=== PATIENT | male | born 1955 | race American Indian/Alaskan Native ===

== ENCOUNTER 2017-01-19 22:55 | Emergency (ER) | payer BC, OTHER ==
[~2017-01-19] VITALS: Ht 167.6 cm; Wt 85.3 kg
[~2017-01-19 22:55] MED LIST: HYDROCHLOROTHIA25 MG PO; MICARDIS40 MG PO; NIFEDICAL XL60 MG PO; ZOCOR20 MG PO
[2017-01-19] MEDS ORDERED: LIPITOR10 MG PO (23:17)
[2017-01-19] MEDS ORDERED: METOPROLOL TAR100 MG PO (23:17)
[2017-01-19] MEDS ORDERED: IRBESARTAN150 MG PO (23:18)
[2017-01-19] MEDS ORDERED: CYCLOBENZAPRINE10 MG PO (23:18)
[2017-01-20] MEDS ORDERED: POTASSIUM CHLO10 MEQ PO (00:42)
--- NOTE | 2017-01-22 21:45 | EKG ---
[facility] [address] [facility] [place] [address] Signed Sinus rhythm with 1st degree AV block Left axis deviation Voltage criteria for left ventricular hypertrophy Abnormal ECG Confirmed by STEPHIE CHARLES MD ([id number]) on 01/22/2017 9:45:26 PM Electronically Signed By: STEPIHE CHARLES MD 01/22/17 2145 PATIENT NAME: MARTITA PARHAM III Electrocardiogram DATE OF : 53 PHYSICIAN: STEPHIE CHARLES MD REPORT #: [id number] REPORT IS CONFIDENTIAL AND NOT TO BE RELEASED WITHOUT AUTHORIZATION
== END 2017-01-20 01:10 | disposition home or self-care (01) ==
LOC: ED 22:55
DX: R55 Syncope and collapse (principal); E87.6 Hypokalemia; I10 Essential (primary) hypertension; E78.00 Pure hypercholesterolemia, unspecified; Z87.891 Personal history of nicotine dependence; Z88.1 Allergy status to other antibiotic agents; Z79.899 Other long term (current) drug therapy
CPT/HCPCS: 80053; 81001; 84484; 85025; 93005; 93010; 99284

== ENCOUNTER 2019-11-14 11:28 | Emergency (ER) | payer MEDICARE, OTHER ==
[~2019-11-14] VITALS: Ht 167.6 cm; Wt 85.3 kg
--- OUTSIDE RECORDS SUMMARY | ~2019-11-14 | XMS | Encounter Summary ---
Demographics + + + | Address | [address] | | | [place] [address] | + + + | Home Phone | | + + + | Preferred Language | Unknown | + + + | Marital Status | | + + + | Pentecostalism Affiliation | Unknown | + + + | Race | Unknown | + + + | Ethnic Group | Unknown | + + + Author + + + | Author | [facility] | | | and [place] | + + + | Organization | [facility] | | | and [place] | + + + | Address | Unknown | + + + | Phone | Unavailable | + + + Support + + + + + | Name | Relationship | Address | Phone | + + + + + | Alie Escobedo | ECON | [address] | | | | | [place] | | | | | [id number] | | + + + + + Care Team Providers + +------+ + | Care Director Of Accounts Payable Name | Role | Phone | + +------+ + | Stanley Kinney PA-C | PCP | | + +------+ + Encounter Details +--------+ + + + + | Date | Type | Department | Care Team | Description | +--------+ + + + + | 01/23/ | Orders Only | [facility] | [place], | Mass of left lung | | 2019 | | HEMATOLOGY AND | Jennifer Juarez MD | (Primary Dx) | | | | [address]OGY [address] | [address] | [place] | | | | | [place] | [address] | | | | | [address] | | | | | | [phone] | | | +--------+ + + + + Social History + +-------+ +--------+------+ | Tobacco Use | Types | Packs/Day | Years | Date | | | | | Used | | + +-------+ +--------+------+ | Former Smoker | | | | | + +-------+ +--------+------+ + + + | Sex Assigned at | Date Recorded | | | | + + + | Not on file | | + + + documented as of this encounter Plan of Treatment +--------+---------+ + + + | Date | Type | Specialty | Care Team | Description | +--------+---------+ + + + | 01/26/ | Office | Cardiology | Iris Malone, | | | 2019 | Visit | | MD Erasmo ESCOTO | | | | | | [place], [place] | | | | | | [address] | | | | | | | | +--------+---------+ + + + documented as of this encounter Visit Diagnoses + + | Diagnosis | + + | Mass of left lung - Primary | + + documented in this encounter"
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
--- OUTSIDE RECORDS SUMMARY | ~2019-11-14 | XMS | Encounter Summary ---
Demographics + + + | Address | [address] | | | [place] [address] | + + + | Home Phone | | + + + | Preferred Language | Unknown | + + + | Marital Status | | + + + | Shinto Affiliation | NRP | + + + | Race | or | + + + | Ethnic Group | Not or | + + + Author + + + | Author | [facility] | + + + | Organization | [facility] [employer] [facility] | + + + | Address | Unknown | + + + | Phone | Unavailable | + + + Support + + + + + | Name | Relationship | Address | Phone | + + + + + | Kim Sigo | ECON | [address] | | | | | [place] | | | | | [address] | | + + + + + | Key Escobedo | ECON | Unknown | | + + + + + | Cathleen Escobedo | ECON | Unknown | | + + + + + Care Team Providers + +------+ + | Care Casino Runner Name | Role | Phone | + +------+ + | Anupama Juárez | PCP | | + +------+ + Reason for Visit AUTH/CERT +--------+--------+ + + + + | Status | Reason | Specialty | Diagnoses / | Referred By | Referred To | | | | | Procedures | Contact | Contact | +--------+--------+ + + + + | | | | | | | +--------+--------+ + + + + Encounter Details +--------+ + + + + | Date | Type | Department | Care Team | Description | +--------+ + + + + | 10/27/ | Anesthesia | 6A Intra Op 3181 | Garrett Adams MD | | | 2020 | Event | [address] | [address] | | | | | [facility] | [place], | | | | | Hospital Admitting | [place] [address] | | | | | Desk Located on the | [phone] | | | | | 9th floor | | | | | | [facility] [place] | [place], | | | | | [address] | [address] | | | | | | [address] | | | | | | [place], [place] | | | | | | [address] | | | | | | [phone] | | | | | | | | +--------+ + + + + Anesthesia Record + + + + + | Procedure Name | Responsible | Anesthesia Start | Anesthesia Stop Time | | | Anesthesiologist | Time | | + + + + + | LEFT THORACOSCOPY, | Garrett Adasm MD | 10/28/19 8487 | 10/28/19 8578 | | THORACOTOMY, LEFT | | | | | LOWER LOBE SUPERIOR | | | | | SEGMENTECTOMY, | | | | | BRONCHOSCOPY (Left ) | | | | + + + + + +----+---+ + + | Da | T | Event | Comment | | te | i | | | | | m | | | | | e | | | +----+---+ + + | 06 | 1 | | | | /1 | 1 | | | | 7/ | 4 | | | | 20 | 6 | | | | 20 | | | | +----+---+ + + | | 1 | Pt. Check | Prior to anesthesia start, pt. Identified, examined, chart | | | 1 | | reviewed, PARQ held, anesthetic plan made or approved by | | | 4 | | attending anesthesiologist. NPO status confirmed as appropriate | | | 6 | | for procedure Preoperative evaluation: unchanged | +----+---+ + + | | 1 | Block Pause | | | | 2 | | | | | 0 | | | | | 7 | | | +----+---+ + + | | 1 | Epidural | | | | 2 | Start | | | | 2 | | | | | 0 | | | +----+---+ + + | | 1 | Epidural | | | | 2 | Stop | | | | 3 | | | | | 0 | | | +----+---+ + + | | 1 | Eq Check | Anesthesia machine checked Equipment verified | | | 3 | | | | | 5 | | | | | 5 | | | +----+---+ + + | | 1 | An Start | | | | 3 | | | | | 5 | | | | | 7 | | | +----+---+ + + | | 1 | An Start | | | | 3 | Data | | | | 5 | | | | | 9 | | | +----+---+ + + | | 1 | Vitals | Monitors applied Vital signs checked Patient ready for anesthesia | | | 4 | Checked | | | | 0 | | | | | 1 | | | +----+---+ + + | | 1 | Ready | | | | 4 | | | | | 2 | | | | | 9 | | | +----+---+ + + | | 1 | ETT | | | | 4 | | | | | 3 | | | | | 4 | | | +----+---+ + + | | 1 | Abx | | | | 4 | Administere | | | | 4 | d | | | | 1 | | | +----+---+ + + | | 1 | Incision | | | | 4 | | | | | 5 | | | | | 2 | | | +----+---+ + + | | 1 | Quick Note | Conversion to open thoracotomy | | | 5 | | | | | 3 | | | | | 4 | | | +----+---+ + + | | 1 | Intraop and | - Patient/Allergies/Procedure - Relevant PMH - Relevant data | | | 6 | Med | (labs/imaging) - Anesthetic (airway, infusions, drug redoses) - | | | 2 | Handoff | Lines/Drains - I/O - Current Phase and significant events - | | | 1 | | Emergence/dispo plans, post-op concerns | +----+---+ + + | | 1 | An Data Art | Surgeon leaning on cuff | | | 6 | | | | | 3 | | | | | 9 | | | +----+---+ + + | | 1 | AN | | | | 8 | Recruitment | | | | 1 | Breath | | | | 3 | | | +----+---+ + + | | 1 | An Two-Lung | | | | 8 | Vent | | | | 1 | | | | | 4 | | | +----+---+ + + | | 1 | Surgery end | | | | 8 | | | | | 4 | | | | | 2 | | | +----+---+ + + | | 1 | An Extubate | Neuromuscular function Intact. Pharynx suctioned. Patient obeys | | | 8 | | commands. Adequate pulmonary mechanics. | | | 4 | | | | | 6 | | | +----+---+ + + | | 1 | an stop | | | | 8 | data | | | | 4 | | | | | 8 | | | +----+---+ + + | | 1 | PACU Rpt | | | | 8 | Given | | | | 5 | | | | | 6 | | | +----+---+ + + | | 1 | Anesthesia | | | | 8 | End | | | | 5 | | | | | 8 | | | +----+---+ + + | | 2 | Post-Op | | | | 0 | Page | | | | 3 | | | | | 0 | | | +----+---+ + + +------+ | Meds | +------+ + + + | Name | Total | + + + | fentaNYL | 150 mcg | + + + | lidocaine 1.5% EPINEPHrine 1:200K | 5 mL | + + + | vancomycin | 1,500 mg | + + + | custom medication (see comments) | 2 g | + + + | propofol | 200 mg | + + + | rocuronium | 150 mg | + + + | ePHEDrine | 20 mg | + + + | PHENYLEPHrine | 600 mcg | + + + | bupivacaine 0.25% | 8 mL | + + + | ondansetron | 4 mg | + + + | sugammadex | 200 mg | + + + | lactated ringers (LR) infusion | 1,000 mL | + + + | LR bolus | 900 mL | + + + + + | Name | + + | O2 FR Avance (Total Liters) | + + | Air FR Avance (l/min) | + + | Insp Sevo | + + | Et Sevo | + + + + | No blood administrations on file. | + + +--------+ + + + | Type | Details | Placement | Removal | +--------+ + + + | Incisi | 10/28/19; 1613; Kristen ERAZO ; | 10/28/19 1613 by | | | on | Left; Lateral; chest | Divya Kebede RN | | +--------+ + + + | Periph | Left; Hand; 18 g; None; 11/01/19; | 10/28/19 1458 by | 11/01/19 0900 by | | eral | 0900; Discharge | | Katarina Franklin RN | | IV | | | | +--------+ + + + | Periph | 10/28/19; 1100; Right; Hand; 20 | 10/28/19 1100 by | 10/29/19 0729 by | | eral | g; 10/29/19; 0729 | Brooklyn Lopez RN | Yudelka Becerra RN | | IV | | | | +--------+ + + + | Epidur | 10/28/19; 1220 (created via | 10/28/19 1220 by | 10/31/19 1550 by | | al | procedure documentation); | Criss Orona, | Katarina Franklin RN | | | Criss Orona MD; | | | | | 10/31/19; 1550; Other (Comment) | | | | | (removed by LIP) | | | +--------+ + + + | Urethr | 10/28/19; 1410; Isaac GONZALEZ ; | 10/28/19 1410 by | 10/31/19 1230 by | | al | Chaka; 16 Fr.; 10 mL; 10/31/19; | Divya Kebede RN | Katarina Franklin RN | | Ashleyet | 1230; Per order, Per protocol | | | | er | | | | +--------+ + + + | ETT | 10/28/19; 1434 (created via | 10/28/19 1434 by | 10/28/19 1846 by | | | procedure documentation); Mariano | Mariano Kent MD | Nayla Herron, | | | MD [place]; Endotracheal Tube; | | HOUSING INSPECTOR | | | 8.5; Oral; 10/28/19; 1845 | | | +--------+ + + + | ETT | 10/28/19; 1510 (created via | 10/28/19 151 by | 10/28/191845 by | | | procedure documentation); Mariano | Mariano Kent MD | Nayla Herron, | | | MD [place]; Double Lumen; 39; | | HOUSING INSPECTOR | | | Oral; Cuffed; 10/28/19; 1845 | | | +--------+ + + + | Chest | 10/28/19; 1757; Standard; Left; | 10/28/19 1757 by | 10/31/19 1030 by | | Tube | Lateral; Pleural; 28 Fr.; | Lynsey Peace, | Katarina Franklin RN | | | 10/31/19; 1030; (removed by LIP) | RN | | +--------+ + + + documented in this encounter Social History + + + +--------+ + | Tobacco Use | Types | Packs/Day | Years | Date | | | | | Used | | + + + +--------+ + | Former Smoker | Cigarettes | 0.5 | 20 | Quit: 2011 | + + + +--------+ + + +---+---+---+ | Smokeless Tobacco: | | | | | Never Used | | | | + +---+---+---+ + + +---------+ + | Alcohol Use | Drinks/Week | oz/Week | Comments | + + +---------+ + | Not Currently | | | stopped ETOH use | | | | | 2013 | + + +---------+ + + + [...] recent travel history available. | + + + + + + | COVID-19 Exposure | Response | Date Recorded | + + + + | In the last month, have you been in contact | No / Unsure | 10/28/2019 9:08 AM | | with someone who was confirmed or | | PDT | | suspected to have Coronavirus / COVID-19? | | | + + + + documented as of this encounter Plan of Treatment +--------+ + + + + | Date | Type | Specialty | Care Team | Description | +--------+ + + + + | 11/15/ | Telephone-S | Thoracic Surgery | Tab, Ronald, MD | | | 2019 | cyn | | [address] [facility] | | | | | | [address] | | | | | | [place], [place] | | | | | | [address] | | | | | | [phone] | | | | | | | | +--------+ + + + + documented as of this encounter Procedures + +--------+ + + + | Procedure Name | Priori | Date/Time | Associated Diagnosis | Comments | | | ty | | | | + +--------+ + + + | ANE ETT | Routin | 10/28/2019 | | Results for this | | | e | 3:27 PM | | procedure are in the | | | | PDT | | results section. | + +--------+ + + + | ANE ETT | Routin | 10/28/2019 | | Results for this | | | e | 3:26 PM | | procedure are in the | | | | PDT | | results section. | + +--------+ + + + | ANE EPIDURAL | Routin | 10/28/2019 | | Results for this | | | e | 12:27 PM | | procedure are in the | | | | PDT | | results section. | + +--------+ + + + documented in this encounter Results ETT (10/28/2019 3:27 PM PDT) + + + | Narrative | Performed At | + + + | Mariano Kent MD 10/28/2019 3:28 PM AIRWAY MANAGEMENT - | | | ETT Time of Placement: 10/28/2019 3:10 PM Intubation Reason: For | | | surgical procedure Positioning: Supine Location Performed:OR | | | OXYGENATION Patient was preoxygenated No apneic oxygenation Grade: | | | Grade 0 - Ventilation by mask not attempted Manual in-Line | | | Stabilization: No Induction:Routine, without Cricoid Pressure | | | INTUBATION ATTEMPT 1 Blade Type: Alexa Blade #: 4 | | | Laryngoscopic View: Grade I Surgical Airway: no Surgical Airway | | | ETT DETAILS ETT Type:Double-lumen Intubation Type: Oral Cuff | | | Status: Cuffed Size: 39F ETT secured with adhesive tape Depth at | | | Lip: 28 cm Airway Leak: No CONFIRMATION airway not difficult | | | Number of Attempts: 1 Atraumatic placement Positive for | | | EtCO2:Waveform capnography NARRATIVE Attending/Authorizing | | | Provider: Garrett Adams MD Performing Provider: Mariano Kent MD | | | | | + + + ETT (10/28/2019 3:26 PM PDT) + + + | Narrative | Performed At | + + + | Mariano Kent MD 10/28/2019 3:27 PM AIRWAY MANAGEMENT - | | | ETT Time of Placement: 10/28/2019 2:34 PM Intubation Reason: For | | | surgical procedure Positioning: Supine Location Performed:OR | | | OXYGENATION Patient was preoxygenated Grade: Grade 2 - Ventilated by | | | mask with oral airway/adjuvant Manual in-Line Stabilization: No | | | Induction:Routine, without Cricoid Pressure INTUBATION ATTEMPT | | | 1 Videolaryngoscopy: [facility] Standard geometry curved blade | | | Laryngoscopic View: Grade II ETT DETAILS ETT Type:Standard, Hi-Lo | | | Cuffed Intubation Type: Oral Size: 8.5 Depth at Lip: 21 cm | | | CONFIRMATION airway not difficult Number of Attempts: 1 Traumatic | | | placment Positive for EtCO2:Waveform capnography Procedural | | | Complications: Lip injury NARRATIVE Attending/Authorizing | | | Provider: Garrett Adams MD Performing Provider: Mariano Kent MD | | | Procedure Comments: Lip laceration on lower right lip noted. Pressure | | | held, bleeding stopped. | | + + + Epidural (10/28/2019 12:27 PM PDT) + + + | Narrative | Performed At | + + + | Lucio Calhoun MD 10/28/2019 3:02 PM Epidural Placement | | | Start Time: 10/28/2019 12:20 PM Placement End Time: 10/28/2019 12:30 PM | | | Block Method: Catheter Block Reason: at surgeon's request for | | | postop pain management Location Performed: Preop The patient was | | | identified, site verified and marked, full PARQ done PROCEDURE | | | Number of Attempts: 1 Note Type: Adult Type Epidural: Epidural | | | Placement Patient Position: Sitting Approach: Paramedian | | | Monitors: NIBP, SpO2 and EKG Skin Prep: Chloraprep Team Pause: | | | Performed per policy Protective Barrier: Cap, Mask, Gown, Hand scrub | | | and Sterile Gloves Patient Status: Sedated but participating | | | Supplemental O2 given TECHNOLOGY USED Technology used: | | | Ultrasound guided and Hodges technique Ultrasound Image: Not | | | saved or printed PLACEMENT Needle Type: Tuohy Needle Size: 17 G | | | Needle Length (cm): 9 cm Vertebral Interspace: T5-6 Needle | | | Insertion Depth: 4.5 Catheter at Skin Depth: 10 Loss of Resistance: | | | saline Paresthesia: No CSF: no cerebrospinal fluid with | | | aspiration Blood Return on Aspiration: no blood return on aspiration | | | ASSESSMENT See MAR for Drug and Dose Test dose given no | | | test dose reaction Sensory band tested by: Pin prick sensation | | | Sensory Band Side: Bilateral Upper Level: T5 Lower Level: T10 | | | Complications: No apparent complications Technical Difficulty: | | | Easy Intended Analgesia: Deferred Procedure Abandoned?: No | | | NARRATIVE Attending was physically present for the critical portions | | | of the procedure as described in the procedure note | | | Attending/Authorizing Provider: Garrett Adams MD Performing Provider: | | | Criss Orona MD Procedure Comments: Uneventful epidural | | | placement, successful on 1st attempt. Ultrasound used to elana | | | landmarks prior to starting attempt. Placed at T5-6 via R paramedian | | | approach. Clear STACY to saline at 4.5 cam. Manometry briskly | | | positive. Catheter passed easily and without paresthesias and | | | secured at 10cm at the skin. Catheter aspiration negative for heme | | | and CSF. Test dose given and negative. T5-10 sensory level after 5mL | | | of test dose. Pt tolerated the procedure well. No apparent | | | complications. | | + + + documented in this encounter Visit Diagnoses Not on filedocumented in this encounter Administered Medications + +--------+ +------+------+------+ | Medication Order | MAR | Action | Dose | Rate | Site | | | Action | Date | | | | + +--------+ +------+------+------+ | bupivacaine (PF) | Given | 10/28/19 | 4 mL | | | | (MARCAINE,SENSORCAINE-MPF) 0.25 % | | 20 6:19 | | | | | (2.5 mg/mL) injection | | PM PDT | | | | | INTRAPROCEDURE PRN, Starting Wed | | | | | | | 10/28/19 at 1743, Until Wed | | | | | | | 10/28/19 at 1858 | | | | | | + +--------+ +------+------+------+ +-------+ +------+---+---+ | Given | 10/28/19 | 4 mL | | | | | 20 5:43 | | | | | | PM PDT | | | | +-------+ +------+---+---+ +---+---+ | | | +---+---+ + +-------+ +-------+---+---+ | ePHEDrine injection | Given | 10/28/19 | 10 mg | | | | INTRAPROCEDURE PRN, Starting Wed | | 20 2:39 | | | | | 10/28/19 at 1436, Until Wed | | PM PDT | | | | | 10/28/19 at 1858 | | | | | | + +-------+ +-------+---+---+ +-------+ +-------+---+---+ | Given | 10/28/19 | 10 mg | | | | | 20 2:36 | | | | | | PM PDT | | | | +-------+ +-------+---+---+ +---+---+ | | | +---+---+ + +-------+ +---------+---+---+ | fentaNYL (SUBLIMAZE) injection | Given | 10/28/19 | 100 mcg | | | | INTRAPROCEDURE PRN, Starting Wed | | 20 2:31 | | | | | 10/28/19 at 1209, Until Wed | | PM PDT | | | | | 10/28/19 at 1858 | | | | | | + +-------+ +---------+---+---+ +-------+ +--------+---+---+ | Given | 10/28/19 | 50 mcg | | | | | 20 12:09 | | | | | | PM PDT | | | | +-------+ +--------+---+---+ +---+---+ | | | +---+---+ + + + +---+---+---+ | lactated ringers (LR) bolus | given by | 10/28/19 | | | | | INTRAPROCEDURE CONTINUOUS PRN, | | 20 6:55 | | | | | Starting 10/28/19 at 1445, | anesthes | PM PDT | | | | | Until 10/28/19 at 1858 | iology | | | | | + + + +---+---+---+ + + +---+---+---+ | given by anesthesiology | 10/28/19 | | | | | | 20 4:21 | | | | | | PM PDT | | | | + + +---+---+---+ | New Bag | 10/28/19 | | | | | | 20 2:45 | | | | | | PM PDT | | | | + + +---+---+---+ +---+---+ | | | +---+---+ + + + +---+---+---+ | lactated ringers (LR) infusion | given by | 10/28/19 | | | | | 10 mL/hr, intravenous, PROCEDURE | | 20 4:20 | | | | | CONTINUOUS, Starting Sat10/28/19 | anesthes | PM PDT | | | | | at 1030, Until Sat10/28/19 at | iology | | | | | | 2059 | | | | | | + + + +---+---+---+ +---------+ + + +---+ | New Bag | 10/28/19 | 10 mL/hr | 10 mL/hr | | | | 20 10:47 | | | | | | AM PDT | | | | +---------+ + + +---+ +---+---+ | | | +---+---+ + +-------+ +------+---+---+ | lidocaine-epinephrine injection | Given | 10/28/19 | 2 mL | | | | INTRAPROCEDURE PRN, Starting | | 20 12:29 | | | | | 10/28/19 at 1225, Until Wed | | PM PDT | | | | | 10/28/19 at 1858 | | | | | | + +-------+ +------+---+---+ +-------+ +------+---+---+ | Given | 10/28/19 | 3 mL | | | | | 20 12:25 | | | | | | PM PDT | | | | +-------+ +------+---+---+ +---+---+ | | | +---+---+ + +-------+ +------+---+---+ | ondansetron (ZOFRAN) injection | Given | 10/28/19 | 4 mg | | | | INTRAPROCEDURE PRN, Starting Wed | | 20 5:50 | | | | | 10/28/19 at 1750, Until Wed | | PM PDT | | | | | 10/28/19 at 1858 | | | | | | + +-------+ +------+---+---+ +---+---+ | | | +---+---+ + +-------+ +-----+---+---+ | OPTIME - CUSTOM INTRAPROCEDURE | Given | 10/28/19 | 2 g | | | | PRN, Starting 10/28/19 at | | 20 2:46 | | | | | 1446, Until 10/28/19 at 1858 | | PM PDT | | | | + +-------+ +-----+---+---+ +---+---+ | | | +---+---+ + +-------+ +---------+---+---+ | PHENYLEPHrine 100 mcg/mL IV | Given | 10/28/19 | 100 mcg | | | | syringe INTRAPROCEDURE PRN, | | 20 6:28 | | | | | Starting Sat10/28/19 at 1628, | | PM PDT | | | | | Until Sat10/28/19 at 1858 | | | | | | + +-------+ +---------+---+---+ +-------+ +---------+---+---+ | Given | 10/28/19 | 100 mcg | | | | | 20 6:14 | | | | | | PM PDT | | | | +-------+ +---------+---+---+ | Given | 10/28/19 | 100 mcg | | | | | 20 6:05 | | | | | | PM PDT | | | | +-------+ +---------+---+---+ +---+---+ | | | +---+---+ + +-------+ +--------+---+---+ | propofoL (DIPRIVAN) injection | Given | 10/28/19 | 200 mg | | | | INTRAPROCEDURE PRN, Starting Wed | | 20 2:31 | | | | | 10/28/19 at 1431, Until Wed | | PM PDT | | | | | 10/28/19 at 1858 | | | | | | + +-------+ +--------+---+---+ +---+---+ | | | +---+---+ + +-------+ +-------+---+---+ | rocuronium injection | Given | 10/28/19 | 30 mg | | | | INTRAPROCEDURE PRN, Starting Wed | | 20 5:19 | | | | | 10/28/19 at 1431, Until Wed | | PM PDT | | | | | 10/28/19 at 1858 | | | | | | + +-------+ +-------+---+---+ +-------+ +-------+---+---+ | Given | 10/28/19 | 20 mg | | | | | 20 4:34 | | | | | | PM PDT | | | | +-------+ +-------+---+---+ | Given | 10/28/19 | 50 mg | | | | | 20 3:21 | | | | | | PM PDT | | | | +-------+ +-------+---+---+ +---+---+ | | | +---+---+ + +-------+ +--------+---+---+ | sugammadex (BRIDION) IV | Given | 10/28/19 | 200 mg | | | | INTRAPROCEDURE PRN, Starting Wed | | 20 6:15 | | | | | 10/28/19 at 1815, Until Wed | | PM PDT | | | | | 10/28/19 at 1858 | | | | | | + +-------+ +--------+---+---+ +---+---+ | | | +---+---+ + +-------+ + +---+---+ | vancomycin (VANCOCIN) injection | Given | 10/28/19 | 1,500 mg | | | | INTRAPROCEDURE PRN, Starting | | 20 2:15 | | | | | 10/28/19 at 1442, Until Wed | | PM PDT | | | | | 10/28/19 at 1858 | | | | | | + +-------+ + +---+---+ +---+---+ | | | +---+---+ documented in this encounter"
--- OUTSIDE RECORDS SUMMARY | ~2019-11-14 | XMS | Encounter Summary ---
Demographics + + + | Address | [address] | | | [place] [address] | + + + | Home Phone | | + + + | Preferred Language | Unknown | + + + | Marital Status | | + + + | Muslim Affiliation | Unknown | + + + | Race | Unknown | + + + | Ethnic Group | Unknown | + + + Author + + + | Author | [facility] | | | and [place] | + + + | Organization | [facility] | | | and [place] | + + + | Address | Unknown | + + + | Phone | Unavailable | + + + Support + + + + + | Name | Relationship | Address | Phone | + + + + + | Alie Ecsobedo | ECON | [address] | | | | | [place] | | | | | [address] | | + + + + + Care Team Providers + +------+ + | Care Radio Survey Worker Name | Role | Phone | + +------+ + | Stanley Kinney PA-C | PCP | | + +------+ + Reason for Referral Diagnostic/Screening (Routine) +--------+--------+ + + + + | Status | Reason | Specialty | Diagnoses / | Referred By | Referred To | | | | | Procedures | Contact | Contact | +--------+--------+ + + + + | Closed | | Radiology | Diagnoses | [place], | [facility] [address] | | | | | Thoracic | MD Iris | [address] | | | | | aortic | [address] | [place], [place] | | | | | aneurysm | [place] | [address] | | | | | without | [place] [address] | Phone: | | | | | rupture | [place], [place] | [phone] | | | | | (HCC) | [address] | Fax: | | | | | Essential | Phone: | [phone] | | | | | hypertension | [phone] | | | | | | Mixed | Fax: | | | | | | hyperlipidem | [phone] | | | | | | ia | | | | | | | Procedures | | | | | | | CT Angiogram | | | | | | | Chest W | | | | | | | Contrast | | | +--------+--------+ + + + + Reason for Visit Diagnostic/Screening (Routine) +--------+--------+ + + + + | Status | Reason | Specialty | Diagnoses / | Referred By | Referred To | | | | | Procedures | Contact | Contact | +--------+--------+ + + + + | Closed | | Radiology | Diagnoses | [place], | [facility] [address] | | | | | Thoracic | MD Iris | [address] | | | | | aortic | [address] | [place], [place] | | | | | aneurysm | [address] | [address] | | | | | without | [place] [address] | Phone: | | | | | rupture | [place], [place] | [phone] | | | | | (HCC) | [address] | Fax: | | | | | Essential | Phone: | [phone] | | | | | hypertension | [phone] | | | | | | Mixed | Fax: | | | | | | hyperlipidem | [phone] | | | | | | ia | | | | | | | Procedures | | | | | | | CT Angiogram | | | | | | | Chest W | | | | | | | Contrast | | | +--------+--------+ + + + + Encounter Details +--------+ + + + + | Date | Type | Department | Care Team | Description | +--------+ + + + + | 01/20/ | Hospital | [facility] | Iris Malone, | Thoracic aortic | | 2019 | Encounter | [facility] | MD [address] | aneurysm without | | | | [address] | [place], [place] | rupture (HCC); | | | | [place], [place] | [address] | Essential | | | | [address] | | hypertension; Mixed | | | | [phone] | | hyperlipidemia | +--------+ + + + + Social [...] + + documented as of this encounter Medications at Time of Discharge + + + +---------+ + + | Medication | Sig | Dispensed | Refills | Start | End Date | | | | | | Date | | + + + +---------+ + + | aspirin 81 MG EC | Take 81 mg by mouth | | 0 | 02/20/20 | | | tablet | daily with | | | 16 | | | | breakfast. | | | | | + + + +---------+ + + | atorvaSTATin | Take 10 mg by mouth | | 0 | 02/14/20 | | | (LIPITOR) 10 mg | nightly. | | | 17 | | | tablet | | | | | | + + + +---------+ + + | | Take 25 mg by mouth | | 0 | 12/08/19 | | | hydroCHLOROthiazide | daily. | | | 16 | | | 25 mg tablet | | | | | | + + + +---------+ + + | irbesartan | Take 1 tablet by | 90 | 2 | 02/28/20 | | | (AVAPRO) 300 mg | mouth nightly. | tablet | | 17 | | | tablet | | | | | | + + + +---------+ + + | methocarbamol | Take 500 mg by mouth | | 0 | 12/08/19 | | | (ROBAXIN) 500 mg | every 6 (six) hours | | | 16 | | | tablet | as needed. | | | | | + + + +---------+ + + | metoprolol | Take 100 mg by mouth | | 0 | 12/08/19 | | | tartrate (LOPRESSOR) | 2 (two) times | | | 16 | | | 100 mg tablet | daily. | | | | | + + + +---------+ + + | cyclobenzaprine | Take 10 mg by mouth | | 0 | 02/14/20 | | | (FLEXERIL) 10 mg | nightly as needed | | | 17 | 0 | | tablet | for Muscle spasms. | | | | | + + + +---------+ + + documented as of this encounter Plan of Treatment +--------+---------+ + + + | Date | Type | Specialty | Care Team | Description | +--------+---------+ + + + | 01/26/ | Office | Cardiology | Iris Malone, | | | 2019 | Visit | | MD [address]asm[address] | | | | | | [place] | | | | | | [address] | | | | | | | | +--------+---------+ + + + documented as of this encounter Procedures + +--------+ + + + | Procedure Name | Priori | Date/Time | Associated Diagnosis | Comments | | | ty | | | | + +--------+ + + + | CT ANGIOGRAM CHEST W | Routin | 01/20/2019 | Thoracic aortic | Results for this | | CONTRAST | e | 12:27 PM | aneurysm without | procedure are in the | | | | PDT | rupture (HCC) | results section. | | | | | Essential | | | | | | hypertension Mixed | | | | | | hyperlipidemia | | + +--------+ + + + | CREATININE, POCT | Routin | 01/20/2019 | | Results for this | | | e | 11:49 AM | | procedure are in the | | | | PDT | | results section. | + +--------+ + + + documented in this encounter Results CT Angiogram Chest W Contrast (01/20/2019 12:27 PM PDT) + + | Specimen | + + | | + + + + | Addenda | + + | Addendum by Aquiles Mirza MD on 02/02/2019 7:49 AM ADDENDUM BEGINS Please note the | | following clarification within the findings: CHEST Lungs, Pleura and Airways: In | | the left LOWER lobe, there is a mixed ground-glass and solid spiculated nodule seen | | measuring 1.9 cm x 1.2 cm on series 8, image 58. Mediastinum: No cardiomegaly or | | pericardial effusion.. Lymph Nodes: No enlarged lymph nodes seen. Upper Abdomen: No | | significant abnormality appreciated. BODY WALL Soft Tissues: No significant | | abnormality appreciated. Bones: Patient is post sternotomy. No acute or destructive | | osseous process seen. Signed by: Liliana Mirza Amit Sign Date/Time: | | 02/02/2019 7:45 AM ADDENDUM ENDS | + + + + + | Narrative | Performed At | + + + | CT ANGIOGRAM CHEST CLINICAL INFORMATION: Thoracic aortic | [facility] | | aneurysm without rupture. Essential hypertension Mixed hyperlipidemia | | | COMPARISON: None PROCEDURE: Thin-section images of the | | | entire chest after the administration of 100 ml Omnipaque 350 | | | intravenous contrast. 3D and multiplanar reconstructions were | | | performed. At least one of the following CT dose optimization | | | techniques were used: Automated exposure control; Adjustment of mA | | | and/or kV according to patient size; Use of iterative reconstruction | | | technique. FINDINGS: AORTA: The patient appears to be post | | | ascending thoracic aortic surgery. The ascending aorta measures 3.8 | | | cm in maximum diameter. The aortic dissection appreciated. Mild | | | atherosclerosis. No narrowing noted involving the brachiocephalic, | | | subclavian and visualized proximal common carotid and vertebral | | | arteries. No narrowing noted involving the visualized celiac trunk. | | | PULMONARY ARTERIES: Do not appear to be well opacified with | | | contrast. CHEST Lungs, Pleura and Airways: In the left upper | | | lobe, there is a mixed ground-glass and solid spiculated nodule seen | | | measuring 1.9 cm x 1.2 cm on series 8, image 58. Mediastinum: | | | mediastinum Lymph Nodes: chest nodes Upper Abdomen: upper abdomen | | | BODY WALL Soft Tissues: wall Bones: bones IMPRESSION: 1. Left | | | lower lobe mixed ground-glass and solid spiculated nodule measuring | | | 1.9 cm x 1.2 cm. Lung lesion with imaging features highly | | | suggestive of malignancy. Recommendation: Thoracic specialist referral | | | for definitive management. Consider staging PET CT. (Lung RADS4x | | | recommendation). In addition, if prior examinations are available, | | | comparison is also recommended to assess for stability. 2. No | | | enlarged lymph nodes seen. 3. Patient appears to be post ascending | | | thoracic aortic surgery. The ascending aorta measures 3.8 cm in | | | maximum diameter. No aortic dissection appreciated. 4. Please | | | refer to the findings section for additional details. Findings | | | will be called immediately to the referring physician. | | | Signed by: Liliana Mirza, Aquiles Sign Date/Time: 01/21/2019 10:41 AM | | + + + + + | Procedure Note | + + | Robby, Rad Results In - 01/21/2019 10:45 AM PDT | | CT ANGIOGRAM CHEST | | | | CLINICAL INFORMATION: | | Thoracic aortic aneurysm without rupture. Essential hypertension Mixed | | hyperlipidemia | | | | COMPARISON: | | None | | | | PROCEDURE: | | Thin-section images of the entire chest after the administration of 100 | | ml Omnipaque 350 intravenous contrast. 3D and multiplanar | | reconstructions were performed. | | | | At least one of the following CT dose optimization techniques were | | used: Automated exposure control; Adjustment of mA and/or kV according | | to patient size; Use of iterative reconstruction technique. | | | | FINDINGS: | | AORTA: The patient appears to be post ascending thoracic aortic | | surgery. The ascending aorta measures 3.8 cm in maximum diameter. The | | aortic dissection appreciated. Mild atherosclerosis. No narrowing | | noted involving the brachiocephalic, subclavian and visualized proximal | | common carotid and vertebral arteries. No narrowing noted involving | | the visualized celiac trunk. | | | | PULMONARY ARTERIES: Do not appear to be well opacified with contrast. | | | | CHEST | | Lungs, Pleura and Airways: In the left upper lobe, there is a mixed | | ground-glass and solid spiculated nodule seen measuring 1.9 cm x 1.2 cm | | on series 8, image 58. | | Mediastinum: mediastinum | | Lymph Nodes: chest nodes | | Upper Abdomen: upper abdomen | | | | BODY WALL | | Soft Tissues: wall | | Bones: bones | | | | IMPRESSION: | | 1. Left lower lobe mixed ground-glass and solid spiculated nodule | | measuring 1.9 cm x 1.2 cm. Lung lesion with imaging features highly | | suggestive of malignancy. Recommendation: Thoracic specialist referral | | for definitive management. Consider staging PET CT. (Lung RADS4x | | recommendation). In addition, if prior examinations are available, | | comparison is also recommended to assess for stability. | | 2. No enlarged lymph nodes seen. | | 3. Patient appears to be post ascending thoracic aortic surgery. The | | ascending aorta measures 3.8 cm in maximum diameter. No aortic | | dissection appreciated. | | 4. Please refer to the findings section for additional details. | | | | | | Findings will be called immediately to the referring physician. | | | | | | | | | | Signed by: Liliana Mirza, Aquiles | | Sign Date/Time: 01/21/2019 10:41 AM | + + + +---------+ + + | Performing | Address | City/State/Zipcode | Phone Number | | Organization | | | | + +---------+ + + | [facility] | | | | + +---------+ + + POC Creatinine (01/20/2019 11:49 AM PDT) + + + + + + | Component | Value | Ref Range | Performed | Pathologist | | | | | At | Signature | + + + + + + | Creatinine, | 0.7 | 0.7 - 1.5 mg/dL | [facility] | | | POC | | | LABORATORY | | + + + + + + | EGFR, POC | >60Comment: GFR <60: | mL/min/1.73m2 | [facility] | | | | CHRONIC KIDNEY DISEASE, | | LABORATORY | | | | IF FOUND OVER A 3 MONTH | | | | | | PERIOD.GFR <15: KIDNEY | | | | | | FAILURE.FOR | | | | | | AMERICANS, MULTIPLY THE | | | | | | CALCULATED GFR BY | | | | | | 1.210.This eGFR is | | | | | | calculated using the | | | | | | [facility] traceable | | | | | | equation.Testing | | | | | | performed at [facility] | | | | | | [facility];[place], [place] | | | | | | [address] | | | | + + + + + + + + | Specimen | + + | | + + + + + + + | Performing | Address | City/State/Zipcode | Phone Number | | Organization | | | | + + + + + | [facility] | [address] | [place] [address] | [phone] | + + + + + documented in this encounter Visit Diagnoses + + | Diagnosis | + + | Thoracic aortic aneurysm without rupture (HCC) Thoracic aneurysm without mention of | | rupture | + + | Essential hypertension Unspecified essential hypertension | + + | Mixed hyperlipidemia | + + documented in this encounter Administered Medications + +--------+ +---------+------+------+ | Medication Order | MAR | Action | Dose | Rate | Site | | | Action | Date | | | | + +--------+ +---------+------+------+ | iohexol (OMNIPAQUE 350) 350 | Given | 01/21/20 | 100 mLs | | | | mg/mL injection 100 mL 100 mL, | | 19 12:27 | | | | | Intravenous, ONCE PRN, Other, | | PM PDT | | | | | Starting 01/20/19 at 1226, For | | | | | | | 1 dose, Cat Scanner | | | | | | + +--------+ +---------+------+------+ +---+---+ | | | +---+---+ documented in this encounter"
--- OUTSIDE RECORDS SUMMARY | ~2019-11-14 | XMS | Encounter Summary ---
Demographics + + + | Address | [address] | | | [place] [address] | + + + | Home Phone | | + + + | Preferred Language | Unknown | + + + | Marital Status | | + + + | Catholic Affiliation | NRP | + + + | Race | or | + + + | Ethnic Group | Not or | + + + Author + + + | Author | [facility] | + + + | Organization | [facility] | + + + | Address | Unknown | + + + | Phone | Unavailable | + + + Support + + + + + | Name | Relationship | Address | Phone | + + + + + | Kim Sigo | ECON | [address] | | | | | [place] | | | | | [address] | | + + + + + | Key Escobedo | ECON | Unknown | | + + + + + | Cathleen Escobedo | ECON | Unknown | | + + + + + Care Team Providers + +------+ + | Care Grouter Helper Name | Role | Phone | + +------+ + | Anupama Juárez | PCP | | + +------+ + Encounter Details +--------+ + + + + | Date | Type | Department | Care Team | Description | +--------+ + + + + | 10/27/ | Procedure | [address] | | | | 2020 | Pass | [facility] | | | | | | [facility] | | | | | | Desk Located on the | | | | | | 9th floor | | | | | | [place], [place] | | | | | | [address] | | | +--------+ + + + + Social History + + + +--------+ + [...] | Ronald Barth MD | | | 2019 | cyn | | [address] [facility] | | | | | | [address] | | | | | | [place], [place] | | | | | | [address] | | | | | | [phone] | | | | | | | | +--------+ + + + + documented as of this encounter Visit Diagnoses Not on filedocumented in this encounter"
--- OUTSIDE RECORDS SUMMARY | ~2019-11-14 | XMS | Encounter Summary ---
Demographics + + + | Address | [address] | | | [place] [address] | + + + | Home Phone | | + + + | Preferred Language | Unknown | + + + | Marital Status | | + + + | Temple Affiliation | Unknown | + + + | Race | Unknown | + + + | Ethnic Group | Unknown | + + + Author + + + | Author | [facility] | | | and [place] | + + + | Organization | [facility] | | | and [place] | + + + | Address | Unknown | + + + | Phone | Unavailable | + + + Support + + + + + | Name | Relationship | Address | Phone | + + + + + | Floranjit Fanny | ECON | [address] | | | | | [place] | | | | | [address] | | + + + + + Care Team Providers + +------+ + | Care Locomotive Firer/Fireman Name | Role | Phone | + +------+ + | Raiza Slaughter PA-C | PCP | | + +------+ + Encounter Details +--------+ + + + + | Date | Type | Department | Care Team | Description | +--------+ + + + + | 12/07/ | Orders Only | [facility] | Conversion | | | 2016 | | CONVERSION [address] | Transaction, | | | | | [address] | Provider Unknown | | | | | [place] | [phone] | | | | | [address] | | | | | | [phone] | | | +--------+ + + + + Social History + +-------+ +--------+------+ | Tobacco Use | Types | Packs/Day | Years | Date | | | | | Used | | + +-------+ +--------+------+ | Never Assessed | | | | | + +-------+ [...] [place] | | | | | | [id number] | | | | | | | | +--------+---------+ + + + documented as of this encounter Visit Diagnoses Not on filedocumented in this encounter"
--- OUTSIDE RECORDS SUMMARY | ~2019-11-14 | XMS | Encounter Summary ---
Demographics + + + | Address | [address] | | | [place] [address] | + + + | Home Phone | | + + + | Preferred Language | Unknown | + + + | Marital Status | | + + + | Islam Affiliation | NRP | + + + | Race | or | + + + | Ethnic Group | Not or | + + + Author + + + | Author | [facility] | + + + | Organization | [facility] | + + + | Address | Unknown | + + + | Phone | Unavailable | + + + Support + + + + + | Name | Relationship | Address | Phone | + + + + + | Kim Sigo | ECON | [address] | | | | | [place] | | | | | [address] | | + + + + + | Key Escobedo | ECON | Unknown | | + + + + + | Cathleen Escobedo | ECON | Unknown | | + + + + + Care Team Providers + +------+ + | Care Brim Flexer Name | Role | Phone | + +------+ + | Anuapma Juárez | PCP | | + +------+ + Encounter Details +--------+---------+ + + + | Date | Type | Department | Care Team | Description | +--------+---------+ + + + | 06/25/ | Office | Cardiothoracic | Destin Scott, | H/O ascending aortic | | 2015 | Visit | Surgery at The | [address] | replacement | | | | [place] [address] | [place] [address] | (Primary Dx) | | | | [address] | [phone] | | | | | [place], [place] | | | | | | [address] | | | | | | [phone] | | | +--------+---------+ + + + Social History + +-------+ [...] + + documented as of this encounter Last Filed Vital Signs + + + + + | Vital Sign | Reading | Time Taken | Comments | + + + + + | Blood Pressure | 146/90 | 06/25/2014 9:14 AM | | | | | PST | | + + + + + | Pulse | 72 | 06/25/2014 9:14 AM | | | | | PST | | + + + + + | Temperature | - | - | | + + + + + | Respiratory Rate | 16 | 06/25/2014 9:14 AM | | | | | PST | | + + + + + | Oxygen Saturation | 98% | 06/25/2014 9:14 AM | | | | | PST | | + + + + + | Inhaled Oxygen | - | - | | | Concentration | | | | + + + + + | Weight | 98.9 kg (218 lb) | 06/25/2014 9:14 AM | | | | | PST | | + + + + + | Height | - | - | | + + + + + | Body Mass Index | 35.2 | 09/04/2013 5:41 PM | | | | | PDT | | + + + + + documented in this encounter Progress Notes Destin Scott MD - 06/25/2014 9:24 AM [facility] [place] Date of Service: 06/25/2014 Referring Providers: Andrea Chou MD Patient Care Team: Anupama Juárez as PCP - General (NURSE PRACTITIONER FAMILY) Reason for Visit: Aortic Follow-up Subjective: Mr. Richard Escobedo is well known to our service. Briefly, he is a 59 year old m vince who presented with an Ascending Aortic Aneurysm and underwent Aneurysms repir with A 30 mm dacron tube graft 09/04/2013. He did well postoperateively. He has some chrnic neck pa in and is being treated for a URI with Azithromycin. He has been followed in our clinic wit h serial imaging and his most recent imaging from May shows a stable ascending aortic re construction. He has a 1mm nodule in the IRENE that has been stable. He has some intermittent SOB. No PND and no overt heart failure symptoms. He denies ortho pnea, palpitations and chest pain. The patient also denies dizziness, focal weakness or num bness, abdominal pain, a cool extremity, or other symptoms consistent with malperfusion. Objective: Vital Signs: BP 146/90 | Pulse 72 | RR 16 | Wt 98.884 kg (218 lb) | SpO2 98% | BMI 35.2 kg/ (m^2) General: healthy, alert and cooperative. Chest: Percussion normal. Good diaphragmatic excursion. Lungs clear to auscultation bilater ally.. Chest Incision: Well healed. Cardiovascular: PMI normal. No lifts, heaves, or thrills. RRR. Heart sounds normal. No mur murs, clicks or gallops. Abdominal aorta pulsation normal. Carotid, Femoral and pedal pulse s 4+ bilaterally. No arterial bruits. No peripheral edema.. Extremities: Extremities normal. No deformities, edema, or skin discoloration. Peripheral p ulses 2+ equal with peripheral filling less than 2 seconds.. Studies: I personally reviewed the patient's CT scan. Aorta looks ok. Assessment/Plan: In summary, Mr. Escobedo is doing well almost a giovana after his aortic reconstruction. I reitera matthew with Mr. Escobedo the importance of maintaining good blood pressure control and regular foll owup with serial imaging. Mr. Escobedo is also aware that if he experiences new or unusual ches t pain, back pain or symptoms consistent with malperfusion, he should seek attention immedia tely. I plan on seeing Mr. Escobedo in [address] a repeat CT. We will get a Echocardiogram [place] to make sure his aortic valve is OK. I did not hear a murmur but he is having a littl e bit of shortness of breath and he did have a very dilated aorta. Counseled him with regard to exercise and weight loss as well. I spent 45 minutes of face to face time, obtaining a history, examining the patient, and ov er 50% of this time was spent counseling and coordinating care focused on his aortic disease , his recent imaging and answering questions. Electronically signed Destin Scott MD, FACS, FACC Professor, Department of Surgery Head, Adult Cardiac Surgery Section Co-Director, Multidisciplinary Heart Valve Clinic [facility] | [email or web address] documented in this en counter Plan of Treatment +--------+ + + + + | Date | Type | Specialty | Care Team | Description | +--------+ + + + + | 11/15/ | Telephone-S | Thoracic Surgery | Ronald Barth MD | | | 2019 | cyn | | [address] | | | | | | [address] | | | | | | [place], [place] | | | | | | [address] | | | | | | [phone] | | | | | | | | +--------+ + + + + documented as of this encounter Visit Diagnoses + + | Diagnosis | + + | H/O ascending aortic replacement - Primary Personal history of surgery to heart and | | great vessels, presenting hazards to health | + + documented in this encounter"
--- OUTSIDE RECORDS SUMMARY | ~2019-11-14 | XMS | Encounter Summary ---
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 sterilely prepped and draped in the | | usual fashion. Local lidocaine was administered in the skin and | | underlying tissues, and a tiny dermatotomy was made. Under CT guidance, | | a 19/20 gauge Temno coaxial needle system was used to obtain 5 core | | biopsies of the target lesion. Samples were placed in saline soaked | | gauze and sent to pathology for evaluation. Preliminary evaluation was | | deemed to be adequate. The patient tolerated the procedure well | | without complication. | | | | Conscious sedation was administered. The nurse administered 50 mcg of | | fentanyl and 1 mg of Versed medications during the examination and | | monitored blood pressure, heart rate, and pulse oximeter. Physician | | intraservice time of 30 minutes. | | | | At least one of the following CT dose optimization techniques were | | used: Automated exposure control; Adjustment of mA and/or kV according | | to patient size; Use of iterative reconstruction technique. | | | | FINDINGS: | | Successful left lower lobe, apical segment, lung nodule biopsy with | | small postprocedural pulmonary hemorrhage. No pneumothorax. | | | | IMPRESSION: | | Successful left lower lobe pulmonary nodule biopsy. | | | | | | | | Signed by: Liliana Louise David | | Sign Date/Time: 09/23/2019 3:47 PM | + + + +---------+ + + | Performing | Address | City/State/Zipcode | Phone Number | | Organization | | | | + +---------+ + + | [facility] | | | | + +---------+ + + Surgical Pathology Exam (09/23/2019 12:45 PM PDT) + + | Specimen | + + | Tissue - Specimen | | from lung (specimen) | + + + + + | Narrative | Performed At | + + + | THIS IS | [facility] | | AN ADDENDUM REPORT SPECIMEN(S): A LEFT LUNG NODULE SPECIMEN | [employer] | | SOURCE:A. LEFT LUNG NODULE CLINICAL HISTORY:64 M with enlarging LLL | | | nodule. FINAL PATHOLOGIC DIAGNOSIS:Left lower lobe lung nodule, | | | CT-guided needle core biopsies:- Adenocarcinoma. See Comment. | | | COMMENT:TTF-1 immunostain will be performed to confirm pulmonary | | | origin, and reported by addendum. Ancillary testing (EGFR, ALK, ROS1, | | | BRAF and PD-L1) will also be ordered and reported separately. As part | | | of [facility]' Quality Improvement Program, this case was | | | reviewed by another member of our pathology staff. AMB:BES:emb:C1NR | | | MICROSCOPIC EXAMINATION:Histologic sections of all submitted blocks | | | are examined by light microscopy. These findings, together with the | | | gross examination, support the pathologic diagnosis. GROSS | | | DESCRIPTION:The specimen, labeled "WS, left lung," and designated on | | | the requisition "left lung nodule," is received fresh for | | | intraprocedural consult and consists of two core fragment(s) of olivares | | | tissue measuringup to 0.5 cm. An intraprocedural touch prep was | | | performed by Dr. Anisa Fuller to assess specimen adequacy. The results | | | were communicated to the radiologist as follows:Core #1: Appears | | | adequate The cores are inked with eosin and submitted in cassettes | | | (A1).AT (under the direct supervision of a pathologist) The Gross | | | Description was prepared using a voice recognition system. The | | | report was reviewed for accuracy; however, sound-alike word errors, | | | addition and/or deletions may occur. If there is anyquestion about | | | this report, please contact Client Services. PERFORMING LABORATORY:The | | | technical component was performed by [facility], [facility] | | | [place] [address] (Marketing Communications Assistant: Anisa Fuller MD; CLIA# | | | [id number]). Professional interpretation was performed by[facility] | | [facility], [facility], [address] [place] [address], | | | [place] [address] (Marketing Communications Assistant: Andrea Zepeda M.D.; CLIA#: | | | [id number]). ADDITIONAL NOTES:Immunohistochemical and/or in situ | | | hybridization studies were performed on this case with the appropriate | | | positive controls that react as expected. This test was developed | | | and its performancecharacteristics determined by [facility]. | | | It has not been cleared or approved by the U.S. Food and Drug | | | Administration. The FDA has determined that such clearance or | | | approval is notnecessary. This test is used for clinical purposes. | | | It should not be regarded as investigational or for research. | | | [facility] is certified under the Clinical Laboratory | | | ImprovementAmendments of 1988 (CLIA) as qualified to perform high | | | complexity clinical laboratory testing. REASON FOR ADDENDUM:To add | | | immunostain results. ADDENDUM COMMENT:TTF-1 is performed on block A1 | | | and shows strong nuclear positivity in the tumor cells. Please | | | correlate this result with the original diagnosis. AMB:emb REASON FOR | | | ADDENDUM:To add results of additional testing. ADDENDUM PATHOLOGIC | | | DIAGNOSIS:PD-L1 expression by IHC:- Tumor proportion score: Less | | | than 1%.- Interpretation of PD-L1 expression level: No expression | | | (less than 1%).- Intensity: Absent. ADDENDUM COMMENT:PD-L1 protein | | | expression by immunohistochemistry is performed on block A1 at the | | | request of Dr. Fuller. ARW:viancaw Immunohistochemistry (IHC) studies for | | | PD-L1 using the concentrated Dako 22C3 clone on the VENTANA BenchMark | | | Ultra platform with OptiView detection was performed at [facility] | | | [facility], [address] [place] [address]. The Dako 22C3 | | | pharmDx clone is not FDA approved for use on the VENTANA platform; | | | however, comparison studies show nearly 100% concordance of results | | | for the testperformed using the concentrated Dako 22C3 clone on the | | | VENTANA BenchMark Ultra platform compared to the FDA approved Dako | | | 22C3 pharmDx protocol on the Dako Autostainer Link48 (ASL48) | | | platform*. Thetest using the concentrated Dako 22C3 clone was | | | developed and its performance characteristics determined by [facility] | | | [facility], but this does not represent FDA-approved application of | | | this assay. [facility] is certified under the Clinical | | | Laboratory Improvement Amendment of 1988 (CLIA) as qualified to | | | perform high complexity clinical laboratory testing. This test is | | | used for clinicalpurposes. It should not be regarded as | | | investigational or for research. * Use of the 22C3 anti | | | | | | PD-L1 antibody to determine PD-L1 expression in multiple automated | | | immunohistochemistry platformsTanvi Gallardo, Jeannie S, Kai | | | C, Alin L, Callie J, et al. (2017). Use of the 22C3 anti | | | | | | PD-L1 antibody to determine PD-L1 expression in multiple automated | | | immunohistochemistry platforms. PLOSONE 12(8): n1940434. | | | https://doi.org/10.1371/journal.pone.3242938 The technical component | | | and professional interpretation were performed by [facility], | | | [address] [place] [address] (Marketing Communications Assistant: | | | Dwaine Baird D.O.; CLIA#:[id number]). ADDITIONAL NOTES:The BRAF | | | and EGFR mutation analysis tests are qualitative real-time PCR assays | | | based on two processes: (1) genomic DNA extraction from | | | formalin-fixed, paraffin-embedded tissue (FFPET); (2) PCRamplification | | | and detection of target DNA. The FDA-approved malaika(r) 4800 EGFRv2 | | | Mutation Test is an in vitro diagnostic device (IVD) real-time PCR | | | assay designed for the qualitative detection of mutations involving | | | exons 18-21 of the EGFRoncogene in non-small cell lung cancer (NSCLC) | | | tumor tissue. The test shows cross-reactivity (result of Mutation | | | Detected) to p.L747S mutation in exon 19, a rare acquired mutation | | | that may conferresistance to TKI treatment. The following mutations | | | can be detected by the EGFR test, but not all are specifically | | | designated:G719X substitution mutations in exon 18 (p.G719A | | | (c.2156G>C), p.G719C (c.2155G>A), and p.G719S (c.2155G>T)) Deletion | | | mutations in exon 19 (c.2240_2251del12, c.2239_2247del9, | | | c.2238_2255del18, c.2235_2249del15, c.2236_2250del15, | | | c.2239_2253del15, c.2239_2256del18, c.2237_2254del18, | | | c.2240_2254del15,c.2240_2257del18, c.2239_2248TTAAGAGAAG>C, | | | c.2239_2251>C, c.2237_2255>T, c.2235_2255>AAT, c.2237_2252>T, | | | c.2239_2258>CA, c.2239_2256>CAA, c.2237_2253>TTGCT, c.2238_2252>GCA, | | | c.2238_2248>GC,c.2237_2251del15, c.2236_2253del18, c.2235_2248>AATTC, | | | c.2235_2252>AAT, c.2235_2251>AATTC, c.2253_2276del24, c.2237_2257>TCT, | | | c.2238_2252del15, and c.2233_2247del15)p.T790M substitution mutation | | | in exon 20 (c.2369C>T)p.S768I substitution mutation in exon 20 | | | (c.2303G>T)Insertion mutations in exon 20 (c.2307_2308ins9GCCAGCGTG, | | | c.2319_2320insCAC, c.2310_2311insGGT, c.2311_2312ins9GCGTGGACA, and | | | c.2309_2310AC>CCAGCGTGGAT)p.L858R substitution mutations in exon 21 | | | (c.2573T>G and c.2573_2574TG>GT)p.L861Q substitution mutation in exon | | | 21 (c.2582T>A) The BRAF V600 Mutation Test is designed to detect | | | V600E (O8802Z). Some non-V600E mutations, V600K, V600D, and V600E2, | | | may be detected by the assay.Performance characteristics of | | | non-melanoma samples for the BRAF mutation analysis test have been | | | determined by [facility], [address] [place], but | | | have not been cleared orapproved by the US Food and Drug | | | Administration (FDA). The FDA has determined that such clearance or | | | approval is not necessary. This laboratory is certified under the | | | Clinical Laboratory ImprovementAmendments (CLIA) as qualified to | | | perform high complexity clinical laboratory testing. These tests are | | | used for clinical purposes and should not be regarded as | | | investigational or for research.Tumor samples are non-homogenous and | | | data from one section of tumor may not be concordant with data from | | | other sections of the same tumor. Tumor samples may also contain | | | non-tumor tissue, and DNA from these areas would not be expected to | | | contain an EGFR mutation. In instances where the FFPET specimen | | | contains highly degraded DNA, PCR inhibitors, or the frequency of a | | | target mutation is verylow with respect to the wild-type background | | | (<5%) the assay may fail to detect a mutation, leading to a | | | false-negative result. PERFORMING LABORATORY:The technical and | | | professional components of the BRAF and EGFRv2 Mutation Test were | | | performed at [facility], [address] [place], [place] | | | [address] (Marketing Communications Assistant: Amrit Horton MD, PhD;[facility]# [id number]). | | | REASON FOR ADDENDUM:This case is addended for the addition of BRAF and | | | EGFR Mutation Analysis results. ADDENDUM PATHOLOGIC | | | DIAGNOSIS:[id number], A1LEFT LUNG NODULE: Mutation DETECTED - See | | | table and comments. 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 This type of EGFR | | | mutation is associated with sensitivity to EGFRtyrosine kinase | | | inhibitors (TKIs) (1). This assay is not intended to diagnose any | | | particular type of cancer, but as an aid to clinicians, is intended to | | | be used as an adjunct to other prognostic factors to select eligible | | | patients for therapy.1. Ines et al. Molecular testing guideline | | | for selection of lung cancer patients for EGFR and ALK tyrosine | | | kinase inhibitors: Guideline from the [employer] | | | Pathologists, InternationalAssociation for the Study of Lung Cancer, | | | and Association for Molecular Pathology. J Thorac Oncol. | | | 2013;8(7):823-178. ADDENDUM CLINICAL HISTORY:Client Request: BRAF | | | and EGFR Mutation Analysis requested by Dr. Fuller per hospital | | | protocol. ADDENDUM MICROSCOPIC EXAMINATION:An HE slide for each case | | | is reviewed by a board certified pathologist to confirm the cells of | | | interest are present in adequate numbers to proceed with testing and | | | to identify areas formacrodissection. If the cells are not present in | | | adequate numbers, testing is not performed. ADDENDUM GROSS | | | DESCRIPTION:DNA was extracted from 5 unstained slides from tissue | | | block A1, numbered [id number], belonging to patient SIGO III, | | | MARTITA. REASON FOR ADDENDUM:To add results of additional testing. | | | Left lung nodule, ALK lung FISH analysis: Results: Not Detected | | | Interpretation:ALK rearrangement: Not detected Interphase FISH | | | analysis was performed using the ALK Break Apart FISH Probe Kit. FISH | | | probe signals were within the normal reference range. This represents | | | a NORMAL result and suggests that ALKinhibitors are not indicated. | | | Clinical correlation is recommended. Probe Set Detail:nuc | | | stefany(ALKx1>1)[50] Reference Ranges:ALK Lung: The sample is considered | | | positive if >50% of the first 50 cells scored are positive, and | | | considered negative if <10% cells are positive. If 10-50% of cells are | | | positive, an additional 50cells are evaluated by a second | | | technologist. The sample is then considered positive if > or = 15% of | | | all 100 cells scored are positive. Nuclei Scored: 50 Probe set: ALK | | | LungScoring method: ManualCPT code: 02021# of units: 1 | | | Electronic SignatureAlize Soliman M.D., Pathologist All controls | | | were within expected ranges.The Technical Component Processing and | | | Analysis of this test was completed at [facility], [address] | | [address] [place], [place] / [address] / [phone] / [place] #[id number] / | | | Marketing Communications Assistant(s):Sydnie Sung M.D. (Accession/CaseNo: | | | [id number]) The Professional Component of this test was | | | completed at [facility] [place], [address], | | | [place] [address] / / Fax: [phone] | | | [phone].Fio FISH test uses either FDA cleared | | | and/or analyte specific reagent (ASR) probes. This test was developed | | | and its performance characteristics determined by the | | | performinglaboratory. It has not been cleared or approved by the U.S. | | | Food and Drug Administration (FDA). The FDA has determined that such | | | clearance or approval is not necessary. This test is used for clinical | | | purposes and should not be regarded as investigational or for | | | research. This laboratory is regulated under CLIA '88 as qualified to | | | perform high complexity testing. Interphase FISH does not | | | includeexamination of the entire chromosomal complement.Images that | | | may be included within this report are disability representative of the patient | | | but not all testing in its entirety and should not be used to render a | | | result.The CPT codes provided with our test descriptions are based on | | | AMA guidelines and are for informational purposes only. Correct CPT | | | coding is the sole responsibility of the billing democrat. Please | | | directany questions regarding coding to the payer being billed. Left | | | lung nodule, ROS1 FISH analysis: Results: Not | | | DetectedInterpretation:ROS1 rearrangement: Not Detected Interphase | | | FISH analysis was performed using the ROS1 Break Apart FISH Probe Kit. | | | A ROS1 gene rearrangement was not detected and result suggests that | | | ROS1 inhibitors are not indicated. Clinical correlation is recommended | | | for full assessment of disease. Probe Set Detail:ROS1: nuc | | | stefany(ROS1x1>1)[50] Reference Ranges:ROS1: The sample is considered | | | positive if >50% of the first 50 cells scored are positive, and | | | considered negative if <10% cells are positive. If 10-50% of cells are | | | positive, an additional 50 cellsare evaluated by a second | | | technologist. The sample is then considered positive if > or = 15% of | | | all 100 cells scored are positive. Nuclei Scored: 50 Probe set: | | | WLP1Lldcwxh method: ManualCPT code: 15755# of units: 1 | | | Electronic Melba Soliman M.D., Pathologist All controls | | | were within expected ranges.The Technical Component Processing and | | | Analysis of this test was completed at [facility], | | | [place], [place] / [address] / [phone] / CLIA #[id number] / | | | Marketing Communications Assistant(s): Sydnie Sung M.D. (Accession/CaseNo: | | | [id number]) The Professional Component of this test was | | | completed at [facility] [address], | | | [place] [address] / / Fax: [phone] | | | [phone].Fio FISH test uses either FDA cleared | | | and/or analyte specific reagent (ASR) probes. This test was developed | | | and its performance characteristics determined by | | | [facility] in [place], [place]. It has not been cleared or | | | approved by the U.S. Food and Drug Administration (FDA). The FDA has | | | determined that such clearance or approval is not necessary. This | | | testis used for clinical purposes and should not be regarded as | | | investigational or for research. This laboratory is regulated under | | | CLIA '88 as qualified to perform high complexity testing. Interphase | | | FISH does not include examination of the entire chromosomal | | | complement. Clinically significant anomalies detectable by routine | | | banded cytogenetic analysis may still be present. Consider reflex | | | bandedcytogenetic analysis.Images that may be included within this | | | report are disability representative of the patient but not all testing in its | | | entirety and should not be used to render a result.The CPT codes | | | provided with our test descriptions are based on AMA guidelines and | | | are for informational purposes only. Correct CPT coding is the sole | | | responsibility of the billing democrat. Please directany questions | | | regarding coding to the payer being billed. Diagnostician: Dwaine Wadsworth | | | Oli DOPathologistDiagnostician: Rony Sterling MT([facility]) | | | MBPathologistDiagnostician: Amrit Horton | | | MDPathologistDiagnostician: Anisa Fuller MDPathologistDiagnostician: | | | Andrea Zepeda MDPathologistElectronically Signed 10/02/2019 | | + + + + +---------+ + + | Performing | Address | City/State/Zipcode | Phone Number | | Organization | | | | + +---------+ + + | [facility] | | | | | [facility] | | | | + +---------+ + + Protime INR (09/23/2019 11:25 AM PDT) + + + + + + | Component | Value | Ref Range | Performed | Pathologist | | | | | At | Signature | + + + + + + | INR | 1.0Comment: REFERENCE | | [facility] | | | | RANGE:0.9 - 1.2 | | LABORATORY | | | | NON-ANTICOAGULATED2.0 | | | | | | - 3.0 ALL OTHER | | | | | | THERAPEUTIC | | | | | | INDICATIONS2.5 - 3.5 | | | | | | MECHANICAL HEART VALVES, | | | | | | RECURRENT OR SYSTEMIC | | | | | | EMBOLISMTesting | | | | | | performed at [facility];[place], [place] | | | | | | [address] | | | | + + + + + + + + | Specimen | + + | Blood | + + + + + + + | Performing | Address | City/State/Zipcode | Phone Number | | Organization | | | | + + + + + | [facility] | [address] | [place] [address] | [phone] | + + + + + CBC with Differential (09/23/2019 11:25 AM PDT) + + + + + + | Component | Value | Ref Range | Performed | Pathologist | | | | | At | Signature | + + + + + + | WBC | 11.50 (H) | 3.80 - 11.00 | [facility] | | | | | K/uL | LABORATORY | | + + + + + + | RBC | 4.81 | 4.20 - 5.70 | [facility] | | | | | M/uL | LABORATORY | | + + + + + + | Hemoglobin | 15.1 | 13.2 - 17.0 | [facility] | | | | | g/dL | LABORATORY | | + + + + + + | Hematocrit | 45.6 | 39.0 - 50.0 % | [facility] | | | | | | LABORATORY | | + + + + + + | MCV | 94.8 | 80.0 - 100.0 fl | [facility] | | | | | | LABORATORY | | + + + + + + | MCH | 31.4 | 27.0 - 34.0 pg | [facility] | | | | | | LABORATORY | | + + + + + + | MCHC | 33.1 | 32.0 - 35.5 | [facility] | | | | | g/dL | LABORATORY | | + + + + + + | RDW-SD | 47.1 | 37 - 53 fl | [facility] | | | | | | LABORATORY | | + + + + + + | Platelet | 225 | 150 - 400 K/uL | [facility] | | | Count | | | LABORATORY | | + + + + + + | MPV | 11.1Comment: NO NORMAL | fl | [facility] | | | | RANGE ESTABLISHED | | LABORATORY | | + + + + + + | Diff Type | AUTOMATED | | [facility] | | | | | | LABORATORY | | + + + + + + | % nRBC | 0.0 | 0 /100WBC | [facility] | | | | | | LABORATORY | | + + + + + + | % | 51.20 | % | [facility] | | | Neutrophils | | | LABORATORY | | + + + + + + | IMMATURE | 0.30 | % | [facility] | | | GRANULOCYTE | | | LABORATORY | | + + + + + + | % | 41.70 | % | [facility] | | | Lymphocytes | | | LABORATORY | | + + + + + + | Monocyte % | 5.70 | % | [facility] | | | | | | LABORATORY | | + + + + + + | Eosinophils | 0.80 | % | [facility] | | | % | | | LABORATORY | | + + + + + + | Basophils % | 0.30 | % | [facility] | | | | | | LABORATORY | | + + + + + + | Neutrophils | 5.88 | 1.90 - 7.40 | [facility] | | | , Absolute | | K/uL | LABORATORY | | + + + + + + | IMMATURE | 0.04Comment: NOTE NEW | 0.00 - 0.07 | [facility] | | | GRANS AB | REFERENCE RANGE | K/uL | LABORATORY | | + + + + + + | Absolute | 4.80 (H) | 1.00 - 3.90 | [facility] | | | Lymphocytes | | K/uL | LABORATORY | | + + + + + + | Absolute | 0.66 | 0.00 - 0.80 | [facility] | | | Monocytes | | K/uL | LABORATORY | | + + + + + + | Eosinophils | 0.09 | 0.00 - 0.50 | [facility] | | | , Absolute | | K/uL | LABORATORY | | + + + + + + | Basophils, | 0.03Comment: Testing | 0.00 - 0.10 | [facility] | | | Absolute | performed at [facility] | [address] | LABORATORY | | | | [address];[place], [place] | | | | | | [address] | | | | + + + + + + + + | Specimen | + + | Blood | + + + + + + + | Performing | Address | City/State/Zipcode | Phone Number | | Organization | | | | + + + + + | [facility] | [address] | [place] [address] | [phone] | + + + + + documented in this encounter Visit Diagnoses + + | Diagnosis | + + | Mass of left lung | + + documented in this encounter Administered Medications + +--------+---------+------+------+------+ | Medication Order | MAR | Action | Dose | Rate | Site | | | Action | Date | | | | + +--------+---------+------+------+------+ + +---+ | fentaNYL (PF) injection 25 mcg | | | 25 mcg, Intravenous, CONDITIONAL | | | PRN, Other, maintenance moderate | | | sedation, titrated every 2 min | | | prn during procedure, Starting | | | 09/23/19 at 1124, Pre-op | | + +---+ | | | + +---+ + +-------+ +--------+---+---+ | fentaNYL (PF) injection | Given | 09/23/19 | 50 mcg | | | | Intravenous, PRN, Starting Wed | | 20 12:35 | | | | | 09/23/19 at 1235 | | PM PDT | | | | + +-------+ +--------+---+---+ + +---+ | | | + +---+ | midazolam (VERSED) 1 mg/mL | | | injection 1-2 mg 1-2 mg, | | | Intravenous, CONDITIONAL PRN, | | | Sedation, Starting Sat09/23/19 at | | | 1124, To be administered by MD | | | during procedure, Pre-op | | + +---+ | | | + +---+ + +-------+ +------+---+---+ | midazolam (VERSED) 1 mg/mL | Given | 09/23/19 | 1 mg | | | | injection Intravenous, PRN, | | 20 12:35 | | | | | Starting Sat09/23/19 at 1235 | | PM PDT | | | | + +-------+ +------+---+---+ + +---+ | | | + +---+ | sodium chloride 0.9% (NS) | | | infusion at 50 mL/hr, | | | Intravenous, CONTINUOUS, Starting | | | 09/23/19 at 1145, OK to use | | | implantable port., Pre-op | | + +---+ | | | + +---+ documented in this encounter
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
--- OUTSIDE RECORDS SUMMARY | ~2019-11-14 | XMS | Encounter Summary ---
Demographics + + + | Address | [address] | | | [place] [address] | + + + | Home Phone | | + + + | Preferred Language | Unknown | + + + | Marital Status | | + + + | Church Affiliation | Unknown | + + + | Race | Unknown | + + + | Ethnic Group | Unknown | + + + Author + + + | Author | [facility] | | | and [place] | + + + | Organization | [facility] | | | and [...] [place] | | | | | [address] | | + + + + + Care Team Providers + +------+ + | Care Radial Drill Press Operator For Plastic Name | Role | Phone | + +------+ + | Raiza Slaughter PA-C | PCP | | + +------+ + Reason for Visit + +--------+ + | Reason | Onset | Comments | | | Date | | + +--------+ + | Diagnostic Order | 09/06/ | | | | 2019 | | + +--------+ + Encounter Details +--------+ + + + + | Date | Type | Department | Care Team | Description | +--------+ + + + + | 09/06/ | Telephone | [facility] | Abigail, | Diagnostic Order | | 2019 | | HEMATOLOGY AND | Jennifer Juarez MD | | | | | ONCOLOGY [address] | | | | | [address] | [place] | | | | | [place] | [address] | | | | | [address] | | | | | | [phone] | | | +--------+ + + + [...] + + documented as of this encounter Miscellaneous Notes Telephone Encounter - Luma Newton, Overlock Hemmer - 09/07/2019 9:28 AM [facility] re-faxed the order for pet scan to [facility] as, they said they did not receive it. They will call patient to schedule. documented in this encounter Plan of Treatment +--------+---------+ + + + | Date | Type | Specialty | Care Team | Description | +--------+---------+ + + + | 01/26/ | Office | Cardiology | Iris Malone, | | | 2019 | Visit | | MD Erasmo ESCOTO | | | | | | [address] | | | | | | [address] | | | | | | | | +--------+---------+ + + + documented as of this encounter Visit Diagnoses Not on filedocumented in this encounter"
--- OUTSIDE RECORDS SUMMARY | ~2019-11-14 | XMS | Encounter Summary ---
Demographics + + + | Address | [address] | | | [place] [address] | + + + | Home Phone | | + + + | Preferred Language | Unknown | + + + | Marital Status | | + + + | Church Affiliation | NRP | + + + | Race | or | + + + | Ethnic Group | Not or | + + + Author + + + | Author | [facility] [facility] | + + + | Organization | [facility] | + + + | Address | Unknown | + + + | Phone | Unavailable | + + + Support + + + + + | Name | Relationship | Address | Phone | + + + + + | Kim Sigo | ECON | [address] | | | | | [place] | | | | | [address] | | + + + + + | Key Escobedo | ECON | Unknown | | + + + + + | Cathleen Escobedo | ECON | Unknown | | + + + + + Care Team Providers + +------+ + | Care Spool Sander Name | Role | Phone | + +------+ + | Anupama Juárez | PCP | | + +------+ + Encounter Details +--------+ + + + + | Date | Type | Department | Care Team | Description | +--------+ + + + + | 09/02/ | Results | Stress | Other, Faculty | | | 2013 | Only | Echocardiography | [phone] | | | | | [address] | | | | | | Loop Mailcode: | | | | | | [id number] Outpatient | | | | | | Clinic Building | | | | | | [place], [place] | | | | | | [address] | | | | | | [phone] | | | +--------+ + + + [...] [address] | | | | | | [place], [place] | | | | | | [address] | | | | | | [phone] | | | | | | | | +--------+ + + + + documented as of this encounter Procedures + +--------+ + + + | Procedure Name | Priori | Date/Time | Associated Diagnosis | Comments | | | ty | | | | + +--------+ + + + | EJECTION FRACTION | Routin | 09/02/2013 | | Results for this | | | e | 8:31 AM | | procedure are in the | | | | PDT | | results section. | + +--------+ + + + documented in this encounter Results EJECTION FRACTION (09/02/2013 8:31 AM PDT) + + + + + + | Component | Value | Ref Range | Performed | Pathologist | | | | | At | Signature | + + + + + + | EJECTION | 50 to 55 | | [facility] | | | FRACTION | | | OF | | | | | | CARDIOLOGY | | + + + + + + | BIPLANE, EF | 35.6 | | [facility] | | | | | | OF | | | | | | CARDIOLOGY | | + + + + + + | EJECTION | 52.5 | % | [facility] | | | FRACTION | | | OF | | | RANGE MEAN | | | CARDIOLOGY | | | VALUE | | | | | + + + + + + + + | Specimen | + + | | + + + + + + + | Performing | Address | City/State/Zipcode | Phone Number | | Organization | | | | + + + + + | [facility] | [address] | [place], [place] | | | CARDIOLOGY | [address] | [address] | | + + + + + documented in this encounter Visit Diagnoses Not on filedocumented in this encounter"
--- OUTSIDE RECORDS SUMMARY | ~2019-11-14 | XMS | Encounter Summary ---
Demographics + + + | Address | [address] | | | [place] [address] | + + + | Home Phone | | + + + | Preferred Language | Unknown | + + + | Marital Status | | + + + | Oriental Orthodox Affiliation | NRP | + + + | Race | or | + + + | Ethnic Group | Not or | + + + Author + + + | Organization | Unknown | + + + | Address | Unknown | + + + | Phone | Unavailable | + + + Support + + + + + | Name | Relationship | Address | Phone | + + + + + | Kim Escobedo | ECON | [address] | | | | | [place] | | | | | [address] | | + + + + + | Key Sigo | ECON | Unknown | | + + + + + | Cathleen Sigo | ECON | Unknown | | + + + + + Care Team Providers + +------+ + | Care Network Operations Lead Name | Role | Phone | + +------+ + | Anupama Juárez | PCP | | + +------+ + Encounter Details +--------+--------+ + + + | Date | Type | Department | Care Team | Description | +--------+--------+ + + + | 06/17/ | Travel | | | | | 2020 | | | | | +--------+--------+ + + + Social History + + [...] [address] | | | | | | [place] | | | | | | [address] | | | | | | [phone] | | | | | | | | +--------+ + + + + documented as of this encounter Visit Diagnoses Not on filedocumented in this encounter"
--- OUTSIDE RECORDS SUMMARY | ~2019-11-14 | XMS | Encounter Summary ---
Demographics + + + | Address | [address] | | | [place] [address] | + + + | Home Phone | | + + + | Preferred Language | Unknown | + + + | Marital Status | | + + + | Jehovah'S Witness Affiliation | NRP | + + + | Race | or | + + + | Ethnic Group | Not or | + + + Author + + + | Author | [facility] | + + + | Organization | [facility] [facility] [facility] | + + + | Address | Unknown | + + + | Phone | Unavailable | + + + Support + + + + + | Name | Relationship | Address | Phone | + + + + + | Kim Sigo | ECON | [address] | | | | | [place] | | | | | [address] | | + + + + + | Key Escobedo | ECON | Unknown | | + + + + + | Cathleen Escobedo | ECON | Unknown | | + + + + + Care Team Providers + +------+ + | Care Ese Teacher Name | Role | Phone | + +------+ + | Anupama Juárez | PCP | | + +------+ + Reason for Referral Diagnostic Testing (Routine) + +--------+ + + + + | Status | Reason | Specialty | Diagnoses / | Referred By | Referred To | | | | | Procedures | Contact | Contact | + +--------+ + + + + | New Request | | Radiology | Diagnoses | Werle, | External | | | | | Primary | BIANCA June | Order | | | | | cancer of | [address] | | | | | | left lower | [address] | | | | | | lobe of lung | [place], [place] | | | | | | (HCC) | [address] | | | | | | Procedures | Phone: | | | | | | CT CHEST WO | [phone] | | | | | | CONTRAST | Fax: | | | | | | | [phone] | | + +--------+ + + + + Encounter Details +--------+ + + + + | Date | Type | Department | Care Team | Description | +--------+ + + + + | 11/10/ | Cook Relief | Cardiothoracic | Slade Cox, MORNING NANNY | Primary cancer of | | 2020 | | Surgery at [facility] | [address] | left lower lobe of | | | | [address] | [place], [place] | lung (HCC) (Primary | | | | Physician's | [address] | Dx) | | | | [place], 2nd floor | [phone] | | | | | [facility] [place] | | | | | | [address] | | | | | | [phone] | | | +--------+ + + + [...] + + documented as of this encounter Functional Status + + + + | Functional Status | Response | Date of Assessment | + + + + | Because of a physical, mental, or emotional | No | 10/29/2019 | | condition, do you have serious difficulty | | | | doing errands alone such as visiting the | | | | doctor? | | | + + + + + + + + | Cognitive Status | Response | Date of Assessment | + + + + | Because of a physical, mental, or emotional | No | 10/29/2019 | | condition, do you have serious difficulty | | | | concentrating, remembering, or making | | | | decisions? (5 years old or older) | | | + + + + documented as of this encounter Plan of Treatment +--------+ + + + + | Date | Type | Specialty | Care Team | Description | +--------+ + + + + | 11/15/ | Telephone-S | Thoracic Surgery | Ronald Barth MD | | | 2020 | cheibnaled | | [address] | | | | | | [address] | | | | | | [place], [place] | | | | | | [address] | | | | | | [phone] | | | | | | | | +--------+ + + + + + +---------+--------+ + + | Name | Type | Priori | Associated Diagnoses | Order Schedule | | | | ty | | | + +---------+--------+ + + | CT CHEST WO CONTRAST | Imaging | Routin | Primary cancer of | Expected: | | | | e | left lower lobe of | 11/11/2019, Expires: | | | | | lung (HCC) | 12/11/2020 | + +---------+--------+ + + documented as of this encounter Visit Diagnoses + + | Diagnosis | + + | 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
--- OUTSIDE RECORDS SUMMARY | ~2019-11-14 | XMS | Encounter Summary ---
Demographics + + + | Address | [address] | | | [place] [address] | + + + | Home Phone | | + + + | Preferred Language | Unknown | + + + | Marital Status | | + + + | Latter Day Affiliation | Unknown | + + + | Race | Unknown | + + + | Ethnic Group | Unknown | + + + Author + + + | Author | [facility] | | | and [place] | + + + | Organization | [facility] | | | and [...] [place] | | | | | [address] | | + + + + + Care Team Providers + +------+ + | Care Insulation Professional Name | Role | Phone | + +------+ + | Raiza Slaughter PA-C | PCP | | + +------+ + Encounter Details +--------+ + + + + | Date | Type | Department | Care Team | Description | +--------+ + + + + | 02/13/ | Orders Only | [facility] | Conversion | | | 2017 | | CONVERSION [address] | Transaction, | | | | | [address] | Provider Unknown | | | | | [place] | [phone] | | | | | [address] | | | | | | [phone] | | | +--------+ + + + [...] [place] | | | | | | [id number] | | | | | | | | +--------+---------+ + + + documented as of this encounter Visit Diagnoses Not on filedocumented in this encounter"
--- OUTSIDE RECORDS SUMMARY | ~2019-11-14 | XMS | Encounter Summary ---
Demographics + + + | Address | [address] | | | [place] [address] | + + + | Home Phone | | + + + | Preferred Language | Unknown | + + + | Marital Status | | + + + | Anglican Affiliation | NRP | + + + | Race | or | + + + | Ethnic Group | Not or | + + + Author + + + | Author | [facility] [employer] [facility] | + + + | Organization | [facility] [employer] [facility] | + + + | Address | Unknown | + + + | Phone | Unavailable | + + + Support + + + + + | Name | Relationship | Address | Phone | + + + + + | Kim Sigo | ECON | [address] | | | | | [place] | | | | | [address] | | + + + + + | Key Escobedo | ECON | Unknown | | + + + + + | Cathleen Escobedo | ECON | Unknown | | + + + + + Care Team Providers + +------+ + | Care School Crossing Guard Name | Role | Phone | + +------+ + | Anupama Juárez | PCP | | + +------+ + Encounter Details +--------+ + + + + | Date | Type | Department | Care Team | Description | +--------+ + + + + | 10/21/ | Anesthesia | Preoperative | Ai Buenrostro, | | | 2020 | Event | [facility] at | TELEVISION NEWS REPORTER [address] | | | | | [facility] | [facility] | | | | | [address] | [place], [place] | | | | | Mail Code: OC8 | [address] | | | | | [facility] | [phone] | | | | | and [place], | | | | | | [address] | | | | | | [place], [place] | | | | | | [address] | | | | | | [phone] | | | +--------+ + + + [...] | +--------+ + + + + | 07/06/ | Telephone-S | Thoracic Surgery | Ronald Barth MD | | | 2020 | cyn | | [address] | | | | | | [address] | | | | | | [place] | | | | | | [address] | | | | | | [phone] | | | | | | | | +--------+ + + + + documented as of this encounter Visit Diagnoses Not on filedocumented in this encounter"
--- OUTSIDE RECORDS SUMMARY | ~2019-11-14 | XMS | Encounter Summary ---
Demographics + + + | Address | [address] | | | [place] [address] | + + + | Home Phone | | + + + | Preferred Language | Unknown | + + + | Marital Status | | + + + | Anglican Affiliation | NRP | + + + | Race | or | + + + | Ethnic Group | Not or | + + + Author + + + | Author | [facility] | + + + | Organization | [email or web address] [facility] | + + + | Address | Unknown | + + + | Phone | Unavailable | + + + Support + + + + + | Name | Relationship | Address | Phone | + + + + + | Kim Sigo | ECON | [address] | | | | | [place] | | | | | [address] | | + + + + + | Key Escobedo | ECON | Unknown | | + + + + + | Cathleen Escobedo | ECON | Unknown | | + + + + + Care Team Providers + +------+ + | Care Cruise Counselor Name | Role | Phone | + +------+ + | Anupama Juárez | PCP | | + +------+ + Encounter Details +--------+ + + + + | Date | Type | Department | Care Team | Description | +--------+ + + + + | 05/17/ | Wool Hat Finisher | Cardiothoracic | Becky Jama, | Aortic aneurysm | | 2014 | | Surgery at [facility] | PA-C [address] | ([facility]) (Primary Dx) | | | | [address] | [facility] [address] | | | | | Physician's | [place], [place] | | | | | [address], 2nd floor | [address] | | | | | [place], [place] | [phone] | | | | | [address] | | | | | | [phone] | | | +--------+ + + + [...] | 2019 | cyn | | [address] [facility] | | | | | | [address] | | | | | | [place], [place] | | | | | | [address] | | | | | | [phone] | | | | | | | | +--------+ + + + + documented as of this encounter Visit Diagnoses + + | Diagnosis | + + | Aortic aneurysm (HCC) - Primary Aortic aneurysm of unspecified site without mention | | of rupture | + + documented in this encounter"
--- OUTSIDE RECORDS SUMMARY | ~2019-11-14 | XMS | Encounter Summary ---
Demographics + + + | Address | [address] | | | [place] [address] | + + + | Home Phone | | + + + | Preferred Language | Unknown | + + + | Marital Status | | + + + | Congregational Affiliation | NRP | + + + | Race | or | + + + | Ethnic Group | Not or | + + + Author + + + | Author | [facility] | + + + | Organization | [facility] [employer] [facility] | + + + | Address | Unknown | + + + | Phone | Unavailable | + + + Support + + + + + | Name | Relationship | Address | Phone | + + + + + | Kim Sigo | ECON | [address] | | | | | [place] | | | | | [address] | | + + + + + | Key Escobedo | ECON | Unknown | | + + + + + | Cathleen Escobedo | ECON | Unknown | | + + + + + Care Team Providers + +------+ + | Care Sales Consultant Name | Role | Phone | + +------+ + | Anupama Juárez | PCP | | + +------+ + Encounter Details +--------+ + + + + | Date | Type | Department | Care Team | Description | +--------+ + + + + | 10/12/ | Documentati | Cardiothoracic | Ronald Barth MD | | | 2020 | on | Surgery at [facility] [address] | [address] | | | | | [address] | [address] | | | | | Physician's | [place], [place] | | | | | [place], 2nd floor | [address] | | | | | [place], [place] | [phone] | | | | | [address] | | | | | | [phone] | | | +--------+ + + + [...] | 2019 | cyn | | [address] [facility] | | | | | | [address] | | | | | | [place], [place] | | | | | | [address] | | | | | | [phone] | | | | | | | | +--------+ + + + + documented as of this encounter Visit Diagnoses Not on filedocumented in this encounter"
--- OUTSIDE RECORDS SUMMARY | ~2019-11-14 | XMS | Encounter Summary ---
Demographics + + + | Address | [address] | | | [place] [address] | + + + | Home Phone | | + + + | Preferred Language | Unknown | + + + | Marital Status | | + + + | Tenriism Affiliation | NRP | + + + | Race | or | + + + | Ethnic Group | Not or | + + + Author + + + | Author | [facility] | + + + | Organization | [facility] [employer] [facility] | + + + | Address | Unknown | + + + | Phone | Unavailable | + + + Support + + + + + | Name | Relationship | Address | Phone | + + + + + | Kim Sigo | ECON | [address] | | | | | [place] | | | | | [address] | | + + + + + | Key Escobedo | ECON | Unknown | | + + + + + | Cathleen Escobedo | ECON | Unknown | | + + + + + Care Team Providers + +------+ + | Care Maternal Child Nurse Name | Role | Phone | + [...] [facility] | | | | | [facility] | [place], | | | | | Hospital Admitting | [place] [address] | | | | | Desk Located on the | [phone] | | | | | 9th floor | | | | | | [facility] [place] | [place], | | | | | [address] | [address] | | | | | | [address] | | | | | | [place], [place] | | | | | | [address] | | | | | | [phone] | | | | | | | | +--------+ + + + + Anesthesia Record + + + + + | Procedure Name | Responsible | Anesthesia Start | Anesthesia Stop Time | | | Anesthesiologist | Time | | + + + + + | LEFT THORACOSCOPY, | Garrett Adams MD | 10/28/19 0737 | 10/28/19 6618 | | THORACOTOMY, LEFT | | | [...] 10/29/19; 0729 | Brooklyn Lopez RN | Yudekla Becerra RN | | IV | | [...] 10/31/19; | Divya Kebede RN | Katarina Franklni RN | | Ashleyet | 1230; Per order, Per protocol | | | | er | | | | +--------+ + + + | ETT | 10/28/19; 1434 (created via | 10/28/19 1434 by | 10/28/19 1846 by | | | procedure documentation); Mariano | Mariano Kent MD | Nayla Herron, | | | MD Yoli; Endotracheal Tube; | | DOUBLE END TENONER OPERATOR | | | 8.5; Oral; 10/28/19; 1845 | | | +--------+ + + + | ETT | 10/28/19; 1510 (created via | 10/28/19 151 by | 10/28/191845 by | | | procedure documentation); Mariano | Mariano Kent MD | Nayla Herron, | | | MD Yoli; Double Lumen; 39; | | DOUBLE END TENONER OPERATOR | | | Oral; Cuffed; 10/28/19; 1845 [...] | | 2019 | cyn | | [address] [facility] | | | | | | [address] | | | | | | [place], [place] | | | | | | [address] | | | | | | [phone] | | | | | | | [...] used: | | | Ultrasound guided and [place] technique Ultrasound Image: Not | | | [...]
--- OUTSIDE RECORDS SUMMARY | ~2019-11-14 | XMS | Encounter Summary ---
Demographics + + + | Address | [address] | | | [place] [address] | + + + | Home Phone | | + + + | Preferred Language | Unknown | + + + | Marital Status | | + + + | Synagogue Affiliation | NRP | + + + | Race | or | + + + | Ethnic Group | Not or | + + + Author + + + | Author | [facility] | + + + | Organization | [facility] [employer] [facility] | + + + | Address | Unknown | + + + | Phone | Unavailable | + + + Support + + + + + | Name | Relationship | Address | Phone | + + + + + | Kim Sigo | ECON | [address] | | | | | [place] | | | | | [address] | | + + + + + | Key Escobedo | ECON | Unknown | | + + + + + | Cathleen Escobedo | ECON | Unknown | | + + + + + Care Team Providers + +------+ + | Care Panelbeater Name | Role | Phone | + +------+ + | Anupama Juárez | PCP | | + +------+ + Reason for Visit PROC - Inpatient Surgery (Routine) +--------+--------+ + + + + | Status | Reason | Specialty | Diagnoses / | Referred By | Referred To | | | | | Procedures | Contact | Contact | +--------+--------+ + + + + | Closed | | Cardiac | Diagnoses | [place], | [place], | | | | Surgery | Aortic | MD Andrea | MD Destin | | | | | aneurysm of | [place] | [address] | | | | | unspecified | PACIFIC | [address], | | | | | site without | HOSPITAL | [place] [address] | | | | | mention of | EMERGENCY | Phone: | | | | | rupture | [address] | [phone] | | | | | Procedures | [address] | Fax: | | | | | [facility] | [place], [place] | [phone] | | | | | [address] | [address] | | | | | | [facility] | Phone: | | | | | | [address] | [phone] | | | | | | ROOT | Fax: | | | | | | [facility] | [phone] | | | | | | [facility] | | | | | | | [address] | | | +--------+--------+ + + + + Encounter Details +--------+---------+ + + + | Date | Type | Department | Care Team | Description | +--------+---------+ + + + | 10/16/ | Office | Cardiothoracic | Destin Scott, | Thoracic aortic | | 2013 | Visit | Surgery at The | [address] | aneurysm (HCC) | | | | [place] [address] | [place] [address] | (Primary Dx) | | | | [address] | [phone] | | | | | [place], [place] | | | | | | [address] | | | | | | [phone] | | | +--------+---------+ + + + [...] + + + | Blood Pressure | 160/86 | 10/16/2013 9:40 AM | | | | | PDT | | + + + + + | Pulse | 76 | 10/16/2013 9:40 AM | | | | | PDT | | + + + + + | Temperature | - | - | | + + + + + | Respiratory Rate | 14 | 10/16/2013 9:40 AM | | | | | PDT | | + + + + + | Oxygen Saturation | 97% | 10/16/2013 9:40 AM | | | | | PDT | | + + + + + | Inhaled Oxygen | - | - | | | Concentration | | | | + + + + + | Weight | 90.7 kg (200 lb) | 10/16/2013 9:40 AM | | | | | PDT | | + + + + + | Height | - | - | | + + + + + | Body Mass Index | 32.3 | 09/04/2013 5:41 PM | | | | | PDT | | + + + + + documented in this encounter Progress Notes Destin Scott MD - 10/16/2013 9:41 AM [facility] Date of Service: 10/16/2013 Referring Providers: Andrea Chou MD Patient Care Team: Anupama Juárez as PCP - General (NURSE PRACTITIONER FAMILY) Reason for Visit: Postoperative check Subjective: Mr. Richard Escobedo is well known to our service. Mr Escobedo is a 58 yo male was [facility] for treatment of newly diagnosed large ascending a ortic aneurysm. He was admitted to the ICU for tight blood pressure control. He was evaluate d by cardiac surgery and was then taken to the OR on 09/04. He did well in surgery and was tr ansferred back to the ICU to be weaned from the ventilator. He was stable for transfer out o f the ICU on POD#2. He developed some post-operative delirium and agitation which has slowly cleared throughout his hospital stay. He continued to recover without complication and is n ow stable for discharge home. Today is clinic he feels well and rates his sternal pain as 3, mostly, when coughing. He h as some orthostatic hypotension right when he gets up but this is not bothering him too much . Walking around without difficulty. The patient's current medications include: acetaminophen 325 mg oral tablet, Take 2 tablets by mouth every six hours as needed for mod erate pain. aspirin EC 81 mg oral tablet,delayed release (DR/EC), Take 81 mg by mouth once daily. hydrochlorothiazide 25 mg oral tablet, Take 25 mg by mouth once daily. HYDROmorphone 2 mg oral tablet, Take 1 to 2 tablets by mouth every six hours as needed for moderate pain or severe pain. metoprolol tartrate 100 mg oral tablet, Take 1 tablet by mouth two times daily. multivitamin-minerals oral tablet, Take 1 tablet by mouth once daily. omeprazole 40 mg oral capsule,delayed release(DR/EC), Take 1 capsule by mouth once daily. senna-docusate 8.6-50 mg oral tablet, Take 1 tablet by mouth twice daily as needed for cons tipation. simvastatin 20 mg oral tablet, Take 20 mg by mouth once daily in the evening. telmisartan (MICARDIS) 40 mg oral tablet, Take 40 mg by mouth once daily in the evening. Objective: Vital Signs: BP 160/86 | Pulse 76 | RR 14 | Wt 90.719 kg (200 lb) | SpO2 97% | BMI 32.3 kg/ (m^2) General: healthy, alert and cooperative. Chest: Percussion normal. Good diaphragmatic excursion. Lungs clear to auscultation bilate rally. Chest Incision: Sternum stable with good wound healing. Cardiovascular: PMI normal. No lifts, heaves, or thrills. RRR. Heart sounds normal. No mu rmurs, clicks or gallops. Abdominal aorta pulsation normal. Carotid, Femoral and pedal puls es 4+ bilaterally. No arterial bruits. No peripheral edema. Extremities: Extremities normal. No deformities, edema, or skin discoloration. Peripheral pulses 2+ equal with peripheral filling less than 2 seconds. Assessment/Plan: In summary, Mr. Escobedo is doing well after reconstruction of his ascending aorta. Mr. Escobedo w ill continue to increase his activity. I have advised him to not drive an automobile until it has been at least 1 month since his operation. He will continue to observe sternal prec autions for 2 months postoperatively. 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 His BP is up a little today (146/80) on recheck but he states it is lower at home. I will have him work with his PCP at [facility]. We will get a CT scan in 6 months to follow his aorta and go from there. I have asked Mr. Escobedo to schedule a followup appointment with his primary care provider, EDD Coffey and Dr. Chou within the next month. I I would be happy to see him kendellmariaelena eason follow his aorta but he might want to get this done closer to home. If he develops any problems related to his surgery I would be happy to see him as well.. Electronically signed Destin Scott MD, FACS, FACC Professor, Department of Surgery Head, Adult Cardiac Surgery Section Co-Director, Multidisciplinary Heart Valve Clinic [facility] | [email or web address] documented in this en counter Plan of Treatment +--------+ + + + + | Date | Type | Specialty | Care Team | Description | +--------+ + + + + | 11/15/ | Telephone-S | Thoracic Surgery | Ronald Barth MD | | | 2019 | cyn | | [address] [facility] | | | | | | [address] | | | | | | [place], [place] | | | | | | [address] | | | | | | [phone] | | | | | | | | +--------+ + + + + documented as of this encounter Visit Diagnoses + + | Diagnosis | + + | Thoracic aortic aneurysm (HCC) - Primary Thoracic aneurysm without mention of rupture | + + documented in this encounter"
--- OUTSIDE RECORDS SUMMARY | ~2019-11-14 | XMS | Encounter Summary ---
Demographics + + + | Address | [address] | | | [place] [address] | + + + | Home Phone | | + + + | Preferred Language | Unknown | + + + | Marital Status | | + + + | Gnosticism Affiliation | NRP | + + + | Race | or | + + + | Ethnic Group | Not or | + + + Author + + + | Author | [facility] | + + + | Organization | [facility] [employer] [facility] | + + + | Address | Unknown | + + + | Phone | Unavailable | + + + Support + + + + + | Name | Relationship | Address | Phone | + + + + + | Kim Sigo | ECON | [address] | | | | | [place] | | | | | [address] | | + + + + + | Key Escobedo | ECON | Unknown | | + + + + + | Cathleen Escobedo | ECON | Unknown | | + + + + + Care Team Providers + +------+ + | Care Professor Of Nursing Name | Role | Phone | + +------+ + | Anupama Juárez | PCP | | + +------+ + Encounter Details +--------+ + + + + | Date | Type | Department | Care Team | Description | +--------+ + + + + | 09/09/ | Pharmacy | Specialty Pharmacy | | | | 2013 | Visit | Services [address] | | | [address] | | | | | | [place], [place] | | | | | | [address] | | | | | | [phone] | | | +--------+ + + + [...] | 2020 | cyn | | [address] | | | | | | [address] | | | | | | [place], [place] | | | | | | [address] | | | | | | [phone] | | | | | | | | +--------+ + + + + documented as of this encounter Visit Diagnoses Not on filedocumented in this encounter"
--- OUTSIDE RECORDS SUMMARY | ~2019-11-14 | XMS | Encounter Summary ---
Demographics + + + | Address | [address] | | | [place] [address] | + + + | Home Phone | | + + + | Preferred Language | Unknown | + + + | Marital Status | | + + + | Church Affiliation | Unknown | + + + | Race | Unknown | + + + | Ethnic Group | Unknown | + + + Author + + + | Author | [facility] | | | and [place] | + + + | Organization | [facility] | | [...] [place] | | | | | [address] | | + + + + + Care Team Providers + +------+ + | Care Show Worker Name | Role | Phone | + +------+ + | Raiza Slaughter PA-C | PCP | | + +------+ + Reason for Visit +--------+--------+ + | Reason | Onset | Comments | | | Date | | +--------+--------+ + | Other | 07/20/ | | | | 2020 | | +--------+--------+ + Encounter Details +--------+ + + + + | Date | Type | Department | Care Team | Description | +--------+ + + + + | 07/20/ | Telephone | [facility] | Faisal Aninicanor, | Other | | 2020 | | CARDIOLOGY [place] | [address] | | | | | [address] | [place], [place] | | | | | [place], [place] | [address] | | | | | [address] | | | | | | [phone] | | | +--------+ + + + [...] this encounter Miscellaneous Notes Telephone Encounter - Jose Juan Faith RN - 07/21/2019 8:54 AM PDTI called the patient o n behalf of Dr. Malone. Patient is willing to now see oncology. ----- Message from Iris Malone MD sent at 07/20/2019 2:06 PM PDT ----- Was referred to Oncology. Can he establish care with them. documented in this encounter Plan of Treatment +--------+---------+ + + + | Date | Type | Specialty | Care Team | Description | +--------+---------+ + + + | 01/26/ | Office | Cardiology | Iris Malone, | | 2019 | Visit | | MD Erasmo ESCOTO | | | | | | [place] | | | | | | [id number] | | | | | | | | +--------+---------+ + + + documented as of this encounter Visit Diagnoses Not on filedocumented in this encounter"
--- OUTSIDE RECORDS SUMMARY | ~2019-11-14 | XMS | Encounter Summary ---
Demographics + + + | Address | [address] | | | [place] [address] | + + + | Home Phone | | + + + | Preferred Language | Unknown | + + + | Marital Status | | + + + | Roman Catholic Affiliation | NRP | + + + | Race | or | + + + | Ethnic Group | Not or | + + + Author + + + | Author | [facility] | + + + | Organization | [facility] | + + + | Address | Unknown | + + + | Phone | Unavailable | + + + Support + + + + + | Name | Relationship | Address | Phone | + + + + + | Kim Sigo | ECON | [address] | | | | | [place] | | | | | [id number] | | + + + + + | Key Escobedo | ECON | Unknown | | + + + + + | Cathleen Escobedo | ECON | Unknown | | + + + + + Care Team Providers + +------+ + | Care Analog Ic Design Engineer Name | Role | Phone | + [...] + + + + | 10/27/ | Hospital | [facility] [address] | Ronald Barth MD | | | 2020 - | Encounter | [address] [email or web address] | [address] | | | | | [facility] | [address] | | | 10/31/ | | [place] | [place] | | | 2019 | | [address] | [phone] | | | | | [phone] | [phone] | | | | | | | [...] + + + | Blood Pressure | 148/76 | 11/01/2019 9:00 AM | | | | | PDT | | + + + + + | Pulse | 90 | 11/01/2019 9:00 AM | | | | | PDT | | + + + + + | Temperature | 36.8 C (98.2 F) | 11/01/2019 3:47 AM | | | | | PDT | | + + + + + | Respiratory Rate | 18 | 11/01/2019 9:00 AM | | | | | PDT | | + + + + + | Oxygen Saturation | 96% | 11/01/2019 9:00 AM | | | | | PDT | | + + + + + | Inhaled Oxygen | - | - | | | Concentration | | | | + + + + + | Weight | 91.6 kg (201 lb 15.1 | 10/28/2019 10:10 PM | | | | oz) | PDT | | + + + + + | Height | 167.6 cm (5' 6") | 10/28/2019 10:00 AM | | | | | PDT | | + + + + + | Body Mass Index | 32.59 | 10/28/2019 10:00 AM | | | | | PDT | | + + + + + documented in this encounter Functional Status + + + [...] + + documented as of this encounter Discharge Summaries Jammie Melendez MD - 10/31/2019 10:54 AM PDT Thoracic Surgery Discharge Summary Patient Name: MARTITA ESCOBEDO III Patient Discharge Attending: Ronald Barth MD Summary Author: Rody Weintsein PA-C Date of admission: 10/28/2019 Date of discharge: 11/01/2019 Diagnoses Principal Final Diagnosis: 1. Adenocarcinoma of the left lower lobe lung Additional Diagnoses: 2. Post operative pain 3. Hypertension 4. Hyperlipidemia Procedures 1. 10/27 Left thoracoscopy to left muscle sparing thoracotomy, lysis of adhesions, superior segmentectomy, mediastinal lymph node dissection 2. Thoracic epidural Hospital course: Martita Escobedo III is a 64 year old man with a history of HTN, HLD, former s moker who was referred to our service for evaluation and treatment of biopsy proven adenocar cinoma of the left lower lobe lung. The patient was evaluated, deemed an appropriate kirill te for surgery, and plans were made for the patient to undergo the above-listed procedure. O n the day of the patient's planned procedure, the patient was taken to the operating theater and underwent the above-listed procedure. During the procedure, no complications were noted . At the end of the procedure, appropriate chest drains were placed, the patient was extubat ed, and transferred to the post-anesthesia care unit. Once recovered, the patient was transf erred to the post-surgical [place] where he remained for the rest of the hospitalization. The p atient had no post-operative events. Prior to discharge, the patient had satisfactory pain c ontrol with oral pain medications only, was ambulating without difficulty, and was toleratin g adequate PO intake without nausea, vomiting, or constipation. The patient was discharged t o home on 11/01/2019 in satisfactory condition. Discharge Medications: Martita Escobedo III Home Medication Instructions EVA:[id number] Printed on:11/01/19 0822 Medication Information acetaminophen (TYLENOL EXTRA STRENGTH) 500 mg oral tablet Take 2 tablets by mouth every eight hours. Indications: pain aspirin EC 81 mg oral tablet,delayed release [...] daily. senna-docusate 8.6-50 mg oral tablet Take 1-2 tablets by mouth two times daily. Indications: constipation simvastatin 20 mg oral tablet Take 20 mg by mouth once daily in the evening. tiZANidine 4 mg oral tablet Take 4 mg by mouth once daily at bedtime. Discharge Diet: Discharge Activity: As tolerated; no lifting greater than 10 pounds for six weeks from the time of surgery and no driving or operating heavy machinery while taking narcotic pain medic ations. Discharge Instructions: MARTITA ESCOBEDO III was advised to contact the Thoracic Surgery Clinic or call if the patient experiences fevers greater than 101.5 F, chest pain, chest pre ssure, new or worse shortness of breath, new or worse difficulty breathing, or new or worse incisional redness, tenderness, swelling, drainage, or inflammation. Wound care: The patient was advised to remove all dressings one day after the last chest tu be was removed and do not replace unless additional drainage continues. Also, the patient is advised to shower beginning no earlier than two days after the last chest tube was removed. Showers should include a mild soap and the wound sites should be pat-dried only. No salves, lotions, or oils should be applied to the wound site. The patient was advised to avoid imme rsion of the wounds in any water for at least four weeks after the time of the patient's sandhya epifanio. Discharge exam: Vital signs at the time of discharge: BP 151/82 (BP Location: Left upper arm, Patient Posit ion: Sitting;Lying on back) | Pulse 92 | Temp 36.8 C (98.2 F) (Oral) | Resp 18 | Ht 1.676 m (5' 6") | Wt 91.6 kg (201 lb 15.1 oz) | SpO2 96% | BMI 32.59 kg/m | BSA 2.07 m Gen: NAD Neuro: AOX3; following commands HEENT: Normocephalic; atraumatic; Nares patent; MMM Neck: Supple, non-tender; no JVD or tracheal deviation Lungs: CTA, incision c/d/i CV: RRR, S1 S2; no S3 or S4; no MRGB Abd: S/NT/ND; + flatus; + BM in last three days Ext: MAEW; no C/C/E; all extremities warm with +2 distal pulses Wound site: C/D/I; no evidence of separation, dehiscence, or infection Follow-up appointment(s): Post operative follow up with thoracic surgery in 2 weeks - likel y telephone visit Smoking cessation counseling: NA - former smoker Pathology report: final pathology pending at time of discharge Copies of this summary should be sent to: [facility]; No Referring Provider Per Nano ent documented in this enc ounter Discharge Instructions Instructions Rody Weinstein PA-C - 10/31/2019 10:53 AM PDTThoracic Surgery Post-operative Instructions Thoracic Surgery Office: Contact the Thoracic Surgery Office (or call if indicated) if you experience fevers g reater than 101.5 F, chest pain, chest pressure, new or worse shortness of breath, new or wo rse difficulty breathing, or new or worse incisional redness, tenderness, swelling, drainage , or inflammation. - Activity: no lifting greater than 10 pound for 6 weeks after surgery. After 6 weeks, you may increase your activity without restriction. No driving or operating heavy machinery whil e taking narcotic pain medications. - Showering: continue to shower with gentle soap and water. Pat wounds dry. Leave incisions open to air and only place a loose gauze dressing if there is ongoing drainage. Do not subm erge/soak wounds for 4 weeks after surgery. - Pain: it is part of your expected recovery to still have pain for several weeks after sandhya epifanio as your tissues and nerves begin to heal. This will gradually improve with time. We rec ommend trying Tylenol, ice, heat, and gentle activity to help with your post-operative pain management. Continue to taper off your narcotic pain medications, as these can be habit form ing. - Constipation: you may experience constipation after surgery, particularly if taking narco tic pain medications. Start by increasing your fluids, fiber, and walking. If these are not effective, you can add in Senna/Docusate and/or Miralax. If these are ineffective, try Milk of Magnesia. If you continue to experience constipation, it may be useful to try a supposito ry or enema. All of these options are available over the counter. Follow the recommended dos ing on the packaging. Should you continue to experience constipation, please contact our off ice to discuss further interventions. - Returning to work: the timing of returning to work is very individual based on your recov ihsan from surgery and your job duties. The majority of patients are ready to return to work 4 -6 weeks after surgery. - Wound care: Remove all dressings two days after the last chest tube was removed and do no t replace unless additional drainage continues. Shower beginning no earlier than two days af ter the last chest tube was removed. Showers should include a mild soap and the wound sites should be pat-dried only. No salves, lotions, or oils should be applied to the wound site. A void immersion of the wounds in any water for at least four weeks after the time of surgery. Please send a picture of your wound as part of your post-operative visit either via [employer]) or to the email address [email or web address] with the subject "secure: wound check" with an attached photograph of your wound. You will need to remove your chest tube mackey ture (the black suture that remains in your side) at home. Please do so 2 weeks after disch arge from the hospital. Start by washing the area gently with soap and water, and pat dry. T hen, the suture can be removed by pulling up on the knot and cutting on one side of the knot only. Continue to hold onto the knot and pull the entire stitch out in one piece. documented in this encounter Medications at Time of Discharge + + + +---------+ + + | Medication | Sig | Dispensed | Refills | Start | End Date | | | | | | Date | | + + + +---------+ + + | acetaminophen | Take 2 tablets by | | 0 | 11/01/19 | | | (TYLENOL EXTRA | mouth every eight | | | 20 | | | STRENGTH) 500 mg | hours. Indications: | | | | | | oral | pain | | | | | | tabletIndications: | | | | | | | pain | | | | | | + + + +---------+ + + | aspirin EC 81 mg | Take 81 mg by mouth | | 0 | | | | oral tablet,delayed | once daily. | | | | | | release (DR/EC) | | | | | | + + + +---------+ + + | | Take 25 mg by mouth | | 0 | | | | hydrochlorothiazide | once daily. | | | | | | 25 mg oral tablet | | | | | | + + + +---------+ + + | irbesartan 150 mg | Take 1 tablet by | | 0 | 06/25/19 | | | oral tablet | mouth once daily. | | | 15 | | + + + +---------+ + + | metoprolol | Take 1 tablet by | 60 | 3 | 09/10/19 | | | tartrate 100 mg oral | mouth two times | tablet | | 14 | | | tablet | daily. | | | | | + + + +---------+ + + | | Take 1 tablet by | | 0 | | | | multivitamin-mineral | mouth once daily. | | | | | | s oral tablet | | | | | | + + + +---------+ + + | senna-docusate | Take 1-2 tablets by | | 0 | 11/01/19 | | | 8.6-50 mg oral | mouth two times | | | 20 | | | tabletIndications: | daily. Indications: | | | | | | constipation | constipation | | | | | + + + +---------+ + + | simvastatin 20 mg | Take 20 mg by mouth | | 0 | | | | oral tablet | once daily in the | | | | | | | evening. | | | | | + + + +---------+ + + | tiZANidine 4 mg | Take 4 mg by mouth | | 0 | | | | oral tablet | once daily at | | | | | | | bedtime. | | | | | + + + +---------+ + + documented as of this encounter Progress Notes Dean Guevara MD - 10/31/2019 4:00 PM PDTEpidural catheter removed today at 03:50 pm. T ip visualized intact. No paresthesia or pain with removal. It has been greater than 12 hours since his last dose of enoxaparin, and he does not take blood thinning medications at home, and he is being discharged now. His pain has been well controlled with oral medications, an d he notes that he is ready for the catheter to come out. Dean Guevara MD [facility] [email or web address] [place] [id number] ean Guevara MD - 10/31/2019 1:22 PM PDT INPATIENT ADULT PAIN SERVICE NEURAXIAL BLOCK PROGRESS NOTE 10/31/2019 Author: Dean Guevara MD Pain Service Attending Physician: Jon Lozano MD Epidural day # 3. POD# 3. Status post: Left thoracoscopy, extensive lysis of adhesions, left muscle-sparin g thoracotomy, further lysis of adhesions, superior segmentectomy, mediastinal lymph node di ssections Interval events since last APS visit: - No acute events - last chest tube out His pain score at rest is 5/10. With activity, his pain score is 6/10. Specific activitie s that exacerbate Mr. Escobedo's pain include moving around his bed. Mr. Escobedo is satisfied with current level of pain. History of chronic or preoperative pain: Neck pain Prior to hospitalization: No significant chronic use of opioids at home. Tizanidine QHS ROS/Side Effects: General: negative. Nausea/Vomiting: none Pruritus: none Numbness/Weakness: none Low BP: none Dizziness: none Sedation: none Activity level: Ambulatory Diet: Reg Diet Medications: Current Facility-Administered Medications Medication Dose Route Frequency Last Rate acetaminophen (TYLENOL) tablet 650 mg 650 mg oral Q4H WA aspirin EC tablet 81 mg 81 mg oral DAILY enoxaparin (LOVENOX) injection 40 mg 40 mg subcutaneous QPM hydroCHLOROthiazide (HYDRODIURIL) tablet 25 mg 25 mg oral DAILY metoprolol tartrate (LOPRESSOR) tablet 100 mg 100 mg oral BID multivitamin-minerals 1 tablet 1 tablet oral DAILY senna-docusate (SENOKOT S) 8.6-50 mg 1 tablet 1 tablet oral BID simvastatin (ZOCOR) tablet 20 mg 20 mg oral QPM Current Facility-Administered Medications Medication Dose Route Frequency Last Rate bisacodyL (DULCOLAX) suppository 10 mg 10 mg rectal DAILY PRN HYDROmorphone (DILAUDID) injection 0.2-0.5 mg 0.2-0.5 mg intravenous Q6H PRN HYDROmorphone (DILAUDID) tablet 2-4 mg 2-4 mg oral Q3H PRN melatonin tablet 3 mg 3 mg oral HS PRN naloxone (NARCAN) 1,000 mcg in sodium chloride (NS) 0.9 % 250 mL (4 mcg/mL) IV infusion 0.25 mcg/kg/hr (Dosing Weight) intravenous PRN naloxone (NARCAN) injection intravenous PRN ondansetron (ZOFRAN) injection 4 mg 4 mg intravenous Q12H PRN ondansetron ODT (ZOFRAN ODT) tablet 8 mg 8 mg oral Q12H PRN polyethylene glycol (MIRALAX) packet 34 g 34 g oral TID PRN prochlorperazine (COMPAZINE) injection 5-10 mg 5-10 mg intravenous Q6H PRN prochlorperazine (COMPAZINE) tablet 5-10 mg 5-10 mg oral Q6H PRN Current Facility-Administered Medications Medication Dose Route Frequency Last Rate bupivacaine 0.05 %-HYDROmorphone 10 mcg/mL epidural infusion epidural CONTINUOUS Stop ped (10/31/19 1109) naloxone (NARCAN) 1,000 mcg in sodium chloride (NS) 0.9 % 250 mL (4 mcg/mL) IV infusion 0.25 mcg/kg/hr (Dosing Weight) intravenous PRN Type: Epidural Rate: 0 mL/hour Anticoagulants: Enoxaparin 40mg subcutaneous daily, last dose given yesterday at 2101 hrs. Lab Results Component Value Date INRPT 1.00 10/28/2019 PLT 154 10/31/2019 APTT 62.1 (H) 09/04/2013 Opioids: hydromorphone 2-4 mg Q4h Other analgesic: APAP 650 mg q4h while awake Other psychoactive medications: Melatonin 3 mg qhs Physical Exam: Last Vitals:BP 151/82 (BP Location: Left upper arm, Patient Position: Sitting;Lying on back ) | Pulse 92 | Temp 36.8 C (98.2 F) (Oral) | Resp 18 | Ht 1.676 m (5' 6") | Wt 91.6 kg (201 lb 15.1 oz) | SpO2 96% | BMI 32.59 kg/m | BSA 2.07 m 24 hour Vitals min/max : Systolic (24hrs), Av , Min:124 , Max:151 Diastolic (24hrs), Av, Min:60, Max:82 General Appearance and Neurological Examination: Mental Status: Alert Orientation: Oriented Sensory Level: deferred Motor: bilateral lower extremity(ies) -- No block: full flexion and extension of hip, knee and foot Neuraxial Catheter: Location: T6-T9;depth at skin 9 cm Clinically significant migration since placement? No Dressing: Needed support and Redressed Exit Site: Clean Insertion site exposed? No Assessment: Mr. Escobedo rates his pain relief as good. My personal assessment is concordant with this evaluation Lennon status: Epidural: at thoracic level; If Lennon is in place, it may be removed if deem ed appropriate by primary care team Diagnosis: 1. Acute post operative chest tube 2. Chronic neck and shoulder pain My treatment plan is: - transition to PO, and pull epidural this afternoon. - Continue scheduled APAP - Consider ibuprofen if okay with surgical team - Once transitioning, patient prefers hydromorphone over oxycodone for oral agents Dean Guevara MD [facility] [email or web address] [place] [phone] Associated attestation - Jon Lozano MD - 11/02/2019 5:18 PM PDTI saw and evaluated rogers Escobedo III with trainee: Dr. Guevara . I have reviewed the trainee's note and I a gree with the plan of care as documented. Jon Lozano MD Adult Acute Pain Service [facility] Pager#: [phone] Email: [email or web address] Rody Weinstein PA-C - 10/31/2019 10:07 AM PDT Thoracic Surgery Brief Inpatient Progress Note Patient name: MARTITA ESCOBEDO III Attending: Ronald Barth MD Procedure: 10/28/2019 L VATS converted to muscle sparing thoracotomy, extensive CARMEN, Superior segmentectomy with MLNDx 24 hour events: NAEON Pt reports difficulty sleeping Pain controlled with epidural 24 hour vitals: Last 24 hour min/max Temp: 36.8 C (98.2 F) Temp Min: 36.4 C (97.5 F) Max: 37.7 C (99.9 F) Pulse: 92 Pulse Min: 65 Max: 94 Resp: 18 Resp Min: 18 Max: 20 BP: 151/82 BP Min: 124/61 Max: 151/82 SpO2: 96 % SpO2 Min: 94 % Max: 97 % Body mass index is 32.59 kg/m. Chest tube output: L CT 170cc, ss output, WS, -AL Brief Exam: NAD AOX3 Non labored respiration on RA RRR S/NT/ND MAEW L thoracotomy incision with surrounding hematoma and warmth inferiorly CXR: Assessment/Plan: 64 yo M s/ the above operation doing well on [place]. Chest tube to water sea l. - Post-op pain: Transition epidural to PO pain mgmt per APS - Chest tube management: L CT removed this AM, obtain post pull CXR - CAD- home 81mg ASA, home metoprolol with hold parameters - HTN - resume home hctz today, continue to hold irbesartan - HLD- on home statin - Urinary retention- lennon to be removed once epidural discontinued, monitor for void - Prophylaxis: Lovenox prophy - FEN: Electrlyte replacement prn K>4, Mg >2, am labs, regular diet, prn bowel regimen - Dispo: [place] status, discharge later today vs more likely tomorrow - Discussed with Dr. Ronald Barth MDElectronically signed by Rody Weinstein PA-C at 10/12 10:28 AM Rubina Argueta MD - 10/30/2019 8:50 AM PDTFormatting of this no te might be different from the original. INPATIENT ADULT PAIN SERVICE NEURAXIAL BLOCK PROGRESS NOTE 10/30/2019 Author: RUBINA GUZMAN MD Pain Service Attending Physician: Agnes Siegel MD Epidural day # 2. POD# 2. Status post: Left thoracoscopy, extensive lysis of adhesions, left muscle-sparin g thoracotomy, further lysis of adhesions, superior segmentectomy, mediastinal lymph node di ssections Interval events since last APS visit: - No acute events, insomnia last night unrelated to pain Mr. Escobedo complains of left chest pain at site of chest tube. His pain score at rest is 5/10. With activity, his pain score is 7/10. Specific activitie s that exacerbate Mr. Escobedo's pain include getting to a chair and walking. Mr. Escobedo is satis fied with current level of pain. History of chronic or preoperative pain: Neck pain Prior to hospitalization: No significant chronic use of opioids at home. Tizanidine QHS ROS/Side Effects: General: negative. Nausea/Vomiting: none Pruritus: none Numbness/Weakness: none Low BP: none Dizziness: none Sedation: none Activity level: Ambulatory Diet: Full liquids/Reg Diet/Tube Feeds Medications: Current Facility-Administered Medications Medication Dose Route Frequency Last Rate acetaminophen (TYLENOL) tablet 650 mg 650 mg oral Q4H WA aspirin EC tablet 81 mg 81 mg oral DAILY enoxaparin (LOVENOX) injection 40 mg 40 mg subcutaneous QPM metoprolol tartrate (LOPRESSOR) tablet 100 mg 100 mg oral BID multivitamin-minerals 1 tablet 1 tablet oral DAILY senna-docusate (SENOKOT S) 8.6-50 mg 1 tablet 1 tablet oral BID simvastatin (ZOCOR) tablet 20 mg 20 mg oral QPM Current Facility-Administered Medications Medication Dose Route Frequency Last Rate bisacodyL (DULCOLAX) suppository 10 mg 10 mg rectal DAILY PRN melatonin tablet 3 mg 3 mg oral HS PRN naloxone (NARCAN) 1,000 mcg in sodium chloride (NS) 0.9 % 250 mL (4 mcg/mL) IV infusion 0.25 mcg/kg/hr (Dosing Weight) intravenous PRN naloxone (NARCAN) injection intravenous PRN ondansetron (ZOFRAN) injection 4 mg 4 mg intravenous Q12H PRN ondansetron ODT (ZOFRAN ODT) tablet 8 mg 8 mg oral Q12H PRN polyethylene glycol (MIRALAX) packet 34 g 34 g oral TID PRN prochlorperazine (COMPAZINE) injection 5-10 mg 5-10 mg intravenous Q6H PRN prochlorperazine (COMPAZINE) tablet 5-10 mg 5-10 mg oral Q6H PRN Current Facility-Administered Medications Medication Dose Route Frequency Last Rate bupivacaine 0.05 %-HYDROmorphone 10 mcg/mL epidural infusion epidural CONTINUOUS 6 mL /hr at 10/30/19 0509 naloxone (NARCAN) 1,000 mcg in sodium chloride (NS) 0.9 % 250 mL (4 mcg/mL) IV infusion 0.25 mcg/kg/hr (Dosing Weight) intravenous PRN Type: Epidural Rate: 6 mL/hour Anticoagulants: Enoxaparin 40mg subcutaneous daily, last dose given yesterday at 2229 hrs. Lab Results Component Value Date INRPT 1.00 10/28/2019 PLT 184 10/29/2019 APTT 62.1 (H) 09/04/2013 Opioids: Epidural hydromorphone at 10 mcg/ml Other analgesic: APAP 650 mg q4h while awake Other psychoactive medications: Melatonin 3 mg qhs Physical Exam: Last Vitals:BP 120/66 (BP Location: Left upper arm, Patient Position: Lying on back) | Pul se 68 | Temp 37.4 C (99.3 F) (Oral) | Resp 20 | Ht 1.676 m (5' 6") | Wt 91.6 kg (201 lb 15.1 oz) | SpO2 96% | BMI 32.59 kg/m | BSA 2.07 m 24 hour Vitals min/max : Systolic (24hrs), Av , Min:109 , Max:125 Diastolic (24hrs), Av, Min:60, Max:66 Pulse Min: 68 Max: 83 Temp Min: 36.6 C (97.9 F) Max: 37.4 C (99.3 F) Resp Min: 16 Max: 20 SpO2 Min: 96 % Max: 100 % General Appearance and Neurological Examination: Mental Status: Alert Orientation: Oriented Sensory Level: deferred Motor: bilateral lower extremity(ies) -- No block: full flexion and extension of hip, knee and foot Neuraxial Catheter: Location: T6-T9;depth at skin 9 cm Clinically significant migration since placement? No Dressing: Needed support and Redressed Exit Site: Clean Insertion site exposed? No Chest tube in place. Assessment: Mr. Escobedo rates his pain relief as good. My personal assessment is concordant with this evaluation Lennon status: Epidural: at thoracic level; If Lennon is in place, it may be removed if deem ed appropriate by primary care team Diagnosis: 1. Acute post operative chest tube 2. Chronic neck and shoulder pain My treatment plan is: - Continue neuraxial infusion, titrate infusion as needed. Rate currently at 6 ml/hr with m ore room to titrate up. Encouraged patient to use PCEA button a few minutes prior to activit y. - Continue scheduled APAP - Consider ibuprofen if okay with surgical team - Once transitioning, patient prefers hydromorphone over oxycodone for oral agents Rubina Guzman MD Anesthesiology PGY-4 Associated attestation - Agnes Siegel MD - 10/30/2019 4:39 PM PDTI saw and evaluated patient Mr. Martita Escobedo III with Resident: Dr. Guzman. I reviewed all details of Mr. Karina Escobedo III s epidural block management. I have reviewed the resident s note and I a gree with the plan of care as documented. I do not have additional comments. Agnes Siegel MDWaHernán alfrde MD - 10/30/2019 5:50 AM PDTFormatting of this note m ight be different from the original. Thoracic Surgery Brief Inpatient Progress Note Patient name: MARTITA ESCOBEDO III Attending: Ronald Barth MD Procedure: 10/28/2019 24 hour events L VATS converted to muscle sparing thoracotomy, extensive CARMEN, Superior segm entectomy with MLNDx 24 hour vitals: Last 24 hour min/max Temp: 37.4 C (99.3 F) Temp Min: 36.6 C (97.9 F) Max: 37.4 C (99.3 F) Pulse: 68 Pulse Min: 68 Max: 90 Resp: 20 Resp Min: 16 Max: 20 BP: 120/66 BP Min: 92/54 Max: 125/61 SpO2: 96 % SpO2 Min: 96 % Max: 100 % Body mass index is 32.59 kg/m. Chest tube output: L CT 450cc, ss output, -20, -AL Brief Exam: NAD AOX3 Lungs CTAB RRR S/NT/ND MAEW Wound healing without complication CXR: Expected postop changes with chest tube in place, no significant effusion. Assessment/Plan: 64 yo M s/ the above operation doing well on [place]. Chest tube to water sea l. - Post-op pain: Epidural, prn's per APS. Appreciate APS rec's. - Chest tube management: Cont chest tube to water seal while output decreases, monitor outp ut, am CXR - CAD- home 81mg ASA, home metoprolol with hold parameters - HLD- on home statin - Urinary retention- lennon in while epidural in place - Prophylaxis: Lovenox prophy - FEN: Electrlyte replacement prn K>4, Mg >2, am labs, regular diet, prn bowel regimen - Dispo: Ongoing [place] care Plan (tsq-wewmtppr-mnfttoa issues); the brief history and exam findings are unchanged from above for this part of the note: - Discussed with Dr. Ronald Barth MDElectronically signed by Hernán Middleton MD at 10/29 9:20 AM PDTWhitYudelka de la o NP - 10/29/2019 11:02 AM PDTFormatting of this note migh t be different from the original. INPATIENT ADULT PAIN SERVICE NEURAXIAL BLOCK PROGRESS NOTE 10/29/2019 Author: Yudelka Cope NP Epidural day # 1. POD# 1. Status post: : Left thoracoscopy, extensive lysis of adhesions, left muscle-spar ing thoracotomy, further lysis of adhesions, superior segmentectomy, mediastinal lymph node dissections Previously Obtained: Past Medical History: Diagnosis Date Chronic pain neck/bilateral shoulders GERD (gastroesophageal reflux disease) intermittent use of PPI, not daily Hyperlipidemia Hypertension Impaired glucose tolerance controlled with diet/exercise Interval events since last APS visit: Doing okay, has been up walking Mr. Escobedo complains of left chest tube related pain pain. His pain score at rest is 6/10. With activity, his pain score is 8/10. Specific activitie s that exacerbate Mr. Escobedo's pain include getting out of bed. . Mr. Escobedo is satisfied with current level of pain. Pain scores are high but Mr. Escobedo tells us pain is tolerable. History of chronic or preoperative pain: neck pain Prior to hospitalization: No significant chronic use of opioids at home Tizanidine at HS ROS/Side Effects: General: negative. Nausea/Vomiting: none Pruritus: none Numbness/Weakness: none Low BP: none Dizziness: mild Sedation: none Activity level: Ambulatory Diet: Full liquids/Reg Diet/Tube Feeds Medications: Current Facility-Administered Medications Medication Dose Route Frequency Last Rate aspirin EC tablet 81 mg 81 mg oral DAILY enoxaparin (LOVENOX) injection 40 mg 40 mg subcutaneous QPM metoprolol tartrate (LOPRESSOR) tablet 100 mg 100 mg oral BID multivitamin-minerals 1 tablet 1 tablet oral DAILY senna-docusate (SENOKOT S) 8.6-50 mg 1 tablet 1 tablet oral BID simvastatin (ZOCOR) tablet 20 mg 20 mg oral QPM Current Facility-Administered Medications Medication Dose Route Frequency Last Rate acetaminophen (TYLENOL) tablet 650 mg 650 mg oral Q6H PRN bisacodyL (DULCOLAX) suppository 10 mg 10 mg rectal DAILY PRN melatonin tablet 3 mg 3 mg oral HS PRN naloxone (NARCAN) 1,000 mcg in sodium chloride (NS) 0.9 % 250 mL (4 mcg/mL) IV infusion 0.25 mcg/kg/hr (Dosing Weight) intravenous PRN naloxone (NARCAN) injection intravenous PRN ondansetron (ZOFRAN) injection 4 mg 4 mg intravenous Q12H PRN ondansetron ODT (ZOFRAN ODT) tablet 8 mg 8 mg oral Q12H PRN polyethylene glycol (MIRALAX) packet 34 g 34 g oral TID PRN prochlorperazine (COMPAZINE) injection 5-10 mg 5-10 mg intravenous Q6H PRN prochlorperazine (COMPAZINE) tablet 5-10 mg 5-10 mg oral Q6H PRN Current Facility-Administered Medications Medication Dose Route Frequency Last Rate bupivacaine 0.05 %-HYDROmorphone 10 mcg/mL epidural infusion epidural CONTINUOUS 5 mL /hr at 10/29/19 0720 naloxone (NARCAN) 1,000 mcg in sodium chloride (NS) 0.9 % 250 mL (4 mcg/mL) IV infusion 0.25 mcg/kg/hr (Dosing Weight) intravenous PRN Type: Epidural Rate: 5 mL/hour Anticoagulants: Enoxaparin 40mg subcutaneous daily, not yet given, scheduled to begin today Lab Results Component Value Date INRPT 1.00 10/28/2019 PLT 184 10/29/2019 APTT 62.1 (H) 09/04/2013 Opioids: None Other analgesics: None Other psychoactive medications: None Physical Exam: Last Vitals:BP 123/59 (BP Location: Left upper arm, Patient Position: Lying on back) | Pul se 90 | Temp 37.1 C (98.8 F) (Oral) | Resp 18 | Ht 1.676 m (5' 6") | Wt 91.6 kg (201 lb 15.1 oz) | SpO2 100% | BMI 32.59 kg/m | BSA 2.07 m 24 hour Vitals min/max : Systolic (24hrs), Av , Min:54 , Max:143 Diastolic (24hrs), Av, Min:42, Max:73 Pulse Min: 34 Max: 90 Temp Min: 36.4 C (97.5 F) Max: 37.1 C (98.8 F) Resp Min: 15 Max: 22 SpO2 Min: 96 % Max: 100 % General Appearance and Neurological Examination: Mental Status: Alert Orientation: Oriented Sensory Level: deferred Motor: bilateral lower extremity(ies) -- No block: full flexion and extension of hip, knee and foot Neuraxial Catheter: Location: T6-T9;depth at skin 9 cm Clinically significant migration since placement? No Dressing: Intact Exit Site: Clean and Non-tender Insertion site exposed? No Chest tube in place. Assessment: Mr. Escobedo rates his pain relief as good. My personal assessment is concordant with this evaluation Lennon status: Epidural: at thoracic level; If Lennon is in place, it may be removed if deem ed appropriate by primary care team Diagnosis: 1. Acute post operative chest tube 2. Chronic neck and shoulder pain My treatment plan is: Continue neuraxial infusion, titrate infusion as needed Can increase rate as needed, encourage PCEA use with activity Add scheduled APAP Add PO ibuprofen if okay from surgical Will touch base with Thoracic Surgery Yudelka Cope NP Adult Pain Service Pager [phone] Team Pager [phone] Hernán Dimas MD - 10/29/2019 6:51 AM PDT Thoracic Surgery Brief Inpatient Progress Note Patient name: MARTITA ESCOBEDO III Attending: Ronald Barth MD Procedure: 10/28/2019 24 hour events L VATS converted to muscle sparing thoracotomy, extensive CARMEN, Superior segm entectomy with MLNDx 24 hour vitals: Last 24 hour min/max Temp: 36.7 C (98.1 F) Temp Min: 36.4 C (97.5 F) Max: 37.1 C (98.8 F) Pulse: 86 Pulse Min: 34 Max: 87 Resp: 18 Resp Min: 15 Max: 22 BP: 126/67 BP Min: 54/42 Max: 155/85 SpO2: 100 % SpO2 Min: 96 % Max: 100 % Body mass index is 32.59 kg/m. Chest tube output: L CT 550cc, ss output, -20, -AL Brief Exam: NAD AOX3 Lungs CTAB RRR S/NT/ND MAEW Wound healing without complication CXR: Expected postop changes with chest tube in place, no significant effusion. Assessment/Plan: 64 yo M s/ the above operation doing well on [place]. Chest tube to water sea l. - Post-op pain: Epidural, prn's per APS. Appreciate APS rec's. - Chest tube management: Chest tube to water seal, monitor output, am CXR - CAD- home 81mg ASA, home metoprolol with hold parameters - HLD- on home statin - Urinary retention- lennon in while epidural in place - Prophylaxis: Lovenox to start tonnight - FEN: Electrlyte replacement prn K>4, Mg >2, regular diet, prn bowel regimen - Dispo: Ongoing [place] care Plan ([id number]-[id number] issues); the brief history and exam findings are unchanged from above for this part of the note: - Discussed with Dr. Ronald Barth MDElectronically signed by Hernán Middleton MD at 10/28 10:00 PM PDTdocumented in this encounter Plan of Treatment +--------+ [...] [address] | | | | | | [place], [place] | | | | | | [address] | | | | | | [phone] | | | | | | | | +--------+ + + + + documented as of this encounter Procedures + +--------+ + + + | Procedure Name | Priori | Date/Time | Associated Diagnosis | Comments | | | ty | | | | + +--------+ + + + | CARDIOLOGY | | 11/01/2019 | | Results for this | | | | 12:00 AM | | procedure are in the | | | | PDT | | results section. | + +--------+ + + + | CARDIOLOGY | | 11/01/2019 | | Results for this | | | | 12:00 AM | | procedure are in the | | | | PDT | | results section. | + +--------+ + + + | X-RAY CHEST 1 VIEW | Routin | 10/31/2019 | | Results for this | | | e | 1:10 PM | | procedure are in the | | | | PDT | | results section. | + +--------+ + + + | PROCEDURE NOTE | Routin | 10/31/2019 | | Results for this | | | e | 10:05 AM | | procedure are in the | | | | PDT | | results section. | + +--------+ + + + | X-RAY PORTABLE CHEST | Routin | 10/31/2019 | | Results for this | | 1 VIEW | e | 7:17 AM | | procedure are in the | | | | PDT | | results section. | + +--------+ + + + | CBC (HEMOGRAM) ONLY | Routin | 10/31/2019 | | Results for this | | | e | 3:59 AM | | procedure are in the | | | | PDT | | results section. | + +--------+ + + + | BASIC METABOLIC SET | Routin | 10/31/2019 | | Results for this | | (NA, K, CL, TCO2, | e | 3:59 AM | | procedure are in the | | BUN, CR, GLU, CA) | | PDT | | results section. | + +--------+ + + + | CBC ONLY | Routin | 10/31/2019 | | Results for this | | | e | 3:59 AM | | procedure are in the | | | | PDT | | results section. | + +--------+ + + + | CARDIOLOGY | | 10/31/2019 | | Results for this | | | | 12:00 AM | | procedure are in the | | | | PDT | | results section. | + +--------+ + + + | CARDIOLOGY | | 10/30/2019 | | Results for this | | | | 12:00 AM | | procedure are in the | | | | PDT | | results section. | + +--------+ + + + | X-RAY PORTABLE CHEST | Urgent | 10/29/2019 | | Results for this | | 1 VIEW | | 5:22 AM | | procedure are in the | | | | PDT | | results section. | + +--------+ + + + | CBC (HEMOGRAM) ONLY | Urgent | 10/29/2019 | | Results for this | | | | 5:17 AM | | procedure are in the | | | | PDT | | results section. | + +--------+ + + + | RENAL FUNCTION SET | Urgent | 10/29/2019 | | Results for this | | (NA,K,CL,CO2,BUN,CRE | | 5:17 AM | | procedure are in the | | AT,GLUC,CA,PHOS,ALB | | PDT | | results section. | | ) | | | | | + +--------+ + + + | CBC ONLY | Urgent | 10/29/2019 | | Results for this | | | | 5:17 AM | | procedure are in the | | | | PDT | | results section. | + +--------+ + + + | CARDIOLOGY | | 10/29/2019 | | Results for this | | | | 12:00 AM | | procedure are in the | | | | PDT | | results section. | + +--------+ + + + | CARDIOLOGY | | 10/29/2019 | | Results for this | | | | 12:00 AM | | procedure are in the | | | | PDT | | results section. | + +--------+ + + + | CARDIOLOGY | | 10/29/2019 | | Results for this | | | | 12:00 AM | | procedure are in the | | | | PDT | | results section. | + +--------+ + + + | X-RAY PORTABLE CHEST | Urgent | 10/28/2019 | | Results for this | | 1 VIEW | | 7:33 PM | | procedure are in the | | | | PDT | | results section. | + +--------+ + + + | CAPILLARY BLOOD | Routin | 10/28/2019 | Primary cancer of | Results for this | | GLUCOSE (NO CHG), | e | 7:09 PM | left lower lobe of | procedure are in the | | POC | | PDT | lung (HCC) | results section. | + +--------+ + + + | SURGICAL PATHOLOGY | Routin | 10/28/2019 | | Results for this | | | e | 5:08 PM | | procedure are in the | | | | PDT | | results section. | + +--------+ + + + | VIDEO ASSISTED | | 10/28/2019 | Primary cancer of | | | THORACOSCOPIC | | 1:59 PM | left lower lobe of | | | LOBECTOMY | | PDT | lung | | + +--------+ + + + | CAPILLARY BLOOD | Routin | 10/28/2019 | Primary cancer of | Results for this | | GLUCOSE (NO CHG), | e | 10:59 AM | left lower lobe of | procedure are in the | | POC | | PDT | lung (HCC) | results section. | + +--------+ + + + | INTRAPROCEDURE | Routin | 10/28/2019 | | Results for this | | IMAGING | e | 10:23 AM | | procedure are in the | | | | PDT | | results section. | + +--------+ + + + | CARDIOLOGY | | 10/28/2019 | | Results for this | | | | 12:00 AM | | procedure are in the | | | | PDT | | results section. | + +--------+ + + + | CARDIOLOGY | | 10/28/2019 | | Results for this | | | | 12:00 AM | | procedure are in the | | | | PDT | | results section. | + +--------+ + + + | CARDIOLOGY | | 10/28/2019 | | Results for this | | | | 12:00 AM | | procedure are in the | | | | PDT | | results section. | + +--------+ + + + | CARDIOLOGY | | 10/28/2019 | | Results for this | | | | 12:00 AM | | procedure are in the | | | | PDT | | results section. | + +--------+ + + + | COVID-19 | Urgent | 10/26/2019 | | Results for this | | | | 2:56 PM | | procedure are in the | | | | PDT | | results section. | + +--------+ + + + documented in this encounter Results CARDIOLOGY (11/01/2019 12:00 AM PDT) + + + | Narrative | Performed At | + + + | | | + + + CARDIOLOGY (11/01/2019 12:00 AM PDT) + + + | Narrative | Performed At | + + + | | | + + + X-RAY CHEST 1 VIEW (10/31/2019 1:10 PM PDT) + + | Specimen | + + | | + + + + + | Narrative | Performed At | + + + | EXAM: CHEST 1 VIEW HISTORY: s/p L ct removal COMPARISON: | [facility] | | 10/31/2019 at 7:03 AM FINDINGS: The left chest tube has been | RADIOLOGY VOICE | | removed. Trace left apical pneumothorax, small layering left pleural | RECOGNITION 2 | | effusion/pleural thickening is unchanged. Left basilar subsegmental | | | atelectasis is observed without change. The right lung is clear. The | | | cardiac and mediastinal borders are stable. Subcutaneous emphysema is | | | little changed. IMPRESSION: Unchanged trace left apical | | | pneumothorax following removal of left chest tube. Unchanged small | | | left pleural effusion/pleural thickening and left basilar | | | subsegmental atelectasis. I have personally reviewed the images | | | and, if necessary, edited the report. I agree with the report as now | | | presented. Final signature: Violeta Peguero MD 10/31/2019 | | | 3:02 PM Preliminary: Violeta Peguero MD Dictation | | | initiated: Violeta Peguero MD 10/31/2019 3:01 PM | | + + + + + | Procedure Note | + + | Service Account, RadiBeest[facility] Res In Interface - 10/31/2019 3:03 PM PDT EXAM: CHEST 1 | | VIEW HISTORY: s/p L ct removal COMPARISON: 10/31/2019 at 7:03 AM FINDINGS: The left | | chest tube has been removed. Trace left apical pneumothorax, small layering left pleural | | effusion/pleural thickening is unchanged. Left basilar subsegmental atelectasis is | | observed without change. The right lung is clear. The cardiac and mediastinal borders | | are stable. Subcutaneous emphysema is little changed. IMPRESSION: Unchanged trace left | | apical pneumothorax following removal of left chest tube. Unchanged small left pleural | | effusion/pleural thickening and left basilar subsegmental atelectasis. I have personally | | reviewed the images and, if necessary, edited the report. I agree with the report as | | now presented. Final signature: Violeta Peguero MD 10/31/2019 3:02 PM Preliminary: | | Violeta Peguero MD Dictation initiated: Violeta Peguero MD 10/31/2019 3:01 PM | |IMPRESSION: | | | |Unchanged trace left apical pneumothorax following removal of left chest tube. | | | |Unchanged small left pleural effusion/pleural thickening and left basilar subsegmental atel ectasis. | | | |I have personally reviewed the images and, if necessary, edited the report. I agree with e report as now presented. | | | |Final signature: Violeta Peguero MD 10/31/2019 3:02 PM | |Preliminary: Violeta Peguero MD | |Dictation initiated: Violeta Peguero MD 10/31/2019 3:01 PM | + + + +---------+ + + | Performing | Address | City/State/Zipcode | Phone Number | | Organization | | | | + +---------+ + + | [facility] | | | | | VOICE RECOGNITION 2 | | | | + +---------+ + + PROCEDURE NOTE (10/31/2019 10:05 AM PDT) + + + | Narrative | Performed At | + + + | Rody Weinstein PA-C 10/31/2019 10:05 AM left chest drain | | | removed without complication. Suture tied. Dressing applied. | | + + + X-RAY PORTABLE CHEST 1 VIEW (10/31/2019 7:17 AM PDT) + + | Specimen | + + | | + + + + + | Narrative | Performed At | + + + | EXAM: PA CHEST 1 VIEW HISTORY: s/p L VATS to thoracotomy with | [facility] | | extensive CARMEN, superior segmentectomy and mediastinal node dissection, | RADIOLOGY VOICE | | chest tubes in place on water seal, eval for pneumo, effusion, other. | RECOGNITION 2 | | COMPARISON: 10/29/2019 FINDINGS: Left-sided chest tube | | | remains in place. Median sternotomy wires are intact. Subcutaneous | | | emphysema is seen in the left chest wall. Trace left apical | | | pneumothorax is unchanged. Persistent trace small left pleural | | | effusion and left basilar subsegmental atelectasis. Resolution of | | | right basilar atelectasis. The cardiomediastinal contour is stable. No | | | pulmonary edema or focal consolidation. IMPRESSION: Unchanged | | | trace left apical pneumothorax, small left pleural effusion and left | | | basilar atelectasis. Resolution of right basilar atelectasis.. | | | I have personally reviewed the images and, if necessary, edited the | | | report. I agree with the report as now presented. Final | | | signature: Violeta Peguero MD 10/31/2019 5:27 PM Preliminary: | | | Violeta Peguero MD Dictation initiated: Violeta Peguero | | | 10/31/2019 2:59 PM | | + + + + + | Procedure Note | + + | Service Account, Radiant Res In Interface - 10/31/2019 5:28 PM PDT EXAM: PA CHEST 1 | | VIEW HISTORY: s/p L VATS to thoracotomy with extensive CARMEN, superior segmentectomy and | | mediastinal node dissection, chest tubes in place on water seal, eval for pneumo, | | effusion, other. COMPARISON: 10/29/2019 FINDINGS: Left-sided chest tube remains in | | place. Median sternotomy wires are intact. Subcutaneous emphysema is seen in the left | | chest wall. Trace left apical pneumothorax is unchanged. Persistent trace small left | | pleural effusion and left basilar subsegmental atelectasis. Resolution of right basilar | | atelectasis. The cardiomediastinal contour is stable. No pulmonary edema or focal | | consolidation. IMPRESSION: Unchanged trace left apical pneumothorax, small left pleural | | effusion and left basilar atelectasis. Resolution of right basilar atelectasis.. I have | | personally reviewed the images and, if necessary, edited the report. I agree with the | | report as now presented. Final signature: Violeta Peguero MD 10/31/2019 5:27 PM | | Preliminary: Violeta Peguero MD Dictation initiated: Violeta Peguero MD | | 10/31/2019 2:59 PM | | | |Resolution of right basilar atelectasis.. | | | |I have personally reviewed the images and, if necessary, edited the report. I agree with th e report as now presented. | | | |Final signature: Violeta Peguero MD 10/31/2019 5:27 PM | |Preliminary: Violeta Peguero MD | |Dictation initiated: Violeta Peguero MD 10/31/2019 2:59 PM | + + + +---------+ + + | Performing | Address | City/State/Zipcode | Phone Number | | Organization | | | | + +---------+ + + | [facility] | | | | | VOICE RECOGNITION 2 | | | | + +---------+ + + CBC (HEMOGRAM) ONLY (10/31/2019 3:59 AM PDT) + + + + + + | Component | Value | Ref Range | Performed | Pathologist | | | | | At | Signature | + + + + + + | WHITE CELL | 12.02 (H) | 3.50 - 10.80 | [facility] | | | COUNT | | K/cu mm | LABORATORY | | | | | | SERVICES, | | | | | | CORE | | + + + + + + | RED CELL | 3.89 (L) | 4.50 - 6.00 | [facility] | | | COUNT | | M/cu mm | LABORATORY | | | | | | SERVICES, | | | | | | CORE | | + + + + + + | HEMOGLOBIN | 12.3 (L) | 13.5 - 17.5 | [facility] | | | | | g/dL | LABORATORY | | | | | | SERVICES, | | | | | | CORE | | + + + + + + | HEMATOCRIT | 36.8 (L) | 41.0 - 53.0 % | [facility] | | | | | | LABORATORY | | | | | | SERVICES, | | | | | | CORE | | + + + + + + | MCV | 94.6 | 80.0 - 100.0 fL | [facility] | | | | | | LABORATORY | | | | | | SERVICES, | | | | | | CORE | | + + + + + + | MCHC | 33.4 | 32.0 - 36.0 | [facility] | | | | | g/dL | LABORATORY | | | | | | SERVICES, | | | | | | CORE | | + + + + + + | RDW SD | 46.1 | 35.1 - 46.3 fL | [facility] | | | | | | LABORATORY | | | | | | SERVICES, | | | | | | CORE | | + + + + + + | PLATELET | 154 | 150 - 400 K/cu | [facility] | | | COUNT | | mm | LABORATORY | | | | | | SERVICES, | | | | | | CORE | | + + + + + + | MPV | 10.3 | 9.7 - 12.3 fL | [facility] | | | | | | LABORATORY | | | | | | SERVICES, | | | | | | CORE | | + + + + + + | NRBC% | 0.0 | 0.0 - 0.3 % | [facility] | | | | | | LABORATORY | | | | | | SERVICES, | | | | | | CORE | | + + + + + + | NRBC# | 0.00 | 0.00 - 0.02 | [facility] | | | | | K/cu mm | LABORATORY | | | | | | SERVICES, | | | | | | CORE | | + + + + + + + + | Specimen | + + | Blood - Blood | | (substance) | + + + + + + + | Performing | Address | City/State/Zipcode | Phone Number | | Organization | | | | + + + + + | [facility] | [address] | [place] [address] | | | SERVICES, CORE | [address] | | | + + + + + BASIC METABOLIC SET (NA, K, CL, TCO2, BUN, CR, GLU, CA) (10/31/2019 3:59 AM PDT) + + + + + + | Component | Value | Ref Range | Performed | Pathologist | | | | | At | Signature | + + + + + + | GLUCOSE, | 104 (H) | 70 - 99 mg/dL | [facility] | | | PLASMA | | | LABORATORY | | | (LAB) | | | SERVICES, | | | | | | CORE | | + + + + + + | BUN, PLASMA | 11 | 6 - 20 mg/dL | [facility] | | | (LAB) | | | LABORATORY | | | | | | SERVICES, | | | | | | CORE | | + + + + + + | CREATININE | 0.56 (L) | 0.70 - 1.30 | [facility] | | | PLASMA | | mg/dL | LABORATORY | | | (LAB) | | | SERVICES, | | | | | | CORE | | + + + + + + | EGFR | >60 | >60 mL/min | [facility] | | | - | | | LABORATORY | | | [place] | | | SERVICES, | | | | | | CORE | | + + + + + + | EGFR NON | >60 | >60 mL/min | [facility] | | | -DEIDRE | | | LABORATORY | | | RICAN | | | SERVICES, | | | | | | CORE | | + + + + + + | SODIUM, | 130 (L) | 136 - 145 | [facility] | | | PLASMA | | mmol/L | LABORATORY | | | (LAB) | | | SERVICES, | | | | | | CORE | | + + + + + + | POTASSIUM, | 3.9 | 3.4 - 5.0 | [facility] | | | PLASMA | | mmol/L | LABORATORY | | | (LAB) | | | SERVICES, | | | | | | CORE | | + + + + + + | CHLORIDE, | 101 | 97 - 108 mmol/L | [facility] | | | PLASMA | | | LABORATORY | | | (LAB) | | | SERVICES, | | | | | | CORE | | + + + + + + | TOTAL CO2, | 28 | 21 - 32 mmol/L | [facility] | | | PLASMA | | | LABORATORY | | | (LAB) | | | SERVICES, | | | | | | CORE | | + + + + + + | CALCIUM, | 8.3 (L) | 8.6 - 10.2 | [facility] | | | PLASMA | | mg/dL | LABORATORY | | | (LAB) | | | SERVICES, | | | | | | CORE | | + + + + + + | ANION GAP | 1 (L) | 4 - 11 mmol/L | [facility] | | | | | | LABORATORY | | | | | | SERVICES, | | | | | | CORE | | + + + + + + | POTASSIUM | No Hemo | | [facility] | | | CMNT | | | LABORATORY | | | | | | SERVICES, | | | | | | CORE | | + + + + + + | BUN/CREATIN | 20 | 8 - 25 | [facility] | | | INE RATIO | | | LABORATORY | | | | | | SERVICES, | | | | | | CORE | | + + + + + + + + | Specimen | + + | Blood - Blood | | (substance) | + + + + + | Narrative | Performed At | + + + | GFR is estimated using the MDRD equation recommended by the National | [facility] | | Kidney Disease Education Program. Estimated GFR Interpretive | LABORATORY | | Information: <60 mL/min/1.73 sq m Chronic Kidney | SERVICES, CORE | | Disease <15 mL/min/1.73 sq m Kidney Failure | | | Estimated GFR greater than 60 mL/min/1.73 sq m is of limited clinical | | | value. The MDRD equation is not valid in the following situations: | | | - Patients under 18 years of age - Severe malnutrition or obesity | | | - Vegetarian diet - Rapidly changing kidney function - Amputees, | | | paraplegics, or other muscle-wasting diseases | | + + + + + + + + | Performing | Address | City/State/Zipcode | Phone Number | | Organization | | | | + + + + + | [facility] [employer] | [address] | [place] [address] | | | SERVICES, CORE | [address] | | | + + + + + CARDIOLOGY (10/31/2019 12:00 AM PDT) + + + | Narrative | Performed At | + + + | | | + + + CARDIOLOGY (10/30/2019 12:00 AM PDT) + + + | Narrative | Performed At | + + + | | | + + + X-RAY PORTABLE CHEST 1 VIEW (10/29/2019 5:22 AM PDT) + + | Specimen | + + | | + + + + + | Narrative | Performed At | + + + | EXAM: PA CHEST 1 VIEW HISTORY: s/p left thoracotomy, superior | [facility] | | segmentectomy COMPARISON: 10/28/2019 FINDINGS: | RADIOLOGY VOICE | | Left-sided chest tube remains in place. Trace left apical pneumothorax | RECOGNITION 2 | | as before. There is a small amount of left chest wall's soft tissue | | | gas. Left greater than right bibasilar atelectasis evident. No | | | pulmonary edema. IMPRESSION: Unchanged trace left | | | pneumothorax. Left greater than right bibasilar atelectasis. I | | | have personally reviewed the images and, if necessary, edited the | | | report. I agree with the report as now presented. Final | | | signature: Barry Diaz MD 10/29/2019 9:48 AM Preliminary: Barry Garza | Greg Diaz MD Dictation initiated: Barry Diaz MD | | | 10/29/2019 9:48 AM | | + + + + + | Procedure Note | + + | Service Account, Radiant Res In Interface - 10/29/2019 9:50 AM PDT EXAM: PA CHEST 1 | | VIEW HISTORY: s/p left thoracotomy, superior segmentectomy COMPARISON: 10/28/2019 | | FINDINGS: Left-sided chest tube remains in place. Trace left apical pneumothorax as | | before. There is a small amount of left chest wall's soft tissue gas. Left greater than | | right bibasilar atelectasis evident. No pulmonary edema. IMPRESSION: Unchanged trace | | left pneumothorax. Left greater than right bibasilar atelectasis. I have personally | | reviewed the images and, if necessary, edited the report. I agree with the report as now | | presented. Final signature: Barry Diaz MD 10/29/2019 9:48 AM Preliminary: Barry | Greg Diaz MD Dictation initiated: Barry Diaz MD 10/29/2019 9:48 AM | | | |IMPRESSION: | | | |Unchanged trace left pneumothorax. | | | |Left greater than right bibasilar atelectasis. | | | |I have personally reviewed the images and, if necessary, edited the report. I agree with th e report as now presented. | | | |Final signature: Barry Diaz MD 10/29/2019 9:48 AM | |Preliminary: Barry Diaz MD | |Dictation initiated: Barry Diaz MD 10/29/2019 9:48 AM | + + + +---------+ + + | Performing | Address | City/State/Zipcode | Phone Number | | Organization | | | | + +---------+ + + | [facility] | | | | | VOICE RECOGNITION 2 | | | | + +---------+ + + CBC (HEMOGRAM) ONLY (10/29/2019 5:17 AM PDT) + + + + + + | Component | Value | Ref Range | Performed | Pathologist | | | | | At | Signature | + + + + + + | WHITE CELL | 11.34 (H) | 3.50 - 10.80 | [facility] | | | COUNT | | K/cu mm | LABORATORY | | | | | | SERVICES, | | | | | | CORE | | + + + + + + | RED CELL | 4.13 (L) | 4.50 - 6.00 | [facility] | | | COUNT | | M/cu mm | LABORATORY | | | | | | SERVICES, | | | | | | CORE | | + + + + + + | HEMOGLOBIN | 13.2 (L) | 13.5 - 17.5 | [facility] | | | | | g/dL | LABORATORY | | | | | | SERVICES, | | | | | | CORE | | + + + + + + | HEMATOCRIT | 39.7 (L) | 41.0 - 53.0 % | [facility] | | | | | | LABORATORY | | | | | | SERVICES, | | | | | | CORE | | + + + + + + | MCV | 96.1 | 80.0 - 100.0 fL | [facility] | | | | | | LABORATORY | | | | | | SERVICES, | | | | | | CORE | | + + + + + + | MCHC | 33.2 | 32.0 - 36.0 | [facility] | | | | | g/dL | LABORATORY | | | | | | SERVICES, | | | | | | CORE | | + + + + + + | RDW SD | 49.3 (H) | 35.1 - 46.3 fL | [facility] | | | | | | LABORATORY | | | | | | SERVICES, | | | | | | CORE | | + + + + + + | PLATELET | 184 | 150 - 400 K/cu | [facility] | | | COUNT | | mm | LABORATORY | | | | | | SERVICES, | | | | | | CORE | | + + + + + + | MPV | 10.0 | 9.7 - 12.3 fL | [facility] | | | | | | LABORATORY | | | | | | SERVICES, | | | | | | CORE | | + + + + + + | NRBC% | 0.0 | 0.0 - 0.3 % | [facility] | | | | | | LABORATORY | | | | | | SERVICES, | | | | | | CORE | | + + + + + + | NRBC# | 0.00 | 0.00 - 0.02 | [facility] | | | | | K/cu mm | LABORATORY | | | | | | SERVICES, | | | | | | CORE | | + + + + + + + + | Specimen | + + | Blood - Blood | | (substance) | + + + + + + + | Performing | Address | City/State/Zipcode | Phone Number | | Organization | | | | + + + + + | [facility] | [address] | [place] [address] | | | SERVICES, CORE | [address] | | | + + + + + RENAL FUNCTION SET (NA,K,CL,CO2,BUN,CREAT,GLUC,CA,PHOS,ALB ) (10/29/2019 5:17 AM PDT) + +---------+ + + + | Component | Value | Ref Range | Performed | Pathologist | | | | | At | Signature | + +---------+ + + + | GLUCOSE, | 137 (H) | 70 - 99 mg/dL | [facility] | | | PLASMA | | | LABORATORY | | | (LAB) | | | SERVICES, | | | | | | CORE | | + +---------+ + + + | BUN, PLASMA | 12 | 6 - 20 mg/dL | [facility] | | | (LAB) | | | LABORATORY | | | | | | SERVICES, | | | | | | CORE | | + +---------+ + + + | CREATININE | 0.73 | 0.70 - 1.30 | [facility] | | | PLASMA | | mg/dL | LABORATORY | | | (LAB) | | | SERVICES, | | | | | | CORE | | + +---------+ + + + | EGFR | >60 | >60 mL/min | [facility] | | | - | | | LABORATORY | | | PAK[place]ANI | | | SERVICES, | | | | | | CORE | | + +---------+ + + + | EGFR NON | >60 | >60 mL/min | [facility] | | | -DEIDRE | | | LABORATORY | | | RICAN | | | SERVICES, | | | | | | CORE | | + +---------+ + + + | SODIUM, | 139 | 136 - 145 | [facility] | | | PLASMA | | mmol/L | LABORATORY | | | (LAB) | | | SERVICES, | | | | | | CORE | | + +---------+ + + + | POTASSIUM, | 3.7 | 3.4 - 5.0 | [facility] | | | PLASMA | | mmol/L | LABORATORY | | | (LAB) | | | SERVICES, | | | | | | CORE | | + +---------+ + + + | CHLORIDE, | 105 | 97 - 108 mmol/L | [facility] | | | PLASMA | | | LABORATORY | | | (LAB) | | | SERVICES, | | | | | | CORE | | + +---------+ + + + | TOTAL CO2, | 28 | 21 - 32 mmol/L | [facility] | | | PLASMA | | | LABORATORY | | | (LAB) | | | SERVICES, | | | | | | CORE | | + +---------+ + + + | CALCIUM, | 8.1 (L) | 8.6 - 10.2 | [facility] | | | PLASMA | | mg/dL | LABORATORY | | | (LAB) | | | SERVICES, | | | | | | CORE | | + +---------+ + + + | CALCIUM(ALB | 8.8 | 8.6 - 10.2 | [facility] | | | CORRECTED) | | mg/dL | LABORATORY | | | | | | SERVICES, | | | | | | CORE | | + +---------+ + + + | ALBUMIN, | 3.1 (L) | 3.5 - 4.7 g/dL | [facility] | | | PLASMA | | | LABORATORY | | | (LAB) | | | SERVICES, | | | | | | CORE | | + +---------+ + + + | PHOSPHORUS, | 3.4 | 2.4 - 4.7 mg/dL | [facility] | | | PLASMA | | | LABORATORY | | | (LAB) | | | SERVICES, | | | | | | CORE | | + +---------+ + + + | POTASSIUM | No Hemo | | [facility] | | | CMNT | | | LABORATORY | | | | | | SERVICES, | | | | | | CORE | | + +---------+ + + + | ANION GAP | 6 | 4 - 11 mmol/L | [facility] | | | | | | LABORATORY | | | | | | SERVICES, | | | | | | CORE | | + +---------+ + + + | ANION | 8 | 4 - 11 mmol/L | [facility] | | | GAP(ALB | | | LABORATORY | | | CORRECTED) | | | SERVICES, | | | | | | CORE | | + +---------+ + + + | BUN/CREATIN | 16 | 8 - 25 | [facility] | | | INE RATIO | | | LABORATORY | | | | | | SERVICES, | | | | | | CORE | | + +---------+ + + + + + | Specimen | + + | Blood - Blood | | (substance) | + + + + + | Narrative | Performed At | + + + | GFR is estimated using the MDRD equation recommended by the National | [facility] | | Kidney Disease Education Program. Estimated GFR Interpretive | LABORATORY | | Information: <60 mL/min/1.73 sq m Chronic Kidney | SERVICES, CORE | | Disease <15 mL/min/1.73 sq m Kidney Failure | | | Estimated GFR greater than 60 mL/min/1.73 sq m is of limited clinical | | | value. The MDRD equation is not valid in the following situations: | | | - Patients under 18 years of age - Severe malnutrition or obesity | | | - Vegetarian diet - Rapidly changing kidney function - Amputees, | | | paraplegics, or other muscle-wasting diseases | | + + + + + + + + | Performing | Address | City/State/Zipcode | Phone Number | | Organization | | | | + + + + + | [facility] | [address] | [place] [address] | | | BRADFORD, RUDY | [address] | | | + + + + + CARDIOLOGY (10/29/2019 12:00 AM PDT) + + + | Narrative | Performed At | + + + | | | + + + CARDIOLOGY (10/29/2019 12:00 AM PDT) + + + | Narrative | Performed At | + + + | | | + + + CARDIOLOGY (10/29/2019 12:00 AM PDT) + + + | Narrative | Performed At | + + + | | | + + + X-RAY PORTABLE CHEST 1 VIEW (10/28/2019 7:33 PM PDT) + + | Specimen | + + | | + + + + + | Narrative | Performed At | + + + | EXAM: PA CHEST 1 VIEW HISTORY: s/p left thoracotomy, superior | [facility] | | segmentectomy COMPARISON: 09/09/2013 FINDINGS: | RADIOLOGY VOICE | | Left-sided postoperative changes with left-sided chest tube in place. | RECOGNITION 2 | | Lung volumes are low. There is bibasilar atelectasis. Trace left | | | pneumothorax noted. There is no pulmonary edema. Changes of prior | | | sternotomy redemonstrated. IMPRESSION: Left-sided postsurgical | | | changes with chest tube in place. Trace left pneumothorax. | | | Bibasilar atelectasis. I have personally reviewed the images and, | | | if necessary, edited the report. I agree with the report as now | | | presented. Final signature: Barry Diaz MD 10/29/2019 9:48 | | | AM Preliminary: Barry Diaz MD Dictation initiated: Barry Garza | Greg Diaz MD 10/29/2019 9:46 AM | | + + + + + | Procedure Note | + + | Service Account, Radiant Res In Interface - 10/29/2019 9:49 AM PDT EXAM: PA CHEST 1 | | VIEW HISTORY: s/p left thoracotomy, superior segmentectomy COMPARISON: 09/09/2013 | | FINDINGS: Left-sided postoperative changes with left-sided chest tube in place. Lung | | volumes are low. There is bibasilar atelectasis. Trace left pneumothorax noted. There is | | no pulmonary edema. Changes of prior sternotomy redemonstrated. IMPRESSION: Left-sided | | postsurgical changes with chest tube in place. Trace left pneumothorax. Bibasilar | | atelectasis. I have personally reviewed the images and, if necessary, edited the report. | | I agree with the report as now presented. Final signature: Barry Diaz MD | | 10/29/2019 9:48 AM Preliminary: Barry Diaz MD Dictation initiated: Barry Diaz | | 10/29/2019 9:46 AM | |IMPRESSION: | | | |Left-sided postsurgical changes with chest tube in place. Trace left pneumothorax. | | | |Bibasilar atelectasis. | | | |I have personally reviewed the images and, if necessary, edited the report. I agree with th e report as now presented. | | | |Final signature: Barry Diaz MD 10/29/2019 9:48 AM | |Preliminary: Barry Diaz MD | |Dictation initiated: Barry Diaz MD 10/29/2019 9:46 AM | + + + +---------+ + + | Performing | Address | City/State/Zipcode | Phone Number | | Organization | | | | + +---------+ + + | [facility] | | | | | VOICE RECOGNITION 2 | | | | + +---------+ + + CAPILLARY BLOOD GLUCOSE (NO CHG), POC (10/28/2019 7:09 PM PDT) + +---------+ + + + | Component | Value | Ref Range | Performed | Pathologist | | | | | At | Signature | + +---------+ + + + | BLOOD | 124 (H) | 70 - 99 mg/dL | [facility] | | | GLUCOSE, | | | [facility] | | | POC | | | [facility] | | | | | | OF CARE | | | | | | TESTS | | + +---------+ + + + + + | Specimen | + + | Blood | + + + + + + + | Performing | Address | City/State/Zipcode | Phone Number | | Organization | | | | + + + + + | [facility] | [address] | [place], [place] | | | DOM POINT OF CARE | [address] | [phone] | | | TESTS | | | | + + + + + SURGICAL PATHOLOGY (10/28/2019 5:08 PM PDT) + + + + + + | Component | Value | Ref Range | Performed | Pathologist | | | | | At | Signature | + + + + + + | Clinical | left lower lobe, | | [facility] | | | History | superior segment lung | | DEPARTMENT | | | | nodule, biopsy proven | | OF | | | | adenocarcinoma. No | | PATHOLOGY | | | | other suspicious disease | | | | | | on CT Chest or PET. | | | | + + + + + + | Final | A. Level 7, FS biopsy: | | [facility] | Electronically | | Pathologic | Three lymph nodes | | DEPARTMENT | signed by Satish | | Diagnosis | with no diagnostic | | OF | Larry Castro MD on | | | abnormality (0/3) | | PATHOLOGY | 11/02/2019 at | | | Negative for | | | 11:19 AM | | | malignancyB. 11L | | | | | | superior segment, FS | | | | | | biopsy: Two lymph | | | | | | nodes with no diagnostic | | | | | | abnormality (0/2) | | | | | | Negative for | | | | | | malignancyC. Left lower | | | | | | lobe superior segment, | | | | | | segmentectomy: | | | | | | Invasive adenocarcinoma, | | | | | | approx 1.7 cm, | | | | | | moderately-differentiate | | | | | | d Tumor present in | | | | | | subpleural position with | | | | | | associated | | | | | | fibroelastotic scar and | | | | | | pleural adhesion | | | | | | Negative for definitive | | | | | | vascular involvement | | | | | | Background emphysematous | | | | | | changes Bronchial, | | | | | | vascular, pleural and | | | | | | parenchymal surgical | | | | | | margins free of tumorD. | | | | | | Lymph node, 5 and 6, | | | | | | dissection: Two lymph | | | | | | nodes with no | | | | | | diagnostic abnormality | | | | | | (0/2) Negative for | | | | | | malignancyCase seen | | | | | | by:Paola Franco MD | | | | | | - Pathology | | | | | | ResidentDaarturo Castro MD | | | | | | | | | | | | | | | | | | PathologistPathology, | | | | | | [facility] | | | | | | University electronic | | | | | | signature indicates that | | | | | | I have personally | | | | | | reviewed all diagnostic | | | | | | slides, the gross and/or | | | | | | microscopic portion of | | | | | | this report and | | | | | | formulated the final | | | | | | diagnosis. | | | | + + + + + + | SYNOPTIC | LUNG (Lung - All | | [facility] | | | REPORTS | Specimens) SPECIMEN | | DEPARTMENT | | | | Procedure: | | OF | | | | Segmentectomy | | PATHOLOGY | | | | Specimen Laterality: | | | | | | Left TUMOR Tumor | | | | | | Site: Lower lobe of | | | | | | lung Histologic | | | | | | Type: Invasive | | | | | | adenocarcinoma, acinar | | | | | | predominant | | | | | | Histologic Grade: | | | | | | G2: Moderately | | | | | | differentiated Tumor | | | | | | Size: Greatest | | | | | | dimension in Centimeters | | | | | | (cm): 1.7 Centimeters | | | | | | (cm) Tumor Focality: | | | | | | Single tumor Tumor | | | | | | Extent: | | | | | | Visceral Pleura | | | | | | Invasion: Not | | | | | | identified Accessory | | | | | | Findings: | | | | | | Lymphovascular Invasion: | | | | | | Not identified | | | | | | MARGINS Margins: | | | | | | All margins are | | | | | | uninvolved by tumor | | | | | | Distance of Carcinoma in | | | | | | Situ from Closest | | | | | | Margin in Centimeters | | | | | | (cm): | | | | | | Closest Margin: | | | | | | Parenchymal LYMPH | | | | | | NODES Number of Lymph | | | | | | Nodes Involved: 0 | | | | | | Number of Lymph Nodes | | | | | | Examined: 7 | | | | | | PATHOLOGIC STAGE | | | | | | CLASSIFICATION (pTNM, | | | | | | AJCC 8th Edition) | | | | | | Primary Tumor (pT): | | | | | | pT1b Regional Lymph | | | | | | Nodes (pN): pN0 | | | | + + + + + + | Gross | Received are 4 specimens | | [facility] | | | Description | fresh in containers | | DEPARTMENT | | | | labeled with the | | OF | | | | patient's name (initials | | PATHOLOGY | | | | WS) and medical record | | | | | | number [id number]. Lymph | | | | | | node, level 7: Received | | | | | | for intraoperative | | | | | | consultation labeled | | | | | | "level 7-1" are 3 | | | | | | triana-brown fragments of | | | | | | tissue ranging in | | | | | | greatest dimension from | | | | | | 0.5 to 1.0 cm. The | | | | | | specimen is submitted | | | | | | entirely for frozen | | | | | | section diagnosis and | | | | | | resubmitted in cassette | | | | | | A1.B. Lymph node, 11L | | | | | | superior segment: | | | | | | Received for | | | | | | intraoperative | | | | | | consultation labeled "11 | | | | | | L superior segment-2" | | | | | | is a single triana-brown, | | | | | | soft fragment of tissue | | | | | | measuring 1.0 x 1.0 x | | | | | | 0.5 cm. The specimen is | | | | | | submitted entirely for | | | | | | frozen section diagnosis | | | | | | and resubmitted in | | | | | | cassette B1.C. Lung, | | | | | | left lower lobe superior | | | | | | segment FS on the | | | | | | bronchus: Received for | | | | | | intraoperative | | | | | | consultation labeled | | | | | | "left lower lobe | | | | | | superior segment FS | | | | | | bronchus-3" is a 95 g | | | | | | (post fixation), 9.2 x | | | | | | 7.2 x 4.0 cm portion of | | | | | | lung with a 8.6 cm | | | | | | staple line (inked | | | | | | blue). The pleural | | | | | | surface is olivares-purple | | | | | | slightly roughened with | | | | | | a focal area of | | | | | | puckering (inked | | | | | | orange). The bronchial | | | | | | margin is shaved and | | | | | | submitted entirely for | | | | | | frozen section | | | | | | diagnosis. The specimen | | | | | | is serially sectioned | | | | | | to show a 1.7 x 1.5 x | | | | | | 1.4 cm olivares-white, | | | | | | moderately | | | | | | circumscribed, indurated | | | | | | lesion that comes | | | | | | within 0.1 cm of the | | | | | | pleural surface, 1.5 cm | | | | | | of the parenchymal | | | | | | margin and 2.5 cm of the | | | | | | bronchial and vascular | | | | | | resection margins. No | | | | | | bronchial or vascular | | | | | | involvement is present. | | | | | | The remaining parenchyma | | | | | | is red-purple and | | | | | | spongy; no satellite | | | | | | lesions are identified. | | | | | | No lymph nodes are | | | | | | identified. | | | | | | Guardian Ad Litem sections | | | | | | are submitted. C1, | | | | | | frozen section remnant, | | | | | | bronchial margin en | | | | | | faceC2, vascular | | | | | | margins, en faceC3, | | | | | | lesion to nearest | | | | | | parenchymal marginC4-C7, | | | | | | remainder of | | | | | | lesionC8-C9, | | | | | | unremarkable | | | | | | parenchymaD. Lymph node, | | | | | | 5 and 6: Received | | | | | | labeled "5 and 6-4" is a | | | | | | single red-black, | | | | | | irregular fragment of | | | | | | tissue measuring 0.6 cm | | | | | | in greatest dimension. | | | | | | The specimen is | | | | | | submitted entirely in | | | | | | cassette D1.([id number]) | | | | + + + + + + | Intraoperat | Frozen section | | [facility] | | | serge use | diagnosis: A1. Lymph | | DEPARTMENT | | | only - | node. level 7: Negative | | OF | | | Final | for carcinomaFrozen | | PATHOLOGY | | | diagnosis | section pathologist(s): | | | | | listed | Natalie Howie Lemons, | | | | | separately | ROHAN ERAZO | | | | | | | | | | | | Pathology Resident | | | | | | Shabbir Ramirez MD, PhD | | | | | | / PathologistPathology, | | | | | | [facility] | | | | | | University5:30 PM | | | | | | Frozen section | | | | | | diagnosis: B1. Lymph | | | | | | node. 11L superior | | | | | | segment: Negative for | | | | | | carcinoma Frozen section | | | | | | pathologist(s): Natalie | | | | | | Howie Lemons MD, | | | | | | ROHAN | | | | | | | | | | | | Pathology Resident | | | | | | Shabbir Ramirez MD, PhD | | | | | | / PathologistPathology, | | | | | | [facility] | | | | | | University5:42 PM | | | | | | Frozen section | | | | | | diagnosis: C1. Lung. | | | | | | left lower lobe superior | | | | | | segment FS on the | | | | | | bronchus: Bronchial | | | | | | margin negative for | | | | | | carcinoma Frozen section | | | | | | pathologist(s): Natalie | | | | | | Howie Lemons MD, | | | | | | MBBS | | | | | | | | | | | | Pathology Resident | | | | | | Shabbir Ramirez MD, PhD | | | | | | / PathologistPathology, | | | | | | [facility] | | | | | | [place]5:58 PM | | | | + + + + + + | Ancillary | Analyte specific | | [facility] | | | Information | reagents are used in | | DEPARTMENT | | | | many laboratory tests | | OF | | | | necessary for standard | | PATHOLOGY | | | | medical care. This test | | | | | | was developed and its | | | | | | performance | | | | | | characteristics | | | | | | determined by [facility] | | | | | | laboratories. It has not | | | | | | been cleared or | | | | | | approved by the [place] Food | | | | | | and Drug Administration | | | | | | (FDA). FDA does not | | | | | | require this test to go | | | | | | through premarket FDA | | | | | | review. This test is | | | | | | used for clinical | | | | | | purposes. It should not | | | | | | be regarded as | | | | | | investigational or for | | | | | | research. This | | | | | | laboratory is certified | | | | | | under the Clinical | | | | | | Laboratory Improvement | | | | | | Amendments (CLIA) as | | | | | | qualified to perform | | | | | | high complexity clinical | | | | | | laboratory testing. If | | | | | | immunohistochemical | | | | | | analysis (IHC) was | | | | | | performed concurrently | | | | | | with flow cytometry, the | | | | | | IHC was done to allow | | | | | | assessment of | | | | | | immunoarchitecture, | | | | | | which is not supplied by | | | | | | flow cytometry. Flow | | | | | | cytometry enables better | | | | | | assessment of clonality | | | | | | and antigen aberrancy | | | | | | than IHC. Appropriate | | | | | | positive controls and/or | | | | | | negative controls were | | | | | | used for all stains, | | | | | | including | | | | | | immunohistochemical | | | | | | stains, special stains, | | | | | | and in situ | | | | | | hybridization, and these | | | | | | reacted appropriately. | | | | + + + + + + + + | Specimen | + + | Tissue - Structure | | of lymph node (body | | structure) | + + | Tissue - Structure | | of lymph node (body | | structure) | + + | Tissue - Lung | | structure (body | | structure) | + + | Tissue - Structure | | of lymph node (body | | structure) | + + + + + + + | Performing | Address | City/State/Zipcode | Phone Number | | Organization | | | | + + + + + | [facility] | [address] | [place] [address] | | | PATHOLOGY | [address] | | | + + + + + CAPILLARY BLOOD GLUCOSE (NO CHG), POC (10/28/2019 10:59 AM PDT) + +---------+ + + + | Component | Value | Ref Range | Performed | Pathologist | | | | | At | Signature | + +---------+ + + + | BLOOD | 110 (H) | 70 - 99 mg/dL | [facility] - | | | GLUCOSE, | | | [facility] | | | POC | | | [facility] | | | | | | OF CARE | | | | | | TESTS | | + +---------+ + + + + + | Specimen | + + | Blood | + + + + + + + | Performing | Address | City/State/Zipcode | Phone Number | | Organization | | | | + + + + + | [facility] | [address] | [place], [place] | | | [facility] CARE | [address] | [phone] | | | TESTS | | | | + + + + + INTRAPROCEDURE IMAGING (10/28/2019 10:23 AM PDT) + + | Specimen | + + | | + + + + + | Narrative | Performed At | + + + | See admission or procedure notes for details of any intraprocedure | [facility] | | images obtained. | RADIOLOGY | + + + + +---------+ + + | Performing | Address | City/State/Zipcode | Phone Number | | Organization | | | | + +---------+ + + | [facility] | | | | + +---------+ + + CARDIOLOGY (10/28/2019 12:00 AM PDT) + + + | Narrative | Performed At | + + + | | | + + + CARDIOLOGY (10/28/2019 12:00 AM PDT) + + + | Narrative | Performed At | + + + | | | + + + CARDIOLOGY (10/28/2019 12:00 AM PDT) + + + | Narrative | Performed At | + + + | | | + + + CARDIOLOGY (10/28/2019 12:00 AM PDT) + + + | Narrative | Performed At | + + + | | | + + + COVID-19 (10/26/2019 2:56 PM PDT) + + + + + + | Component | Value | Ref Range | Performed | Pathologist | | | | | At | Signature | + + + + + + | COVID-19 | Not Detected | Not Detected | [facility] - | | | EXTERNAL | | | ADULT | | | RESULTS | | | ENDOCRINOLO | | | | | | [facility] | | + + + + + + | METHOD OF | Paper | | [facility] - | | | COMMUNICATI | | | ADULT | | | ON | | | ENDOCRINOLO | | | | | | GY | | + + + + + + | TESTING | [facility] | | [facility] - | | | LOCATION | [facility]: [facility] | | ADULT | | | | listed as Resulting lab | | ENDOCRIN[facility] | | | | d/t One [facility] | | [facility] | | | | not listed as a lab | | | | | | name. | | | | + + + + + + + + | Specimen | + + | | + + + + + + + | Performing | Address | City/State/Zipcode | Phone Number | | Organization | | | | + + + + + | [facility] | [address] | [place] [address] | | | ENDOCRINOLOGY | [address] | | | + + + + + documented in this encounter Visit Diagnoses + + | Diagnosis | + + | Primary cancer of left lower lobe of lung (HCC) - Primary | + + | Neoplasm Neoplasm of unspecified nature, site unspecified | + + documented in this encounter Administered Medications + +--------+ + +------+------+ | Medication Order | MAR | Action | Dose | Rate | Site | | | Action | Date | | | | + +--------+ + +------+------+ | acetaminophen (TYLENOL) tablet | Given | 10/28/19 | 1,000 mg | | | | 1,000 mg 1,000 mg, oral, | | 20 10:46 | | | | | PREPROCEDURE ONCE, 1 dose, | | AM PDT | | | | | Starting Sat10/28/19 at 1023, | | | | | | | Until Sat10/28/19 at 1046 | | | | | | + +--------+ + +------+------+ +---+---+ | | | +---+---+ + +-------+ +--------+---+---+ | acetaminophen (TYLENOL) tablet | Given | 11/01/19 | 650 mg | | | | 650 mg 650 mg, oral, EVERY 4 | | 20 6:26 | | | | | HOURS WHILE AWAKE, First dose | | AM PDT | | | | | (after last modification) on Sat | | | | | | | 10/29/19 at 1400, Until | | | | | | | Discontinued | | | | | | + +-------+ +--------+---+---+ +-------+ +--------+---+---+ | Given | 10/31/19 | 650 mg | | | | | 20 8:56 | | | | | | PM PDT | | | | +-------+ +--------+---+---+ | Given | 10/31/19 | 650 mg | | | | | 20 6:11 | | | | | | PM PDT | | | | +-------+ +--------+---+---+ +---+---+ | | | +---+---+ + +-------+ +-------+---+---+ | aspirin EC tablet 81 mg 81 mg, | Given | 11/01/19 | 81 mg | | | | oral, DAILY, First dose on Sat | | 20 8:59 | | | | | 10/29/19 at 0900, Until | | AM PDT | | | | | Discontinued | | | | | | + +-------+ +-------+---+---+ +-------+ +-------+---+---+ | Given | 10/31/19 | 81 mg | | | | | 20 9:08 | | | | | | AM PDT | | | | +-------+ +-------+---+---+ | Given | 10/30/19 | 81 mg | | | | | 20 9:20 | | | | | | AM PDT | | | | +-------+ +-------+---+---+ +---+---+ | | | +---+---+ + + + +---+---------+---+ | bupivacaine 0.05 | Rate/Dos | 10/31/19 | | 6 mL/hr | | | %-HYDROmorphone 10 mcg/mL | e Verify | 20 11:00 | | | | | epidural infusion epidural, | | AM PDT | | | | | CONTINUOUS, Starting 10/28/19 | | | | | | | at 1600, Until 10/31/19 at | | | | | | | 1559 | | | | | | + + + +---+---------+---+ + + +---+---------+---+ | Rate/Dose Verify | 10/31/19 | | 6 mL/hr | | | | 20 7:00 | | | | | | AM PDT | | | | + + +---+---------+---+ | Rate/Dose Verify | 10/31/19 | | 6 mL/hr | | | | 20 4:21 | | | | | | AM PDT | | | | + + +---+---------+---+ +---+---+ | | | +---+---+ + +-------+ +-------+---+---------+ | enoxaparin (LOVENOX) injection | Given | 10/31/19 | 40 mg | | Abdomen | | 40 mg 40 mg, subcutaneous, EVERY | | 20 8:56 | | | | | EVENING, First dose on Coby | | PM PDT | | | | | 10/29/19 at 2100, Until | | | | | | | Discontinued | | | | | | + +-------+ +-------+---+---------+ +-------+ +-------+---+---------+ | Given | 10/30/19 | 40 mg | | Abdomen | | | 20 9:01 | | | | | | PM PDT | | | | +-------+ +-------+---+---------+ | Given | 10/29/19 | 40 mg | | Abdomen | | | 20 10:29 | | | | | | PM PDT | | | | +-------+ +-------+---+---------+ +---+---+ | | | +---+---+ + +-------+ +--------+---+---+ | gabapentin (NEURONTIN) capsule | Given | 10/28/19 | 600 mg | | | | 600 mg 600 mg, oral, | | 20 10:46 | | | | | PREPROCEDURE ONCE, 1 dose, | | AM PDT | | | | | Starting Sat10/28/19 at 1023, | | | | | | | Until Sat10/28/19 at 1046 | | | | | | + +-------+ +--------+---+---+ +---+---+ | | | +---+---+ + +-------+ +-------+---+---+ | hydroCHLOROthiazide | Given | 11/01/19 | 25 mg | | | | (HYDRODIURIL) tablet 25 mg 25 | | 20 8:59 | | | | | mg, oral, DAILY, First dose on | | AM PDT | | | | | 10/31/19 at 0900, Until | | | | | | | Discontinued | | | | | | + +-------+ +-------+---+---+ +-------+ +-------+---+---+ | Given | 10/31/19 | 25 mg | | | | | 20 9:08 | | | | | | AM PDT | | | | +-------+ +-------+---+---+ + +---+ | | | + +---+ | HYDROmorphone (DILAUDID) | | | injection 0.2-0.5 mg 0.2-0.5 mg, | | | intravenous, EVERY 6 HOURS | | | NEEDED, Starting 10/31/19 at | | | 0901, Until 11/01/19 at 1640, | | | pain not covered by PO pain | | | medications | | + +---+ | | | + +---+ + +-------+ +------+---+---+ | HYDROmorphone (DILAUDID) tablet | Given | 10/31/19 | 2 mg | | | | 2-4 mg 2-4 mg, oral, EVERY 3 | | 20 11:06 | | | | | HOURS NEEDED, Starting Sat | | PM PDT | | | | | 10/31/19 at 1003, Until Sun | | | | | | | 11/01/19 at 1640, moderate pain | | | | | | + +-------+ +------+---+---+ +-------+ +------+---+---+ | Given | 10/31/19 | 2 mg | | | | | 20 4:58 | | | | | | PM PDT | | | | +-------+ +------+---+---+ | Given | 10/31/19 | 2 mg | | | | | 20 10:21 | | | | | | AM PDT | | | | +-------+ +------+---+---+ +---+---+ | | | +---+---+ + + + +---+---+---+ | lactated ringers (LR) infusion | given by | 10/28/19 | | | | | 10 mL/hr, intravenous, PROCEDURE | | 20 4:20 | | | | | CONTINUOUS, Starting 10/28/19 | anesthes | PM PDT | | | | | at 1030, Until Wed 20 at | iology | | | | | | 2059 | | | | | | + + + +---+---+---+ +---------+ + + +---+ | New Bag | 10/28/19 | 10 mL/hr | 10 mL/hr | | | | 20 10:47 | | | | | | AM PDT | | | | +---------+ + + +---+ +---+---+ | | | +---+---+ + + + + + +---+ | lactated ringers (LR) infusion | Rate/Dos | 10/29/19 | 50 mL/hr | 50 mL/hr | | | 50 mL/hr, intravenous, | e Verify | 20 1:06 | | | | | CONTINUOUS, Starting Sat10/28/19 | | AM PDT | | | | | at 2115, Until Coby 10/29/19 at | | | | | | | 0709 | | | | | | + + + + + +---+ +---------+ + + +---+ | New Bag | 10/28/19 | 50 mL/hr | 50 mL/hr | | | | 20 9:45 | | | | | | PM PDT | | | | +---------+ + + +---+ +---+---+ | | | +---+---+ + +-------+ +------+---+---+ | melatonin tablet 3 mg 3 mg, | Given | 10/29/19 | 3 mg | | | | oral, AT BEDTIME NEEDED, | | 20 10:29 | | | | | Starting 10/28/19 at 2114, | | PM PDT | | | | | Until 11/01/19 at 1640, | | | | | | | insomnia | | | | | | + +-------+ +------+---+---+ +-------+ +------+---+---+ | Given | 10/28/19 | 3 mg | | | | | 20 10:47 | | | | | | PM PDT | | | | +-------+ +------+---+---+ +---+---+ | | | +---+---+ + +-------+ +--------+---+---+ | metoprolol tartrate (LOPRESSOR) | Given | 11/01/19 | 100 mg | | | | tablet 100 mg 100 mg, oral, | | 20 8:59 | | | | | TWICE DAILY, First dose on Coby | | AM PDT | | | | | 10/29/19 at 0900, Until | | | | | | | Discontinued | | | | | | + +-------+ +--------+---+---+ +-------+ +--------+---+---+ | Given | 10/31/19 | 100 mg | | | | | 20 8:56 | | | | | | PM PDT | | | | +-------+ +--------+---+---+ | Given | 10/31/19 | 100 mg | | | | | 20 9:08 | | | | | | AM PDT | | | | +-------+ +--------+---+---+ +---+---+ | | | +---+---+ + +-------+ + +---+---+ | multivitamin-minerals 1 tablet | Given | 11/01/19 | 1 tablet | | | | 1 tablet, oral, DAILY, First | | 20 8:59 | | | | | dose on [facility] 10/29/19 at 0900, | | AM PDT | | | | | Until Discontinued | | | | | | + +-------+ + +---+---+ +-------+ + +---+---+ | Given | 10/31/19 | 1 tablet | | | | | 20 9:08 | | | | | | AM PDT | | | | +-------+ + +---+---+ | Given | 10/30/19 | 1 tablet | | | | | 20 9:20 | | | | | | AM PDT | | | | +-------+ + +---+---+ + +---+ | | | + +---+ | naloxone (NARCAN) 1,000 mcg in | | | sodium chloride (NS) 0.9 % 250 mL | | | (4 mcg/mL) IV infusion 0.25 | | | mcg/kg/hr | | | 91.2 kg Dosing weight (5.7 | | | mL/hr), intravenous, NEEDED | | | CONTINUOUS, Starting 10/28/19 | | | at 1231, Until 11/01/19 at | | | 1640, itching | | + +---+ | | | + +---+ | naloxone (NARCAN) injection | | | intravenous, NEEDED, Starting | | | 10/28/19 at 1231, Until Sun | | | 11/01/19 at 1640, over sedation | | + +---+ | | | + +---+ | ondansetron (ZOFRAN) injection | | | 4 mg 4 mg, intravenous, EVERY 12 | | | HOURS NEEDED, Starting Wed | | | 10/28/19 at 1231, Until Sun | | | 11/01/19 at 1640, n/v, if unable | | | to take oral form of medication | | + +---+ | | | + +---+ + +-------+ +--------+---+---+ | potassium chloride (ART Gallardo) | Given | 10/29/19 | 40 mEq | | | | tablet 40 mEq 40 mEq, oral, | | 20 8:11 | | | | | ONCE, 1 dose, [facility] 10/29/19 at 0745 | | AM PDT | | | | + +-------+ +--------+---+---+ +---+---+ | | | +---+---+ + +-------+ + +---+---+ | senna-docusate (SENOKOT S) | Given | 10/31/19 | 1 tablet | | | | 8.6-50 mg 1 tablet 1 tablet, | | 20 8:56 | | | | | oral, TWICE DAILY, First dose on | | PM PDT | | | | | 10/28/19 at 2115, Until | | | | | | | Discontinued | | | | | | + +-------+ + +---+---+ +-------+ + +---+---+ | Given | 10/30/19 | 1 tablet | | | | | 20 9:20 | | | | | | AM PDT | | | | +-------+ + +---+---+ | Given | 10/29/19 | 1 tablet | | | | | 20 8:28 | | | | | | PM PDT | | | | +-------+ + +---+---+ +---+---+ | | | +---+---+ + +-------+ +-------+---+---+ | simvastatin (ZOCOR) tablet 20 | Given | 10/31/19 | 20 mg | | | | mg 20 mg, oral, EVERY EVENING, | | 20 9:11 | | | | | First dose on Sat10/29/19 at | | PM PDT | | | | | 2100, Until Discontinued | | | | | | + +-------+ +-------+---+---+ +-------+ +-------+---+---+ | Given | 10/30/19 | 20 mg | | | | | 20 9:01 | | | | | | PM PDT | | | | +-------+ +-------+---+---+ | Given | 10/29/19 | 20 mg | | | | | 20 8:28 | | | | | | PM PDT | | | | +-------+ +-------+---+---+ +---+---+ | | | +---+---+ + +-------+ + +---+---+ | vancomycin (VANCOCIN) IV 1,500 | Given | 10/29/19 | 1,500 mg | | | | mg 1,500 mg, intravenous, EVERY | | 20 1:45 | | | | | 12 HOURS, 2 doses, First dose on | | AM PDT | | | | | Coby 10/29/19 at 0200, Last dose on | | | | | | | Coby 10/29/19 at 1400 | | | | | | + +-------+ + +---+---+ +---+---+ | | | +---+---+ + +-------+ +------+---+---+ | zolpidem (AMBIEN) tablet 5 mg | Given | 10/31/19 | 5 mg | | | | 5 mg, oral, ONCE, 1 dose, Sat | | 20 11:06 | | | | | 10/31/19 at 2200 | | PM PDT | | | | + +-------+ +------+---+---+ +---+---+ | | | +---+---+ documented in this encounter
--- OUTSIDE RECORDS SUMMARY | ~2019-11-14 | XMS | Encounter Summary ---
Demographics + + + | Address | [address] | | | [place] [address] | + + + | Home Phone | | + + + | Preferred Language | Unknown | + + + | Marital Status | | + + + | Samaritan Affiliation | NRP | + + + | Race | or | + + + | Ethnic Group | Not or | + + + Author + + + | Author | [facility] [employer] [facility] | + + + | Organization | [facility] [employer] [facility] | + + + | Address | Unknown | + + + | Phone | Unavailable | + + + Support + + + + + | Name | Relationship | Address | Phone | + + + + + | Kim Sigo | ECON | [address] | | | | | [place] | | | | | [id number] | | + + + + + | Key Escobedo | ECON | Unknown | | + + + + + | Cathleen Escobedo | ECON | Unknown | | + + + + + Care Team Providers + +------+ + | Care Slip Cover Operator Name | Role | Phone | + +------+ + | Anupama Juárez | PCP | | + +------+ + Encounter Details +--------+ + + + + | Date | Type | Department | Care Team | Description | +--------+ + + + + | 10/26/ | Telephone | Cardiothoracic | Enrike Soler, | | | 2019 | | [facility] | PA-C [address] | | | | | [address] | [facility] | | | | | Physician's | [place], [place] | | | | | Pavilion, 2nd floor | [address] | | | | | [place], [place] | [phone] | | | | | [address] | | | | | | [phone] | | | +--------+ + + + [...] [address] | | | | | | [place] | | | | | | [address] | | | | | | [phone] | | | | | | | | +--------+ + + + + documented as of this encounter Visit Diagnoses Not on filedocumented in this encounter"
--- OUTSIDE RECORDS SUMMARY | ~2019-11-14 | XMS | Encounter Summary ---
Demographics + + + | Address | [address] | | | [place] [address] | + + + | Home Phone | | + + + | Preferred Language | Unknown | + + + | Marital Status | | + + + | Quaker Affiliation | Unknown | + + + | Race | Unknown | + + + | Ethnic Group | Unknown | + + + Author + + + | Author | [facility] | | | and [place] | + + + | Organization | [facility] | | [...] [place] | | | | | [address] | | + + + + + Care Team Providers + +------+ + | Care Assembler Surgical Garment Name | Role | Phone | + +------+ + | Raiza Slaughter PA-C | PCP | | + +------+ + Reason for Visit + +--------+ + | Reason | Onset | Comments | | | Date | | + +--------+ + | Follow-up(Procedure) | 09/23/ | | | | 2020 | | + +--------+ + Encounter Details +--------+ + + + + | Date | Type | Department | Care Team | Description | +--------+ + + + + | 09/23/ | Telephone | [facility] | Satish Louise, | Follow-up(Procedure) | | 2019 | | INTERVENTIONAL | MD [address] | | | | | RADIOLOGY [address] | [address] | | | | | [address] [place] | [place] [address] | | | | | [place] | [phone] | | | | | [address] | | | | | | [phone] | | | +--------+ + + + [...] this encounter Miscellaneous Notes Telephone Encounter - Yulisa Ly, Territory Manager - 09/24/2019 10:08 AM PDTCalle d pt to see how he was doing after his procedure. PT states he is still coughing up blood. I let him know that is normal and will continue to happen for the next few days. Pt states th at the blood is getting thinner every time. I let pt know that he may remove his bandage in 24-48 hours from his procedure and he may shower 24 hours from his procedure as well. I inst ructed him to NOT scrub the area and just let the water bead off of it. I also let pt know t hat Dr. Hayes's office will likely be following up with him in regards to the results of the biopsy and that if he has any questions or concerns, he may reach out to our office. Pt stated understanding. Electronically signed by Yulisa Ly, Territory Manager at 0 09/24/2019 10:13 AM PDTdocumented in this encounter Plan of Treatment +--------+---------+ + + + | Date | Type | Specialty | Care Team | Description | +--------+---------+ + + + | 01/26/ | Office | Cardiology | Iris Malone, | | | 2019 | Visit | | MD Erasmo ESCOTO | | | | | | [address], [place] | | | | | | [address] | | | | | | | | +--------+---------+ + + + documented as of this encounter Visit Diagnoses Not on filedocumented in this encounter"
--- OUTSIDE RECORDS SUMMARY | ~2019-11-14 | XMS | Encounter Summary ---
Demographics + + + | Address | [address] | | | [place] [address] | + + + | Home Phone | | + + + | Preferred Language | Unknown | + + + | Marital Status | | + + + | Restorationism Affiliation | NRP | + + + | Race | or | + + + | Ethnic Group | Not or | + + + Author + + + | Author | [facility] [employer] [facility] | + + + | Organization | [facility] [employer] [facility] | + + + | Address | Unknown | + + + | Phone | Unavailable | + + + Support + + + + + | Name | Relationship | Address | Phone | + + + + + | Kim Sigo | ECON | [address] | | | | | [place] | | | | | [address] | | + + + + + | Key Escobedo | ECON | Unknown | | + + + + + | Cathleen Escobedo | ECON | Unknown | | + + + + + Care Team Providers + +------+ + | Care Pharmacy Affairs Assistant Name | Role | Phone | + [...] + + | 10/27/ | Hospital | [facility] [address] | Ronald Barth MD | | | 2020 - | Encounter | [address] [email or web address] | [address] | | | | | [facility] | [address] | | | 10/31/ | | [place], [place] | [place] | | | 2019 | | [address] | [address] | | | | | [phone] | [phone] | | | | | | | [...] Attending: Ronald Barth MD Summary Author: Rody Weinstein PA-C Date of admission: 10/28/2019 Date of [...] Medications: Martita Escobedo III Home Medication Instructions EVA:[id number] Printed on:11/01/19 0822 Medication Information acetaminophen (TYLENOL [...] part of your post-operative visit either via [employer] ([employer]) or to the email address [email or web address] with the subject "secure: wound check" with [...] catheter to come out. Dean Guevara MD [facility] [address] [email or web address] [phone] ean Guevara MD - 10/31/2019 1:22 PM PDT INPATIENT ADULT PAIN SERVICE NEURAXIAL BLOCK PROGRESS NOTE 10/31/2019 Author: Dean Guevaar MD Pain Service Attending Physician: Jon Lozano [...] oxycodone for oral agents Dean Guevara MD [facility] [address] [email or web address] [phone] Associated attestation - Jon Lozano MD - 11/02/2019 5:18 PM PDTI saw and evaluated rogers Escobedo III with trainee: Dr. Guevara . I have reviewed the trainee's note and I a gree with the plan of care as documented. Jon Lozano MD Adult Acute Pain Service [facility] Pager#: [phone] Email: [email or web address] Rody Weinstein PA-C - 10/31/2019 10:07 AM [...] not have additional comments. Agnes Siegel MDWaHernán alfred MD - 10/30/2019 5:50 AM PDTFormatting of [...] regimen - Dispo: Ongoing [place] care Plan (iwh-fwqfqymf-aibkjiq issues); the brief history and exam findings [...] Yudelka Cope NP Adult Pain Service Pager [phone] Team Pager [phone] Hernán Dimas MD - 10/29/2019 6:51 AM [...] regimen - Dispo: Ongoing [place] care Plan (nqc-xccupjpk-lsvhwqj issues); the brief history and exam findings [...] Rd | | | | | | [place], [place] | | | | | | [address] | | | | | | [phone] | | | | | | | [...] Note | + + | Service Account, [employer] In Interface - 10/31/2019 3:03 PM [...] At | + + + | EXAM: VT CHEST 1 VIEW HISTORY: s/p L VATS [...] Interface - 10/31/2019 5:28 PM PDT EXAM: VT CHEST 1 | | VIEW HISTORY: s/p [...] [facility] | [address] | [place] [address] | | | SERVICES, CORE | PARK [...] | | | LABORATORY | | | [place] | | | SERVICES, | | | [...] MDRD equation recommended by the National | [facility] | | Kidney Disease Education Program. Estimated [...] | + + + + + | [facility] | [address] | [place] [address] | | | SERVICES, CORE | ANTOINE [...] At | + + + | EXAM: VT CHEST 1 VIEW HISTORY: s/p left thoracotomy, [...] Interface - 10/29/2019 9:50 AM PDT EXAM: VT CHEST 1 | | VIEW HISTORY: s/p [...] [facility] | [address] | [place] [address] | | | SERVICES, CORE | PARK [...] | | | LABORATORY | | | [place] | | | SERVICES, | | | [...] MDRD equation recommended by the National | [facility] | | Kidney Disease Education Program. Estimated [...] | + + + + + | [facility] | [address] | [place] [address] | | | BRADFORD, RUDY | ANTOINE [...] At | + + + | EXAM: VT CHEST 1 VIEW HISTORY: s/p left thoracotomy, [...] Interface - 10/29/2019 9:49 AM PDT EXAM: VT CHEST 1 | | VIEW HISTORY: s/p [...] [facility] | [address] | [place], [place] | | | DOM POINT OF CARE | [address] | [address] | | | TESTS | | | [...] PathologistPathology, | | | | | | [facility] | | | | | | University [...] | | | | | | number [id number]. Lymph | | | | | | [...] identified. | | | | | | Sterile Supply Technician sections | | | | | | [...] | | | | | | cassette D1.([id number]) | | | | + + + [...] PathologistPathology, | | | | | | [facility] | | | | | | University5:30 [...] PathologistPathology, | | | | | | [facility] | | | | | | [...] PathologistPathology, | | | | | | [facility] | | | | | | Wells5:58 PM | | | | + + [...] | + + + + + | [facility] | [address] | [place] [address] | | | PATHOLOGY | [address] [...] [facility] | [address] | [place], [place] | | | EDMUNDO FERNANDES OF CARE | [address] | [address] | | | TESTS | | | [...] ENDOCRINOLO | | | | d/t [facility] | | [place] | | | | [...] ADULT | [address] | [place] [address] | | | ENDOCRINOLOGY | [address] [...] | | | | | dose on [facility] 10/29/19 at 0900, | | AM [...] | | | | ONCE, 1 dose, [facility] 10/29/19 at 0745 | | AM [...]
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
--- OUTSIDE RECORDS SUMMARY | ~2019-11-14 | XMS | Encounter Summary ---
Demographics + + + | Address | [address] | | | [place] [address] | + + + | Home Phone | | + + + | Preferred Language | Unknown | + + + | Marital Status | | + + + | Methodist Affiliation | Unknown | + + + | Race | Unknown | + + + | Ethnic Group | Unknown | + + + Author + + + | Author | [facility] | | | and [place] | + + + | Organization | [facility] | | | and [...] [place] | | | | | [address] | | + + + + + Care Team Providers + +------+ + | Care Button Decorating Machine Operator Name | Role | Phone | + +------+ + | Stanley Kinney PA-C | PCP | | + +------+ + Encounter Details +--------+ + + + + | Date | Type | Department | Care Team | Description | +--------+ + + + + | 01/09/ | Orders Only | [facility] | Iris Malone, | Thoracic aortic | | 2019 | | CARDIOLOGY [facility] | [address] | aneurysm without | | | | [address] | [place], [place] | rupture (HCC) | | | | [address] | [address] | (Primary Dx); | | | | [place] | | Essential | | | | [address] | | hypertension; Mixed | | | | [phone] | | hyperlipidemia | +--------+ + + [...] | | | | | [place], [place] | | | | | | [address] | | | | | | | | +--------+---------+ + + + + +------+--------+ + + | Name | Type | Priori | Associated Diagnoses | Order Schedule | | | | ty | | | + +------+--------+ + + | Misc Lab Referral | Lab | Routin | Thoracic aortic | 1 Occurrences | | | | e | aneurysm without | starting 01/09/2019 | | | | | rupture (HCC) | until 02/19/2019 | | | | | Essential | | | | | | hypertension Mixed | | | | | | hyperlipidemia | | + +------+--------+ + + documented as of this encounter Visit Diagnoses + + | Diagnosis | + + | Thoracic aortic aneurysm without rupture (HCC) - Primary Thoracic aneurysm without | | mention of rupture | + + | Essential hypertension Unspecified essential hypertension | + + | Mixed hyperlipidemia | + + documented in this encounter"
--- OUTSIDE RECORDS SUMMARY | ~2019-11-14 | XMS | Encounter Summary ---
Demographics + + + | Address | [address] | | | [place] [address] | + + + | Home Phone | | + + + | Preferred Language | Unknown | + + + | Marital Status | | + + + | Temple Affiliation | NRP | + + + | Race | or | + + + | Ethnic Group | Not or | + + + Author + + + | Author | [facility] | + + + | Organization | [facility] [employer] [facility] | + + + | Address | Unknown | + + + | Phone | Unavailable | + + + Support + + + + + | Name | Relationship | Address | Phone | + + + + + | Ikm Sigo | ECON | [address] | | | | | [place] | | | | | [address] | | + + + + + | Key Escobedo | ECON | Unknown | | + + + + + | Cathleen Escobedo | ECON | Unknown | | + + + + + Care Team Providers + +------+ + | Care Director College Name | Role | Phone | + [...] | | | [address] | [facility] | | | | | Physician's | [place], [place] | | | | | Pavilion, 2nd floor | [address] | | | | | [place], [place] | [phone] | | | | | [address] | | | | | | [phone] | | | +--------+ + + + [...] [address] | | | | | | [place] | | | | | | [address] | | | | | | [phone] | | | | | | | | +--------+ + + + + documented as of this encounter Visit Diagnoses Not on filedocumented in this encounter"
--- OUTSIDE RECORDS SUMMARY | ~2019-11-14 | XMS | Encounter Summary ---
Demographics + + + | Address | [address] | | | [place] [address] | + + + | Home Phone | | + + + | Preferred Language | Unknown | + + + | Marital Status | | + + + | Caodaism Affiliation | NRP | + + + | Race | or | + + + | Ethnic Group | Not or | + + + Author + + + | Author | [facility] | + + + | Organization | [facility] | + + + | Address | Unknown | + + + | Phone | Unavailable | + + + Support + + + + + | Name | Relationship | Address | Phone | + + + + + | Kim Sigo | ECON | [address] | | | | | [place] | | | | | [address] | | + + + + + | Key Escobedo | ECON | Unknown | | + + + + + | Cathleen Escobedo | ECON | Unknown | | + + + + + Care Team Providers + +------+ + | Care Family Physician Name | Role | Phone | + +------+ + | Anupama Juárez | PCP | | + +------+ + Encounter Details +--------+ + + + + | Date | Type | Department | Care Team | Description | +--------+ + + + + | 05/17/ | Sheriff | Cardiothoracic | Becky Jama, | Aortic aneurysm | | 2014 | | Surgery at [facility] [address] | PA-C [address] | ([facility]) (Primary Dx) | | | | [address] | [facility] [address] | | | | | Physician's | [place], [place] | | | | | [place], 2nd floor | [address] | | | | | [place], [place] | [phone] | | | | | [address] | | | | | | [phone] | | | +--------+ + + + [...] | 2019 | cyn | | [address] [facility] | | | | | | [address] | | | | | | [place], [place] | | | | | | [address] | | | | | | [phone] | | | | | | | | +--------+ + + + + documented as of this encounter Visit Diagnoses + + | Diagnosis | + + | Aortic aneurysm (HCC) - Primary Aortic aneurysm of unspecified site without mention | | of rupture | + + documented in this encounter"
--- OUTSIDE RECORDS SUMMARY | ~2019-11-14 | XMS | Encounter Summary ---
Demographics + + + | Address | [address] | | | [place] [address] | + + + | Home Phone | | + + + | Preferred Language | Unknown | + + + | Marital Status | | + + + | Evangelical Affiliation | NRP | + + + | Race | or | + + + | Ethnic Group | Not or | + + + Author + + + | Author | [facility] | + + + | Organization | [facility] | + + + | Address | Unknown | + + + | Phone | Unavailable | + + + Support + + + + + | Name | Relationship | Address | Phone | + + + + + | Kim Sigo | ECON | [address] | | | | | [place] | | | | | [address] | | + + + + + | Key Escobedo | ECON | Unknown | | + + + + + | Cathleen Escobedo | ECON | Unknown | | + + + + + Care Team Providers + +------+ + | Care Cnc Manager Name | Role | Phone | + +------+ + | Anupama Juárez | PCP | | + +------+ + Encounter Details +--------+ + + + + | Date | Type | Department | Care Team | Description | +--------+ + + + + | 10/11/ | Telephone | Cardiothoracic | Slade Cox NP | | | 2020 | | Surgery at [facility] [address] | [address] | | | | | [address] | [place], [place] | | | | | Physician's | [address] | | | | | [facility] floor | [phone] | | | | | [place], [place] | | | | | | [address] | | | | | | [phone] | | | +--------+ + + + [...] | 2019 | cyn | | [address] [facility] | | | | | | [address] | | | | | | [place], [place] | | | | | | [address] | | | | | | [phone] | | | | | | | | +--------+ + + + + documented as of this encounter Visit Diagnoses Not on filedocumented in this encounter"
--- OUTSIDE RECORDS SUMMARY | ~2019-11-14 | XMS | Encounter Summary ---
Demographics + + + | Address | [address] | | | [place] [address] | + + + | Home Phone | | + + + | Preferred Language | Unknown | + + + | Marital Status | | + + + | Jew Affiliation | NRP | + + + | Race | or | + + + | Ethnic Group | Not or | + + + Author + + + | Author | [facility] | + + + | Organization | [facility] | + + + | Address | Unknown | + + + | Phone | Unavailable | + + + Support + + + + + | Name | Relationship | Address | Phone | + + + + + | Kim Sigo | ECON | [address] | | | | | [place] | | | | | [address] | | + + + + + | Key Escobedo | ECON | Unknown | | + + + + + | Cathleen Escobedo | ECON | Unknown | | + + + + + Care Team Providers + +------+ + | Care Supervisor Veneer Name | Role | Phone | + +------+ + | Anupama Juárez | PCP | | + +------+ + Encounter Details +--------+ + + + + | Date | Type | Department | Care Team | Description | +--------+ + + + + | 09/21/ | Folder Seamer | Cardiothoracic | Chris Argueta, | Aortic aneurysm | | 2016 | | Surgery at [facility] [address] | PA-C [address] | without rupture, | | | | [address] | [address] | unspecified portion | | | | Physician's | [place], [place] | of aorta (HCC) | | | | [address], 2nd floor | [address] | (Primary Dx) | | | | [place], [place] | [phone] | | | | | [address] | | | | | | [phone] | | | +--------+ + + + [...] | 2019 | cyn | | [address] [facility] | | | | | | [address] | | | | | | [place], [place] | | | | | | [address] | | | | | | [phone] | | | | | | | | +--------+ + + + + documented as of this encounter Visit Diagnoses + + | Diagnosis | + + | Aortic aneurysm without rupture, unspecified portion of aorta (HCC) - Primary | + + documented in this encounter"
--- OUTSIDE RECORDS SUMMARY | ~2019-11-14 | XMS | Encounter Summary ---
Demographics + + + | Address | [address] | | | [place] [address] | + + + | Home Phone | | + + + | Preferred Language | Unknown | + + + | Marital Status | | + + + | Baptism Affiliation | NRP | + + + | Race | or | + + + | Ethnic Group | Not or | + + + Author + + + | Author | [facility] | + + + | Organization | [facility] | + + + | Address | Unknown | + + + | Phone | Unavailable | + + + Support + + + + + | Name | Relationship | Address | Phone | + + + + + | Kim Sigo | ECON | [address] | | | | | [place] | | | | | [address] | | + + + + + | Key Escobedo | ECON | Unknown | | + + + + + | Cathleen Escobedo | ECON | Unknown | | + + + + + Care Team Providers + +------+ + | Care Olive Grader Name | Role | Phone | + [...] | 2020 | Visit | Surgery at [facility] | [address] | left lower lobe of | | | | [address] | [address] | lung (HCC) (Primary | | | | Mailcode: Center | [place], [place] | Dx); Neoplasm | | | | for Health and | [address] | | | | | [facility], [address] | [phone] | | | | | [place], [place] | | | | | | [address] | | | | | | [phone] | | | +--------+---------+ + + + [...] 10/09/2019 11:30 AM PDT TELEPHONE VISIT Called [phone]--voice mailbox x --answered. Patient agrees to a [...] and reported separjamaica alford. As part of [employer] Quality Improvement Program, this case was reviewed [...] He would like to proceed. Lives in [place]. Needs Covid testing. Will schedule surgery for October 27 with tre Kidd October 25. Needs labs in [place] as well Ronald Barth MD The visit took place via telephone with the provider located at the distant site of [facility]. T he patient stated they were located at the originating site of home and were in the state of [place] at the time of the telephone visit. [...] | 2019 | cyn | | [address] [facility] | | | | | | [address] | | | | | | [place], [place] | | | | | | [address] | | | | | | [phone] | | | | | | | [...] 1.00 | 0.90 - 1.20 INR | [facility] | | | | | | LABORATORY [...] AUTUMN KAMARA | [address] | [place] [address] | | | SERVICES, CORE | PARK [...]
--- OUTSIDE RECORDS SUMMARY | ~2019-11-14 | XMS | Encounter Summary ---
Demographics + + + | Address | [address] | | | [place] [address] | + + + | Home Phone | | + + + | Preferred Language | Unknown | + + + | Marital Status | | + + + | Sabianism Affiliation | Unknown | + + + | Race | Unknown | + + + | Ethnic Group | Unknown | + + + Author + + + | Author | [facility] | | | and [place] | + + + | Organization | [facility] | | | [...] [place] | | | | | [address] | | + + + + + Care Team Providers + +------+ + | Care Director Of Software Development Name | Role | Phone | + +------+ + | Raiza Slaughter PA-C | PCP | | + +------+ + Encounter Details +--------+ + + + + | Date | Type | Department | Care Team | Description | +--------+ + + + + | 09/21/ | Telephone | [facility] | Emma Ellis, | | | 2019 | | [facility] | RN | | | | | [address] | | | | | | [place], [place] | | | | | | [address] | | | | | | [phone] | | | +--------+ + + + [...] Cardiology | Iris Malone, | | | 2020 | Visit | | MD Erasmo ESCOTO | | | | | | [place] | | | | | | [address] | | | | | | | | +--------+---------+ + + + documented as of this encounter Visit Diagnoses Not on filedocumented in this encounter"
--- OUTSIDE RECORDS SUMMARY | ~2019-11-14 | XMS | Encounter Summary ---
Demographics + + + | Address | [address] | | | [place] [address] | + + + | Home Phone | | + + + | Preferred Language | Unknown | + + + | Marital Status | | + + + | Anabaptism Affiliation | Unknown | + + + | Race | Unknown | + + + | Ethnic Group | Unknown | + + + Author + + + | Author | [facility] | | | and [place] | + + + | Organization | [facility] | [...] [place] | | | | | [address] | | + + + + + Care Team Providers + +------+ + | Care Creative Services Writer Name | Role | Phone | + +------+ + | Raiza Salughter PA-C | PCP | | + +------+ + Reason for Referral Evaluate & Treat (Routine) + + + + + + + | Status | Reason | Specialty | Diagnoses / | Referred By | Referred To | | | | | Procedures | Contact | Contact | + + + + + + + | Authorizatio | Specialty | Surgery / | Diagnoses | | Min General | | n not | Services | General | | [place], | Surgery [address] | | Required | Required | Surgery | Subcutaneous | [address] | [address] | | | | | lipoma | MD [address] | [address] | | | | | | [address] | [place], [place] | | | | | | AVE | [address] | | | | | | [place], | Phone: | | | | | | [place] [address] | [phone] | | | | | | Phone: | Fax: | | | | | | [phone] | [phone] | | | | | | Fax: | | | | | | | [phone] | | + + + + + + + Diagnostic/Screening (Routine) + +--------+ + + + + | Status | Reason | Specialty | Diagnoses / | Referred By | Referred To | | | | | Procedures | Contact | Contact | + +--------+ + + + + | Pending | | Radiology | Diagnoses | | [facility] | | Review | | | Mass of | [place], | REGIONAL | | | | | left lung | Rangdarielwamy | MEDICAL | | | | | Procedures | [address] | [address]ENTER [address] | | | | | CT Guided | [address] | [address] | | | | | Biopsy Lung | AVE | [place], [place] | | | | | Or | [place], | [address] | | | | | Mediastinum | [place] [address] | Phone: | | | | | | Phone: | [phone] | | | | | | [phone] | Fax: | | | | | | Fax: | [phone] | | | | | | [phone] | | + +--------+ + + + + Reason for Visit + + + | Reason | Comments | + + + | Advice Only | | + + + | Lung Cancer | | + + + Evaluate & Treat (Urgent) + + + + + + + | Status | Reason | Specialty | Diagnoses / | Referred By | Referred To | | | | | Procedures | Contact | Contact | + + + + + + + | Authorizatio | Specialty | Hematology | Diagnoses | [place], | | | n not | Services | and Oncology | Mass of | MD Iris | Abigail | | Required | Required | | left lung | [address] | Jennifer Juarez, | | | | | Onc/New/Lung | [facility] | [address] | | | | | | [address] | [address] | | | | | | [place] | [place] | | | | | | [address] | [place] [address] | | | | | | Phone: | Phone: | | | | | | [phone] | [phone] | | | | | | Fax: | Fax: | | | | | | [phone] | [phone] | + + + + + + + Encounter Details +--------+---------+ + + + | Date | Type | Department | Care Team | Description | +--------+---------+ + + + | 09/17/ | Office | [facility] | Armanda, | Mass of left lung | | 2020 | Visit | HEMATOLOGY AND | Jennifer Juarez MD | (Primary Dx); | | | | ONCOLOGY [address] | [address] | Subcutaneous lipoma | | | [address] | [place] | | | | | [place] | [address] | | | | | [address] | | | | | | [phone] | | | +--------+---------+ + + + [...] + + + | Blood Pressure | 144/88 | 09/18/2019 10:29 AM | | | | | PDT | | + + + + + | Pulse | 60 | 09/18/2019 10:29 AM | | | | | PDT | | + + + + + | Temperature | 36.7 C (98.1 F) | 09/18/2019 10:29 AM | | | | | PDT | | + + + + + | Respiratory Rate | 16 | 09/18/2019 10:29 AM | | | | | PDT | | + + + + + | Oxygen Saturation | 99% | 09/18/2019 10:29 AM | | | | | PDT | | + + + + + | Inhaled Oxygen | - | - | | | Concentration | | | | + + + + + | Weight | 89.1 kg (196 lb 6.4 | 09/18/2019 10:29 AM | | | | oz) | PDT | | + + + + + | Height | 167.6 cm (5' 6") | 09/18/2019 10:29 AM | | | | | PDT | | + + + + + | Body Mass Index | 31.7 | 09/18/2019 10:29 AM | | | | | PDT | | + + + + + documented in this encounter Progress Notes Jennifer Hayes MD - 09/18/2019 10:00 AM PDTFormatting of this note might be dif ferent from the original. [facility] Hematology & Oncology Initial Oncology Consultation Patient Name: MARTITA ESCOBEDO III Date of : 1955 Age: 64 y.o. Referring Provider: Dr. Malone PCP: Raiza Slaughter PA-C Dear Dr. Malone, On September 18, 2019, I had the privilege of seeing your patient, Mr. Martita Escobedo III, in [facility]. I am certain that you are fully apprised of his medical history, but I would like to review it here for the sake of our mutual medical records. Reason for Consultation Left lung mass History of Present Illness Mr. Martita Escobedo III is a pleasant 64 y.o. male with history of hypertension, acending aort ic aneurysm rupture, and status post surgical repair in 2013, now referred for left lung mas s reported suspicious for malignancy. 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 It was reported suspicious for malignancy. He was referred to oncology at at time but patient did not follow-up for oncology referral at that time. He had a repeat C T scan of the chest performed on 07/17/2019 follow-up of the lung lesion that again showed rivas picious left upper lobe measuring about 15 mm and reported highly suspicious for malignancy. Also, there was a reported 4 x 7 x 10 cm lipoma in the subcutaneous tissues of the left sh oulder. Patient now referred to oncology for recommendations on further management. He was recomme nded PET CT scan before the visit, performed on 09/10/2019. He is here today to discuss furt her management. He denies any cough, shortness of breath, chest pain, weight loss, loss of appetite, or any other unusual complaints. He is expectedly anxious with possibility of dhara g cancer. Did have prior history of smoking but quit many years ago. He is now smoking mar felicitaa about 1 cigarette a day. Review of systems as noted below. Cancer Stage Cancer Staging No matching staging information was found for the patient. Oncology History No history exists. Medical History Allergies Allergen Reactions Cephalexin Anaphylaxis Clindamycin Anaphylaxis Lisinopril Other (See Comments) Dry hacky cough Past Medical History: Diagnosis Date Aortic aneurysm (HCC) Cardiomyopathy (HCC) Claustrophobia Diabetes mellitus, type 2 (HCC) Hyperlipidemia Hypertension Lung mass Mild cardiomegaly Pneumonia Shingles Vitamin D deficiency Past Surgical History: Procedure Laterality Date ABDOMEN SURGERY CARPAL TUNNEL RELEASE COLONOSCOPY open heart 2014 OTHER SURGICAL HISTORY right elbow OTHER SURGICAL HISTORY UNLISTED PROCEDURE ARTHROSCOPY ROTATOR CUFF REPAIR Right VASCULAR SURGERY Family History Problem Relation Age of Onset Stroke Mother Heart disease Mother Hypertension Mother Social History Socioeconomic History Marital status: Spouse name: Not on file Number of children: Not on file Years of education: Not on file Highest education level: Not on file Occupational History Not on file Social Needs Financial resource strain: Not on file Food insecurity: Worry: Not on file Inability: Not on file Transportation needs: Medical: Not on file Non-medical: Not on file Tobacco Use Smoking status: Former Smoker Smokeless tobacco: Never Used Substance and Sexual Activity Alcohol use: Not Currently Comment: Alcoholic Drinks/day: past hx of alcohol use Drug use: Yes Types: Marijuana Comment: Drug use: Yes Sexual activity: Not Currently Lifestyle Physical activity: Days per week: Not on file Minutes per session: Not on file Stress: Not on file Relationships Social connections: Talks on phone: Not on file Gets together: Not on file Attends evangelical service: Not on file Active member of club or organization: Not on file Attends meetings of clubs or organizations: Not on file Relationship status: Not on file Intimate partner violence: Fear of current or ex partner: Not on file Emotionally abused: Not on file Physically abused: Not on file Forced sexual activity: Not on file Other Topics Concern Not on file Social History Narrative Not on file Patient's medical history above reviewed and updated on 09/18/2019 Medications Current Outpatient Medications Medication Sig Dispense Refill aspirin 81 MG EC tablet Take 81 mg by mouth daily with breakfast. atorvaSTATin (LIPITOR) 10 mg tablet Take 10 mg by mouth nightly. cyclobenzaprine (FLEXERIL) 10 mg tablet Take 10 mg by mouth nightly as needed for Muscl e spasms. (Patient not taking: Reported on 09/18/2019) hydroCHLOROthiazide 25 mg tablet Take 25 mg by mouth daily. irbesartan (AVAPRO) 300 mg tablet Take 1 tablet by mouth nightly. 90 tablet 2 methocarbamol (ROBAXIN) 500 mg tablet Take 500 mg by mouth every 6 (six) hours as neede d. metoprolol tartrate (LOPRESSOR) 100 mg tablet Take 100 mg by mouth 2 (two) times daily. No current facility-administered medications for this visit. Medications reviewed and updated on 09/18/2019 Review of Systems Review of Systems Constitutional: Negative for activity change, appetite change, fatigue, fever and unexpecte d weight change. HENT: Negative for sore throat and trouble swallowing. Eyes: Negative for photophobia and visual disturbance. Respiratory: Negative for cough, chest tightness and shortness of breath. Cardiovascular: Negative for chest pain, palpitations and leg swelling. Gastrointestinal: Negative for abdominal pain, diarrhea, nausea and vomiting. Musculoskeletal: Negative. Skin: Negative for rash. Allergic/Immunologic: Negative for immunocompromised state. Neurological: Negative for dizziness, seizures and headaches. Hematological: Negative for adenopathy. Does not bruise/bleed easily. Psychiatric/Behavioral: The patient is nervous/anxious (with work up as mnetioned). Physical Exam BP 144/88 | Pulse 60 | Temp 36.7 C (98.1 F) (Tympanic) | Resp 16 | Ht 1.676 m (5' 6 ") | Wt 89.1 kg (196 lb 6.4 oz) | SpO2 99% | BMI 31.70 kg/m ECOG Performance Status: 0 Physical Exam Constitutional: General: He is not in acute distress. Appearance: He is well-developed. HENT: Head: Normocephalic and atraumatic. Eyes: General: No scleral icterus. Conjunctiva/sclera: Conjunctivae normal. Neck: Musculoskeletal: Neck supple. Cardiovascular: Rate and Rhythm: Normal rate and regular rhythm. Pulmonary: Effort: Pulmonary effort is normal. No respiratory distress. Breath sounds: Normal breath sounds. Abdominal: General: Bowel sounds are normal. Palpations: Abdomen is soft. There is no mass. Musculoskeletal: General: No tenderness or deformity. Lymphadenopathy: Cervical: No cervical adenopathy. Skin: General: Skin is warm and dry. Findings: No rash. Comments: subcutaneous swelling at the left suprascapular area Neurological: Mental Status: He is alert and oriented to person, place, and time. Psychiatric: Comments: Normal eye contact, asks appropriate questions Labs and Imaging Hospital Outpatient Visit on 09/10/2019 Component Date Value Ref Range Status Glucose, POC 09/10/2019 106* 65 - 99 mg/dL Final Testing performed at [facility];[address] [place] [address];[place] [address] Assessment Mr. Martita Escobedo III is a pleasant 64 y.o. male with history of hypertension, acending aort ic aneurysm rupture, and status post surgical repair in 2013, now referred for left lung mas s reported suspicious for malignancy. Plan 1. Reviewed images of the PET CT scan with the patient. Imaging showed superior segment l eft lower lobe mass measuring about 18 x 15 mm and with no FDG uptake. This is probably rivas picious for guarding but cannot exclude a low-grade malignancy. Recommend biopsy for furthe r evaluation. However at this time low suspicion for malignancy although cannot exclude. 2. Also, he has a large left suprascapular area subcutaneous welling, possibly lipoma note d on the CT scan. Patient unaware of this but palpable on exam. Referred to general surger y for consideration of surgical excision. 3. He does not have any other clinical features suggestive of malignancy. Follow-up with results of biopsy to discuss further management. Call sooner if needed. All the patient's questions were answered to his satisfaction. I would like to thank Dr. Malone for the courtesy of this referral. Jennifer Hayes MD [facility] Hematology & Oncology 09/18/2019 Portions of this chart may have been created with voice recognition software. Occasional wr remington-word or "sound-alike" substitutions may have occurred, even after review, due to the inh erent limitations of voice recognition software. Please read the chart carefully and recogni ze, using context, where these substitutions have occurred. Personal communication is reques matthew for any clarification documented in this encounter Plan of Treatment +--------+---------+ + + + | Date | Type | Specialty | Care Team | Description | +--------+---------+ + + + | 01/26/ | Office | Cardiology | Iris Malone, | | | 2019 | Visit | | MD Erasmo ESCOTO | | | | | | [address] [place], [place] | | | | | | [address] | | | | | | | | +--------+---------+ + + + + + +--------+ + + | Name | Type | Priori | Associated Diagnoses | Order Schedule | | | | ty | | | + + +--------+ + + | Ambulatory Referral | Outpatient | Routin | Subcutaneous | Ordered: 09/18/2019 | | to [facility] General | Referral | e | lipoma | | | Surgery | | | | | + + +--------+ + + documented as of this encounter Results CT Guided Biopsy Lung Or Mediastinum (09/23/2019 12:56 PM PDT) + + | Specimen | + + | | + + + + + | Impressions | Performed At | + + + | Successful left lower lobe pulmonary nodule biopsy. Signed | [facility] | | by: Liliana Loiuse, Satish Sign Date/Time: 09/23/2019 3:47 PM | [...] guidance, a 19/20 | | | gauge [employer] coaxial needle system was used to obtain [...] CT guidance, | | a 19/20 gauge [employer] coaxial needle system was used to obtain [...] left lung - Primary | + + | Subcutaneous lipoma | + + documented in this encounter
--- OUTSIDE RECORDS SUMMARY | ~2019-11-14 | XMS | Encounter Summary ---
Demographics + + + | Address | [address] | | | [place] [address] | + + + | Home Phone | | + + + | Preferred Language | Unknown | + + + | Marital Status | | + + + | Rastafarian Affiliation | NRP | + + + | Race | or | + + + | Ethnic Group | Not or | + + + Author + + + | Author | [facility] | + + + | Organization | [facility] [employer] [facility] | + + + | Address | Unknown | + + + | Phone | Unavailable | + + + Support + + + + + | Name | Relationship | Address | Phone | + + + + + | Kim Sigo | ECON | [address] | | | | | [place] | | | | | [phone] | | + + + + + | Key Escobedo | ECON | Unknown | | + + + + + | Cathleen Escobedo | ECON | Unknown | | + + + + + Care Team Providers + +------+ + | Care Unloader Operator Name | Role | Phone | [...] + + + | Closed | | | | | | +--------+--------+ + + + + Encounter Details +--------+---------+ + + + | Date | Type | Department | Care Team | Description | +--------+---------+ + + + | 09/04/ | Surgery | 6A Intra Op [id number] | Destin Scott, | ASCENDING AORTIC | | 2013 | | [address] | [address] | RECONSTRUCTION; | | | | [address] [facility] | [place] [address] | Pathology x1 (1 | | | | Hospital Admitting | [phone] | ROGERIO) | | | | Desk Located on the | | | | | | 9th floor | | | | | | [place], [place] | | | | | | [phone] | | | +--------+---------+ + + + [...] + + + | Blood Pressure | 125/68 | 09/09/2013 7:35 AM | | | | | PDT | | + + + + + | Pulse | 92 | 09/09/2013 7:35 AM | | | | | PDT | | + + + + + | Temperature | 36.6 C (97.9 F) | 09/09/2013 7:35 AM | | | | | PDT | | + + + + + | Respiratory Rate | 18 | 09/09/2013 7:35 AM | | | | | PDT | | + + + + + | Oxygen Saturation | 96% | 09/09/2013 7:35 AM | | | | | PDT | | + + + + + | Inhaled Oxygen | - | - | | | Concentration | | | | + + + + + | Weight | 101.1 kg (222 lb | 09/06/2013 9:50 PM | | | | 14.2 oz) | PDT | | + + + + + | Height | 167.6 cm (5' 5.98") | 09/04/2013 5:41 PM | | | | | PDT | | + + + + + | Body Mass Index | 35.99 | 09/04/2013 5:41 PM | | | | | PDT | | + + + + + documented in this encounter Discharge Summaries Destin Scott MD - 09/09/2013 10:39 AM PDTFormatting of this note might be different fro m the original. INPATIENT PROVIDER DISCHARGE SUMMARY Admit Date: 09/01/2013 Discharge Date: 09/09/2013 Service: Cardiac Surgery Principal Final Diagnosis: 1. Ascending aortic aneurysm 2. Hypertension 3. Post-op delirium Additional Diagnoses: GERD Reason for Admission, Significant Findings, Treatment, and Complications Brief Hospital Course: Mr Escobedo is a 58 yo male was transferred from [facility] on 09/01 for treatment of ne wly diagnosed large ascending aortic aneurysm. He was admitted to the ICU for tight blood pr essure control. He was evaluated by cardiac surgery and consented for aortic aneurysm repair . He was then taken to the OR on 09/04. He did well in surgery and was transferred back to [facility] ICU to be weaned from the ventilator. He was stable for transfer out of the ICU on POD#2. He developed some post-operative delirium and agitation which has slowly cleared throughout his hospital stay. He continued to recover without complication and is now stable for discha rge home. Procedures: Ascending Aortic Reconstruction with 30 mm Dacron Discharge Medications: Current Discharge Medication List START taking these medications Details acetaminophen 325 mg oral tablet Take 2 tablets by mouth every six hours as needed for mode rate pain. HYDROmorphone 2 mg oral tablet Take 1-2 tablets by mouth every six hours as needed for mode rate pain or severe pain. Qty: 80 tablet, Refills: 0 metoprolol tartrate 100 mg oral tablet Take 1 tablet by mouth two times daily. Qty: 60 tablet, Refills: 3 omeprazole 40 mg oral capsule,delayed release(DR/EC) Take 1 capsule by mouth once daily. Qty: 30 capsule, Refills: 0 senna-docusate 8.6-50 mg oral tablet Take 1 tablet by mouth twice daily as needed. Indicati ons: CONSTIPATION Qty: 60 tablet, Refills: 0 CONTINUE these medications which have NOT CHANGED Details aspirin EC 81 mg oral tablet,delayed release (DR/EC) Take 81 mg by mouth once daily. hydrochlorothiazide 25 mg oral tablet Take 25 mg by mouth once daily. multivitamin-minerals oral tablet Take 1 tablet by mouth once daily. simvastatin 20 mg oral tablet Take 20 mg by mouth once daily in the evening. telmisartan (MICARDIS) 40 mg oral tablet Take 40 mg by mouth once daily in the evening. STOP taking these medications NIFEdipine ER 60 mg oral tablet extended release Comments: Reason for Stopping: Diet: Heart healthy Activity Orders: No driving x 6 weeks. No heavy lifting (> 10 lbs.) x 6 weeks. No baths, hot tubs x 6 weeks. Shower OK. Sexual activity OK. No driving while on narcotic pain medi cations. Sternal precautions: Do not lift more than 8 pounds. (A gallon of milk weighs 8 pounds.) Do not push or pull with your arms when moving in bed and getting out of bed. Do not flex or extend your shoulders over 90. Avoid reaching too far across your body. Avoid twisting or deep bending. Do not hold your breath during activity. Brace your chest when coughing or sneezing. This is vital during the first 2 weeks at ome. No driving for 1 month or while still taking narcotic pain medications. Avoid long periods of over the shoulder activity. If you feel any pulling or stretching in your chest, stop what you are doing. Do not re peat the motion that caused this feeling. Report any clicking or popping noise around your chest bone to your surgeon right away. No baths/soaking/hot tubs/pools until all scabs have completely fallen off - shower daily a nd dry incisions completely Follow Up Appointments: PCP: EDD Davies When? September 23 Dr Scott October 09 Condition On Discharge: Good Vital Signs at discharge as appropriate: BP: 125/68 mmHg (09/09/13 0735) Pulse: 92 (09/09/13 0735) Resp: 18 (09/09/13 0735) Weight: 101.1 kg (222 lb 14.2 oz) (09/06/13 2150) Discharge Patient To: Home Discharging Provider: MARYANA JAMA PA-C Date Completed: 09/09/2013 Time Completed: 1045 Discharging Attending: Destin Scott MD Medical Evaluation for Admission to Outpatient Cardiac Rehabilitation Richard Escobedo is currently limited in the ability to perform age-related activities of daily living and/or impaired functional abilities and would benefit from outpatient cardiac rehab ilitation. Richard Escobedo has a documented diagnosis of: Aortic Aneurysm Repair Date of Event/Procedure/Diagnosis: 09/01/2013 09/09/2013, 10:39 AM Physician Signature: Electronically signed by: Maryana Jama PA-C Division of Cardiothoracic Surgery [facility] [place] Mail Code [id number] [facility] [phone] documented in this en counter Discharge Instructions Instructions Bobo Ramsey - 09/09/2013Patient Education Materials: aneurysm repair; p ost-op Additional Instructions: sternal/wound precautions Discharge Nurse: Bobo Ramsey Date: 09/09/2013 Discharge Time: 11:18 AM AttachmentsThe following attachments cannot be sent through Care Everywhere.ANEURYSM: THORA CIC AORTIC : POSTOP (MALAGASY)documented in this encounter Medications at Time of [...] as of this encounter Progress Notes Ronald Cook - 09/08/2013 9:34 AM PDTFormatting of this note might be different from the or iginal. Cardiothoracic Surgery Progress Note Procedure s/p ascending aorta aneurysm repair POD # 4 Past 24 hour Events Delirium/agitation yesterday requiring public safety and again last noc requiring IM haldol and po seroquel Soft restraints placed earlier this AM Subjective C/o SOB this AM Objective: Last Vitals: BP 135/73 | Pulse 106 | Temp 36.8 C (98.2 F) | RR 26 | Ht 1.676 m (5' 5.98 ") | Wt 101.1 kg (222 lb 14.2 oz) | SpO2 97% | BMI 35.99 kg/(m^2) Intake/Output Summary (Last 24 hours) at 09/08/13 0934 Last data filed at 09/08/13 0918 Gross per 24 hour Intake 1106 ml Output 2780 ml Net -1674 ml Telemetry: Sinus/sinus tach Alert and oriented x 3 (person, place, time), non-focal s1-s2 tachy CTA bilateral Soft, non-tender High Rolls, warm, dry Sternal incision is c,d,i Lab Results Component Value Date NA 135 09/08/2013 K 3.2 09/08/2013 CL 103 09/08/2013 BICARB 23 09/08/2013 BUN 8 09/08/2013 CR 0.56 09/08/2013 GLU 142 09/08/2013 CA 8.4 09/08/2013 CBC with diff last 72 hours (or 3 results) Recent Labs 09/06/13 0223 09/07/13 0528 WBC 16.35* 13.70* HB 10.4* 10.6* HCT 30.3* 31.5* PLT 170 192 Chest x-ray: pending Assessment/Plan: 58 yo man from [facility], admitted for large ascending aortic aneurysm repair. Now POD # 4 s/p Asc. Aortic aneurysm repair. Post op course significant for hypertension and deliri um. His delirium is much improved this AM. He is c/o SOB, though saturating well on room ai r with good lungs sounds in all morrell. S/p Asc Aortic Aneurysm repair-- incision healing well. Post-op delirium--- Continue PRN IV haldol 5 mg and QHS seroquel 25 mg po QHS. Encourage sleep wake cycle. Limit restraints as nursing deems safe. Pulm edema/SOB-- repeat portable chest x-ray. Continue diuresis with lasix 40 mg po bid Hypokalemia-- aggressive K+ repletion -- will order 40 meq K+ IV now and repeat 20 meq K+ I V this PM. Continue po K+ HTN-- increase amlodipine to 10 mg daily, continue metoprolol 100 mg po bid Deconditioned-- PT/OT (Electronically Signed) Ronald Cook PA-C [facility] Cardiac Surgery onald Cook - 09/07/2013 7:5 6 AM PDT Cardiothoracic Surgery Progress Note Past 24 hour Events Delirium / agitation overnight requiring haldol and sitter now oriented this AM Subjective Doesn't like how oxycodone makes him feel. Pain is manageable. Objective: Last Vitals: BP 141/86[nurse notified[ | Pulse 84 | Temp 36.4 C (97.5 F) | RR 21 | Ht 1 .676 m (5' 5.98") | Wt 101.1 kg (222 lb 14.2 oz) | SpO2 97% | BMI 35.99 kg/(m^2) Intake/Output Summary (Last 24 hours) at 09/07/13 0756 Last data filed at 09/07/13 0600 Gross per 24 hour Intake 1179.77 ml Output 1870 ml Net -690.23 ml Telemetry: NSR Well-appearing, in NAD CTA bilateral s1-s2 RRR Sternal incision is c,d,i High Rolls, warm, dry No peripheral edema Alert and oriented x 3, non-focal Chemistries: Last 72 Hours (or 3 results): Recent Labs 09/04/13 1808 09/05/13 0121 09/06/13 0223 09/06/13201109/07/13 0528 NA 144 142 135* -- 130* K 4.0 3.6 3.2* 3.2* 3.3* CL 114* 111* 101 -- 95* BICARB 22 18* 25 -- 24 BUN 13 12 9 -- 10 CR 0.73 0.67* 0.67* -- 0.64* CA 7.5* 7.7* 8.3* -- 8.5* MG 2.3 2.0 1.9 -- -- PO4 3.3 3.8 3.5 -- 2.0* CBC with diff last 72 hours (or 3 results) Recent Labs 09/05/13 0121 09/06/13 0223 09/07/13 0528 WBC 12.81* 16.35* 13.70* HB 10.6* 10.4* 10.6* HCT 31.8* 30.3* 31.5* PLT 162 170 192 Lab Results Component Value Date INRPT 1.35* 09/04/2013 Chest x-ray: 09/06/2013 Mild hydrostatic pulmonary edema, new since the 09/05/2013 exam. Small layering right pleural effusion. Markedly hypoexpanded lungs. Assessment/Plan: 58 yo man from [facility], admitted for large ascending aortic aneurysm repair. Now POD # 5 s/p Asc. Aortic aneurysm repair. Post op course significant for hypertension and delir ium. He is complaining of side-effects from oxycodone this AM. S/p Asc Aortic Aneurysm repair-- d/c wires and adwoa drains. Sternal incision is healing w ell Post-op delirium--- spoke with , who states has moderate ETOH consumption over weekend (7-8 beers). Low suspicion for for withdrawal, but in differential. Will order CIW A protocol. Pulm edema-- respiratory stable. Aggressive diuresis with lasix. Hypokalemia-- aggressive K+ repletion HTN-- increase metoprolol to 100 mg po bid Deconditioned-- PT/OT (Electronically Signed) Ronald Cook PA-C [facility] Cardiac Surgery Chaitanya Cho MD - 4 2:17 PM PDT [facility] DAILY Attending PROGRESS NOTE Attending Pager: [phone] I have personally reviewed history and physical with the [facility] housestaff and have indepe ndently confirmed findings. I agree with the assessment and have participated in plan. Off gtts. No interval concerns of note. Dx: 1)Ascending aortic aneurysm-S/P repair 2)Essemtial hypertension 3)Chronic pain 4)Impaired glucose tolerance by history 5)Agitation-Resolved Plan:Increasing beta alexy, etc. Ongoing management of pain and glucose> Stable for floor Chaitanya Wallace MD Division Pulmonary-Critical Care Medicine Mailcode [id number] Pager [phone]/ [facility] DEPARTMENT: [facility], [facility]- [phone] Place of Service: - Date of Service: 09/06/2013 CSN: [id number] Modifiers:GC Resident Involved: yes Suggested CPT: 57844 Subsequent Visit Prob Focused/Low Complexity 15 min Martin Zee PA-C - 09/06/2013 7:44 AM PDT 8[facility] DAILY PROGRESS NOTE (PA) Team Pager: [phone] Attendin Author: MARTIN HOUSE PA-C Attending Drill Sharpener: Operating Surgeon: MD Destin Garcia MD POD# 2 Procedure: Ascending Aortic Reconstruction with 30 mm Dacron ICU day # 6 HPI: Richard Escobedo is a 58 y.o. male with a h/o HTN, HLD who is transferred from outside [facility] after an ascending aortic aneurysm was discovered on CTA. He was having chest pain an d was hypertensive in PCP office and sent to ED for dissection workup. Large ascending aorti c aneurysm (66cm x 7 cm in length) was discovered without e/o dissection. Patient then trans ferred here for evaluation by CT surgery. Procedure date TBD. Hospital Course: 09/01: Admitted to ICU. A-line placed. Esmolol gtt started 09/02: Increasing PO regimen for double product control. Started dexmedetomidine gtt for jose tated delirium 09/03: Titrating PO and IV BP/HR meds 09/04: OR. Extubated. PAC removed 09/05: Off nicardipine gtt. Started metop, amlodipine, and prn hydralazine. D/C'ed a-line 24 Hour Events: Titrated off Nicardipine gtt around 14:00. Started metoprolol 25 mg bid and increased t o 25 mg tid last evening. Further increased to 50 mg PO bid this early a.m. Started amlodi pine 5 mg daily last night. Has received total of Hydralazine IV 60 mg over past 24 hours. I/O goal: -500 ml with 40 mg PO furosemide x 2. Actual I/O: -598 ml D/C'ed arterial line Assessment and Plan: NEURO Acute postoperative nociceptive pain Acute on chronic pain (neck/bilateral shoulders) Agitated delirium pre-op Drinking hx: States he drinks about 6-7 beers once a week Acetaminophen PO q 4 hrs while a wake x 8 doses Oxycodone PO prn D/C HM IV prn CV Ascending Aortic Aneurysm s/p Ascending Aortic Reconstruction with 30 mm Dacron Sinus tachycardia, improved HTN HLD At risk for arrhythmia, bleeding, tamponade, RV failure, heart block SBP goal < 130, MAP > 60 Continue metoprolol 50 mg PO bid Continue amlodipine 5 mg PO bid Continue Hydralazine IV prn SBP goal D/C right IJ introducer D/C ventricular epicardial pacing wires Monitor adwoa drain output. Keep both adwoa drains for now ASA 81 mg daily Simvastatin 20 mg daily PULMO Pulmonary insufficiency following surgery Chronic SOB likely related to smoking hx O2 supplementation prn to maintain O2 sats > 92% Incentive spirometry OOB to chair PT RENAL/ ELECTROLYTES At risk for acute kidney injury/Acute renal failure Hypokalemia Hypomagnesemia Cr stable I/O goal: -500 ml Continue furosemide 40 mg PO bid Schedule K+ 20 mEq PO bid D/C lennon catheter Replace K+, Mg+ Check lytes tomorrow a.m. GI GERD GI prophylaxis Consistent carbohydrate Omeprazole PO HEM/COAG Acute postoperative blood loss anemia DVT prophylaxis Hct and Plt stable Monitor adwoa drain output SCDs and Hep SC No current need to check daily labs ID Leukocytosis, reactive Nicolette-op abx prophylaxis, completed WBC slightly increased: 12.8 -> 16.3. Afebrile x past 2 4 hours. Check WBC with labs tomorrow a.m. Continue to monitor temp. No current need for abx. D/C lennon and introducer ENDO At risk for hyperglycemia, stress-induced Transition from Insulin gtt to Insulin SC OTHER Disposition Code Status If minimal IV hydralazine requirements, can transfer to [place] from ICU later to day CODE STATUS : FULL Infusions: None Physical Exam: Neuro: alert and oriented CN: ll-XII intact Motor: 5/5 in all extremeties Sensory: light touch intact Sedation Score: NATE 3: Calm and cooperative Chest: clear and equal bilaterally with decreased breath sounds bilateral bases Incision: Dressing C/D/I Cardiac: Rhythm: NSR Regular Abdomen: bowel sounds hypoactive, soft, mildly obese and non-tender Extremities: Bilateral DP, radial 2+. Trace edema Skin: normal Tubes/Lines (insertion date): Ventricular epicardial pacing wires, 09/04 Adwoa drain x 2, 09/04 Right IJ cordis, 09/04 Feeding: Consistent carbohydrate Analgesia: Acetaminophen, Oxycodone Sedation: n/a Thromboprophylaxis: Heparin SQ Head of Bed: PT Ulcer Prophylaxis:Omeprazole Glycemic control: insulin SC For Advanced Practice Providers only: I have spent 55 minutes, independently, in the care and management of this patient who is critically ill at this time. Above plan discussed with Dr. Wallace. CARLITOS Yu PA-C [facility] DEPARTMENT: [facility] ICU CARDIAC [[id number]] Place of Service:- Inpatient Date of Service: 09/06/13 CSN: [id number] Suggested Modifier: None Suggested CPT: TO STRIPER MACHINE Zahra Levine MD - 09/05/2013 8:08 PM PDT 8[facility] ATTENDING MAIL CARRIER AND CLERK DAILY PROGRESS NOTE Team Pager: [phone] Attending Pager: [phone] Author: ZAHRA COOL MD Care plan d/w Dr Wallace (ICU day attending) and [facility] team during afternoon rounds. I review ed the documented findings, all data and the recent imaging available. 58 y.o. male s/p repair of ascending aortic aneurysm with Dacron graft on 09/04/13. HPI: Severe ascending aortic aneurysm 24 Hour Events: transitioned off nicardipine, on BB and PRN hjydralazine ASSESSMENT & PLAN: Continue current care in ICU increased BB DC [place] Gentle diuresis DISPO: critical ill in ICU Dx (acute): NEURO Acute Mental Status Change with delirium, resolved Acute postoperative nociceptive pain CV Ascending aortic aneurysm, s/p replacement PULMO Pulmonary insufficiency following surgery RENAL Hypervolemia Preserved renal function HEM/coagulation Acute postoperative blood loss anemia Acute postoperative thrombocytopenia ENDO Hyperglycemia, stress-induced OTHER Morbid obesity, Body mass index is 33.93 kg/(m^2). This patient is currently at risk for the following: electrolyte imbalance, intracerebral hemorrhage and ischemic stroke; arrhythmia, hematoma, myocardial infarction and pericardial tamponade; acute renal failure, central line associated blood stream infection, DVT/Pulmonar y embolism, dysphagia, GI bleed/gut ischemia and respiratory compromise. I have spent 20 minutes in the care and management of this patient who is critically ill. Zahra Cool MD PhD [employer] Department of Anesthesiology and Perioperative Medicine [facility] DEPARTMENT: [facility] ICU CARDIAC [[id number]] Place of Service:- Inpatient Date of Service: 09/05/13 CSN: [id number] Suggested Modifier: None Suggested CPT: TO STRIPER MACHINE Chaitanya Cho MD - 09/05/2013 3:44 PM PDT [facility] DAILY Attending PROGRESS NOTE Attending Pager: [phone] I have personally reviewed history and physical with the [facility] housestaff and have indepe ndently confimred findings. I agree with the assessment and have participated in plan. No significant events overnight.following extubation. On nicardipine gtt. Dx: 1)Ascending aortic aneurysm-S/P repair 2)Essemtial hypertension 3)Chronic pain 4)Impaired glucose tolerance by history 5)Agitation-Precipitant?-Improved Plan:adding in beta alexy with downward titration of nicadripine as tolerated Chaitanya Wallace MD Division Pulmonary-Critical Care Medicine Mailcode [id number] Pager [phone]/ [facility] DEPARTMENT: [facility]- [phone] Place of Service: - Date of Service: 09/05/2013 CSN: [id number] Modifiers:GC Resident Involved: yes Suggested CPT: 92807 Subsequent Visit Detailed/High complexity 35 min Martin Zee PA-C - 09/05/2013 9:14 AM PDT 8[facility] DAILY PROGRESS NOTE (CARLOS MANUEL) Team Pager: [phone] Attendin Author: MARTIN HOUSE PA-C Attending Drill Sharpener: Operating Surgeon: MD Destin Garcia MD POD# 1 Procedure: Ascending Aortic Reconstruction with 30 mm Dacron ICU day # 5 HPI: Richard Escobedo is a 58 y.o. male with a h/o HTN, HLD who is transferred from outside [facility] after an ascending aortic aneurysm was discovered on CTA. He was having chest pain an d was hypertensive in PCP office and sent to ED for dissection workup. Large ascending aorti c aneurysm (66cm x 7 cm in length) was discovered without e/o dissection. Patient then trans ferred here for evaluation by CT surgery. Procedure date TBD. Hospital Course: 09/01: Admitted to ICU. A-line placed. Esmolol gtt started 09/02: Increasing PO regimen for double product control. Started dexmedetomidine gtt for jose tated delirium 09/03: Titrating PO and IV BP/HR meds 09/04: OR. Extubated. PAC removed 24 Hour Events: Extubated around 21:00 Received total of 500 ml albumin since return from OR D/C'ed PA catheter Slowly increasing HR overnight to 110's this a.m. Pt still c/o pain despite receiving 1 mg IV HM q 1 hr. Liberalized analgesia this a.m and HR low 100's. Assessment and Plan: NEURO Acute postoperative nociceptive pain Acute on chronic pain (neck/bilateral shoulders) Agitated delirium pre-op Drinking hx: States he drinks about 6-7 beers once a week Acetaminophen PO q 4 hrs while a wake x 8 doses Oxycodone PO prn HM IV prn for breakthrough pain CV Ascending Aortic Aneurysm s/p Ascending Aortic Reconstruction with 30 mm Dacron Sinus tachycardia HTN HLD At risk for arrhythmia, bleeding, tamponade, RV failure, heart block SBP goal < 120, MAP > 60 Start metoprolol 25 mg PO bid Titrate Nicardipine gtt for SBP goal Hydralazine IV prn for SBP goal. Attempt to use IV hydralazine prn and titrate off Nicardi pine gtt Keep arterial line for now while on nicardipine gtt Keep right IJ cordis for now. Possibly d/c later today Cap ventricular pacing wires Monitor adwoa drain output ASA 81 mg daily Simvastatin 20 mg daily PULMO Pulmonary insufficiency following surgery Chronic SOB likely related to smoking hx O2 supplementation prn to maintain O2 sats > 92% Incentive spirometry OOB to chair RENAL/ ELECTROLYTES At risk for acute kidney injury/Acute renal failure Hypokalemia Hypocalcemia Cr appears to be stable: 0.73 -> 0.67 I/O goal: -500 ml Start furosemide 40 mg PO bid Keep lennon catheter this a.m and consider d/c this afternoon Replace K+, Ca. Check labs tomorrow a.m. GI GERD GI prophylaxis Consistent carbohydrate Omeprazole PO HEM/COAG Acute postoperative blood loss anemia DVT prophylaxis Hct and Plt stable Monitor CT output SCDs and Hep SC Check labs tomorrow a.m. ID Leukocytosis, reactive Nicolette-op abx prophylaxis, completed WBC mildly elevated but stable at 12.8 Afebrile x past 24 hours. Continue to monitor temp. No current need for abx Consider removing lennon and introducer later today. If off nicardipine gtt, can d/c arteri al line ENDO At risk for hyperglycemia, stress-induced Insulin gtt via Endotool OTHER Disposition Code Status ICU level of care CODE STATUS : FULL Infusions: Insulin Physical Exam: Neuro: alert and oriented CN: ll-XII intact Motor: 5/5 in all extremeties Sensory: light touch intact Sedation Score: NATE 3: Calm and cooperative Chest: clear and equal bilaterally Incision: Dressing C/D/I Cardiac: Rhythm: Sinus tachycardia tachycardia Abdomen: bowel sounds hypoactive, soft, mildly obese and non-tender Extremities: Bilateral DP, radial 2+. Trace edema Skin: normal Tubes/Lines (insertion date): Ventricular epicardial pacing wires, 09/04 Chest tube, 09/04 Lennon catheter, 09/04 Right IJ cordis, 09/04 Right radial arterial line, 09/01 Feeding: Consistent carbohydrate Analgesia: Acetaminophen, Oxycodone, HM IV Sedation: n/a Thromboprophylaxis: Heparin SQ Head of Bed: PT Ulcer Prophylaxis:Omeprazole Glycemic control: insulin infusion For Advanced Practice Providers only: I have spent 58 minutes, independently, in the care and management of this patient who is critically ill at this time. Above plan discussed with Dr. Wallace. CARLITOS Yu PA-C EPIC DEPARTMENT: [facility] ICU CARDIAC [[id number]] Place of Service:- Inpatient Date of Service: 09/05/13 CSN: [id number] Suggested Modifier: None Suggested CPT: TO STRIPER MACHINE Zahra Levine MD - 09/04/2013 8:48 PM PDT 8[facility] ATTENDING MAIL CARRIER AND CLERK DAILY PROGRESS NOTE Team Pager: [phone] Attending Pager: [phone] Author: ZAHRA COOL MD ATTESTATION: Seen with [facility]LOS MANUEL House. Please see his note for details. I reviewed the documented findings, all data and the recent imaging available 58 y.o. male s/p repair of ascending aortic aneurysm with Dacron graft on 09/04/13. HPI: Severe ascending aortic aneurysm 24 Hour Events: Surgery CXR: ETT and lines in good position, no ptx LINES: Margaret, CVC?PAC, silvano lennon, wire ASSESSMENT & PLAN: See PAnnoam for detailed care plan as discussed with me Fast track candidate for extubation -> done minimal bleeding in immediate postoperative period, received additional protamine for eleva matthew PTT Fluid resuscitation Afterload reduction if needed for SBP< 110 (first 2h) then <120 with nicardipine or PRN hyd ralazine Given hemodynamic stability, will DC PAC tonight DISPO: critical ill in ICU following cardiac surgery Dx (acute): NEURO Acute Mental Status Change with delirium Acute postoperative nociceptive pain CV Ascending aortic aneurysm, s/p replacement PULMO Pulmonary insufficiency following surgery RENAL Hypovolemia Preserved renal function Electrolytes Hypocalcemia GI Unable to eat due to critical illness and intubation HEM/coagulation Acute postoperative blood loss anemia Acute postoperative thrombocytopenia Acute postoperative coagulopathy ID no acute issue ENDO Hyperglycemia, stress-induced OTHER Morbid obesity, Body mass index is 33.93 kg/(m^2). This patient is currently at risk for the following: electrolyte imbalance, intracerebral hemorrhage and ischemic stroke; arrhythmia, hematoma, myocardial infarction and pericardial tamponade; acute renal failure, central line associated blood stream infection, DVT/Pulmonar y embolism, dysphagia, GI bleed/gut ischemia and respiratory compromise. I have spent 50 minutes in the care and management of this patient who is critically ill. Zahra Cool MD PhD International First Officer Department of Anesthesiology and Perioperative Medicine [facility] DEPARTMENT: [facility] ICU CARDIAC [[id number]] Place of Service:- Inpatient Date of Service: 09/04/13 CSN: [id number] Suggested Modifier: None Suggested CPT: TO STRIPER MACHINE yshoshana, Teresa Cartwright - 09/04/2013 9:43 AM PDT 8[facility] DAILY PROGRESS NOTE (PA) Team Pager: [phone] Attendin Author: MARTIN HOUSE PA-C Attending Drill Sharpener: Operating Surgeon: MD Destin Garcia MD ICU day # 4 HPI: Richard Escobedo is a 58 y.o. male with a h/o HTN, HLD who is transferred from outside [facility] after an ascending aortic aneurysm was discovered on CTA. He was having chest pain and was hypertensive in PCP office and sent to ED for dissection workup. Large ascending aortic aneurysm (66cm x 7 cm in length) was discovered without e/o dissection. Patient then transf erred here for evaluation by CT surgery. Procedure date . Hospital Course: 09/01: Admitted to ICU. A-line placed. Esmolol gtt started 09/02: Increasing PO regimen for double product control. Started dexmedetomidine gtt for a gitated delirium 24 Hour Events: No acute events Esmolol titrated for HR and BP goals Has not received IV hydralazine or IV lasix x past 24 hours UA negative NPO since midnight in anticipation of OR on 09/04/13 Currently pain free Assessment and Plan: NEURO Acute on chronic pain Agitated delirium Acetaminophen PO prn Continue Oxycodone prn pain Seroquel qHS prn Maintain good day/night cycles Continue dexmedetomidine gtt CV Asceding aortic aneurysm. Hx of HTN/HLD At risk for hemorrhage, arrhythmias, stroke, dissection SBP < 110 HR goal < 60 OR today for surgical repair of ascending aortic aneurysm Wean esmolol as tolerated Continue metoprolol 100mg q6h, diltiazem 30mg q6h, hydralazine 20mg TID Hydralazine IV prn PULMO Chronic SOB likely related to smoking hx potentially COPD At risk for DIANELYS Supplemental O2 prn to maintain O2 sats > 92% RENAL/ ELECTROLYTES Preserved renal function At risk for hypervolemia given large fluid requirement of Esmolol drip Hypokalemia Hypomagnesemia I/O: even Concentrate Esmolol to decrease volume load. Replace K+, Mg+ GI no acute issue GI prophylaxis NPO Ulcer prophylaxis not indicated currently HEM/COAG no acute issue DVT prophylaxis Hold chemoprophylaxis for now SCDs/Ambulate ID Reactive leukocytosis, improving No acute issues ENDO no acute issue Sliding scale insulin OTHER Code Status Dispo CODE STATUS : FULL Continue ICU care. Going to OR today for repair of ascending aortic aneurysm Infusions: Esmolol 90 mcg/kg/min Physical Exam: Neuro: Alert and interactive. Pt oriented x 3. Very impulsive but cooperative and follows commands. CN: ll-XII intact Motor: 5/5 in all extremeties Sensory: light touch intact Sedation Score: ANTE 3: Calm and cooperative Chest: clear and equal bilaterally with decreased breath sounds right base Cardiac: Rhythm: Sinus vs bradycardia regular Abdomen: bowel sounds present, soft, non-distended and non-tender Extremities: Bilateral DP, radial 2+. No edema Skin: normal Tubes/Lines (insertion date): Arterial line, 09/01 PIV Feeding: NPO Analgesia: Oxycodone Sedation: n/a Thromboprophylaxis: SCDs Head of Bed: OOB as tolerated Ulcer Prophylaxis:not clinically indicated Glycemic control: insulin sliding For Advanced Practice Providers only: I have spent 42 minutes, independently, in the care and management of this patient who is critically ill at this time. Above plan discussed with Dr. Wallace. CARLITOS Yu PA-C [facility] DEPARTMENT: [facility] ICU CARDIAC [[id number]] Place of Service:- Inpatient Date of Service: 09/03/13 CSN: [id number] Suggested Modifier: None Suggested CPT: TO STRIPER MACHINE Chaitanya Cho MD - 09/04/2013 8:00 AM PDT 8[facility] DAILY Attending PROGRESS NOTE Attending Pager: [phone] Date:09/04/2013 Author: CHAITANYA WALLACE MD Primary Service Attending: Destin Scott MD HPI: 58 y.o. y/o male admitted 09/01/2013 8:12 PM. 24 Hour Events: Active in night despite high level demeditomidine infusion Data by Systems: Neurological: alert and oriented Cardiovascular: Last Vitals: BP 126/66 | Pulse 59 | Temp 36 C (96.8 F) | RR 23 | Ht 1.676 m (5' 6") | W t 95.3 kg (210 lb 1.6 oz) | SpO2 93% | BMI 33.93 kg/(m^2) 24 Hour Vital Min/Max: No data recorded. No data recorded. Pulse Av.9 Min: 53 Max: 62 Heart: RRR Hemodynamics: Arterial BP Mean: 83 mmHg (09/04/13 0700) Respiratory: Resp Av.4 Min: 13 Max: 28 SpO2 Av.9 % Min: 93 % Max: 98 % Lungs: = Pulmonary labs: ABGs: No results found for this basename: FIO2, PH, PCO2, PO2, HCO3, [id number], [id number], ABGEXECESS, in the last 72 hours GI: Abdomen: soft GI labs: Recent Labs 09/02/13 0255 09/03/13 0006 09/04/13 0202 ALB 3.7 3.6 3.2* Renal: Admit wt:Weight: 95.3 kg (210 lb 1.6 oz) (09/01/13 2000) Intake/Output Summary (Last 24 hours) at 09/04/13 0800 Last data filed at 09/04/13 0800 Gross per 24 hour Intake 1285.32 ml Output 3800 ml Net -2514.68 ml Renal labs: Recent Labs 09/02/13 0255 09/03/13 0006 09/03/13 1608 09/03/13 2135 09/04/13 0202 NA 135* -- 131* -- -- -- 132* K 3.6 -- 3.6 -- -- -- 3.9 CL 102 -- 102 -- -- -- 104 BICARB 23 -- 20* -- -- -- 18* BUN 19 -- 18 -- -- -- 15 CR 0.90 -- 0.73 -- -- -- 0.77 MG 2.4 -- 1.7* -- -- -- 1.8 PO4 3.8 -- 2.8 -- -- -- 2.6 GLU 112* < > 160* < > 112* 122* 100* < > = values in this interval not displayed. ID/HO: Temp (24hrs), Av C (96.8 F), Min:35.8 C (96.4 F), Max:36.1 C (97 F) ID/HO labs: Recent Labs 09/02/13 0255 09/03/13 0006 09/04/13 0202 WBC 11.69* 15.46* 10.13 HB 13.2* 13.2* 11.4* HCT 39.1* 39.5* 33.8* PLT 286 280 214 No components found with this basename: INR, Cultures: No results found for this basename: culture Endocrine: CBG range: No Data Recorded Last Musculoskeletal: Extremities:noncynaotic MAR: acetaminophen (TYLENOL) tablet 325-650 mg, 325-650 mg, oral, Q4H PRN cefUROXime (ZINACEF) IV 1.5 g, 1.5 g, intravenous, 6A INTRAPROCEDURE ONCE (DISPENSE) cefUROXime (ZINACEF) IV 1.5 g, 1.5 g, intravenous, 6A INTRAPROCEDURE ONCE (DISPENSE) chlorhexidine (PERIDEX) mouthwash 15 mL, 15 mL, oral, BID cyclobenzaprine (FLEXERIL) tablet 5 mg, 5 mg, oral, HS PRN dexmedetomidine 400 mcg in NaCl 0.9 % IV infusion, 0.3-2 mcg/kg/hr, intravenous, CONTINUOUS dextrose 50 % IV 25 mL, 25 mL, intravenous, PRN diltiazem (CARDIZEM) tablet 30 mg, 30 mg, oral, Q6H esmolol (BREVIBLOC) IV infusion, 1-300 mcg/kg/min, intravenous, CONTINUOUS glucagon (GLUCAGEN) injection 1 mg, 1 mg, intramuscular, PRN glucose chewable tablet 16 g, 16 g, oral, PRN hydrALAZINE (APRESOLINE) injection 10-20 mg, 10-20 mg, intravenous, Q2H PRN hydrALAZINE (APRESOLINE) tablet 20 mg, 20 mg, oral, TID insulin lispro (HUMALOG) injection, , subcutaneous, QID magnesium sulfate IV 2 g, 2 g, intravenous, PRN metoprolol tartrate (LOPRESSOR) tablet 100 mg, 100 mg, oral, Q6H mupirocin (BACTROBAN) 2 % ointment, , nasal, BID ondansetron (ZOFRAN) injection 4 mg, 4 mg, intravenous, Q12H PRN oxyCODONE (immediate release) (ROXICODONE) tablet 5-10 mg, 5-10 mg, oral, Q3H PRN polyethylene glycol (MIRALAX) powder 17 g, 17 g, oral, DAILY PRN potassium chloride (KAOCHLOR) liquid 10-40 mEq, 10-40 mEq, oral, PRN QUEtiapine (SEROQUEL) tablet 25 mg, 25 mg, oral, HS PRN senna-docusate (SENOKOT S) 8.6-50 mg 1 tablet, 1 tablet, oral, BID sodium chloride (OCEAN) 0.65 % nasal spray 2 spray, 2 spray, both nostrils, PRN tamsulosin (FLOMAX) capsule 0.4 mg, 0.4 mg, oral, HS Dx: 1)Ascending aortic aneurysm 2)Essemtial hypertension 3)Chronic pain 4)Impaired glucose tolerance by history 5)Agitation-Precipitant? Plan:Continuing current sedation and antihypertensive approach till suregey Chaitanya Wallace MD Division Pulmonary-Critical Care Medicine Mailcode [facility]-67 Pager [phone]/ [facility] DEPARTMENT: [facility] [phone] Place of Service: Date of Service: 09/04/2013 CSN: [id number] Modifiers:GC Resident Involved: No Suggested CPT: 54726 Subsequent Visit Exp Prob Foc/Mod Complexity 25 min Mckayla Snyder MD - 09/03/2013 9:07 PM [id number] NIGHT MAIL CARRIER AND CLERK PROGRESS NOTE Team Pager: [phone] Attendin Events of the day, patient condition, and plan reviewed with the day team. Please see their note for details. I have examined the patient and reviewed the relevant data. HPI: 58 yo male with HTN, HL and borderline DM, now with ascending aortic aneurysm diagnosed aft er presenting to referring hospital with dyspnea. Transferred to [facility] on 09/01/13 for further management. Arrived with one PIV, SBP 140s, HR 70s. Events of the day: Uncooperative and agitated overnight, refusing therapies Calmer today, with the aid of Dexmedetomidine at bedside, updated Patient apparently sleeping Problems/Plan: Unsecured ascending aortic aneurysm: To surgery tomorrow. Continue aggressive double produ ct control. Delirium, likely due to sleep deprivation and stress: Continue Dexmedetomidine, optimize e nvironment. Chronic neck and back pain: Non-opioid and opioid analgesics Dispo: Continue ICU for monitoring and IV antihypertensives. I have spent 35 minutes in the care of this critically ill patient. Jihan Mendoza MD Line Out Worker Department of Anesthesiology and Nicolette-Operative Medicine Critical Care [facility] DEPARTMENT: [facility] ICU CARDIAC [[id number]] Place of Service:[id number]- Inpatient Date of Service: 09/03/2013 CSN: [id number] Suggested Modifier: Suggested CPT: TO STRIPER MACHINE cGirr, Alex Echols DO - 09/03/2013 7:56 AM PDT 8[facility] DAILY PROGRESS NOTE (Resident) Team Pager: [phone] Attendin Author: ALEX RIOS DO Attending Drill Sharpener: Operating Surgeon: MD Destin Garcia MD ICU day # 3 HPI: Richard Escobedo is a 58 y.o. male with a h/o HTN, HLD who is transferred from outside [facility] after an ascending aortic aneurysm was discovered on CTA. He was having chest pain and was hypertensive in PCP office and sent to ED for dissection workup. Large ascending aortic aneurysm (66cm x 7 cm in length) was discovered without e/o dissection. Patient then transf erred here for evaluation by CT surgery. Procedure date TBD. 24 Hour Events: Agitated delirium overnight requiring precedex gtt and seroquel Meeting hemodynamic goals with orals and lower esmolol gtt Assessment and Plan: NEURO Acute on chronic pain Agitated delirium Continue Oxycodone prn pain Seroquel qHS Maintain good day/night cycles CV Asceding aortic aneurysm. Now on esmolol. Will plan to uptitrate PO regimen and tra nsition off of IV esmolol Procedure date TBD by CTS Hx of HTN/HLD At risk for hemorrhage, arrhythmias, stroke, dissection SBP < 110 HR goal < 60 Wean esmolol as tolerated Continue metoprolol 100mg q6h, diltiazem 30mg q6h, hydralazine 20mg TID Hydralazine IV prn On OR schedule for tomorrow PULMO Chronic SOB likely related to smoking hx potentially COPD At risk for DIANELYS SpO2 goal >92% Supplemental O2 prn RENAL/ ELECTROLYTES Preserved renal function At risk for hypervolemia given large fluid requirement of Esmolol drip Hypokalemia I/O even Concentrate Esmolol to decrease volume load. 20mg IV lasix prn to meet I/O goal Supplement lytes per protocol GI no acute issue GI prophylaxis Regular diet, npo at midnight Ulcer prophylaxis not indicated currently HEM/COAG no acute issue DVT prophylaxis Hold chemoprophylaxis for now SCDs/Ambulate ID Reactive leukocytosis Trend WBC Check UA now ENDO no acute issue Sliding scale insulin OTHER Code Status Dispo CODE STATUS : FULL Continue ICU care Infusions: Esmolol 100mcg/kg/min Physical Exam: Neuro: CN II-XII intact, moving all 4 extremities symmetrically against gravity, sensation to light touch intact at distal BUE/BLEs. HEENT: PERRl b/l, EOMI b/l. No nystagmus. Posterior oropharynx clear. CV: RRR, no murmur appreciated, heart sounds somewhat distant. 2+ radial/pedal pulses. Lungs: CTA bilaterally, no w/r/r. Abd: Soft, distended, non-tender. Exts: WWP bilaterally, no pitting edema. Skin: scattered small ecchymoses on patient's mid back, no rash. Tubes/Lines (insertion date): (09/01) PIV Feeding: Regular Analgesia: Oxycodone Sedation: None Thromboprophylaxis: SCDs/Ambulate Head of Bed: Head of Bed >30 degrees Ulcer Prophylaxis: Not indicated Glycemic control: not indicated Pt has been seen and examined with Dr. Wallace who agrees with the assessment and plan. ALEX RIOS DO Chaitanya Cho MD - 09/03/2013 7:54 AM PDT [facility] DAILY Attending PROGRESS NOTE Attending Pager: [phone] I have personally reviewed history and physical with the [facility] housestaff and have indepe ndently examined patient. I agree with the assessment and have participated in plan. Impulsive,agitated overnight leading to institution of Dexmeditomidine gtt. Dx: 1)Ascending aortic aneurysm 2)Essemtial hypertension 3)Chronic pain 4)Impaired glucose tolerance by history 5)Agitation-Precipitant? Plan:Continue current IV and oral regimen for BP control. Dexmeditomidine appears reasonabl e solution to BP, HR and agitation problem. Planned suregry tomorrow. NPO after MN, etc Chaitanya Wallace MD Division Pulmonary-Critical Care Medicine Mailcode [facility]-67 Pager [phone]/ [facility] DEPARTMENT: [facility] [phone] Place of Service: [facility] Date of Service: 09/03/2013 CSN: [id number] Modifiers:GC Resident Involved: yes Suggested CPT: 92589 Critical Care, Initial 30-74 minutes Total Critical Care Time:32 minutes Mckayla Snyder MD - 09/02/2013 6:42 PM [id number] NIGHT MAIL CARRIER AND CLERK PROGRESS NOTE Team Pager: [phone] Attendin Events of the day, patient condition, and plan reviewed with the day team. Please see their note for details. I have examined the patient and reviewed the relevant data. HPI: 58 yo male with HTN, HL and borderline DM, now with ascending aortic aneurysm diagnosed aft er presenting to referring hospital with dyspnea. Transferred to [facility] on 09/01/13 for further management. Arrived with one PIV, SBP 140s, HR 70s. Events of the day: Transitioning to enteral antihypertensives C/o significant back and neck pain (chronic condition exacerbated by bedrest) No further episodes of dyspnea Difficulty voiding Problems/Plan: Ascending aortic aneurysm: Surgical plan pending. Double product control. Poorly controlled hypertension: Transitioning to enteral antihypertensive regimen. Chronic neck and back pain: Heat packs, acetaminophen, mobilize Hypervolemia: Diuresis, goal -500-+500. Urinary retention: Start tamsulosin. May need lennon cath if unable to void following furo semide. I have spent 39 minutes in the care of this critically ill patient at risk of aortic ruptur caio Mendoza MD Line Out Worker Department of Anesthesiology and Nicolette-Operative Medicine Critical Care [facility] DEPARTMENT: [facility] ICU CARDIAC [[id number]] Place of Service:- Inpatient Date of Service: 09/02/2013 CSN: [id number] Suggested Modifier: Suggested CPT: TO STRIPER MACHINE Kemi Damon - 10:45 AM PDTTransthoracic echocardiogram completed. Final report to follow. Chaitanya Cho MD - 2013 7:54 AM PDT [facility] DAILY Attending PROGRESS NOTE Attending Pager: [phone] I have personally reviewed history and physical with the [facility] housestaff and have indepe ndently examined patient. I agree with the assessment and have participated in plan. On high dose esmolol. With HR near target. No symptoms referable to dissection Dx: 1)Ascending aortic aneurysm 2)Essemtial hypertension 3)Chronic pain 4)Impaired glucose tolerance by history Plan:Attemptoing to transition onto orals with aggressive beta blockade ,e tc Chaitanya Wallace MD Division Pulmonary-Critical Care Medicine Mailcode N-[id number] Pager [phone]/ [facility] DEPARTMENT: [facility], [facility]- [phone] Place of Service: IP - Date of Service: 09/02/2013 CSN: [id number] Modifiers:GC Resident Involved: yes Suggested CPT: 99196 Subsequent Visit Detailed/High complexity 35 min lex Rios DO - 09/02/2013 7:51 AM PDT 8[facility] DAILY PROGRESS NOTE (Resident) Team Pager: [phone] Attendin Author: ALEX RIOS DO Attending Drill Sharpener: Operating Surgeon: MD Destin Garcia MD ICU day # 2 HPI: Richard Escobedo is a 58 y.o. male with a h/o HTN, HLD who is transferred from outside [facility] after an ascending aortic aneurysm was discovered on CTA. He was having chest pain and was hypertensive in PCP office and sent to ED for dissection workup. Large ascending aortic aneurysm (66cm x 7 cm in length) was discovered without e/o dissection. Patient then transf erred here for evaluation by CT surgery. Procedure date TBD. 24 Hour Events: CT reviewed by [facility] radiology. Per verbal report: no involvement of Aortic valve or cor onaries TTE completed this morning Assessment and Plan: NEURO Acute on chronic pain Continue Oxycodone prn pain CV Asceding aortic aneurysm. Now on esmolol. Will plan to uptitrate PO regimen and tra nsition off of IV esmolol Procedure date TBD by CTS Hx of HTN/HLD At risk for hemorrhage, arrhythmias, stroke, dissection SBP < 110 HR goal < 60 Given labetolol this am. Start metoprolol 25 mg TID, may need to be rapidly uptitrate Stop carvedilol May add hydralazine if needed PULMO Chronic SOB likely related to smoking hx potentially COPD At risk for DIANELYS SpO2 goal >92% Supplemental O2 prn RENAL/ ELECTROLYTES Preserved renal function At risk for hypervolemia given large fluid requirement of Esmolol drip Hypokalemia I/O ad huma Replace K to 4.5 Replace Mg to 2 Concentrate Esmolol to decrease volume load. Consider lasix if trending grossly postive GI no acute issue GI prophylaxis Dc famotidine Ulcer prophylaxis not indicated currently HEM/COAG no acute issue DVT prophylaxis Hold chemoprophylaxis for now SCDs ID no acute issue Daily CBC ENDO no acute issue Insulin not indicated currently Monitor glucose with daily labs OTHER Code Status Dispo CODE STATUS : FULL Continue ICU care Infusions: Esmolol 300mcg/kg/min Physical Exam: Neuro: CN II-XII intact, moving all 4 extremities symmetrically against gravity, sensation to light touch intact at distal BUE/BLEs. HEENT: PERRl b/l, EOMI b/l. No nystagmus. Posterior oropharynx clear. CV: RRR, no murmur appreciated, heart sounds somewhat distant. 2+ radial/pedal pulses. Lungs: CTA bilaterally, no w/r/r. Abd: Soft, distended, non-tender. Exts: WWP bilaterally, no pitting edema. Skin: scattered small ecchymoses on patient's mid back, no rash. Tubes/Lines (insertion date): AL (09/01) PIV Feeding: Regular Analgesia: Oxycodone Sedation: None Thromboprophylaxis: SCDs Head of Bed: Head of Bed >30 degrees Ulcer Prophylaxis: Not indicated Glycemic control: not indicated Pt has been seen and examined with Dr. Wallace who agrees with the assessment and plan. ALEX RIOS DO documented in this e ncounter Plan of Treatment +--------+ + + + + | Date | Type | Specialty | Care Team | Description | +--------+ + + + + | 11/15/ | Telephone-S | Thoracic Surgery | Ronald Barth MD | | | 2019 | cheduled | | [address] [facility] | | | | | | [address] | | | | | | [place], [place] | | | | | | [address] | | | | | | [phone] | | | | | | | | +--------+ + + + + documented as of this encounter Procedures + +--------+ + + + | Procedure Name | Priori | Date/Time | Associated Diagnosis | Comments | | | ty | | | | + +--------+ + + + | ARTERIAL LINE | Routin | 06/16/2015 | | Results for this | | NOTEWRITER | e | 7:24 PM | | procedure are in the | | DOCUMENTATION | | PST | | results section. | + +--------+ + + + | PROCEDURE NOTE | Routin | 06/16/2015 | | Results for this | | | e | 7:22 PM | | procedure are in the | | | | PST | | results section. | + +--------+ + + + | PROCEDURE NOTE | Routin | 06/16/2015 | | Results for this | | | e | 7:16 PM | | procedure are in the | | | | PST | | results section. | + +--------+ + + + | X-RAY CHEST 2 VIEW | Routin | 09/09/2013 | | Results for this | | | e | 9:34 AM | | procedure are in the | | | | PDT | | results section. | + +--------+ + + + | CAPILLARY BLOOD | Routin | 09/08/2013 | | Results for this | | GLUCOSE (NO CHG), | e | 10:27 PM | | procedure are in the | | POC | | PDT | | results section. | + +--------+ + + + | CAPILLARY BLOOD | Routin | 09/08/2013 | | Results for this | | GLUCOSE (NO CHG), | e | 5:55 PM | | procedure are in the | | POC | | PDT | | results section. | + +--------+ + + + | CAPILLARY BLOOD | Routin | 09/08/2013 | | Results for this | | GLUCOSE (NO CHG), | e | 12:26 PM | | procedure are in the | | POC | | PDT | | results section. | + +--------+ + + + | X-RAY PORTABLE CHEST | Routin | 09/08/2013 | | Results for this | | 1 VIEW | e | 9:51 AM | | procedure are in the | | | | PDT | | results section. | + +--------+ + + + | BASIC METABOLIC SET | Routin | 09/08/2013 | | Results for this | | (NA, K, CL, TCO2, | e | 8:44 AM | | procedure are in the | | BUN, CR, GLU, CA) | | PDT | | results section. | + +--------+ + + + | CAPILLARY BLOOD | Routin | 09/08/2013 | | Results for this | | GLUCOSE (NO CHG), | e | 6:58 AM | | procedure are in the | | POC | | PDT | | results section. | + +--------+ + + + | CAPILLARY BLOOD | Routin | 09/07/2013 | | Results for this | | GLUCOSE (NO CHG), | e | 9:07 PM | | procedure are in the | | POC | | PDT | | results section. | + +--------+ + + + | CAPILLARY BLOOD | Routin | 09/07/2013 | | Results for this | | GLUCOSE (NO CHG), | e | 4:57 PM | | procedure are in the | | POC | | PDT | | results section. | + +--------+ + + + | 12 LEAD ECG | Routin | 09/07/2013 | | Results for this | | | e | 11:24 AM | | procedure are in the | | | | PDT | | results section. | + +--------+ + + + | CAPILLARY BLOOD | Routin | 09/07/2013 | | Results for this | | GLUCOSE (NO CHG), | e | 8:27 AM | | procedure are in the | | POC | | PDT | | results section. | + +--------+ + + + | CBC (HEMOGRAM) ONLY | Urgent | 09/07/2013 | | Results for this | | | | 5:28 AM | | procedure are in the | | | | PDT | | results section. | + +--------+ + + + | RENAL FUNCTION SET | Urgent | 09/07/2013 | | Results for this | | (NA,K,CL,CO2,BUN,CRE | | 5:28 AM | | procedure are in the | | AT,GLUC,CA,PHOS,ALB | | PDT | | results section. | | ) | | | | | + +--------+ + + + | CBC ONLY | Urgent | 09/07/2013 | | Results for this | | | | 5:28 AM | | procedure are in the | | | | PDT | | results section. | + +--------+ + + + | POTASSIUM, PLASMA | Urgent | 09/06/2013 | | Results for this | | | | 8:12 PM | | procedure are in the | | | | PDT | | results section. | + +--------+ + + + | CAPILLARY BLOOD | Routin | 09/06/2013 | | Results for this | | GLUCOSE (NO CHG), | e | 5:26 PM | | procedure are in the | | POC | | PDT | | results section. | + +--------+ + + + | CAPILLARY BLOOD | Routin | 09/06/2013 | | Results for this | | GLUCOSE (NO CHG), | e | 1:26 PM | | procedure are in the | | POC | | PDT | | results section. | + +--------+ + + + | CAPILLARY BLOOD | Routin | 09/06/2013 | | Results for this | | GLUCOSE (NO CHG), | e | 12:13 PM | | procedure are in the | | POC | | PDT | | results section. | + +--------+ + + + | CAPILLARY BLOOD | Routin | 09/06/2013 | | Results for this | | GLUCOSE (NO CHG), | e | 10:59 AM | | procedure are in the | | POC | | PDT | | results section. | + +--------+ + + + | CAPILLARY BLOOD | Routin | 09/06/2013 | | Results for this | | GLUCOSE (NO CHG), | e | 10:12 AM | | procedure are in the | | POC | | PDT | | results section. | + +--------+ + + + | CAPILLARY BLOOD | Routin | 09/06/2013 | | Results for this | | GLUCOSE (NO CHG), | e | 8:50 AM | | procedure are in the | | POC | | PDT | | results section. | + +--------+ + + + | CAPILLARY BLOOD | Routin | 09/06/2013 | | Results for this | | GLUCOSE (NO CHG), | e | 7:05 AM | | procedure are in the | | POC | | PDT | | results section. | + +--------+ + + + | X-RAY CHEST 1 VIEW | Urgent | 09/06/2013 | | Results for this | | | | 6:01 AM | | procedure are in the | | | | PDT | | results section. | + +--------+ + + + | CAPILLARY BLOOD | Routin | 09/06/2013 | | Results for this | | GLUCOSE (NO CHG), | e | 6:00 AM | | procedure are in the | | POC | | PDT | | results section. | + +--------+ + + + | CAPILLARY BLOOD | Routin | 09/06/2013 | | Results for this | | GLUCOSE (NO CHG), | e | 4:42 AM | | procedure are in the | | POC | | PDT | | results section. | + +--------+ + + + | CAPILLARY BLOOD | Routin | 09/06/2013 | | Results for this | | GLUCOSE (NO CHG), | e | 3:47 AM | | procedure are in the | | POC | | PDT | | results section. | + +--------+ + + + | CAPILLARY BLOOD | Routin | 09/06/2013 | | Results for this | | GLUCOSE (NO CHG), | e | 2:30 AM | | procedure are in the | | POC | | PDT | | results section. | + +--------+ + + + | CBC (HEMOGRAM) ONLY | Urgent | 09/06/2013 | | Results for this | | | | 2:23 AM | | procedure are in the | | | | PDT | | results section. | + +--------+ + + + | RENAL FUNCTION SET | Urgent | 09/06/2013 | | Results for this | | (NA,K,CL,CO2,BUN,CRE | | 2:23 AM | | procedure are in the | | AT,GLUC,CA,PHOS,ALB | | PDT | | results section. | | ) | | | | | + +--------+ + + + | CBC ONLY | Urgent | 09/06/2013 | | Results for this | | | | 2:23 AM | | procedure are in the | | | | PDT | | results section. | + +--------+ + + + | MAGNESIUM, PLASMA | Urgent | 09/06/2013 | | Results for this | | | | 2:23 AM | | procedure are in the | | | | PDT | | results section. | + +--------+ + + + | CAPILLARY BLOOD | Routin | 09/06/2013 | | Results for this | | GLUCOSE (NO CHG), | e | 1:46 AM | | procedure are in the | | POC | | PDT | | results section. | + +--------+ + + + | CAPILLARY BLOOD | Routin | 09/06/2013 | | Results for this | | GLUCOSE (NO CHG), | e | 12:36 AM | | procedure are in the | | POC | | PDT | | results section. | + +--------+ + + + | CAPILLARY BLOOD | Routin | 09/05/2013 | | Results for this | | GLUCOSE (NO CHG), | e | 11:28 PM | | procedure are in the | | POC | | PDT | | results section. | + +--------+ + + + | CAPILLARY BLOOD | Routin | 09/05/2013 | | Results for this | | GLUCOSE (NO CHG), | e | 10:07 PM | | procedure are in the | | POC | | PDT | | results section. | + +--------+ + + + | CAPILLARY BLOOD | Routin | 09/05/2013 | | Results for this | | GLUCOSE (NO CHG), | e | 9:10 PM | | procedure are in the | | POC | | PDT | | results section. | + +--------+ + + + | CAPILLARY BLOOD | Routin | 09/05/2013 | | Results for this | | GLUCOSE (NO CHG), | e | 8:08 PM | | procedure are in the | | POC | | PDT | | results section. | + +--------+ + + + | CAPILLARY BLOOD | Routin | 09/05/2013 | | Results for this | | GLUCOSE (NO CHG), | e | 6:52 PM | | procedure are in the | | POC | | PDT | | results section. | + +--------+ + + + | CAPILLARY BLOOD | Routin | 09/05/2013 | | Results for this | | GLUCOSE (NO CHG), | e | 6:10 PM | | procedure are in the | | POC | | PDT | | results section. | + +--------+ + + + | CAPILLARY BLOOD | Routin | 09/05/2013 | | Results for this | | GLUCOSE (NO CHG), | e | 4:56 PM | | procedure are in the | | POC | | PDT | | results section. | + +--------+ + + + | CAPILLARY BLOOD | Routin | 09/05/2013 | | Results for this | | GLUCOSE (NO CHG), | e | 4:06 PM | | procedure are in the | | POC | | PDT | | results section. | + +--------+ + + + | CAPILLARY BLOOD | Routin | 09/05/2013 | | Results for this | | GLUCOSE (NO CHG), | e | 2:01 PM | | procedure are in the | | POC | | PDT | | results section. | + +--------+ + + + | CAPILLARY BLOOD | Routin | 09/05/2013 | | Results for this | | GLUCOSE (NO CHG), | e | 12:53 PM | | procedure are in the | | POC | | PDT | | results section. | + +--------+ + + + | CAPILLARY BLOOD | Routin | 09/05/2013 | | Results for this | | GLUCOSE (NO CHG), | e | 11:45 AM | | procedure are in the | | POC | | PDT | | results section. | + +--------+ + + + | CAPILLARY BLOOD | Routin | 09/05/2013 | | Results for this | | GLUCOSE (NO CHG), | e | 10:10 AM | | procedure are in the | | POC | | PDT | | results section. | + +--------+ + + + | CAPILLARY BLOOD | Routin | 09/05/2013 | | Results for this | | GLUCOSE (NO CHG), | e | 9:00 AM | | procedure are in the | | POC | | PDT | | results section. | + +--------+ + + + | X-RAY CHEST 1 VIEW | Urgent | 09/05/2013 | | Results for this | | | | 5:51 AM | | procedure are in the | | | | PDT | | results section. | + +--------+ + + + | CALCIUM, IONIZED, | Urgent | 09/05/2013 | | Results for this | | WHOLE BLOOD | | 2:31 AM | | procedure are in the | | | | PDT | | results section. | + +--------+ + + + | CBC (HEMOGRAM) ONLY | Urgent | 09/05/2013 | | Results for this | | | | 1:21 AM | | procedure are in the | | | | PDT | | results section. | + +--------+ + + + | RENAL FUNCTION SET | Urgent | 09/05/2013 | | Results for this | | (NA,K,CL,CO2,BUN,CRE | | 1:21 AM | | procedure are in the | | AT,GLUC,CA,PHOS,ALB | | PDT | | results section. | | ) | | | | | + +--------+ + + + | CBC ONLY | Urgent | 09/05/2013 | | Results for this | | | | 1:21 AM | | procedure are in the | | | | PDT | | results section. | + +--------+ + + + | MAGNESIUM, PLASMA | Urgent | 09/05/2013 | | Results for this | | | | 1:21 AM | | procedure are in the | | | | PDT | | results section. | + +--------+ + + + | 12 LEAD ECG | Routin | 09/04/2013 | | Results for this | | | e | 7:06 PM | | procedure are in the | | | | PDT | | results section. | + +--------+ + + + | X-RAY CHEST 1 VIEW | Urgent | 09/04/2013 | | Results for this | | | | 6:22 PM | | procedure are in the | | | | PDT | | results section. | + +--------+ + + + | BLOOD GASES, | Urgent | 09/04/2013 | | Results for this | | ARTERIAL - LAB | | 6:09 PM | | procedure are in the | | | | PDT | | results section. | + +--------+ + + + | CBC (HEMOGRAM) ONLY | Urgent | 09/04/2013 | | Results for this | | | | 6:08 PM | | procedure are in the | | | | PDT | | results section. | + +--------+ + + + | INR | Urgent | 09/04/2013 | | Results for this | | | | 6:08 PM | | procedure are in the | | | | PDT | | results section. | + +--------+ + + + | RENAL FUNCTION SET | Urgent | 09/04/2013 | | Results for this | | (NA,K,CL,CO2,BUN,CRE | | 6:08 PM | | procedure are in the | | AT,GLUC,CA,PHOS,ALB | | PDT | | results section. | | ) | | | | | + +--------+ + + + | CBC ONLY | Urgent | 09/04/2013 | | Results for this | | | | 6:08 PM | | procedure are in the | | | | PDT | | results section. | + +--------+ + + + | APTT (ACT. PART. | Urgent | 09/04/2013 | | Results for this | | THROMBO TIME) | | 6:08 PM | | procedure are in the | | | | PDT | | results section. | + +--------+ + + + | CALCIUM, IONIZED, | Urgent | 09/04/2013 | | Results for this | | WHOLE BLOOD | | 6:08 PM | | procedure are in the | | | | PDT | | results section. | + +--------+ + + + | MAGNESIUM, PLASMA | Urgent | 09/04/2013 | | Results for this | | | | 6:08 PM | | procedure are in the | | | | PDT | | results section. | + +--------+ + + + | CAPILLARY BLOOD | Routin | 09/04/2013 | | Results for this | | GLUCOSE (NO CHG), | e | 6:02 PM | | procedure are in the | | POC | | PDT | | results section. | + +--------+ + + + | CBC (HEMOGRAM) ONLY | Extrem | 09/04/2013 | | Results for this | | | e | 5:15 PM | | procedure are in the | | | Emerge | PDT | | results section. | | | ncy | | | | + +--------+ + + + | PRODUCT - PLATELET | Routin | 09/04/2013 | | Results for this | | PHERESIS | e | 5:15 PM | | procedure are in the | | LEUKOREDUCED | | PDT | | results section. | + +--------+ + + + | PRODUCT - PLATELET | Routin | 09/04/2013 | | Results for this | | PHERESIS | e | 5:15 PM | | procedure are in the | | LEUKOREDUCED | | PDT | | results section. | + +--------+ + + + | CBC ONLY | Extrem | 09/04/2013 | | Results for this | | | e | 5:15 PM | | procedure are in the | | | Emerge | PDT | | results section. | | | ncy | | | | + +--------+ + + + | COAGULOPATHY PANEL | Extrem | 09/04/2013 | | Results for this | | (INR,APTT,FIBRINOGEN | e | 5:15 PM | | procedure are in the | | ) | Emerge | PDT | | results section. | | | ncy | | | | + +--------+ + + + | LACTATE (ART), POC | Routin | 09/04/2013 | Aortic aneurysm | Results for this | | ISTAT | e | 5:09 PM | without rupture | procedure are in the | | | | PDT | (HCC) | results section. | + +--------+ + + + | HEMOGLOBIN-COOX, POC | Routin | 09/04/2013 | Aortic aneurysm | Results for this | | | e | 5:09 PM | without rupture | procedure are in the | | | | PDT | ([facility]) | results section. | + +--------+ + + + | SODIUM, POC | Routin | 09/04/2013 | Aortic aneurysm | Results for this | | | e | 5:09 PM | without rupture | procedure are in the | | | | PDT | ([facility]) | results section. | + +--------+ + + + | POTASSIUM, POC | Routin | 09/04/2013 | Aortic aneurysm | Results for this | | | e | 5:09 PM | without rupture | procedure are in the | | | | PDT | ([facility]) | results section. | + +--------+ + + + | GLUCOSE, POC | Routin | 09/04/2013 | Aortic aneurysm | Results for this | | | e | 5:09 PM | without rupture | procedure are in the | | | | PDT | ([facility]) | results section. | + +--------+ + + + | ARTERIAL BLOOD GAS, | Routin | 09/04/2013 | Aortic aneurysm | Results for this | | POC | e | 5:09 PM | without rupture | procedure are in the | | | | PDT | ([facility]) | results section. | + +--------+ + + + | CHLORIDE, POC | Routin | 09/04/2013 | Aortic aneurysm | Results for this | | | e | 5:09 PM | without rupture | procedure are in the | | | | PDT | (HCC) | results section. | + +--------+ + + + | ALEXANDRA IONIZED CA, POC | Routin | 09/04/2013 | Aortic aneurysm | Results for this | | | e | 5:09 PM | without rupture | procedure are in the | | | | PDT | (HCC) | results section. | + +--------+ + + + | LACTATE (ART), POC | Routin | 09/04/2013 | Aortic aneurysm | Results for this | | ISTAT | e | 4:45 PM | without rupture | procedure are in the | | | | PDT | ([facility]) | results section. | + +--------+ + + + | HEMOGLOBIN-COOX, POC | Routin | 09/04/2013 | Aortic aneurysm | Results for this | | | e | 4:45 PM | without rupture | procedure are in the | | | | PDT | ([facility]) | results section. | + +--------+ + + + | SODIUM, POC | Routin | 09/04/2013 | Aortic aneurysm | Results for this | | | e | 4:45 PM | without rupture | procedure are in the | | | | PDT | ([facility]) | results section. | + +--------+ + + + | POTASSIUM, POC | Routin | 09/04/2013 | Aortic aneurysm | Results for this | | | e | 4:45 PM | without rupture | procedure are in the | | | | PDT | ([facility]) | results section. | + +--------+ + + + | GLUCOSE, POC | Routin | 09/04/2013 | Aortic aneurysm | Results for this | | | e | 4:45 PM | without rupture | procedure are in the | | | | PDT | ([facility]) | results section. | + +--------+ + + + | ARTERIAL BLOOD GAS, | Routin | 09/04/2013 | Aortic aneurysm | Results for this | | POC | e | 4:45 PM | without rupture | procedure are in the | | | | PDT | ([facility]) | results section. | + +--------+ + + + | CHLORIDE, POC | Routin | 09/04/2013 | Aortic aneurysm | Results for this | | | e | 4:45 PM | without rupture | procedure are in the | | | | PDT | ([facility]) | results section. | + +--------+ + + + | ALEXANDRA IONIZED CA, POC | Routin | 09/04/2013 | Aortic aneurysm | Results for this | | | e | 4:45 PM | without rupture | procedure are in the | | | | PDT | ([facility]) | results section. | + +--------+ + + + | LACTATE (ART), POC | Routin | 09/04/2013 | Aortic aneurysm | Results for this | | ISTAT | e | 4:15 PM | without rupture | procedure are in the | | | | PDT | ([facility]) | results section. | + +--------+ + + + | HEMOGLOBIN-COOX, POC | Routin | 09/04/2013 | Aortic aneurysm | Results for this | | | e | 4:15 PM | without rupture | procedure are in the | | | | PDT | ([facility]) | results section. | + +--------+ + + + | SODIUM, POC | Routin | 09/04/2013 | Aortic aneurysm | Results for this | | | e | 4:15 PM | without rupture | procedure are in the | | | | PDT | ([facility]) | results section. | + +--------+ + + + | POTASSIUM, POC | Routin | 09/04/2013 | Aortic aneurysm | Results for this | | | e | 4:15 PM | without rupture | procedure are in the | | | | PDT | ([facility]) | results section. | + +--------+ + + + | GLUCOSE, POC | Routin | 09/04/2013 | Aortic aneurysm | Results for this | | | e | 4:15 PM | without rupture | procedure are in the | | | | PDT | ([facility]) | results section. | + +--------+ + + + | ARTERIAL BLOOD GAS, | Routin | 09/04/2013 | Aortic aneurysm | Results for this | | POC | e | 4:15 PM | without rupture | procedure are in the | | | | PDT | ([facility]) | results section. | + +--------+ + + + | YOLANDE POC | Routin | 09/04/2013 | Aortic aneurysm | Results for this | | | e | 4:15 PM | without rupture | procedure are in the | | | | PDT | ([facility]) | results section. | + +--------+ + + + | ALEXANDRA ROBERT YOUNG POC | Routin | 09/04/2013 | Aortic aneurysm | Results for this | | | e | 4:15 PM | without rupture | procedure are in the | | | | PDT | ([facility]) | results section. | + +--------+ + + + | BECKY (SERJIO) POC | Routin | 09/04/2013 | Aortic aneurysm | Results for this | | ISTAT | e | 3:59 PM | without rupture | procedure are in the | | | | PDT | ([facility]) | results section. | + +--------+ + + + | HEMOGLOBIN-ANA POC | Routin | 09/04/2013 | Aortic aneurysm | Results for this | | | e | 3:59 PM | without rupture | procedure are in the | | | | PDT | ([facility]) | results section. | + +--------+ + + + | SODIUM, POC | Routin | 09/04/2013 | Aortic aneurysm | Results for this | | | e | 3:59 PM | without rupture | procedure are in the | | | | PDT | ([facility]) | results section. | + +--------+ + + + | POTASSIUM, POC | Routin | 09/04/2013 | Aortic aneurysm | Results for this | | | e | 3:59 PM | without rupture | procedure are in the | | | | PDT | ([facility]) | results section. | + +--------+ + + + | GLUCOSE, POC | Routin | 09/04/2013 | Aortic aneurysm | Results for this | | | e | 3:59 PM | without rupture | procedure are in the | | | | PDT | ([facility]) | results section. | + +--------+ + + + | ARTERIAL BLOOD GAS, | Routin | 09/04/2013 | Aortic aneurysm | Results for this | | POC | e | 3:59 PM | without rupture | procedure are in the | | | | PDT | ([facility]) | results section. | + +--------+ + + + | CHLORIDE, POC | Routin | 09/04/2013 | Aortic aneurysm | Results for this | | | e | 3:59 PM | without rupture | procedure are in the | | | | PDT | ([facility]CC) | results section. | + +--------+ + + + | ALEXANDRA IONIZED CA, POC | Routin | 09/04/2013 | Aortic aneurysm | Results for this | | | e | 3:59 PM | without rupture | procedure are in the | | | | PDT | (HCC) | results section. | + +--------+ + + + | LACTATE (ART), POC | Routin | 09/04/2013 | Aortic aneurysm | Results for this | | ISTAT | e | 3:33 PM | without rupture | procedure are in the | | | | PDT | ([facility]) | results section. | + +--------+ + + + | HEMOGLOBIN-ANA POC | Routin | 09/04/2013 | Aortic aneurysm | Results for this | | | e | 3:33 PM | without rupture | procedure are in the | | | | PDT | ([facility]) | results section. | + +--------+ + + + | SODIUM POC | Routin | 09/04/2013 | Aortic aneurysm | Results for this | | | e | 3:33 PM | without rupture | procedure are in the | | | | PDT | ([facility]) | results section. | + +--------+ + + + | POTASSIUM, POC | Routin | 09/04/2013 | Aortic aneurysm | Results for this | | | e | 3:33 PM | without rupture | procedure are in the | | | | PDT | ([facility]) | results section. | + +--------+ + + + | GLUCOSE, POC | Routin | 09/04/2013 | Aortic aneurysm | Results for this | | | e | 3:33 PM | without rupture | procedure are in the | | | | PDT | ([facility]) | results section. | + +--------+ + + + | ARTERIAL BLOOD GAS, | Routin | 09/04/2013 | Aortic aneurysm | Results for this | | POC | e | 3:33 PM | without rupture | procedure are in the | | | | PDT | ([facility]) | results section. | + +--------+ + + + | CHLORIDE, POC | Routin | 09/04/2013 | Aortic aneurysm | Results for this | | | e | 3:33 PM | without rupture | procedure are in the | | | | PDT | ([facility]) | results section. | + +--------+ + + + | ALEXANDRA IONIZED CA, POC | Routin | 09/04/2013 | Aortic aneurysm | Results for this | | | e | 3:33 PM | without rupture | procedure are in the | | | | PDT | ([facility]) | results section. | + +--------+ + + + | LACTATE (ART), POC | Routin | 09/04/2013 | Aortic aneurysm | Results for this | | ISTAT | e | 3:02 PM | without rupture | procedure are in the | | | | PDT | ([facility]) | results section. | + +--------+ + + + | HEMOGLOBIN-COOX, POC | Routin | 09/04/2013 | Aortic aneurysm | Results for this | | | e | 3:02 PM | without rupture | procedure are in the | | | | PDT | ([facility]) | results section. | + +--------+ + + + | SODIUM, POC | Routin | 09/04/2013 | Aortic aneurysm | Results for this | | | e | 3:02 PM | without rupture | procedure are in the | | | | PDT | ([facility]) | results section. | + +--------+ + + + | POTASSIUM, POC | Routin | 09/04/2013 | Aortic aneurysm | Results for this | | | e | 3:02 PM | without rupture | procedure are in the | | | | PDT | ([facility]CC) | results section. | + +--------+ + + + | GLUCOSE, POC | Routin | 09/04/2013 | Aortic aneurysm | Results for this | | | e | 3:02 PM | without rupture | procedure are in the | | | | PDT | ([facility]CC) | results section. | + +--------+ + + + | ARTERIAL BLOOD GAS, | Routin | 09/04/2013 | Aortic aneurysm | Results for this | | POC | e | 3:02 PM | without rupture | procedure are in the | | | | PDT | ([facility]CC) | results section. | + +--------+ + + + | CHLORIDE, POC | Routin | 09/04/2013 | Aortic aneurysm | Results for this | | | e | 3:02 PM | without rupture | procedure are in the | | | | PDT | ([facility]) | results section. | + +--------+ + + + | ALEXANDRA ROBERT CA, POC | Routin | 09/04/2013 | Aortic aneurysm | Results for this | | | e | 3:02 PM | without rupture | procedure are in the | | | | PDT | ([facility]) | results section. | + +--------+ + + + | LACTATE (ART), POC | Routin | 09/04/2013 | Aortic aneurysm | Results for this | | ISTAT | e | 2:07 PM | without rupture | procedure are in the | | | | PDT | (HCC) | results section. | + +--------+ + + + | HEMOGLOBIN-COOX, POC | Routin | 09/04/2013 | Aortic aneurysm | Results for this | | | e | 2:07 PM | without rupture | procedure are in the | | | | PDT | ([facility]) | results section. | + +--------+ + + + | SODIUM, POC | Routin | 09/04/2013 | Aortic aneurysm | Results for this | | | e | 2:07 PM | without rupture | procedure are in the | | | | PDT | ([facility]) | results section. | + +--------+ + + + | POTASSIUM, POC | Routin | 09/04/2013 | Aortic aneurysm | Results for this | | | e | 2:07 PM | without rupture | procedure are in the | | | | PDT | ([facility]) | results section. | + +--------+ + + + | GLUCOSE, POC | Routin | 09/04/2013 | Aortic aneurysm | Results for this | | | e | 2:07 PM | without rupture | procedure are in the | | | | PDT | ([facility]) | results section. | + +--------+ + + + | ARTERIAL BLOOD GAS, | Routin | 09/04/2013 | Aortic aneurysm | Results for this | | POC | e | 2:07 PM | without rupture | procedure are in the | | | | PDT | ([facility]) | results section. | + +--------+ + + + | CHLORIDE, POC | Routin | 09/04/2013 | Aortic aneurysm | Results for this | | | e | 2:07 PM | without rupture | procedure are in the | | | | PDT | ([facility]) | results section. | + +--------+ + + + | ALEXANDRA IONIZED CA, POC | Routin | 09/04/2013 | Aortic aneurysm | Results for this | | | e | 2:07 PM | without rupture | procedure are in the | | | | PDT | ([facility]) | results section. | + +--------+ + + + | ASCENDING AORTIC | Electi | 09/04/2013 | Aortic aneurysm of | | | RECONSTRUCTION | ve | 1:21 PM | unspecified site | | | | Surgic | PDT | without mention of | | | | al | | rupture | | + +--------+ + + + +---+--------+ | | | | | Specia | | | l | | | Needs | | | ICU | | | POST | +---+--------+ + +--------+ +---+ + | CAPILLARY BLOOD | Routin | 09/04/2013 | | Results for this | | GLUCOSE (NO CHG), | e | 8:24 AM | | procedure are in the | | POC | | PDT | | results section. | + +--------+ +---+ + | CBC (HEMOGRAM) ONLY | Urgent | 09/04/2013 | | Results for this | | | | 2:02 AM | | procedure are in the | | | | PDT | | results section. | + +--------+ +---+ + | RENAL FUNCTION SET | Urgent | 09/04/2013 | | Results for this | | (NA,K,CL,CO2,BUN,CRE | | 2:02 AM | | procedure are in the | | AT,GLUC,CA,PHOS,ALB | | PDT | | results section. | | ) | | | | | + +--------+ +---+ + | CBC ONLY | Urgent | 09/04/2013 | | Results for this | | | | 2:02 AM | | procedure are in the | | | | PDT | | results section. | + +--------+ +---+ + | MAGNESIUM, PLASMA | Urgent | 09/04/2013 | | Results for this | | | | 2:02 AM | | procedure are in the | | | | PDT | | results section. | + +--------+ +---+ + | SURGICAL PATHOLOGY | Routin | 09/04/2013 | | Results for this | | | e | | | procedure are in the | | | | | | results section. | + +--------+ +---+ + | CAPILLARY BLOOD | Routin | 09/03/2013 | | Results for this | | GLUCOSE (NO CHG), | e | 9:35 PM | | procedure are in the | | POC | | PDT | | results section. | + +--------+ +---+ + | CAPILLARY BLOOD | Routin | 09/03/2013 | | Results for this | | GLUCOSE (NO CHG), | e | 4:08 PM | | procedure are in the | | POC | | PDT | | results section. | + +--------+ +---+ + | PRODUCT - PLATELET | Routin | 09/03/2013 | | Results for this | | PHERESIS | e | 3:25 PM | | procedure are in the | | LEUKOREDUCED | | PDT | | results section. | + +--------+ +---+ + | PRODUCT - PLATELET | Routin | 09/03/2013 | | Results for this | | PHERESIS | e | 3:25 PM | | procedure are in the | | LEUKOREDUCED | | PDT | | results section. | + +--------+ +---+ + | PRODUCT - FRESH | Routin | 09/03/2013 | | Results for this | | FROZEN PLASMA | e | 3:25 PM | | procedure are in the | | | | PDT | | results section. | + +--------+ +---+ + | PRODUCT - FRESH | Routin | 09/03/2013 | | Results for this | | FROZEN PLASMA | e | 3:25 PM | | procedure are in the | | | | PDT | | results section. | + +--------+ +---+ + | CAPILLARY BLOOD | Routin | 09/03/2013 | | Results for this | | GLUCOSE (NO CHG), | e | 12:37 PM | | procedure are in the | | POC | | PDT | | results section. | + +--------+ +---+ + | UA, DIPSTICK ONLY | Urgent | 09/03/2013 | | Results for this | | | | 11:31 AM | | procedure are in the | | | | PDT | | results section. | + +--------+ +---+ + | URINE, MICROSCOPIC | Urgent | 09/03/2013 | | Results for this | | EXAM | | 11:31 AM | | procedure are in the | | | | PDT | | results section. | + +--------+ +---+ + | URINE SCREEN FOR | Urgent | 09/03/2013 | | Results for this | | CULTURE | | 11:31 AM | | procedure are in the | | | | PDT | | results section. | + +--------+ +---+ + | CAPILLARY BLOOD | Routin | 09/03/2013 | | Results for this | | GLUCOSE (NO CHG), | e | 8:42 AM | | procedure are in the | | POC | | PDT | | results section. | + +--------+ +---+ + | CBC (HEMOGRAM) ONLY | Routin | 09/03/2013 | | Results for this | | | e | 12:06 AM | | procedure are in the | | | | PDT | | results section. | + +--------+ +---+ + | RENAL FUNCTION SET | Urgent | 09/03/2013 | | Results for this | | (NA,K,CL,CO2,BUN,CRE | | 12:06 AM | | procedure are in the | | AT,GLUC,CA,PHOS,ALB | | PDT | | results section. | | ) | | | | | + +--------+ +---+ + | CBC ONLY | Routin | 09/03/2013 | | Results for this | | | e | 12:06 AM | | procedure are in the | | | | PDT | | results section. | + +--------+ +---+ + | MAGNESIUM, PLASMA | Urgent | 09/03/2013 | | Results for this | | | | 12:06 AM | | procedure are in the | | | | PDT | | results section. | + +--------+ +---+ + | CAPILLARY BLOOD | Routin | 09/02/2013 | | Results for this | | GLUCOSE (NO CHG), | e | 6:06 AM | | procedure are in the | | POC | | PDT | | results section. | + +--------+ +---+ + | CAPILLARY BLOOD | Routin | 09/02/2013 | | Results for this | | GLUCOSE (NO CHG), | e | 2:59 AM | | procedure are in the | | POC | | PDT | | results section. | + +--------+ +---+ + | CBC (HEMOGRAM) ONLY | Urgent | 09/02/2013 | | Results for this | | | | 2:55 AM | | procedure are in the | | | | PDT | | results section. | + +--------+ +---+ + | RENAL FUNCTION SET | Urgent | 09/02/2013 | | Results for this | | (NA,K,CL,CO2,BUN,CRE | | 2:55 AM | | procedure are in the | | AT,GLUC,CA,PHOS,ALB | | PDT | | results section. | | ) | | | | | + +--------+ +---+ + | CBC ONLY | Urgent | 09/02/2013 | | Results for this | | | | 2:55 AM | | procedure are in the | | | | PDT | | results section. | + +--------+ +---+ + | MAGNESIUM, PLASMA | Urgent | 09/02/2013 | | Results for this | | | | 2:55 AM | | procedure are in the | | | | PDT | | results section. | + +--------+ +---+ + | TRANSTHORACIC | Urgent | 09/02/2013 | | Results for this | | ECHOCARDIOGRAM, | | 12:00 AM | | procedure are in the | | ADULT | | PDT | | results section. | + +--------+ +---+ + | X-RAY PORTABLE CHEST | Routin | 09/01/2013 | | Results for this | | 1 VIEW | e | 10:43 PM | | procedure are in the | | | | PDT | | results section. | + +--------+ +---+ + | ANTIBODY SCREEN | Urgent | 09/01/2013 | | Results for this | | | | 9:09 PM | | procedure are in the | | | | PDT | | results section. | + +--------+ +---+ + | TYPE AND SCREEN | Urgent | 09/01/2013 | | Results for this | | | | 9:09 PM | | procedure are in the | | | | PDT | | results section. | + +--------+ +---+ + | ABO & RH TYPE | Urgent | 09/01/2013 | | Results for this | | | | 9:09 PM | | procedure are in the | | | | PDT | | results section. | + +--------+ +---+ + | CBC (HEMOGRAM) ONLY | Urgent | 09/01/2013 | | Results for this | | | | 9:08 PM | | procedure are in the | | | | PDT | | results section. | + +--------+ +---+ + | RENAL FUNCTION SET | Urgent | 09/01/2013 | | Results for this | | (NA,K,CL,CO2,BUN,CRE | | 9:08 PM | | procedure are in the | | AT,GLUC,CA,PHOS,ALB | | PDT | | results section. | | ) | | | | | + +--------+ +---+ + | CBC ONLY | Urgent | 09/01/2013 | | Results for this | | | | 9:08 PM | | procedure are in the | | | | PDT | | results section. | + +--------+ +---+ + | COAGULOPATHY PANEL | Urgent | 09/01/2013 | | Results for this | | (INR,APTT,FIBRINOGEN | | 9:08 PM | | procedure are in the | | ) | | PDT | | results section. | + +--------+ +---+ + | MAGNESIUM, PLASMA | Urgent | 09/01/2013 | | Results for this | | | | 9:08 PM | | procedure are in the | | | | PDT | | results section. | + +--------+ +---+ + | CAPILLARY BLOOD | Routin | 09/01/2013 | | Results for this | | GLUCOSE (NO CHG), | e | 8:41 PM | | procedure are in the | | POC | | PDT | | results section. | + +--------+ +---+ + | 12 LEAD ECG | Routin | 09/01/2013 | | Results for this | | | e | 8:19 PM | | procedure are in the | | | | PDT | | results section. | + +--------+ +---+ + | PERFUSION | | 09/01/2013 | | | | | | 12:00 AM | | | | | | PDT | | | + +--------+ +---+ + documented in this encounter Results ARTERIAL LINE NOTEWRITER DOCUMENTATION (06/16/2015 7:24 PM PST)PROCEDURE NOTE (06/16/2015 7:22 PM PST)PROCEDURE NOTE (06/16/2015 7:16 PM PST) + + | Transcriptions | + + | Maria A Vizcaino - 09/10/2013 11:35 PM PDT | + + X-RAY CHEST 2 VIEW (09/09/2013 9:34 AM PDT) + + + + + + | Component | Value | Ref Range | Performed | Pathologist | | | | | At | Signature | + + + + + + | CHEST, 2 | STUDY: CHEST 2 VIEWS | | | | | VIEWS [place] | 09/09/13 09:34:00 | | | | | STEREO | COMPARISON: 09/08/13. | | | | | | HISTORY: Post operative | | | | | | examination. FINDINGS: | | | | | | Median sternotomy wires | | | | | | as before. Cardiac and | | | | | | mediastinal contours | | | | | | aren't changed. There is | | | | | | minimal bibasilar | | | | | | atelectasis. Otherwise, | | | | | | the lungs are clear. | | | | | | Thereis no pneumothorax | | | | | | or significant pleural | | | | | | effusion. There is no | | | | | | focalconsolidation. | | | | | | IMPRESSION: Improved | | | | | | minimal bibasilar | | | | | | atelectasis. Otherwise, | | | | | | clear lungs. Attending | | | | | | Radiologists: KRUPA | | | | | | RUCHI MDAuthor: | | | | | | MAIKEL DUQUE MD I | | | | | | have personally viewed | | | | | | this procedure/exam, | | | | | | reviewed this report, | | | | | | and madechanges to it | | | | | | where appropriate. | | | | | | Final/Electronically | | | | | | signed / KRUPA | | | | | | RUCHI 09/09/2013 11:07 | | | | | | AM | | | | + + + + + + + + | Specimen | + + | | + + + +---------+ + + | Performing | Address | City/State/Zipcode | Phone Number | | Organization | | | | + +---------+ + + | [facility] | | | | [facility] | | | | + +---------+ + + CAPILLARY BLOOD GLUCOSE (NO CHG), POC (09/08/2013 10:27 PM PDT) + +-------+ + + + | Component | Value | Ref Range | Performed | Pathologist | | | | | At | Signature | + +-------+ + + + | BLOOD | 96 | 60 - 99 mg/dL | [facility] | | | GLU[facility]SE, | | | [facility] | | | POC | | | [facility] | | | | | | OF CARE | | | | | | TESTS | | + +-------+ + + + + + | Specimen | + + | | + + + + + + + | Performing | Address | City/State/Zipcode | Phone Number | | Organization | | | | + + + + + | [facility] | [address] | [place], [place] | | | [facility] | [address] | [address] | | | TESTS | | | | + + + + + CAPILLARY BLOOD GLUCOSE (NO CHG), POC (09/08/2013 5:55 PM PDT) + +-------+ + + + | Component | Value | Ref Range | Performed | Pathologist | | | | | At | Signature | + +-------+ + + + | BLOOD | 86 | 60 - 99 mg/dL | [facility] | | | GLUCOSE, | | | [facility] | | | POC | | | [facility] | | | | | | OF CARE | | | | | | TESTS | | + +-------+ + + + + + | Specimen | + + | | + + + + + + + | Performing | Address | City/State/Zipcode | Phone Number | | Organization | | | | + + + + + | [facility] | [address] | [place], [place] | | | [facility] | [address] | [address] | | | TESTS | | | | + + + + + CAPILLARY BLOOD GLUCOSE (NO CHG), POC (09/08/2013 12:26 PM PDT) + +-------+ + + + | Component | Value | Ref Range | Performed | Pathologist | | | | | At | Signature | + +-------+ + + + | BLOOD | 88 | 60 - 99 mg/dL | [facility] | | | GLUCOSE, | | | [facility] | | | POC | | | [place] | | | | | | OF CARE | | | | | | TESTS | | + +-------+ + + + + + | Specimen | + + | | + + + + + + + | Performing | Address | City/State/Zipcode | Phone Number | | Organization | | | | + + + + + | [facility] | [address] | [place], [place] | | | [facility] | [facility] | [address] | | | TESTS | | | | + + + + + X-RAY PORTABLE CHEST 1 VIEW (09/08/2013 9:51 AM PDT) + + + + + + | Component | Value | Ref Range | Performed | Pathologist | | | | | At | Signature | + + + + + + | X-RAY | STUDY: AL CHEST 1 VIEW | | | | | PORTABLE | 09/08/13 08:55:00 | | | | | CHEST 1 | HISTORY: History of | | | | | VIEW | ascending aortic | | | | | | aneurysm repair | | | | | | COMPARISON: 09/06/13. | | | | | | FINDINGS: Median | | | | | | sternotomy cerclage | | | | | | wires are redemonstrated | | | | | | intact. Low lung | | | | | | volumes with vascular | | | | | | indistinctness and | | | | | | scattered | | | | | | multifocalgroundglass | | | | | | opacities is | | | | | | redemonstrated. The | | | | | | trace right pleural | | | | | | effusion isless | | | | | | conspicuous. There is | | | | | | no pneumothorax. | | | | | | Cardiomegaly is stable | | | | | | inappearance. | | | | | | IMPRESSION: Improving | | | | | | pulmonary edema. | | | | | | Attending Radiologists: | | | | | | GORAN ROSS, MDAuthor: | | | | | | SAGAR CORONEL MD I have | | | | | | personally viewed this | | | | | | procedure/exam, reviewed | | | | | | this report, and | | | | | | madechanges to it where | | | | | | appropriate. | | | | | | Final/Electronically | | | | | | signed / GORAN | | | | | | FUSS 09/08/2013 11:15 AM | | | | | | | | | | + + + + + + + + | Specimen | + + | | + + + +---------+ + + | Performing | Address | City/State/Zipcode | Phone Number | | Organization | | | | + +---------+ + + | [facility] | | | | | [facility]OLOG[facility] | | | | + +---------+ + + BASIC METABOLIC SET (NA, K, CL, TCO2, BUN, CR, GLU, CA) (09/08/2013 8:44 AM PDT) + + + + + + | Component | Value | Ref Range | Performed | Pathologist | | | | | At | Signature | + + + + + + | GLUCOSE, | 142 (H) | 60 - 99 mg/dL | [facility] | | | PLASMA | | | LABORATORY | | | (LAB) | | | SERVICES, | | | | | | CORE | | + + + + + + | BUN, PLASMA | 8 | 6 - 20 mg/dL | [facility] [...] | | | LABORATORY | | | [facility] | | | SERVICES, | | | | | | CORE | | + + + + + + | EGFR NON | >60 | >60 mL/min | [facility] | | | -DEID[facility] | | | LABORATORY | | | RICAN | | | SERVICES, | | | | | | CORE | | + + + + + + | SODIUM, | 135 (L) | 136 - 145 | [facility] | | | PLASMA | | mmol/L | LABORATORY | | | (LAB) | | | SERVICES, | | | | | | CORE | | + + + + + + | POTASSIUM, | 3.2 (L) | 3.4 - 5.0 | [facility] | | | PLASMA | | mmol/L | LABORATORY | | | (LAB) | | | SERVICES, | | | | | | CORE | | + + + + + + | CHLORIDE, | 103 | 97 - 108 mmol/L | [facility] | | | PLASMA | | | LABORATORY | | | (LAB) | | | SERVICES, | | | | | | CORE | | + + + + + + | TOTAL CO2, | 23 | 21 - 32 mmol/L | [facility] | | | PLASMA | | | LABORATORY | | | (LAB) | | | SERVICES, | | | | | | CORE | | + + + + + + | CALCIUM, | 8.4 (L) | 8.6 - 10.2 | [facility] | | | PLASMA | | mg/dL | LABORATORY | | | (LAB) | | | SERVICES, | | | | | | CORE | | + + + + + + | ANION GAP | 9 | mmol/L | [facility] | | | | [...] + + | Blood - Blood | + + + + + | Narrative | Performed At | + + + | GFR is estimated using the MDRD equation recommended by the | [facility] | | National Kidney Disease Education Program. Estimated GFR | LABORATORY | | Interpretive Information: <60 mL/min/1.73 sq m | [facility], RUDY | | Chronic Kidney Disease <15 mL/min/1.73 sq m | | | Kidney Failure Estimated GFR greater that 60 mL/min/1.73 sq m is of | | | limited clinical value. The MDRD equation is not valid in the | | | following situations: - Patients under 18 years of age - Severe | | | malnutrition or obesity - Vegetarian diet - Rapidly changing kidney | | | function | | + + + + + + + + | Performing | Address | City/State/Zipcode | Phone Number | | Organization | | | | + + + + + | [facility] | [address] | [place] [address] | | | RUDY FELDER | [address] | | | + + + + + CAPILLARY BLOOD GLUCOSE (NO CHG), POC (09/08/2013 6:58 AM PDT) + +---------+ + + + | Component | Value | Ref Range | Performed | Pathologist | | | | | At | Signature | + +---------+ + + + | BLOOD | 117 (H) | 60 - 99 mg/dL | [facility] | [...] + | [facility] | [address] | [place], [place] | | | [facility] | [address] | [address] | | | TESTS | | | | + + + + + CAPILLARY BLOOD GLUCOSE (NO CHG), POC (09/07/2013 9:07 PM PDT) + +---------+ + + + | Component | Value | Ref Range | Performed | Pathologist | | | | | At | Signature | + +---------+ + + + | BLOOD | 191 (H) | 60 - 99 mg/dL | [facility] | | | GLUCOSE, | | [...] + + + + + | [facility] | [address] | [place], [place] | | | [facility] | [address] | [address] | | | TESTS | | | | + + + + + CAPILLARY BLOOD GLUCOSE (NO CHG), POC (09/07/2013 4:57 PM PDT) + +---------+ + + + | Component | Value | Ref Range | Performed | Pathologist | | | | | At | Signature | + +---------+ + + + | BLOOD | 108 (H) | 60 - 99 mg/dL | [facility] | [...] | [facility] | [address] | [place], [place] | | | [facility] | [address] | [address] | | | TESTS | | | | + + + + + 12 LEAD ECG (09/07/2013 11:24 AM PDT) + + + + + + | Component | Value | Ref Range | Performed | Pathologist | | | | | At | Signature | + + + + + + | VENTRICULAR | 93 | BPM | [facility] | | | RATE | | | OF | | | | | | CARDIOLOGY | | + + + + + + | ATRIAL RATE | 93 | BPM | [facility] | | | | | | OF | | | | | | CARDIOLOGY | | + + + + + + | P-R | 170 | ms | [facility] | | | INTERVAL | | | OF | | | | | | CARDIOLOGY | | + + + + + + | QRS | 92 | ms | [facility] | | | DURATION | | | OF | | | | | | CARDIOLOGY | | + + + + + + | QT | 360 | ms | [facility] | | | | | | OF | | | | | | CARDIOLOGY | | + + + + + + | QTC | 447 | ms | [facility] | | | | | | OF | | | | | | CARDIOLOGY | | + + + + + + | P AXIS | -2 | degrees | [facility] | | | | | | OF | | | | | | CARDIOLOGY | | + + + + + + | R AXIS | -28 | degrees | [facility] | | | | | | OF | | | | | | CARDIOLOGY | | + + + + + + | T AXIS | 3 | degrees | [facility] | | | | | | OF | | | | | | CARDIOLOGY | | + + + + + + | EKG | Poor data quality, | | [facility] | | | DIAGNOSIS | interpretation may be | | OF | | | | adversely affectedSinus | | CARDIOLOGY | | | | rhythm with Premature | | | | | | supraventricular | | | | | | complexes with | | | | | | occasional Premature | | | | | | ventricular | | | | | | complexesModerate | | | | | | voltage criteria for | | | | | | LVH, may be normal | | | | | | variantBorderline ECG"I | | | | | | have personally | | | | | | interpreted this report, | | | | | | either alone or with a | | | | | | trainee."Confirmed by | | | | | | RICHARD SANABRIA ([id number]) on | | | | | | 09/10/2013 9:39:12 AM | | | | + + + + + + + + | Specimen | + + | | + + + + + | Narrative | Performed At | + + + | Please click | [facility] | | on view image for the detailed interpretation from [facility] results. | CARDIOLOGY | + + + + + | Procedure Note | + + | Interface, Cardiology Results - 09/10/2013 9:39 AM PDT Please click on view image | | for the detailed interpretation from [employer] results. | + + + + + + + | Performing | Address | City/State/Zipcode | Phone Number | | Organization | | | | + + + + + | [facility] | [address] | [place], [place] | | | CARDIOLOGY | [address] | [address] | | + + + + + CAPILLARY BLOOD GLUCOSE (NO CHG), POC (09/07/2013 8:27 AM PDT) + +---------+ + + + | Component | Value | Ref Range | Performed | Pathologist | | | | | At | Signature | + +---------+ + + + | BLOOD | 135 (H) | 60 - 99 mg/dL | [facility] - | | | GLUCOSE, | | | [facility] | | | POC | | | [facility] | | | | | | OF CARE | | | | | | TESTS | | + +---------+ + + + + + | Specimen | + + | | + + + + + + + | Performing | Address | City/State/Zipcode | Phone Number | | Organization | | | | + + + + + | [facility] | [address] | [place], [place] | | | [facility] | [facility] | [address] | | | TESTS | | | | + + + + + CBC (HEMOGRAM) ONLY (09/07/2013 5:28 AM PDT) + + + + + + | Component | Value | Ref Range | Performed | Pathologist | | | | | At | Signature | + + + + + + | WHITE CELL | 13.70 (H) | 4.40 - 11.00 | [facility] | | | COUNT | | K/cu mm | LABORATORY | | | | | | SERVICES, | | | | | | CORE | | + + + + + + | RED CELL | 3.52 (L) | 4.50 - 6.00 | [facility] | | | COUNT | | M/cu mm | LABORATORY | | | | | | SERVICES, | | | | | | CORE | | + + + + + + | HEMOGLOBIN | 10.6 (L) | 13.5 - 17.5 | [facility] | | | | | g/dL | LABORATORY | | | | | | SERVICES, | | | | | | CORE | | + + + + + + | HEMATOCRIT | 31.5 (L) | 41.0 - 53.0 % | [facility] | | | | | | LABORATORY | | | | | | SERVICES, | | | | | | CORE | | + + + + + + | MCV | 89.5 | 80.0 - 96.0 fL | [facility] | | | | | | LABORATORY | | | | | | SERVICES, | | | | | | CORE | | + + + + + + | MCHC | 33.7 | 33.0 - 35.5 | [facility] | | | | | g/dL | LABORATORY | | | | | | SERVICES, | | | | | | CORE | | + + + + + + | RDW SD | 44.9 | 35.1 - 46.3 fL | [facility] | | | | | | LABORATORY | | | | | | SERVICES, | | | | | | CORE | | + + + + + + | PLATELET | 192 | 150 - 400 K/cu | [facility] | | | COUNT | | mm | LABORATORY | | | | | | SERVICES, | | | | | | CORE | | + + + + + + | MPV | 10.5 | 9.7 - 12.3 fL | [facility] [...] + + | Blood - Blood | + + + + + + + | Performing | Address | City/State/Zipcode | Phone Number | | Organization | | | | + + + + + | [facility] | [address] | [place] [address] | | | [facility], CORE | [address] | | | + + + + + RENAL FUNCTION SET (NA,K,CL,CO2,BUN,CREAT,GLUC,CA,PHOS,ALB ) (09/07/2013 5:28 AM PDT) + + + + + + | Component | Value | Ref Range | Performed | Pathologist | | | | | At | Signature | + + + + + + | GLUCOSE, | 94 | 60 - 99 mg/dL | [facility] | | | PLASMA | | | LABORATORY | | | (LAB) | | | SERVICES, | | | | | | CORE | | + + + + + + | BUN, PLASMA | 10 | 6 - 20 mg/dL | [facility] | | | (LAB) | | | LABORATORY | | | | | | SERVICES, | | | | | | CORE | | + + + + + + | CREATININE | 0.64 (L) | 0.70 - 1.30 | [facility] | | | PLASMA | | mg/dL | LABORATORY | | | (LAB) | | | SERVICES, | | | | | | CORE | | + + + + + + | EGFR | >60 | >60 mL/min | [facility] | | | - | | | LABORATORY | | | [facility] | | | SERVICES, | | | [...] + + + + | POTASSIUM, | 3.3 (L) | 3.4 - 5.0 | [facility] | | | PLASMA | | mmol/L | LABORATORY | | | (LAB) | | | SERVICES, | | | | | | CORE | | + + + + + + | CHLORIDE, | 95 (L) | 97 - 108 mmol/L | [facility] | | | PLASMA | | | LABORATORY | | | (LAB) | | | SERVICES, | | | | | | CORE | | + + + + + + | TOTAL CO2, | 24 | 21 - 32 mmol/L | [facility] | | | PLASMA | | | LABORATORY | | | (LAB) | | | SERVICES, | | | | | | CORE | | + + + + + + | CALCIUM, | 8.5 (L) | 8.6 - 10.2 | [facility] | | | PLASMA | | mg/dL | LABORATORY | | | (LAB) | | | SERVICES, | | | | | | CORE | | + + + + + + | ALBUMIN, | 3.2 (L) | 3.5 - 4.7 g/dL | [facility] | | | PLASMA | | | LABORATORY | | | (LAB) | | | SERVICES, | | | | | | CORE | | + + + + + + | PHOSPHORUS, | 2.0 (L) | 2.4 - 4.7 mg/dL | [facility] [...] + + + | ANION GAP | 11 | mmol/L | [facility] | | | | | | LABORATORY | | | | | | SERVICES, | | | | | | CORE | | + + + + + + | ANION | 13 (H) | 4 - 11 mmol/L | [facility] | | | GAP(ALB | | | LABORATORY | | | CORRECTED) | | | SERVICES, | | | | | | CORE | | + + + + + + + + | Specimen | + + | Blood - Blood | + + + + + | Narrative | Performed At | + + + | GFR is estimated using the MDRD equation recommended by the | [facility] | | National Kidney Disease Education Program. Estimated GFR | LABORATORY | | Interpretive Information: <60 mL/min/1.73 sq m | SERVICES, CORE | | Chronic Kidney Disease <15 mL/min/1.73 sq m | | | Kidney Failure Estimated GFR greater that 60 mL/min/1.73 sq m is of | | | limited clinical value. The MDRD equation is not valid in the | | | following situations: - Patients under 18 years of age - Severe | | | malnutrition or obesity - Vegetarian diet - Rapidly changing kidney | | | function | | + + + + + + + + | Performing | Address | City/State/Zipcode | Phone Number | | Organization | | | | + + + + + | [facility] | [address] | [place] [address] | | | SERVICES, CORE | [address] | | | + + + + + POTASSIUM, PLASMA (09/06/2013 8:12 PM PDT) + +---------+ + + + | Component | Value | Ref Range | Performed | Pathologist | | | | | At | Signature | + +---------+ + + + | POTASSIUM, | 3.2 (L) | 3.4 - 5.0 | [facility] | [...] + + | Blood - Blood | + + + + + + + | Performing | Address | City/State/Zipcode | Phone Number | | Organization | | | | + + + + + | [facility] | [address] | [place] [address] | | | SERVICES, CORE | [address] | | | + + + + + CAPILLARY BLOOD GLUCOSE (NO CHG), POC (09/06/2013 5:26 PM PDT) + +---------+ + + + | Component | Value | Ref Range | Performed | Pathologist | | | | | At | Signature | + +---------+ + + + | BLOOD | 132 (H) | 60 - 99 mg/dL | [facility] | [...] + | [facility] | [address] | [place], [place] | | | DOM [facility]INT [facility] CARE | [address] | [address] | | | TESTS | | | | + + + + + CAPILLARY BLOOD GLUCOSE (NO CHG), POC (09/06/2013 1:26 PM PDT) + +---------+ + + + | Component | Value | Ref Range | Performed | Pathologist | | | | | At | Signature | + +---------+ + + + | BLOOD | 122 (H) | 60 - 99 mg/dL | [facility] | | | [facility], | | [...] + + + + + | [facility] | [address] | [place], [place] | | | [facility] | [address] | [address] | | | TESTS | | | | + + + + + CAPILLARY BLOOD GLUCOSE (NO CHG), POC (09/06/2013 12:13 PM PDT) + +---------+ + + + | Component | Value | Ref Range | Performed | Pathologist | | | | | At | Signature | + +---------+ + + + | BLOOD | 123 (H) | 60 - 99 mg/dL | [facility] | [...] | [facility] | [address] | [place], [place] | | | [facility] | [address] | [address] | | | TESTS | | | | + + + + + CAPILLARY BLOOD GLUCOSE (NO CHG), POC (09/06/2013 10:59 AM PDT) + +---------+ + + + | Component | Value | Ref Range | Performed | Pathologist | | | | | At | Signature | + +---------+ + + + | BLOOD | 133 (H) | 60 - 99 mg/dL | [facility] | [...] + | [facility] | [address] | [place], [place] | | | DOM POINT OF CARE | [address] | [address] | | | TESTS | | | | + + + + + CAPILLARY BLOOD GLUCOSE (NO CHG), POC (09/06/2013 10:12 AM PDT) + +---------+ + + + | Component | Value | Ref Range | Performed | Pathologist | | | | | At | Signature | + +---------+ + + + | BLOOD | 173 (H) | 60 - 99 mg/dL | [facility] - | | | GLUCOSE, | | [...] + + + + + | [facility] | [address] | [place], [place] | | | [facility] | [address] | [address] | | | TESTS | | | | + + + + + CAPILLARY BLOOD GLUCOSE (NO CHG), POC (09/06/2013 8:50 AM PDT) + +---------+ + + + | Component | Value | Ref Range | Performed | Pathologist | | | | | At | Signature | + +---------+ + + + | BLOOD | 105 (H) | 60 - 99 mg/dL | [facility] | [...] | [facility] | [address] | [place], [place] | | | [facility] [place] | [address] | [address] | | | TESTS | | | | + + + + + CAPILLARY BLOOD GLUCOSE (NO CHG), POC (09/06/2013 7:05 AM PDT) + +---------+ + + + | Component | Value | Ref Range | Performed | Pathologist | | | | | At | Signature | + +---------+ + + + | BLOOD | 112 (H) | 60 - 99 mg/dL | [facility] | [...] + + + + + | [facility] | [address] | [place], [place] | | | [facility] | [address] | [address] | | | TESTS | | | | + + + + + X-RAY CHEST 1 VIEW (09/06/2013 6:01 AM PDT) + + + + + + | Component | Value | Ref Range | Performed | Pathologist | | | | | At | Signature | + + + + + + | CHEST, 1 | EXAM: CHEST 1 VIEW | | | | | VIEW | 09/06/13 06:01:00 | | | | | | HISTORY: Status post | | | | | | open heart surgery. | | | | | | COMPARISON: 09/05/2013 | | | | | | FINDINGS:Single AP | | | | | | portable view in | | | | | | semi-upright position. | | | | | | The lungs are | | | | | | markedlyhypoexpanded. | | | | | | There is vascular | | | | | | indistinctness and | | | | | | groundglass | | | | | | opacitybilaterally. A | | | | | | layering right pleural | | | | | | effusion is noted. The | | | | | | left costophrenicsulci | | | | | | sulcus is sharp. There | | | | | | is no evidence of | | | | | | pneumothorax. | | | | | | Thecardiomediastinal | | | | | | contour is grossly | | | | | | unchanged. Changes of | | | | | | median sternotomyare | | | | | | stable. IMPRESSION: Mild | | | | | | hydrostatic pulmonary | | | | | | edema, new since the | | | | | | 09/05/2013 exam. Small | | | | | | layeringright pleural | | | | | | effusion. Markedly | | | | | | hypoexpanded lungs. | | | | | | Attending Radiologists: | | | | | | YOLANDA PEÑALOZA, | | | | | | MDAuthor: YOLANDA | | | | | | MD JH I have | | | | | | personally viewed this | | | | | | procedure/exam, reviewed | | | | | | this report, and | | | | | | madechanges to it where | | | | | | appropriate. | | | | | | Final/Electronically | | | | | | signed / YOLANDA | | | | | | JH 09/06/2013 | | | | | | 9:44 AM | | | | + + + + + + + + | Specimen | + + | | + + + +---------+ + + | Performing | Address | City/State/Zipcode | Phone Number | | Organization | | | | + +---------+ + + | [facility] | | | | | [facility]IOLOGY | | | | + +---------+ + + CAPILLARY BLOOD GLUCOSE (NO CHG), POC (09/06/2013 6:00 AM PDT) + +---------+ + + + | Component | Value | Ref Range | Performed | Pathologist | | | | | At | Signature | + +---------+ + + + | BLOOD | 100 (H) | 60 - 99 mg/dL | [facility] | [...] + + + + + | [facility] | [address] | [place], [place] | | | [facility] | [address] | [address] | | | TESTS | | | | + + + + + CAPILLARY BLOOD GLUCOSE (NO CHG), POC (09/06/2013 4:42 AM PDT) + +---------+ + + + | Component | Value | Ref Range | Performed | Pathologist | | | | | At | Signature | + +---------+ + + + | BLOOD | 103 (H) | 60 - 99 mg/dL | [facility] | [...] | [facility] | [address] | [place], [place] | | | [facility] | [address] | [address] | | | TESTS | | | | + + + + + CAPILLARY BLOOD GLUCOSE (NO CHG), POC (09/06/2013 3:47 AM PDT) + +---------+ + + + | Component | Value | Ref Range | Performed | Pathologist | | | | | At | Signature | + +---------+ + + + | BLOOD | 108 (H) | 60 - 99 mg/dL | [facility] - | [...] + | [facility] | [address] | [place], [place] | | | [facility] | [address] | [address] | | | TESTS | | | | + + + + + CAPILLARY BLOOD GLUCOSE (NO CHG), POC (09/06/2013 2:30 AM PDT) + +---------+ + + + | Component | Value | Ref Range | Performed | Pathologist | | | | | At | Signature | + +---------+ + + + | BLOOD | 115 (H) | 60 - 99 mg/dL | [facility] - | | | GLUCOSE, | | | [facility] | | | POC | | | [facility] | | | | | | OF CARE | | | | | | TESTS | | + +---------+ + + + + + | Specimen | + + | | + + + + + + + | Performing | Address | City/State/Zipcode | Phone Number | | Organization | | | | + + + + + | [facility] | [address] | [place], [place] | | | [facility] | [address] | [address] | | | TESTS | | | | + + + + + CBC (HEMOGRAM) ONLY (09/06/2013 2:23 AM PDT) + + + + + + | Component | Value | Ref Range | Performed | Pathologist | | | | | At | Signature | + + + + + + | WHITE CELL | 16.35 (H) | 4.40 - 11.00 | [facility] | | | COUNT | | K/cu mm | LABORATORY | | | | | | SERVICES, | | | | | | CORE | | + + + + + + | RED CELL | 3.40 (L) | 4.50 - 6.00 | [facility] | | | COUNT | | M/cu mm | LABORATORY | | | | | | SERVICES, | | | | | | CORE | | + + + + + + | HEMOGLOBIN | 10.4 (L) | 13.5 - 17.5 | [facility] | | | | | g/dL | LABORATORY | | | | | | SERVICES, | | | | | | CORE | | + + + + + + | HEMATOCRIT | 30.3 (L) | 41.0 - 53.0 % | [facility] | | | | | | LABORATORY | | | | | | SERVICES, | | | | | | CORE | | + + + + + + | MCV | 89.1 | 80.0 - 96.0 fL | [facility] | | | | | | LABORATORY | | | | | | SERVICES, | | | | | | CORE | | + + + + + + | MCHC | 34.3 | 33.0 - 35.5 | [facility] | | | | | g/dL | LABORATORY | | | | | | SERVICES, | | | | | | CORE | | + + + + + + | RDW SD | 46.8 (H) | 35.1 - 46.3 fL | [facility] | | | | | | LABORATORY | | | | | | SERVICES, | | | | | | CORE | | + + + + + + | PLATELET | 170 | 150 - 400 K/cu | [facility] | | | COUNT | | mm | LABORATORY | | | | | | SERVICES, | | | | | | CORE | | + + + + + + | MPV | 9.8 | 9.7 - 12.3 fL | [facility] [...] + + | Blood - Blood | + + + + + + + | Performing | Address | City/State/Zipcode | Phone Number | | Organization | | | | + + + + + | [facility] | [address] | [place] [address] | | | SERVICES, RUDY | [address] | | | + + + + + MAGNESIUM, PLASMA (09/06/2013 2:23 AM PDT) + +-------+ + + + | Component | Value | Ref Range | Performed | Pathologist | | | | | At | Signature | + +-------+ + + + | MAGNESIUM,P | 1.9 | 1.8 - 2.5 mg/dL | [facility] | | | LASMA | | | LABORATORY | | | | | | SERVICES, | | | | | | CORE | | + +-------+ + + + + + | Specimen | + + | Blood - Blood | + + + + + + + | Performing | Address | City/State/Zipcode | Phone Number | | Organization | | | | + + + + + | [facility] | [address] | [place] [address] | | | SERVICES, CORE | [address] | | | + + + + + RENAL FUNCTION SET (NA,K,CL,CO2,BUN,CREAT,GLUC,CA,PHOS,ALB ) (09/06/2013 2:23 AM PDT) + + + + + + | Component | Value | Ref Range | Performed | Pathologist | | | | | At | Signature | + + + + + + | GLUCOSE, | 102 (H) | 60 - 99 mg/dL | [facility] | | | PLASMA | | | LABORATORY | | | (LAB) | | | SERVICES, | | | | | | CORE | | + + + + + + | BUN, PLASMA | 9 | 6 - 20 mg/dL | [facility] | | | (LAB) | | | LABORATORY | | | | | | SERVICES, | | | | | | CORE | | + + + + + + | CREATININE | 0.67 (L) | 0.70 - 1.30 | [facility] | | | PLASMA | | mg/dL | LABORATORY | | | (LAB) | | | SERVICES, | | | | | | CORE | | + + + + + + | EGFR | >60 | >60 mL/min | [facility] | | | - | | | LABORATORY | | | [facility] | | | SERVICES, | | | | | | CORE | | + + + + + + | EGFR NON | >60 | >60 mL/min | [facility] | | | -[facility] | | | LABORATORY | | | RICAN | | | SERVICES, | | | | | | CORE | | + + + + + + | SODIUM, | 135 (L) | 136 - 145 | [facility] | | | PLASMA | | mmol/L | LABORATORY | | | (LAB) | | | SERVICES, | | | | | | CORE | | + + + + + + | POTASSIUM, | 3.2 (L) | 3.4 - 5.0 | [facility] | [...] + + + | TOTAL CO2, | 25 | 21 - 32 mmol/L | [facility] [...] + + + + + + | ALBUMIN, | 3.2 (L) | 3.5 - 4.7 g/dL | [facility] | | | PLASMA | | | LABORATORY | | | (LAB) | | | SERVICES, | | | | | | CORE | | + + + + + + | PHOSPHORUS, | 3.5 | 2.4 - 4.7 mg/dL | [facility] [...] + + + | ANION GAP | 9 | mmol/L | [facility] | | | | | | LABORATORY | | | | | | SERVICES, | | | | | | CORE | | + + + + + + | ANION | 11 | 4 - 11 mmol/L | [facility] | | | GAP(ALB | | | LABORATORY | | | CORRECTED) | | | SERVICES, | | | | | | CORE | | + + + + + + + + | Specimen | + + | Blood - Blood | + + + + + | Narrative | Performed At | + + + | GFR is estimated using the MDRD equation recommended by the | [facility] | | National Kidney Disease Education Program. Estimated GFR | LABORATORY | | Interpretive Information: <60 mL/min/1.73 sq m | SERVICES, CORE | | Chronic Kidney Disease <15 mL/min/1.73 sq m | | | Kidney Failure Estimated GFR greater that 60 mL/min/1.73 sq m is of | | | limited clinical value. The MDRD equation is not valid in the | | | following situations: - Patients under 18 years of age - Severe | | | malnutrition or obesity - Vegetarian diet - Rapidly changing kidney | | | function | | + + + + + + + + | Performing | Address | City/State/Zipcode | Phone Number | | Organization | | | | + + + + + | [facility] | [address] | [place] [address] | | | SERVICES, CORE | [address] | | | + + + + + CAPILLARY BLOOD GLUCOSE (NO CHG), POC (09/06/2013 1:46 AM PDT) + +-------+ + + + | Component | Value | Ref Range | Performed | Pathologist | | | | | At | Signature | + +-------+ + + + | BLOOD | 98 | 60 - 99 mg/dL | [facility] - | | | GLUCOSE, | | | [facility] | | | POC | | | [facility] | | | | | | OF CARE | | | | | | TESTS | | + +-------+ + + + + + | Specimen | + + | | + + + + + + + | Performing | Address | City/State/Zipcode | Phone Number | | Organization | | | | + + + + + | [facility] | [address] | [place], [place] | | | [facility] | [address] | [address] | | | TESTS | | | | + + + + + CAPILLARY BLOOD GLUCOSE (NO CHG), POC (09/06/2013 12:36 AM PDT) + +-------+ + + + | Component | Value | Ref Range | Performed | Pathologist | | | | | At | Signature | + +-------+ + + + | BLOOD | 96 | 60 - 99 mg/dL | [facility] - | | | GLUCOSE, | | | [facility] | | | POC | | | [facility] | | | | | | OF CARE | | | | | | TESTS | | + +-------+ + + + + + | Specimen | + + | | + + + + + + + | Performing | Address | City/State/Zipcode | Phone Number | | Organization | | | | + + + + + | [facility] | [address] | [place], [place] | | | [facility] | [address] | [address] | | | TESTS | | | | + + + + + CAPILLARY BLOOD GLUCOSE (NO CHG), POC (09/05/2013 11:28 PM PDT) + +---------+ + + + | Component | Value | Ref Range | Performed | Pathologist | | | | | At | Signature | + +---------+ + + + | BLOOD | 112 (H) | 60 - 99 mg/dL | [facility] - | [...] + + + + | [facility] | [address] | [place], [place] | | | [facility] | [facility] | [address] | | | TESTS | | | | + + + + + CAPILLARY BLOOD GLUCOSE (NO CHG), POC (09/05/2013 10:07 PM PDT) + +---------+ + + + | Component | Value | Ref Range | Performed | Pathologist | | | | | At | Signature | + +---------+ + + + | BLOOD | 146 (H) | 60 - 99 mg/dL | [facility] - | | | GLUCOSE, | | [...] + + + + + | [facility] | [address] | [place], [place] | | | [facility] | [facility] | [address] | | | TESTS | | | | + + + + + CAPILLARY BLOOD GLUCOSE (NO CHG), POC (09/05/2013 9:10 PM PDT) + +---------+ + + + | Component | Value | Ref Range | Performed | Pathologist | | | | | At | Signature | + +---------+ + + + | BLOOD | 154 (H) | 60 - 99 mg/dL | [facility] - | [...] | [facility] | [address] | [place], [place] | | | [facility] | [address] | [address] | | | TESTS | | | | + + + + + CAPILLARY BLOOD GLUCOSE (NO CHG), POC (09/05/2013 8:08 PM PDT) + +---------+ + + + | Component | Value | Ref Range | Performed | Pathologist | | | | | At | Signature | + +---------+ + + + | BLOOD | 182 (H) | 60 - 99 mg/dL | [facility] - | [...] + + + + | [facility] | [address] | [place], [place] | | | [facility] | [facility] | [address] | | | TESTS | | | | + + + + + CAPILLARY BLOOD GLUCOSE (NO CHG), POC (09/05/2013 6:52 PM PDT) + +---------+ + + + | Component | Value | Ref Range | Performed | Pathologist | | | | | At | Signature | + +---------+ + + + | BLOOD | 119 (H) | 60 - 99 mg/dL | [facility] - | | | GLUCOSE, | | [...] + + + + + | [facility] | [address] | [place], [place] | | | [facility] | [facility] | [address] | | | TESTS | | | | + + + + + CAPILLARY BLOOD GLUCOSE (NO CHG), POC (09/05/2013 6:10 PM PDT) + +-------+ + + + | Component | Value | Ref Range | Performed | Pathologist | | | | | At | Signature | + +-------+ + + + | BLOOD | 89 | 60 - 99 mg/dL | [facility] - | | | GLUCOSE, | | | [facility] | | | POC | | | [facility] | | | | | | OF CARE | | | | | | TESTS | | + +-------+ + + + + + | Specimen | + + | | + + + + + + + | Performing | Address | City/State/Zipcode | Phone Number | | Organization | | | | + + + + + | [facility] | [address] | [place], [place] | | | [facility] | [address] | [address] | | | TESTS | | | | + + + + + CAPILLARY BLOOD GLUCOSE (NO CHG), POC (09/05/2013 4:56 PM PDT) + +---------+ + + + | Component | Value | Ref Range | Performed | Pathologist | | | | | At | Signature | + +---------+ + + + | BLOOD | 119 (H) | 60 - 99 mg/dL | [facility] - | [...] + + + + | [facility] | [address] | [place], [place] | | | [facility] | [facility] | [address] | | | TESTS | | | | + + + + + CAPILLARY BLOOD GLUCOSE (NO CHG), POC (09/05/2013 4:06 PM PDT) + +---------+ + + + | Component | Value | Ref Range | Performed | Pathologist | | | | | At | Signature | + +---------+ + + + | BLOOD | 155 (H) | 60 - 99 mg/dL | [facility] - | | | GLUCOSE, | | [...] + + + + + | [facility] | [address] | [place], [place] | | | [facility] | [facility] | [address] | | | TESTS | | | | + + + + + CAPILLARY BLOOD GLUCOSE (NO CHG), POC (09/05/2013 2:01 PM PDT) + +---------+ + + + | Component | Value | Ref Range | Performed | Pathologist | | | | | At | Signature | + +---------+ + + + | BLOOD | 129 (H) | 60 - 99 mg/dL | [facility] - | [...] + + + + | [facility] | [address] | [place], [place] | | | [facility] | [address] | [address] | | | TESTS | | | | + + + + + CAPILLARY BLOOD GLUCOSE (NO CHG), POC (09/05/2013 12:53 PM PDT) + +---------+ + + + | Component | Value | Ref Range | Performed | Pathologist | | | | | At | Signature | + +---------+ + + + | BLOOD | 134 (H) | 60 - 99 mg/dL | [facility] - | [...] + + + + | [facility] | [address] | [place], [place] | | | [facility] | [facility] | [address] | | | TESTS | | | | + + + + + CAPILLARY BLOOD GLUCOSE (NO CHG), POC (09/05/2013 11:45 AM PDT) + +---------+ + + + | Component | Value | Ref Range | Performed | Pathologist | | | | | At | Signature | + +---------+ + + + | BLOOD | 129 (H) | 60 - 99 mg/dL | [facility] - | | | GLUCOSE, | | [...] + + + + + | [facility] | [address] | [place], [place] | | | [facility] | [address] | [address] | | | TESTS | | | | + + + + + CAPILLARY BLOOD GLUCOSE (NO CHG), POC (09/05/2013 10:10 AM PDT) + +---------+ + + + | Component | Value | Ref Range | Performed | Pathologist | | | | | At | Signature | + +---------+ + + + | BLOOD | 165 (H) | 60 - 99 mg/dL | [facility] - | [...] + + + + | [facility] | [address] | [place], [place] | | | [facility] | [address] | [address] | | | TESTS | | | | + + + + + CAPILLARY BLOOD GLUCOSE (NO CHG), POC (09/05/2013 9:00 AM PDT) + +---------+ + + + | Component | Value | Ref Range | Performed | Pathologist | | | | | At | Signature | + +---------+ + + + | BLOOD | 140 (H) | 60 - 99 mg/dL | [facility] - | [...] + + + + + | [facility] | [address] | [place], [place] | | | [facility] | [address] | [address] | | | TESTS | | | | + + + + + X-RAY CHEST 1 VIEW (09/05/2013 5:51 AM PDT) + + + + + + | Component | Value | Ref Range | Performed | Pathologist | | | | | At | Signature | + + + + + + | CHEST, 1 | EXAM: CHEST 1 VIEW | | | | | VIEW | 09/05/13 05:51:00 | | | | | | HISTORY: Status post | | | | | | ascending aortic | | | | | | aneurysm repair | | | | | | COMPARISON: Yesterday | | | | | | FINDINGS: The patient | | | | | | has been extubated and | | | | | | the enteric tube as well | | | | | | as right I[place]-Asher | | | | | | catheter have been | | | | | | removed. 7 sternotomy | | | | | | wires are intact and | | | | | | wellaligned. Mediastinal | | | | | | drain remains in place. | | | | | | There is minimal | | | | | | bibasilaratelectasis. | | | | | | There is trace right | | | | | | pleural fluid. There is | | | | | | no pneumothorax | | | | | | orpulmonary edema. The | | | | | | cardiomediastinal | | | | | | silhouette is stable, | | | | | | however decreasedwhen | | | | | | compared to the | | | | | | pre-surgery radiograph, | | | | | | in keeping with aneurysm | | | | | | repair. IMPRESSION: | | | | | | Extubation and removal | | | | | | of enteric tube and | | | | | | [place]-Asher catheter. | | | | | | Scattered bibasilar | | | | | | atelectasis with trace | | | | | | right pleural fluid. | | | | | | Attending Radiologists: | | | | | | GORAN ROSS MDAuthor: | | | | | | GORAN ROSS MD I | | | | | | have personally viewed | | | | | | this procedure/exam, | | | | | | reviewed this report, | | | | | | and madechanges to it | | | | | | where appropriate. | | | | | | Final/Electronically | | | | | | signed / GORAN | | | | | | CODY 09/05/2013 11:28 AM | | | | | | | | | | + + + + + + + + | Specimen | + + | | + + + +---------+ + + | Performing | Address | City/State/Zipcode | Phone Number | | Organization | | | | + +---------+ + + | [facility] | | | | | RADIOLOGY | | | | + +---------+ + + CALCIUM, IONIZED, WHOLE BLOOD (09/05/2013 2:31 AM PDT) + + + + + + | Component | Value | Ref Range | Performed | Pathologist | | | | | At | Signature | + + + + + + | ALEXANDRA ICA, | 1.12 (L) | 1.14 - 1.32 | [facility] | | | WHOLE BLD | | mmol/L | LABORATORY | | | | | | SERVICES, | | | | | | CORE | | + + + + + + | PH, WHOLE | 7.34 | | [facility] | | | BLOOD | | | LABORATORY | | | | | | SERVICES, | | | | | | CORE | | + + + + + + | ICA, | 1.09 (L) | 1.14 - 1.28 | [facility] | | | CORRECTED | | mmol/L | LABORATORY | | | TO PH 7.4 | | | SERVICES, | | | | | | CORE | | + + + + + + + + | Specimen | + + | Blood - Blood | + + + + + + + | Performing | Address | City/State/Zipcode | Phone Number | | Organization | | | | + + + + + | [facility] | [address] | [place] [address] | | | SERVICES, CORE | [address] | | | + + + + + CBC (HEMOGRAM) ONLY (09/05/2013 1:21 AM PDT) + + + + + + | Component | Value | Ref Range | Performed | Pathologist | | | | | At | Signature | + + + + + + | WHITE CELL | 12.81 (H) | 4.40 - 11.00 | [facility] | | | COUNT | | K/cu mm | LABORATORY | | | | | | SERVICES, | | | | | | CORE | | + + + + + + | RED CELL | 3.44 (L) | 4.50 - 6.00 | [facility] | | | COUNT | | M/cu mm | LABORATORY | | | | | | SERVICES, | | | | | | CORE | | + + + + + + | HEMOGLOBIN | 10.6 (L) | 13.5 - 17.5 | [facility] | | | | | g/dL | LABORATORY | | | | | | SERVICES, | | | | | | CORE | | + + + + + + | HEMATOCRIT | 31.8 (L) | 41.0 - 53.0 % | [facility] | | | | | | LABORATORY | | | | | | SERVICES, | | | | | | CORE | | + + + + + + | MCV | 92.4 | 80.0 - 96.0 fL | [facility] | | | | | | LABORATORY | | | | | | SERVICES, | | | | | | CORE | | + + + + + + | MCHC | 33.3 | 33.0 - 35.5 | [facility] | | | | | g/dL | LABORATORY | | | | | | SERVICES, | | | | | | CORE | | + + + + + + | RDW SD | 47.5 (H) | 35.1 - 46.3 fL | [facility] | | | | | | LABORATORY | | | | | | SERVICES, | | | | | | CORE | | + + + + + + | PLATELET | 162 | 150 - 400 K/cu | [facility] | | | COUNT | | mm | LABORATORY | | | | | | SERVICES, | | | | | | CORE | | + + + + + + | MPV | 9.5 (L) | 9.7 - 12.3 fL | [facility] [...] + + | Blood - Blood | + + + + + + + | Performing | Address | City/State/Zipcode | Phone Number | | Organization | | | | + + + + + | [facility] | [address] | [place] [address] | | | SERVICES, CORE | [address] | | | + + + + + MAGNESIUM, PLASMA (09/05/2013 1:21 AM PDT) + +-------+ + + + | Component | Value | Ref Range | Performed | Pathologist | | | | | At | Signature | + +-------+ + + + | MAGNESIUM,P | 2.0 | 1.8 - 2.5 mg/dL | [facility] | | | LASMA | | | LABORATORY | | | | | | SERVICES, | | | | | | CORE | | + +-------+ + + + + + | Specimen | + + | Blood - Blood | + + + + + + + | Performing | Address | City/State/Zipcode | Phone Number | | Organization | | | | + + + + + | [facility] | [address] | [place] [address] | | | SERVICES, CORE | [address] | | | + + + + + RENAL FUNCTION SET (NA,K,CL,CO2,BUN,CREAT,GLUC,CA,PHOS,ALB ) (09/05/2013 1:21 AM PDT) + + + + + + | Component | Value | Ref Range | Performed | Pathologist | | | | | At | Signature | + + + + + + | GLUCOSE, | 99 | 60 - 99 mg/dL | [facility] | | [...] + + + + | CREATININE | 0.67 (L) | 0.70 - 1.30 | [facility] | | | PLASMA | | mg/dL | LABORATORY | | | (LAB) | | | SERVICES, | | | | | | CORE | | + + + + + + | EGFR | >60 | >60 mL/min | [facility] | | | - | | | LABORATORY | | | [facility] | | | SERVICES, | | | | | | CORE | | + + + + + + | EGFR NON | >60 | >60 mL/min | [facility] | | | -[facility] | | | LABORATORY | | | RICAN | | | SERVICES, | | | | | | CORE | | + + + + + + | SODIUM, | 142 | 136 - 145 | [facility] | | | PLASMA | | mmol/L | LABORATORY | | | (LAB) | | | SERVICES, | | | | | | CORE | | + + + + + + | POTASSIUM, | 3.6 | 3.4 - 5.0 | [facility] | | | PLASMA | | mmol/L | LABORATORY | | | (LAB) | | | SERVICES, | | | | | | CORE | | + + + + + + | CHLORIDE, | 111 (H) | 97 - 108 mmol/L | [facility] | | | PLASMA | | | LABORATORY | | | (LAB) | | | SERVICES, | | | | | | CORE | | + + + + + + | TOTAL CO2, | 18 (L) | 21 - 32 mmol/L | [facility] | | | PLASMA | | | LABORATORY | | | (LAB) | | | SERVICES, | | | | | | CORE | | + + + + + + | CALCIUM, | 7.7 (L) | 8.6 - 10.2 | [facility] | | | PLASMA | | mg/dL | LABORATORY | | | (LAB) | | | SERVICES, | | | | | | CORE | | + + + + + + | ALBUMIN, | 3.4 (L) | 3.5 - 4.7 g/dL | [facility] | | | PLASMA | | | LABORATORY | | | (LAB) | | | SERVICES, | | | | | | CORE | | + + + + + + | PHOSPHORUS, | 3.8 | 2.4 - 4.7 mg/dL | [facility] [...] + + + | ANION GAP | 13 | mmol/L | [facility] | | | | | | LABORATORY | | | | | | SERVICES, | | | | | | CORE | | + + + + + + | ANION | 14 (H) | 4 - 11 mmol/L | [facility] | | | GAP(ALB | | | LABORATORY | | | CORRECTED) | | | SERVICES, | | | | | | CORE | | + + + + + + + + | Specimen | + + | Blood - Blood | + + + + + | Narrative | Performed At | + + + | GFR is estimated using the MDRD equation recommended by the | [facility] | | National Kidney Disease Education Program. Estimated GFR | LABORATORY | | Interpretive Information: <60 mL/min/1.73 sq m | SERVICES, CORE | | Chronic Kidney Disease <15 mL/min/1.73 sq m | | | Kidney Failure Estimated GFR greater that 60 mL/min/1.73 sq m is of | | | limited clinical value. The MDRD equation is not valid in the | | | following situations: - Patients under 18 years of age - Severe | | | malnutrition or obesity - Vegetarian diet - Rapidly changing kidney | | | function | | + + + + + + + + | Performing | Address | City/State/Zipcode | Phone Number | | Organization | | | | + + + + + | [facility] | [address] | [place] [address] | | | SERVICES, CORE | [address] | | | + + + + + 12 LEAD ECG (09/04/2013 7:06 PM PDT) + + + + + + | Component | Value | Ref Range | Performed | Pathologist | | | | | At | Signature | + + + + + + | VENTRICULAR | 66 | BPM | [facility] | | | RATE | | | OF | | | | | | CARDIOLOGY | | + + + + + + | ATRIAL RATE | 66 | BPM | [facility] | | | | | | OF | | | | | | CARDIOLOGY | | + + + + + + | P-R | 404 | ms | [facility] | | | INTERVAL | | | OF | | | | | | CARDIOLOGY | | + + + + + + | QRS | 102 | ms | [facility] | | | DURATION | | | OF | | | | | | CARDIOLOGY | | + + + + + + | QT | 400 | ms | [facility] | | | | | | OF | | | | | | CARDIOLOGY | | + + + + + + | QTC | 419 | ms | [facility] | | | | | | OF | | | | | | CARDIOLOGY | | + + + + + + | R AXIS | -28 | degrees | [facility] | | | | | | OF | | | | | | CARDIOLOGY | | + + + + + + | T AXIS | -32 | degrees | [facility] | | | | | | OF | | | | | | CARDIOLOGY | | + + + + + + | EKG | Sinus rhythm with 1st | | [facility] | | | DIAGNOSIS | degree A-V | | OF | | | | blockOtherwise normal | | CARDIOLOGY | | | | ECG"I have personally | | | | | | interpreted this report, | | | | | | either alone or with a | | | | | | trainee."Confirmed by | | | | | | MICKEY WISE ([id number]) on | | | | | | 09/06/2013 3:26:49 PM | | | | + + + + + + + + | Specimen | + + | | + + + + + | Narrative | Performed At | + + + | Please click | [facility] | | on view image for the detailed interpretation from [facility] results. | CARDIOLOGY | + + + + + | Procedure Note | + + | Interface, Cardiology Results - 09/06/2013 3:26 PM PDT Please click on view image | | for the detailed interpretation from [facility] results. | + + + + + + + | Performing | Address | City/State/Zipcode | Phone Number | | Organization | | | | + + + + + | [facility] | [address] | [place], [place] | | | CARDIOLOGY | [facility] | [id number] | | + + + + + X-RAY CHEST 1 VIEW (09/04/2013 6:22 PM PDT) + + + + + + | Component | Value | Ref Range | Performed | Pathologist | | | | | At | Signature | + + + + + + | CHEST, 1 | EXAM: CHEST 1 VIEW | | | | | VIEW | 09/04/13 18:22:00 | | | | | | HISTORY: Status post | | | | | | cardiac surgery | | | | | | COMPARISON: None. | | | | | | FINDINGS:There is a new | | | | | | right Jay-Asher | | | | | | catheter with tip | | | | | | terminating in the | | | | | | centralpulmonary outflow | | | | | | tract. The ET tube tip | | | | | | terminates 3 cm above | | | | | | the tray.Endogastric | | | | | | tube tip traverses below | | | | | | the diaphragm. Median | | | | | | sternotomy wires | | | | | | areintact. There are low | | | | | | lung volumes with | | | | | | diffuse groundglass | | | | | | opacity and | | | | | | vascularindistinctness, | | | | | | consistent with | | | | | | cardiogenic pulmonary | | | | | | edema. | | | | | | Thecardiomediastinal | | | | | | silhouette is mildly | | | | | | enlarged. No right | | | | | | pleural effusion. | | | | | | Theleft costophrenic | | | | | | angle was not included | | | | | | in this study. No acute | | | | | | osseousabnormality. | | | | | | IMPRESSION: 1. Right IJ | | | | | | [place]-Asher catheter, ET | | | | | | tube tip, and | | | | | | endotracheal tube tip as | | | | | | above. 2. Mildly | | | | | | enlarged mediastinal | | | | | | silhouette with low lung | | | | | | volumes and | | | | | | mildcardiogenic | | | | | | pulmonary edema. | | | | | | Attending Radiologists: | | | | | | YOLANDA PEÑALOZA, | | | | | | MDAuthor: JEAN PIERRE PA, | | | | | | I have personally | | | | | | viewed this | | | | | | procedure/exam, reviewed | | | | | | this report, and | | | | | | madechanges to it where | | | | | | appropriate. | | | | | | Final/Electronically | | | | | | charu / YOLANDA | | | | | | JH 09/14/2013 | | | | | | 16:35 PM | | | | + + + + + + + + | Specimen | + + | | + + + +---------+ + + | Performing | Address | City/State/Zipcode | Phone Number | | Organization | | | | + +---------+ + + | [facility] | | | | | RADIOLOGY | | | | + +---------+ + + BLOOD GASES, ARTERIAL - LAB (09/04/2013 6:09 PM PDT) + + + + + + | Component | Value | Ref Range | Performed | Pathologist | | | | | At | Signature | + + + + + + | PAT TEMP | | Degree C | [facility] | | | ARTERIAL | | | LABORATORY | | | | | | SERVICES, | | | | | | CORE | | + + + + + + | FIO2 | | | [facility] | | | ARTERIAL | | | LABORATORY | | | | | | SERVICES, | | | | | | CORE | | + + + + + + | PH ARTERIAL | 7.32 (L) | 7.37 - 7.44 | [facility] | | | | | | LABORATORY | | | | | | SERVICES, | | | | | | CORE | | + + + + + + | PCO2 | 42 | 32 - 43 mmHg | [facility] | | | ARTERIAL | | | LABORATORY | | | | | | SERVICES, | | | | | | CORE | | + + + + + + | PO2 | 115 (H) | 72 - 104 mmHg | [facility] | | | ARTERIAL | | | LABORATORY | | | | | | SERVICES, | | | | | | CORE | | + + + + + + | HCO3 | 21 | 21 - 28 mmol/L | [facility] | | | ARTERIAL | | | LABORATORY | | | | | | SERVICES, | | | | | | CORE | | + + + + + + | TOTAL CO2 | 22 | 22 - 28 mmol/L | [facility] | | | ARTERIAL | | | LABORATORY | | | | | | SERVICES, | | | | | | CORE | | + + + + + + | BASE EXCESS | -4.3 | | [facility] | | | ARTERIAL | | | LABORATORY | | | | | | SERVICES, | | | | | | CORE | | + + + + + + | O2 SAT, | 98.1 (H) | 92.0 - 98.0 | [facility] | | | ARTERIAL | | | LABORATORY | | | | | | SERVICES, | | | | | | CORE | | + + + + + + + + | Specimen | + + | Blood - Blood | + + + + + + + | Performing | Address | City/State/Zipcode | Phone Number | | Organization | | | | + + + + + | [facility] | [address] | [place] [address] | | | SERVICES, CORE | [address] | | | + + + + + CBC (HEMOGRAM) ONLY (09/04/2013 6:08 PM PDT) + + + + + + | Component | Value | Ref Range | Performed | Pathologist | | | | | At | Signature | + + + + + + | WHITE CELL | 12.99 (H) | 4.40 - 11.00 | [facility] | | | COUNT | | K/cu mm | LABORATORY | | | | | | SERVICES, | | | | | | CORE | | + + + + + + | RED CELL | 3.39 (L) | 4.50 - 6.00 | [facility] | | | COUNT | | M/cu mm | LABORATORY | | | | | | SERVICES, | | | | | | CORE | | + + + + + + | HEMOGLOBIN | 10.4 (L) | 13.5 - 17.5 | [facility] | | | | | g/dL | LABORATORY | | | | | | SERVICES, | | | | | | CORE | | + + + + + + | HEMATOCRIT | 30.5 (L) | 41.0 - 53.0 % | [facility] | | | | | | LABORATORY | | | | | | SERVICES, | | | | | | CORE | | + + + + + + | MCV | 90.0 | 80.0 - 96.0 fL | [facility] | | | | | | LABORATORY | | | | | | SERVICES, | | | | | | CORE | | + + + + + + | MCHC | 34.1 | 33.0 - 35.5 | [facility] | | | | | g/dL | LABORATORY | | | | | | SERVICES, | | | | | | CORE | | + + + + + + | RDW SD | 44.5 | 35.1 - 46.3 fL | [facility] | | | | | | LABORATORY | | | | | | SERVICES, | | | | | | CORE | | + + + + + + | PLATELET | 145 (L) | 150 - 400 K/cu | [facility] [...] + + | Blood - Blood | + + + + + + + | Performing | Address | City/State/Zipcode | Phone Number | | Organization | | | | + + + + + | [facility] | [address] | [place] [address] | | | SERVICES, CORE | [address] | | | + + + + + MAGNESIUM, PLASMA (09/04/2013 6:08 PM PDT) + +-------+ + + + | Component | Value | Ref Range | Performed | Pathologist | | | | | At | Signature | + +-------+ + + + | MAGNESIUM,P | 2.3 | 1.8 - 2.5 mg/dL | [facility] | | | LASMA | | | LABORATORY | | | | | | [place], | | | | | | CORE | | + +-------+ + + + + + | Specimen | + + | Blood - Blood | + + + + + + + | Performing | Address | City/State/Zipcode | Phone Number | | Organization | | | | + + + + + | [facility] | [address] | [place] [address] | | | SERVICES, CORE | [address] | | | + + + + + APTT (ACT. PART. THROMBO TIME) (09/04/2013 6:08 PM PDT) + + + + + + | Component | Value | Ref Range | Performed | Pathologist | | | | | At | Signature | + + + + + + | APTT | 62.1 (H) | 26.0 - 36.0 | [facility] | | | | | seconds | LABORATORY | | | | | | SERVICES, | | | | | | CORE | | + + + + + + + + | Specimen | + + | Blood - Blood | + + + + + | Narrative | Performed At | + + + | APTT Therapeutic Range: (75 - | [facility] | | 120) sec Heparin levels of 0.35 - 0.7 U/mL | LABORATORY | | | SERVICES, CORE | + + + + + + + + | Performing | Address | City/State/Zipcode | Phone Number | | Organization | | | | + + + + + | [facility] | [address] | [place] [address] | | | SERVICES, CORE | [address] | | | + + + + + INR (09/04/2013 6:08 PM PDT) + + + + + + | Component | Value | Ref Range | Performed | Pathologist | | | | | At | Signature | + + + + + + | INR | 1.35 (H) | 0.90 - 1.20 INR | [facility] | | | | | | LABORATORY | | | | | | SERVICES, | | | | | | CORE | | + + + + + + + + | Specimen | + + | Blood - Blood | + + + + + | Narrative | Performed At | + + + | INR Therapeutic ranges for full anticoagulation: INR for | [facility] | | Venous Thromboembolism (2.0 - 3.0) INR INR for | LABORATORY | | most patients with mech. valves (2.5 - 3.5) INR | SERVICES, CORE | + + + + + + + + | Performing | Address | City/State/Zipcode | Phone Number | | Organization | | | | + + + + + | [facility] | [address] | [place] [address] | | | SERVICES, CORE | [address] | | | + + + + + CALCIUM, IONIZED, WHOLE BLOOD (09/04/2013 6:08 PM PDT) + + + + + + | Component | Value | Ref Range | Performed | Pathologist | | | | | At | Signature | + + + + + + | ALEXANDRA ICA, | 1.14 | 1.14 - 1.32 | [facility] | | | WHOLE BLD | | mmol/L | LABORATORY | | | | | | SERVICES, | | | | | | CORE | | + + + + + + | PH, WHOLE | 7.32 | | [facility] | | | BLOOD | | | LABORATORY | | | | | | SERVICES, | | | | | | CORE | | + + + + + + | ICA, | 1.09 (L) | 1.14 - 1.28 | [facility] | | | CORRECTED | | mmol/L | LABORATORY | | | TO PH 7.4 | | | SERVICES, | | | | | | CORE | | + + + + + + + + | Specimen | + + | Blood - Blood | + + + + + + + | Performing | Address | City/State/Zipcode | Phone Number | | Organization | | | | + + + + + | [facility] | [address] | [place] [address] | | | SERVICES, CORE | [address] | | | + + + + + RENAL FUNCTION SET (NA,K,CL,CO2,BUN,CREAT,GLUC,CA,PHOS,ALB ) (09/04/2013 6:08 PM PDT) + +---------+ + + + | Component | Value | Ref Range | Performed | Pathologist | | | | | At | Signature | + +---------+ + + + | GLUCOSE, | 102 (H) | 60 - 99 mg/dL | [facility] | | | PLASMA | | | LABORATORY | | | (LAB) | | | SERVICES, | | | | | | CORE | | + +---------+ + + + | BUN, PLASMA | 13 | 6 - 20 mg/dL | [facility] [...] | | | LABORATORY | | | NAURUAN | | | SERVICES, | | | | | | CORE | | + +---------+ + + + | EGFR NON | >60 | >60 mL/min | [facility] | | | -DEIDRE | | | LABORATORY | | | RICAN | | | SERVICES, | | | | | | CORE | | + +---------+ + + + | SODIUM, | 144 | 136 - 145 | [facility] | | | PLASMA | | mmol/L | LABORATORY | | | (LAB) | | | SERVICES, | | | | | | CORE | | + +---------+ + + + | POTASSIUM, | 4.0 | 3.4 - 5.0 | [facility] | | | PLASMA | | mmol/L | LABORATORY | | | (LAB) | | | SERVICES, | | | | | | CORE | | + +---------+ + + + | CHLORIDE, | 114 (H) | 97 - 108 mmol/L | [facility] | | | PLASMA | | | LABORATORY | | | (LAB) | | | SERVICES, | | | | | | CORE | | + +---------+ + + + | TOTAL CO2, | 22 | 21 - 32 mmol/L | [facility] | | | PLASMA | | | LABORATORY | | | (LAB) | | | SERVICES, | | | | | | CORE | | + +---------+ + + + | CALCIUM, | 7.5 (L) | 8.6 - 10.2 | [facility] | | | PLASMA | | mg/dL | LABORATORY | | | (LAB) | | | SERVICES, | | | | | | CORE | | + +---------+ + + + | ALBUMIN, | 2.7 (L) | 3.5 - 4.7 g/dL | [facility] | | | PLASMA | | | LABORATORY | | | (LAB) | | | SERVICES, | | | | | | CORE | | + +---------+ + + + | PHOSPHORUS, | 3.3 | 2.4 - 4.7 mg/dL | [facility] [...] + + + | ANION GAP | 8 | mmol/L | [facility] | | | | | | LABORATORY | | | | | | SERVICES, | | | | | | CORE | | + +---------+ + + + | ANION | 11 | 4 - 11 mmol/L | [facility] | | | GAP(ALB | | | LABORATORY | | | CORRECTED) | | | SERVICES, | | | | | | CORE | | + +---------+ + + + + + | Specimen | + + | Blood - Blood | + + + + + | Narrative | Performed At | + + + | GFR is estimated using the MDRD equation recommended by the | [facility] | | National Kidney Disease Education Program. Estimated GFR | LABORATORY | | Interpretive Information: <60 mL/min/1.73 sq m | SERVICES, CORE | | Chronic Kidney Disease <15 mL/min/1.73 sq m | | | Kidney Failure Estimated GFR greater that 60 mL/min/1.73 sq m is of | | | limited clinical value. The MDRD equation is not valid in the | | | following situations: - Patients under 18 years of age - Severe | | | malnutrition or obesity - Vegetarian diet - Rapidly changing kidney | | | function | | + + + + + + + + | Performing | Address | City/State/Zipcode | Phone Number | | Organization | | | | + + + + + | [facility] | [address] | [place] [address] | | | SERVICES, RUDY | [address] | | | + + + + + CAPILLARY BLOOD GLUCOSE (NO CHG), POC (09/04/2013 6:02 PM PDT) + +---------+ + + + | Component | Value | Ref Range | Performed | Pathologist | | | | | At | Signature | + +---------+ + + + | BLOOD | 111 (H) | 60 - 99 mg/dL | [facility] | | | GLUCOSE, | | | [facility] | | | POC | | | [place], [place]INT | | | | | | OF [...] | [facility] | [address] | [place], [place] | | | DOM POINT OF CARE | [facility] | [address] | | | TESTS | | | | + + + + + CBC (HEMOGRAM) ONLY (09/04/2013 5:15 PM PDT) + + + + + + | Component | Value | Ref Range | Performed | Pathologist | | | | | At | Signature | + + + + + + | WHITE CELL | 15.23 (H) | 4.40 - 11.00 | [facility] | | | COUNT | | K/cu mm | LABORATORY | | | | | | SERVICES, | | | | | | CORE | | + + + + + + | RED CELL | 2.90 (L) | 4.50 - 6.00 | [facility] | | | COUNT | | M/cu mm | LABORATORY | | | | | | SERVICES, | | | | | | CORE | | + + + + + + | HEMOGLOBIN | 8.8 (L) | 13.5 - 17.5 | [facility] | | | | | g/dL | LABORATORY | | | | | | SERVICES, | | | | | | CORE | | + + + + + + | HEMATOCRIT | 26.7 (L) | 41.0 - 53.0 % | [facility] | | | | | | LABORATORY | | | | | | SERVICES, | | | | | | CORE | | + + + + + + | MCV | 92.1 | 80.0 - 96.0 fL | [facility] | | | | | | LABORATORY | | | | | | SERVICES, | | | | | | CORE | | + + + + + + | MCHC | 33.0 | 33.0 - 35.5 | [facility] | | | | | g/dL | LABORATORY | | | | | | SERVICES, | | | | | | CORE | | + + + + + + | RDW SD | 46.5 (H) | 35.1 - 46.3 fL | [facility] | | | | | | LABORATORY | | | | | | SERVICES, | | | | | | CORE | | + + + + + + | PLATELET | 144 (L) | 150 - 400 K/cu | [facility] | | | COUNT | | mm | LABORATORY | | | | | | SERVICES, | | | | | | CORE | | + + + + + + | MPV | 10.1 | 9.7 - 12.3 fL | [facility] [...] + + | Blood - Blood | + + + + + + + | Performing | Address | City/State/Zipcode | Phone Number | | Organization | | | | + + + + + | [facility] | [address] | [place] [address] | | | SERVICES, CORE | [address] | | | + + + + + COAGULOPATHY PANEL (INR,APTT,FIBRINOGEN) (09/04/2013 5:15 PM PDT) + + + + + + | Component | Value | Ref Range | Performed | Pathologist | | | | | At | Signature | + + + + + + | INR | 1.43 (H) | 0.90 - 1.20 INR | [facility] | | | | | | LABORATORY | | | | | | SERVICES, | | | | | | CORE | | + + + + + + | APTT | 43.7 (H) | 26.0 - 36.0 | [facility] | | | | | seconds | LABORATORY | | | | | | SERVICES, | | | | | | CORE | | + + + + + + | FIBRINOGEN | 308 | 200 - 450 mg/dL | [facility] | | | LEVEL | | | LABORATORY | | | | | | SERVICES, | | | | | | CORE | | + + + + + + + + | Specimen | + + | Blood - Blood | + + + + + | Narrative | Performed At | + + + | INR Therapeutic ranges for full anticoagulation: INR for | [facility] | | Venous Thromboembolism (2.0 - 3.0) INR INR for | LABORATORY | | most patients with mech. valves (2.5 - 3.5) INR APTT | SERVICES, CORE | | Therapeutic Range: (75 - 120) sec | | | Heparin levels of 0.35 - 0.7 U/mL | | + + + + + + + + | Performing | Address | City/State/Zipcode | Phone Number | | Organization | | | | + + + + + | [facility] | [address] | [place] [address] | | | SERVICES, CORE | [address] | | | + + + + + PRODUCT - PLATELET PHERESIS LEUKOREDUCED (09/04/2013 5:15 PM PDT) + + + + + + | Component | Value | Ref Range | Performed | Pathologist | | | | | At | Signature | + + + + + + | PRODUCT | PLATELETS PHERESIS, | | [facility] | | | DESCRIPTION | LEUKOCYTE REDUCED, | | DEPARTMENT | | | | IRRADIATED | | OF | | | | | | PATHOLOGY | | + + + + + + | PRODUCT | [id number] | | [facility] | | | UNIT # | | | DEPARTMENT | | | | | | OF | | | | | | PATHOLOGY | | + + + + + + | UNIT ABO | A | | [facility] | | | | | | DEPARTMENT | | | | | | OF | | | | | | PATHOLOGY | | + + + + + + | UNIT RH | POS | | [facility] | | | | | | DEPARTMENT | | | | | | OF | | | | | | PATHOLOGY | | + + + + + + | STATUS OF | Returned to Blood Bank | | [facility] | | | UNIT | | | DEPARTMENT | | | | | | OF | | | | | | PATHOLOGY | | + + + + + + | BLOOD | [id number] | | [facility] | | | PRODUCT | | | DEPARTMENT | | | CODE | | | OF | | | | | | PATHOLOGY | | + + + + + + + + | Specimen | + + | | + + + + + + + | Performing | Address | City/State/Zipcode | Phone Number | | Organization | | | | + + + + + | [facility] | [address] | [place], [place] [address] | | | PATHOLOGY | [address] | | | + + + + + PRODUCT - PLATELET PHERESIS LEUKOREDUCED (09/04/2013 5:15 PM PDT) + + + + + + | Component | Value | Ref Range | Performed | Pathologist | | | | | At | Signature | + + + + + + | PRODUCT | PLATELETS PHERESIS, | | [facility] | | | DESCRIPTION | LEUKOCYTE REDUCED, | | DEPARTMENT | | | | IRRADIATED | | OF | | | | | | PATHOLOGY | | + + + + + + | PRODUCT | [id number] | | [facility] | | | UNIT # | | | DEPARTMENT | | | | | | OF | | | | | | PATHOLOGY | | + + + + + + | UNIT ABO | A | | [facility] | | | | | | DEPARTMENT | | | | | | OF | | | | | | PATHOLOGY | | + + + + + + | UNIT RH | POS | | [facility] | | | | | | DEPARTMENT | | | | | | OF | | | | | | PATHOLOGY | | + + + + + + | STATUS OF | Returned to Blood Bank | | [facility] | | | UNIT | | | DEPARTMENT | | | | | | OF | | | | | | PATHOLOGY | | + + + + + + | BLOOD | [id number] | | [facility] | | | PRODUCT | | | DEPARTMENT | | | CODE | | | OF | | | | | | PATHOLOGY | | + + + + + + + + | Specimen | + + | | + + + + + + + | Performing | Address | City/State/Zipcode | Phone Number | | Organization | | | | + + + + + | [facility] | [address] | [place] [address] | | | PATHOLOGY | [address] | | | + + + + + LACTATE (ART), POC (09/04/2013 5:09 PM PDT) + +-------+ + + + | Component | Value | Ref Range | Performed | Pathologist | | | | | At | Signature | + +-------+ + + + | LACTATE | 1.0 | 0.5 - 1.6 | [facility] - | | | ARTERIAL, | | mmol/L | [facility] | | | POC | | | [facility] | | | | | | OF CARE | | | | | | TESTS | | + +-------+ + + + + + | Specimen | + + | | + + + + + + + | Performing | Address | City/State/Zipcode | Phone Number | | Organization | | | | + + + + + | [facility] | [address] | [place], [place] | | | [facility] | [address] | [address] | | | TESTS | | | | + + + + + SODIUM POC (09/04/2013 5:09 PM PDT) + +-------+ + + + | Component | Value | Ref Range | Performed | Pathologist | | | | | At | Signature | + +-------+ + + + | SODIUM, POC | 141 | 134 - 143 | [facility] - | | | | | mmol/L | [facility] | | | | | | [facility] | | | | | | OF CARE | | | | | | TESTS | | + +-------+ + + + + + | Specimen | + + | | + + + + + + + | Performing | Address | City/State/Zipcode | Phone Number | | Organization | | | | + + + + + | [facility] | [address] | [place], [place] | | | DOM POINT OF CARE | [address] | [address] | | | TESTS | | | | + + + + + POTASSIUM, POC (09/04/2013 5:09 PM PDT) + +-------+ + + + | Component | Value | Ref Range | Performed | Pathologist | | | | | At | Signature | + +-------+ + + + | POTASSIUM, | 4.3 | 3.4 - 5.0 | [facility] - | | | POC | | mmol/L | [facility] | | | | | | [facility] | | | | | | OF CARE | | | | | | TESTS | | + +-------+ + + + + + | Specimen | + + | | + + + + + + + | Performing | Address | City/State/Zipcode | Phone Number | | Organization | | | | + + + + + | [facility] | [address] | [place], [place] | | | [facility] | [facility] | [address] | | | TESTS | | | | + + + + + GLUCOSE, POC (09/04/2013 5:09 PM PDT) + +---------+ + + + | Component | Value | Ref Range | Performed | Pathologist | | | | | At | Signature | + +---------+ + + + | GLUCOSE, | 120 (H) | 60 - 99 mg/dL | [facility] - | | | POC | | | [facility] | | | | | | [facility] | | [...] + + + + + | [facility] | [address] | [place], [place] | | | [facility] OF CARE | [address] | [address] | | | TESTS | | | | + + + + + CHLORIDE, POC (09/04/2013 5:09 PM PDT) + +---------+ + + + | Component | Value | Ref Range | Performed | Pathologist | | | | | At | Signature | + +---------+ + + + | CHLORIDE, | 112 (H) | 97 - 108 mmol/L | [facility] - | | | POC | | | [facility] | | | | | | [facility] | | [...] | [facility] | [address] | [place], [place] | | | [facility] [place] | [facility] | [address] | | | TESTS | | | | + + + + + ALEXANDRA IONIZED CA, POC (09/04/2013 5:09 PM PDT) + + + + + + | Component | Value | Ref Range | Performed | Pathologist | | | | | At | Signature | + + + + + + | ALEXANDRA | 1.08 (L) | 1.14 - 1.32 | [facility] - | | | IONIZED [place], | | mmol/L | [facility] | | | POC | | | [facility] | | | | | | OF CARE | | | | | | TESTS | | + + + + + + + + | Specimen | + + | | + + + + + + + | Performing | Address | City/State/Zipcode | Phone Number | | Organization | | | | + + + + + | [facility] | [address] | [place], [place] | | | DOM POINT OF CARE | [facility] | [address] | | | TESTS | | | | + + + + + HEMOGLOBIN-COOX POC (09/04/2013 5:09 PM PDT) + + + + + + | Component | Value | Ref Range | Performed | Pathologist | | | | | At | Signature | + + + + + + | TOTAL | 9.3 (L) | 13.5 - 17.5 | [facility] - | | | HEMOGLOBIN, | | g/dL | [facility] | | | POC | | | [facility] | | | | | | OF CARE | | | | | | TESTS | | + + + + + + | HEMATOCRIT, | 28.5 (L) | 41.0 - 53.0 % | [facility] - | | | POC | | | [facility] | | | | | | [facility] | | | | | | OF CARE | | | | | | TESTS | | + + + + + + + + | Specimen | + + | | + + + + + + + | Performing | Address | City/State/Zipcode | Phone Number | | Organization | | | | + + + + + | [facility] | [address] | [place], [place] | | | [facility] | [address] | [address] | | | TESTS | | | | + + + + + ARTERIAL BLOOD GAS, POC (09/04/2013 5:09 PM PDT) + + + + + + | Component | Value | Ref Range | Performed | Pathologist | | | | | At | Signature | + + + + + + | PH | 7.34 (L) | 7.37 - 7.44 | [facility] - | | | ARTERIAL, | | | [facility] | | | POC | | | [facility] | | | | | | OF CARE | | | | | | TESTS | | + + + + + + | PO2 | 133 (H) | 72 - 104 mmHg | [facility] - | | | ARTERIAL, | | | [facility] | | | POC | | | [facility] | | | | | | OF CARE | | | | | | TESTS | | + + + + + + | PCO2 | 43 (H) | 32 - 43 mmHg | [facility] | | | [facility], | | | [facility] | | | POC | | | [place] [place] | | | | | | OF CARE | | | | | | TESTS | | + + + + + + | O2 SAT | 99.4 (H) | 92.0 - 98.0 % | [facility] - | | | [facility], | | | [facility] | | | POC | | | [facility] | | | | | | OF CARE | | | | | | TESTS | | + + + + + + | HCO3 | 23.3 | 21 - 28 mmol/L | [facility] | | | [facility], | | | [facility] | | | POC | | | [facility] | | | | | | OF CARE | | | | | | TESTS | | + + + + + + | BASE EXCESS | -2.5 | | [facility] | | | [facility], | | | [facility] | | | POC | | | [facility] | | | | | | OF CARE | | | | | | TESTS | | + + + + + + + + | Specimen | + + | | + + + + + + + | Performing | Address | City/State/Zipcode | Phone Number | | Organization | | | | + + + + + | [facility] | [address] | [place], [place] | | | [facility] | [address] | [address] | | | TESTS | | | | + + + + + BECKY (ART)LACY (09/04/2013 4:45 PM PDT) + +-------+ + + + | Component | Value | Ref Range | Performed | Pathologist | | | | | At | Signature | + +-------+ + + + | LACTATE | 1.1 | 0.5 - 1.6 | [facility] | | | [facility], | | mmol/L | [facility] | | | POC | | | [facility] | | | | | | OF CARE | | | | | | TESTS | | + +-------+ + + + + + | Specimen | + + | | + + + + + + + | Performing | Address | City/State/Zipcode | Phone Number | | Organization | | | | + + + + + | [facility] | [address] | [place], [place] | | | [facility] | [address] | [address] | | | TESTS | | | | + + + + + SODIUM, POC (09/04/2013 4:45 PM PDT) + +-------+ + + + | Component | Value | Ref Range | Performed | Pathologist | | | | | At | Signature | + +-------+ + + + | SODIUM, POC | 137 | 134 - 143 | [facility] | | | | | mmol/L | [facility] | | | | | | [facility] | | | | | | OF CARE | | | | | | TESTS | | + +-------+ + + + + + | Specimen | + + | | + + + + + + + | Performing | Address | City/State/Zipcode | Phone Number | | Organization | | | | + + + + + | [facility] | [address] | [place], [place] | | | [facility] | [facility] | [address] | | | TESTS | | | | + + + + + POTASSIUM, POC (09/04/2013 4:45 PM PDT) + +---------+ + + + | Component | Value | Ref Range | Performed | Pathologist | | | | | At | Signature | + +---------+ + + + | POTASSIUM, | 5.1 (H) | 3.4 - 5.0 | [facility] | | | POC | | mmol/L | [facility] | | | | | | [facility] | | [...] | [facility] | [address] | [place], [place] | | | [facility] | [address] | [address] | | | TESTS | | | | + + + + + GLUCOSE, POC (09/04/2013 4:45 PM PDT) + +---------+ + + + | Component | Value | Ref Range | Performed | Pathologist | | | | | At | Signature | + +---------+ + + + | GLUCOSE, | 126 (H) | 60 - 99 mg/dL | [facility] | | | POC | | | [facility] | | | | | | [facility] | | [...] + + + + + | [facility] | [address] | [place], [place] | | | [facility] | [facility] | [address] | | | TESTS | | | | + + + + + CHLORIDELACY (09/04/2013 4:45 PM PDT) + +---------+ + + + | Component | Value | Ref Range | Performed | Pathologist | | | | | At | Signature | + +---------+ + + + | CHLORIDE, | 115 (H) | 97 - 108 mmol/L | [facility] | | | POC | | | [facility] | | | | | | [facility] | | [...] + + + + | [facility] | [address] | [place], [place] | | | [facility] | [facility] | [address] | | | TESTS | | | | + + + + + ALEXANDRA IONIZED CA, POC (09/04/2013 4:45 PM PDT) + + + + + + | Component | Value | Ref Range | Performed | Pathologist | | | | | At | Signature | + + + + + + | ALEXANDRA | >2.00 (H) | 1.14 - 1.32 | [facility] | | | IONIZED [place], | | mmol/L | [facility] | | | POC | | | [facility] | | | | | | OF CARE | | | | | | TESTS | | + + + + + + + + | Specimen | + + | | + + + + + + + | Performing | Address | City/State/Zipcode | Phone Number | | Organization | | | | + + + + + | [facility] | [address] | [place], [place] | | | [facility] CARE | [address] | [address] | | | TESTS | | | | + + + + + HEMOGLOBIN-LACY PEREZ (09/04/2013 4:45 PM PDT) + + + + + + | Component | Value | Ref Range | Performed | Pathologist | | | | | At | Signature | + + + + + + | TOTAL | 9.0 (L) | 13.5 - 17.5 | [facility] | | | HEMOGLOBIN, | | g/dL | [facility] | | | POC | | | [facility] | | | | | | OF CARE | | | | | | TESTS | | + + + + + + | HEMATOCRIT, | 27.5 (L) | 41.0 - 53.0 % | [facility] | | | POC | | | [facility] | | | | | | [facility] | | | | | | OF CARE | | | | | | TESTS | | + + + + + + + + | Specimen | + + | | + + + + + + + | Performing | Address | City/State/Zipcode | Phone Number | | Organization | | | | + + + + + | [facility] | [address] | [place], [place] | | | [facility] | [facility] | [address] | | | TESTS | | | | + + + + + ARTERIAL BLOOD GAS, POC (09/04/2013 4:45 PM PDT) + + + + + + | Component | Value | Ref Range | Performed | Pathologist | | | | | At | Signature | + + + + + + | PH | 7.43 | 7.37 - 7.44 | [facility] | | | ARTERIAL, | | | [facility] | | | POC | | | [facility] | | | | | | OF CARE | | | | | | TESTS | | + + + + + + | PO2 | 467 (H) | 72 - 104 mmHg | [facility] | | | ARTERIAL, | | | [facility] | | | POC | | | [facility] | | | | | | OF CARE | | | | | | TESTS | | + + + + + + | PCO2 | 33 | 32 - 43 mmHg | [facility] | | | ARTERIAL, | | | [facility] | | | POC | | | DOM POINT | | | | | | OF CARE | | | | | | TESTS | | + + + + + + | O2 SAT | 100.5 (H) | 92.0 - 98.0 % | [facility] | | | ARTERIAL, | | | [facility] | | | POC | | | DOM POINT | | | | | | OF CARE | | | | | | TESTS | | + + + + + + | HCO3 | 21.8 | 21 - 28 mmol/L | [facility] | | | ARTERIAL, | | | [facility] | | | POC | | | DOM POINT | | | | | | OF CARE | | | | | | TESTS | | + + + + + + | BASE EXCESS | -2.5 | | [facility] | | | ARTERIAL, | | | [facility] | | | POC | | | DOM POINT | | | | | | OF CARE | | | | | | TESTS | | + + + + + + + + | Specimen | + + | | + + + + + + + | Performing | Address | City/State/Zipcode | Phone Number | | Organization | | | | + + + + + | [facility] | [address] | [place], [place] | | | [facility] CARE | [address] | [address] | | | TESTS | | | | + + + + + LACTATE (ART) POC (09/04/2013 4:15 PM PDT) + +-------+ + + + | Component | Value | Ref Range | Performed | Pathologist | | | | | At | Signature | + +-------+ + + + | LACTATE | 0.7 | 0.5 - 1.6 | [facility] | | | ARTERIAL, | | mmol/L | [facility] | | | POC | | | [facility] | | | | | | OF CARE | | | | | | TESTS | | + +-------+ + + + + + | Specimen | + + | | + + + + + + + | Performing | Address | City/State/Zipcode | Phone Number | | Organization | | | | + + + + + | [facility] | [address] | [place], [place] | | | [facility] | [facility] | [address] | | | TESTS | | | | + + + + + SODIUM, POC (09/04/2013 4:15 PM PDT) + +-------+ + + + | Component | Value | Ref Range | Performed | Pathologist | | | | | At | Signature | + +-------+ + + + | SODIUM, POC | 138 | 134 - 143 | [facility] | | | | | mmol/L | [facility] | | | | | | [facility] | | | | | | OF CARE | | | | | | TESTS | | + +-------+ + + + + + | Specimen | + + | | + + + + + + + | Performing | Address | City/State/Zipcode | Phone Number | | Organization | | | | + + + + + | [facility] | [address] | [place], [place] | | | [facility] | [address] | [address] | | | TESTS | | | | + + + + + POTASSIUM, POC (09/04/2013 4:15 PM PDT) + +-------+ + + + | Component | Value | Ref Range | Performed | Pathologist | | | | | At | Signature | + +-------+ + + + | POTASSIUM, | 4.9 | 3.4 - 5.0 | [facility] | | | POC | | mmol/L | [facility] | | | | | | [facility] | | | | | | OF CARE | | | | | | TESTS | | + +-------+ + + + + + | Specimen | + + | | + + + + + + + | Performing | Address | City/State/Zipcode | Phone Number | | Organization | | | | + + + + + | [facility] | [address] | [place], [place] | | | [facility] | [address] | [address] | | | TESTS | | | | + + + + + GLUCOSE, POC (09/04/2013 4:15 PM PDT) + +---------+ + + + | Component | Value | Ref Range | Performed | Pathologist | | | | | At | Signature | + +---------+ + + + | GLUCOSE, | 121 (H) | 60 - 99 mg/dL | [facility] | | | POC | | | [facility] | | | | | | [facility] | | [...] | [facility] | [address] | [place], [place] | | | [facility] | [address] | [address] | | | TESTS | | | | + + + + + CHLORIDE, POC (09/04/2013 4:15 PM PDT) + +---------+ + + + | Component | Value | Ref Range | Performed | Pathologist | | | | | At | Signature | + +---------+ + + + | CHLORIDE, | 112 (H) | 97 - 108 mmol/L | [facility] | | | POC | | | [facility] | | | | | | [facility] | | [...] | [facility] | [address] | [place], [place] | | | [facility] | [address] | [address] | | | TESTS | | | | + + + + + ALEXANDRA IONIZED CA, POC (09/04/2013 4:15 PM PDT) + + + + + + | Component | Value | Ref Range | Performed | Pathologist | | | | | At | Signature | + + + + + + | ALEXANDRA | 1.06 (L) | 1.14 - 1.32 | [facility] - | | | IONIZED CA, | | mmol/L | [facility] | | | POC | | | [facility] | | | | | | OF CARE | | | | | | TESTS | | + + + + + + + + | Specimen | + + | | + + + + + + + | Performing | Address | City/State/Zipcode | Phone Number | | Organization | | | | + + + + + | [facility] | [address] | [place], [place] | | | [facility] | [address] | [address] | | | TESTS | | | | + + + + + HEMOGLOBIN-COOX, POC (09/04/2013 4:15 PM PDT) + + + + + + | Component | Value | Ref Range | Performed | Pathologist | | | | | At | Signature | + + + + + + | TOTAL | 9.2 (L) | 13.5 - 17.5 | [facility] - | | | HEMOGLOBIN, | | g/dL | [facility] | | | POC | | | [facility] | | | | | | OF CARE | | | | | | TESTS | | + + + + + + | HEMATOCRIT, | 28.2 (L) | 41.0 - 53.0 % | [facility] | | | POC | | | [facility] | | | | | | [facility] | | | | | | OF CARE | | | | | | TESTS | | + + + + + + + + | Specimen | + + | | + + + + + + + | Performing | Address | City/State/Zipcode | Phone Number | | Organization | | | | + + + + + | [facility] | [address] | [place], [place] | | | [facility] | [address] | [address] | | | TESTS | | | | + + + + + ARTERIAL BLOOD GAS, POC (09/04/2013 4:15 PM PDT) + + + + + + | Component | Value | Ref Range | Performed | Pathologist | | | | | At | Signature | + + + + + + | PH | 7.30 (L) | 7.37 - 7.44 | [facility] - | | | ARTERIAL, | | | [facility] | | | POC | | | [facility] | | | | | | OF CARE | | | | | | TESTS | | + + + + + + | PO2 | 238 (H) | 72 - 104 mmHg | [facility] - | | | ARTERIAL, | | | [facility] | | | POC | | | [facility], POINT | | | | | | OF CARE | | | | | | TESTS | | + + + + + + | PCO2 | 46 (H) | 32 - 43 mmHg | [facility] - | | | ARTERIAL, | | | [facility] | | | POC | | | [place] | | | | | | OF CARE | | | | | | TESTS | | + + + + + + | O2 SAT | 100.0 (H) | 92.0 - 98.0 % | [facility] - | | | ARTERIAL, | | | [facility] | | | POC | | | [place] | | | | | | OF CARE | | | | | | TESTS | | + + + + + + | HCO3 | 22.7 | 21 - 28 mmol/L | [facility] - | | | ARTERIAL, | | | [facility] | | | POC | | | [place] | | | | | | OF CARE | | | | | | TESTS | | + + + + + + | BASE EXCESS | -3.7 | | [facility] | | | [facility] | | | [facility] | | | POC | | | [facility] | | | | | | OF CARE | | | | | | TESTS | | + + + + + + + + | Specimen | + + | | + + + + + + + | Performing | Address | City/State/Zipcode | Phone Number | | Organization | | | | + + + + + | [facility] | [address] | [place], [place] | | | [facility] | [address] | [address] | | | TESTS | | | | + + + + + LACTATE (ART), POC (09/04/2013 3:59 PM PDT) + +-------+ + + + | Component | Value | Ref Range | Performed | Pathologist | | | | | At | Signature | + +-------+ + + + | LACTATE | 0.6 | 0.5 - 1.6 | [facility] - | | | ARTERIAL, | | mmol/L | [facility] | | | POC | | | [facility] | | | | | | OF CARE | | | | | | TESTS | | + +-------+ + + + + + | Specimen | + + | | + + + + + + + | Performing | Address | City/State/Zipcode | Phone Number | | Organization | | | | + + + + + | [facility] | [address] | [place], [place] | | | [facility] | [facility] | [address] | | | TESTS | | | | + + + + + SODIUM, POC (09/04/2013 3:59 PM PDT) + +-------+ + + + | Component | Value | Ref Range | Performed | Pathologist | | | | | At | Signature | + +-------+ + + + | SODIUM, POC | 136 | 134 - 143 | [facility] - | | | | | mmol/L | [facility] | | | | | | [facility] | | | | | | OF CARE | | | | | | TESTS | | + +-------+ + + + + + | Specimen | + + | | + + + + + + + | Performing | Address | City/State/Zipcode | Phone Number | | Organization | | | | + + + + + | [facility] | [address] | [place], [place] | | | [facility]ARE | [address] | [address] | | | TESTS | | | | + + + + + POTASSIUM, POC (09/04/2013 3:59 PM PDT) + +-------+ + + + | Component | Value | Ref Range | Performed | Pathologist | | | | | At | Signature | + +-------+ + + + | POTASSIUM, | 5.0 | 3.4 - 5.0 | [facility] - | | | POC | | mmol/L | [facility] | | | | | | [facility] | | | | | | OF CARE | | | | | | TESTS | | + +-------+ + + + + + | Specimen | + + | | + + + + + + + | Performing | Address | City/State/Zipcode | Phone Number | | Organization | | | | + + + + + | [facility] | [address] | [place], [place] | | | [facility] | [facility] | [address] | | | TESTS | | | | + + + + + GLUCOSE, POC (09/04/2013 3:59 PM PDT) + +---------+ + + + | Component | Value | Ref Range | Performed | Pathologist | | | | | At | Signature | + +---------+ + + + | GLUCOSE, | 113 (H) | 60 - 99 mg/dL | [facility] | | | POC | | | [facility] | | | | | | [facility] | | [...] + + + + | [facility] | [address] | [place], [place] | | | [facility] | [facility] | [address] | | | TESTS | | | | + + + + + CHLORIDE, POC (09/04/2013 3:59 PM PDT) + +---------+ + + + | Component | Value | Ref Range | Performed | Pathologist | | | | | At | Signature | + +---------+ + + + | CHLORIDE, | 113 (H) | 97 - 108 mmol/L | [facility] | | | POC | | | [facility] | | | | | | [facility] | | [...] + + + + | [facility] | [address] | [place], [place] | | | [facility] | [address] | [address] | | | TESTS | | | | + + + + + ALEXANDRA IONIZED CA, POC (09/04/2013 3:59 PM PDT) + + + + + + | Component | Value | Ref Range | Performed | Pathologist | | | | | At | Signature | + + + + + + | ALEXANDRA | 1.07 (L) | 1.14 - 1.32 | [facility] | | | IONIZED [place], | | mmol/L | [facility] | | | POC | | | [facility] | | | | | | OF CARE | | | | | | TESTS | | + + + + + + + + | Specimen | + + | | + + + + + + + | Performing | Address | City/[facility] | Phone Number | | Organization | | | | + + + + + | [facility] | [address] | [place], [place] | | | [facility] | [facility] | [address] | | | TESTS | | | | + + + + + HEMOGLOBIN-LACY PEREZ (09/04/2013 3:59 PM PDT) + + + + + + | Component | Value | Ref Range | Performed | Pathologist | | | | | At | Signature | + + + + + + | TOTAL | 9.2 (L) | 13.5 - 17.5 | [facility] - | | | HEMOGLOBIN, | | g/dL | [facility] | | | POC | | | DOM, POINT | | | | | | OF CARE | | | | | | TESTS | | + + + + + + | HEMATOCRIT, | 28.3 (L) | 41.0 - 53.0 % | [facility] - | | | POC | | | [facility] | | | | | | DOM, POINT | | | | | | OF CARE | | | | | | TESTS | | + + + + + + + + | Specimen | + + | | + + + + + + + | Performing | Address | City/State/Zipcode | Phone Number | | Organization | | | | + + + + + | [facility] | [address] | [place], [place] | | | [facility] | [address] | [address] | | | TESTS | | | | + + + + + ARTERIAL BLOOD GAS, POC (09/04/2013 3:59 PM PDT) + + + + + + | Component | Value | Ref Range | Performed | Pathologist | | | | | At | Signature | + + + + + + | PH | 7.26 (L) | 7.37 - 7.44 | [facility] | | | ARTERIAL, | | | [facility] | | | POC | | | DOM POINT | | | | | | OF CARE | | | | | | TESTS | | + + + + + + | PO2 | 283 (H) | 72 - 104 mmHg | [facility] - | | | ARTERIAL, | | | [facility] | | | POC | | | DOM POINT | | | | | | OF CARE | | | | | | TESTS | | + + + + + + | PCO2 | 44 (H) | 32 - 43 mmHg | [facility] - | | | ARTERIAL, | | | [facility] | | | POC | | | DOM POINT | | | | | | OF CARE | | | | | | TESTS | | + + + + + + | O2 SAT | 100.2 (H) | 92.0 - 98.0 % | [facility] - | | | ARTERIAL, | | | [facility] | | | POC | | | [facility] | | | | | | OF CARE | | | | | | TESTS | | + + + + + + | HCO3 | 20.2 (L) | 21 - 28 mmol/L | [facility] - | | | ARTERIAL, | | | [facility] | | | POC | | | DOM POINT | | | | | | OF CARE | | | | | | TESTS | | + + + + + + | BASE EXCESS | -6.8 | | [facility] - | | | ARTERIAL, | | | [facility] | | | POC | | | [facility] | | | | | | OF CARE | | | | | | TESTS | | + + + + + + + + | Specimen | + + | | + + + + + + + | Performing | Address | City/State/Zipcode | Phone Number | | Organization | | | | + + + + + | [facility] | [address] | [place], [place] | | | [facility] OF CARE | [address] | [address] | | | TESTS | | | | + + + + + LACTATE (ART), POC (09/04/2013 3:33 PM PDT) + +-------+ + + + | Component | Value | Ref Range | Performed | Pathologist | | | | | At | Signature | + +-------+ + + + | LACTATE | 0.6 | 0.5 - 1.6 | [facility] - | | | ARTERIAL, | | mmol/L | [facility] | | | POC | | | DOM POINT | | | | | | OF CARE | | | | | | TESTS | | + +-------+ + + + + + | Specimen | + + | | + + + + + + + | Performing | Address | City/State/Zipcode | Phone Number | | Organization | | | | + + + + + | [facility] | [address] | [place], [place] | | | [facility] | [address] | [address] | | | TESTS | | | | + + + + + SODIUM, POC (09/04/2013 3:33 PM PDT) + +-------+ + + + | Component | Value | Ref Range | Performed | Pathologist | | | | | At | Signature | + +-------+ + + + | SODIUM, POC | 135 | 134 - 143 | [facility] | | | | | mmol/L | [facility] | | | | | | [facility] | | | | | | OF CARE | | | | | | TESTS | | + +-------+ + + + + + | Specimen | + + | | + + + + + + + | Performing | Address | City/State/Zipcode | Phone Number | | Organization | | | | + + + + + | [facility] | [address] | [place], [place] | | | [facility] | [address] | [address] | | | TESTS | | | | + + + + + POTASSIUM, POC (09/04/2013 3:33 PM PDT) + + + + + + | Component | Value | Ref Range | Performed | Pathologist | | | | | At | Signature | + + + + + + | POTASSIUM, | 6.3 (AA) | 3.4 - 5.0 | [facility] - | | | POC | | mmol/L | [facility] | | | | | | [facility] | | | | | | OF CARE | | | | | | TESTS | | + + + + + + + + | Specimen | + + | | + + + + + + + | Performing | Address | City/State/Zipcode | Phone Number | | Organization | | | | + + + + + | [facility] | [address] | [place], [place] | | | [facility] | [address] | [address] | | | TESTS | | | | + + + + + GLUCOSE, POC (09/04/2013 3:33 PM PDT) + +---------+ + + + | Component | Value | Ref Range | Performed | Pathologist | | | | | At | Signature | + +---------+ + + + | GLUCOSE, | 101 (H) | 60 - 99 mg/dL | [facility] - | | | POC | | | [facility] | | | | | | [facility] | | | | | | OF CARE | | | | | | TESTS | | + +---------+ + + + + + | Specimen | + + | | + + + + + + + | Performing | Address | City/State/Zipcode | Phone Number | | Organization | | | | + + + + + | [facility] | [address] | [place], [place] | | | [facility] | [address] | [address] | | | TESTS | | | | + + + + + CHLORIDE, POC (09/04/2013 3:33 PM PDT) + +---------+ + + + | Component | Value | Ref Range | Performed | Pathologist | | | | | At | Signature | + +---------+ + + + | CHLORIDE, | 113 (H) | 97 - 108 mmol/L | [facility] - | | | POC | | | [facility] | | | | | | [facility] | | [...] + + + + + | [facility] | [address] | [place], [place] | | | [facility] | [address] | [address] | | | TESTS | | | | + + + + + ALEXANDRA IONIZED CA, POC (09/04/2013 3:33 PM PDT) + + + + + + | Component | Value | Ref Range | Performed | Pathologist | | | | | At | Signature | + + + + + + | ALEXANDRA | 1.03 (L) | 1.14 - 1.32 | [facility] - | | | IONIZED CA, | | mmol/L | [facility] | | | POC | | | [facility] | | | | | | OF CARE | | | | | | TESTS | | + + + + + + + + | Specimen | + + | | + + + + + + + | Performing | Address | City/State/Zipcode | Phone Number | | Organization | | | | + + + + + | [facility] | [address] | [place], [place] | | | [facility] | [address] | [address] | | | TESTS | | | | + + + + + HEMOGLOBIN-COOX, POC (09/04/2013 3:33 PM PDT) + + + + + + | Component | Value | Ref Range | Performed | Pathologist | | | | | At | Signature | + + + + + + | TOTAL | 9.2 (L) | 13.5 - 17.5 | [facility] - | | | HEMOGLOBIN, | | g/dL | [facility] | | | POC | | | [facility] | | | | | | OF CARE | | | | | | TESTS | | + + + + + + | HEMATOCRIT, | 28.3 (L) | 41.0 - 53.0 % | [facility] - | | | POC | | | [facility] | | | | | | [facility] | | | | | | OF CARE | | | | | | TESTS | | + + + + + + + + | Specimen | + + | | + + + + + + + | Performing | Address | City/State/Zipcode | Phone Number | | Organization | | | | + + + + + | [facility] | [address] | [place], [place] | | | [facility] CARE | [address] | [address] | | | TESTS | | | | + + + + + ARTERIAL BLOOD GAS, POC (09/04/2013 3:33 PM PDT) + + + + + + | Component | Value | Ref Range | Performed | Pathologist | | | | | At | Signature | + + + + + + | PH | 7.35 (L) | 7.37 - 7.44 | [facility] - | | | ARTERIAL, | | | [facility] | | | POC | | | [facility] | | | | | | OF CARE | | | | | | TESTS | | + + + + + + | PO2 | 337 (H) | 72 - 104 mmHg | [facility] - | | | ARTERIAL, | | | [facility] | | | POC | | | [facility] | | | | | | OF CARE | | | | | | TESTS | | + + + + + + | PCO2 | 36 | 32 - 43 mmHg | [facility] - | | | ARTERIAL, | | | [facility] | | | POC | | | [facility] | | | | | | OF CARE | | | | | | TESTS | | + + + + + + | O2 SAT | 100.3 (H) | 92.0 - 98.0 % | [facility] - | | | ARTERIAL, | | | [facility] | | | POC | | | [facility] | | | | | | OF CARE | | | | | | TESTS | | + + + + + + | HCO3 | 19.8 (L) | 21 - 28 mmol/L | [facility] - | | | ARTERIAL, | | | [facility] | | | POC | | | [facility] | | | | | | OF CARE | | | | | | TESTS | | + + + + + + | BASE EXCESS | -5.9 | | [facility] - | | | ARTERIAL, | | | [facility] | | | POC | | | [facility] | | | | | | OF CARE | | | | | | TESTS | | + + + + + + + + | Specimen | + + | | + + + + + + + | Performing | Address | City/State/Zipcode | Phone Number | | Organization | | | | + + + + + | [facility] | [address] | [place], [place] | | | [facility] | [address] | [address] | | | TESTS | | | | + + + + + LACTATE (ART), POC (09/04/2013 3:02 PM PDT) + +-------+ + + + | Component | Value | Ref Range | Performed | Pathologist | | | | | At | Signature | + +-------+ + + + | LACTATE | 0.6 | 0.5 - 1.6 | [facility] - | | | ARTERIAL, | | mmol/L | [facility] | | | POC | | | [facility] | | | | | | OF CARE | | | | | | TESTS | | + +-------+ + + + + + | Specimen | + + | | + + + + + + + | Performing | Address | City/State/Zipcode | Phone Number | | Organization | | | | + + + + + | [facility] | [address] | [place], [place] | | | [facility] | [address] | [address] | | | TESTS | | | | + + + + + SODIUM, POC (09/04/2013 3:02 PM PDT) + +-------+ + + + | Component | Value | Ref Range | Performed | Pathologist | | | | | At | Signature | + +-------+ + + + | SODIUM, POC | 138 | 134 - 143 | [facility] - | | | | | mmol/L | [facility] | | | | | | [facility] | | | | | | OF CARE | | | | | | TESTS | | + +-------+ + + + + + | Specimen | + + | | + + + + + + + | Performing | Address | City/State/Zipcode | Phone Number | | Organization | | | | + + + + + | [facility] | [address] | [place], [place] | | | [facility] | [address] | [address] | | | TESTS | | | | + + + + + POTASSIUM, POC (09/04/2013 3:02 PM PDT) + +-------+ + + + | Component | Value | Ref Range | Performed | Pathologist | | | | | At | Signature | + +-------+ + + + | POTASSIUM, | 3.9 | 3.4 - 5.0 | [facility] | | | POC | | mmol/L | [place] | | | | | | [facility] | | | | | | OF CARE | | | | | | TESTS | | + +-------+ + + + + + | Specimen | + + | | + + + + + + + | Performing | Address | City/State/Zipcode | Phone Number | | Organization | | | | + + + + + | [facility] | [address] | [place], [place] | | | [facility] [place] | [facility] | [address] | | | TESTS | | | | + + + + + GLUCOSE, POC (09/04/2013 3:02 PM PDT) + +-------+ + + + | Component | Value | Ref Range | Performed | Pathologist | | | | | At | Signature | + +-------+ + + + | GLUCOSE, | 94 | 60 - 99 mg/dL | [facility] - | | | POC | | | [place] | | | | | | [facility] | | | | | | OF CARE | | | | | | TESTS | | + +-------+ + + + + + | Specimen | + + | | + + + + + + + | Performing | Address | City/State/Zipcode | Phone Number | | Organization | | | | + + + + + | [facility] | [address] | [place], [place] | | | [facility] | [address] | [address] | | | TESTS | | | | + + + + + CHLORIDE, POC (09/04/2013 3:02 PM PDT) + +---------+ + + + | Component | Value | Ref Range | Performed | Pathologist | | | | | At | Signature | + +---------+ + + + | CHLORIDE, | 114 (H) | 97 - 108 mmol/L | [facility] | | | POC | | | [facility] | | | | | | [facility] | | [...] + + + + + | [facility] | [address] | [place], [place] | | | [facility] [place] | [facility] | [address] | | | TESTS | | | | + + + + + ALEXANDRA IONIZED CA, POC (09/04/2013 3:02 PM PDT) + +-------+ + + + | Component | Value | Ref Range | Performed | Pathologist | | | | | At | Signature | + +-------+ + + + | ALEXANDRA | 1.14 | 1.14 - 1.32 | [facility] - | | | IONIZED [place], | | mmol/L | [facility] | | | POC | | | [place] [place] | | | | | | OF CARE | | | | | | TESTS | | + +-------+ + + + + + | Specimen | + + | | + + + + + + + | Performing | Address | City/State/Zipcode | Phone Number | | Organization | | | | + + + + + | [facility] | [address] | [place], [place] | | | [facility] | [facility] | [address] | | | TESTS | | | | + + + + + HEMOGLOBIN-COOX, POC (09/04/2013 3:02 PM PDT) + + + + + + | Component | Value | Ref Range | Performed | Pathologist | | | | | At | Signature | + + + + + + | TOTAL | 11.8 (L) | 13.5 - 17.5 | [facility] - | | | HEMOGLOBIN, | | g/dL | [facility] | | | POC | | | [facility] | | | | | | OF CARE | | | | | | TESTS | | + + + + + + | HEMATOCRIT, | 36.2 (L) | 41.0 - 53.0 % | [facility] - | | | POC | | | [facility] | | | | | | [facility] | | | | | | OF CARE | | | | | | TESTS | | + + + + + + + + | Specimen | + + | | + + + + + + + | Performing | Address | City/State/Zipcode | Phone Number | | Organization | | | | + + + + + | [facility] | [address] | [place], [place] | | | [facility] | [address] | [address] | | | TESTS | | | | + + + + + ARTERIAL BLOOD GAS, POC (09/04/2013 3:02 PM PDT) + + + + + + | Component | Value | Ref Range | Performed | Pathologist | | | | | At | Signature | + + + + + + | PH | 7.30 (L) | 7.37 - 7.44 | [facility] - | | | ARTERIAL, | | | [facility] | | | POC | | | [facility] | | | | | | OF CARE | | | | | | TESTS | | + + + + + + | PO2 | 215 (H) | 72 - 104 mmHg | [facility] - | | | ARTERIAL, | | | [facility] | | | POC | | | [facility] | | | | | | OF CARE | | | | | | TESTS | | + + + + + + | PCO2 | 38 | 32 - 43 mmHg | [facility] - | | | ARTERIAL, | | | [place] | | | POC | | | [facility] | | | | | | OF CARE | | | | | | TESTS | | + + + + + + | O2 SAT | 99.9 (H) | 92.0 - 98.0 % | [facility] - | | | ARTERIAL, | | | [facility] | | | POC | | | [place] [place] | | | | | | OF CARE | | | | | | TESTS | | + + + + + + | HCO3 | 18.6 (L) | 21 - 28 mmol/L | [facility] - | | | ARTERIAL, | | | [facility] | | | POC | | | [place] [place] | | | | | | OF CARE | | | | | | TESTS | | + + + + + + | BASE EXCESS | -7.8 | | [facility] | | | ART[facility], | | | [facility] | | | POC | | | [place], [facility] | | | | | | OF CARE | | | | | | TESTS | | + + + + + + + + | Specimen | + + | | + + + + + + + | Performing | Address | City/State/Zipcode | Phone Number | | Organization | | | | + + + + + | [facility] | [address] | [place], [place] | | | [facility] CARE | [address] | [address] | | | TESTS | | | | + + + + + LACTATE (ART), POC (09/04/2013 2:07 PM PDT) + +-------+ + + + | Component | Value | Ref Range | Performed | Pathologist | | | | | At | Signature | + +-------+ + + + | LACTATE | 0.5 | 0.5 - 1.6 | [facility] - | | | ARTERIAL, | | mmol/L | [facility] | | | POC | | | [facility] | | | | | | OF CARE | | | | | | TESTS | | + +-------+ + + + + + | Specimen | + + | | + + + + + + + | Performing | Address | City/State/Zipcode | Phone Number | | Organization | | | | + + + + + | [facility] | [address] | [place], [place] | | | [facility] | [address] | [address] | | | TESTS | | | | + + + + + SODIUM, POC (09/04/2013 2:07 PM PDT) + +-------+ + + + | Component | Value | Ref Range | Performed | Pathologist | | | | | At | Signature | + +-------+ + + + | SODIUM, POC | 139 | 134 - 143 | [facility] | | | | | mmol/L | [facility] | | | | | | [facility] | | | | | | OF CARE | | | | | | TESTS | | + +-------+ + + + + + | Specimen | + + | | + + + + + + + | Performing | Address | City/State/Zipcode | Phone Number | | Organization | | | | + + + + + | [facility] | [address] | [place], [place] | | | [facility] | [address] | [address] | | | TESTS | | | | + + + + + POTASSIUM, POC (09/04/2013 2:07 PM PDT) + +-------+ + + + | Component | Value | Ref Range | Performed | Pathologist | | | | | At | Signature | + +-------+ + + + | POTASSIUM, | 3.8 | 3.4 - 5.0 | [facility] | | | POC | | mmol/L | [facility] | | | | | | [facility] | | | | | | OF CARE | | | | | | TESTS | | + +-------+ + + + + + | Specimen | + + | | + + + + + + + | Performing | Address | City/State/Zipcode | Phone Number | | Organization | | | | + + + + + | [facility] | [address] | [place], [place] | | | [facility] | [facility] | [address] | | | TESTS | | | | + + + + + GLUCOSE, POC (09/04/2013 2:07 PM PDT) + +-------+ + + + | Component | Value | Ref Range | Performed | Pathologist | | | | | At | Signature | + +-------+ + + + | GLUCOSE, | 92 | 60 - 99 mg/dL | [facility] | | | POC | | | [facility] | | | | | | [facility] | | | | | | OF CARE | | | | | | TESTS | | + +-------+ + + + + + | Specimen | + + | | + + + + + + + | Performing | Address | City/State/Zipcode | Phone Number | | Organization | | | | + + + + + | [facility] | [address] | [place], [place] | | | [facility] | [address] | [address] | | | TESTS | | | | + + + + + CHLORIDELACY (09/04/2013 2:07 PM PDT) + +---------+ + + + | Component | Value | Ref Range | Performed | Pathologist | | | | | At | Signature | + +---------+ + + + | CHLORIDE, | 113 (H) | 97 - 108 mmol/L | [facility] | | | POC | | | [facility] | | | | | | [facility] | | [...] | [facility] | [address] | [place], [place] | | | [facility] | [address] | [address] | | | TESTS | | | | + + + + + ALEXANDRA IONIZED CA, POC (09/04/2013 2:07 PM PDT) + +-------+ + + + | Component | Value | Ref Range | Performed | Pathologist | | | | | At | Signature | + +-------+ + + + | ALEXANDRA | 1.17 | 1.14 - 1.32 | [facility] | | | IONIZED [place], | | mmol/L | [facility] | | | POC | | | [facility] | | | | | | OF CARE | | | | | | TESTS | | + +-------+ + + + + + | Specimen | + + | | + + + + + + + | Performing | Address | City/State/Zipcode | Phone Number | | Organization | | | | + + + + + | [facility] | [address] | [place], [place] | | | [facility] | [address] | [address] | | | TESTS | | | | + + + + + HEMOGLOBIN-COOX, POC (09/04/2013 2:07 PM PDT) + + + + + + | Component | Value | Ref Range | Performed | Pathologist | | | | | At | Signature | + + + + + + | TOTAL | 12.2 (L) | 13.5 - 17.5 | [facility] - | | | HEMOGLOBIN, | | g/dL | [facility] | | | POC | | | [facility] | | | | | | OF CARE | | | | | | TESTS | | + + + + + + | HEMATOCRIT, | 37.5 (L) | 41.0 - 53.0 % | [facility] | | | POC | | | [facility] | | | | | | [facility] | | | | | | OF CARE | | | | | | TESTS | | + + + + + + + + | Specimen | + + | | + + + + + + + | Performing | Address | City/State/Zipcode | Phone Number | | Organization | | | | + + + + + | [facility] | [address] | [place], [place] | | | [facility] | [address] | [address] | | | TESTS | | | | + + + + + ARTERIAL BLOOD GAS, POC (09/04/2013 2:07 PM PDT) + + + + + + | Component | Value | Ref Range | Performed | Pathologist | | | | | At | Signature | + + + + + + | PH | 7.31 (L) | 7.37 - 7.44 | [facility] | | | ARTERIAL, | | | [facility] | | | POC | | | [facility] | | | | | | OF CARE | | | | | | TESTS | | + + + + + + | PO2 | 214 (H) | 72 - 104 mmHg | [facility] | | | ARTERIAL, | | | [facility] | | | POC | | | [facility] | | | | | | OF CARE | | | | | | TESTS | | + + + + + + | PCO2 | 36 | 32 - 43 mmHg | [facility] | | | ARTERIAL, | | | [facility] | | | POC | | | [facility] | | | | | | OF CARE | | | | | | TESTS | | + + + + + + | O2 SAT | 99.8 (H) | 92.0 - 98.0 % | [facility] - | | | ARTERIAL, | | | [facility] | | | POC | | | [facility] | | | | | | OF CARE | | | | | | TESTS | | + + + + + + | HCO3 | 18.2 (L) | 21 - 28 mmol/L | [facility] - | | | ARTERIAL, | | | [facility] | | | POC | | | [facility] | | | | | | OF CARE | | | | | | TESTS | | + + + + + + | BASE EXCESS | -8.0 | | [facility] - | | | ARTERIAL, | | | [facility] | | | POC | | | [facility] | | | | | | OF CARE | | | | | | TESTS | | + + + + + + + + | Specimen | + + | | + + + + + + + | Performing | Address | City/State/Zipcode | Phone Number | | Organization | | | | + + + + + | [facility] | [address] | [place], [place] | | | [facility] | [address] | [address] | | | TESTS | | | | + + + + + CAPILLARY BLOOD GLUCOSE (NO CHG), POC (09/04/2013 8:24 AM PDT) + +---------+ + + + | Component | Value | Ref Range | Performed | Pathologist | | | | | At | Signature | + +---------+ + + + | BLOOD | 108 (H) | 60 - 99 mg/dL | [facility] - | | | GLUCOSE, | | [...] + + + + | [facility] | [address] | [place], [place] | | | [facility] | [facility] | [address] | | | TESTS | | | | + + + + + CBC (HEMOGRAM) ONLY (09/04/2013 2:02 AM PDT) + + + + + + | Component | Value | Ref Range | Performed | Pathologist | | | | | At | Signature | + + + + + + | WHITE CELL | 10.13 | 4.40 - 11.00 | [facility] | | | COUNT | | K/cu mm | LABORATORY | | | | | | SERVICES, | | | | | | CORE | | + + + + + + | RED CELL | 3.76 (L) | 4.50 - 6.00 | [facility] | | | COUNT | | M/cu mm | LABORATORY | | | | | | SERVICES, | | | | | | CORE | | + + + + + + | HEMOGLOBIN | 11.4 (L) | 13.5 - 17.5 | [facility] | | | | | g/dL | LABORATORY | | | | | | SERVICES, | | | | | | CORE | | + + + + + + | HEMATOCRIT | 33.8 (L) | 41.0 - 53.0 % | [facility] | | | | | | LABORATORY | | | | | | SERVICES, | | | | | | CORE | | + + + + + + | MCV | 89.9 | 80.0 - 96.0 fL | [facility] | | | | | | LABORATORY | | | | | | SERVICES, | | | | | | CORE | | + + + + + + | MCHC | 33.7 | 33.0 - 35.5 | [facility] | | | | | g/dL | LABORATORY | | | | | | SERVICES, | | | | | | CORE | | + + + + + + | RDW SD | 44.8 | 35.1 - 46.3 fL | [facility] | | | | | | LABORATORY | | | | | | SERVICES, | | | | | | CORE | | + + + + + + | PLATELET | 214Comment: | 150 - 400 K/cu | [facility] | | | COUNT | Macroplatelets present. | mm | LABORATORY | | | [...] + + | Blood - Blood | + + + + + + + | Performing | Address | City/State/Zipcode | Phone Number | | Organization | | | | + + + + + | [facility] | [address] | [place] [address] | | | SERVICES, CORE | [address] | | | + + + + + MAGNESIUM, PLASMA (09/04/2013 2:02 AM PDT) + +-------+ + + + | Component | Value | Ref Range | Performed | Pathologist | | | | | At | Signature | + +-------+ + + + | MAGNESIUM,P | 1.8 | 1.8 - 2.5 mg/dL | [facility] | | | LASMA | | | LABORATORY | | | | | | SERVICES, | | | | | | CORE | | + +-------+ + + + + + | Specimen | + + | Blood - Blood | + + + + + + + | Performing | Address | City/State/Zipcode | Phone Number | | Organization | | | | + + + + + | [facility] | [address] | [place] [address] | | | SERVICES, CORE | [address] | | | + + + + + RENAL FUNCTION SET (NA,K,CL,CO2,BUN,CREAT,GLUC,CA,PHOS,ALB ) (09/04/2013 2:02 AM PDT) + +---------+ + + + | Component | Value | Ref Range | Performed | Pathologist | | | | | At | Signature | + +---------+ + + + | GLUCOSE, | 100 (H) | 60 - 99 mg/dL | [facility] | | | PLASMA | | | LABORATORY | | | (LAB) | | | SERVICES, | | | | | | CORE | | + +---------+ + + + | BUN, PLASMA | 15 | 6 - 20 mg/dL | [facility] | | | (LAB) | | | LABORATORY | | | | | | SERVICES, | | | | | | CORE | | + +---------+ + + + | CREATININE | 0.77 | 0.70 - 1.30 | [facility] | | | PLASMA | | mg/dL | LABORATORY | | | (LAB) | | | SERVICES, | | | | | | CORE | | + +---------+ + + + | EGFR | >60 | >60 mL/min | [facility] | | | - | | | LABORATORY | | | NAURUAN | | | SERVICES, | | | | | | CORE | | + +---------+ + + + | EGFR NON | >60 | >60 mL/min | [facility] | | | -DEIDRE | | | LABORATORY | | | RICAN | | | SERVICES, | | | | | | CORE | | + +---------+ + + + | SODIUM, | 132 (L) | 136 - 145 | [facility] | | | PLASMA | | mmol/L | LABORATORY | | | (LAB) | | | SERVICES, | | | | | | CORE | | + +---------+ + + + | POTASSIUM, | 3.9 | 3.4 - 5.0 | [facility] | | | PLASMA | | mmol/L | LABORATORY | | | (LAB) | | | SERVICES, | | | | | | CORE | | + +---------+ + + + | CHLORIDE, | 104 | 97 - 108 mmol/L | [facility] | | | PLASMA | | | LABORATORY | | | (LAB) | | | SERVICES, | | | | | | CORE | | + +---------+ + + + | TOTAL CO2, | 18 (L) | 21 - 32 mmol/L | [facility] | | | PLASMA | | | LABORATORY | | | (LAB) | | | SERVICES, | | | | | | CORE | | + +---------+ + + + | CALCIUM, | 7.9 (L) | 8.6 - 10.2 | [facility] | | | PLASMA | | mg/dL | LABORATORY | | | (LAB) | | | SERVICES, | | | | | | CORE | | + +---------+ + + + | ALBUMIN, | 3.2 (L) | 3.5 - 4.7 g/dL | [facility] | | | PLASMA | | | LABORATORY | | | (LAB) | | | SERVICES, | | | | | | CORE | | + +---------+ + + + | PHOSPHORUS, | 2.6 | 2.4 - 4.7 mg/dL | [facility] [...] + + + | ANION GAP | 10 | mmol/L | [facility] | | | | | | LABORATORY | | | | | | SERVICES, | | | | | | CORE | | + +---------+ + + + | ANION | 12 (H) | 4 - 11 mmol/L | [facility] | | | GAP(ALB | | | LABORATORY | | | CORRECTED) | | | SERVICES, | | | | | | CORE | | + +---------+ + + + + + | Specimen | + + | Blood - Blood | + + + + + | Narrative | Performed At | + + + | GFR is estimated using the MDRD equation recommended by the | [facility] | | National Kidney Disease Education Program. Estimated GFR | LABORATORY | | Interpretive Information: <60 mL/min/1.73 sq m | SERVICES, CORE | | Chronic Kidney Disease <15 mL/min/1.73 sq m | | | Kidney Failure Estimated GFR greater that 60 mL/min/1.73 sq m is of | | | limited clinical value. The MDRD equation is not valid in the | | | following situations: - Patients under 18 years of age - Severe | | | malnutrition or obesity - Vegetarian diet - Rapidly changing kidney | | | function | | + + + + + + + + | Performing | Address | City/State/Zipcode | Phone Number | | Organization | | | | + + + + + | [facility] | [address] | [place] [address] | | | SERVICES, CORE | [address] | | | + + + + + SURGICAL PATHOLOGY (09/04/2013) + + + + + + | Component | Value | Ref Range | Performed | Pathologist | | | | | At | Signature | + + + + + + | SURGICAL | SOURCE OF SPECIMEN:A | | [facility] | | | PATHOLOGY | Ascending aorta | | DEPARTMENT | | | | Final Pathologic | | OF | | | | Diagnosis:Ascending | | PATHOLOGY | | | | aorta, excision: - | | | | | | 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 Gross | | | | | | Description:Received is | | | | | | 1 specimen fresh in a | | | | | | container labeled with | | | | | | the patient | | | | | | name(initials WS) and | | | | | | "ascending aorta." | | | | | | Received is a 7.4-cm | | | | | | in diameter x3.5-cm in | | | | | | length segment of | | | | | | rubbery, yellow-pink | | | | | | vessel, consistent | | | | | | withaorta. Also in the | | | | | | container is an 11.7 x | | | | | | 3.6 x 0.4-cm, rubbery, | | | | | | pink,similar appearing | | | | | | irregular fragment. | | | | | | Both intimal surfaces | | | | | | are pale tanto | | | | | | predominantly yellow | | | | | | with plaque. The | | | | | | adventitia is pink and | | | | | | focallyfibrous. | | | | | | Repair Specialist | | | | | | sections are submitted. | | | | | | Cassette | | | | | | Index:[id number] | | | | | | electronic signature | | | | | | indicates that I have | | | | | | personally reviewed | | | | | | alldiagnostic slides, | | | | | | the gross and/or | | | | | | microscopic portion of | | | | | | thisreport and | | | | | | formulated the final | | | | | | diagnosis. | | | | | | Rendering Diagnostician: | | | | | | Marta Loza | | | | | | MLovelyPathologistElectroni | | | | | | eli Signed 09/08/2013 | | | | | | 1:52PM | | | | + + + + + + + + | Specimen | + + | | + + + + + + + | Performing | Address | City/State/Zipcode | Phone Number | | Organization | | | | + + + + + | [facility] | [address] | [place] [address] | | | PATHOLOGY | [address] | | | + + + + + CAPILLARY BLOOD GLUCOSE (NO CHG), POC (09/03/2013 9:35 PM PDT) + +---------+ + + + | Component | Value | Ref Range | Performed | Pathologist | | | | | At | Signature | + +---------+ + + + | BLOOD | 122 (H) | 60 - 99 mg/dL | [facility] - | | | GLUCOSE, | | [...] + + + + + | [facility] | [address] | [place], [place] | | | [facility] | [facility] | [address] | | | TESTS | | | | + + + + + CAPILLARY BLOOD GLUCOSE (NO CHG), POC (09/03/2013 4:08 PM PDT) + +---------+ + + + | Component | Value | Ref Range | Performed | Pathologist | | | | | At | Signature | + +---------+ + + + | BLOOD | 112 (H) | 60 - 99 mg/dL | [facility] - | [...] + + + + | [facility] | [address] | [place], [place] | | | [facility] | [address] | [address] | | | TESTS | | | | + + + + + PRODUCT - PLATELET PHERESIS LEUKOREDUCED (09/03/2013 3:25 PM PDT) + + + + + + | Component | Value | Ref Range | Performed | Pathologist | | | | | At | Signature | + + + + + + | PRODUCT | PLATELETS PHERESIS | | [facility] | | | DESCRIPTION | LEUKOCYTE REDUCED | | DEPARTMENT | | | | | | OF | | | | | | PATHOLOGY | | + + + + + + | PRODUCT | [id number] | | [facility] | | | UNIT # | | | DEPARTMENT | | | | | | OF | | | | | | PATHOLOGY | | + + + + + + | UNIT ABO | O | | [facility] | | | | | | DEPARTMENT | | | | | | OF | | | | | | PATHOLOGY | | + + + + + + | UNIT RH | POS | | [facility] | | | | | | DEPARTMENT | | | | | | OF | | | | | | PATHOLOGY | | + + + + + + | STATUS OF | Returned to Blood Bank | | [facility] | | | UNIT | | | DEPARTMENT | | | | | | OF | | | | | | PATHOLOGY | | + + + + + + | BLOOD | [id number] | | [facility] | | | PRODUCT | | | DEPARTMENT | | | CODE | | | OF | | | | | | PATHOLOGY | | + + + + + + + + | Specimen | + + | | + + + + + + + | Performing | Address | City/State/Zipcode | Phone Number | | Organization | | | | + + + + + | [facility] DE[facility] | [address] | [place] [address] | | | PATHOLOGY | [address] | | | + + + + + PRODUCT - FRESH FROZEN PLASMA (09/03/2013 3:25 PM PDT) + + + + + + | Component | Value | Ref Range | Performed | Pathologist | | | | | At | Signature | + + + + + + | PRODUCT | PLASMA THAWED | | [facility] | | | DESCRIPTION | | | DEPARTMENT | | | | | | OF | | | | | | PATHOLOGY | | + + + + + + | PRODUCT | [id number] | | [facility] | | | UNIT # | | | DEPARTMENT | | | | | | OF | | | | | | PATHOLOGY | | + + + + + + | UNIT ABO | AB | | [facility] | | | | | | DEPARTMENT | | | | | | OF | | | | | | PATHOLOGY | | + + + + + + | UNIT RH | POS | | [facility] | | | | | | DEPARTMENT | | | | | | OF | | | | | | PATHOLOGY | | + + + + + + | STATUS OF | Returned to Blood Bank | | [facility] | | | UNIT | | | DEPARTMENT | | | | | | OF | | | | | | PATHOLOGY | | + + + + + + | BLOOD | [id number] | | [facility] | | | PRODUCT | | | DEPARTMENT | | | CODE | | | OF | | | | | | PATHOLOGY | | + + + + + + + + | Specimen | + + | | + + + + + + + | Performing | Address | City/State/Zipcode | Phone Number | | Organization | | | | + + + + + | [facility] DE[facility]MENT [facility] | [address] | [place] [address] | | | PATHOLOGY | [address] | | | + + + + + PRODUCT - FRESH FROZEN PLASMA (09/03/2013 3:25 PM PDT) + + + + + + | Component | Value | Ref Range | Performed | Pathologist | | | | | At | Signature | + + + + + + | PRODUCT | PLASMA THAWED | | [facility] | | | DESCRIPTION | | | DEPARTMENT | | | | | | OF | | | | | | PATHOLOGY | | + + + + + + | PRODUCT | [id number] | | [facility] | | | UNIT # | | | DEPARTMENT | | | | | | OF | | | | | | PATHOLOGY | | + + + + + + | UNIT ABO | O | | [facility] | | | | | | DEPARTMENT | | | | | | OF | | | | | | PATHOLOGY | | + + + + + + | UNIT RH | POS | | [facility] | | | | | | DEPARTMENT | | | | | | OF | | | | | | PATHOLOGY | | + + + + + + | STATUS OF | Returned to Blood Bank | | [facility] | | | UNIT | | | DEPARTMENT | | | | | | OF | | | | | | PATHOLOGY | | + + + + + + | BLOOD | [id number] | | [facility] | | | PRODUCT | | | DEPARTMENT | | | CODE | | | OF | | | | | | PATHOLOGY | | + + + + + + + + | Specimen | + + | | + + + + + + + | Performing | Address | City/State/Zipcode | Phone Number | | Organization | | | | + + + + + | [facility] | [address] | [place] [address] | | | PATHOLOGY | [address] | | | + + + + + PRODUCT - PLATELET PHERESIS LEUKOREDUCED (09/03/2013 3:25 PM PDT) + + + + + + | Component | Value | Ref Range | Performed | Pathologist | | | | | At | Signature | + + + + + + | PRODUCT | PLATELETS PHERESIS | | [facility] | | | DESCRIPTION | LEUKOCYTE REDUCED | | DEPARTMENT | | | | | | OF | | | | | | PATHOLOGY | | + + + + + + | PRODUCT | [id number] | | [facility] | | | UNIT # | | | DEPARTMENT | | | | | | OF | | | | | | PATHOLOGY | | + + + + + + | UNIT ABO | O | | [facility] | | | | | | DEPARTMENT | | | | | | OF | | | | | | PATHOLOGY | | + + + + + + | UNIT RH | POS | | [facility] | | | | | | DEPARTMENT | | | | | | OF | | | | | | PATHOLOGY | | + + + + + + | STATUS OF | Returned to Blood Bank | | [facility] | | | UNIT | | | DEPARTMENT | | | | | | OF | | | | | | PATHOLOGY | | + + + + + + | BLOOD | [id number] | | [facility] | | | PRODUCT | | | DEPARTMENT | | | CODE | | | OF | | | | | | PATHOLOGY | | + + + + + + + + | Specimen | + + | | + + + + + + + | Performing | Address | City/State/Zipcode | Phone Number | | Organization | | | | + + + + + | [facility] | [address] | [place] [address] | | | PATHOLOGY | [address] | | | + + + + + CAPILLARY BLOOD GLUCOSE (NO CHG), POC (09/03/2013 12:37 PM PDT) + +---------+ + + + | Component | Value | Ref Range | Performed | Pathologist | | | | | At | Signature | + +---------+ + + + | BLOOD | 110 (H) | 60 - 99 mg/dL | [facility] - | [...] | + + + + + | [facility] | [address] | [place], [place] | | | [facility] | [facility] | [address] | | | TESTS | | | | + + + + + LISA GORDON ONLY (09/03/2013 11:31 AM PDT) + + + + + + | Component | Value | Ref Range | Performed | Pathologist | | | | | At | Signature | + + + + + + | COLOR(UR) | Straw | | [facility] | | | | | | LABORATORY | | | | | | SERVICES, | | | | | | CORE | | + + + + + + | APPEARANCE | Clear | | [facility] | | | | | | LABORATORY | | | | | | SERVICES, | | | | | | CORE | | + + + + + + | GLUCOSE(UR) | Negative | Negative, 50.0 | [facility] | | | | | mg/dL | LABORATORY | | | | | | SERVICES, | | | | | | CORE | | + + + + + + | PROTEIN(LAB | Negative | Negative, 30.0 | [facility] | | | ) | | mg/dL | LABORATORY | | | | | | SERVICES, | | | | | | CORE | | + + + + + + | BILIRUBIN | Negative | Negative | [facility] | | | | | | LABORATORY | | | | | | SERVICES, | | | | | | CORE | | + + + + + + | UROBILINOGE | <2.0 | <2.0 mg/dL | [facility] | | | N | | | LABORATORY | | | | | | SERVICES, | | | | | | CORE | | + + + + + + | PH(UR) | 6.0 | 5.0 - 8.0 | [facility] | | | | | | LABORATORY | | | | | | SERVICES, | | | | | | CORE | | + + + + + + | BLOOD | Moderate (A) | Negative | [facility] | | | | | | LABORATORY | | | | | | SERVICES, | | | | | | CORE | | + + + + + + | KETONES | Negative | Negative mg/dL | [facility] | | | | | | LABORATORY | | | | | | SERVICES, | | | | | | CORE | | + + + + + + | NITRITES | Negative | Negative | [facility] | | | | | | LABORATORY | | | | | | SERVICES, | | | | | | CORE | | + + + + + + | LEUKOCYTE | Negative | Negative | [facility] | | | ESTERASE | | | LABORATORY | | | | | | SERVICES, | | | | | | CORE | | + + + + + + | SPECIFIC | <1.005 (L) | 1.005 - 1.030 | [facility] | | | GRAVITY | | | LABORATORY | | | | | | SERVICES, | | | | | | CORE | | + + + + + + + + | Specimen | + + | Urine - Urine | + + + + + + + | Performing | Address | City/State/Zipcode | Phone Number | | Organization | | | | + + + + + | [facility] | [address] | [place] [address] | | | SERVICES, CORE | [address] | | | + + + + + URINE, MICROSCOPIC EXAM (09/03/2013 11:31 AM PDT) + +-------+ + + + | Component | Value | Ref Range | Performed | Pathologist | | | | | At | Signature | + +-------+ + + + | RED CELLS | 4 (H) | 0 - 3 /hpf | [facility] | | | | | | LABORATORY | | | | | | SERVICES, | | | | | | CORE | | + +-------+ + + + | WHITE CELLS | <1 | 0 - 5 /hpf | [facility] | | | | | | LABORATORY | | | | | | SERVICES, | | | | | | CORE | | + +-------+ + + + | BACTERIA | None | None /hpf | [facility] | | | | | | LABORATORY | | | | | | SERVICES, | | | | | | CORE | | + +-------+ + + + | YEAST (LAB) | None | None /hpf | [facility] | | | | | | LABORATORY | | | | | | SERVICES, | | | | | | CORE | | + +-------+ + + + | SQUAMOUS | None | None /hpf | [facility] | | | EPITHELIAL | | | LABORATORY | | | | | | SERVICES, | | | | | | CORE | | + +-------+ + + + | MUCOUS | None | None /hpf | [facility] | | | | | | LABORATORY | | | | | | SERVICES, | | | | | | CORE | | + +-------+ + + + | TRICHOMONAS | None | None /hpf | [facility] | | | | | | LABORATORY | | | | | | SERVICES, | | | | | | CORE | | + +-------+ + + + | NON-SQUAMOU | None | None /hpf | [facility] | | | S EPITH | | | LABORATORY | | | | | | SERVICES, | | | | | | CORE | | + +-------+ + + + | HYALINE | 0 | 0 - 2 /lpf | [facility] | | | CASTS | | | LABORATORY | | | | | | SERVICES, | | | | | | CORE | | + +-------+ + + + | GRANULAR | 0 | 0 - 2 /lpf | [facility] | | | CASTS | | | LABORATORY | | | | | | SERVICES, | | | | | | CORE | | + +-------+ + + + | CELLULAR | 0 | <=0 /lpf | [facility] | | | CASTS | | | LABORATORY | | | | | | SERVICES, | | | | | | CORE | | + +-------+ + + + | TRIPLE P04 | None | None /hpf | [facility] | | | CRYSTALS | | | LABORATORY | | | | | | SERVICES, | | | | | | CORE | | + +-------+ + + + | CALCIUM | None | None /hpf | [facility] | | | OXALATE | | | LABORATORY | | | LEONCIO | | | SERVICES, | | | | | | CORE | | + +-------+ + + + | URIC ACID | None | None /hpf | [facility] | | | [facility] | | | LABORATORY | | | | | | SERVICES, | | | | | | CORE | | + +-------+ + + + | AMORPHOUS | None | None /hpf | [facility] | | | [facility] | | | LABORATORY | | | | | | SERVICES, | | | | | | CORE | | + +-------+ + + + + + | Specimen | + + | Urine - Urine | + + + + + + + | Performing | Address | City/State/Zipcode | Phone Number | | Organization | | | | + + + + + | [facility] | [address] | [place] [address] | | | SERVICES, CORE | [address] | | | + + + + + URINE SCREEN FOR CULTURE (09/03/2013 11:31 AM PDT) + + + + + + | Component | Value | Ref Range | Performed | Pathologist | | | | | At | Signature | + + + + + + | URINE | Negative | Negative | [facility] | | | SCREEN FOR | | | LABORATORY | | | CULTURE | | | SERVICES, | | | | | | CORE | | + + + + + + + + | Specimen | + + | Urine - Urine | + + + + + | Narrative | Performed At | + + + | Culture Screen Negative. Culture not indicated. | [facility] | | | LABORATORY | | | [facility] | + + + + + + + + | Performing | Address | City/State/Zipcode | Phone Number | | Organization | | | | + + + + + | [facility] | [address] | [place] [address] | | | SERVICES, RUDY | [address] | | | + + + + + CAPILLARY BLOOD GLUCOSE (NO CHG), POC (09/03/2013 8:42 AM PDT) + +---------+ + + + | Component | Value | Ref Range | Performed | Pathologist | | | | | At | Signature | + +---------+ + + + | BLOOD | 132 (H) | 60 - 99 mg/dL | [facility] | [...] + + + + | [facility] | [address] | [place], [place] | | | DOM POINT OF CARE | [address] | [address] | | | TESTS | | | | + + + + + CBC (HEMOGRAM) ONLY (09/03/2013 12:06 AM PDT) + + + + + + | Component | Value | Ref Range | Performed | Pathologist | | | | | At | Signature | + + + + + + | WHITE CELL | 15.46 (H) | 4.40 - 11.00 | [facility] | | | COUNT | | K/cu mm | LABORATORY | | | | | | SERVICES, | | | | | | CORE | | + + + + + + | RED CELL | 4.43 (L) | 4.50 - 6.00 | [facility] [...] + + + + | HEMATOCRIT | 39.5 (L) | 41.0 - 53.0 % | [facility] | | | | | | LABORATORY | | | | | | SERVICES, | | | | | | CORE | | + + + + + + | MCV | 89.2 | 80.0 - 96.0 fL | [facility] | | | | | | LABORATORY | | | | | | SERVICES, | | | | | | CORE | | + + + + + + | MCHC | 33.4 | 33.0 - 35.5 | [facility] | | | | | g/dL | LABORATORY | | | | | | SERVICES, | | | | | | CORE | | + + + + + + | RDW SD | 45.1 | 35.1 - 46.3 fL | [facility] | | | | | | LABORATORY | | | | | | SERVICES, | | | | | | CORE | | + + + + + + | PLATELET | 280 | 150 - 400 K/cu | [facility] | | | COUNT | | mm | LABORATORY | | | | | | SERVICES, | | | | | | CORE | | + + + + + + | MPV | 9.9 | 9.7 - 12.3 fL | [facility] [...] + + | Blood - Blood | + + + + + + + | Performing | Address | City/State/Zipcode | Phone Number | | Organization | | | | + + + + + | [facility] | [address] | [place] [address] | | | SERVICES, CORE | [address] | | | + + + + + MAGNESIUM, PLASMA (09/03/2013 12:06 AM PDT) + +---------+ + + + | Component | Value | Ref Range | Performed | Pathologist | | | | | At | Signature | + +---------+ + + + | MAGNESIUM,P | 1.7 (L) | 1.8 - 2.5 mg/dL | [facility] | | | LASMA | | | LABORATORY | | | | | | SERVICES, | | | | | | CORE | | + +---------+ + + + + + | Specimen | + + | Blood - Blood | + + + + + + + | Performing | Address | City/State/Zipcode | Phone Number | | Organization | | | | + + + + + | [facility] | [address] | [place] [address] | | | SERVICES, CORE | [address] | | | + + + + + RENAL FUNCTION SET (NA,K,CL,CO2,BUN,CREAT,GLUC,CA,PHOS,ALB ) (09/03/2013 12:06 AM PDT) + +---------+ + + + | Component | Value | Ref Range | Performed | Pathologist | | | | | At | Signature | + +---------+ + + + | GLUCOSE, | 160 (H) | 60 - 99 mg/dL | [facility] | | | PLASMA | | | LABORATORY | | | (LAB) | | | SERVICES, | | | | | | CORE | | + +---------+ + + + | BUN, PLASMA | 18 | 6 - 20 mg/dL | [facility] [...] | | | LABORATORY | | | [facility] | | | SERVICES, | | | | | | CORE | | + +---------+ + + + | EGFR NON | >60 | >60 mL/min | [facility] | | | -[facility] | | | LABORATORY | | | RICAN | | | SERVICES, | | | | | | CORE | | + +---------+ + + + | SODIUM, | 131 (L) | 136 - 145 | [facility] | | | PLASMA | | mmol/L | LABORATORY | | | (LAB) | | | SERVICES, | | | | | | CORE | | + +---------+ + + + | POTASSIUM, | 3.6 | 3.4 - 5.0 | [facility] | | | PLASMA | | mmol/L | LABORATORY | | | (LAB) | | | SERVICES, | | | | | | CORE | | + +---------+ + + + | CHLORIDE, | 102 | 97 - 108 mmol/L | [facility] | | | PLASMA | | | LABORATORY | | | (LAB) | | | SERVICES, | | | | | | CORE | | + +---------+ + + + | TOTAL CO2, | 20 (L) | 21 - 32 mmol/L | [facility] | | | PLASMA | | | LABORATORY | | | (LAB) | | | SERVICES, | | | | | | CORE | | + +---------+ + + + | CALCIUM, | 8.2 (L) | 8.6 - 10.2 | [facility] | | | PLASMA | | mg/dL | LABORATORY | | | (LAB) | | | SERVICES, | | | | | | CORE | | + +---------+ + + + | ALBUMIN, | 3.6 | 3.5 - 4.7 g/dL | [facility] | | | PLASMA | | | LABORATORY | | | (LAB) | | | SERVICES, | | | | | | CORE | | + +---------+ + + + | PHOSPHORUS, | 2.8 | 2.4 - 4.7 mg/dL | [facility] [...] + + + | ANION GAP | 9 | mmol/L | [facility] | | | | | | LABORATORY | | | | | | SERVICES, | | | | | | CORE | | + +---------+ + + + | ANION | 10 | 4 - 11 mmol/L | [facility] | | | GAP(ALB | | | LABORATORY | | | CORRECTED) | | | SERVICES, | | | | | | CORE | | + +---------+ + + + + + | Specimen | + + | Blood - Blood | + + + + + | Narrative | Performed At | + + + | GFR is estimated using the MDRD equation recommended by the | [facility] | | National Kidney Disease Education Program. Estimated GFR | LABORATORY | | Interpretive Information: <60 mL/min/1.73 sq m | [facility], CORE | | Chronic Kidney Disease <15 mL/min/1.73 sq m | | | Kidney Failure Estimated GFR greater that 60 mL/min/1.73 sq m is of | | | limited clinical value. The MDRD equation is not valid in the | | | following situations: - Patients under 18 years of age - Severe | | | malnutrition or obesity - Vegetarian diet - Rapidly changing kidney | | | function | | + + + + + + + + | Performing | Address | City/State/Zipcode | Phone Number | | Organization | | | | + + + + + | [facility] | [address] | [place] [address] | | | RUDY FELDER | [address] | | | + + + + + CAPILLARY BLOOD GLUCOSE (NO CHG), POC (09/02/2013 6:06 AM PDT) + +---------+ + + + | Component | Value | Ref Range | Performed | Pathologist | | | | | At | Signature | + +---------+ + + + | BLOOD | 116 (H) | 60 - 99 mg/dL | [facility] - | [...] + + + + | [facility] | [address] | [place], [place] | | | ED[facility]UNDO FERNANDES OF CARE | [address] | [address] | | | TESTS | | | | + + + + + CAPILLARY BLOOD GLUCOSE (NO CHG), POC (09/02/2013 2:59 AM PDT) + +---------+ + + + | Component | Value | Ref Range | Performed | Pathologist | | | | | At | Signature | + +---------+ + + + | BLOOD | 117 (H) | 60 - 99 mg/dL | [facility] - | | | GLUCOSE, | | [...] + + + + + | [facility] | [address] | [place], [place] | | | DOM POINT OF CARE | [address] | [address] | | | TESTS | | | | + + + + + CBC (HEMOGRAM) ONLY (09/02/2013 2:55 AM PDT) + + + + + + | Component | Value | Ref Range | Performed | Pathologist | | | | | At | Signature | + + + + + + | WHITE CELL | 11.69 (H) | 4.40 - 11.00 | [facility] | | | COUNT | | K/cu mm | LABORATORY | | | | | | SERVICES, | | | | | | CORE | | + + + + + + | RED CELL | 4.41 (L) | 4.50 - 6.00 | [facility] [...] + + + + | HEMATOCRIT | 39.1 (L) | 41.0 - 53.0 % | [facility] | | | | | | LABORATORY | | | | | | SERVICES, | | | | | | CORE | | + + + + + + | MCV | 88.7 | 80.0 - 96.0 fL | [facility] | | | | | | LABORATORY | | | | | | SERVICES, | | | | | | CORE | | + + + + + + | MCHC | 33.8 | 33.0 - 35.5 | [facility] | | | | | g/dL | LABORATORY | | | | | | SERVICES, | | | | | | CORE | | + + + + + + | RDW SD | 44.9 | 35.1 - 46.3 fL | [facility] | | | | | | LABORATORY | | | | | | SERVICES, | | | | | | CORE | | + + + + + + | PLATELET | 286 | 150 - 400 K/cu | [facility] | | | COUNT | | mm | LABORATORY | | | | | | SERVICES, | | | | | | CORE | | + + + + + + | MPV | 9.7 | 9.7 - 12.3 fL | [facility] [...] + + | Blood - Blood | + + + + + + + | Performing | Address | City/State/Zipcode | Phone Number | | Organization | | | | + + + + + | [facility] | [address] | [place] [address] | | | BRADFORD, RUDY | [address] | | | + + + + + MAGNESIUM, PLASMA (09/02/2013 2:55 AM PDT) + +-------+ + + + | Component | Value | Ref Range | Performed | Pathologist | | | | | At | Signature | + +-------+ + + + | MAGNESIUM,P | 2.4 | 1.8 - 2.5 mg/dL | [facility] | | | NEAL | | | LABORATORY | | | | | | [place], | | | | | | CORE | | + +-------+ + + + + + | Specimen | + + | Blood - Blood | + + + + + + + | Performing | Address | City/State/Zipcode | Phone Number | | Organization | | | | + + + + + | [facility] | [address] | [place] [address] | | | SERVICES, CORE | [address] | | | + + + + + RENAL FUNCTION SET (NA,K,CL,CO2,BUN,CREAT,GLUC,CA,PHOS,ALB ) (09/02/2013 2:55 AM PDT) + +---------+ + + + | Component | Value | Ref Range | Performed | Pathologist | | | | | At | Signature | + +---------+ + + + | GLUCOSE, | 112 (H) | 60 - 99 mg/dL | [facility] | | | PLASMA | | | LABORATORY | | | (LAB) | | | SERVICES, | | | | | | CORE | | + +---------+ + + + | BUN, PLASMA | 19 | 6 - 20 mg/dL | [facility] | | | (LAB) | | | LABORATORY | | | | | | SERVICES, | | | | | | CORE | | + +---------+ + + + | CREATININE | 0.90 | 0.70 - 1.30 | [facility] | | | PLASMA | | mg/dL | LABORATORY | | | (LAB) | | | SERVICES, | | | | | | CORE | | + +---------+ + + + | EGFR | >60 | >60 mL/min | [facility] | | | - | | | LABORATORY | | | NAURUAN | | | SERVICES, | | | | | | CORE | | + +---------+ + + + | EGFR NON | >60 | >60 mL/min | [facility] | | | -DE[facility]RE | | | LABORATORY | | | RICAN | | | SERVICES, | | | | | | CORE | | + +---------+ + + + | SODIUM, | 135 (L) | 136 - 145 | [facility] | | | PLASMA | | mmol/L | LABORATORY | | | (LAB) | | | SERVICES, | | | | | | CORE | | + +---------+ + + + | POTASSIUM, | 3.6 | 3.4 - 5.0 | [facility] | | | PLASMA | | mmol/L | LABORATORY | | | (LAB) | | | SERVICES, | | | | | | CORE | | + +---------+ + + + | CHLORIDE, | 102 | 97 - 108 mmol/L | [facility] | | | PLASMA | | | LABORATORY | | | (LAB) | | | SERVICES, | | | | | | CORE | | + +---------+ + + + | TOTAL CO2, | 23 | 21 - 32 mmol/L | [facility] | | | PLASMA | | | LABORATORY | | | (LAB) | | | SERVICES, | | | | | | CORE | | + +---------+ + + + | CALCIUM, | 8.8 | 8.6 - 10.2 | [facility] | | | PLASMA | | mg/dL | LABORATORY | | | (LAB) | | | SERVICES, | | | | | | CORE | | + +---------+ + + + | ALBUMIN, | 3.7 | 3.5 - 4.7 g/dL | [facility] | | | PLASMA | | | LABORATORY | | | (LAB) | | | SERVICES, | | | | | | CORE | | + +---------+ + + + | PHOSPHORUS, | 3.8 | 2.4 - 4.7 mg/dL | [facility] [...] + + + | ANION GAP | 10 | mmol/L | [facility] | | | | | | LABORATORY | | | | | | SERVICES, | | | | | | CORE | | + +---------+ + + + | ANION | 10 | 4 - 11 mmol/L | [facility] | | | GAP(ALB | | | LABORATORY | | | CORRECTED) | | | SERVICES, | | | | | | CORE | | + +---------+ + + + + + | Specimen | + + | Blood - Blood | + + + + + | Narrative | Performed At | + + + | GFR is estimated using the MDRD equation recommended by the | [facility] | | National Kidney Disease Education Program. Estimated GFR | LABORATORY | | Interpretive Information: <60 mL/min/1.73 sq m | [facility]UDY FELDER | | Chronic Kidney Disease <15 mL/min/1.73 sq m | | | Kidney Failure Estimated GFR greater that 60 mL/min/1.73 sq m is of | | | limited clinical value. The MDRD equation is not valid in the | | | following situations: - Patients under 18 years of age - Severe | | | malnutrition or obesity - Vegetarian diet - Rapidly changing kidney | | | function | | + + + + + + + + | Performing | Address | City/State/Zipcode | Phone Number | | Organization | | | | + + + + + | [facility] | [address] | [place] [address] | | | RUDY FELDER | [address] | | | + + + + + TRANSTHORACIC ECHOCARDIOGRAM, ADULT (09/02/2013 12:00 AM PDT) + + + | Narrative | Performed At | + + + | | | | | | + + + + + | Procedure Note | + + | [facility] - 09/02/2013 11:30 AM PDT | + + X-RAY PORTABLE CHEST 1 VIEW (09/01/2013 10:43 PM PDT) + + + + + + | Component | Value | Ref Range | Performed | Pathologist | | | | | At | Signature | + + + + + + | X-RAY | STUDY: AL CHEST 1 VIEW | | | | | PORTABLE | 09/01/13 22:43:00 | | | | | CHEST 1 | HISTORY: Shortness of | | | | | VIEW | breath COMPARISON: | | | | | | Outside hospital | | | | | | CT-09/01/13 FINDINGS: | | | | | | There is no focal area | | | | | | of consolidation or | | | | | | pulmonary edema. There | | | | | | is nopneumothorax or | | | | | | pleural effusion. | | | | | | Marked widening of the | | | | | | mediastinal contoursis | | | | | | present with relatively | | | | | | maintained cardiac | | | | | | contours. IMPRESSION: | | | | | | Mediastinal findings | | | | | | consistent with an | | | | | | ascending aortic | | | | | | aneurysm withtortuosity | | | | | | of the thoracic aorta. | | | | | | Clear lungs. Attending | | | | | | Radiologists: KRUPA | | | | | | DARRELL HOPPERuthor: SAGAR | | | | | | MD BERNA I have | | | | | | personally viewed this | | | | | | procedure/exam, reviewed | | | | | | this report, and | | | | | | madechanges to it where | | | | | | appropriate. | | | | | | Final/Electronically | | | | | | charu / KRUPA | | | | | | PRIMACK 09/02/2013 9:39 | | | | | | AM | | | | + + + + + + + + | Specimen | + + | | + + + +---------+ + + | Performing | Address | City/State/Zipcode | Phone Number | | Organization | | | | + +---------+ + + | [facility] | | | | [facility] | | | | + +---------+ + + ANTIBODY SCREEN (09/01/2013 9:09 PM PDT) + + + + + + | Component | Value | Ref Range | Performed | Pathologist | | | | | At | Signature | + + + + + + | Antibody | Negative | | [facility] | | | Screen | | | LABORATORY | | | | | | SERVICES, | | | | | | TRANSFUSION | | | | | | MEDICINE | | + + + + + + + + | Specimen | + + | Blood - Blood | + + + + + + + | Performing | Address | City/State/Zipcode | Phone Number | | Organization | | | | + + + + + | [facility] | [address] | [place] [address] | | | SERVICES, | [address] | | | | TRANSFUSION MEDICINE | | | | + + + + + ABO & RH TYPE (09/01/2013 9:09 PM PDT) + + + + + + | Component | Value | Ref Range | Performed | Pathologist | | | | | At | Signature | + + + + + + | ABO Group | O | | [facility] | | | | | | LABORATORY | | | | | | SERVICES, | | | | | | TRANSFUSION | | | | | | MEDICINE | | + + + + + + | Rh Type | Positive | | [facility] | | | | | | LABORATORY | | | | | | SERVICES, | | | | | | TRANSFUSION | | | | | | MEDICINE | | + + + + + + + + | Specimen | + + | Blood - Blood | + + + + + + + | Performing | Address | City/State/Zipcode | Phone Number | | Organization | | | | + + + + + | [facility] | [address] | [place] [address] | | | SERVICES, | [address] | | | | TRANSFUSION MEDICINE | | | | + + + + + CBC (HEMOGRAM) ONLY (09/01/2013 9:08 PM PDT) + + + + + + | Component | Value | Ref Range | Performed | Pathologist | | | | | At | Signature | + + + + + + | WHITE CELL | 12.66 (H) | 4.40 - 11.00 | [facility] | | | COUNT | | K/cu mm | LABORATORY | | | | | | SERVICES, | | | | | | CORE | | + + + + + + | RED CELL | 4.67 | 4.50 - 6.00 | [facility] | | | COUNT | | M/cu mm | LABORATORY | | | | | | SERVICES, | | | | | | CORE | | + + + + + + | HEMOGLOBIN | 14.2 | 13.5 - 17.5 | [facility] | | | | | g/dL | LABORATORY | | | | | | SERVICES, | | | | | | CORE | | + + + + + + | HEMATOCRIT | 40.7 (L) | 41.0 - 53.0 % | [facility] | | | | | | LABORATORY | | | | | | SERVICES, | | | | | | CORE | | + + + + + + | MCV | 87.2 | 80.0 - 96.0 fL | [facility] | | | | | | LABORATORY | | | | | | SERVICES, | | | | | | CORE | | + + + + + + | MCHC | 34.9 | 33.0 - 35.5 | [facility] | | | | | g/dL | LABORATORY | | | | | | SERVICES, | | | | | | CORE | | + + + + + + | RDW SD | 43.4 | 35.1 - 46.3 fL | [facility] | | | | | | LABORATORY | | | | | | SERVICES, | | | | | | CORE | | + + + + + + | PLATELET | 279 | 150 - 400 K/cu | [facility] | | | COUNT | | mm | LABORATORY | | | | | | SERVICES, | | | | | | CORE | | + + + + + + | MPV | 10.1 | 9.7 - 12.3 fL | [facility] [...] + + | Blood - Blood | + + + + + + + | Performing | Address | City/State/Zipcode | Phone Number | | Organization | | | | + + + + + | [facility] | [address] | [place] [address] | | | SERVICES, CORE | [address] | | | + + + + + COAGULOPATHY PANEL (INR,APTT,FIBRINOGEN) (09/01/2013 9:08 PM PDT) + +---------+ + + + | Component | Value | Ref Range | Performed | Pathologist | | | | | At | Signature | + +---------+ + + + | INR | 1.03 | 0.90 - 1.20 INR | [facility] | | | | | | LABORATORY | | | | | | [place], | | | | | | RUDY | | + +---------+ + + + | APTT | 30.3 | 26.0 - 36.0 | [facility] | | | | | seconds | LABORATORY | | | | | | SERVICES, | | | | | | CORE | | + +---------+ + + + | FIBRINOGEN | 497 (H) | 200 - 450 mg/dL | [facility] | | | LEVEL | | | LABORATORY | | | | | | SERVICES, | | | | | | CORE | | + +---------+ + + + + + | Specimen | + + | Blood - Blood | + + + + + | Narrative | Performed At | + + + | INR Therapeutic ranges for full anticoagulation: INR for | [facility] | | Venous Thromboembolism (2.0 - 3.0) INR INR for | LABORATORY | | most patients with mech. valves (2.5 - 3.5) INR APTT | [facility] CORE | | Therapeutic Range: (75 - 120) sec | | | Heparin levels of 0.35 - 0.7 U/mL | | + + + + + + + + | Performing | Address | City/State/Zipcode | Phone Number | | Organization | | | | + + + + + | [facility] | [address] | [place] [address] | | | BRADFORD, RUDY | [address] | | | + + + + + MAGNESIUM, PLASMA (09/01/2013 9:08 PM PDT) + +-------+ + + + | Component | Value | Ref Range | Performed | Pathologist | | | | | At | Signature | + +-------+ + + + | MAGNESIUM,P | 1.8 | 1.8 - 2.5 mg/dL | [facility] | | | LASMA | | | LABORATORY | | | | | | SERVICES, | | | | | | CORE | | + +-------+ + + + + + | Specimen | + + | Blood - Blood | + + + + + + + | Performing | Address | City/State/Zipcode | Phone Number | | Organization | | | | + + + + + | [facility] | [address] | [place] [address] | | | SERVICES, CORE | [address] | | | + + + + + RENAL FUNCTION SET (NA,K,CL,CO2,BUN,CREAT,GLUC,CA,PHOS,ALB ) (09/01/2013 9:08 PM PDT) + +---------+ + + + | Component | Value | Ref Range | Performed | Pathologist | | | | | At | Signature | + +---------+ + + + | GLUCOSE, | 107 (H) | 60 - 99 mg/dL | [facility] | | | PLASMA | | | LABORATORY | | | (LAB) | | | SERVICES, | | | | | | CORE | | + +---------+ + + + | BUN, PLASMA | 18 | 6 - 20 mg/dL | [facility] | | | (LAB) | | | LABORATORY | | | | | | SERVICES, | | | | | | CORE | | + +---------+ + + + | CREATININE | 0.81 | 0.70 - 1.30 | [facility] | | | PLASMA | | mg/dL | LABORATORY | | | (LAB) | | | SERVICES, | | | | | | CORE | | + +---------+ + + + | EGFR | >60 | >60 mL/min | [facility] | | | - | | | LABORATORY | | | [facility]URUAN | | | SERVICES, | | | | | | CORE | | + +---------+ + + + | EGFR NON | >60 | >60 mL/min | [facility] | | | -[facility]RE | | | LABORATORY | | | RICAN | | | SERVICES, | | | | | | CORE | | + +---------+ + + + | SODIUM, | 134 (L) | 136 - 145 | [facility] | | | PLASMA | | mmol/L | LABORATORY | | | (LAB) | | | SERVICES, | | | | | | CORE | | + +---------+ + + + | POTASSIUM, | 3.3 (L) | 3.4 - 5.0 | [facility] | | | PLASMA | | mmol/L | LABORATORY | | | (LAB) | | | SERVICES, | | | | | | CORE | | + +---------+ + + + | CHLORIDE, | 102 | 97 - 108 mmol/L | [facility] | | | PLASMA | | | LABORATORY | | | (LAB) | | | SERVICES, | | | | | | CORE | | + +---------+ + + + | TOTAL CO2, | 24 | 21 - 32 mmol/L | [facility] | | | PLASMA | | | LABORATORY | | | (LAB) | | | SERVICES, | | | | | | CORE | | + +---------+ + + + | CALCIUM, | 8.7 | 8.6 - 10.2 | [facility] | | | PLASMA | | mg/dL | LABORATORY | | | (LAB) | | | SERVICES, | | | | | | CORE | | + +---------+ + + + | ALBUMIN, | 4.0 | 3.5 - 4.7 g/dL | [facility] | | | PLASMA | | | LABORATORY | | | (LAB) | | | SERVICES, | | | | | | CORE | | + +---------+ + + + | PHOSPHORUS, | 3.8 | 2.4 - 4.7 mg/dL | [facility] | | | PLASMA | | | LABORATORY | | | (LAB) | | | SERVICES, | | | | | | CORE | | + +---------+ + + + | POTASSIUM | Sl Hemo | | [facility] | | | CMNT | | | LABORATORY | | | | | | SERVICES, | | | | | | CORE | | + +---------+ + + + | ANION GAP | 8 | mmol/L | [facility] | | | | [...] + + | Blood - Blood | + + + + + | Narrative | Performed At | + + + | Sample hemolyzed. Results for K, Total Bili, Direct Bili, AST, | [facility] | | LDH, or HDL may be inaccurate. Refer to comment under test result. | LABORATORY | | GFR is estimated using the MDRD equation recommended by the National | SERVICES, CORE | | Kidney Disease Education Program. Estimated GFR Interpretive | | | Information: <60 mL/min/1.73 sq m Chronic Kidney | | | Disease <15 mL/min/1.73 sq m Kidney Failure | | | Estimated GFR greater that 60 mL/min/1.73 sq m is of limited clinical | | | value. The MDRD equation is not valid in the following situations: | | | - Patients under 18 years of age - Severe malnutrition or obesity | | | - Vegetarian diet - Rapidly changing kidney function | | + + + + + + + + | Performing | Address | City/State/Zipcode | Phone Number | | Organization | | | | + + + + + | [facility] | [address] | [place] [address] | | | SERVICES, CORE | [address] | | | + + + + + CAPILLARY BLOOD GLUCOSE (NO CHG), POC (09/01/2013 8:41 PM PDT) + +---------+ + + + | Component | Value | Ref Range | Performed | Pathologist | | | | | At | Signature | + +---------+ + + + | BLOOD | 101 (H) | 60 - 99 mg/dL | [facility] | | | GLUCOSE, | | | [facility] | | | POC | | | [facility] | | | | | | OF [...] | [facility] | [address] | [place], [place] | | | DOM POINT OF CARE | [address] | [address] | | | TESTS | | | | + + + + + 12 LEAD ECG (09/01/2013 8:19 PM PDT) + + + + + + | Component | Value | Ref Range | Performed | Pathologist | | | | | At | Signature | + + + + + + | VENTRICULAR | 81 | BPM | [facility] | | | RATE | | | OF | | | | | | CARDIOLOGY | | + + + + + + | ATRIAL RATE | 81 | BPM | [facility] | | | | | | OF | | | | | | CARDIOLOGY | | + + + + + + | P-R | 178 | ms | [facility] | | | INTERVAL | | | OF | | | | | | CARDIOLOGY | | + + + + + + | QRS | 98 | ms | [facility] | | | DURATION | | | OF | | | | | | CARDIOLOGY | | + + + + + + | QT | 400 | ms | [facility] | | | | | | OF | | | | | | CARDIOLOGY | | + + + + + + | QTC | 464 | ms | [facility] | | | | | | OF | | | | | | CARDIOLOGY | | + + + + + + | P AXIS | -15 | degrees | [facility] | | | | | | OF | | | | | | CARDIOLOGY | | + + + + + + | R AXIS | -47 | degrees | [facility] | | | | | | OF | | | | | | CARDIOLOGY | | + + + + + + | T AXIS | 29 | degrees | [facility] | | | | | | OF | | | | | | CARDIOLOGY | | + + + + + + | EKG | Normal sinus rhythmLeft | | [facility] | | | DIAGNOSIS | axis deviationModerate | | OF | | | | voltage criteria for | | CARDIOLOGY | | | | LVH, may be normal | | | | | | variantAbnormal | | | | | | ECGConfirmed by | | | | | | BETH HODGES | | | | | | ([id number]) on 09/04/2013 | | | | | | 10:06:49 PM | | | | + + + + + + + + | Specimen | + + | | + + + + + | Narrative | Performed At | + + + | Please click | [facility] | | on view image for the detailed interpretation from [facility] results. | CARDIOLOGY | + + + + + | Procedure Note | + + | Interface, Cardiology Results - 09/04/2013 10:07 PM PDT Please click on view image | | for the detailed interpretation from [facility] results. | + + + + + + + | Performing | Address | City/State/Zipcode | Phone Number | | Organization | | | | + + + + + | [facility] | [address] | [place], [place] | | | CARDIOLOGY | [address] | [address] | | + + + + + documented in this encounter Visit Diagnoses + + | Diagnosis | + + | Aortic aneurysm of unspecified site without mention of rupture | + + documented in this encounter Administered Medications + +--------+ +------+------+ + | Medication Order | MAR | Action | Dose | Rate | Site | | | Action | Date | | | | + +--------+ +------+------+ + | bacitracin-NS IRRIGATION | Given | 09/05/19 | | | Surgical | | INTRAPROCEDURE PRN, Starting Fri | | 14 2:57 | | | Site | | 09/04/13 at 1457, Until Fri | | PM PDT | | | | | 09/04/13 at 1748 | | | | | | + +--------+ +------+------+ + +---+---+ | | | +---+---+ + +-------+ +---+---+ + | heparin 1000 units/mL-NS | Given | 09/05/19 | | | Surgical | | injection INTRAPROCEDURE PRN, | | 14 2:57 | | | Site | | Starting 09/04/13 at 1457, | | PM PDT | | | | | Until 09/04/13 at 1748 | | | | | | + +-------+ +---+---+ + +---+---+ | | | +---+---+ + +-------+ +-------+---+ + | mineral oil liquid | Given | 09/05/19 | 10 mL | | Surgical | | INTRAPROCEDURE PRN, Starting Fri | | 14 2:57 | | | Site | | 09/04/13 at 1457, Until Fri | | PM PDT | | | | | 09/04/13 at 1748 | | | | | | + +-------+ +-------+---+ + +---+---+ | | | +---+---+ documented in this encounter
--- OUTSIDE RECORDS SUMMARY | ~2019-11-14 | XMS | Encounter Summary ---
Demographics + + + | Address | [address] | | | [place] [address] | + + + | Home Phone | | + + + | Preferred Language | Unknown | + + + | Marital Status | | + + + | Zoroastrian Affiliation | NRP | + + + | Race | or | + + + | Ethnic Group | Not or | + + + Author + + + | Author | [facility] | + + + | Organization | [facility] | + [...] [place] | | | | | [address] | | + + + + + | Key Escobedo | ECON | Unknown | | + + + + + | Cathleen Escobedo | ECON | Unknown | | + + + + + Care Team Providers + +------+ + | Care Staff Psychologist Name | Role | Phone | + [...] | | | | | Physician's | [place], [place] | | | | | [place], 2nd floor | [address] | | | | | [place], [place] | [phone] | | | | | [address] | | | | | | [phone] | | | +--------+ + + + [...] | 2019 | cyn | | [address] [facility] | | | | | | [address] | | | | | | [place], [place] | | | | | | [address] | | | | | | [phone] | | | | | | | | +--------+ + + + + documented as of this encounter Visit Diagnoses Not on filedocumented in this encounter"
--- OUTSIDE RECORDS SUMMARY | ~2019-11-14 | XMS | Encounter Summary ---
Demographics + + + | Address | [address] | | | [place] [address] | + + + | Home Phone | | + + + | Preferred Language | Unknown | + + + | Marital Status | | + + + | Orthodox Affiliation | Unknown | + + + | Race | Unknown | + + + | Ethnic Group | Unknown | + + + Author + + + | Author | [facility] | | | and [place] | + + + | Organization | [facility] | | [...] [place] | | | | | [address] | | + + + + + Care Team Providers + +------+ + | Care Street Inspector Name | Role | Phone | + +------+ + | Stanley Kinney PA-C | PCP | | + +------+ + Encounter Details +--------+ + + + + | Date | Type | Department | Care Team | Description | +--------+ + + + + | 12/31/ | Orders Only | [facility] | Iris Malone, | | | 2018 | | CARDIOLOGY [place] | [address] | | | | | [address] | [place], [place] | | | | | [address] | [address] | | | | | [place] | | | | | | [address] | | | | | | [phone] | | | +--------+ + + + [...] [place] | | | | | | [phone] | | | | | | | | +--------+---------+ + + + documented as of this encounter Visit Diagnoses Not on filedocumented in this encounter"
--- OUTSIDE RECORDS SUMMARY | ~2019-11-14 | XMS | Encounter Summary ---
Demographics + + + | Address | [address] | | | [place] [address] | + + + | Home Phone | | + + + | Preferred Language | Unknown | + + + | Marital Status | | + + + | Latter-Day Affiliation | Unknown | + + + | Race | Unknown | + + + | Ethnic Group | Unknown | + + + Author + + + | Author | [facility] | | | and [place] | + + + | Organization | [facility] | | | [...] [place] | | | | | [address] | | + + + + + Care Team Providers + +------+ + | Care Hand Etcher Name | Role | Phone | + +------+ + | Raiza Slaughter PA-C | PCP | | + +------+ + Encounter Details +--------+ + + + + | Date | Type | Department | Care Team | Description | +--------+ + + + + | 09/17/ | Telephone | [facility] | Sofi Garner | | | 2019 | | [facility] | Hanna LISA | | | | | [address] | | | | | | [place], [place] | | | | | | [address] | | | | | | [phone] | | | +--------+ + + + [...] this encounter Miscellaneous Notes Telephone Encounter - Etienne Rivera MD - 09/18/2019 12:54 PM PDTOk to biopsy CT prone LLL. P DTTelephone Encounter - Sofi Garner RN - 09/18/2019 11:53 AM PDTRADIOLOGY BIOPSY R EFERRAL Diagnosis: left lung mass Biopsy Requested (be as specific as possible): CT biopsy left lung mass Referring Physician: Abigail Office contact: [phone] Patient Phone: [phone] Imaging: PET [id number] Patient Dx: as above, hx aortic aneurysm Patient BMI: 31.70 Blood thinners: none Any Red Flags?: To be performed by: documented in th is encounter Plan of Treatment +--------+---------+ + + + | Date | Type | Specialty | Care Team | Description | +--------+---------+ + + + | 01/26/ | Office | Cardiology | Iris Malone, | | | 2019 | Visit | | MD Erasmo ESCOTO | | | | | | [place] | | | | | | [address] | | | | | | | | +--------+---------+ + + + documented as of this encounter Visit Diagnoses Not on filedocumented in this encounter"
--- OUTSIDE RECORDS SUMMARY | ~2019-11-14 | XMS | Encounter Summary ---
Demographics + + + | Address | [address] | | | [place] [address] | + + + | Home Phone | | + + + | Preferred Language | Unknown | + + + | Marital Status | | + + + | Anabaptism Affiliation | NRP | + + + | Race | or | + + + | Ethnic Group | Not or | + + + Author + + + | Author | [facility] [facility] | + + + | Organization | [facility] | + + + | Address | Unknown | + + + | Phone | Unavailable | + + + Support + + + + + | Name | Relationship | Address | Phone | + + + + + | Kim Sigo | ECON | [address] | | | | | [place] | | | | | [address] | | + + + + + | Key Escobedo | ECON | Unknown | | + + + + + | Cathleen Escobedo | ECON | Unknown | | + + + + + Care Team Providers + +------+ + | Care Bin Tripper Operator Name | Role | Phone | + +------+ + | Anupama Juárez | PCP | | + +------+ + Encounter Details +--------+ + + + + | Date | Type | Department | Care Team | Description | +--------+ + + + + | 10/26/ | Documentati | Cardiothoracic | Ronald Barth MD | | | 2020 | on | [facility] | [address] | | | | | [address] | [address] | | | | | Physician's | [place], [place] | | | | | [place], [address]nd floor | [address] | | | | | [place], [place] | [phone] | | | | | [address] | | | | | | [phone] | | | +--------+ + + + [...] | cyn | | [address] [facility] | | | | | | [address] | | | | | | [place], [place] | | | | | | [address] | | | | | | [phone] | | | | | | | | +--------+ + + + + documented as of this encounter Visit Diagnoses Not on filedocumented in this encounter"
--- OUTSIDE RECORDS SUMMARY | ~2019-11-14 | XMS | Encounter Summary ---
Demographics + + + | Address | [address] | | | [place] [address] | + + + | Home Phone | | + + + | Preferred Language | Unknown | + + + | Marital Status | | + + + | Sabianism Affiliation | NRP | + + + | Race | or | + + + | Ethnic Group | Not or | + + + Author + + + | Author | [facility] [employer] [facility] | + + + | Organization | [facility] [employer] [facility] | + + + | Address | Unknown | + + + | Phone | Unavailable | + + + Support + + + + + | Name | Relationship | Address | Phone | + + + + + | Kim Sigo | ECON | [address] | | | | | [place] | | | | | [address] | | + + + + + | Key Escobedo | ECON | Unknown | | + + + + + | Cathleen Escobedo | ECON | Unknown | | + + + + + Care Team Providers + +------+ + | Care Network Communications Engineer Name | Role | Phone | + +------+ + | Anupama Juárez | PCP | | + +------+ + Encounter Details +--------+ + + + + | Date | Type | Department | Care Team | Description | +--------+ + + + + | 11/11/ | Telephone | Cardiothoracic | Rody Weinstein, | | | 2019 | | [facility] | PA-C [address] | | | | | [address] | [facility] | | | | | Physician's | [place], [place] | | | | | [place], [address] floor | [address] | | | | | [place], [place] | [phone] | | | | | [address] | | | | | | [phone] | | | +--------+ + + + [...] | 2019 | cyn | | [address] [facility] | | | | | | [address] | | | | | | [place], [place] | | | | | | [address] | | | | | | [phone] | | | | | | | | +--------+ + + + + documented as of this encounter Visit Diagnoses Not on filedocumented in this encounter"
--- OUTSIDE RECORDS SUMMARY | ~2019-11-14 | XMS | Clinical Summary ---
Demographics + + + | Address | [address] | | | [place] [address] | + + + | Home Phone | | + + + | Preferred Language | Unknown | + + + | Marital Status | | + + + | Yazidi Affiliation | NRP | + + + | Race | or | + + + | Ethnic Group | Not or | + + + Author + + + | Author | [facility] | + + + | Organization | [facility] | + + + | Address | Unknown | + + + | Phone | Unavailable | + + + Support + + + + + | Name | Relationship | Address | Phone | + + + + + | Kim Escobedo | ECON | [address] | | | | | [place] | | | | | [address] | | + + + + + | Key Escobedo | ECON | Unknown | | + + + + + | Cathleen Escobedo | ECON | Unknown | | + + + + + Care Team Providers + +------+ + | Care Sight Effects Specialist Name | Role | Phone | + +------+ + | Anupama Juárez | PCP | | + +------+ + Source Comments [facility] Allergies + + + + + + | Active Allergy | Reactions | Severity | Noted | Comments | | | | | Date | | + + + + + + | Cephalexin | Anaphylaxis | High | 12/08/19 | | | | | | 16 | | + + + + + + | Clindamycin | Anaphylaxis | High | 12/08/19 | | | | | | 16 | | + + + + + + | Lisinopril | Cough | | 09/02/19 | | | | | | 14 | | + + + + + + Medications + + + +---------+------+------+-------+ | Medication | Sig | Dispensed | Refills | Star | End | Statu | | | | | | t | Date | s | | | | | | Date | | | + + + +---------+------+------+-------+ | | Take 25 mg by mouth | | 0 | | | Activ | | hydrochlorothiazide | once daily. | | | | | e | | 25 mg oral tablet | | | | | | | + + + +---------+------+------+-------+ | simvastatin 20 mg | Take 20 mg by mouth | | 0 | | | Activ | | oral tablet | once daily in the | | | | | e | | | evening. | | | | | | + + + +---------+------+------+-------+ | aspirin EC 81 mg | Take 81 mg by mouth | | 0 | | | Activ | | oral tablet,delayed | once daily. | | | | | e | | release (DR/EC) | | | | | | | + + + +---------+------+------+-------+ | | Take 1 tablet by | | 0 | | | Activ | | multivitamin-mineral | mouth once daily. | | | | | e | | s oral tablet | | | | | | | + + + +---------+------+------+-------+ | metoprolol | Take 1 tablet by | 60 | 3 | 04/3 | | Activ | | tartrate 100 mg oral | mouth two times | tablet | | 0/20 | | e | | tablet | daily. | | | 14 | | | + + + +---------+------+------+-------+ | irbesartan 150 mg | Take 1 tablet by | | 0 | 02/1 | | Activ | | oral tablet | mouth once daily. | | | 3/20 | | e | | | | | | 15 | | | + + + +---------+------+------+-------+ | tiZANidine 4 mg | Take 4 mg by mouth | | 0 | | | Activ | | oral tablet | once daily at | | | | | e | | | bedtime. | | | | | | + + + +---------+------+------+-------+ | acetaminophen | Take 2 tablets by | | 0 | 06/2 | | Activ | | (TYLENOL EXTRA | mouth every eight | | | 1/20 | | e | | STRENGTH) 500 mg | hours. Indications: | | | 20 | | | | oral | pain | | | | | | | tabletIndications: | | | | | | | | pain | | | | | | | + + + +---------+------+------+-------+ | senna-docusate | Take 1-2 tablets by | | 0 | 06/2 | | Activ | | 8.6-50 mg oral | mouth two times | | | 1/20 | | e | | tabletIndications: | daily. Indications: | | | 20 | | | | constipation | constipation | | | | | | + + + +---------+------+------+-------+ Active Problems + + + | Problem | Noted Date | + + + | Primary cancer of left lower lobe of lung | 10/28/2019 | + + + | Aortic aneurysm without rupture | 09/01/2013 | + + + Encounters +--------+ + + + + | Date | Type | Specialty | Care Team | Description | +--------+ + + + + | 11/13/ | Telephone | Thoracic Surgery | Tresa Peterson MD | | | 2019 | | | | | +--------+ + + + + | 11/11/ | Telephone | Thoracic Surgery | Rody Weinstein, | | | 2019 | | | PA-C | | +--------+ + + + + | 11/11/ | Telephone | Thoracic Surgery | Rody Weinstein, | | | 2019 | | | PA-C | | +--------+ + + + + | 11/10/ | Warper Fixer | Thoracic Surgery | Slade Cox NP | Primary cancer of | | 2019 | | | | left lower lobe of | | | | | | lung (HCC) (Primary | | | | | | Dx) | +--------+ + + + + | 11/04/ | Documentati | Thoracic Surgery | Slade Cox NP | Tumor Board | 2019 | on | | | Recommendation (For | | | | | | 05 November Lung Tumor | | | | | | Board) | +--------+ + + + + | 10/31/ | Pharmacy | | | | | 2019 | Visit | | | | +--------+ + + + + | 10/27/ | Anesthesia | Surgery | Garrett Adams MD | | | 2019 | Event | | Elías Vargas, | | | | | | | | +--------+ + + + + | 10/27/ | Surgery | Surgery | Ronald Barth MD | LEFT THORACOSCOPY, | | 2019 | | | | THORACOTOMY, LEFT | | | | | | LOWER LOBE SUPERIOR | | | | | | SEGMENTECTOMY, | | | | | | BRONCHOSCOPY | +--------+ + + + + | 10/27/ | Hospital | Adult Acute Care | Ronald Barth MD | | | 2019 - | Encounter | | | | | | | | | | | 10/31/ | | | | | | 2019 | | | | | +--------+ + + + + | 10/27/ | Orders Only | Thoracic Surgery | Ronald Barth MD | Primary cancer of | | 2019 | | | | left lower lobe of | | | | | | lung (HCC); Neoplasm | +--------+ + + + + | 10/27/ | Travel | | | | | 2019 | | | | | +--------+ + + + + | 10/27/ | Procedure | Surgery | | | | 2019 | Pass | | | | +--------+ + + + + | 10/26/ | Telephone | Thoracic Surgery | Enrike Soler, | | | 2019 | | | CARLITOS | | +--------+ + + + + | 10/26/ | Documentati | Thoracic Surgery | Ronald Barth MD | | | 2019 | on | | | | +--------+ + + + + | 10/21/ | Anesthesia | Pre-operative | Ai Bunerostro, | | | 2019 | Event | Medicine | [facility] | | +--------+ + + + + | 10/21/ | Office | Pre-operative | Ai Buenrostro, | Preop examination | | 2019 | Visit | Medicine | [facility] | (Primary Dx); | | | | | | Primary cancer of | | | | | | left lower lobe of | | | | | | lung (HCC); | | | | | | Hypertension, | | | | | | unspecified type; | | | | | | Hyperlipidemia, | | | | | | unspecified | | | | | | hyperlipidemia type; | | | | | | Gastroesophageal | | | | | | reflux disease, | | | | | | esophagitis presence | | | | | | not specified; | | | | | | Chronic neck pain | +--------+ + + + + | 10/12/ | Documentati | Thoracic Surgery | Ronald Barth MD | | | 2019 | on | | | | +--------+ + + + + | 10/11/ | Telephone | Thoracic Surgery | Slade Cox NP | | | 2019 | | | | | +--------+ + + + + | 10/08/ | Office | Thoracic Surgery | Ronald Barth MD | Primary cancer of | | 2019 | Visit | | | left lower lobe of | | | | | | lung (HCC) (Primary | | | | | | Dx); Neoplasm | +--------+ + + + + from Last 3 Months Family History + + +------+ + | Medical History | Relation | Name | Comments | + + +------+ + | Diabetes | Father | | | + + +------+ + | High blood pressure | Father | | | + + +------+ + | Heart Attack | Grandfath | | | | | er | | | + + +------+ + | Diabetes | Sister | | | + + +------+ + + +------+--------+ + | Relation | Name | Status | Comments | + +------+--------+ + | Father | | | | + +------+--------+ + | Grandfather | | | | + +------+--------+ + | Sister | | | | + +------+--------+ + Social History + + + +--------+ [...] | | | + + + + Last Filed Vital Signs + + + [...] | | + + + + + Plan of Treatment +--------+ + + + + | Date | Type | Specialty | Care Team | Description | +--------+ + + + + | 11/15/ | Telephone-S | Thoracic Surgery | Ronald Barth MD | | | 2019 | cyn | | [address] [facility] | | | | | | [address] | | | | | | [place], [place] | | | | | | [address] | | | | | | [phone] | | | | | | | | +--------+ + + + + + + + + + | Health Maintenance | Due Date | Last Done | Comments | + + + + + | Pneumococcal | | 04/18/2012 | | | vaccination (1 of 2 | 0 | | | | - PCV13) | | | | + + + + + | Influenza (Flu) | | 05/31/2017, 02/17/2015, | | | vaccination (#1) | 0 | 02/13/2013, Additional history | | | | | exists | | + + + + + Implants + +------+-------+ +--------+--------+--------+ | Implanted | Type | Area | Manufacture | Device | Shelf | Model | | | | | r | | Expira | / | | | | | | Identi | tion | Serial | | | | | | fier | Date | / Lot | + +------+-------+ +--------+--------+--------+ | Watkins Pledget Ptfe 2.5cm X | | N/A: | BARD | | 06/12/ | [id number] | | 15cm - [id number]: | | Chest | | | 2019 | / | | Qty: 1 on 09/04/2013 by | | | | | | /[id number] | | Destin Scott MD at [facility] | | | | | | 205 | | INPATIENT REV LOC | | | | | | | + +------+-------+ +--------+--------+--------+ | Graft Hemashield Chinik | | N/A: | ATRIUM | | 01/10/ | [id number] | | Woven Dbl Velour 30 X 30 Cm - | | Chest | MEDICAL | | 2018 | [id number] | | [id number]: Qty: 1 on | | | | | | P0 / | | 09/04/2013 by Tyler, | | | | | | /[id number] | | MD Destin at [facility] INPATIENT | | | | | | 460 | | REV LOC | | | | | | | + +------+-------+ +--------+--------+--------+ | Coseal Surgical Sealant 8ml - | | N/A: | HAIR | | 06/12/ | [id number] | | [id number]: Qty: 1 on | | Chest | HEALTHCARE | | 2014 | / | | 09/04/2013 by Tyler, | | | | | | /[id number] | | MD Destin at [facility] INPATIENT | | | | | | 235 | | REV LOC | | | | | | | + +------+-------+ +--------+--------+--------+ | Plate Sternum Wire Acutie - | | | ACUTE | | | [id number] | | [id number]: Qty: 2 on | | | INNOVATIONS | | | / | | 09/04/2013 at [facility] INPATIENT | | | | | | | | REV LOC | | | | | | | + +------+-------+ +--------+--------+--------+ Procedures + +--------+ + + + | [...] | + +--------+ + + + | ANTIBODY SCREEN | Routin | 10/28/2019 | Primary cancer of | Results for this | | | e | 11:00 AM | left lower lobe of | procedure are in the | | | | PDT | lung (HCC) Neoplasm | results section. | + +--------+ + + + | ABO & RH TYPE | Routin | 10/28/2019 | Primary cancer of | Results for this | | | e | 11:00 AM | left lower lobe of | procedure are in the | | | | PDT | lung (HCC) Neoplasm | results section. | + +--------+ + + + | TYPE AND SCREEN | Routin | 10/28/2019 | Primary cancer of | Results for this | | | e | 11:00 AM | left lower lobe of | procedure are in the | | | | PDT | lung (HCC) Neoplasm | results section. | + +--------+ + + + | INR | Routin | 10/28/2019 | Primary cancer of | Results for this | | | e | 11:00 AM | left lower lobe of | procedure are in the | | | | PDT | lung (HCC) Neoplasm | results section. | + +--------+ + [...] section. | + +--------+ + + + from Last 3 Months Results CARDIOLOGY (11/01/2019 12:00 AM PDT)Only the most recent of 11 results within the time tobin od is included. + + + | Narrative | Performed [...] Account, [facility] Res In Interface - 10/31/2019 3:03 PM [...] PORTABLE CHEST 1 VIEW (10/31/2019 7:17 AM PDT)Only the most recent of 3 results with in the time period is included. + + | Specimen | + + | | + + + + + | Narrative | Performed At | + + + | EXAM: SC CHEST 1 VIEW HISTORY: s/p L VATS [...] Note | + + | Service Account, [facility] In Interface - 10/31/2019 5:28 PM PDT EXAM: SC CHEST 1 | | VIEW HISTORY: s/p [...] + CBC (HEMOGRAM) ONLY (10/31/2019 3:59 AM PDT)Only the most recent of 2 results within the period is included. + + + + + + | [...] | + + + + + | [facility] | [address] | [place] [address] | | | SERVICES, CORE | ANTOINE [...] | | | LABORATORY | | | RUSSIAN | | | SERVICES, | | | [...] MDRD equation recommended by the National | [facility] | | Kidney Disease Education Program. Estimated [...] | + + + + + | [facility] | [address] [facility] [address] | [place] [address] | | | SERVICES, RUDY | ANTOINE [...] | | | LABORATORY | | | RUSSIAN | | | SERVICES, | | | [...] MDRD equation recommended by the National | [facility] | | Kidney Disease Education Program. Estimated [...] | + + + + + | [facility] | [address] [facility] | [place] [address] | | | SERVICES, RUDY | [address] | | | + + + + + CAPILLARY BLOOD GLUCOSE (NO CHG), POC (10/28/2019 7:09 PM PDT)Only the most recent of 2 re sults within the time period is included. + +---------+ + + + | Component [...] | [facility] | [address] | [place], [place] | | | DOM POINT OF CARE | [facility] | [address] | | | TESTS | | | [...] with no diagnostic | | OF | A MD Gloria on | | | abnormality (0/3) | [...] PathologistPathology, | | | | | | [facility] | | | | | | UniversityMy electronic | | | | | | [...] | | | | | | number [id number]. Lymph | | | | | | [...] identified. | | | | | | Saw Setter sections | | | | | | [...] | | | | | | cassette D1.([id number]) | | | | + + + [...] | | | | | [facility] | | | | | | University5:30 [...] | | | | | [facility] | | | | | | University5:42 [...] PathologistPathology, | | | | | | [facility] | | | | | | University5:58 PM | | | | + + [...] | + + + + + | [facility] | [address] | [place] [address] | | | PATHOLOGY | [address] | | | + + + + + ETT (10/28/2019 3:27 PM PDT) + + [...] INTUBATION ATTEMPT | | | 1 Videolaryngoscopy: [facility] Standard geometry curved blade | | | [...] used: | | | Ultrasound guided and [place] technique Ultrasound Image: Not | | | [...] | complications. | | + + + INR (10/28/2019 11:00 AM PDT) + +-------+ + + + | Component | Value | Ref Range | Performed | Pathologist | | | | | At | Signature | + +-------+ + + + | INR | 1.00 | 0.90 - 1.20 INR | [facility] [...] + | [facility] | [address] | [place] [address] | | | SERVICES, CORE | [address] | | | + + + + + ANTIBODY SCREEN (10/28/2019 11:00 AM PDT) + + + + + [...] | + + + + + | [facility] | [address] | [place] [address] | | | SERVICES, | [address] | | | | TRANSFUSION MEDICINE | | | | + + + + + ABO & RH TYPE (10/28/2019 11:00 AM PDT) + + + + + [...] | + + + + + | [facility] | [address] | [place] [address] | | | SERVICES, | [address] [...] | | | + +---------+ + + COVID-19 (10/26/2019 2:56 PM PDT) [...] + + + | TESTING | [facility] | | [facility] - | | | LOCATION | HealthComment: [facility] | | ADULT | | | | listed as Resulting lab | | ENDOCRINOLO | | | | d/t [facility] | | GY | | | | [...] + | [facility] | [address] | [place] [address] | | | ENDOCRINOLOGY | [address] | | | + + + + + from Last 3 Months Insurance + +--------+ +--------+ + +--------+ | Payer | Benefi | Subscriber | Effect | Phone | Address | Type | | | t Plan | ID | serge | | | | | | / | | Dates | | | | | | Group | | | | | | + +--------+ +--------+ + +--------+ | MEDICARE | MEDICA | xxxxxxxxxxx | | [phone] | [address] | [address] | | | RE A & | | [phone] | | | [address] | | esent | | [place] | | | | | | | | [phone] | | + +--------+ +--------+ + +--------+ | [facility] | | xxxxxxxxx | 05/13/19 | | | Agency | | SERVICE | | | 10-Pre | | | | | | HEALTH | | sent | | | | | | | | | | | | | | SERVIC | | | | | | | | E | | | | | | + +--------+ +--------+ + +--------+ + +--------+ +--------+ + + | Guarantor Name | Accoun | Relation to | Date | Phone | Billing Address | | | t Type | Patient | of | | | | | | | | | | + +--------+ +--------+ + + | Richard Escobedo III | Person | Self | [birth year] | [address] | | | al/Fam | | 1956 | [phone] | [place] [address] | | | aleida | | | 1 (Home) | | + +--------+ +--------+ + + | Richard Escobedo III | Agency | Self | [birth year] | [address] | | | | | 5 | [phone] | [place] [address] | | | | | | 1 (Home) | | + +--------+ +--------+ + + Advance Directives + + + + + | Code Status | Date | Date | Comments | | | Activated | Inactivated | | + + + + + | Full Code | 10/28/2019 | 11/01/2019 | | | | 9:15 PM | 4:45 PM | | + + + + + + + + +---+ | | | | | + + + +---+ | Full Code | 09/04/2013 | 09/09/2013 | | | | 6:02 PM | 7:43 PM | | + + + +---+ + + + +---+ | | | | | + + + +---+ | Full Code | 09/02/2013 | 09/04/2013 | | | | 12:45 AM | 6:02 PM | | + + + +---+
--- OUTSIDE RECORDS SUMMARY | ~2019-11-14 | XMS | Encounter Summary ---
Demographics + + + | Address | [address] | | | [place] [address] | + + + | Home Phone | | + + + | Preferred Language | Unknown | + + + | Marital Status | | + + + | Yarsanism Affiliation | NRP | + + + | Race | or | + + + | Ethnic Group | Not or | + + + Author + + + | Author | [facility] | + + + | Organization | [facility] [employer] [facility] | + + + | Address | Unknown | + + + | Phone | Unavailable | + + + Support + + + + + | Name | Relationship | Address | Phone | + + + + + | Kim Sigo | ECON | [address] | | | | | [place] | | | | | [address] | | + + + + + | Key Escobedo | ECON | Unknown | | + + + + + | Cathleen Escobedo | ECON | Unknown | | + + + + + Care Team Providers + +------+ + | Care Distance Education Director Name | Role | Phone | + [...] | +--------+ + + + + | 09/04/ | Anesthesia | 6A Intra Op 3181 | Felipe Esteban, | | | 2013 | Event | [address] | [address] | | | | | [facility] | [address] | | | | | Hospital Admitting | [place], [place] | | | | | Desk Located on the | [address] | | | | | 9th floor | [phone] | | | | | [place], [place] | | | | | | [address] | KoenigToni MD | | | | | | [address] | | | | | | [facility], | | | | | | [place] [address] | | | | | | [phone] | | | | | | | | +--------+ + + + + Anesthesia Record + + + + + | Procedure Name | Responsible | Anesthesia Start | Anesthesia Stop Time | | | Anesthesiologist | Time | | + + + + + | ASCENDING AORTIC | Felipe Esteban MD | 09/04/13 1317 | 09/04/13 1800 | | RECONSTRUCTION; | | | | | Pathology x1 (1 | | | | | ROGERIO) (N/A Chest) | | | | + + + + + +----+---+ + + | Da | T | Event | Comment | | te | i | | | | | m | | | | | e | | | +----+---+ + + | 04 | 1 | | | | /2 | 2 | | | | 5/ | 5 | | | | 20 | 3 | | | | 14 | | | | +----+---+ + + | | 1 | Pt. Check | Prior to anesthesia start, pt. Identified, examined, chart | | | 2 | | reviewed, PARQ held, anesthetic plan made or approved by | | | 5 | | attending anesthesiologist. NPO status confirmed as appropriate | | | 3 | | for procedure Preoperative evaluation: unchanged | +----+---+ + + | | 1 | An Start | | | | 3 | | | | | 1 | | | | | 7 | | | +----+---+ + + | | 1 | Art in-situ | | | | 3 | | | | | 1 | | | | | 8 | | | +----+---+ + + | | 1 | An Start | | | | 3 | Data | | | | 2 | | | | | 2 | | | +----+---+ + + | | 1 | Vitals | Monitors applied Vital signs checked Patient ready for anesthesia | | | 3 | Checked | | | | 3 | | | | | 0 | | | +----+---+ + + | | 1 | Std. Airway | | | | 3 | Mgt. | | | | 4 | | | | | 1 | | | +----+---+ + + | | 1 | CRIS Probe | | | | 3 | Inserted | | | | 4 | | | | | 5 | | | +----+---+ + + | | 1 | Central | | | | 4 | venous line | | | | 0 | | | | | 4 | | | +----+---+ + + | | 1 | Ready | | | | 4 | | | | | 0 | | | | | 6 | | | +----+---+ + + | | 1 | Abx | | | | 4 | Administere | | | | 1 | d | | | | 4 | | | +----+---+ + + | | 1 | Timeout | | | | 4 | | | | | 3 | | | | | 5 | | | +----+---+ + + | | 1 | Incision | | | | 4 | | | | | 3 | | | | | 7 | | | +----+---+ + + | | 1 | Note | Act 177 | | | 4 | | | | | 4 | | | | | 2 | | | +----+---+ + + | | 1 | An Aortic | | | | 5 | Cannula | | | | 0 | | | | | 5 | | | +----+---+ + + | | 1 | Note | ACT 514 | | | 5 | | | | | 1 | | | | | 3 | | | +----+---+ + + | | 1 | An CV | | | | 5 | Bypass init | | | | 1 | | | | | 4 | | | +----+---+ + + | | 1 | Aortic | | | | 5 | Clamp On | | | | 2 | | | | | 6 | | | +----+---+ + + | | 1 | Aortic | | | | 6 | Clamp Off | | | | 3 | | | | | 3 | | | +----+---+ + + | | 1 | An CV | | | | 6 | Bypass | | | | 5 | Ended | | | | 1 | | | +----+---+ + + | | 1 | Note | ACT 103, Heparin concentration 0 | | | 7 | | | | | 1 | | | | | 3 | | | +----+---+ + + | | 1 | CRIS PROBE | | | | 7 | REMOVED | | | | 2 | | | | | 7 | | | +----+---+ + + | | 1 | Surgery end | | | | 7 | | | | | 3 | | | | | 4 | | | +----+---+ + + | | 1 | OR to | patient transported to ICU with continuos monitoring, intubated | | | 7 | ICU/Handoff | and ventilated, signout given to ICU team | | | 4 | | | | | 7 | | | +----+---+ + + | | 1 | an stop | | | | 7 | data | | | | 5 | | | | | 4 | | | +----+---+ + + | | 1 | SBAR | Intraoperative handoff | | | 7 | | | | | 5 | | | | | 4 | | | +----+---+ + + | | 1 | Anesthesia | | | | 8 | End | | | | 0 | | | | | 0 | | | +----+---+ + + +------+ | Meds | +------+ + + + | Name | Total | + + + | PHENYLephrine | 2,600 mcg | + + + | cefUROXime (ZINACEF) IV 1.5 g | 1.5 g | + + + | norepinephrine INF (8mg/250mL) | 648.99 mcg | + + + | midazolam | 5 mg | + + + | fentaNYL | 1,000 mcg | + + + | lidocaine 2% | 100 mg | + + + | rocuronium | 100 mg | + + + | heparin | 45,000 Units | + + + | protamine | 400 mg | + + + | aminocaproic acid | 5,000 mg | + + + | aminocaproic acid INF (250 mg/mL) | 10,959.5 mg | + + + | vasopressin | 14 Units | + + + | propofol INF | 621,832.5 mcg | + + + | propofol | 60 mg | + + + | esmolol (BREVIBLOC) IV infusion | 162,963 mcg | + + + | dexmedetomidine 400 mcg in NaCl | 36.21 mcg | | 0.9 % IV infusion | | + + + | EPINEPHrine | 10 mcg | + + + | NS | 1,100 mL | + + + | NS | 0 mL | + + + + + | Name | + + | O2 FR Avance (Total Liters) | + + | Air FR Avance (l/min) | + + | Insp Iso | + + | Et Iso | + + + + | No blood administrations on file. | + + +--------+ + + + | Type | Details | Placement | Removal | +--------+ + + + | RETIRE | 09/01/13; 2126; 09/04/13; 134; | 09/01/132126 by | 09/04/131340 by | | D - | No; 18; Right; Forearm; Positive | Tresa Crespo RN | Samantha Morales, | | Periph | | | MD | | eral | | | | | Line | | | | +--------+ + + + | RETIRE | 09/04/13; 1341; Yes; Left; Hand; | 09/01/13 2128 by | 09/04/13 1341 by | | D - | Positive | | Samantha Morales, | | Periph | | | MD | | eral | | | | | Line | | | | +--------+ + + + | RETIRE | 09/02/13; 0230; 09/06/13; 0415; | 09/02/13 0230 by | 09/06/13 0415 by Mi | | D - | 20g; right, radial | Lupe Suazo | Aiden Coy | | Jasmin | | RV SERVICER | | | al | | | | | Line | | | | +--------+ + + + | RETIRE | 09/04/13; No; midline; sternal; | 09/04/13 0000 by | 09/09/13 1339 by | | D - | 09/09/13; 1339 | Maribel Ballesteros RN | Bobo Ramsey | | Incisi | | | | | on | | | | +--------+ + + + | RETIRE | 09/04/13; 09/07/13; 899; No; | 09/04/13 0000 by | 09/07/13 09 by | | D - | LEFT; Les; Chest | Alma Blackmon RN | Elías Tejeda RN | | Drains | | | | | | | | | | (wound | | | | | s/surg | | | | | ical) | | | | +--------+ + + + | RETIRE | 09/04/13; Jay Sterling; 09/05/13; | 09/04/13 0000 by | 09/05/13 0200 by | | D - | 0200 | Alma Blackmon RN | Slade Geiger | | PA | | | | | Cathet | | | | | er | | | | +--------+ + + + | RETIRE | 09/04/13; 09/07/13; 899; No; | 09/04/13 0000 by | 09/07/13 0900 by | | D - | RIGHT; Les | Rudolph Brooks RN | Elías Tejeda RN | | Drains | | | | | | | | | | (wound | | | | | s/surg | | | | | ical) | | | | +--------+ + + + | RETIRE | 09/04/13 (Inserted by Raiza | 09/04/13 134 by | 09/06/13 0847 by | | D - | LISA Bass); 1340; 09/06/13; 0847; | Maribel Ballesteros RN | Alyssa Goff RN | | Urinar | No; Temp-probe Chaka; 16FR | | | | y Cath | | | | | | | | | | Placem | | | | | ent | | | | | (Nicolette | | | | | & Cath | | | | | Care | | | | | Daily | | | | | and Q | | | | | BM) | | | | +--------+ + + + | RETIRE | 09/04/13; 1340; 09/07/13; 07; | 09/04/13 1340 by | 09/07/13 07 by | | D - | No; 14; Left; Antecubital; None; | Samantha Morales, | Elías Tejeda, LISA | | Periph | No; Positive | MD | | | eral | | | | | Line | | | | +--------+ + + + | RETIRE | 09/04/13; 1341; 24 cm; 09/04/13; | 09/04/13 1341 by | 09/04/13 2200 by | | D - | 2200; Endotracheal Tube (ETT); | Samantha Morales, | Slade Geiger | | ETT/Or | Oral; From Teeth; Breath Sounds | MD | | | al | bilaterally, Continous | | | | Airway | Capnography; Cuffed | | | +--------+ + + + | RETIRE | 09/04/13; 1404; Introducer; | 09/04/13 1404 by | 09/06/13 1210 by | | D - | 09/06/13; 1210; Left; Neck; | Samantha Morales, | Alyssa Goff RN | | Centra | Jugular | MD | | | l Line | | | | +--------+ + + + | RETIRE | 09/04/13; 1637; 09/07/13; 0900; | 09/04/13 1637 by | 09/07/13 0900 by | | D - | No; V-wires; Temporary | Maribel Ballesteros RN | Elías Tejeda RN | | Settlement Worker | | | | | al | | | | | Pacema | | | | | ker | | | | +--------+ + + + | RETIRE | 09/04/13; 1646; 09/04/13; 1731; | 09/04/131646 by | 09/04/131731 by | | D - | x2; No; (19 Fr.); Les; Middle | Maribel Ballesteros RN | Alma Blackmon RN | | Chest | | | | | Tube | | | | +--------+ + + + | RETIRE | 09/04/13; 1800; 09/04/13; 2129; | 09/04/13 1800 by | 09/04/132129 by | | D - | Yes; Oral; Yes; OG | Meaghan Garcia RN | Slade Geiger | | Gastri | | | | | c/Feed | | | | | ing | | | | | Tube | | | | +--------+ + + + documented in this encounter Social History + +-------+ +--------+------+ | Tobacco [...] | 2019 | cyn | | [address] [facility] | | | | | | [address] | | | | | | [place], [place] | | | | | | [address] | | | | | | [phone] | | | | | | | | +--------+ + + + + documented as of this encounter Visit Diagnoses Not on filedocumented in this encounter Administered Medications + +--------+ + +------+------+ | Medication Order | MAR | Action | Dose | Rate | Site | | | Action | Date | | | | + +--------+ + +------+------+ | aminocaproic acid (AMICAR) | Given | 09/05/19 | 5,000 mg | | | | injection intravenous, | | 14 2:10 | | | | | INTRAPROCEDURE PRN, Starting Fri | | PM PDT | | | | | 09/04/13 at 1410, Until Fri | | | | | | | 09/04/13 at 1754 | | | | | | + +--------+ + +------+------+ +---+---+ | | | +---+---+ + +---------+ + +--------+---+ | aminocaproic acid INF | New Bag | 09/05/19 | 30 | 11.44 | | | intravenous, INTRAPROCEDURE | | 14 2:10 | mg/kg/hr | mL/hr | | | CONTINUOUS PRN, Starting Fri | | PM PDT | | | | | 09/04/13 at 1410, Until Fri | | | | | | | 09/04/13 at 1754 | | | | | | + +---------+ + +--------+---+ +---+---+ | | | +---+---+ + +-------+ +-------+---+---+ | cefUROXime (ZINACEF) IV 1.5 g | Given | 09/05/19 | 1.5 g | | | | 1.5 g, intravenous, 6A | | 14 2:14 | | | | | INTRAPROCEDURE ONCE (DISPENSE), 1 | | PM PDT | | | | | dose, Starting Sat09/04/13 at | | | | | | | 0600, Until Sat09/04/13 at 1414 | | | | | | + +-------+ +-------+---+---+ +---+---+ | | | +---+---+ + + + + +--------+---+ | dexmedetomidine 400 mcg in NaCl | Rate/Dos | 09/05/19 | 1.2 | 28.59 | | | 0.9 % IV infusion 0.3-2 | e Change | 14 1:17 | mcg/kg/h | mL/hr | | | mcg/kg/hr | | PM PDT | r | | | | 95.3 kg (rounded to 7.15-47.65 | | | | | | | mL/hr), intravenous, CONTINUOUS, | | | | | | | Starting Sat09/04/13 at 0230, | | | | | | | Until Sat09/04/13 at 1802 | | | | | | + + + + +--------+---+ +---------+ + +--------+---+ | New Bag | 09/05/19 | 1.2 | 28.59 | | | | 14 11:00 | mcg/kg/h | mL/hr | | | | AM PDT | r | | | +---------+ + +--------+---+ | New Bag | 09/05/19 | 1.2 | 28.59 | | | | 14 8:00 | mcg/kg/h | mL/hr | | | | AM PDT | r | | | +---------+ + +--------+---+ +---+---+ | | | +---+---+ + +-------+ +--------+---+---+ | EPINEPHrine (ADRENALIN) | Given | 09/05/19 | 10 mcg | | | | injection INTRAPROCEDURE PRN, | | 14 4:42 | | | | | Starting Sat09/04/13 at 1642, | | PM PDT | | | | | Until Sat09/04/13 at 1754 | | | | | | + +-------+ +--------+---+---+ +---+---+ | | | +---+---+ + + + + +--------+---+ | esmolol (BREVIBLOC) IV infusion | Rate/Dos | 09/05/19 | 90 | 25.73 | | | 1-300 mcg/kg/min | e Change | 14 1:17 | mcg/kg/m | mL/hr | | | 95.3 kg (rounded to 0.29-85.77 | | PM PDT | in | | | | mL/hr), intravenous, CONTINUOUS, | | | | | | | Starting Sat09/02/13 at 1115, | | | | | | | Until Sat09/04/13 at 1802 | | | | | | + + + + +--------+---+ + + + +--------+---+ | New Bag | 09/05/19 | 90 | 25.73 | | | | 14 11:00 | mcg/kg/m | mL/hr | | | | AM PDT | in | | | + + + +--------+---+ | Rate/Dose Verify | 09/05/19 | 90 | 25.73 | | | | 14 7:31 | mcg/kg/m | mL/hr | | | | AM PDT | in | | | + + + +--------+---+ +---+---+ | | | +---+---+ + +-------+ +---------+---+---+ | fentaNYL citrate (PF) | Given | 09/05/19 | 250 mcg | | | | (SUBLIMAZE) injection | | 14 4:14 | | | | | INTRAPROCEDURE PRN, Starting Fri | | PM PDT | | | | | 09/04/13 at 1341, Until Fri | | | | | | | 09/04/13 at 1754, sedation | | | | | | + +-------+ +---------+---+---+ +-------+ +---------+---+---+ | Given | 09/05/19 | 250 mcg | | | | | 14 2:38 | | | | | | PM PDT | | | | +-------+ +---------+---+---+ | Given | 09/05/19 | 250 mcg | | | | | 14 2:35 | | | | | | PM PDT | | | | +-------+ +---------+---+---+ +---+---+ | | | +---+---+ + +-------+ +---------+---+---+ | heparin bolus from continuous | Given | 09/05/19 | 45,000 | | | | infusion intravenous, | | 14 2:57 | Units | | | | INTRAPROCEDURE PRN, Starting Fri | | PM PDT | | | | | 09/04/13 at 1457, Until Fri | | | | | | | 09/04/13 at 1754 | | | | | | + +-------+ +---------+---+---+ +---+---+ | | | +---+---+ + +-------+ +--------+---+---+ | lidocaine PF (XYLOCAINE MPF) 20 | Given | 09/05/19 | 100 mg | | | | mg/mL (2 %) injection | | 14 1:41 | | | | | INTRAPROCEDURE PRN, Starting Fri | | PM PDT | | | | | 09/04/13 at 1341, Until Fri | | | | | | | 09/04/13 at 1754 | | | | | | + +-------+ +--------+---+---+ +---+---+ | | | +---+---+ + +-------+ +------+---+---+ | midazolam (VERSED) injection | Given | 09/05/19 | 1 mg | | | | INTRAPROCEDURE PRN, Starting Fri | | 14 4:14 | | | | | 09/04/13 at 1341, Until Fri | | PM PDT | | | | | 09/04/13 at 1754, sedation | | | | | | + +-------+ +------+---+---+ +-------+ +------+---+---+ | Given | 09/05/19 | 2 mg | | | | | 14 2:35 | | | | | | PM PDT | | | | +-------+ +------+---+---+ | Given | 09/05/19 | 2 mg | | | | | 14 1:41 | | | | | | PM PDT | | | | +-------+ +------+---+---+ +---+---+ | | | +---+---+ + +---------+ +---+-------+---+ | NaCl 0.9 % IV INTRAPROCEDURE | New Bag | 09/05/19 | | 100 | | | CONTINUOUS PRN, Starting Fri | | 14 2:09 | | mL/hr | | | 09/04/13 at 1409, Until Fri | | PM PDT | | | | | 09/04/13 at 1754 | | | | | | + +---------+ +---+-------+---+ +---+---+ | | | +---+---+ + + + +---+---+---+ | NaCl 0.9 % IV INTRAPROCEDURE | given by | 09/05/19 | | | | | CONTINUOUS PRN, Starting Fri | | 14 3:20 | | | | | 09/04/13 at 1317, Until Fri | anesthes | PM PDT | | | | | 09/04/13 at 1754 | iology | | | | | + + + +---+---+---+ +---------+ +---+---+---+ | New Bag | 09/05/19 | | | | | | 14 1:17 | | | | | | PM PDT | | | | +---------+ +---+---+---+ +---+---+ | | | +---+---+ + + + + +-------+---+ | norepinephrine in NaCl 0.9% IV | Restarte | 09/05/19 | 0.01 | 1.79 | | | infusion 8 mg/250 mL (0.032 | d | 14 5:03 | mcg/kg/m | mL/hr | | | mg/mL) intravenous, | | PM PDT | in | | | | INTRAPROCEDURE CONTINUOUS PRN, | | | | | | | Starting 09/04/13 at 1448, | | | | | | | Until 09/04/13 at 1754 | | | | | | + + + + +-------+---+ + + + +--------+---+ | Rate/Dose Change | 09/05/19 | 0.04 | 7.15 | | | | 14 4:46 | mcg/kg/m | mL/hr | | | | PM PDT | in | | | + + + +--------+---+ | Rate/Dose Change | 09/05/19 | 0.12 | 21.44 | | | | 14 4:27 | mcg/kg/m | mL/hr | | | | PM PDT | in | | | + + + +--------+---+ +---+---+ | | | +---+---+ + +-------+ +---------+---+---+ | phenylePHrine 100 mcg/mL | Given | 09/05/19 | 300 mcg | | | | injection (OR syringe) | | 14 3:13 | | | | | intravenous, INTRAPROCEDURE PRN, | | PM PDT | | | | | Starting Sat09/04/13 at 1406, | | | | | | | Until Sat09/04/13 at 1754 | | | | | | + +-------+ +---------+---+---+ +-------+ +---------+---+---+ | Given | 09/05/19 | 300 mcg | | | | | 14 3:11 | | | | | | PM PDT | | | | +-------+ +---------+---+---+ | Given | 09/05/19 | 300 mcg | | | | | 14 3:07 | | | | | | PM PDT | | | | +-------+ +---------+---+---+ +---+---+ | | | +---+---+ + + + + +--------+---+ | propofol (DIPRIVAN) injection | Rate/Dos | 09/05/19 | 75 | 42.89 | | | INTRAPROCEDURE CONTINUOUS PRN, | e Change | 14 5:52 | mcg/kg/m | mL/hr | | | Starting Sat09/04/13 at 1518, | | PM PDT | in | | | | Until Sat09/04/13 at 1754 | | | | | | + + + + +--------+---+ + + + +--------+---+ | Rate/Dose Change | 09/05/19 | 70 | 40.03 | | | | 14 5:47 | mcg/kg/m | mL/hr | | | | PM PDT | in | | | + + + +--------+---+ | Rate/Dose Change | 09/05/19 | 50 | 28.59 | | | | 14 5:23 | mcg/kg/m | mL/hr | | | | PM PDT | in | | | + + + +--------+---+ +---+---+ | | | +---+---+ + +-------+ +-------+---+---+ | propofol INTRAPROCEDURE PRN, | Given | 09/05/19 | 60 mg | | | | Starting 09/04/13 at 1341, | | 14 1:41 | | | | | Until 09/04/13 at 1754 | | PM PDT | | | | + +-------+ +-------+---+---+ +---+---+ | | | +---+---+ + +-------+ +-------+---+---+ | protamine injection | Given | 09/05/19 | 50 mg | | | | intravenous, INTRAPROCEDURE PRN, | | 14 5:12 | | | | | Starting Sat09/04/13 at 1655, | | PM PDT | | | | | Until 09/04/13 at 1754 | | | | | | + +-------+ +-------+---+---+ +-------+ +--------+---+---+ | Given | 09/05/19 | 350 mg | | | | | 14 4:55 | | | | | | PM PDT | | | | +-------+ +--------+---+---+ +---+---+ | | | +---+---+ + +-------+ +--------+---+---+ | rocuronium (ZEMURON) injection | Given | 09/05/19 | 100 mg | | | | INTRAPROCEDURE PRN, Starting Fri | | 14 1:41 | | | | | 09/04/13 at 1341, Until Fri | | PM PDT | | | | | 09/04/13 at 1754, Neuromuscular | | | | | | | block | | | | | | + +-------+ +--------+---+---+ +---+---+ | | | +---+---+ + +-------+ +---------+---+---+ | vasopressin (PITRESSIN) | Given | 09/05/19 | 2 Units | | | | injection INTRAPROCEDURE PRN, | | 14 5:47 | | | | | Starting 09/04/13 at 1500, | | PM PDT | | | | | Until 09/04/13 at 1754 | | | | | | + +-------+ +---------+---+---+ +-------+ +---------+---+---+ | Given | 09/05/19 | 1 Units | | | | | 14 5:05 | | | | | | PM PDT | | | | +-------+ +---------+---+---+ | Given | 09/05/19 | 2 Units | | | | | 14 4:39 | | | | | | PM PDT | | | | +-------+ +---------+---+---+ +---+---+ | | | +---+---+ documented in this encounter"
--- OUTSIDE RECORDS SUMMARY | ~2019-11-14 | XMS | Encounter Summary ---
Demographics + + + | Address | [address] | | | [place] [address] | + + + | Home Phone | | + + + | Preferred Language | Unknown | + + + | Marital Status | | + + + | Buddhism Affiliation | NRP | + + + | Race | or | + + + | Ethnic Group | Not or | + + + Author + + + | Author | [facility] | + + + | Organization | [facility] [employer] [facility] | + + + | Address | Unknown | + + + | Phone | Unavailable | + + + Support + + + + + | Name | Relationship | Address | Phone | + + + + + | Kim Sigo | ECON | [address] | | | | | [place] | | | | | [address] | | + + + + + | Key Escobedo | ECON | Unknown | | + + + + + | Cathleen Escobedo | ECON | Unknown | | + + + + + Care Team Providers + +------+ + | Care Mainspring Winder Name | Role | Phone | + +------+ + | Anupama Juárez | PCP | | + +------+ + Encounter Details +--------+ + + + + | Date | Type | Department | Care Team | Description | +--------+ + + + + | 09/21/ | 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 Detector Operator | Cardiothoracic | Chris Argueta, | Aortic aneurysm | | 2016 | | Surgery at [facility] | PA-C [address] | without rupture, | | | | [address] | [address] | unspecified portion | | | | Physician's | [place], [place] | of aorta (HCC) | | | | [place], [address] floor | [address] | (Primary Dx) | | | | [place], [place] | [phone] | | | | | [address] | | | | | | [phone] | | | +--------+ + + + [...] | 2019 | cyn | | [address] [facility] | | | | | | [address] | | | | | | [place], [place] | | | | | | [address] | | | | | | [phone] | | | | | | | | +--------+ + + + + documented as of this encounter Visit Diagnoses + + | Diagnosis | + + | Aortic aneurysm without rupture, unspecified portion of aorta (HCC) - Primary | + + documented in this encounter"
--- OUTSIDE RECORDS SUMMARY | ~2019-11-14 | XMS | Encounter Summary ---
Demographics + + + | Address | [address] | | | [place] [address] | + + + | Home Phone | | + + + | Preferred Language | Unknown | + + + | Marital Status | | + + + | Mu-Ism Affiliation | NRP | + + + | Race | or | + + + | Ethnic Group | Not or | + + + Author + + + | Author | [facility] | + + + | Organization | [facility] | + + + | Address | Unknown | + + + | Phone | Unavailable | + + + Support + + + + + | Name | Relationship | Address | Phone | + + + + + | Kim Sigo | ECON | [address] | | | | | [place] | | | | | [address] | | + + + + + | Key Escobedo | ECON | Unknown | | + + + + + | Cathleen Escobedo | ECON | Unknown | | + + + + + Care Team Providers + +------+ + | Care Vocal Artist Name | Role | Phone | + [...] [address] | | | | | | [place], [place] | | | | | | [address] | | | | | | [phone] | | | +--------+ + + + [...] Rd | | | | | | [place], [place] | | | | | | [address] | | | | | | [phone] | | | | | | | | +--------+ + + + + documented as of this encounter Visit Diagnoses Not on filedocumented in this encounter"
--- OUTSIDE RECORDS SUMMARY | ~2019-11-14 | XMS | Encounter Summary ---
Demographics + + + | Address | [address] | | | [place] [address] | + + + | Home Phone | | + + + | Preferred Language | Unknown | + + + | Marital Status | | + + + | Confucianism Affiliation | NRP | + + + | Race | or | + + + | Ethnic Group | Not or | + + + Author + + + | Author | [facility] [employer] [facility] | + + + | Organization | [facility] [employer] [facility] | + + + | Address | Unknown | + + + | Phone | Unavailable | + + + Support + + + + + | Name | Relationship | Address | Phone | + + + + + | Kim Sigo | ECON | [address] | | | | | [place] | | | | | [address] | | + + + + + | Key Escobedo | ECON | Unknown | | + + + + + | Cathleen Escobedo | ECON | Unknown | | + + + + + Care Team Providers + +------+ + | Care Quality Checker Name | Role | Phone | + [...] | | | [address] | [facility] | | | | | Physician's | [place], [place] | | | | | [place], [address] floor | [address] | | | | | [place], [place] | [phone] | | | | | [address] | | | | | | [phone] | | | +--------+ + + + [...] 2019 | cyn | | [address] | | | | | | [address] | | | | | | [place], [place] | | | | | | [address] | | | | | | [phone] | | | | | | | | +--------+ + + + + documented as of this encounter Visit Diagnoses Not on filedocumented in this encounter"
--- OUTSIDE RECORDS SUMMARY | ~2019-11-14 | XMS | Encounter Summary ---
Demographics + + + | Address | [address] | | | [place] [address] | + + + | Home Phone | | + + + | Preferred Language | Unknown | + + + | Marital Status | | + + + | Christianity Affiliation | Unknown | + + + | Race | Unknown | + + + | Ethnic Group | Unknown | + + + Author + + + | Author | [facility] | | | and [place] | + + + | Organization | [facility] | | [...] [place] | | | | | [address] | | + + + + + Care Team Providers + +------+ + | Care Purchasing Intern Name | Role | Phone | + +------+ + | Raiza Slaughter PA-C | PCP | | + +------+ + Reason for Referral Evaluate & Treat (Urgent) +--------+ + + + + + | Status | Reason | Specialty | Diagnoses / | Referred By | Referred To | | | | | Procedures | Contact | Contact | +--------+ + + + + + | Closed | Specialty | Cardiothoraci | Diagnoses | | [place], | | | Services | c Surgery | Cancer of | Abigail, | MD Chad | | | Required | | lower lobe | Rangaswamy | [address] | | | | | of left lung | MD Larry [address] | [address] | | | | | (HCC) | [address] | [place], [place] | | | | | | [address]VE | [address] Phone: | | | | | | [place], | [phone] | | | | | | [place] [address] | Fax: | | | | | | Phone: | [phone] | | | | | | [phone] | | | | | | | Fax: | | | | | | | [phone] | | +--------+ + + + + + Reason for Visit + + + | Reason | Comments | + + + | Follow-up | | + + + Evaluate & [...] | Mass of | MD Iris | Abigail, | | Required | Required | | left lung | [address] | Jennifer Juarez, | | | | | Onc/New/Lung | [address] | [address] | | | | | | [address] | [address] | | | | | | [place], [place] | [place] | | | | | | [address] | [place] [address] | | | | | | Phone: | Phone: | | | | | | [phone] | [phone] | | | | | | Fax: | Fax: | | | | | | [phone] | [phone] | + + + + + + + Encounter Details +--------+---------+ + + + | Date | Type | Department | Care Team | Description | +--------+---------+ + + + | 09/30/ | Office | [facility] | Abigail, | Cancer of lower lobe | | 2019 | Visit | HEMATOLOGY AND | Jennifer Juarez MD | of left lung (HCC) | | | | ONCOLOGY [address] | [address] | (Primary Dx) | | | | [address] | [place] | | | | | [place] | [address] | | | | | [address] | | | | | | [phone] | | | +--------+---------+ + + + [...] + + + | Blood Pressure | 136/74 | 10/01/2019 1:43 PM | | | | | PDT | | + + + + + | Pulse | 66 | 10/01/2019 1:43 PM | | | | | PDT | | + + + + + | Temperature | 36.2 C (97.2 F) | 10/01/2019 1:43 PM | | | | | PDT | | + + + + + | Respiratory Rate | 15 | 10/01/2019 1:43 PM | | | | | PDT | | + + + + + | Oxygen Saturation | 98% | 10/01/2019 1:43 PM | | | | | PDT | | + + + + + | Inhaled Oxygen | - | - | | | Concentration | | | | + + + + + | Weight | 90.7 kg (200 lb) | 10/01/2019 1:43 PM | | | | | PDT | | + + + + + | Height | 167.6 cm (5' 6") | 10/01/2019 1:43 PM | | | | | PDT | | + + + + + | Body Mass Index | 32.28 | 10/01/2019 1:43 PM | | | | | PDT | | + + + + + documented in this encounter Patient Instructions Patient Instructions Jennifer Hayes MD - 10/01/2019 1:45 PM PDT1. Left lung ca ncer 2. Referred to get lung surgery to cure the cancer 3. I will see you after the surgery to check if you need any additional chemotherapy or rad iation therapy documented in this encounter Progress Notes Jennifer Hayes MD - 10/01/2019 1:45 PM PDTFormatting of this note might be dif ferent from the original. [facility] Hematology & Oncology Oncology Progress Note Patient Name: MARTITA ESCOBEDO III Date of : 1955 Age: 64 y.o. PCP: Raiza Slaughter PA-C History of Present Illness Mr. Martita Escobedo III is a pleasant 64 y.o. 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 PET CT scan performed on 09/10/2019 evaluation of left lower lobe lung lesion showed superio r segment left lower lobe mass measuring about 18 x 15 mm and with no FDG uptake. This is p robably suspicious for guarding but cannot exclude a low-grade malignancy. Did have prior history of smoking but quit many years ago. He is now smoking marijuana abo ut 1 cigarette a day. Reason for Office Visit/Interval History Initially saw him on 09/18/2019 and recommended biopsy of the lung lesion. Patient comes her e today to discuss results of biopsy and further management plan. Cancer Stage Cancer Staging No matching staging [...] Date ABDOMEN SURGERY CARPAL TUNNEL RELEASE COLONOSCOPY LUNG BIOPSY 09/23/2019 Procedure: CT GUIDED BIOPSY LUNG OR MEDIASTINUM - Location: [facility] CT open heart 2014 OTHER SURGICAL HISTORY right [...] file Gets together: Not on file Attends sabianism service: Not on file Active member of [...] medical history above reviewed and updated on 10/01/2019 Medications Current Outpatient Medications Medication Sig Dispense Refill aspirin 81 MG EC tablet Take 81 mg by mouth daily with breakfast. atorvaSTATin (LIPITOR) 10 mg tablet Take 10 mg by mouth nightly. hydroCHLOROthiazide 25 mg tablet Take 25 mg by mouth daily. irbesartan (AVAPRO) 300 mg tablet Take 1 tablet by mouth nightly. 90 tablet 2 methocarbamol (ROBAXIN) 500 mg tablet Take 500 mg by mouth every 6 (six) hours as neede d. metoprolol tartrate (LOPRESSOR) 100 mg tablet Take 100 mg by mouth 2 (two) times daily. tiZANidine (ZANAFLEX) 4 mg tablet Take 4 mg by mouth every 6 hours as needed. No current facility-administered medications for this visit. Medications reviewed and updated on 10/01/2019 Review of Systems Review of Systems Constitutional: Negative for fatigue, fever and unexpected weight change. HENT: Negative for sore throat and trouble swallowing. Eyes: Negative for photophobia and visual disturbance. Respiratory: Negative for cough and shortness of breath. Cardiovascular: Negative for chest pain. Gastrointestinal: Negative for diarrhea, nausea and vomiting. Skin: Negative for rash. Allergic/Immunologic: Negative for immunocompromised state. Neurological: Negative for dizziness, seizures and headaches. Hematological: Negative for adenopathy. Does not bruise/bleed easily. Psychiatric/Behavioral: The patient is nervous/anxious. Physical Exam BP 136/74 | Pulse 66 | Temp 36.2 C (97.2 F) (Tympanic) | Resp 15 | Ht 1.676 m (5' 6 ") | Wt 90.7 kg (200 lb) | SpO2 98% | BMI 32.28 kg/m ECOG Performance Status: 1 Physical Exam Physical exam not performed today. See exam from couple of weeks ago. Labs and Imaging Admission on 09/23/2019, Discharged on 09/23/2019 Component Date Value Ref Range Status WBC 09/23/2019 11.50* 3.80 - 11.00 K/uL Final RBC 09/23/2019 4.81 4.20 - 5.70 M/uL Final Hemoglobin 09/23/2019 15.1 13.2 - 17.0 g/dL Final Hematocrit 09/23/2019 45.6 39.0 - 50.0 % Final MCV 09/23/2019 94.8 80.0 - 100.0 fl Final MCH 09/23/2019 31.4 27.0 - 34.0 pg Final MCHC 09/23/2019 33.1 32.0 - 35.5 g/dL Final RDW-SD 09/23/2019 47.1 37 - 53 fl Final Platelet Count 09/23/2019 225 150 - 400 K/uL Final MPV 09/23/2019 11.1 fl Final NO NORMAL RANGE ESTABLISHED Diff Type 09/23/2019 AUTOMATED Final % nRBC 09/23/2019 0.0 0 /100WBC Final % Neutrophils 09/23/2019 51.20 % Final IMMATURE GRANULOCYTE 09/23/2019 0.30 % Final % Lymphocytes 09/23/2019 41.70 % Final Monocyte % 09/23/2019 5.70 % Final Eosinophils % 09/23/2019 0.80 % Final Basophils % 09/23/2019 0.30 % Final Neutrophils, Absolute 09/23/2019 5.88 1.90 - 7.40 K/uL Final IMMATURE GRANS AB 09/23/2019 0.04 0.00 - 0.07 K/uL Final NOTE NEW REFERENCE RANGE Absolute Lymphocytes 09/23/2019 4.80* 1.00 - 3.90 K/uL Final Absolute Monocytes 09/23/2019 0.66 0.00 - 0.80 K/uL Final Eosinophils, Absolute 09/23/2019 0.09 0.00 - 0.50 K/uL Final Basophils, Absolute 09/23/2019 0.03 0.00 - 0.10 K/uL Final Testing performed at [facility];[address] [place] [id number] INR 09/23/2019 1.0 Final Comment: REFERENCE RANGE: 0.9 - 1.2 NON-ANTICOAGULATED 2.0 - 3.0 ALL OTHER THERAPEUTIC INDICATIONS 2.5 - 3.5 MECHANICAL HEART VALVES, RECURRENT OR SYSTEMIC EMBOLISM Testing performed at [facility];[address] [place] [id number] Hospital Outpatient Visit on 09/10/2019 Component Date Value Ref Range Status Glucose, POC 09/10/2019 106* 65 - 99 mg/dL Final Testing performed at [facility];[address] [place] [id number] Assessment Mr. Martita Escobedo III is a pleasant 64 y.o. male with history of hypertension, acending aort ic aneurysm rupture, and status post surgical repair in 2013, with newly diagnosed left lowe r lobe lung cancer clinical stage IA (T1b N0 M0) for further management Plan 1. 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 Reviewed at this time he has likely stage I lung cancer with PET CT scan negative for any distant metastatic disease or mediastinal lym phadenopathy. At this time recommend surgical resection. I reviewed his case with Dr. Chad Monroe from cardiothoracic surgery who will plan to see him as soon as possible with a yajaira n for surgical resection. Referral placed. 2. Also reviewed regarding adjuvant chemotherapy or radiation therapy if indicated after t he surgical resection. Briefly reviewed management of stage I, stage II lung cancers on sandhya veillance. I will follow-up after the surgery to discuss further management/surveillance. Patient in agreement with the care plan. 3. Also, he has a large left suprascapular area subcutaneous welling, possibly lipoma note d on the CT scan. Patient unaware of this but palpable on exam. Referral to general surger y for consideration of surgical excision was already placed during prior visit and follow-up on this as indicated. All the patient's questions were answered to his satisfaction. Patient had many questions regarding management of lung cancer and all of his questions have been answered in detail. Greater than 25 minutes were spent in [id number]-[id number] encounter with review of results, residential substance abuse counselor ing, coordination of care, and CPOE. More than 50% of that time was spent counseling and demo coordinator rdination of care. Jennifer Hayes MD [facility] Hematology & Oncology 10/01/2019 Portions of this chart may have been created with voice recognition software. Occasional wr remington-word or "sound-alike" substitutions may have occurred, even after review, due to the inh erent limitations of voice recognition software. Please read the chart carefully and recogni ze, using context, where these substitutions have occurred. Personal communication is reques matthew for any clarifications. 20 2:39 PM PDTdocumented in this encounter Plan of Treatment +--------+---------+ + + + | Date | Type | Specialty | Care Team | Description | +--------+---------+ + + + | 01/26/ Office | Cardiology | Iris Malone, | | | 2019 | Visit | | MD Erasmo ESCOTO | | | | | | [place], [place] | | | | | | [address] | | | | | | | | +--------+---------+ + + + + + +--------+ + + | Name | Type | Priori | Associated Diagnoses | Order Schedule | | | | ty | | | + + +--------+ + + | Ambulatory referral | Outpatient | TIGIST | Cancer of lower | Ordered: 10/01/2019 | | to [facility] | Referral | | lobe of left lung | | | Cardiothoracic | | | (HCC) | | | Surgery | | | | | + + +--------+ + + documented as of this encounter Visit Diagnoses + + | Diagnosis | + + | Cancer of lower lobe of left lung (HCC) - Primary | + + documented in this encounter
--- OUTSIDE RECORDS SUMMARY | ~2019-11-14 | XMS | Encounter Summary ---
Demographics + + + | Address | [address] | | | [place] [address] | + + + | Home Phone | | + + + | Preferred Language | Unknown | + + + | Marital Status | | + + + | Rastafari Affiliation | NRP | + + + | Race | or | + + + | Ethnic Group | Not or | + + + Author + + + | Author | [facility] | + + + | Organization | [facility] | + + + | Address | Unknown | + + + | Phone | Unavailable | + + + Support + + + + + | Name | Relationship | Address | Phone | + + + + + | Kim Sigo | ECON | [address] | | | | | [place] | | | | | [address] | | + + + + + | Key Escobedo | ECON | Unknown | | + + + + + | Cathleen Escobedo | ECON | Unknown | | + + + + + Care Team Providers + +------+ + | Care Performance Manager Name | Role | Phone | + +------+ + | Anupama Juárez | PCP | | + +------+ + Encounter Details +--------+ + + + + | Date | Type | Department | Care Team | Description | +--------+ + + + + | 10/27/ | Procedure | [address] Op [id number] | | | | 2020 | Pass | [facility] | | | | | [facility] | | | | | | Desk Located on the | | | | | | 9th floor | | | | | | [place], [place] | | | | | | [address] | | | +--------+ + + + [...] Rd | | | | | | [place], [place] | | | | | | [address] | | | | | | [phone] | | | | | | | | +--------+ + + + + documented as of this encounter Visit Diagnoses Not on filedocumented in this encounter"
--- OUTSIDE RECORDS SUMMARY | ~2019-11-14 | XMS | Encounter Summary ---
Demographics + + + | Address | [address] | | | [place] [address] | + + + | Home Phone | | + + + | Preferred Language | Unknown | + + + | Marital Status | | + + + | Adventism Affiliation | NRP | + + + | Race | or | + + + | Ethnic Group | Not or | + + + Author + + + | Author | [facility] [place] [facility] | + + + | Organization | [facility] [place] [facility] | + + + | Address | Unknown | + + + | Phone | Unavailable | + + + Support + + + + + | Name | Relationship | Address | Phone | + + + + + | Kim Sigo | ECON | [address] | | | | | [place] | | | | | [address] | | + + + + + | Key Escobedo | ECON | Unknown | | + + + + + | Cathleen Escobedo | ECON | Unknown | | + + + + + Care Team Providers + +------+ + | Care Chart Computer Name | Role | Phone | + [...] | | | | | Physician's | [place], [place] | | | | | [place], [address]nd floor | [address] | | | | | [place], [place] | [phone] | | | | | [address] | | | | | | [phone] | | | +--------+ + + + [...] [address] | | | | | | [place], [place] | | | | | | [address] | | | | | | [phone] | | | | | | | | +--------+ + + + + documented as of this encounter Visit Diagnoses Not on filedocumented in this encounter"
--- OUTSIDE RECORDS SUMMARY | ~2019-11-14 | XMS | Encounter Summary ---
Demographics + + + | Address | [address] | | | [place] [address] | + + + | Home Phone [...] + + + | Author | [facility] | + + + | Organization | [facility] | + + + | Address | Unknown | + + + | Phone | Unavailable | + + + Support + + + + + | Name | Relationship | Address | Phone | + + + + + | Kim Sigo | ECON | [address] | | | | | [place] | | | | | [address] | | + + + + + | Key Escobedo | ECON | Unknown | | + + + + + | Cathleen Escobedo | ECON | Unknown | | + + + + + Care Team Providers + +------+ + | Care Mattress And Boxsprings Supervisor Name | Role | Phone | + +------+ + | Anupama Juárez | PCP | | + +------+ + Encounter Details +--------+ + + + + | Date | Type | Department | Care Team | Description | +--------+ + + + + | 10/31/ | Pharmacy | Outpatient Retail | | | | 2019 | Visit | [facility] | | | | | | [address] | | | | | | [address] [place], [place] | | | | | | [address] | | | | | | [phone] | | | +--------+ + + + [...] | 2019 | cyn | | [address] [facility] | | | | | | [address] | | | | | | [place], [place] | | | | | | [address] | | | | | | [phone] | | | | | | | | +--------+ + + + + documented as of this encounter Visit Diagnoses Not on filedocumented in this encounter"
--- OUTSIDE RECORDS SUMMARY | ~2019-11-14 | XMS | Encounter Summary ---
Demographics + + + | Address | [address] | | | [place] [address] | + + + | Home Phone | | + + + | Preferred Language | Unknown | + + + | Marital Status | | + + + | Lutheran Affiliation | NRP | + + + | Race | or | + + + | Ethnic Group | Not or | + + + Author + + + | Author | Formerly [facility] | + + + | Organization | [facility] | + + + | Address | Unknown | + + + | Phone | Unavailable | + + + Support + + + + + | Name | Relationship | Address | Phone | + + + + + | Kim Sigo | ECON | [address] | | | | | [place] | | | | | [phone] | | + + + + + | Key Escobedo | ECON | Unknown | | + + + + + | Cathleen Escobedo | ECON | Unknown | | + + + + + Care Team Providers + +------+ + | Care N[employer] Distributor Name | Role | Phone | + [...] | RECONSTRUCTION; | | | | Rd [facility] | [place] [address] | Pathology x1 (1 | | | | Hospital Admitting | [phone] | ROGERIO) | | | | Desk Located on the | | | | | | 9th floor | | | | | | [place], [place] | | | | | | [phone] | | | +--------+---------+ + + + [...] a 58 yo male was transferred from [facility] on 09/01 for treatment of ne wly diagnosed large ascending aortic aneurysm. He was admitted to the ICU for tight blood pr essure control. He was evaluated by cardiac surgery and consented for aortic aneurysm repair . He was then taken to the OR on 09/04. He did well in surgery and was transferred back to [facility] ICU to be weaned from the ventilator. [...] Maryana Jama PA-C Division of Cardiothoracic Surgery Formerly [facility] Mail Code [id number] [id number] [facility] [phone] documented in this en counter Discharge Instructions Instructions Bobo Ramsey - 09/09/2013Patient Education Materials: aneurysm repair; p ost-op Additional Instructions: sternal/wound precautions Discharge Nurse: Bobo Ramsey Date: 09/09/2013 Discharge Time: 11:18 AM AttachmentsThe following attachments cannot be sent through Care Everywhere.ANEURYSM: THORA CIC AORTIC : POSTOP (URUGUAYAN)documented in this encounter Medications at Time of [...] non-focal s1-s2 tachy CTA bilateral Soft, non-tender [place], warm, dry Sternal incision is c,d,i Lab [...] x-ray: pending Assessment/Plan: 58 yo man from [facility], admitted for large ascending aortic aneurysm repair. [...] Deconditioned-- PT/OT (Electronically Signed) Ronald Cook PA-C [facility] Cardiac Surgery onald Cook - 09/07/2013 7:5 [...] bilateral s1-s2 RRR Sternal incision is c,d,i [place], warm, dry No peripheral edema Alert and [...] hypoexpanded lungs. Assessment/Plan: 58 yo man from [facility], admitted for large ascending aortic aneurysm repair. [...] Deconditioned-- PT/OT (Electronically Signed) Ronald Cook PA-C [facility] Cardiac Surgery Chaitanya Cho MD - 4 2:17 PM PDT [facility] DAILY Attending PROGRESS NOTE Attending Pager: [phone] I have personally reviewed history and physical with the [facility] housestaff and have indepe ndently confirmed findings. I agree with the assessment and have participated in plan. Off gtts. No interval concerns of note. Dx: 1)Ascending aortic aneurysm-S/P repair 2)Essemtial hypertension 3)Chronic pain 4)Impaired glucose tolerance by history 5)Agitation-Resolved Plan:Increasing beta alexy, etc. Ongoing management of pain and glucose> Stable for floor Chaitanya Wallace MD Division Pulmonary-Critical Care Medicine Mailcode N-67 Pager [phone]/ [facility] DEPARTMENT: [facility], [facility]- [phone] Place of Service: - Date of Service: 09/06/2013 CSN: [id number] Modifiers:GC Resident Involved: yes Suggested CPT: 68139 Subsequent Visit Prob Focused/Low Complexity 15 min Martin Zee PA-C - 09/06/2013 7:44 AM PDT [facility] DAILY PROGRESS NOTE (PA) Team Pager: [phone] Attendin Author: MARTIN HOUSE PA-C Attending Systems Software Engineer: Operating Surgeon: MD Destin Garcia MD POD# 2 Procedure: Ascending Aortic Reconstruction with 30 mm Dacron ICU day # 6 HPI: Richard Escobedo is a 58 y.o. male with a h/o HTN, HLD who is transferred from outside [facility] after an ascending aortic aneurysm [...] discussed with Dr. Wallace. CARLITOS Yu PA-C [facility] DEPARTMENT: [facility] ICU CARDIAC [[id number]] Place of Service:- Inpatient Date of Service: 09/06/13 CSN: [id number] Suggested Modifier: None Suggested CPT: TO DRUM HANDLER Zahra Levine MD - 09/05/2013 8:08 PM PDT [facility] ATTENDING TOUR GUIDE DAILY PROGRESS NOTE Team Pager: [phone] Attending Pager: [phone] Author: ZAHRA COOL MD Care plan d/w [...] current care in ICU increased BB DC [place] Gentle diuresis DISPO: critical ill in ICU [...] is critically ill. Zahra Cool MD PhD Joint Terminal Attack Controller Department of Anesthesiology and Perioperative Medicine [facility] DEPARTMENT: [facility] ICU CARDIAC [[id number]] Place of Service:- Inpatient Date of Service: 09/05/13 CSN: [id number] Suggested Modifier: None Suggested CPT: TO DRUM HANDLER Chaitanya Cho MD - 09/05/2013 3:44 PM PDT [facility] DAILY Attending PROGRESS NOTE Attending Pager: [phone] I have personally reviewed history and physical with the [facility] housestaff and have indepe ndently confimred findings. I agree with the assessment and have participated in plan. No significant events overnight.following extubation. On nicardipine gtt. Dx: 1)Ascending aortic aneurysm-S/P repair 2)Essemtial hypertension 3)Chronic pain 4)Impaired glucose tolerance by history 5)Agitation-Precipitant?-Improved Plan:adding in beta alexy with downward titration of nicadripine as tolerated Chaitanya Wallace MD Division Pulmonary-Critical Care Medicine Mailcode UHN-67 Pager [phone]/ [facility] DEPARTMENT: [facility]- [phone] Place of Service: - Date of Service: 09/05/2013 CSN: [id number] Modifiers:GC Resident Involved: yes Suggested CPT: 68519 Subsequent Visit Detailed/High complexity 35 min Martin Zee PA-C - 09/05/2013 9:14 AM PDT [facility] DAILY PROGRESS NOTE (CARLOS MANUEL) Team Pager: [phone] Attendin Author: MARTIN HOUSE PA-C Attending Systems Software Engineer: Operating Surgeon: MD Destin Garcia MD POD# 1 Procedure: Ascending Aortic Reconstruction with 30 mm Dacron ICU day # 5 HPI: Richard Escobedo is a 58 y.o. male with a h/o HTN, HLD who is transferred from outside [facility] after an ascending aortic aneurysm [...] Dr. Wallace. CARLITOS Yu PA-C [facility] DEPARTMENT: [facility] ICU CARDIAC [[id number]] Place of Service:- Inpatient Date of Service: 09/05/13 CSN: [id number] Suggested Modifier: None Suggested CPT: TO DRUM HANDLER Zahra Levine MD - 09/04/2013 8:48 PM PDT [facility] ATTENDING TOUR GUIDE DAILY PROGRESS NOTE Team Pager: [phone] Attending Pager: [phone] Author: ZAHRA COOL MD ATTESTATION: Seen with [...] is critically ill. Zahra Cool MD PhD Joint Terminal Attack Controller Department of Anesthesiology and Perioperative Medicine [facility] DEPARTMENT: [facility] ICU CARDIAC [[id number]] Place of Service:- Inpatient Date of Service: 09/04/13 CSN: [id number] Suggested Modifier: None Suggested CPT: TO DRUM HANDLER yshoshana, Teresa Cartwright - 09/04/2013 9:43 AM PDT [facility] DAILY PROGRESS NOTE (PA) Team Pager: [phone] Attendin Author: MARTIN HOUSE PA-C Attending Systems Software Engineer: Operating Surgeon: MD Destin Garcia MD ICU [...] discussed with Dr. Wallace. CARLITOS Yu PA-C [facility] DEPARTMENT: [facility] ICU CARDIAC [[id number]] Place of Service:- Inpatient Date of Service: 09/03/13 CSN: [id number] Suggested Modifier: None Suggested CPT: TO DRUM HANDLER Chaitanya Cho MD - 09/04/2013 8:00 AM PDT [facility] DAILY Attending PROGRESS NOTE Attending Pager: [phone] Date:09/04/2013 Author: CHAITANYA WALLACE MD Primary Service [...] this basename: FIO2, PH, PCO2, PO2, HCO3, [id number], [id number], ABGEXECESS, in the last 72 hours GI: [...] Wallace MD Division Pulmonary-Critical Care Medicine Mailcode [facility]-67 Pager [phone]/ [facility] DEPARTMENT: [facility] [phone] Place of Service: Date of Service: 09/04/2013 CSN: [id number] Modifiers:GC Resident Involved: No Suggested CPT: 88353 Subsequent Visit Exp Prob Foc/Mod Complexity 25 min Mckayla Snyder MD - 09/03/2013 9:07 PM [id number] NIGHT TOUR GUIDE PROGRESS NOTE Team Pager: [phone] Attendin Events of the day, patient condition, and plan reviewed with the day team. Please see their note for details. I have examined the patient and reviewed the relevant data. HPI: 58 yo male with HTN, HL and borderline DM, now with ascending aortic aneurysm diagnosed aft er presenting to referring hospital with dyspnea. Transferred to [facility] on 09/01/13 for further management. Arrived with [...] this critically ill patient. Jihan Mendoza MD [employer] Department of Anesthesiology and Nicolette-Operative Medicine Critical Care [facility] DEPARTMENT: [facility] ICU CARDIAC [[id number]] Place of Service:73281- Inpatient Date of Service: 09/03/2013 CSN: [id number] Suggested Modifier: Suggested CPT: TO DRUM HANDLER cGirr, Alex Echols DO - 09/03/2013 7:56 AM PDT [facility] DAILY PROGRESS NOTE (Resident) Team Pager: [phone] Attendin Author: ALEX RIOS DO Attending Systems Software Engineer: Operating Surgeon: MD Destin Garcia MD ICU [...] Cho MD - 09/03/2013 7:54 AM PDT [facility] DAILY Attending PROGRESS NOTE Attending Pager: [phone] I have personally reviewed history and physical with the [facility] housestaff and have indepe ndently examined [...] Wallace MD Division Pulmonary-Critical Care Medicine Mailcode [facility]-67 Pager [phone]/ [facility] DEPARTMENT: [facility] [phone] Place of Service: [facility] Date of Service: 09/03/2013 CSN: [id number] Modifiers:GC Resident Involved: yes Suggested CPT: 86773 Critical Care, Initial 30-74 minutes Total Critical Care Time:32 minutes Mckayla Snyder MD - 09/02/2013 6:42 PM [id number] NIGHT TOUR GUIDE PROGRESS NOTE Team Pager: [phone] Attendin Events of the day, patient condition, and plan reviewed with the day team. Please see their note for details. I have examined the patient and reviewed the relevant data. HPI: 58 yo male with HTN, HL and borderline DM, now with ascending aortic aneurysm diagnosed aft er presenting to referring hospital with dyspnea. Transferred to [facility] on 09/01/13 for further management. Arrived with [...] risk of aortic ruptur caio Mendoza MD [employer] Department of Anesthesiology and Nicolette-Operative Medicine Critical Care [facility] DEPARTMENT: [facility] ICU CARDIAC [[id number]] Place of Service:- Inpatient Date of Service: 09/02/2013 CSN: [id number] Suggested Modifier: Suggested CPT: TO DRUM HANDLER Kemi Damon - 10:45 AM PDTTransthoracic echocardiogram completed. Final report to follow. Chaitanya Cho MD - 2013 7:54 AM PDT [facility] DAILY Attending PROGRESS NOTE Attending Pager: [phone] I have personally reviewed history and physical with the [facility] housestaff and have indepe ndently examined [...] Division Pulmonary-Critical Care Medicine Mailcode N-67 Pager [phone]/ [facility] DEPARTMENT: [facility], [facility]- [phone] Place of Service: IP - Date of Service: 09/02/2013 CSN: [id number] Modifiers:GC Resident Involved: yes Suggested CPT: 39255 Subsequent Visit Detailed/High complexity 35 min lex Rios DO - 09/02/2013 7:51 AM PDT [facility] DAILY PROGRESS NOTE (Resident) Team Pager: [phone] Attendin Author: ALEX RIOS DO Attending Systems Software Engineer: Operating Surgeon: MD Destin Garcia MD ICU [...] TBD. 24 Hour Events: CT reviewed by [facility] radiology. Per verbal report: no involvement of [...] | 2019 | cheduled | | [address] [facility] | | | | | | [address] | | | | | | [place], [place] | | | | | | [address] | | | | | | [phone] | | | | | | | [...] the | | | | PDT | ([facility]) | results section. | + +--------+ + + + | SODIUM, POC | Routin | 09/04/2013 | Aortic aneurysm | Results for this | | | e | 5:09 PM | without rupture | procedure are in the | | | | PDT | ([facility]) | results section. | + +--------+ + + + | POTASSIUM, POC | Routin | 09/04/2013 | Aortic aneurysm | Results for this | | | e | 5:09 PM | without rupture | procedure are in the | | | | PDT | ([facility]) | results section. | + +--------+ + + + | GLUCOSE, POC | Routin | 09/04/2013 | Aortic aneurysm | Results for this | | | e | 5:09 PM | without rupture | procedure are in the | | | | PDT | ([facility]) | results section. | + +--------+ + + + | ARTERIAL BLOOD GAS, | Routin | 09/04/2013 | Aortic aneurysm | Results for this | | POC | e | 5:09 PM | without rupture | procedure are in the | | | | PDT | ([facility]) | results section. | + +--------+ + [...] the | | | | PDT | ([facility]) | results section. | + +--------+ + + + | HEMOGLOBIN-COOX, POC | Routin | 09/04/2013 | Aortic aneurysm | Results for this | | | e | 4:45 PM | without rupture | procedure are in the | | | | PDT | ([facility]) | results section. | + +--------+ + + + | SODIUM, POC | Routin | 09/04/2013 | Aortic aneurysm | Results for this | | | e | 4:45 PM | without rupture | procedure are in the | | | | PDT | ([facility]) | results section. | + +--------+ + + + | POTASSIUM, POC | Routin | 09/04/2013 | Aortic aneurysm | Results for this | | | e | 4:45 PM | without rupture | procedure are in the | | | | PDT | ([facility]) | results section. | + +--------+ + + + | GLUCOSE, POC | Routin | 09/04/2013 | Aortic aneurysm | Results for this | | | e | 4:45 PM | without rupture | procedure are in the | | | | PDT | ([facility]) | results section. | + +--------+ + + + | ARTERIAL BLOOD GAS, | Routin | 09/04/2013 | Aortic aneurysm | Results for this | | POC | e | 4:45 PM | without rupture | procedure are in the | | | | PDT | ([facility]) | results section. | + +--------+ + + + | CHLORIDE, POC | Routin | 09/04/2013 | Aortic aneurysm | Results for this | | | e | 4:45 PM | without rupture | procedure are in the | | | | PDT | ([facility]) | results section. | + +--------+ + + + | ALEXANDRA IONIZED CA, POC | Routin | 09/04/2013 | Aortic aneurysm | Results for this | | | e | 4:45 PM | without rupture | procedure are in the | | | | PDT | ([facility]) | results section. | + +--------+ + + + | LACTATE (ART), POC | Routin | 09/04/2013 | Aortic aneurysm | Results for this | | ISTAT | e | 4:15 PM | without rupture | procedure are in the | | | | PDT | ([facility]) | results section. | + +--------+ + + + | HEMOGLOBIN-COOX, POC | Routin | 09/04/2013 | Aortic aneurysm | Results for this | | | e | 4:15 PM | without rupture | procedure are in the | | | | PDT | ([facility]) | results section. | + +--------+ + + + | SODIUM, POC | Routin | 09/04/2013 | Aortic aneurysm | Results for this | | | e | 4:15 PM | without rupture | procedure are in the | | | | PDT | ([facility]) | results section. | + +--------+ + + + | POTASSIUM, POC | Routin | 09/04/2013 | Aortic aneurysm | Results for this | | | e | 4:15 PM | without rupture | procedure are in the | | | | PDT | ([facility]) | results section. | + +--------+ + + + | GLUCOSE, POC | Routin | 09/04/2013 | Aortic aneurysm | Results for this | | | e | 4:15 PM | without rupture | procedure are in the | | | | PDT | ([facility]) | results section. | + +--------+ + + + | ARTERIAL BLOOD GAS, | Routin | 09/04/2013 | Aortic aneurysm | Results for this | | POC | e | 4:15 PM | without rupture | procedure are in the | | | | PDT | ([facility]) | results section. | + +--------+ + + + | YOLANDE POC | Routin | 09/04/2013 | Aortic aneurysm | Results for this | | | e | 4:15 PM | without rupture | procedure are in the | | | | PDT | ([facility]) | results section. | + +--------+ + + + | ALEXANDRA ROBERT YOUNG POC | Routin | 09/04/2013 | Aortic aneurysm | Results for this | | | e | 4:15 PM | without rupture | procedure are in the | | | | PDT | ([facility]) | results section. | + +--------+ + + + | BECKY (SERJIO) POC | Routin | 09/04/2013 | Aortic aneurysm | Results for this | | ISTAT | e | 3:59 PM | without rupture | procedure are in the | | | | PDT | ([facility]) | results section. | + +--------+ + + + | HEMOGLOBIN-ANA POC | Routin | 09/04/2013 | Aortic aneurysm | Results for this | | | e | 3:59 PM | without rupture | procedure are in the | | | | PDT | ([facility]) | results section. | + +--------+ + + + | SODIUM, POC | Routin | 09/04/2013 | Aortic aneurysm | Results for this | | | e | 3:59 PM | without rupture | procedure are in the | | | | PDT | ([facility]) | results section. | + +--------+ + + + | POTASSIUM, POC | Routin | 09/04/2013 | Aortic aneurysm | Results for this | | | e | 3:59 PM | without rupture | procedure are in the | | | | PDT | ([facility]) | results section. | + +--------+ + + + | GLUCOSE, POC | Routin | 09/04/2013 | Aortic aneurysm | Results for this | | | e | 3:59 PM | without rupture | procedure are in the | | | | PDT | ([facility]) | results section. | + +--------+ + + + | ARTERIAL BLOOD GAS, | Routin | 09/04/2013 | Aortic aneurysm | Results for this | | POC | e | 3:59 PM | without rupture | procedure are in the | | | | PDT | ([facility]) | results section. | + +--------+ + [...] the | | | | PDT | ([facility]) | results section. | + +--------+ + + + | HEMOGLOBIN-ANA POC | Routin | 09/04/2013 | Aortic aneurysm | Results for this | | | e | 3:33 PM | without rupture | procedure are in the | | | | PDT | ([facility]) | results section. | + +--------+ + + + | SODIUM POC | Routin | 09/04/2013 | Aortic aneurysm | Results for this | | | e | 3:33 PM | without rupture | procedure are in the | | | | PDT | ([facility]) | results section. | + +--------+ + + + | POTASSIUM, POC | Routin | 09/04/2013 | Aortic aneurysm | Results for this | | | e | 3:33 PM | without rupture | procedure are in the | | | | PDT | ([facility]) | results section. | + +--------+ + + + | GLUCOSE, POC | Routin | 09/04/2013 | Aortic aneurysm | Results for this | | | e | 3:33 PM | without rupture | procedure are in the | | | | PDT | ([facility]) | results section. | + +--------+ + + + | ARTERIAL BLOOD GAS, | Routin | 09/04/2013 | Aortic aneurysm | Results for this | | POC | e | 3:33 PM | without rupture | procedure are in the | | | | PDT | ([facility]) | results section. | + +--------+ + + + | CHLORIDE, POC | Routin | 09/04/2013 | Aortic aneurysm | Results for this | | | e | 3:33 PM | without rupture | procedure are in the | | | | PDT | ([facility]) | results section. | + +--------+ + + + | ALEXANDRA IONIZED CA, POC | Routin | 09/04/2013 | Aortic aneurysm | Results for this | | | e | 3:33 PM | without rupture | procedure are in the | | | | PDT | ([facility]) | results section. | + +--------+ + + + | LACTATE (ART), POC | Routin | 09/04/2013 | Aortic aneurysm | Results for this | | ISTAT | e | 3:02 PM | without rupture | procedure are in the | | | | PDT | ([facility]) | results section. | + +--------+ + + + | HEMOGLOBIN-COOX, POC | Routin | 09/04/2013 | Aortic aneurysm | Results for this | | | e | 3:02 PM | without rupture | procedure are in the | | | | PDT | ([facility]) | results section. | + +--------+ + + + | SODIUM, POC | Routin | 09/04/2013 | Aortic aneurysm | Results for this | | | e | 3:02 PM | without rupture | procedure are in the | | | | PDT | ([facility]) | results section. | + +--------+ + [...] the | | | | PDT | ([facility]) | results section. | + +--------+ + + + | ALEXANDRA ROBERT CA, POC | Routin | 09/04/2013 | Aortic aneurysm | Results for this | | | e | 3:02 PM | without rupture | procedure are in the | | | | PDT | ([facility]) | results section. | + +--------+ + [...] the | | | | PDT | ([facility]) | results section. | + +--------+ + + + | SODIUM, POC | Routin | 09/04/2013 | Aortic aneurysm | Results for this | | | e | 2:07 PM | without rupture | procedure are in the | | | | PDT | ([facility]) | results section. | + +--------+ + + + | POTASSIUM, POC | Routin | 09/04/2013 | Aortic aneurysm | Results for this | | | e | 2:07 PM | without rupture | procedure are in the | | | | PDT | ([facility]) | results section. | + +--------+ + + + | GLUCOSE, POC | Routin | 09/04/2013 | Aortic aneurysm | Results for this | | | e | 2:07 PM | without rupture | procedure are in the | | | | PDT | ([facility]) | results section. | + +--------+ + + + | ARTERIAL BLOOD GAS, | Routin | 09/04/2013 | Aortic aneurysm | Results for this | | POC | e | 2:07 PM | without rupture | procedure are in the | | | | PDT | ([facility]) | results section. | + +--------+ + + + | CHLORIDE, POC | Routin | 09/04/2013 | Aortic aneurysm | Results for this | | | e | 2:07 PM | without rupture | procedure are in the | | | | PDT | ([facility]) | results section. | + +--------+ + + + | ALEXANDRA IONIZED CA, POC | Routin | 09/04/2013 | Aortic aneurysm | Results for this | | | e | 2:07 PM | without rupture | procedure are in the | | | | PDT | ([facility]) | results section. | + +--------+ + [...] [facility] | [address] | [place], [place] | | | [facility] | [address] | [address] | | | TESTS | | | [...] [facility] | [address] | [place], [place] | | | [facility] | [address] | [address] | | | TESTS | | | [...] [facility] | [address] | [place], [place] | | | [facility] | [facility] | [address] | | | TESTS | | | | + + + + + X-RAY PORTABLE CHEST 1 VIEW (09/08/2013 9:51 AM PDT) + + + + + + | Component | Value | Ref Range | Performed | Pathologist | | | | | At | Signature | + + + + + + | X-RAY | STUDY: NC CHEST 1 VIEW | | | | [...] | | | LABORATORY | | | [facility] | | | SERVICES, | | | [...] the MDRD equation recommended by the | [facility] | | National Kidney Disease Education Program. [...] | + + + + + | [facility] | [address] | [place] [address] | | | RUDY FELDER | ANTOINE [...] - [facility] | [address] | [place], [place] | | | [facility] | [address] | [address] | | | TESTS | | | [...] [facility] | [address] | [place], [place] | | | [facility] | [address] | [address] | | | TESTS | | | [...] [facility] | [address] | [place], [place] | | | [facility] | [address] | [address] | | | TESTS | | | [...] view image for the detailed interpretation from [employer] results. | CARDIOLOGY | + + + + + | Procedure Note | + + | Interface, Cardiology Results - 09/10/2013 9:39 AM PDT Please click on view image | | for the detailed interpretation from [employer] results. | + + + + + + + | Performing | Address | City/State/Zipcode | Phone Number | | Organization | | | | + + + + + | [facility] | [address] | [place], [place] | | | CARDIOLOGY | [address] | [address] | | + + + + + [...] [facility] | [address] | [place], [place] | | | [facility] | [facility] | [address] | | | TESTS | | | [...] [facility] | [address] | [place] [address] | | | BRADFORD, CORE | ANTOINE [...] | | | LABORATORY | | | GERMAN | | | SERVICES, | | | [...] [facility] | [address] | [place] [address] | | | SERVICES, CORE | PARK [...] [facility] | [address] | [place] [address] | | | SERVICES, CORE | PARK [...] - [facility] | [address] | [place], [place] | | | DOM POINT OF CARE | [address] | [address] | | | TESTS | | | [...] + + + | [facility] | [address] | [place], [place] | | | DOM [facility] | [address] | [address] | | | TESTS | | | [...] [facility] | [address] | [place], [place] | | | [facility] | [address] | [address] | | | TESTS | | | [...] - [facility] | [address] | [place], [place] | | | DOM POINT OF CARE | [address] | [address] | | | TESTS | | | [...] (H) | 60 - 99 mg/dL | [facility] - | | | GLUCOSE, | | [...] H[facility]MOND | [address] | [place], [place] | | | DOM [facility] | [address] | [address] | | | TESTS | | | [...] [facility] | [address] | [place], [place] | | | [facility] | [address] | [address] | | | TESTS | | | [...] [facility] | [address] | [place], [place] | | | DOM [facility] | [address] | [address] | | | TESTS | | | [...] [facility] | [address] | [place], [place] | | | [facility] | [address] | [address] | | | TESTS | | | [...] [facility] | [address] | [place], [place] | | | DOM POINT OF CARE | [address] | [address] | | | TESTS | | | [...] [facility] | [address] | [place], [place] | | | DOM POINT OF CARE | [address] | [address] | | | TESTS | | | [...] H[facility]MOND | [address] | [place], [place] | | | [facility] | [address] | [address] | | | TESTS | | | [...] | + + + + + | [facility] | [address] | [place] [address] | | | SERVICES, RUDY | PARK [...] | + + + + + | [facility] | [address] | [place] [address] | | | SERVICES, CORE | ANTOINE [...] | | | LABORATORY | | | GERMAN | | | SERVICES, | | | [...] | + + + + + | [facility] | [address] | [place] [address] | | | SERVICES, CORE | ANTOINE [...] 98 | 60 - 99 mg/dL | [facility] - | | | GLUCOSE, | | | [facility] | | | POC | | | [facility] FER[facility] | | | | | | [...] HAMMOND | [address] | [place], [place] | | | DOM POINT OF CARE | [address] | [address] | | | TESTS | | | [...] [facility] | [address] | [place], [place] | | | [facility] | [address] | [address] | | | TESTS | | | [...] STEPHANY | [address] | [place], [place] | | | [facility] | [facility] | [address] | | | TESTS | | | [...] (H) | 60 - 99 mg/dL | [facility] - | | | GLUCOSE, | | [...] HAMMOND | [address] | [place], [place] | | | [facility] | [facility] | [address] | | | TESTS | | | [...] [facility] | [address] | [place], [place] | | | [facility] | [address] | [address] | | | TESTS | | | [...] STEPHANY | [address] | [place], [place] | | | [facility] | [facility] | [address] | | | TESTS | | | [...] (H) | 60 - 99 mg/dL | [facility] - | | | GLUCOSE, | | [...] HAMMOND | [address] | [place], [place] | | | [facility] | [facility] | [address] | | | TESTS | | | [...] STEPHANY | [address] | [place], [place] | | | [facility] | [address] | [address] | | | TESTS | | | [...] - STEPHANY | [address] | [place], [place] | | | [facility] | [facility] | [address] | | | TESTS | | | [...] (H) | 60 - 99 mg/dL | [facility] - | | | GLUCOSE, | | [...] HAMMOND | [address] | [place], [place] | | | [facility] | [facility] | [address] | | | TESTS | | | [...] STEPHANY | [address] | [place], [place] | | | [facility] | [address] | [address] | | | TESTS | | | [...] - STEPHANY | [address] | [place], [place] | | | [facility] | [facility] | [address] | | | TESTS | | | [...] (H) | 60 - 99 mg/dL | [facility] - | | | GLUCOSE, | | [...] HAMMOND | [address] | [place], [place] | | | [facility] | [address] | [address] | | | TESTS | | | [...] STEPHANY | [address] | [place], [place] | | | [facility] | [address] | [address] | | | TESTS | | | [...] HAMMOND | [address] | [place], [place] | | | DOM [facility] | [address] | [address] | | | TESTS | | | [...] and | | | | | | Bexar-Asher catheter. | | | | | | [...] [facility] | [address] | [place] [address] | | | SERVICES, CORE | PARK [...] | + + + + + | [facility] | [address] | [place] [address] | | | SERVICES, CORE | ANTOINE [...] [facility] | [address] | [place] [address] | | | SERVICES, CORE | PARK [...] | | | LABORATORY | | | GERMAN | | | SERVICES, | | | [...] | + + + + + | [facility] | [address] | [place] [address] | | | SERVICES, CORE | ANTOINE [...] | | | | | MICKEY WISE ([id number]) on | | | | | | 09/06/2013 3:26:49 PM | | | | + + + + + + + + | Specimen | + + | | + + + + + | Narrative | Performed At | + + + | Please click | [facility] | | on view image for the detailed interpretation from [employer] results. | CARDIOLOGY | + + + + + | Procedure Note | + + | Interface, Cardiology Results - 09/06/2013 3:26 PM PDT Please click on view image | | for the detailed interpretation from [employer] results. | + + + + + + + | Performing | Address | City/State/Zipcode | Phone Number | | Organization | | | | + + + + + | [facility] | [address] | [place], [place] | | | CARDIOLOGY | [facility] | [address] | | + + + + + [...] IJ | | | | | | Bexar-Asher catheter, ET | | | | | [...] | | | | | | YOLANDA PÑEALOZA, | | | | | | MDAuthor: [...] | + + + + + | [facility] | [address] | [place] [address] | | | SERVICES, CORE | ANTOINE [...] | + + + + + | [facility] | [address] | [place] [address] | | | SERVICES, CORE | PARK [...] | + + + + + | [facility] | [address] [facility] | [place] [address] | | | SERVICES, CORE | ANTOINE [...] | + + + + + | [facility] | [address] | [place] [address] | | | SERVICES, CORE | PARK [...] | + + + + + | [facility] | [address] | [place] [address] | | | SERVICES, CORE | ANTOINE [...] [facility] | [address] | [place] [address] | | | SERVICES, CORE | PARK [...] | | | LABORATORY | | | GERMAN | | | SERVICES, | | | [...] | + + + + + | [facility] | [address] | [place] [address] | | | SERVICES, RUDY | ANTOINE [...] [facility] | [address] | [place], [place] | | | DOM POINT OF CARE | [facility] | [address] | | | TESTS | | | [...] | + + + + + | [facility] | [address] | [place] [address] | | | SERVICES, CORE | PARK [...] [facility] | [address] | [place] [address] | | | SERVICES, CORE | ANTOINE [...] + + + + | PRODUCT | [id number] | | [facility] | | | UNIT [...] + + + + | BLOOD | [id number] | | [facility] | | | PRODUCT [...] DEPARTMENT OF | [address] | [place], [place] [address] | | | PATHOLOGY | [address] [...] + + + + | PRODUCT | [id number] | | [facility] | | | UNIT [...] + + + + | BLOOD | [id number] | | [facility] | | | PRODUCT [...] | + + + + + | [facility] DEPARTMENT OF | [address] | [place] [address] | | | PATHOLOGY | [address] | | | + + + + + LACTATE (ART), POC (09/04/2013 5:09 PM PDT) + +-------+ + + + | Component | Value | Ref Range | Performed | Pathologist | | | | | At | Signature | + +-------+ + + + | LACTATE | 1.0 | 0.5 - 1.6 | [facility] - | | | ARTERIAL, | | [...] HAMMOND | [address] | [place], [place] | | | [facility] OF [facility] | [address] | [address] | | | TESTS | | | [...] | | | | | | EDMUNDO FRENANDES | | | | | | OF [...] [facility] | [address] | [place], [place] | | | DOM POINT OF CARE | [address] | [address] | | | TESTS | | | [...] STEPHANY | [address] | [place], [place] | | | [facility] | [facility] | [address] | | | TESTS | | | [...] HAMMOND | [address] | [place], [place] | | | [facility] | [address] | [address] | | | TESTS | | | [...] MAR[facility] | [address] | [place], [place] | | | [facility] | [facility] | [address] | | | TESTS | | | [...] - [facility] | [address] | [place], [place] | | | DOM POINT OF CARE | [facility] | [address] | | | TESTS | | | [...] [facility] | [address] | [place], [place] | | | [facility] | [address] | [address] | | | TESTS | | | [...] HAMMOND | [address] | [place], [place] | | | [facility] | [address] | [address] | | | TESTS | | | [...] STEPHANY | [address] | [place], [place] | | | [facility] | [address] | [address] | | | TESTS | | | [...] STEPHANY | [address] | [place], [place] | | | [facility] | [facility] | [address] | | | TESTS | | | [...] MAR[facility] | [address] | [place] | | | [facility] | [address] | [address] | | | TESTS | | | [...] HAMMOND | [address] | [place] | | | [facility] | [facility] | [address] | | | TESTS | | | [...] MARDANIELLAAM | [address] | [place], [place] | | | [facility] | [facility] | [address] | | | TESTS | | | [...] HAMMOND | [address] | [place], [place] | | | DOM POINT OF CARE | [address] | [address] | | | TESTS | | | [...] STEPHANY | [address] | [place], [place] | | | [facility] | [facility] | [address] | | | TESTS | | | [...] HAMMOND | [address] | [place], [place] | | | DOM POINT OF CARE | [address] | [address] | | | TESTS | | | [...] MARQUAM | [address] | [place], [place] | | | [facility] | [facility] | [address] | | | TESTS | | | [...] STEPHANY | [address] | [place], [place] | | | [facility] | [address] | [address] | | | TESTS | | | [...] HAMMOND | [address] | [place], [place] | | | [facility] | [address] | [address] | | | TESTS | | | [...] MARQUAM | [address] | [place], [place] | | | [facility] | [address] | [address] | | | TESTS | | | [...] MARQUAM | [address] | [place], [place] | | | [facility] | [address] | [address] | | | TESTS | | | [...] HAMMOND | [address] | [place], [place] | | | [facility] | [address] | [address] | | | TESTS | | | [...] MARQUAM | [address] | [place], [place] | | | [facility] | [address] | [address] | | | TESTS | | | [...] STEPHANY | [address] | [place] | | | [facility] | [address] | [address] | | | TESTS | | | [...] - STEPHANY | [address] | [place], [place] | | | [facility] | [facility] | [address] | | | TESTS | | | [...] LITAAM | [address] | [place], [place] | | | DOM POINT OF CARE | [address] | [address] | | | TESTS | | | [...] STEPHANY | [address] | [place], [place] | | | [facility] | [facility] | [address] | | | TESTS | | | [...] STEPHANY | [address] | [place], [place] | | | [facility] | [facility] | [address] | | | TESTS | | | [...] STEPHANY | [address] | [place] | | | [facility] OF [facility] | [address] | [address] | | | TESTS | | | [...] + + | Performing | Address | City/[facility]/Rustcode | Phone Number | | Organization | | | | + + + + + | [facility] | [address] | [place], [place] | | | [facility] | [facility] | [address] | | | TESTS | | | [...] MARQUAM | [address] | [place], [place] | | | [facility] | [address] | [address] | | | TESTS | | | [...] MARQUAM | [address] | [place], [place] | | | HILL, POINT OF CARE | [address] | [address] | | | TESTS | | | [...] - MARQUAM | [address] | [place], [place] | | | [facility] | [address] | [address] | | | TESTS | | | [...] + | [facility] | [address] | [place], [place] | | | [facility] | [address] | [address] | | | TESTS | | | [...] MARQUAM | [address] | [place], [place] | | | [facility] | [address] | [address] | | | TESTS | | | [...] STEPHANY | [address] | [place], [place] | | | [facility] | [address] | [address] | | | TESTS | | | [...] HAMMOND | [address] | [place], [place] | | | [facility] | [address] | [address] | | | TESTS | | | [...] MARQUAM | [address] | [place], [place] | | | [facility] | [address] | [address] | | | TESTS | | | [...] HAMMOND | [address] | [place], [place] | | | DOM POINT OF CARE | [address] | [address] | | | TESTS | | | [...] MARQUAM | [address] | [place], [place] | | | [facility] | [address] | [address] | | | TESTS | | | [...] + + + | [facility] | [address] | [place], [place] | | | DOM [facility] OF [facility] | [address] | [address] | | | TESTS | | | [...] MARQUAM | [address] | [place], [place] | | | [facility] | [address] | [address] | | | TESTS | | | [...] STEPHANY | [address] | [place], [place] | | | [facility] | [facility] | [address] | | | TESTS | | | | + + + + + GLUCOSE, POC (09/04/2013 3:02 PM PDT) + +-------+ + + + | Component | Value | Ref Range | Performed | Pathologist | | | | | At | Signature | + +-------+ + + + | GLUCOSE, | 94 | 60 - 99 mg/dL | [facility] - | | | POC | | [...] STEPHANY | [address] | [place], [place] | | | [facility] | [address] | [address] | | | TESTS | | | [...] STEPHANY | [address] | [place], [place] | | | [facility] | [facility] | [address] | | | TESTS | | | [...] - MARQUAM | [address] | [place], [place] | | | [facility]ARE | [facility] | [address] | | | TESTS | | | [...] HAMMOND | [address] | [place], [place] | | | DOM POINT OF CARE | [address] | [address] | | | TESTS | | | [...] - MARQUAM | [address] | [place], [place] | | | DOM POINT OF CARE | [address] | [address] | | | TESTS | | | [...] HAMMOND | [address] | [place], [place] | | | [facility] | [address] | [address] | | | TESTS | | | [...] MARQUAM | [address] | [place], [place] | | | [facility] | [address] | [address] | | | TESTS | | | [...] LITAAM | [address] | [place], [place] | | | [facility] | [facility] | [address] | | | TESTS | | | [...] HAMMOND | [address] | [place] | | | ED[facility]ND[facility] OF [facility] | [address] | [address] | | | TESTS | | | [...] MARQUAM | [address] | [place], [place] | | | [facility] | [address] | [address] | | | TESTS | | | [...] - MARQUAM | [address] | [place], [place] | | | [facility] | [address] | [address] | | | TESTS | | | [...] STEPHANY | [address] | [place], [place] | | | [facility] | [address] | [address] | | | TESTS | | | [...] HAMMOND | [address] | [place], [place] | | | DOM POINT OF CARE | [address] | [address] | | | TESTS | | | [...] STEPHANY | [address] | [place], [place] | | | [facility] | [facility] | [address] | | | TESTS | | | [...] [facility] | [address] | [place] [address] | | | SERVICES, CORE | PARK [...] [facility] | [address] | [place] [address] | | | SERVICES, CORE | PARK [...] | | | LABORATORY | | | GERMAN | | | SERVICES, | | | [...] | + + + + + | [facility] | [address] | [place] [address] | | | SERVICES, CORE | ANTOINE [...] focallyfibrous. | | | | | | [employer]er | | | | | | sections [...] | + + + + + | [facility] | [address] | [place] [address] | | | PATHOLOGY | [address] [...] (H) | 60 - 99 mg/dL | [facility] - | | | GLUCOSE, | | [...] HAMMOND | [address] | [place], [place] | | | [facility] | [facility] | [address] | | | TESTS | | | [...] STEPHANY | [address] | [place], [place] | | | [facility] | [address] | [address] | | | TESTS | | | [...] + + + + | PRODUCT | [id number] | | [facility] | | | UNIT [...] + + + + | BLOOD | [id number] | | [facility] | | | PRODUCT [...] | + + + + + | [facility] DEPARTMENT OF | [address] | [place] [address] | | | PATHOLOGY | [address] [...] + + + + | PRODUCT | [id number] | | [facility] | | | UNIT [...] + + + + | BLOOD | [id number] | | [facility] | | | PRODUCT [...] DEPARTMENT OF | [address] | [place] [address] | | | PATHOLOGY | [address] [...] + + + + | PRODUCT | [id number] | | [facility] | | | UNIT [...] + + + + | BLOOD | [id number] | | [facility] | | | PRODUCT [...] | + + + + + | [facility] DEPARTMENT OF | [address] | [place] [address] | | | PATHOLOGY | [address] [...] + + + + | PRODUCT | [id number] | | [facility] | | | UNIT [...] + + + + | BLOOD | [id number] | | [facility] | | | PRODUCT [...] DEPARTMENT OF | [address] | [place] [address] | | | PATHOLOGY | [address] [...] [facility] | [address] | [place], [place] | | | [facility]ARE | [facility] | [address] | | | TESTS | | | [...] LABORATORY | [address] | [place] [address] | | | SERVICES, CORE | PARK [...] | | | LABORATORY | | | ELONCIO | | | SERVICES, | | | [...] [facility] | [address] | [place] [address] | | | SERVICES, CORE | PARK [...] [facility] | [address] | [place] [address] | | | SERVICES, RUDY | ANTOINE [...] - STEPHANY | [address] | [place], [place] | | | DOM POINT OF CARE | [address] | [address] | | | TESTS | | | [...] | + + + + + | [facility] | [address] | [place] [address] | | | SERVICES, CORE | ANTOINE [...] [facility] | [address] | [place] [address] | | | SERVICES, CORE | PARK [...] | | | LABORATORY | | | GERMAN | | | SERVICES, | | | [...] | + + + + + | [facility] | [address] [facility] | [place] [address] | | | RUDY FELDER | ANTOINE [...] + + + + | [facility] | [address] | [place], [place] | | | [facility] | [address] | [address] | | | TESTS | | | [...] (H) | 60 - 99 mg/dL | [facility] - | | | GLUCOSE, | | [...] HAMMOND | [address] | [place], [place] | | | DOM POINT OF CARE | [address] | [address] | | | TESTS | | | [...] | + + + + + | [facility] | [address] | [place] [address] | | | BRADFORD, RUDY | PARK [...] | + + + + + | [facility] | [address] | [place] [address] | | | SERVICES, CORE | ANTOINE [...] | | | LABORATORY | | | GERMAN | | | SERVICES, | | | [...] the MDRD equation recommended by the | [facility] | | National Kidney Disease Education Program. [...] | + + + + + | [facility] | [address] | [place] [address] | | | RUDY FELDER | ANTOINE [...] + + + | X-RAY | STUDY: NC CHEST 1 VIEW | | | | [...] KRUPA | | | | | | DARERLL HOPPERuthor: SAGAR | | | | | [...] [facility] | [address] | [place] [address] | | | SERVICES, | [address] [...] | + + + + + | [facility] | [address] | [place] [address] | | | SERVICES, | [address] [...] | + + + + + | [facility] | [address] | [place] [address] | | | SERVICES, CORE | PARK [...] | + + + + + | [facility] | [address] [facility] | [place] [address] | | | BRADFORD, RUDY | PARK [...] [facility] | [address] | [place] [address] | | | SERVICES, CORE | PARK [...] | | | LABORATORY | | | GERMAN | | | SERVICES, | | | [...] | + + + + + | [facility] | [address] | [place] [address] | | | SERVICES, CORE | ANTOINE [...] [facility] | [address] | [place], [place] | | | DOM POINT OF CARE | [address] | [address] | | | TESTS | | | [...] HODGES | | | | | | ([id number]) on 09/04/2013 | | | | | | 10:06:49 PM | | | | + + + + + + + + | Specimen | + + | | + + + + + | Narrative | Performed At | + + + | Please click | [facility] | | on view image for the detailed interpretation from [employer] results. | CARDIOLOGY | + + + + + | Procedure Note | + + | Interface, Cardiology Results - 09/04/2013 10:07 PM PDT Please click on view image | | for the detailed interpretation from [employer] results. | + + + + + + + | Performing | Address | City/State/Zipcode | Phone Number | | Organization | | | | + + + + + | [facility] | [address] | [place], [place] | | | CARDIOLOGY | [address] | [address] | | + + + + + [...]
--- OUTSIDE RECORDS SUMMARY | ~2019-11-14 | XMS | Encounter Summary ---
Demographics + + + | Address | [address] | | | [place] [address] | + + + | Home Phone | | + + + | Preferred Language | Unknown | + + + | Marital Status | | + + + | Denominational Affiliation | NRP | + + + | Race | or | + + + | Ethnic Group | Not or | + + + Author + + + | Author | [facility] | + + + | Organization | [facility] | + + + | Address | Unknown | + + + | Phone | Unavailable | + + + Support + + + + + | Name | Relationship | Address | Phone | + + + + + | Kim Sigo | ECON | [address] | | | | | [place] | | | | | [address] | | + + + + + | Key Escobedo | ECON | Unknown | | + + + + + | Cathleen Escobedo | ECON | Unknown | | + + + + + Care Team Providers + +------+ + | Care Weight Caller Name | Role | Phone | + [...] | | | [address] | [place], [place] | | | | | Physician's | [address] | | | | | [facility], [facility] floor | [phone] | | | | | [place], [place] | | | | | | [address] | | | | | | [phone] | | | +--------+ + + + [...] | 2019 | cyn | | [address] [facility] | | | | | | [address] | | | | | | [place], [place] | | | | | | [address] | | | | | | [phone] | | | | | | | | +--------+ + + + + documented as of this encounter Visit Diagnoses Not on filedocumented in this encounter"
--- OUTSIDE RECORDS SUMMARY | ~2019-11-14 | XMS | Encounter Summary ---
Demographics + + + | Address | [address] | | | [place] [address] | + + + | Home Phone | | + + + | Preferred Language | Unknown | + + + | Marital Status | | + + + | Zoroastrianism Affiliation | Unknown | + + + | Race | Unknown | + + + | Ethnic Group | Unknown | + + + Author + + + | Author | [facility] | | | and [place] | + + + | Organization | [facility] | | [...] [place] | | | | | [address] | | + + + + + Care Team Providers + +------+ + | Care Metal Bonding Helper Name | Role | Phone | + +------+ + | Stanley Kinney PA-C | PCP | | + +------+ + Reason for Referral Evaluate & Treat (Urgent) + + + [...] | | | Onc/New/Lung | [facility] | [address] | | | | | [address] [address] | | | | | | [place], [place] | [place], | | | | | | [address] | [place] [address] | | | | | | Phone: | Phone: | | | | | | [phone] | [phone] | | | | | | Fax: | Fax: | | | | | | [phone] | [phone] | + + + + + + + Encounter Details +--------+ + + + + | Date | Type | Department | Care Team | Description | +--------+ + + + + | 01/21/ | Orders Only | [facility] | Iris Malone, | Mass of left lung | | 2019 | | CARDIOLOGY [place] | [address] | | | | | [address] | [place], [place] | | | | | [place], [place] | [address] | | | | | [address] | | | | | | [phone] | | | +--------+ + + + [...] documented as of this encounter Progress Notes Iris Malone MD - 01/21/2019 1:05 PM PDTCT scan showed left upper lobe mass, suggest serge for malignancy. Needs further evaluation. Will place referral for oncology. documented in this encounter Plan of Treatment +--------+---------+ + + + | Date | Type | Specialty | Care Team | Description | +--------+---------+ + + + | 01/26/ | Office | Cardiology | Iris Malone, | | | 2019 | Visit | | MD Erasmo ESCOTO | | | | | | [place], [place] | | | | | | [address] | | | | | | | | +--------+---------+ + + + + + +--------+ + + | Name | Type | Priori | Associated Diagnoses | Order Schedule | | | | ty | | | + + +--------+ + + | Ambulatory referral | Outpatient | Routin | Mass of left lung | Ordered: 01/21/2019 | | to [facility] Hematology | Referral | e | | | | / Oncology | | | | | + + +--------+ + + documented as of this encounter Visit Diagnoses + + | Diagnosis | + + | Mass of left lung | + + documented in this encounter"
--- OUTSIDE RECORDS SUMMARY | ~2019-11-14 | XMS | Encounter Summary ---
Demographics + + + | Address | [address] | | | [place] [address] | + + + | Home Phone | | + + + | Preferred Language | Unknown | + + + | Marital Status | | + + + | Cheondoism Affiliation | Unknown | + + + | Race | Unknown | + + + | Ethnic Group | Unknown | + + + Author + + + | Author | [facility] | | | and [place] | + + + | Organization | [facility] | | [...] [place] | | | | | [address] | | + + + + + Care Team Providers + +------+ + | Care Reverse Engineer Name | Role | Phone | + +------+ + | Raiza Slaughter PA-C | PCP | | + +------+ + Reason for Visit +--------+--------+ + | Reason | Onset | Comments | | | Date | | +--------+--------+ + | Other | 10/01/ | | | | 2019 | | +--------+--------+ + Encounter Details +--------+ + + + + | Date | Type | Department | Care Team | Description | +--------+ + + + + | 10/01/ | Telephone | [facility] | [place], | Other | | 2020 | | HEMATOLOGY AND | Jennifer Juarez MD | | | | | ONCOLOGY [address] | | [address] | [place] | | | | | [facility] [place] | [address] | | | | | [address] | | | | | | [phone] | | | +--------+ + + + [...] this encounter Miscellaneous Notes Telephone Encounter - Tameka Patterson, Director Process - 10/02/2019 11:53 AM PDTVM recei ligia from patient stating he has rescheduled his operation with Dr. Monroe and would like to go to [facility] in [place] instead. This information has been relayed to Dr. Hayes. documented in this encounter Plan of Treatment +--------+---------+ + + + | Date | Type | Specialty | Care Team | Description | +--------+---------+ + + + | 01/26/ | Office | Cardiology | Iris Malone, | | | 2019 | Visit | | MD Erasmo ESCOTO | | | | | | [place] | | | | | | [id number] | | | | | | | | +--------+---------+ + + + documented as of this encounter Visit Diagnoses Not on filedocumented in this encounter"
--- OUTSIDE RECORDS SUMMARY | ~2019-11-14 | XMS | Encounter Summary ---
Demographics + + + | Address | [address] | | | [place] [address] | + + + | Home Phone | | + + + | Preferred Language | Unknown | + + + | Marital Status | | + + + | Episcopal Affiliation | NRP | + + + | Race | or | + + + | Ethnic Group | Not or | + + + Author + + + | Author | [facility] | + + + | Organization | [facility] | + + + | Address | Unknown | + + + | Phone | Unavailable | + + + Support + + + + + | Name | Relationship | Address | Phone | + + + + + | Kim Sigo | ECON | [address] | | | | | [place] | | | | | [address] | | + + + + + | Key Escobedo | ECON | Unknown | | + + + + + | Cathleen Escobedo | ECON | Unknown | | + + + + + Care Team Providers + +------+ + | Care Rope Tow Operator Name | Role | Phone | [...] | | | [address] | [facility] | | | | | Physician's | [place], [place] | | | | | [address], 2nd floor | [address] | | | | | [place], [place] | [phone] | | | | | [address] | | | | | | [phone] | | | +--------+ + + + [...] | 2019 | cyn | | [address] [facility] | | | | | | [address] | | | | | | [place], [place] | | | | | | [address] | | | | | | [phone] | | | | | | | | +--------+ + + + + documented as of this encounter Visit Diagnoses Not on filedocumented in this encounter"
--- OUTSIDE RECORDS SUMMARY | ~2019-11-14 | XMS | Encounter Summary ---
Demographics + + + | Address | [address] | | | [place] [address] | + + + | Home Phone | | + + + | Preferred Language | Unknown | + + + | Marital Status | | + + + | Lutheran Affiliation | NRP | + + + | Race | or | + + + | Ethnic Group | Not or | + + + Author + + + | Author | [facility] | + + + | Organization | [facility] | + + + | Address | Unknown | + + + | Phone | Unavailable | + + + Support + + + + + | Name | Relationship | Address | Phone | + + + + + | Kim Sigo | ECON | [address] | | | | | [place] | | | | | [address] | | + + + + + | Key Escobedo | ECON | Unknown | | + + + + + | Cathleen Escobedo | ECON | Unknown | | + + + + + Care Team Providers + +------+ + | Care Oil Field Equipment Mechanic Supervisor Name | Role | Phone | + +------+ + | Anupama Juárez | PCP | | + +------+ + Encounter Details +--------+ + + + + | Date | Type | Department | Care Team | Description | +--------+ + + + + | 10/21/ | Anesthesia | Preoperative | Ai Buenrostro, | | | 2020 | Event | [facility] | MAGAZINE REPAIRER [address] | | | | | [facility] | [facility] | | | | | [address] | [place], [place] | | | | | Mail Code: OC8 | [address] | | | | | [facility] | [phone] | | | | | and [place], | | | | | | [address] | | | | | | [place], [place] | | | | | | [address] | | | | | | [phone] | | | +--------+ + + + [...] [address] | | | | | | [place] | | | | | | [address] | | | | | | [phone] | | | | | | | | +--------+ + + + + documented as of this encounter Visit Diagnoses Not on filedocumented in this encounter"
--- OUTSIDE RECORDS SUMMARY | ~2019-11-14 | XMS | Encounter Summary ---
Demographics + + + | Address | [address] | | | [place] [address] | + + + | Home Phone | | + + + | Preferred Language | Unknown | + + + | Marital Status | | + + + | Orthodoxy Affiliation | NRP | + + + | Race | or | + + + | Ethnic Group | Not or | + + + Author + + + | Author | [facility] | + + + | Organization | [facility] | + + + | Address | Unknown | + + + | Phone | Unavailable | + + + Support + + + + + | Name | Relationship | Address | Phone | + + + + + | Kim Sigo | ECON | [address] | | | | | [place] | | | | | [address] | | + + + + + | Key Escobdeo | ECON | Unknown | | + + + + + | Cathleen Escobedo | ECON | Unknown | | + + + + + Care Team Providers + +------+ + | Care Hydrogeology Professor Name | Role | Phone | + [...] Closed | | Cardiac | Diagnoses | [place], | [place], | | | | Surgery | Aortic | MD Andrea | MD Destin | | | | | aneurysm of | [facility] | [address] | | | | | unspecified | PACIFIC | [address], | | | | | site without | HOSPITAL | [place] [address] | | | | | mention of | EMERGENCY | Phone: | | | | | rupture | [address] | [phone] | | | | | Procedures | [address] | Fax: | | | | | [place] [facility] | [place], [place] | [phone] | | | | | [address] [address] | [address] | | | | | | [facility] | Phone: | | | | | | [address] | [phone] | | | | | | ROOT | Fax: | | | | | | [facility] [place] | [phone] | | | | | | [facility] [...] | | | [place] [address] | [place] [address] | (Primary Dx) | | | | [address] | [phone] | | | | | [place], [place] | | | | | | [address] | | | | | | [phone] | | | +--------+---------+ + + + [...] 58 yo male was tr ansferred from [facility] on 09[facility]01 for treatment of newly [...] him work with his PCP at the [facility]. We will get a CT scan [...] Surgery Section Co-Director, Multidisciplinary Heart Valve Clinic [facility] | [email or web address] documented in this en counter Plan of Treatment +--------+ + + + + | Date | Type | Specialty | Care Team | Description | +--------+ + + + + | 11/15/ | Telephone-S | Thoracic Surgery | Ronald Barth MD | | | 2019 | cyn | | [address] [facility] | | | | | | [address] | | | | | | [place], [place] | | | | | | [address] | | | | | | [phone] | | | | | | | | +--------+ + + + + documented as of this encounter Visit Diagnoses + + | Diagnosis | + + | Thoracic aortic aneurysm (HCC) - Primary Thoracic aneurysm without mention of rupture | + + documented in this encounter"
--- OUTSIDE RECORDS SUMMARY | ~2019-11-14 | XMS | Encounter Summary ---
Demographics + + + | Address | [address] | | | [place] [address] | + + + | Home Phone | | + + + | Preferred Language | Unknown | + + + | Marital Status | | + + + | Taoism Affiliation | NRP | + + + | Race | or | + + + | Ethnic Group | Not or | + + + Author + + + | Author | [facility] | + + + | Organization | [facility] | + + + | Address | Unknown | + + + | Phone | Unavailable | + + + Support + + + + + | Name | Relationship | Address | Phone | + + + + + | Kim Sigo | ECON | [address] | | | | | [place] | | | | | [address] | | + + + + + | Key Escobedo | ECON | Unknown | | + + + + + | Cathleen Escobedo | ECON | Unknown | | + + + + + Care Team Providers + +------+ + | Care Community Aide Name | Role | Phone | + [...] | | | [address] | [facility] | | | | | Physician's | [place], [place] | | | | | [address], 2nd floor | [address] | | | | | [place], [place] | [phone] | | | | | [address] | | | | | | [phone] | | | +--------+ + + + [...] | 2019 | cyn | | [address] [facility] | | | | | | [address] | | | | | | [place], [place] | | | | | | [address] | | | | | | [phone] | | | | | | | | +--------+ + + + + documented as of this encounter Visit Diagnoses Not on filedocumented in this encounter"
--- OUTSIDE RECORDS SUMMARY | ~2019-11-14 | XMS | Clinical Summary ---
Demographics + + + | Address | [address] | | | [place] [address] | + + + | Home Phone | | + + + | Preferred Language | Unknown | + + + | Marital Status | | + + + | Mormonism Affiliation | Unknown | + + + | Race | Unknown | + + + | Ethnic Group | Unknown | + + + Author + + + | Author | [facility] | | | and [place] | + + + | Organization | [facility] | | | and [...] [place] | | | | | [address] | | + + + + + Care Team Providers + +------+ + | Care Assistant Merchandiser Name | Role | Phone | + +------+ + | Raiza Slaughter PA-C | PCP | | + +------+ + Allergies + + + + + + [...] + + + + | Lisinopril | Other (See Comments) | Medium | 12/08/19 | Dry hacky cough | | | | | 16 | | + + + + + + Medications + + + +---------+------+------+-------+ | Medication | Sig | Dispensed | Refills | Star | End | Statu | | | | | | t | Date | s | | | | | | Date | | | + + + +---------+------+------+-------+ | methocarbamol | Take 500 mg by mouth | | 0 | 07/2 | | Activ | | (ROBAXIN) 500 mg | every 6 (six) hours | | | 8/20 | | e | | tablet | as needed. | | | 16 | | | + + + +---------+------+------+-------+ | | Take 25 mg by mouth | | 0 | 07/2 | | Activ | | hydroCHLOROthiazide | daily. | | | 8/20 | | e | | 25 mg tablet | | | | 16 | | | + + + +---------+------+------+-------+ | metoprolol | Take 100 mg by mouth | | 0 | 07/2 | | Activ | | tartrate (LOPRESSOR) | 2 (two) times | | | 8/20 | | e | | 100 mg tablet | daily. | | | 16 | | | + + + +---------+------+------+-------+ | aspirin 81 MG EC | Take 81 mg by mouth | | 0 | 10/1 | | Activ | | tablet | daily with | | | 0/20 | | e | | | breakfast. | | | 16 | | | + + + +---------+------+------+-------+ | atorvaSTATin | Take 10 mg by mouth | | 0 | 10/0 | | Activ | | (LIPITOR) 10 mg | nightly. | | | 4/20 | | e | | tablet | | | | 17 | | | + + + +---------+------+------+-------+ | irbesartan | Take 1 tablet by | 90 | 2 | 10/1 | | Activ | | (AVAPRO) 300 mg | mouth nightly. | tablet | | 8/20 | | e | | tablet | | | | 17 | | | + + + +---------+------+------+-------+ | tiZANidine | Take 4 mg by mouth | | 0 | | | Activ | | (ZANAFLEX) 4 mg | every 6 hours as | | | | | e | | tablet | needed. | | | | | | + + + +---------+------+------+-------+ Active Problems + + + | Problem | Noted Date | + + + | Cancer of lower lobe of left lung | 01/21/2019 | + + + + + | Cancer Staging: Clinical stage from 09/23/2019: Stage IA2 (cT1b, | | cN0, cM0) - Signed by Jennifer Hayes MD on 10/01/2019 | + + + + + | Aortic aneurysm | 12/08/2015 | + + + | Essential hypertension | 12/08/2015 | + + + | Hyperlipidemia | 12/08/2015 | + + + | Primary osteoarthritis involving multiple joints | 12/08/2015 | + + + Encounters +--------+ + + + + | Date | Type | Specialty | Care Team | Description | +--------+ + + + + | 10/07/ | Telephone | Oncology | Abigail, | Referral Question | | 2019 | | | Jennifer Juarez MD | | +--------+ + + + + | 10/07/ | Orders Only | Oncology | Abigail, | Cancer of lower lobe | | 2019 | | | Jennifer Juarez MD | of left lung (HCC) | | | | | | (Primary Dx) | +--------+ + + + + | 10/01/ | Telephone | Oncology | Jordanharpreet, | Other | | 2019 | | | Jennifer Juarez MD | | +--------+ + + + + | 09/30/ | Office | Oncology | Abigail, | Cancer of lower lobe | | 2019 | Visit | | Jennifer Juarez MD | of left lung (HCC) | | | | | | (Primary Dx) | +--------+ + + + + | 09/23/ | Telephone | Radiology | Satish Louise, | Follow-up(Procedure) | | 2019 | | | MD | | +--------+ + + + + | 09/22/ | Hospital | Internal Medicine | Abigail, | Mass of left lung | | 2019 | Encounter | | Jennifer Juarez MD | | | | | | Satish Louise MD | | | | | | 1, [facility] Rad Nurse | | +--------+ + + + + | 09/21/ | Telephone | Radiology | Emma Ellis, | | | 2019 | | | RN | | +--------+ + + + + | 09/17/ | Office | Oncology | [place]bigail, | Mass of left lung | | 2019 | Visit | | Jennifer Juarez MD | (Primary Dx); | | | | | | Subcutaneous lipoma | +--------+ + + + + | 09/17/ | Telephone | Radiology | Pascual Sofi | | | 2020 | | | LISA Ferreira | | +--------+ + + + + | 09/09/ | Hospital | Radiology | Abigail, | Mass of left lung | | 2020 | Encounter | | Jennifer Juarez MD | | +--------+ + + + + | 09/06/ | Telephone | Oncology | Abigail, | Diagnostic Order | | 2020 | | | Jennifer Juarez MD | | +--------+ + + + + | 09/02/ | Telephone | Oncology | Abigail, | Diagnostic Order | | 2020 | | | Jennifer Juarez MD | | +--------+ + + + + | 09/02/ | Orders Only | Oncology | [place]ana, | Mass of left lung | | 2019 | | | Jennifer Juarez MD | (Primary Dx) | +--------+ + + + + from Last 3 Months Immunizations + + + + | Name | Administration Dates | Next Due | + + + + | DT (PED) | 12/26/1988 | | + + + + | INFLUENZA PF | 05/31/2017 | | | QUAD(PED/ADOL/ADULT) | | | | ,PSKT or VIAL | | | + + + + | INFLUENZA PF | 02/17/2015 | | | TRIVALENT(PED/ADOL/A | | | | DULT)PATRICIA | | | + + + + | INFLUENZA TRIV | 02/13/2013, 01/12/2012, 02/09/2011, | | | W/PRES(PED/ADOL/ADUL | 04/12/2010 | | | T),MULTIDOSE | | | + + + + | PNEUMOCOCCAL | 04/18/2012 | | | POLYSACCHARIDE | | | | 23-VALENT (PPSV23) | | | + + + + | TDAP, (ADOL/ADULT) | 03/24/2010 | | + + + + | ZOSTER, 1 DOSE | 06/21/2014 | | | (ZOSTAVAX) | | | + + + + Family History + + +------+ + | Medical History | Relation | Name | Comments | + + +------+ + | Heart disease | Mother | | | + + +------+ + | Hypertension | Mother | | | + + +------+ + | Stroke | Mother | | | + + +------+ + + +------+ + + | Relation | Name | Status | Comments | + +------+ + + | Father | | | asbestosis | | | | (Age | | | | | 80) | | + +------+ + + | Maternal Grandfather | | | MVA | + +------+ + + | Maternal Grandmother | | | unknown status | | | | (Age | | | | | 84) | | + +------+ + + | Mother | | | HTN,CVA | | | | (Age | | | | | 78) | | + +------+ + + | Mother | | | | + +------+ + + | Paternal Grandfather | | | CO | | | | (Age | | | | | 86) | | + +------+ + + | Paternal Grandmother | | | unknown status | | | | (Age | | | | | 90) | | + +------+ + + Social History + +-------+ +--------+------+ [...] + | Not Currently | | | past hx of alcohol | | | | | use | + + +---------+ + + + + | Sex Assigned at | Date Recorded | | | | + + + | Not on file | | + + + Last Filed Vital Signs [...] + + + + Plan of Treatment +--------+---------+ + + + | Date | Type | Specialty | Care Team | Description | +--------+---------+ + + + | 01/26/ | Office | Cardiology | Iris Malone, | | | 2019 | Visit | | MD Erasmo ESCOTO | | | | | | [place] | | | | | | [address] | | | | | | | | +--------+---------+ + + + + + + + + | Health Maintenance | Due Date | Last | Comments | | | | Done | | + + + + + | Hepatitis C | | | | | Screening | 5 | | | + + + + + | Colorectal Cancer | | | | | Screening | 5 | | | | (Colonoscopy) | | | | + + + + + | Vaccine: Zoster (2 | | 06/21/19 | | | of 3) | 5 | 15 | | + + + + + | Adult Annual | | | | | Wellness Visit | 9 | | | + + + + + | AAA Screening | | | | | | 0 | | | + + + + + | Vaccine: | | 04/18/20 | | | Pneumococcal 65+ (1 | 0 | 12 | | | of 1 - PPSV23) | | | | + + + + + | Vaccine: Influenza | | 05/31/19 | | | (#1) | 0 | 18, | | | | | 02/18/20 | | | | | 15, | | | | | 02/14/20 | | | | | 13, | | | | | Addition | | | | | al | | | | | history | | | | | exists | | + + + + + | Vaccine: | | 03/24/20 | | | Dtap/Tdap/Td (3 - | 0 | 10, | | | Td) | | 12/26/18 | | | | | 89 | | + + + + + Procedures + +--------+ + + + | [...] | + +--------+ + + + | PET CT SKULL BASE TO | TIGIST | 09/10/2019 | Mass of left lung | Results for this | | MID THIGH | | 12:16 PM | | procedure are in the | | | | PDT | | results section. | + +--------+ + + + | POC GLUCOSE (NON | Routin | 09/10/2019 | | Results for this | | ORD) | e | 10:38 AM | | procedure are in the | | | | PDT | | results section. | + +--------+ + + + from Last 3 Months Results XR Chest Expiration Only (09/23/2019 2:18 [...] guidance, a 19/20 | | | gauge Temno coaxial needle system was used [...] + + | Performing | Address | City/State/[facility] | Phone Number | | Organization [...] SPECIMEN(S): A LEFT LUNG NODULE SPECIMEN | [facility] | | SOURCE:A. LEFT LUNG NODULE CLINICAL [...] separately. As part | | | of [facility]' Quality Improvement Program, this case was | [...] | | technical component was performed by [facility], [address] [place] [address] | | | [place] [address] (Retail Representative: Anisa Fuller MD; CLIA# | | | [id number]). Professional interpretation was performed by[facility] | | | [facility] | | | [place] [address] (Retail Representative: Andrea Zepeda M.D.; CLIA#: | | | [id number]). ADDITIONAL NOTES:Immunohistochemical and/or in situ | | | hybridization studies were performed on this case with the appropriate | | | positive controls that react as expected. This test was developed | | | and its performancecharacteristics determined by [facility]. | | | It has not been cleared or approved by the U.S. Food and Drug | | | Administration. The FDA has determined that such clearance or | | | approval is notnecessary. This test is used for clinical purposes. | | | It should not be regarded as investigational or for research. | | | [facility] is certified under the Clinical Laboratory | [...] platform with OptiView detection was performed at [facility] | | | [employer], [address] [place] [address]. The Dako 22C3 | | | pharmDx [...] developed and its performance characteristics determined by [facility] | | | [facility]ostics, but this does not represent FDA-approved application of | | | this assay. [facility] is certified under the Clinical | | [...] in multiple automated | | | immunohistochemistry platformsIlie M, Kai Montejo | | | C, Alin L, Callie J, et al. (2017). Use of the 22C3 anti | | | | | | PD-L1 antibody to determine PD-L1 expression in multiple automated | | | immunohistochemistry platforms. PLOSONE 12(8): s0261801. | | | https://doi.org/10.1371/journal.pone.0560164 The technical component | | | and professional interpretation were performed by [facility], | | | [address] [place] [address] (Retail Representative: | | | Dwaine Baird D.O.; [place]#:[id number]). ADDITIONAL NOTES:The BRAF | | | and [...] | | c.2240_2254del15,c.2240_2257del18, c.2239_2248TTAAGAGAAG>C, | | | c.223_2251>C, c.7_2255>T, c.2235_2255>AAT, c.2237_2252>T, | | | c.2239_2258>CA, c.223_2256>CAA, c.2237_2253>TTGCT, c.2238_2252>GCA, | | | c.2238_2248>GC,c.2237_2251del15, c.2236_2253del18, [...] designed to detect | | | V600E (N6617E). Some non-V600E mutations, V600K, V600D, and V600E2, | | | may be detected by the assay.Performance characteristics of | | | non-melanoma samples for the BRAF mutation analysis test have been | | | determined by [facility], [address] [place] [address], but | | | have not been [...] Test were | | | performed at [facility] | | | [address] (Retail Representative: Amrit Horton MD, PhD;CLIA# [id number]). | | | REASON FOR ADDENDUM:This case is addended for the addition of BRAF and | | | EGFR Mutation Analysis results. ADDENDUM PATHOLOGIC | | | DIAGNOSIS:[id number], A1LEFT LUNG NODULE: Mutation DETECTED - See [...] kinase inhibitors: Guideline from the [employer] [place] [employer] [place] | | | Pathologists, InternationalAssociation for the Study of Lung Cancer, | | | and Association for Molecular Pathology. J Thorac Oncol. | | | 2013;8(7):823-859. ADDENDUM CLINICAL HISTORY:Client Request: BRAF | | | and EGFR Mutation Analysis requested by Dr. Fuller per [facility] | | | protocol. ADDENDUM MICROSCOPIC EXAMINATION:An [...] tissue | | | block A1, numbered [id number], belonging to patient SIGO III, | | [...] | | | LungScoring method: ManualCPT code: 12203# of units: 1 | | | Electronic SignatureAlize Soliman M.D., Pathologist All controls | | | were within expected ranges.The Technical Component Processing and | | | Analysis of this test was completed at [facility] [place], | | | [place], [place] / [address] / [phone] / [place] #[id number] / | | | Retail Representative(s):Sydnie Sung M.D. (Accession/CaseNo: | | | [id number]) The Professional Component of this test was | | | completed at [facility] [address], | | | [place] [address] / / Fax: [phone] | | | [phone].[facility] test uses either FDA cleared | [...] may be included within this report are residential sales representative of the patient | | | but not all testing in its entirety and should not be used to render a | | | result.The CPT codes provided with our test descriptions are based on | | | AMA guidelines and are for informational purposes only. Correct CPT | | | coding is the sole responsibility of the billing republican. Please | | | directany questions regarding [...] Scored: 50 Probe set: | | | IPR6Yzyaayx method: ManualCPT code: 28293# of units: 1 | | | Electronic SignatureAlize Soliman M.D., Pathologist All controls | | | were within expected ranges.The Technical Component Processing and | | | Analysis of this test was completed at [facility], [address] | | | [place], [place] / [address] / [phone] / CLIA #[id number] / | | | Retail Representative(s): Sydnie Sung M.D. (Accession/CaseNo: | | | [id number]) The Professional Component of this test was | | | completed at [facility] [place], [address], | | | [place] [address] / / Fax: [phone] | | | [phone].[facility] test uses either FDA cleared | | | and/or analyte specific reagent (ASR) probes. This test was developed | | | and its performance characteristics determined by | | | [facility] in [place], [place]. It has not been cleared or [...] within this | | | report are residential sales representative of the patient but not all testing in its | | | entirety and should not be used to render a result.The CPT codes | | | provided with our test descriptions are based on AMA guidelines and | | | are for informational purposes only. Correct CPT coding is the sole | | | responsibility of the billing republican. Please directany questions | | | regarding coding to the payer being billed. Diagnostician: Dwaine Wadsworth | | | Oli DOPathologistDiagnostician: Rony Sterling MT([facility]) | | | MBPathologistDiagnostician: Amrit Horton | [...] | | | | | performed at [facility] | | | | | | [facility];[place], [place] | | | | | | [address] | | | | + + + + + + + + | Specimen | + + | Blood | + + + + + + + | Performing | Address | City/State/Zipcode | Phone Number | | Organization | | | | + + + + + | [facility] | [address] | [place] [address] | [phone] | + + + + + CBC with Differential (09/23/2019 11:25 AM PDT) + + + + + + | Component | Value | Ref Range | Performed | Pathologist | | | | | At | Signature | + + + + + + | WBC | 11.50 (H) | 3.80 - 11.00 | [facility] | | | | | K/uL | [...] 0.03Comment: Testing | 0.00 - 0.10 | [facility] | | | Absolute | performed at [facility];[address] | K/uL | LABORATORY | | | | [place] | | | | | | [address] | | | | + + + + + + + + | Specimen | + + | Blood | + + + + + + + | Performing | Address | City/State/Zipcode | Phone Number | | Organization | | | | + + + + + | [facility] | [address] | [place] [address] | [phone] | + + + + + PET CT Skull Base To Mid Thigh [...] low-grade malignancy. Signed by: Wilton | | | Chet Ford Sign Date/Time: 09/10/2019 2:56 PM | | [...] superior segment left lower lobe mass 4/75 | | measuring 18 x 15 mm. [...] + + | Performing | Address | City/State/[facility] | Phone Number | | Organization | | | | + +---------+ + + | [facility] | | | | + +---------+ + + POC Glucose (09/10/2019 10:38 AM PDT) + + + + + + | Component | Value | Ref Range | Performed | Pathologist | | | | | At | Signature | + + + + + + | Glucose, | 106 (H)Comment: Testing | 65 - 99 mg/dL | [facility] | | | POC | performed at [facility];[address] | | LABORATORY | | | | [address];[place] | | | | | | [address] | | | | + + + + + + + + | Specimen | + + | | + + + + + + + | Performing | Address | City/State/Zipcode | Phone Number | | Organization | | | | + + + + + | [facility] | [address] | [place] [address] | [phone] | + + + + + from Last 3 Months Insurance + +--------+ +--------+ +---------+--------+ | Payer | Benefi | Subscriber | Effect | Phone | Address | Type | | | t Plan | ID | serge | | | | | | / | | Dates | | | | | | Group | | | | | | + +--------+ +--------+ +---------+--------+ | BCBS | BCBS | [id number] | 01/12/20 | | | PPO | | | OOS | 9 | 13-Pre | | | | | | PPO | | sent | | | | + +--------+ +--------+ +---------+--------+ | MEDICARE | RAILRO | [id number] | 05/13/19 | [phone] | | Medica | | | AD | | 20-Pre | 5 | | re | | | MEDICA | | sent | | | | | | RE | | | | | | + +--------+ +--------+ +---------+--------+ | [employer] | IHS | [id number] | | | | Indemn | | SERVICE | YELLOW | | 015-Pr | | | ity | | | HAWK | | esent | | | | + +--------+ +--------+ +---------+--------+ | [employer] | IHS | [id number] | 01/19/20 | | | Indemn | | SERVICE | YELLOW | | 19-Pre | | | ity | | | HAWK | | sent | | | | + +--------+ +--------+ +---------+--------+ + +--------+ +--------+ + + | Guarantor Name | Accoun | Relation to | Date | Phone | Billing Address | | | t Type | Patient | of | | | | | | | | | | + +--------+ +--------+ + + | Martita Escobedo III | Person | Self [birth year] | [address] | | | al/Fam | | 1955 | [phone] | [place] | | | [place] | | | 5 (Home) | [address] | + +--------+ +--------+ + + | Martita Escobedo III | Person | Self | [birth year] | [address] | | | al/Fam | | 1955 | [phone] | [place] | | | [place] | | | 5 (Home) | [address] | + +--------+ +--------+ + + Advance Directives + + + + + | Type | Date Recorded | Patient | Explanation | | | | Canary Breeder | | + + + + + | Power of | | | | | Radio Presenter | | | | + + + + + | Advance | 09/23/2019 10:59 | | | | Directive | AM | | | + + + + +
--- OUTSIDE RECORDS SUMMARY | ~2019-11-14 | XMS | Encounter Summary ---
Demographics + + + | Address | [address] | | | [place] [address] | + + + | Home Phone | | + + + | Preferred Language | Unknown | + + + | Marital Status | | + + + | Baptist Affiliation | Unknown | + + + | Race | Unknown | + + + | Ethnic Group | Unknown | + + + Author + + + | Author | [facility] | | | and [place] | + + + | Organization | [facility] | | | [...] [place] | | | | | [address] | | + + + + + Care Team Providers + +------+ + | Care In Service Education Teacher Name | Role | Phone | + +------+ + | Stanley Kinney PA-C | PCP | | + +------+ + Encounter Details +--------+ + + + + | Date | Type | Department | Care Team | Description | +--------+ + + + + | 12/26/ | Orders Only | [facility] | Iris Malone, | Thoracic aortic | | 2019 | | CARDIOLOGY [place] | [address] | aneurysm without | | | | [address] | [place], [place] | rupture (HCC); | | | | [address] | [address] | Essential (primary) | | | | [place], [place] | | hypertension; Mixed | | | | [address] | | hyperlipidemia | | | | [phone] | | | +--------+ + + + [...] | | | | | [place], [place] | | | | | | [address] | | | | | | | | +--------+---------+ + + + + +------+--------+ + + | Name | Type | Priori | Associated Diagnoses | Order Schedule | | | | ty | | | + +------+--------+ + + | Creatinine | Lab | Routin | Thoracic aortic | Expected: | | | | e | aneurysm without | 02/19/2018, Expires: | | | | | rupture (HCC) | 02/19/2019 | | | | | Essential (primary) | | | | | | hypertension Mixed | | | | | | hyperlipidemia | | + +------+--------+ + + documented as of this encounter Visit Diagnoses + + | Diagnosis | + + | Thoracic aortic aneurysm without rupture (HCC) Thoracic aneurysm without mention of | | rupture | + + | Essential (primary) hypertension Unspecified essential hypertension | + + | Mixed hyperlipidemia | + + documented in this encounter"
--- OUTSIDE RECORDS SUMMARY | ~2019-11-14 | XMS | Encounter Summary ---
Demographics + + + | Address | [address] | | | [place] [address] | + + + | Home Phone | | + + + | Preferred Language | Unknown | + + + | Marital Status | | + + + | Nondenominational Affiliation | Unknown | + + + [...] + + + + + | Alie Escoebdo | ECON | [address] | | | | | [place] | | | | | [address] | | + + + + + Care Team Providers + +------+ + | Care Service Desk Specialist Name | Role | Phone | [...] Closed | | Radiology | Diagnoses | Faisal, | [facility] [address] | | | | | Pulmonary | MD Iris | [address] | | | | | nodule | [address] | [place], [place] | | | | | Procedures | [address] | [address] | | | | | CT Chest wo | [place] | Phone: | | | | | Contrast | [place], [place] | [phone] | | | | | | [address] | Fax: | | | | | | Phone: | [phone] | | | | | | [phone] | | | | | | | Fax: | | | | | | | [phone] | | +--------+--------+ + + + + Encounter Details +--------+ + + + + | Date | Type | Department | Care Team | Description | +--------+ + + + + | 01/30/ | Orders Only | [facility] | Faisal, Aninicanor, | Pulmonary nodule | | 2019 | | CARDIOLOGY ASHKAN Garza MD [address] | (Primary Dx) | | | | [address] | [place], [place] | | | | | [place], [place] | [address] | | | | | [address] | | | | | | [phone] | | | +--------+ + + + [...] | 01/26/ | Office | Cardiology | LuanaIris staton, | | | 2019 | Visit | | MD Erasmo ESCOTO | | | | | | [place] | | | | | | [address] | | | | | | | | +--------+---------+ + + + documented as of this encounter Results CT Chest wo Contrast (07/17/2019 3:44 PM PST) + + | Specimen | + + | | + + + + + | Impressions | Performed At | + + + | 1. There is a suspicious part solid nodule in the superior segment | [facility] | | left upper lobe which is similar in size to the chest CT performed | | | on 01/20/2019. The solid component measures 11 mm and the entire | | | nodule including the sub-solid component measures 15 mm. Pulmonary | | | Nodule Follow Up Recommendation:Lung lesion with imaging features | | | highly suggestive of malignancy. Recommendation: Thoracic specialist | | | referral for definitive management. Consider staging PET CT. (Lung | | | RADS4x recommendation). 2. Unchanged 4 x 7 x 10 cm lipoma in | | | the soft tissues of the left shoulder. Signed by: Deepa | | | Destin Ford Sign Date/Time: 07/20/2019 8:14 AM | | + + + + + + | Narrative | Performed At | + + + | CT CHEST WITHOUT CONTRAST CLINICAL INFORMATION: Cough, | [facility] | | Pulmonary nodule, follow up COMPARISON: CT ANGIOGRAM CHEST W | | | CONTRAST (01/20/2019); PROCEDURE: Axial images through the chest. | | | Multiplanar reconstructions. At least one of the following CT dose | | | optimization techniques were used: Automated exposure control; | | | Adjustment of mA and/or kV according to patient size; Use of | | | iterative reconstruction technique. FINDINGS: Lungs, Pleura and | | | Airways: There is a superior segment left lower lobe mixed solid | | | and sub solid nodule (series 3, image 47) with spiculated margins. | | | The solid component of the nodule measures 11 mm. The entire | | | nodule measures 15 mm. This is similar to the examination of | | | 01/20/2019 when accounting for differences in technique. There is | | | an area of scarring in the anterior left upper lung, unchanged | | | (series 3, images 35-40) there is minimal bibasilar bronchiectasis | | | with bibasilar root scarring or fibrosis. Mediastinum: | | | Atherosclerosis of the thoracic aorta is again noted. Coronary artery | | | calcification is again noted. No significant pericardial or | | | esophageal abnormality. No mediastinal mass. Lymph Nodes: No | | | adenopathy. Upper Abdomen: Splenic and hepatic calcifications are | | | noted consistent with history of granulomatous disease. BODY WALL | | | Soft Tissues: There is an intramuscular lipoma involving the left | | | shoulder which measures 3.5 x 7.2 by 10 cm, unchanged. Bones: No | | | acute fracture or vertebral end plate destruction. No lytic or | | | blastic lesion. | | + + + + + | Procedure Note | + + | Robby, Rad Results In - 07/20/2019 8:18 AM PDT | | CT CHEST WITHOUT CONTRAST | | | | CLINICAL INFORMATION: | | Cough, Pulmonary nodule, follow up | | | | COMPARISON: | | CT ANGIOGRAM CHEST W CONTRAST (01/20/2019); | | | | PROCEDURE: | | Axial images through the chest. Multiplanar reconstructions. | | | | At least one of the following CT dose optimization techniques were | | used: Automated exposure control; Adjustment of mA and/or kV according | | to patient size; Use of iterative reconstruction technique. | | | | FINDINGS: | | Lungs, Pleura and Airways: | | | | There is a superior segment left lower lobe mixed solid and sub solid | | nodule (series 3, image 47) with spiculated margins. The solid | | component of the nodule measures 11 mm. The entire nodule measures 15 | | mm. This is similar to the examination of 01/20/2019 when accounting | | for differences in technique. | | | | There is an area of scarring in the anterior left upper lung, unchanged | | (series 3, images 35-40) there is minimal bibasilar bronchiectasis with | | bibasilar root scarring or fibrosis. | | | | Mediastinum: Atherosclerosis of the thoracic aorta is again noted. | | Coronary artery calcification is again noted. No significant | | pericardial or esophageal abnormality. No mediastinal mass. | | Lymph Nodes: No adenopathy. | | Upper Abdomen: Splenic and hepatic calcifications are noted consistent | | with history of granulomatous disease. | | | | BODY WALL | | Soft Tissues: There is an intramuscular lipoma involving the left | | shoulder which measures 3.5 x 7.2 by 10 cm, unchanged. | | Bones: No acute fracture or vertebral end plate destruction. No lytic | | or blastic lesion. | | | | IMPRESSION: | | 1. There is a suspicious part solid nodule in the superior segment | | left upper lobe which is similar in size to the chest CT performed on | | 01/20/2019. The solid component measures 11 mm and the entire nodule | | including the sub-solid component measures 15 mm. Pulmonary Nodule | | Follow Up Recommendation:Lung lesion with imaging features highly | | suggestive of malignancy. Recommendation: Thoracic specialist referral | | for definitive management. Consider staging PET CT. (Lung RADS4x | | recommendation). | | | | 2. Unchanged 4 x 7 x 10 cm lipoma in the soft tissues of the left | | shoulder. | | | | | | | | Signed by: Liliana Arenas, Destin | | Sign Date/Time: 07/20/2019 8:14 AM | + + + +---------+ + + | Performing | Address | City/State/Zipcode | Phone Number | | Organization | | | | + +---------+ + + | [facility] | | | | + +---------+ + + documented in this encounter Visit Diagnoses + + | Diagnosis | + + | Pulmonary nodule - Primary Solitary pulmonary nodule | + + documented in this encounter"
--- OUTSIDE RECORDS SUMMARY | ~2019-11-14 | XMS | Encounter Summary ---
Demographics + + + | Address | [address] | | | [place] [address] | + + + | Home Phone | | + + + | Preferred Language | Unknown | + + + | Marital Status | | + + + | Mormon Affiliation | NRP | + + + | Race | or | + + + | Ethnic Group | Not or | + + + Author + + + | Author | [facility] [employer] [facility] | + + + | Organization | [facility] [employer] [facility] | + + + | Address | Unknown | + + + | Phone | Unavailable | + + + Support + + + + + | Name | Relationship | Address | Phone | + + + + + | Kim Sigo | ECON | [address] | | | | | [place] | | | | | [address] | | + + + + + | Key Escobedo | ECON | Unknown | | + + + + + | Cathleen Escobedo | ECON | Unknown | | + + + + + Care Team Providers + +------+ + | Care Vitreo Retinal Surgeon Name | Role | Phone | + [...] | | | | | | [address] [place], [place] | | | | | | [address] | | | | | | [phone] | | | +--------+ + + + [...] Rd | | | | | | [place], [place] | | | | | | [address] | | | | | | [phone] | | | | | | | | +--------+ + + + + documented as of this encounter Visit Diagnoses Not on filedocumented in this encounter"
--- OUTSIDE RECORDS SUMMARY | ~2019-11-14 | XMS | Encounter Summary ---
Demographics + + + | Address | [address] | | | [place] [address] | + + + | Home Phone | | + + + | Preferred Language | Unknown | + + + | Marital Status | | + + + | Jehovah'S Witness Affiliation | Unknown | + + + | Race | Unknown | + + + | Ethnic Group | Unknown | + + + Author + + + | Author | [facility] | | | and [place] | + + + | Organization | [facility] | | | [...] [place] | | | | | [address] | | + + + + + Care Team Providers + +------+ + | Care Special Events Driver Name | Role | Phone | + +------+ + | Raiza Slaughter PA-C | PCP | | + +------+ + Reason for Visit + +--------+ + | Reason | Onset | Comments | | | Date | | + +--------+ + | Diagnostic Order | 09/02/ | | | | 2019 | | + +--------+ + Encounter Details +--------+ + + + + | Date | Type | Department | Care Team | Description | +--------+ + + + + | 09/02/ | Telephone | [facility] | Abigail, | Diagnostic Order | | 2019 | | HEMATOLOGY AND | Jennifer Juarez MD | | | | | ON[address]OGY [address] | | | | | [address] | [place] | | | | | [place] | [address] | | | | | [address] | | | | | | [phone] | | | +--------+ + + + [...] Miscellaneous Notes Telephone Encounter - Luma Newton, Balloon Sander - 09/03/2019 2:53 PM PDTI faxed e order for pet scan to [facility] Attn: Sean. They will call patient to schedule.Electron ically signed by Luma Newton, Balloon Sander at 09/03/2019 2:56 PM PDTdocumented in is encounter Plan of Treatment +--------+---------+ + + + | Date | Type | Specialty | Care Team | Description | +--------+---------+ + + + | 01/26/ | Office | Cardiology | Iris Malone, | | | 2019 | Visit | | MD Erasmo ESCOTO | | | | | | [place] | | | | | | [address] | | | | | | | | +--------+---------+ + + + documented as of this encounter Visit Diagnoses Not on filedocumented in this encounter"
--- OUTSIDE RECORDS SUMMARY | ~2019-11-14 | XMS | Encounter Summary ---
Demographics + + + | Address | [address] | | | [place] [address] | + + + | Home Phone | | + + + | Preferred Language | Unknown | + + + | Marital Status | | + + + | Samaritan Affiliation | Unknown | + + + | Race | Unknown | + + + | Ethnic Group | Unknown | + + + Author + + + | Author | [facility] | | | and [place] | + + + | Organization | [facility] | | | [...] [place] | | | | | [address] | | + + + + + Care Team Providers + +------+ + | Care Residential Appraiser Name | Role | Phone | + +------+ + | Raiza Slaughter PA-C | PCP | | + +------+ + Reason for Visit + +--------+ + | Reason | Onset | Comments | | | Date | | + +--------+ + | Referral Question | 10/07/ | | | | 2019 | | + +--------+ + Encounter Details +--------+ + + + + | Date | Type | Department | Care Team | Description | +--------+ + + + + | 10/07/ | Telephone | [facility] | Abigail, | Referral Question | | 2019 | | HEMATOLOGY AND | Jennifer Juarez MD | | | | | ONCOLOGY [address] | | | | | [address] | [place] | | | | | [place] | [address] | | | | | [address] | | | | | | [phone] | | | +--------+ + + + [...] Miscellaneous Notes Telephone Encounter - Luma Newton, Natural Resources Instructor - 10/08/2019 3:12 PM PDTI returned Richard's phone call asking if Dr. Hayes has put his referral in to see thoracic surg ihsan @ [facility]. I let Richard know that his referral is in and Dr. Huber is going to try and g et him scheduled for a virtual visit tomorrow. I told him, I did not know if it will be Dr. Huber that he speaks to but one of the doctors will see him tomorrow, if at all possible. Richard stated understanding, and will call me if he does not hear from anyone.Electronicall y signed by Luma Newton, Natural Resources Instructor at 10/08/2019 3:28 PM PDTdocumented in this en counter Plan of Treatment +--------+---------+ + + + | Date | Type | Specialty | Care Team | Description | +--------+---------+ + + + | 01/26/ | Office | Cardiology | Iris Malone, | | 2019 | Visit | | MD Erasmo ESCOTO | | | | | | [place] | | | | | | [id number] | | | | | | | | +--------+---------+ + + + documented as of this encounter Visit Diagnoses Not on filedocumented in this encounter"
--- OUTSIDE RECORDS SUMMARY | ~2019-11-14 | XMS | Encounter Summary ---
Demographics + + + | Address | [address] | | | [place] [address] | + + + | Home Phone [...] Author + + + | Author | [facility] [employer] [facility] | + + + | Organization | [facility] [employer] [facility] | + + + | Address | Unknown | + + + | Phone | Unavailable | + + + Support + + + + + | Name | Relationship | Address | Phone | + + + + + | Kim Sigo | ECON | [address] | | | | | [place] | | | | | [address] | | + + + + + | Key Escobedo | ECON | Unknown | | + + + + + | Cathleen Escobedo | ECON | Unknown | | + + + + + Care Team Providers + +------+ + | Care Automotive Dismantler Name | Role | Phone | + +------+ + | Anupama Juárez | PCP | | + +------+ + Reason for Visit + + + | Reason | Comments | + + + | Tumor Board | For 05 November Lung Tumor Board | | Recommendation | | + + + Encounter Details +--------+ + + + + | Date | Type | Department | Care Team | Description | +--------+ + + + + | 11/04/ | Documentati | Cardiothoracic | Slade Cox NP | Tumor Board | | 2020 | on | [facility] [address] | [address] | Recommendation (For | | | | [address] | [facility] [place] | 05 November Lung Tumor | | | | Physician's | [address] | Board) | | | | [place], 2nd floor | [phone] | | | | | [place], [place] | | | | | | [address] | | | | | | [phone] | | | +--------+ + + + [...] Rd | | | | | | [place], [place] | | | | | | [address] | | | | | | [phone] | | | | | | | | +--------+ + + + + documented as of this encounter Visit Diagnoses Not on filedocumented in this encounter"
--- OUTSIDE RECORDS SUMMARY | ~2019-11-14 | XMS | Encounter Summary ---
Demographics + + + | Address | [address] | | | [place] [address] | + + + | Home Phone [...] + + | Author | [facility] | + + + | Organization | [facility] | + [...] [place] | | | | | [address] | | + + + + + | Key Escobedo | ECON | Unknown | | + + + + + | Cathleen Escobedo | ECON | Unknown | | + + + + + Care Team Providers + +------+ + | Care Extract Operator Name | Role | Phone | + +------+ + | Anupama Juárez | PCP | | + +------+ + Encounter Details +--------+ + + + + | Date | Type | Department | Care Team | Description | +--------+ + + + + | 11/13/ | Telephone | Cardiothoracic | Tresa Peterson MD | | | 2020 | | [facility] [address] | [address] | | | | | [address] | [place], | | | | | Physician's | [place] [address] | | | | | Pavilion, 2nd floor | [phone] | | | | | [place], [place] | | | | | | [address] | | | | | | [phone] | | | +--------+ + + + [...] | 2019 | cyn | | [address] [facility] | | | | | | [address] | | | | | | [place], [place] | | | | | | [address] | | | | | | [phone] | | | | | | | | +--------+ + + + + documented as of this encounter Visit Diagnoses Not on filedocumented in this encounter"
--- OUTSIDE RECORDS SUMMARY | ~2019-11-14 | XMS | Encounter Summary ---
Demographics + + + | Address | [address] | | | [place] [address] | + + + | Home Phone | | + + + | Preferred Language | Unknown | + + + | Marital Status | | + + + | Denominational Affiliation | NRP | + + + | Race | or | + + + | Ethnic Group | Not or | + + + Author + + + | Author | [facility] [email or web address] [facility] | + + + | Organization | [facility] [employer] [facility] | + + + | Address | Unknown | + + + | Phone | Unavailable | + + + Support + + + + + | Name | Relationship | Address | Phone | + + + + + | Kim Sigo | ECON | [address] | | | | | [place] | | | | | [address] | | + + + + + | Key Escobedo | ECON | Unknown | | + + + + + | Cathleen Escobedo | ECON | Unknown | | + + + + + Care Team Providers + +------+ + | Care Crm Solution Architect Name | Role | Phone | + [...] | | | lobe of lung | [place], [place] | | | | | | (HCC) | [address] | | | | | | Procedures | Phone: | | | | | | CT CHEST WO | [phone] | | | | | | CONTRAST | Fax: | | | | | | | [phone] | | + +--------+ + + + + Encounter Details +--------+ + + + + | Date | Type | Department | Care Team | Description | +--------+ + + + + | 11/10/ | Fish Liver Sorter | Cardiothoracic | Slade Cox, LUBE WORKER | 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
--- OUTSIDE RECORDS SUMMARY | ~2019-11-14 | XMS | Encounter Summary ---
Demographics + + + | Address | [address] | | | [place] [address] | + + + | Home Phone | | + + + | Preferred Language | Unknown | + + + | Marital Status | | + + + | Holiness Affiliation | Unknown | + + + | Race | Unknown | + + + | Ethnic Group | Unknown | + + + Author + + + | Author | [facility] | | | and [place] | + + + | Organization | [facility] | | | [...] [place] | | | | | [address] | | + + + + + Care Team Providers + +------+ + | Care Creative Coordinator Name | Role | Phone | + +------+ + | Raiza Slaughter PA-C | PCP | | + +------+ + Encounter Details +--------+ + + + + | Date | Type | Department | Care Team | Description | +--------+ + + + + | 02/27/ | Orders Only | [facility] | Iris Malone, | | | 2017 | | CARDIOLOGY ASHKAN | [address] | | | | | [address] | [place], [place] | | | | | [place], [place] | [address] | | | | | [address] | | | | | | [phone] | | | +--------+ + + + [...] [place] | | | | | | [address] | | | | | | | | +--------+---------+ + + + documented as of this encounter Visit Diagnoses Not on filedocumented in this encounter"
--- OUTSIDE RECORDS SUMMARY | ~2019-11-14 | XMS | Encounter Summary ---
Demographics + + + | Address | [address] | | | [place] [address] | + + + | Home Phone | | + + + | Preferred Language | Unknown | + + + | Marital Status | | + + + | Anglican Affiliation | Unknown | + + + | Race | Unknown | + + + | Ethnic Group | Unknown | + + + Author + + + | Author | [facility] | | | and [place] | + + + | Organization | [facility] | | [...] [place] | | | | | [address] | | + + + + + Care Team Providers + +------+ + | Care Cross Roller Name | Role | Phone | + [...] | Radiology | Diagnoses | Alsamara, | [facility] [address] | | | | | Pulmonary | MD Iris | [address] | | | | | nodule | [address] | [place], [place] | | | | | Procedures | [address] | [address] | | | | | CT Chest wo | [place] | Phone: | | | | | Contrast | [place], [place] | [phone] | | | | | | [address] | Fax: | | | | | | Phone: | [phone] | | | | | | [phone] | | | | | | | Fax: | | | | | | | [phone] | | +--------+--------+ + + + + Reason for Visit Diagnostic/Screening (Routine) +--------+--------+ + + + + | Status | Reason | Specialty | Diagnoses / | Referred By | Referred To | | | | | Procedures | Contact | Contact | +--------+--------+ + + + + | Closed | | Radiology | Diagnoses | Alsamara, | [facility] [address] | | | | | Pulmonary | MD Iris | [address] | | | | | nodule | [address] | [place], [place] | | | | | Procedures | [address] | [address] | | | | | CT Chest wo | [place] F | Phone: | | | | | Contrast | [place], [place] | [phone] | | | | | | [address] | Fax: | | | | | | Phone: | [phone] | | | | | | [phone] | | | | | | | Fax: | | | | | | | [phone] | | +--------+--------+ + + + + Encounter Details +--------+ + + + + | Date | Type | Department | Care Team | Description | +--------+ + + + + | 07/16/ | Hospital | [facility] | LuanaamberIris hernandez, | Pulmonary nodule | | 2020 | Encounter | [facility] [address] | MD Erasmo ESCOTO | | | | | [address] | [place], [place] | | | | | [place], [place] | [address] | | | | | [address] | | | | | | [phone] | | | +--------+ + + + [...] | | | | | [place] | | | | | | [address] | | | | | | | | +--------+---------+ + + + documented as of this encounter Procedures + +--------+ + + + | Procedure Name | Priori | Date/Time | Associated Diagnosis | Comments | | | ty | | | | + +--------+ + + + | IMAGING REPORT - | | 07/28/2019 | | Results for this | | EXTERNAL SCAN | | 12:00 AM | | procedure are in the | | | | PDT | | results section. | + +--------+ + + + | CT CHEST WO CONTRAST | Routin | 07/17/2019 | Pulmonary nodule | Results for this | | | e | 3:44 PM | | procedure are in the | | | | PST | | results section. | + +--------+ + + + documented in this encounter Results IMAGING REPORT - EXTERNAL SCAN (07/28/2019 12:00 AM PDT) + + + | Narrative | Performed At | + + + | Ordered by an | | | unspecified provider. | | + + + CT Chest wo Contrast (07/17/2019 3:44 PM [...] Liliana Arenas Matthew | | Sign Date/Time: 07/20/2019 8:14 AM | + + + +---------+ + + | Performing | Address | City/State/Zipcode | Phone Number | | Organization | | | | + +---------+ + + | [facility] | | | | + +---------+ + + documented in this encounter Visit Diagnoses + + | Diagnosis | + + | Pulmonary nodule Solitary pulmonary nodule | + + documented in this encounter"
--- OUTSIDE RECORDS SUMMARY | ~2019-11-14 | XMS | Encounter Summary ---
Demographics + + + | Address | [address] | | | [place] [address] | + + + | Home Phone | | + + + | Preferred Language | Unknown | + + + | Marital Status | | + + + | Buddhism Affiliation | Unknown | + + + | Race | Unknown | + + + | Ethnic Group | Unknown | + + + Author + + + | Author | [facility] | | | and [place] | + + + | Organization | [facility] | | | [...] [place] | | | | | [address] | | + + + + + Care Team Providers + +------+ + | Care Cover Assembler Name | Role | Phone | + +------+ + | Raiza Slaughter PA-C | PCP | | + +------+ + Encounter Details +--------+ + + + + | Date | Type | Department | Care Team | Description | +--------+ + + + + | 02/19/ | Orders Only | [facility] | Conversion | | | 2016 | | CONVERSION [address] | Transaction, | | | | | [address] | Provider Unknown | | | | | [place] | [phone] | | | | | [address] | | | | | | [phone] | | | +--------+ + + + [...] [place] | | | | | | [id number] | | | | | | | | +--------+---------+ + + + documented as of this encounter Visit Diagnoses Not on filedocumented in this encounter"
--- OUTSIDE RECORDS SUMMARY | ~2019-11-14 | XMS | Encounter Summary ---
Demographics + + + | Address | [address] | | | [place] [address] | + + + | Home Phone | | + + + | Preferred Language | Unknown | + + + | Marital Status | | + + + | Church Affiliation | NRP | + + + | Race | or | + + + | Ethnic Group | Not or | + + + Author + + + | Author | [email or web address] | + + + | Organization | [facility] | + + + | Address | Unknown | + + + | Phone | Unavailable | + + + Support + + + + + | Name | Relationship | Address | Phone | + + + + + | Kim Sigo | ECON | [address] | | | | | [place] | | | | | [address] | | + + + + + | Key Escobedo | ECON | Unknown | | + + + + + | Cathleen Escobedo | ECON | Unknown | | + + + + + Care Team Providers + +------+ + | Care Crystal Grower Name | Role | Phone | + [...] Description | +--------+---------+ + + + | 10/27/ | Surgery | 6A Intra Op [address] | Ronald Barth MD | LEFT THORACOSCOPY, | | 2019 | | [address] | [address] | THORACOTOMY, LEFT | | | | [facility] | [address] | LOWER LOBE SUPERIOR | | | | Hospital Admitting | [place], [place] | SEGMENTECTOMY, | | | | Desk Located on the | [address] | BRONCHOSCOPY | | | | 9th floor | [phone] | | | | | [facility] [place] | | | | | | [address] | | | +--------+---------+ + + + Social History + + [...] Medications: Martita Escobedo III Home Medication Instructions EVA:[id number] Printed on:11/01/19 0822 Medication Information acetaminophen (TYLENOL [...] narcotic pain medic ations. Discharge Instructions: MARTITA BRADFORDAmy JULIANO was advised to contact the Thoracic Surgery [...] part of your post-operative visit either via [employer] (Factor 14) or to the email address [email or web address] with the subject "secure: wound check" with [...] | | | | | | release (/JAYCEE) | | | | | | + [...] for the catheter to come out. Dean uGevara MD [place] [id number] [email or web address] [address] ean Guevara MD - 10/31/2019 1:22 PM [...] oxycodone for oral agents Dean Guevara MD [facility] 11K [address] [email or web address] [id number] Associated attestation - Jon Lozano MD - 11/02/2019 5:18 PM PDTI saw and evaluated pat yusuf Martita Bradfordamy III with trainee: Dr. Guevara . I have reviewed the trainee's note and I a gree with the plan of care as documented. Jon Lozano MD Adult Acute Pain Service [facility] Pager#: [phone] Email: [email or web address] Rody Weinstein PA-C - 10/31/2019 10:07 AM PDT Thoracic Surgery Brief Inpatient Progress Note Patient name: MARTITA ESCOBEDO III Attending: Ronald Batrh MD Procedure: 10/28/2019 L VATS converted to [...] Rody Weinstein PA-C at 10/12 10:28 AM PDTChRubina Lewis MD - 10/30/2019 8:50 AM PDTFormatting of [...] regimen - Dispo: Ongoing [place] care Plan (ayp-srkyuzmk-jofonio issues); the brief history and exam findings are unchanged from above for this part of the note: - Discussed with Dr. Ronald Barth MDElectronically signed by Hernán Middleton MD at 10/29 9:20 AM PDTWhYudelka smith NP - 10/29/2019 11:02 AM PDTFormatting of [...] Will touch base with Thoracic Surgery Yudelka Anatoliy, RN [facility] Adult Pain Service Pager [phone] Team Pager [phone] Hernán Dimas MD - 10/29/2019 6:51 AM [...] regimen - Dispo: Ongoing [place] care Plan (cac-zhnypclj-vgzzkma issues); the brief history and exam findings [...] Rd | | | | | | [place], [place] | | | | | | [address] | | | | | | [phone] | | | | | | | [...] Note | + + | Service Account, [employer] Res In Interface - 10/31/2019 3:03 PM [...] At | + + + | EXAM: TN CHEST 1 VIEW HISTORY: s/p L VATS [...] Interface - 10/31/2019 5:28 PM PDT EXAM: TN CHEST 1 | | VIEW HISTORY: s/p [...] | + + + + + | [facility] | [address] | [place] [address] | | | SERVICES, CORE | PARK [...] MDRD equation recommended by the National | [facility] | | Kidney Disease Education Program. Estimated [...] + + + + + | [facility] | [address] | [place] [address] | | | SERVICES, CORE | ANTOINE [...] At | + + + | EXAM: TN CHEST 1 VIEW HISTORY: s/p left thoracotomy, [...] 10/29/2019 9:48 AM Preliminary: Barry Garza | | MD Joe Dictation initiated: Barry Diaz MD | | | 10/29/2019 9:48 AM | | + + + + + | Procedure Note | + + | Service Account, Radiant Res In Interface - 10/29/2019 9:50 AM PDT EXAM: TN CHEST 1 | | VIEW HISTORY: s/p [...] MD 10/29/2019 9:48 AM Preliminary: Barry | | MD Joe Dictation initiated: Barry Diaz MD 10/29/2019 9:48 [...] [facility] | [address] | [place] [address] | | | SERVICES, CORE | PARK [...] MDRD equation recommended by the National | [facility] | | Kidney Disease Education Program. Estimated [...] | + + + + + | [facility] | [address] | [place] [address] | | | BRADFORD, RUDY | ANTOINE [...] At | + + + | EXAM: TN CHEST 1 VIEW HISTORY: s/p left thoracotomy, [...] Preliminary: Barry Diaz MD Dictation initiated: Barry | | | MD Joe 10/29/2019 9:46 AM | | + + + + + | Procedure Note | + + | Service Account, Radiant Res In Interface - 10/29/2019 9:49 AM PDT EXAM: TN CHEST 1 | | VIEW HISTORY: s/p [...] STEPHANY | [address] | [place], [place] | | | DOM POINT OF CARE | [facility] | [address] | | | TESTS | | | [...] Pathology | | | | | | ResidentDaraturo Castro MD | | | | | | | | | | | | | | | | | | PathologistPathology, | | | | | | [facility] | | | | | [...] | | | | | | number [id number].A. Lymph | | | | | | [...] identified. | | | | | | Electronic Commerce Specialist sections | | | | | | [...] | | | | | | cassette D1.([id number]) | | | | + + + [...] | | | listed | Natalie Howie eLmons, | | | | | separately | ROHAN ERAZO | | | | | | | | | | | | Pathology Resident | | | | | | Shabbir Ramirez MD, PhD | | | | | | / PathologistPathology, | | | | | | [facility] | | | | | | University5:30 [...] PathologistPathology, | | | | | | [facility] | | | | | | University5:42 [...] PathologistPathology, | | | | | | [facility] | | | | | | University5:58 [...] + + + + + | [facility] | [address] | [place] [address] | | | PATHOLOGY | [address] [...] [facility] | [address] | [place], [place] | | | DOM POINT OF CARE | [address] | [address] | | | TESTS | | | [...] | | | d/t One [facility] | | G[place] | | [...] - ADULT | [address] | [place] [address] | | | ENDOCRINOLOGY | [address] | | | + + + + + documented in this encounter Visit Diagnoses Not on filedocumented in this encounter Administered Medications + +--------+ +--------+------+------+ | Medication Order | MAR | Action | Dose | Rate | Site | | | Action | Date | | | | + +--------+ +--------+------+------+ | acetaminophen (TYLENOL) tablet | Given | [...] | | | | | + +--------+ +--------+------+------+ +-------+ +--------+---+---+ | Given | 10/31/19 | [...] +---+---+ | | | +---+---+ + +-------+ +------+---+ + | bupivacaine (PF) | Given | 10/28/19 | 9 mL | | Surgical | | (MARCAINE,SENSORCAINE-MPF) 0.25 % | | 20 5:30 | | | Site | | (2.5 mg/mL) injection | | PM PDT | | | | | INTRAPROCEDURE PRN, Starting Wed | | | | | | | 10/28/19 at 1730, Until Wed | | | | | | | 10/28/19 at 1849 | | | | | | + +-------+ +------+---+ + +---+---+ | | | +---+---+ + [...] | | TWICE DAILY, First dose on Sat | | AM PDT | | | [...] | | | | | dose on [facility] 10/29/19 at 0900, | | AM [...] | | | + +---+ + +-------+ + +---+---+ | senna-docusate (SENOKOT [...] +-------+ +-------+---+---+ +---+---+ | | | +---+---+ documented in this encounter
--- OUTSIDE RECORDS SUMMARY | ~2019-11-14 | XMS | Encounter Summary ---
Demographics + + + | Address | [address] | | | [place] [address] | + + + | Home Phone | | + + + | Preferred Language | Unknown | + + + | Marital Status | | + + + | Religion Affiliation | Unknown | + + + | Race | Unknown | + + + | Ethnic Group | Unknown | + + + Author + + + | Author | [facility] | | | and [place] | + + + | Organization | [facility] | | | and [place] | + [...] [place] | | | | | [address] | | + + + + + Care Team Providers + +------+ + | Care Office Cashier Name | Role | Phone | + [...] Specialty | Cardiothoraci | Diagnoses | | [facility] | | | Services | c Surgery | Cancer of | [place], | CARDIOTHORACI | | | Required | | lower lobe | Rangaswamy | C SURGERY | | | | | of left lung | [address] | [address] [facility] | | | | | (HCC) | [address] | [facility] | | | | | | AVE | [address], | | | | | | [place], | [place] | | | | | | [place] [address] | [address] | | | | | | Phone: | Phone: | | | | | | [phone] | [phone] | | | | | | Fax: | Fax: | | | | | | [phone] | [phone] | +--------+ + + + + + Encounter Details +--------+ + + + + | Date | Type | Department | Care Team | Description | +--------+ + + + + | 10/07/ | Orders Only | [facility] | [place], | Cancer of lower lobe | | 2020 | | HEMATOLOGY AND | Jennifer Juarez MD | of left lung (HCC) | | | | ONCOLOGY [address] | [address] | (Primary Dx) | | | | [address] | [place] | | | | | [place] | [address] | | | | | [address] | | | | | | [phone] | | | +--------+ + + + [...] | | 2019 | Visit | | [address] | | | | | | [place] | | | | | | [address] | | | | | | | | +--------+---------+ + + + + + +--------+ + + | Name | Type | Priori | Associated Diagnoses | Order Schedule | | | | ty | | | + + +--------+ + + | Ambulatory referral | Outpatient | [address] | Cancer of lower | Ordered: 10/08/2019 | | to Cardiothoracic | Referral | | lobe of left lung | | | Surgery | | | (HCC) | | + + +--------+ + + documented as of this encounter Visit Diagnoses + + | Diagnosis | + + | Cancer of lower lobe of left lung (HCC) - Primary | + + documented in this encounter"
--- OUTSIDE RECORDS SUMMARY | ~2019-11-14 | XMS | Encounter Summary ---
Demographics + + + | Address | [address] | | | [place] [address] | + + + | Home Phone [...] + + | Author | [facility] [employer] [facility] | + + + | Organization | [facility] [employer] [facility] | + + + | Address | Unknown | + + + | Phone | Unavailable | + + + Support + + + + + | Name | Relationship | Address | Phone | + + + + + | Kim Sigo | ECON | [address] | | | | | [place] | | | | | [address] | | + + + + + | Key Escobedo | ECON | Unknown | | + + + + + | Cathleen Escobedo | ECON | Unknown | | + + + + + Care Team Providers + +------+ + | Care Portrait Painter Name | Role | Phone | + [...] | [address] | [place], | | | | | Physician's | [place] [address] | | | | | Pavilion, 2nd floor | [phone] | | | | | [place], [place] | | | | | | [address] | | | | | | [phone] | | | +--------+ + + + [...] | 2019 | cyn | | [address] [facility] | | | | | | [address] | | | | | | [place], [place] | | | | | | [address] | | | | | | [phone] | | | | | | | | +--------+ + + + + documented as of this encounter Visit Diagnoses Not on filedocumented in this encounter"
--- OUTSIDE RECORDS SUMMARY | ~2019-11-14 | XMS | Encounter Summary ---
Demographics + + + | Address | [address] | | | [place] [address] | + + + | Home Phone | | + + + | Preferred Language | Unknown | + + + | Marital Status | | + + + | Congregation Affiliation | Unknown | + + + | Race | Unknown | + + + | Ethnic Group | Unknown | + + + Author + + + | Author | [facility] | | | and [place] | + + + | Organization | [facility] | | | [...] [place] | | | | | [address] | | + + + + + Care Team Providers + +------+ + | Care Flow Floor Attendant Name | Role | Phone | + [...] Review | | | Mass of | [place], | Nuclear | | | | | left lung | Jennifer | Medicine 945 | | | | | Procedures | [address] | [address] | | | | | PET CT Skull | [address] | [address] | | | | | Base To Mid | AVE | [place], [place] | | | | | Thigh | [place], | [address] | | | | | | [place] [address] | Phone: | | | | | | Phone: | [phone] | | | | | | [phone] | Fax: | | | | | | Fax: | [phone] | | | | | | [phone] | | + +--------+ + + + + Reason for Visit Diagnostic/Screening (Urgent) + +--------+ + + + + | Status | Reason | Specialty | Diagnoses / | Referred By | Referred To | | | | | Procedures | Contact | Contact | + +--------+ + + + + | Pending | | Radiology | Diagnoses | | [facility] | | Review | | | Mass of | [place], | Nuclear | | | | | left lung | Jennifer | Medicine 945 | | | | | Procedures | [address] | [address] | | | | | PET CT Skull | [address] | [address] | | | | | Base To Mid | AVE | [place], [place] | | | | | Thigh | [place], | [address] | | | | | | [place] [address] | Phone: | | | | | | Phone: | [phone] | | | | | | [phone] | Fax: | | | | | | Fax: | [phone] | | | | | | [phone] | | + +--------+ + + + + Encounter Details +--------+ + + + + | Date | Type | Department | Care Team | Description | +--------+ + + + + | 09/09/ | Hospital | [facility] | [place], | Mass of left lung | | 2020 | Encounter | [facility] NUCLEAR | Jennifer Juarez MD | | | | | MEDICINE [address] | [address] | | | | | [address] | [place], [place] | | | | | [place], [place] | [address] | | | | | [address] | | | | | | [phone] | | | +--------+ + + + [...] mg by mouth | | 0 | 07/28/20 | | | hydroCHLOROthiazide | daily. | [...] [place] | | | | | | [address] | | | | | | | [...] + + documented in this encounter Results PET CT Skull Base [...] left lower | | | lobe mass measuring 18 x 15 mm. Again there [...] Testing | 65 - 99 mg/dL | [facility] | | | POC | performed at [facility] | | LABORATORY | | | | [place] [place];[place] | | | | | | [address] | | | | + + + + + + + + | Specimen | + + | | + + + + + + + | Performing | Address | City/State/Zipcode | Phone Number | | Organization | | | | + + + + + | [facility] | [address] | [place] [address] | [phone] | + + + + + documented [...] | | + +--------+ + +------+------+ | fluorine-18 FDG injection 12 | Given | 09/10/19 | 13.5 | | | | millicurie 12 millicurie, | | 20 11:00 | millicur | | | | Intravenous, ONCE, Coby 09/10/19 at | | AM PDT | ies | | | | 1100, For 1 dose | | | | | | + +--------+ + +------+------+ +---+---+ | | | +---+---+ documented in this encounter"
--- OUTSIDE RECORDS SUMMARY | ~2019-11-14 | XMS | Encounter Summary ---
Demographics + + + | Address | [address] | | | [place] [address] | + + + | Home Phone [...] + + | Author | [facility] | + + + | Organization | [facility] | + + + | Address | Unknown | + + + | Phone | Unavailable | + + + Support + + + + + | Name | Relationship | Address | Phone | + + + + + | Kim Sigo | ECON | [address] | | | | | [place] | | | | | [address] | | + + + + + | Key Escobedo | ECON | Unknown | | + + + + + | Cathleen Escobedo | ECON | Unknown | | + + + + + Care Team Providers + +------+ + | Care Eclectic Doctor Name | Role | Phone | + [...] | | | [place] [address] | [place] [address] | (Primary Dx) | | | | [address] | [phone] | | | | | [place], [place] | | | | | | [address] | | | | | | [phone] | | | +--------+---------+ + + + [...] 06/25/2014 9:24 AM PSTCard[facility]othoracic Surgery [facility] [place] Date of Service: 06/25/2014 Referring Providers: Andrea [...] Surgery Section Co-Director, Multidisciplinary Heart Valve Clinic [facility] | [email or web address] documented in this en counter Plan of [...] Rd | | | | | | [place], [place] | | | | | | [address] | | | | | | [phone] | | | | | | | | +--------+ + + + + documented as of this encounter Visit Diagnoses + + | Diagnosis | + + | H/O ascending aortic replacement - Primary Personal history of surgery to heart and | | great vessels, presenting hazards to health | + + documented in this encounter"
--- OUTSIDE RECORDS SUMMARY | ~2019-11-14 | XMS | Encounter Summary ---
Demographics + + + | Address | [address] | | | [place] [address] | + + + | Home Phone | | + + + | Preferred Language | Unknown | + + + | Marital Status | | + + + | Scientology Affiliation | NRP | + + + | Race | or | + + + | Ethnic Group | Not or | + + + Author + + + | Author | [facility] | + + + | Organization | [facility] [employer] [facility] | + + + | Address | Unknown | + + + | Phone | Unavailable | + + + Support + + + + + | Name | Relationship | Address | Phone | + + + + + | Kim Sigo | ECON | [address] | | | | | [place] | | | | | [address] | | + + + + + | Key Escobedo | ECON | Unknown | | + + + + + | Cathleen Escobedo | ECON | Unknown | | + + + + + Care Team Providers + +------+ + | Care Bronzer Name | Role | Phone | + +------+ + | Anupama Juárez | PCP | | + +------+ + Encounter Details +--------+ + + + + | Date | Type | Department | Care Team | Description | +--------+ + + + + | 10/27/ | Orders Only | Cardiothoracic | Ronald Barth MD | Primary cancer of | | 2020 | | Surgery at [facility] | [address] | left lower lobe of | | | | [address] | [address] | lung (HCC); Neoplasm | | | | Mailcode: Center | [place], [place] | | | | | [facility] [employer] and | [address] | | | | | [facility] | [phone] | | | | | [place], [place] | | | | | | [address] | | | | | | [phone] | | | +--------+ + + + [...] Barth MD | | | 2019 | chebinaled | | [address] [facility] | | | | | | [address] | | | | | | [place], [place] | | | | | | [address] | | | | | | [phone] | | | | | | | [...] + + documented in this encounter Results ANTIBODY SCREEN (10/28/2019 11:00 AM PDT) + [...] [facility] | [address] | [place] [address] | | | SERVICES, | [address] [...] + + | [facility] | [address] | [place] [address] | | | SERVICES, | [address] | | | | TRANSFUSION MEDICINE | | | | + + + + + INR (10/28/2019 11:00 AM [...] + + + + + | [facility] | [address] | [place] [address] | | | SERVICES, CORE | [address] | | | + + + + + documented in this encounter Visit Diagnoses + + | Diagnosis | + + | Primary cancer of left lower lobe of lung (HCC) | + + | Neoplasm Neoplasm of unspecified nature, site unspecified | + + documented in this encounter"
--- OUTSIDE RECORDS SUMMARY | ~2019-11-14 | XMS | Encounter Summary ---
Demographics + + + | Address | [address] | | | [place] [address] | + + + | Home Phone [...] + | Author | [facility] | + + + | Organization | [facility] | + + + | Address | Unknown | + + + | Phone | Unavailable | + + + Support + + + + + | Name | Relationship | Address | Phone | + + + + + | Kim Sigo | ECON | [address] | | | | | [place] | | | | | [address] | | + + + + + | Key Escobedo | ECON | Unknown | | + + + + + | Cathleen Escobedo | ECON | Unknown | | + + + + + Care Team Providers + +------+ + | Care Teletray Operator Name | Role | Phone | [...] THORACOTOMY, LEFT | | | | [facility] | [address] | LOWER LOBE SUPERIOR | | | | Hospital Admitting | [place], [place] | SEGMENTECTOMY, | | | | Desk Located on the | [address] | BRONCHOSCOPY | | | | 9th floor | [phone] | | | | | [facility] [place] | | | | | | [address] | | | +--------+---------+ + + + [...] Medications: Martita Escobedo III Home Medication Instructions EVA:[id number] Printed on:11/01/19 0822 Medication Information acetaminophen (TYLENOL [...] part of your post-operative visit either via [employer] (Bubbl) or to the email address [email or web address] with the subject "secure: wound check" [...] to come out. Dean Guevara MD [place] [id number] [email or web address] [address] ean Guevara MD - 10/31/2019 1:22 PM [...] oxycodone for oral agents Dean Guevara MD [facility] [address] [email or web address] [id number] Associated attestation - Jon Lozano MD - 11/02/2019 5:18 PM PDTI saw and evaluated pat yusuf Martita Bradfordamy III with trainee: Dr. Guevara . I have reviewed the trainee's note and I a gree with the plan of care as documented. Jon Lozano MD Adult Acute Pain Service [facility] Pager#: [phone] Email: [email or web address] Rody Weinstein PA-C - 10/31/2019 10:07 [...] Patient name: MARTITA ESCOBEDO III Attending: Ronald aBrth MD Procedure: 10/28/2019 24 hour events L [...] regimen - Dispo: Ongoing [place] care Plan (nop-nzaawsid-enipwyb issues); the brief history and exam findings [...] touch base with Thoracic Surgery Yudelka Anatoliy, R[employer] SCIENT[employer] Adult Pain Service Pager [phone] Team Pager [phone] Hernán Dimas MD - 10/29/2019 6:51 AM [...] regimen - Dispo: Ongoing [place] care Plan (wca-qhzojvja-qfcggyu issues); the brief history and exam findings [...] [address] | | | | | | [place], [place] | | | | | | [address] | | | | | | [phone] | | | | | | | [...] Note | + + | Service Account, Total Attorneys Res In Interface - 10/31/2019 3:03 PM [...] At | + + + | EXAM: ND CHEST 1 VIEW HISTORY: s/p L VATS [...] Interface - 10/31/2019 5:28 PM PDT EXAM: ND CHEST 1 | | VIEW HISTORY: s/p [...] | + + + + + | [facility] | [address] | [place] [address] | | | SERVICES, CORE | PARK [...] | | | LABORATORY | | | [employer] [employer] | | | SERVICES, | | | [...] MDRD equation recommended by the National | [facility] | | Kidney Disease Education Program. Estimated [...] + + + + + | [facility] | [address] | [place] [address] | | | SERVICES, CORE | ANTOINE [...] At | + + + | EXAM: ND CHEST 1 VIEW HISTORY: s/p left thoracotomy, [...] Interface - 10/29/2019 9:50 AM PDT EXAM: ND CHEST 1 | | VIEW HISTORY: s/p [...] [facility] | [address] | [place] [address] | | | SERVICES, CORE | PARK [...] | | | LABORATORY | | | [place] | | | SERVICES, | | | [...] MDRD equation recommended by the National | [facility] | | Kidney Disease Education Program. [...] | + + + + + | [facility] | [address] | [place] [address] | | | BRADFORD, RUDY | ANTOINE [...] At | + + + | EXAM: ND CHEST 1 VIEW HISTORY: s/p left thoracotomy, [...] Interface - 10/29/2019 9:49 AM PDT EXAM: ND CHEST 1 | | VIEW HISTORY: s/p [...] [facility] | [address] | [place], [place] | | | DOM POINT OF CARE | [facility] | [address] | | | TESTS | | | [...] PathologistPathology, | | | | | | [facility] | | | | | [...] | | | | | | number [id number]. Lymph | | | | | | [...] identified. | | | | | | Secretarial Stenographer sections | | | | | | [...] | | | | | | cassette D1.([id number]) | | | | + + + [...] PathologistPathology, | | | | | | [facility] | | | | | | University5:30 [...] PathologistPathology, | | | | | | [facility] | | | | | | University5:42 [...] PathologistPathology, | | | | | | [facility] | | | | | | [...] + + + + + | [facility] | [address] | [place] [address] | | | PATHOLOGY | [address] [...] [facility] | [address] | [place], [place] | | | DOM POINT OF CARE | [address] | [address] | | | TESTS | | | [...] | | | d/t [facility] | | [place] | | [...] - ADULT | [address] | [place] [address] | | | ENDOCRINOLOGY | [address] [...]
--- OUTSIDE RECORDS SUMMARY | ~2019-11-14 | XMS | Encounter Summary ---
Demographics + + + | Address | [address] | | | [place] [address] | + + + | Home Phone | | + + + | Preferred Language | Unknown | + + + | Marital Status | | + + + | Latter Day Affiliation | NRP | + + + | Race | or | + + + | Ethnic Group | Not or | + + + Author + + + | Author | [facility] | + + + | Organization | [facility] | + + + | Address | Unknown | + + + | Phone | Unavailable | + + + Support + + + + + | Name | Relationship | Address | Phone | + + + + + | Kim Sigo | ECON | [address] | | | | | [place] | | | | | [address] | | + + + + + | Key Escobedo | ECON | Unknown | | + + + + + | Cathleen Escobedo | ECON | Unknown | | + + + + + Care Team Providers + +------+ + | Care Geophysical Laboratory Supervisor Name | Role | Phone | + +------+ + | Anupama Juárez | PCP | | + +------+ + Reason for Referral Rehabilitation Therapy (Routine) +--------+--------+ + + + + | Status | Reason | Specialty | Diagnoses / | Referred By | Referred To | | | | | Procedures | Contact | Contact | +--------+--------+ + + + + | Closed | | | Diagnoses | Wiley, | | | | | | Aortic | Maryana Orozco, | | | | | | aneurysm | PA-C [address] | | | | | | without | [address] | | | | | | rupture | [address] | | | | | | ([facility]) | Rd | | | | | | Procedures | [place], [place] | | | | | | CONSULT TO | [address] | | | | | | CARDIAC | Phone: | | | | | | RE[facility]AB - [facility] | [phone] | | | | | | | Fax: | | | | | | | [phone] | | +--------+--------+ + + + + Reason for Visit AUTH/CERT +--------+--------+ + [...] | +--------+ + + + + | 09/01/ | Hospital | [facility] [address] | [place], | | | 2013 - | Encounter | [id number] | [address] | | | | | [facility] | [place] [address] | | | 09/09/ | | [place], [place] | [phone] | | | 2013 | | [address] | | | | | | [phone] | | | +--------+ + + + [...] Treatment, and Complications Brief Hospital Course: Mr Ecsobedo is a 58 yo male was transferred from [facility] on 09/01 for treatment of ne wly diagnosed large ascending aortic aneurysm. He was admitted to the ICU for tight blood pr essure control. He was evaluated by cardiac surgery and consented for aortic aneurysm repair . He was then taken to the OR on 09/04. He did well in surgery and was transferred back to [facility] ICU to be weaned from the [...] vital during the first 2 weeks at [employer] [facility] [employer] [facility] [employer]. No driving for 1 month or while [...] at discharge as appropriate: BP: 125/68 mmHg (09/09/1335) Pulse: 92 (09/09/13734) Resp: 18 (09/09/13734) Weight: 101.1 kg (222 lb 14.2 oz) [...] Maryana Jama PA-C Division of Cardiothoracic Surgery [facility] Mail Code [id number] [place] [facility] [place] [address] documented in this en counter Discharge Instructions Instructions Bobo Ramsey - 09/09/2013Patient Education Materials: aneurysm repair; p ost-op Additional Instructions: sternal/wound precautions Discharge Nurse: Bobo Ramsey Date: 09/09/2013 Discharge Time: 11:18 AM AttachmentsThe following attachments cannot be sent through Care Everywhere.ANEURYSM: THORA CIC AORTIC : POSTOP (BULGARIAN)documented in this encounter Medications at Time of [...] non-focal s1-s2 tachy CTA bilateral Soft, non-tender [place], warm, dry Sternal incision is c,d,i Lab [...] x-ray: pending Assessment/Plan: 58 yo man from [facility], admitted for large ascending aortic [...] Deconditioned-- PT/OT (Electronically Signed) Ronald Cook PA-C [facility] Cardiac Surgery onald Cook - 09/07/2013 7:5 [...] bilateral s1-s2 RRR Sternal incision is c,d,i [place], warm, dry No peripheral edema Alert and oriented x 3, non-focal Chemistries: Last 72 Hours (or 3 results): Recent Labs 09/04/13180709/05/1312009/06/1322209/06/13201109/07/13 0528 NA 144 142 135* -- 130* [...] (or 3 results) Recent Labs 09/05/13 0121 09/06/1322209/07/13 0528 WBC 12.81* 16.35* 13.70* HB 10.6* 10.4* 10.6* HCT 31.8* 30.3* 31.5* PLT 162 170 192 Lab Results Component Value Date INRPT 1.35* 09/04/2013 Chest x-ray: 09/06/2013 Mild hydrostatic pulmonary edema, new since the 09/05/2013 exam. Small layering right pleural effusion. Markedly hypoexpanded lungs. Assessment/Plan: 58 yo man from [facility], admitted for large ascending aortic [...] Deconditioned-- PT/OT (Electronically Signed) Ronald Cook PA-C [facility] Cardiac Surgery Chaitanya Cho MD - 4 2:17 PM PDT [facility] DAILY Attending PROGRESS NOTE Attending Pager: [phone] I have personally reviewed history and physical with the [facility] housestaff and have indepe ndently confirmed findings. I agree with the assessment and have participated in plan. Off gtts. No interval concerns of note. Dx: 1)Ascending aortic aneurysm-S/P repair 2)Essemtial hypertension 3)Chronic pain 4)Impaired glucose tolerance by history 5)Agitation-Resolved Plan:Increasing beta alexy, etc. Ongoing management of pain and glucose> Stable for floor Chaitanya Wallace MD Division Pulmonary-Critical Care Medicine Mailcode N-67 Pager [phone]/ [facility] DEPARTMENT: [facility], [facility]- [phone] Place of Service: - Date of Service: 09/06/2013 CSN: [id number] Modifiers:GC Resident Involved: yes Suggested CPT: 88559 Subsequent Visit Prob Focused/Low Complexity 15 min Martin Zee PA-C - 09/06/2013 7:44 AM PDT [facility] DAILY PROGRESS NOTE (PA) Team Pager: [phone] Attendin Author: MARTIN HOUSE PA-C Attending Revenue Cycle Specialist: Operating Surgeon: MD Destin Garcia MD POD# [...] discussed with Dr. Wallace. CARLITOS Yu PA-C [facility] DEPARTMENT: [facility] ICU CARDIAC [[id number]] Place of Service:- Inpatient Date of Service: 09/06/13 CSN: [id number] Suggested Modifier: None Suggested CPT: TO LINUX NETWORK ADMINISTRATOR Zahra Levine MD - 09/05/2013 8:08 PM PDT [facility] ATTENDING PLUMBER'S ASSISTANT DAILY PROGRESS NOTE Team Pager: [phone] Attending Pager: [phone] Author: ZAHRA COOL MD Care plan d/w [...] current care in ICU increased BB DC Iesha Gentle diuresis DISPO: critical ill in ICU [...] is critically ill. Zahra Cool MD PhD Public Message Service Supervisor Department of Anesthesiology and Perioperative Medicine [facility] DEPARTMENT: [facility] ICU CARDIAC [[id number]] Place of Service:- Inpatient Date of Service: 09/05/13 CSN: [id number] Suggested Modifier: None Suggested CPT: TO LINUX NETWORK ADMINISTRATOR Chaitanya Cho MD - 09/05/2013 3:44 PM PDT [facility] DAILY Attending PROGRESS NOTE Attending Pager: [phone] I have personally reviewed history and physical with the [facility] housestaff and have indepe ndently confimred findings. I agree with the assessment and have participated in plan. No significant events overnight.following extubation. On nicardipine gtt. Dx: 1)Ascending aortic aneurysm-S/P repair 2)Essemtial hypertension 3)Chronic pain 4)Impaired glucose tolerance by history 5)Agitation-Precipitant?-Improved Plan:adding in beta alexy with downward titration of nicadripine as tolerated Chaitanya Wallace MD Division Pulmonary-Critical Care Medicine Mailcode N-67 Pager [phone]/ [facility] DEPARTMENT: [facility]- [phone] Place of Service: - Date of Service: 09/05/2013 CSN: [id number] Modifiers: Resident Involved: yes Suggested CPT: 42183 Subsequent Visit Detailed/High complexity 35 min Martin Zee PA-C - 09/05/2013 9:14 AM PDT [facility] DAILY PROGRESS NOTE (PA) Team Pager: [phone] Attendin Author: MARTIN HOUSE PA-C Attending Revenue Cycle Specialist: Operating Surgeon: MD Destin Garcia MD POD# [...] discussed with Dr. Wallace. CARLITOS Yu PA-C [facility] DEPARTMENT: [facility] ICU CARDIAC [[id number]] Place of Service:- Inpatient Date of Service: 09/05/13 CSN: [id number] Suggested Modifier: None Suggested CPT: TO LINUX NETWORK ADMINISTRATOR Zahra Levine MD - 09/04/2013 8:48 PM PDT [facility] ATTENDING PLUMBER'S ASSISTANT DAILY PROGRESS NOTE Team Pager: [phone] Attending Pager: [phone] Author: ZAHRA COOL MD ATTESTATION: Seen with CARLOS MANUEL House. Please see his note for details. I reviewed the documented findings, all data and the recent imaging available 58 y.o. male s/p repair of ascending aortic aneurysm with Dacron graft on 09/04/13. HPI: Severe ascending aortic aneurysm 24 Hour Events: Surgery CXR: ETT and lines in good position, no ptx LINES: Iesha, CVC?PAC, lennon, blaanaya, wire ASSESSMENT & PLAN: See PAnnoam for [...] is critically ill. Zahra Cool MD PhD Public Message Service Supervisor Department of Anesthesiology and Perioperative Medicine [facility] DEPARTMENT: [facility] ICU CARDIAC [[id number]] Place of Service:- Inpatient Date of Service: 09/04/13 CSN: [id number] Suggested Modifier: None Suggested CPT: TO LINUX NETWORK ADMINISTRATOR Martin Zee P A-C - 09/04/2013 9:43 AM PDT [facility] DAILY PROGRESS NOTE (PA) Team Pager: [phone] Attendin Author: MARTIN HOUSE PA-C Attending Revenue Cycle Specialist: Operating Surgeon: MD Destin Garcia MD ICU day # 4 HPI: Richard Escobedo is a 58 y.o. male with a h/o HTN, HLD who is transferred from outside [facility] after an ascending aortic aneurysm [...] discussed with Dr. Wallace. CARLITOS Yu PA-C [facility] DEPARTMENT: [facility] ICU CARDIAC [[id number]] Place of Service:- Inpatient Date of Service: 09/03/13 CSN: [id number] Suggested Modifier: None Suggested CPT: TO LINUX NETWORK ADMINISTRATOR Chaitanya Cho MD - 09/04/2013 8:00 AM PDT [facility] DAILY Attending PROGRESS NOTE Attending Pager: [phone] Date:09/04/2013 Author: CHAITANYA WALLACE MD Primary Service [...] this basename: FIO2, PH, PCO2, PO2, HCO3, CTSRV5OIR, Q3IFYORB, ABGEXECESS, in the last 72 hours GI: [...] Plan:Continuing current sedation and antihypertensive approach till emgey Chaitanya Wallace MD Division Pulmonary-Critical Care Medicine Mailcode [facility]-67 Pager [phone]/ [facility] DEPARTMENT: [facility] [phone] Place of Service: [facility] Date of Service: 09/04/2013 CSN: [id number] Modifiers:GC Resident Involved: No Suggested CPT: 62879 Subsequent Visit Exp Prob Foc/Mod Complexity 25 min Mckayla Snyder MD - 09/03/2013 9:07 PM [id number] NIGHT PLUMBER'S ASSISTANT PROGRESS NOTE Team Pager: [phone] Attendin Events of the day, patient condition, and plan reviewed with the day team. Please see their note for details. I have examined the patient and reviewed the relevant data. HPI: 58 yo male with HTN, HL and borderline DM, now with ascending aortic aneurysm diagnosed aft er presenting to referring hospital with dyspnea. Transferred to [facility] on 09/01/13 for further management. Arrived with [...] this critically ill patient. Jihan Mendoza MD Special Projects Coordinator Department of Anesthesiology and Nicolette-Operative Medicine Critical Care [facility] DEPARTMENT: [facility] ICU CARDIAC [[id number]] Place of Service:- Inpatient Date of Service: 09/03/2013 CSN: [id number] Suggested Modifier: Suggested CPT: TO LINUX NETWORK ADMINISTRATOR cGirr, Alex Echols DO - 09/03/2013 7:56 AM PDT [facility] DAILY PROGRESS NOTE (Resident) Team Pager: [phone] Attendin Author: ALEX RIOS DO Attending Revenue Cycle Specialist: Operating Surgeon: MD Destin Garcia MD ICU day # 3 HPI: Richard Escobedo is a 58 y.o. male with a h/o HTN, HLD who is transferred from outside [facility] after an ascending aortic aneurysm [...] Cho MD - 09/03/2013 7:54 AM PDT [facility] DAILY Attending PROGRESS NOTE Attending Pager: [phone] I have personally reviewed history and physical with the [facility] housestaff and have indepe ndently examined patient. [...] Wallace MD Division Pulmonary-Critical Care Medicine Mailcode [facility]-67 Pager [phone]/ [facility] DEPARTMENT: [facility], [facility]- [phone] Place of Service: - Date of Service: 09/03/2013 CSN: [id number] Modifiers:GC Resident Involved: yes Suggested CPT: 11462 Critical Care, Initial 30-74 minutes Total Critical Care Time:32 minutes Mckayla Snyder MD - 09/02/2013 6:42 PM [id number] NIGHT PLUMBER'S ASSISTANT PROGRESS NOTE Team Pager: [phone] Attendin Events of the day, patient condition, and plan reviewed with the day team. Please see their note for details. I have examined the patient and reviewed the relevant data. HPI: 58 yo male with HTN, HL and borderline DM, now with ascending aortic aneurysm diagnosed aft er presenting to referring hospital with dyspnea. Transferred to [facility] on 09/01/13 for further management. Arrived with [...] risk of aortic ruptur caio Mendoza MD Special Projects Coordinator Department of Anesthesiology and Nicolette-Operative Medicine Critical Care [facility] DEPARTMENT: [facility] ICU CARDIAC [[id number]] Place of Service:- Inpatient Date of Service: 09/02/2013 CSN: [id number] Suggested Modifier: Suggested CPT: TO LINUX NETWORK ADMINISTRATOR Kemi Damon - 10:45 AM PDTTransthoracic echocardiogram completed. Final report to follow. Chaitanya Cho MD - 2013 7:54 AM PDT 8C DAILY Attending PROGRESS NOTE Attending Pager: [phone] I have personally reviewed history and physical with the [facility] housestaff and have indepe ndently examined patient. I agree with the assessment and have participated in plan. On high dose esmolol. With HR near target. No symptoms referable to dissection Dx: 1)Ascending aortic aneurysm 2)Essemtial hypertension 3)Chronic pain 4)Impaired glucose tolerance by history Plan:Attemptoing to transition onto orals with aggressive beta blockade ,e tc Chaitanya Wallace MD Division Pulmonary-Critical Care Medicine Mailcode [facility]-67 Pager [phone]/ [facility] DEPARTMENT: [facility]- [phone] Place of Service: Date of Service: 09/02/2013 CSN: [id number] Modifiers:GC Resident Involved: yes Suggested CPT: 25083 Subsequent Visit Detailed/High complexity 35 min Alex Johnston DO - 09/02/2013 7:51 AM PDT 8C DAILY PROGRESS NOTE (Resident) Team Pager: [phone] Attendin Author: ALEX RIOS DO Attending Revenue Cycle Specialist: Operating Surgeon: MD Destin Garcia MD ICU day # 2 HPI: Richard Escobedo is a 58 y.o. male with a h/o HTN, HLD who is transferred from outside [facility] after an ascending aortic aneurysm was discovered on CTA. He was having chest pain and was hypertensive in PCP office and sent to ED for dissection workup. Large ascending aortic aneurysm (66cm x 7 cm in length) was discovered without e/o dissection. Patient then transf erred here for evaluation by CT surgery. Procedure date TBD. 24 Hour Events: CT reviewed by [facility] radiology. Per verbal report: no involvement of [...] | 2019 | cyn | | [address] [facility] | | | | | | [address] | | | | | | [place], [place] | | | | | | [address] | | | | | | [phone] | | | | | | | [...] the | | | | PDT | ([facility]) | results section. | + +--------+ + + + | POTASSIUM, POC | Routin | 09/04/2013 | Aortic aneurysm | Results for this | | | e | 5:09 PM | without rupture | procedure are in the | | | | PDT | ([facility]) | results section. | + +--------+ + + + | GLUCOSE, POC | Routin | 09/04/2013 | Aortic aneurysm | Results for this | | | e | 5:09 PM | without rupture | procedure are in the | | | | PDT | ([facility]) | results section. | + +--------+ + + + | ARTERIAL BLOOD GAS, | Routin | 09/04/2013 | Aortic aneurysm | Results for this | | POC | e | 5:09 PM | without rupture | procedure are in the | | | | PDT | ([facility]) | results section. | + +--------+ + + + | CHLORIDE, POC | Routin | 09/04/2013 | Aortic aneurysm | Results for this | | | e | 5:09 PM | without rupture | procedure are in the | | | | PDT | ([facility]) | results section. | + +--------+ + + + | ALEXANDRA IONIZED CA, POC | Routin | 09/04/2013 | Aortic aneurysm | Results for this | | | e | 5:09 PM | without rupture | procedure are in the | | | | PDT | ([facility]) | results section. | + +--------+ + + + | LACTATE (ART), POC | Routin | 09/04/2013 | Aortic aneurysm | Results for this | | ISTAT | e | 4:45 PM | without rupture | procedure are in the | | | | PDT | ([facility]) | results section. | + +--------+ + + + | HEMOGLOBIN-LACY PEREZ | Routin | 09/04/2013 | Aortic aneurysm | Results for this | | | e | 4:45 PM | without rupture | procedure are in the | | | | PDT | ([facility]) | results section. | + +--------+ + + + | SODIUM POC | Routin | 09/04/2013 | Aortic aneurysm | Results for this | | | e | 4:45 PM | without rupture | procedure are in the | | | | PDT | ([facility]) | results section. | + +--------+ + + + | POTASSIUM POC | Routin | 09/04/2013 | Aortic aneurysm | Results for this | | | e | 4:45 PM | without rupture | procedure are in the | | | | PDT | ([facility]) | results section. | + +--------+ + + + | GLUCOSE POC | Routin | 09/04/2013 | Aortic aneurysm | Results for this | | | e | 4:45 PM | without rupture | procedure are in the | | | | PDT | ([facility]) | results section. | + +--------+ + + + | ARTERIAL BLOOD GAS, | Routin | 09/04/2013 | Aortic aneurysm | Results for this | | POC | e | 4:45 PM | without rupture | procedure are in the | | | | PDT | ([facility]) | results section. | + +--------+ + + + | CHLORIDE, POC | Routin | 09/04/2013 | Aortic aneurysm | Results for this | | | e | 4:45 PM | without rupture | procedure are in the | | | | PDT | ([facility]) | results section. | + +--------+ + + + | ALEXANDRA IONIZED CA, POC | Routin | 09/04/2013 | Aortic aneurysm | Results for this | | | e | 4:45 PM | without rupture | procedure are in the | | | | PDT | ([facility]) | results section. | + +--------+ + + + | BECKY (SERJIO)LACY | Routin | 09/04/2013 | Aortic aneurysm | Results for this | | ISTAT | e | 4:15 PM | without rupture | procedure are in the | | | | PDT | ([facility]) | results section. | + +--------+ + + + | TANIA-ANA POC | Routin | 09/04/2013 | Aortic aneurysm | Results for this | | | e | 4:15 PM | without rupture | procedure are in the | | | | PDT | ([facility]) | results section. | + +--------+ + + + | SODIUM POC | Routin | 09/04/2013 | Aortic aneurysm | Results for this | | | e | 4:15 PM | without rupture | procedure are in the | | | | PDT | ([facility]) | results section. | + +--------+ + + + | POTASSIUM, POC | Routin | 09/04/2013 | Aortic aneurysm | Results for this | | | e | 4:15 PM | without rupture | procedure are in the | | | | PDT | ([facility]) | results section. | + +--------+ + + + | GLUCOSE, POC | Routin | 09/04/2013 | Aortic aneurysm | Results for this | | | e | 4:15 PM | without rupture | procedure are in the | | | | PDT | ([facility]) | results section. | + +--------+ + + + | ARTERIAL BLOOD GAS, | Routin | 09/04/2013 | Aortic aneurysm | Results for this | | POC | e | 4:15 PM | without rupture | procedure are in the | | | | PDT | ([facility]) | results section. | + +--------+ + + + | CHLORIDE, POC | Routin | 09/04/2013 | Aortic aneurysm | Results for this | | | e | 4:15 PM | without rupture | procedure are in the | | | | PDT | ([facility]) | results section. | + +--------+ + + + | ALEXANDRA IONIZED CA, POC | Routin | 09/04/2013 | Aortic aneurysm | Results for this | | | e | 4:15 PM | without rupture | procedure are in the | | | | PDT | ([facility]) | results section. | + +--------+ + + + | LACTATE (ART) POC | Routin | 09/04/2013 | Aortic aneurysm | Results for this | | ISTAT | e | 3:59 PM | without rupture | procedure are in the | | | | PDT | ([facility]) | results section. | + +--------+ + + + | HEMOGLOBIN-MULUGETAOX, POC | Routin | 09/04/2013 | Aortic aneurysm | Results for this | | | e | 3:59 PM | without rupture | procedure are in the | | | | PDT | ([facility]) | results section. | + +--------+ + + + | SODIUM, POC | Routin | 09/04/2013 | Aortic aneurysm | Results for this | | | e | 3:59 PM | without rupture | procedure are in the | | | | PDT | ([facility]) | results section. | + +--------+ + + + | POTASSIUM, POC | Routin | 09/04/2013 | Aortic aneurysm | Results for this | | | e | 3:59 PM | without rupture | procedure are in the | | | | PDT | ([facility]) | results section. | + +--------+ + + + | GLUCOSE, POC | Routin | 09/04/2013 | Aortic aneurysm | Results for this | | | e | 3:59 PM | without rupture | procedure are in the | | | | PDT | ([facility]) | results section. | + +--------+ + + + | ARTERIAL BLOOD GAS, | Routin | 09/04/2013 | Aortic aneurysm | Results for this | | POC | e | 3:59 PM | without rupture | procedure are in the | | | | PDT | ([facility]) | results section. | + +--------+ + [...] the | | | | PDT | ([facility]) | results section. | + +--------+ + + + | SODIUM, POC | Routin | 09/04/2013 | Aortic aneurysm | Results for this | | | e | 3:33 PM | without rupture | procedure are in the | | | | PDT | ([facility]) | results section. | + +--------+ + [...] the | | | | PDT | ([facility]) | results section. | + +--------+ + + + | ARTERIAL BLOOD GAS, | Routin | 09/04/2013 | Aortic aneurysm | Results for this | | POC | e | 3:33 PM | without rupture | procedure are in the | | | | PDT | ([facility]) | results section. | + +--------+ + [...] the | | | | PDT | ([facility]) | results section. | + +--------+ + + + | HEMOGLOBIN-COOX, POC | Routin | 09/04/2013 | Aortic aneurysm | Results for this | | | e | 3:02 PM | without rupture | procedure are in the | | | | PDT | ([facility]) | results section. | + +--------+ + + + | SODIUM, POC | Routin | 09/04/2013 | Aortic aneurysm | Results for this | | | e | 3:02 PM | without rupture | procedure are in the | | | | PDT | ([facility]) | results section. | + +--------+ + + + | POTASSIUM, POC | Routin | 09/04/2013 | Aortic aneurysm | Results for this | | | e | 3:02 PM | without rupture | procedure are in the | | | | PDT | ([facility]) | results section. | + +--------+ + + + | GLUCOSE, POC | Routin | 09/04/2013 | Aortic aneurysm | Results for this | | | e | 3:02 PM | without rupture | procedure are in the | | | | PDT | ([facility]) | results section. | + +--------+ + + + | ARTERIAL BLOOD GAS, | Routin | 09/04/2013 | Aortic aneurysm | Results for this | | POC | e | 3:02 PM | without rupture | procedure are in the | | | | PDT | ([facility]) | results section. | + +--------+ + + + | CHLORIDE, POC | Routin | 09/04/2013 | Aortic aneurysm | Results for this | | | e | 3:02 PM | without rupture | procedure are in the | | | | PDT | ([facility]) | results section. | + +--------+ + + + | ALEXANDRA ROBERT CA POC | Routin | 09/04/2013 | Aortic aneurysm | Results for this | | | e | 3:02 PM | without rupture | procedure are in the | | | | PDT | ([facility]) | results section. | + +--------+ + + + | LACTATE (ART), POC | Routin | 09/04/2013 | Aortic aneurysm | Results for this | | ISTAT | e | 2:07 PM | without rupture | procedure are in the | | | | PDT | ([facility]) | results section. | + +--------+ + + + | HEMOGLOBIN-ANA POC | Routin | 09/04/2013 | Aortic aneurysm | Results for this | | | e | 2:07 PM | without rupture | procedure are in the | | | | PDT | ([facility]) | results section. | + +--------+ + + + | SODIUM, POC | Routin | 09/04/2013 | Aortic aneurysm | Results for this | | | e | 2:07 PM | without rupture | procedure are in the | | | | PDT | ([facility]) | results section. | + +--------+ + + + | POTASSIUM, POC | Routin | 09/04/2013 | Aortic aneurysm | Results for this | | | e | 2:07 PM | without rupture | procedure are in the | | | | PDT | ([facility]) | results section. | + +--------+ + + + | GLUCOSE, POC | Routin | 09/04/2013 | Aortic aneurysm | Results for this | | | e | 2:07 PM | without rupture | procedure are in the | | | | PDT | ([facility]) | results section. | + +--------+ + + + | ARTERIAL BLOOD GAS, | Routin | 09/04/2013 | Aortic aneurysm | Results for this | | POC | e | 2:07 PM | without rupture | procedure are in the | | | | PDT | ([facility]) | results section. | + +--------+ + + + | CHLORIDE, POC | Routin | 09/04/2013 | Aortic aneurysm | Results for this | | | e | 2:07 PM | without rupture | procedure are in the | | | | PDT | ([facility]) | results section. | + +--------+ + + + | ALEXANDRA IONIZED CA, POC | Routin | 09/04/2013 | Aortic aneurysm | Results for this | | | e | 2:07 PM | without rupture | procedure are in the | | | | PDT | ([facility]) | results section. | + +--------+ + [...] + | Transcriptions | + + | Other, Faculty - 09/10/2013 11:35 PM PDT | + [...] - [facility] | [address] | [place], [place] | | | DOM POINT OF CARE | [address] | [address] | | | TESTS | | | [...] + + + | [facility] | [address] | [place], [place] | | | DOM POINT OF CARE | [address] | [address] | | | TESTS | | | [...] [facility] | [address] | [place], [place] | | | DOM POINT OF CARE | [address] | [address] | | | TESTS | | | | + + + + + X-RAY PORTABLE CHEST 1 VIEW (09/08/2013 9:51 AM PDT) + + + + + + | Component | Value | Ref Range | Performed | Pathologist | | | | | At | Signature | + + + + + + | X-RAY | STUDY: [place] CHEST 1 VIEW | | | | [...] | | | | | | CODY 09/08/2013 11:15 AM | | | | | | | | | | + + + + + + + + | Specimen | + + | | + + + +---------+ + + | Performing | Address | City/State/Zipcode | Phone Number | | Organization | | | | + +---------+ + + | [facility] | | | | | [...] | | | LABORATORY | | | LIBERIAN | | | SERVICES, | | | [...] | + + + + + | [facility] | [address] | [place] [address] | | | SERVICES, CORE | ANTOINE [...] [facility] | [address] | [place], [place] | | | [facility] | [address] | [address] | | | TESTS | | | [...] - [facility] | [address] | [place], [place] | | | DOM POINT OF CARE | [address] | [address] | | | TESTS | | | [...] + + + | [facility] | [address] | [place], [place] | | | DOM POINT OF CARE | [address] | [address] | | | TESTS | | | [...] view image for the detailed interpretation from [employer] results. | CARDIOLOGY | + + + + + | Procedure Note | + + | Interface, Cardiology Results - 09/10/2013 9:39 AM PDT Please click on view image | | for the detailed interpretation from [employer] results. | + + + + + + + | Performing | Address | City/State/Zipcode | Phone Number | | Organization | | | | + + + + + | [facility] | [address] | [place], [place] | | | CARDIOLOGY | [address] | [address] | | + + + + + [...] [facility] | [address] | [place], [place] | | | [facility] | [address] | [address] | | | TESTS | | | [...] | + + + + + | [facility] | [address] | [place] [address] | | | SERVICES, CORE | ANTOINE [...] | | | LABORATORY | | | LIBERIAN | | | SERVICES, | | | [...] [facility] | [address] | [place] [address] | | | SERVICES, CORE | PARK [...] | + + + + + | [facility] | [address] | [place] [address] | | | SERVICES, CORE | ANTOINE [...] [facility] | [address] | [place], [place] | | | DOM POINT OF CARE | [address] | [address] | | | TESTS | | | [...] - [facility] | [address] | [place], [place] | | | DOM POINT OF CARE | [address] | [address] | | | TESTS | | | [...] [facility] | [address] | [place], [place] | | | [facility] | [address] | [address] | | | TESTS | | | [...] [facility] | [address] | [place], [place] | | | DOM POINT OF CARE | [address] | [address] | | | TESTS | | | [...] [facility] | [address] | [place], [place] | | | DOM POINT OF CARE | [address] | [address] | | | TESTS | | | [...] + + + | [facility] | [address] | [place], [place] | | | [facility] | [address] | [address] | | | TESTS | | | [...] [facility] | [address] | [place], [place] | | | DOM POINT OF CARE | [address] | [address] | | | TESTS | | | [...] YOLANDA | | | | | | HJ 09/06/2013 | | | | | | [...] [facility] | [address] | [place], [place] | | | [facility] | [address] | [address] | | | TESTS | | | [...] [facility] | [address] | [place], [place] | | | [facility] | [facility] | [address] | | | TESTS | | | | + + + + + CAPILLARY BLOOD GLUCOSE (NO CHG) POC (09/06/2013 3:47 AM PDT) + +---------+ [...] [facility] | [address] | [place], [place] | | | [facility] | [address] | [address] | | | TESTS | | | [...] (H) | 60 - 99 mg/dL | [facility] - | | | GLUCOSE, | | [...] [facility] | [address] | [place], [place] | | | [facility] | [address] | [address] | | | TESTS | | | [...] | + + + + + | [facility] | [address] | [place] [address] | | | SERVICES, CORE | [address] | | | + + + + + MAGNESIUM, PLASMA (09/06/2013 2:23 AM PDT) + +-------+ + + + | Component | Value | Ref Range | Performed | Pathologist | | | | | At | Signature | + +-------+ + + + | MAGNESIUM,P | 1.9 | 1.8 - 2.5 mg/dL | [facility] | | | LASMA | | | [...] | + + + + + | [facility] | [address] | [place] [address] | | | SERVICES, CORE | ANTOINE [...] | | | LABORATORY | | | LIBERIAN | | | SERVICES, | | | [...] the MDRD equation recommended by the | [facility] | | National Kidney Disease Education Program. [...] | + + + + + | [facility] | [address] | [place] [address] | | | RUDY FELDER | ANTOINE [...] 98 | 60 - 99 mg/dL | [facility] [...] [facility] | [address] | [place], [place] | | | [facility] | [address] | [address] | | | TESTS | | | [...] [facility]D | [address] | [place], [place] | | | [facility] | [address] | [address] | | | TESTS | | | [...] [facility] | [address] | [place], [place] | | | DOM POINT OF CARE | [address] | [address] | | | TESTS | | | [...] [facility] | [address] | [place], [place] | | | [facility] | [facility] | [address] | | | TESTS | | | [...] [facility]D | [address] | [place], [place] | | | [facility] | [address] | [address] | | | TESTS | | | [...] [facility] | [address] | [place], [place] | | | [facility] | [address] | [address] | | | TESTS | | | [...] + | [facility] | [address] | [place], [place] | | | [facility] | [facility] | [address] | | | TESTS | | | [...] H[facility]MOND | [address] | [place], [place] | | | [facility] | [address] | [address] | | | TESTS | | | [...] [facility] | [address] | [place] | | | [facility] | [address] | [address] | | | TESTS | | | [...] [facility] | [address] | [place], [place] | | | [facility] | [address] | [address] | | | TESTS | | | [...] H[facility]D | [address] | [place], [place] | | | [facility] | [address] | [address] | | | TESTS | | | [...] [facility] | [address] | [place] | | | [facility] | [address] | [address] | | | TESTS | | | [...] [facility] | [address] | [place], [place] | | | [facility] | [facility] | [address] | | | TESTS | | | [...] H[facility]D | [address] | [place], [place] | | | [facility] | [address] | [address] | | | TESTS | | | [...] [facility] | [address] | [place], [place] | | | [facility] | [address] | [address] | | | TESTS | | | [...] and | | | | | | Dahlonega-Asher catheter. | | | | | | [...] | | | | | | FUSS 09/05/2013 11:28 AM | | | | [...] [facility] | [address] | [place] [address] | | | RUDY FELDER | ANTOINE [...] | + + + + + | [facility] | [address] | [place] [address] | | | SERVICES, CORE | ANTOINE [...] [facility] | [address] | [place] [address] | | | SERVICES, CORE | [address] [...] | | | LABORATORY | | | LIBERIAN | | | SERVICES, | | | [...] | + + + + + | [facility] | [address] | [place] [address] | | | SERVICES, CORE | [address] | | | + + + + + 12 LEAD ECG (09/04/2013 7:06 PM PDT) + + + + + + | Component | Value | Ref Range | Performed | Pathologist | | | | | At | Signature | + + + + + + | VENTRICULAR | 66 | BPM | [facility] | | | RATE | | [...] | | | | | MICKEY WISE ([id number]) on | | | | | | 09/06/2013 3:26:49 PM | | | | + + + + + + + + | Specimen | + + | | + + + + + | Narrative | Performed At | + + + | Please click | [facility] | | on view image for the detailed interpretation from [employer] results. | CARDIOLOGY | + + + + + | Procedure Note | + + | Interface, Cardiology Results - 09/06/2013 3:26 PM PDT Please click on view image | | for the detailed interpretation from [employer] results. | + + + + + + + | Performing | Address | City/State/Zipcode | Phone Number | | Organization | | | | + + + + + | [facility] | [address] | [place], [place] | | | CARDIOLOGY | [address] | [address] | | + + + + + [...] | | | | | | right IJ Dahlonega-Asher | | | | | | catheter [...] IJ | | | | | | Dahlonega-Asher catheter, ET | | | | | [...] + | [facility] | [address] | [place] [address] | | | SERVICES, CORE | [address] [...] [facility] | [address] | [place] [address] | | | SERVICES, CORE | [address] | | | + + + + + MAGNESIUM, PLASMA (09/04/2013 6:08 PM PDT) + +-------+ + + + | Component | Value | Ref Range | Performed | Pathologist | | | | | At | Signature | + +-------+ + + + | MAGNESIUM,P | 2.3 | 1.8 - 2.5 mg/dL | [facility] | | | NEAL | | | [...] + + | [facility] | [address] | [place] [address] | | | SERVICES, RUDY | [address] [...] [facility] | [address] | [place] [address] | | | SERVICES, CORE | [address] [...] [facility] | [address] | [place] [address] | | | SERVICES, CORE | [address] [...] [facility] | [address] | [place] [address] | | | SERVICES, CORE | ANTOINE [...] | | | LABORATORY | | | LIBERIAN | | | SERVICES, | | | [...] | + + + + + | [facility] | [address] | [place] [address] | | | SERVICES, CORE | [address] [...] [facility] | [address] | [place], [place] | | | [facility] | [address] | [address] | | | TESTS | | | [...] | + + + + + | [facility] | [address] | [place] [address] | | | SERVICES, CORE | ANTOINE [...] [facility] | [address] | [place] [address] | | | RUDY FELDER | ANTOINE [...] + + + + | PRODUCT | [id number] | | [facility] | | | UNIT [...] + + + + | BLOOD | [id number] | | [facility] | | | PRODUCT [...] | + + + + + | [facility] | [address] | [place] [address] | | | PATHOLOGY | [address] [...] + + + + | PRODUCT | [id number] | | [facility] | | | UNIT [...] + + + + | BLOOD | [id number] | | [facility] | | | PRODUCT [...] | + + + + + | [facility] | [address] | [place] [address] | | | PATHOLOGY | [address] | | | + + + + + LACTATE (ART), POC (09/04/2013 5:09 PM PDT) + +-------+ + + + | Component | Value | Ref Range | Performed | Pathologist | | | | | At | Signature | + +-------+ + + + | LACTATE | 1.0 | 0.5 - 1.6 | [facility] - | | | ARTERIAL, | | [...] [facility] | [address] | [place], [place] | | | [facility] | [address] | [address] | | | TESTS | | | | + + + + + SODIUM, POC (09/04/2013 5:09 PM PDT) + +-------+ [...] [facility] | [address] | [place], [place] | | | [facility] | [address] | [address] | | | TESTS | | | [...] [facility] | [address] | [place], [place] | | | [facility] | [facility] | [address] | | | TESTS | | | [...] mg/dL | [facility] - | | | POC | | [...] [facility] | [address] | [place], [place] | | | [facility] | [address] | [address] | | | TESTS | | | [...] [facility]D | [address] | [place], [place] | | | DOM POINT OF CARE | [address] | [address] | | | TESTS | | | [...] [facility] | [address] | [place], [place] | | | HILL, POINT OF CARE | [facility] | [address] | | | TESTS | | | | + + + + + HEMOGLOBIN-COOX, POC (09/04/2013 5:09 PM PDT) + + [...] [facility] | | | | | | DOM POINT | | [...] H[facility]D | [address] | [place], [place] | | | [facility] | [address] | [address] | | | TESTS | | | [...] - [facility] | [address] | [place], [place] | | | DOM POINT OF CARE | [address] | [address] | | | TESTS | | | | + + + + + LACTATE (ART), POC (09/04/2013 4:45 PM PDT) + +-------+ [...] [facility]D | [address] | [place], [place] | | | [facility] | [address] | [address] | | | TESTS | | | [...] [facility] | [address] | [place], [place] | | | [facility] | [address] | [address] | | | TESTS | | | [...] + | [facility] | [address] | [place], [place] | | | DOM POINT OF CARE | [address] | [address] | | | TESTS | | | [...] [facility]D | [address] | [place], [place] | | | [facility] | [address] | [address] | | | TESTS | | | | + + + + + LACY LANIER (09/04/2013 4:45 PM PDT) + +---------+ + [...] [facility] | [address] | [place], [place] | | | [facility] | [address] | [address] | | | TESTS | | | [...] - [facility] | [address] | [place], [place] | | | [facility] | [address] | [address] | | | TESTS | | | | + + + + + HEMOGLOBIN-COOX, POC (09/04/2013 4:45 PM PDT) + + [...] STE[facility]ANY | [address] | [place], [place] | | | [facility] | [address] | [address] | | | TESTS | | | [...] [facility] | [address] | [place], [place] | | | DOM POINT OF CARE | [address] | [address] | | | TESTS | | | | + + + + + LACTATE (ART), POC (09/04/2013 4:15 PM PDT) + +-------+ [...] STE[facility]ANY | [address] | [place], [place] | | | [facility] | [facility] | [address] | | | TESTS | | | [...] M[facility]AN[facility] | [address] | [place], [place] | | | [facility] | [facility] | [address] | | | TESTS | | | [...] [facility] | [address] | [place], [place] | | | [facility] | [facility] | [address] | | | TESTS | | | [...] H[facility]D | [address] | [place], [place] | | | DOM POINT OF CARE | [address] | [address] | | | TESTS | | | | + + + + + LACY LANIER (09/04/2013 4:15 PM PDT) + +---------+ + + + | Component | Value | Ref Range | Performed | Pathologist | | | | | At | Signature | + +---------+ + + + | CHLORIDE, | 112 (H) | 97 - 108 mmol/L | [facility] - | | | POC | | | [facility] | | | | | | [facility] | | [...] [facility] | [address] | [place], [place] | | | [facility] | [facility] | [address] | | | TESTS | | | [...] | | | POC | | | HILL POINT | | | | | | [...] [facility] | [address] | [place], [place] | | | [facility] | [address] | [address] | | | TESTS | | | [...] [facility] | [address] | [place], [place] | | | DOM POINT OF CARE | [address] | [address] | | | TESTS | | | [...] H[facility]D | [address] | [place], [place] | | | [facility] | [address] | [address] | | | TESTS | | | [...] MARDANIELLAAM | [address] | [place], [place] | | | [facility] | [address] | [address] | | | TESTS | | | | + + + + + SODIUM, POC (09/04/2013 3:59 PM PDT) + +-------+ + + + | Component | Value | Ref Range | Performed | Pathologist | | | | | At | Signature | + +-------+ + + + | SODIUM, POC | 136 | 134 - 143 | [facility] [...] [facility] | [address] | [place], [place] | | | DOM POINT OF CARE | [address] | [address] | | | TESTS | | | [...] [facility] | | | | | | DOM POINT | | [...] H[facility]MOND | [address] | [place], [place] | | | [facility] | [address] | [address] | | | TESTS | | | [...] MARDANIELLAAM | [address] | [place], [place] | | | [facility] | [address] | [address] | | | TESTS | | | [...] [facility] | [address] | [place], [place] | | | [facility] | [facility] | [address] | | | TESTS | | | [...] HAMMOND | [address] | [place], [place] | | | DOM [facility] | [address] | [address] | | | TESTS | | | | + + + + + HEMOGLOBIN-MULUGETAOXLACY (09/04/2013 3:59 PM PDT) + + + [...] [facility] | | | | | | HILL, POINT | | [...] - [facility] | [address] | [place], [place] | | | DOM POINT OF CARE | [facility] | [address] | | | TESTS | | | [...] | | [facility] - | | | SUMANTH, | | | [facility] | | | [...] STE[facility]ANY | [address] | [place], [place] | | | [facility] | [facility] | [address] | | | TESTS | | | | + + + + + LACTATE (ART)LACY (09/04/2013 3:33 PM PDT) + +-------+ + [...] STEPHANY | [address] | [place], [place] | | | [facility] | [facility] | [address] | | | TESTS | | | [...] LITA[facility] | [address] | [place], [place] | | | [facility] | [address] | [address] | | | TESTS | | | [...] H[facility]MOND | [address] | [place], [place] | | | [facility] | [facility] | [address] | | | TESTS | | | [...] MARDANIELLAAM | [address] | [place], [place] | | | [facility] | [facility] | [address] | | | TESTS | | | [...] | | | POC | | | [facility] | | | | | [...] [facility] | [address] | [place], [place] | | | [facility] | [address] | [address] | | | TESTS | | | [...] H[facility]MOND | [address] | [place], [place] | | | [facility] | [facility] | [address] | | | TESTS | | | | + + + + + HEMOGLOBIN-LACY PEREZ (09/04/2013 3:33 PM PDT) + + + [...] [facility] | [address] | [place], [place] | | | [facility] | [address] | [address] | | | TESTS | | | [...] STEPHANY | [address] | [place], [place] | | | [facility] | [address] | [address] | | | TESTS | | | [...] STEPHANY | [address] | [place], [place] | | | [facility] | [address] | [address] | | | TESTS | | | [...] HAMMOND | [address] | [place], [place] | | | [facility] | [address] | [address] | | | TESTS | | | [...] STEPHANY | [address] | [place], [place] | | | [facility] | [address] | [address] | | | TESTS | | | [...] - STEPHANY | [address] | [place], [place] | | | [facility] | [address] | [address] | | | TESTS | | | [...] + + + | AUTUMN HAMMOND | [address] | [place], [place] | | | [facility] | [address] | [address] | | | TESTS | | | [...] MARQUAM | [address] | [place], [place] | | | [facility] | [address] | [address] | | | TESTS | | | [...] HAMMOND | [address] | [place], [place] | | | [facility] | [address] | [address] | | | TESTS | | | [...] MARQUAM | [address] | [place], [place] | | | [facility] | [facility] | [address] | | | TESTS | | | [...] STEPHANY | [address] | [place], [place] | | | [facility] | [facility] | [address] | | | TESTS | | | [...] HAMMOND | [address] | [place], [place] | | | [facility] | [address] | [address] | | | TESTS | | | | + + + + + SHANELLE POC (09/04/2013 2:07 PM PDT) + +-------+ [...] MARQUAM | [address] | [place], [place] | | | [facility] | [address] | [address] | | | TESTS | | | [...] - MARQUAM | [address] | [place], [place] | | | [facility] | [address] | [address] | | | TESTS | | | | + + + + + CHLORIDE, POC (09/04/2013 2:07 PM PDT) + +---------+ + [...] HAMMOND | [address] | [place], [place] | | | [facility] | [address] | [address] | | | TESTS | | | [...] MARQUAM | [address] | [place], [place] | | | [facility] | [address] | [address] | | | TESTS | | | [...] HAMMOND | [address] | [place], [place] | | | [facility] | [address] | [address] | | | TESTS | | | [...] MARQUAM | [address] | [place], [place] | | | [facility] | [address] | [address] | | | TESTS | | | [...] + + + | AUTUMN HAMMOND | [address] | [place], [place] | | | [facility] | [address] | [address] | | | TESTS | | | [...] | + + + + + | [facility] | [address] | [place] [address] | | | SERVICES, CORE | [address] | | | + + + + + MAGNESIUM, PLASMA (09/04/2013 2:02 AM PDT) + +-------+ + + + | Component | Value | Ref Range | Performed | Pathologist | | | | | At | Signature | + +-------+ + + + | MAGNESIUM,P | 1.8 | 1.8 - 2.5 mg/dL | [facility] | | | LASMA | | | [...] [facility] | [address] | [place] [address] | | | SERVICES, CORE | [address] [...] | | | LABORATORY | | | LIBERIAN | | | SERVICES, | | | [...] | + + + + + | [facility] | [address] | [place] [address] | | | SERVICES, CORE | ANTO[address] [...] by:Elif | | | | | | M. Jose, | | | | | | M.D./Surgical Pathology | | | | | | FellowMarta Loza, | | | | | | M.D./PathologistT: | | | | | | 4:zacarias [...] focallyfibrous. | | | | | | Cytologist | | | | | | sections [...] Loza | | | | | | Proi | | | | | | eli [...] | + + + + + | [facility] | [address] | [place] [address] | | | PATHOLOGY | [address] | | | + [...] MARQUAM | [address] | [place], [place] | | | [facility] | [address] | [address] | | | TESTS | | | [...] HAMMOND | [address] | [place], [place] | | | [facility] | [address] | [address] | | | TESTS | | | [...] + + + + | PRODUCT | [id number] | | [facility] | | | UNIT [...] + + + + | BLOOD | [id number] | | [facility] | | | PRODUCT [...] DEPARTMENT OF | [address] | [place] [address] | | | PATHOLOGY | [address] [...] + + + + | PRODUCT | [id number] | | [facility] | | | UNIT [...] + + + + | BLOOD | [id number] | | [facility] | | | PRODUCT [...] | + + + + + | [facility] | [address] | [place] [address] | | | PATHOLOGY | [address] [...] + + + + | PRODUCT | [id number] | | [facility] | | | UNIT [...] + + + + | BLOOD | [id number] | | [facility] | | | PRODUCT [...] DEPARTMENT OF | [address] | [place] [address] | | | PATHOLOGY | [address] [...] + + + + | PRODUCT | [id number] | | [facility] | | | UNIT [...] + + + + | BLOOD | [id number] | | [facility] | | | PRODUCT [...] | + + + + + | [facility] | [address] | [place] [address] | | | PATHOLOGY | [address] [...] [facility] | [address] | [place], [place] | | | [facility] | [address] | [address] | | | TESTS | | | [...] <1.005 (L) | 1.005 - 1.030 | [facility] | | | GRAVITY | | | [...] | + + + + + | [facility] | [address] | [place] [address] | | | SERVICES, CORE | P[address] [...] [facility] | [address] | [place] [address] | | | SERVICES, CORE | ANTOINE [...] | + + + + + | [facility] | [address] | [place] [address] | | | RUDY FELDER | [address] | | | + [...] [facility] | [address] | [place], [place] | | | DOM POINT OF CARE | [facility] | [address] | | | TESTS | | | [...] | + + + + + | [facility] | [address] | [place] [address] | | | SERVICES, CORE | PARK [...] | + + + + + | [facility] | [address] | [place] [address] | | | SERVICES, CORE | PARK [...] | | | LABORATORY | | | LIBERIAN | | | SERVICES, | | | [...] | + + + + + | [facility] | [address] | [place] [address] | | | SERVICES, CORE | ANTOINE [...] [facility] | [address] | [place], [place] | | | [facility] | [address] | [address] | | | TESTS | | | [...] + | [facility] | [address] | [place], [place] | | | [facility] | [address] | [address] | | | TESTS | | | [...] [facility] | [address] | [place] [address] | | | SERVICES, CORE | ANTOINE [...] [facility] | [address] | [place] [address] | | | SERVICES, CORE | PARK [...] | | | LABORATORY | | | LIBERIAN | | | SERVICES, | | | [...] | + + + + + | [facility] | [address] | [place] [address] | | | SERVICES, [facility] | [address] | | | + + + + + TRANSTHORACIC ECHOCARDIOGRAM, ADULT (09/02/2013 12:00 AM PDT) + + + | Narrative | Performed At | + + + | | | | | | + + + + + | Procedure Note | + + | Maria A Vizcaino - 09/02/2013 11:30 AM PDT | + + X-RAY PORTABLE CHEST 1 VIEW (09/01/2013 10:43 PM PDT) + + + + + + | Component | Value | Ref Range | Performed | Pathologist | | | | | At | Signature | + + + + + + | X-RAY | STUDY: [place] CHEST 1 VIEW | | | | [...] | | | | | | RUCHI 09/02/2013 9:39 | | | | | [...] | + + + + + | [facility] | [address] | [place] [address] | | | SERVICES, | [address] [...] [facility] | [address] | [place] [address] | | | SERVICES, | [address] [...] [facility] | [address] | [place] [address] | | | SERVICES, CORE | PARK [...] | + + + + + | [facility] | [address] | [place] [address] | | | SERVICES, CORE | [address] | | | + + + + + MAGNESIUM, PLASMA (09/01/2013 9:08 PM PDT) + +-------+ + + + | Component | Value | Ref Range | Performed | Pathologist | | | | | At | Signature | + +-------+ + + + | MAGNESIUM,P | 1.8 | 1.8 - 2.5 mg/dL | AUTUMN | | | NEAL | | | [...] [facility] | [address] | [place] [address] | | | BRADFORD, RUDY | ANTOINE [...] | | | LABORATORY | | | LIBERIAN | | | SERVICES, | | | [...] | + + + + + | [facility] | [address] | [place] [address] | | | SERVICES, CORE | [address] [...] (H) | 60 - 99 mg/dL | [facility] - | | | GLUCOSE, | | [...] [facility] | [address] | [place], [place] | | | DOM POINT OF CARE | [address] | [address] | | | TESTS | | | [...] HODGES | | | | | | ([id number]) on 09/04/2013 | | | | | | 10:06:49 PM | | | | + + + + + + + + | Specimen | + + | | + + + + + | Narrative | Performed At | + + + | Please click | [facility] | | on view image for the detailed interpretation from [employer] results. | CARDIOLOGY | + + + + + | Procedure Note | + + | Interface, Cardiology Results - 09/04/2013 10:07 PM PDT Please click on view image | | for the detailed interpretation from [employer] results. | + + + + + + + | Performing | Address | City/State/Zipcode | Phone Number | | Organization | | | | + + + + + | [facility] | [address] | [place], [place] | | | CARDIOLOGY | [address] | [address] | | + + + + + documented in this encounter Visit Diagnoses + + | Diagnosis | + + | Aortic aneurysm without rupture (HCC) - Primary Aortic aneurysm of unspecified site | | without mention of rupture | + + documented in this encounter Administered Medications + +---------+ + +------+------+ | Medication Order | MAR | Action | Dose | Rate | Site | | | Action | Date | | | | + +---------+ + +------+------+ | acetaminophen (OFIRMEV) IV | New Bag | 09/05/19 | 1,000 mg | | | | 1,000 mg 1,000 mg, intravenous, | | 14 7:41 | | | | | ONCE, 1 dose, 09/04/13 at 1930 | | PM PDT | | | | + +---------+ + +------+------+ +---+---+ | | | +---+---+ + +-------+ +--------+---+---+ | acetaminophen (TYLENOL) tablet | Given | 09/03/19 | 650 mg | | | | 325-650 mg 325-650 mg, oral, | | 14 7:02 | | | | | EVERY 4 HOURS NEEDED, Starting | | PM PDT | | | | | 09/01/13 at 2103, Until Fri | | | | | | | 09/04/13 at 1802, mild pain | | | | | | + +-------+ +--------+---+---+ +-------+ +--------+---+---+ | Given | 09/02/19 | 650 mg | | | | | 14 9:39 | | | | | | PM PDT | | | | +-------+ +--------+---+---+ +---+---+ | | | +---+---+ + +-------+ +--------+---+---+ | acetaminophen (TYLENOL) tablet | Given | 09/07/19 | 650 mg | | | | 650 mg 650 mg, oral, EVERY 4 | | 14 7:53 | | | | | HOURS WHILE AWAKE, 8 doses, First | | PM PDT | | | | | dose on 09/05/13 at 0700, | | | | | | | Last dose on 09/06/13 at 2000 | | | | | | + +-------+ +--------+---+---+ +-------+ +--------+---+---+ | Given | 09/07/19 | 650 mg | | | | | 14 4:06 | | | | | | PM PDT | | | | +-------+ +--------+---+---+ | Given | 09/07/19 | 650 mg | | | | | 14 12:11 | | | | | | PM PDT | | | | +-------+ +--------+---+---+ +---+---+ | | | +---+---+ + +-------+ +--------+---+---+ | acetaminophen (TYLENOL) tablet | Given | 09/10/19 | 650 mg | | | | 650 mg 650 mg, oral, EVERY | | 14 8:46 | | | | | HOURS NEEDED, Starting Mon | | AM PDT | | | | | 09/07/13 at 0000, Until Wed | | | | | | | 09/09/13 at 1943, mild pain, | | | | | | | headache, fever | | | | | | + +-------+ +--------+---+---+ +-------+ +--------+---+---+ | Given | 09/09/19 | 650 mg | | | | | 14 8:53 | | | | | | PM PDT | | | | +-------+ +--------+---+---+ | Given | 09/09/19 | 650 mg | | | | | 14 4:07 | | | | | | PM PDT | | | | +-------+ +--------+---+---+ +---+---+ | | | +---+---+ + +---------+ +--------+---+---+ | albumin human (BUMINATE, | New Bag | 09/05/19 | 12.5 g | | | | FLEXBUMIN) 5 % injection 12.5 g | | 14 7:01 | | | | | 12.5 g (250 mL), intravenous, TWO | | PM PDT | | | | | TIMES POST CARDIAC SURGERY PRN, | | | | | | | Starting 09/04/13 at 1734, | | | | | | | Until 09/05/13 at 0533 | | | | | | + +---------+ +--------+---+---+ +---------+ +--------+---+---+ | New Bag | 09/05/19 | 12.5 g | | | | | 14 6:44 | | | | | | PM PDT | | | | +---------+ +--------+---+---+ +---+---+ | | | +---+---+ + +---------+ +--------+---+---+ | albumin human (BUMINATE, | New Bag | 09/05/19 | 12.5 g | | | | FLEXBUMIN) 5 % injection 12.5 g | | 14 8:25 | | | | | 12.5 g, intravenous, NEEDED, | | PM PDT | | | | | Starting 09/04/13 at 1802, | | | | | | | Until 09/05/13 at 0918, | | | | | | | hemodynamic instability | | | | | | + +---------+ +--------+---+---+ +---+---+ | | | +---+---+ + +-------+ +-------+---+---+ | aluminum-magnesium | Given | 09/06/19 | 15 mL | | | | hydroxide-simethicone (MAALOX; | | 14 5:03 | | | | | MYLANTA) 200-200-20 mg/5 mL | | AM PDT | | | | | suspension 15 mL 15 mL, oral, | | | | | | | FOUR TIMES DAILY NEEDED, | | | | | | | Starting 09/05/13 at 0418, | | | | | | | Until 09/09/13 at 1943, | | | | | | | dyspepsia | | | | | | + +-------+ +-------+---+---+ +---+---+ | | | +---+---+ + +-------+ +------+---+---+ | amLODIPine (NORVASC) tablet 5 | Given | 09/09/19 | 5 mg | | | | mg 5 mg, oral, DAILY, First dose | | 14 8:32 | | | | | on 09/05/13 at 1930, Until | | AM PDT | | | | | Discontinued | | | | | | + +-------+ +------+---+---+ +-------+ +------+---+---+ | Given | 09/08/19 | 5 mg | | | | | 14 8:43 | | | | | | AM PDT | | | | +-------+ +------+---+---+ | Given | 09/07/19 | 5 mg | | | | | 14 8:15 | | | | | | AM PDT | | | | +-------+ +------+---+---+ +---+---+ | | | +---+---+ + +-------+ +------+---+---+ | amLODIPine (NORVASC) tablet 5 | Given | 09/10/19 | 5 mg | | | | mg 5 mg, oral, DAILY, First dose | | 14 8:46 | | | | | (after last modification) on Sat | | AM PDT | | | | | 09/09/13 at 0900, Until | | | | | | | Discontinued | | | | | | + +-------+ +------+---+---+ +---+---+ | | | +---+---+ + +-------+ +-------+---+---+ | aspirin chewable tablet 81 mg | Given | 09/10/19 | 81 mg | | | | 81 mg, oral, DAILY, First dose on | | 14 8:46 | | | | | 09/05/13 at 0900, Until | | AM PDT | | | | | Discontinued | | | | | | + +-------+ +-------+---+---+ +-------+ +-------+---+---+ | Given | 09/09/19 | 81 mg | | | | | 14 8:32 | | | | | | AM PDT | | | | +-------+ +-------+---+---+ | Given | 09/08/19 | 81 mg | | | | | 14 8:44 | | | | | | AM PDT | | | | +-------+ +-------+---+---+ +---+---+ | | | +---+---+ + +---------+ +-----+---+---+ | calcium chloride 10 % (100 | New Bag | 09/05/19 | 1 g | | | | mg/mL) injection 1 g 1 g, | | 14 6:44 | | | | | intravenous, ONE TIME POST | | PM PDT | | | | | CARDIAC SURGERY PRN, Starting Fri | | | | | | | 09/04/13 at 1734, Until Sat | | | | | | | 09/05/13 at 0533 | | | | | | + +---------+ +-----+---+---+ +---+---+ | | | +---+---+ + +---------+ +-----+---+---+ | calcium chloride IV 1 g 1 g, | New Bag | 09/06/19 | 1 g | | | | intravenous, NEEDED, Starting | | 14 4:38 | | | | | 09/04/13 at 1802, Until Sat | | AM PDT | | | | | 09/05/13 at 0918, hypocalcemia | | | | | | | (iCa less than 1.15) | | | | | | + +---------+ +-----+---+---+ +---+---+ | | | +---+---+ + +-------+ +---------+---+---+ | carvedilol (COREG) tablet 12.5 | Given | 09/03/19 | 12.5 mg | | | | mg 12.5 mg, oral, TWICE DAILY | | 14 9:37 | | | | | WITH MEALS, First dose on Sat | | AM PDT | | | | | 09/02/13 at 0915, Until | | | | | | | Discontinued | | | | | | + +-------+ +---------+---+---+ +---+---+ | | | +---+---+ + +---------+ +-------+---+---+ | cefUROXime (ZINACEF) IV 1.5 g | New Bag | 09/06/19 | 1.5 g | | | | 1.5 g, intravenous, EVERY 8 | | 14 7:41 | | | | | HOURS, 2 doses, First dose on Fri | | AM PDT | | | | | 09/04/13 at 2000, Last dose on | | | | | | | 09/05/13 at 0615 | | | | | | + +---------+ +-------+---+---+ +---------+ +-------+---+---+ | New Bag | 09/05/19 | 1.5 g | | | | | 14 10:32 | | | | | | PM PDT | | | | +---------+ +-------+---+---+ +---+---+ | | | +---+---+ + +-------+ +-------+---+---+ | chlorhexidine (PERIDEX) | Given | 09/03/19 | 15 mL | | | | mouthwash 15 mL 15 mL, oral, | | 14 9:35 | | | | | EVERY 6 HOURS, First dose on Sat | | AM PDT | | | | | 09/02/13 at 0400, Until | | | | | | | Discontinued | | | | | | + +-------+ +-------+---+---+ +-------+ +-------+---+---+ | Given | 09/03/19 | 15 mL | | | | | 14 4:27 | | | | | | AM PDT | | | | +-------+ +-------+---+---+ +---+---+ | | | +---+---+ + +-------+ +-------+---+---+ | chlorhexidine (PERIDEX) | Given | 09/05/19 | 15 mL | | | | mouthwash 15 mL 15 mL, oral, | | 14 8:22 | | | | | TWICE DAILY, 12 doses, First dose | | AM PDT | | | | | on Sat09/03/13 at 2100, Last | | | | | | | dose on Sat09/09/13 at 0900 | | | | | | + +-------+ +-------+---+---+ +-------+ +-------+---+---+ | Given | 09/04/19 | 15 mL | | | | | 14 8:11 | | | | | | PM PDT | | | | +-------+ +-------+---+---+ +---+---+ | | | +---+---+ + +-------+ +-------+---+---+ | chlorhexidine (PERIDEX) | Given | 09/05/19 | 15 mL | | | | mouthwash 15 mL 15 mL, oral, | | 14 8:58 | | | | | EVERY 6 HOURS, First dose on Fri | | PM PDT | | | | | 09/04/13 at 2200, Until | | | | | | | Discontinued | | | | | | + +-------+ +-------+---+---+ +---+---+ | | | +---+---+ + +-------+ +-------+---+---+ | chlorhexidine (PERIDEX) | Given | 09/08/19 | 15 mL | | | | mouthwash 15 mL 15 mL, oral, | | 14 8:43 | | | | | TWICE DAILY, 6 doses, First dose | | AM PDT | | | | | (after last modification) on Sat | | | | | | | 09/05/13 at 0900, Last dose on Mon | | | | | | | 09/07/13 at 2100 | | | | | | + +-------+ +-------+---+---+ +-------+ +-------+---+---+ | Given | 09/07/19 | 15 mL | | | | | 14 8:48 | | | | | | PM PDT | | | | +-------+ +-------+---+---+ | Given | 09/07/19 | 15 mL | | | | | 14 8:14 | | | | | | AM PDT | | | | +-------+ +-------+---+---+ +---+---+ | | | +---+---+ + +-------+ +------+---+---+ | cyclobenzaprine (FLEXERIL) | Given | 09/04/19 | 5 mg | | | | tablet 5 mg 5 mg, oral, AT | | 14 10:27 | | | | | BEDTIME NEEDED, Starting Wed | | PM PDT | | | | | 09/02/13 at 2149, Until Fri | | | | | | | 09/04/13 at 1802, muscle spasms | | | | | | + +-------+ +------+---+---+ +-------+ +------+---+---+ | Given | 09/03/19 | 5 mg | | | | | 14 11:02 | | | | | | PM PDT | | | | +-------+ +------+---+---+ +---+---+ | | | +---+---+ + + + + +--------+---+ | dexmedetomidine 400 mcg in NaCl | Rate/Dos | 09/04/19 | 0.7 | 16.68 | | | 0.9 % IV infusion 0.3-0.7 | e Change | 14 1:05 | mcg/kg/h | mL/hr | | | mcg/kg/hr | | AM PDT | r | | | | 95.3 kg (rounded to 7.15-16.68 | | | | | | | mL/hr), intravenous, CONTINUOUS, | | | | | | | Starting [facility] 09/03/13 at 0045, | | | | | | | Until Sat09/03/13 at 0122 | | | | | | + + + + +--------+---+ +---------+ + +-------+---+ | New Bag | 09/04/19 | 0.3 | 7.15 | | | | 14 12:45 | mcg/kg/h | mL/hr | | | | AM PDT | r | | | +---------+ + +-------+---+ +---+---+ | | | +---+---+ + + + + +--------+---+ | dexmedetomidine 400 mcg in NaCl | Rate/Dos | 09/04/19 | 1 | 23.83 | | | 0.9 % IV infusion 0.3-1 | e Change | 14 1:22 | mcg/kg/h | mL/hr | | | mcg/kg/hr | | AM PDT | r | | | | 95.3 kg (rounded to 7.15-23.83 | | | | | | | mL/hr), intravenous, CONTINUOUS, | | | | | | | Starting [facility] 09/03/13 at 0130, | | | | | | | Until Sat09/03/13 at 0219 | | | | | | + + + + +--------+---+ +---+---+ | | | +---+---+ + + + + +--------+---+ | dexmedetomidine 400 mcg in NaCl | Rate/Dos | 09/04/19 | 1.5 | 35.74 | | | 0.9 % IV infusion 0.3-1.5 | e Change | 14 2:15 | mcg/kg/h | mL/hr | | | mcg/kg/hr | | AM PDT | r | | | | 95.3 kg (rounded to 7.15-35.74 | | | | | | | mL/hr), intravenous, CONTINUOUS, | | | | | | | Starting [facility] 09/03/13 at 0230, | | | | | | | Until [facility] 09/03/13 at 0245 | | | | | | + + + + +--------+---+ +---+---+ | | | +---+---+ + +---------+ + +--------+---+ | dexmedetomidine 400 mcg in NaCl | New Bag | 09/04/19 | 1.4 | 33.36 | | | 0.9 % IV infusion 0.3-2 | | 14 11:42 | mcg/kg/h | mL/hr | | | mcg/kg/hr | | PM PDT | r | | | | 95.3 kg (rounded to 7.15-47.65 | | | | | | | mL/hr), intravenous, CONTINUOUS, | | | | | | | Starting [facility] 09/03/13 at 0300, | | | | | | | Until Sat09/04/13 at 0215 | | | | | | + +---------+ + +--------+---+ +---------+ + +--------+---+ | New Bag | 09/04/19 | 1.2 | 28.59 | | | | 14 10:07 | mcg/kg/h | mL/hr | | | | PM PDT | r | | | +---------+ + +--------+---+ | New Bag | 09/04/19 | 1 | 23.83 | | | | 14 7:32 | mcg/kg/h | mL/hr | | | | PM PDT | r | | | +---------+ + +--------+---+ +---+---+ | | | +---+---+ + + [...] +--------+---+ +---+---+ | | | +---+---+ + + + + + +---+ | dextrose 5%-NaCl 0.45% IV | Rate/Dos | 09/07/19 | 10 mL/hr | 10 mL/hr | | | infusion 25 mL/hr, intravenous, | e Change | 14 8:00 | | | | | CONTINUOUS, Starting 09/04/13 | | AM PDT | | | | | at 1815, Until 09/06/13 at | | | | | | | 1209 | | | | | | + + + + + +---+ + + + + +---+ | Rate/Dose Verify | 09/07/19 | 25 mL/hr | 25 mL/hr | | | | 14 7:30 | | | | | | AM PDT | | | | + + + + +---+ | Rate/Dose Change | 09/06/19 | 10 mL/hr | 10 mL/hr | | | | 14 10:00 | | | | | | AM PDT | | | | + + + + +---+ +---+---+ | | | +---+---+ + +-------+ +-------+---+---+ | diltiazem (CARDIZEM) tablet 30 | Given | 09/05/19 | 30 mg | | | | mg 30 mg, oral, EVERY 6 HOURS, | | 14 8:53 | | | | | First dose on Sat09/02/13 at | | AM PDT | | | | | 1900, Until Discontinued | | | | | | + +-------+ +-------+---+---+ +-------+ +-------+---+---+ | Given | 09/05/19 | 30 mg | | | | | 14 4:10 | | | | | | AM PDT | | | | +-------+ +-------+---+---+ | Given | 09/04/19 | 30 mg | | | | | 14 9:32 | | | | | | PM PDT | | | | +-------+ +-------+---+---+ +---+---+ | | | +---+---+ + +---------+ + +---------+---+ | esmolol (BREVIBLOC) IV infusion | New Bag | 09/03/19 | 175 | 100.07 | | | 1-300 mcg/kg/min | | 14 12:14 | mcg/kg/m | mL/hr | | | 95.3 kg (rounded to 0.57-171.54 | | AM PDT | in | | | | mL/hr), intravenous, CONTINUOUS, | | | | | | | Starting 09/01/13 at 2145, | | | | | | | Until Sat09/02/13 at 0133 | | | | | | + +---------+ + +---------+---+ + + + +---------+---+ | Rate/Dose Change | 09/02/19 | 175 | 100.07 | | | | 14 10:45 | mcg/kg/m | mL/hr | | | | PM PDT | in | | | + + + +---------+---+ | Rate/Dose Change | 09/02/19 | 125 | 71.48 | | | | 14 10:00 | mcg/kg/m | mL/hr | | | | PM PDT | in | | | + + + +---------+---+ +---+---+ | | | +---+---+ + +---------+ + +---------+---+ | esmolol (BREVIBLOC) IV infusion | New Bag | 09/03/19 | 300 | 171.54 | | | 1-300 mcg/kg/min | | 14 7:45 | mcg/kg/m | mL/hr | | | 95.3 kg (rounded to 0.57-171.54 | | AM PDT | in | | | | mL/hr), intravenous, CONTINUOUS, | | | | | | | Starting Sat09/02/13 at 0145, | | | | | | | Until Sat09/02/13 at 1033 | | | | | | + +---------+ + +---------+---+ + + + +---------+---+ | Rate/Dose Verify | 09/03/19 | 300 | 171.54 | | | | 14 7:27 | mcg/kg/m | mL/hr | | | | AM PDT | in | | | + + + +---------+---+ | New Bag | 09/03/19 | 300 | 171.54 | | | | 14 6:14 | mcg/kg/m | mL/hr | | | | AM PDT | in | | | + + + +---------+---+ +---+---+ | | | +---+---+ + + [...] | | | | | | Starting 09/02/13 at 1115, | | | | | [...] | | +---+---+ + +-------+ +-------+---+---+ | famotidine (PEPCID) tablet 20 | Given | 09/03/19 | 20 mg | | | | mg 20 mg, oral, EVERY 12 HOURS, | | 14 7:58 | | | | | First dose on Sat09/02/13 at | | AM PDT | | | | | 0900, Until Discontinued | | | | | | + +-------+ +-------+---+---+ +---+---+ | | | +---+---+ + +---------+ +-------+-------+---+ | famotidine in NS (PEPCID) IV 20 | New Bag | 09/06/19 | 20 mg | 200 | | | mg 20 mg, intravenous, EVERY 12 | | 14 7:46 | | mL/hr | | | HOURS, First dose on Sat09/04/13 | | AM PDT | | | | | at 2100, Until Discontinued | | | | | | + +---------+ +-------+-------+---+ +---------+ +-------+-------+---+ | New Bag | 09/05/19 | 20 mg | 200 | | | | 14 8:57 | | mL/hr | | | | PM PDT | | | | +---------+ +-------+-------+---+ +---+---+ | | | +---+---+ + +-------+ +------+---+---+ | folic acid (FOLVITE) tablet 1 | Given | 09/10/19 | 1 mg | | | | mg 1 mg, oral, DAILY, 3 doses, | | 14 8:46 | | | | | First dose on Sat09/07/13 at | | AM PDT | | | | | 0900, Last dose on Sat09/09/13 at | | | | | | | 0900 | | | | | | + +-------+ +------+---+---+ +-------+ +------+---+---+ | Given | 09/09/19 | 1 mg | | | | | 14 8:32 | | | | | | AM PDT | | | | +-------+ +------+---+---+ | Given | 09/08/19 | 1 mg | | | | | 14 8:44 | | | | | | AM PDT | | | | +-------+ +------+---+---+ +---+---+ | | | +---+---+ + +---------+ +-------+---+---+ | furosemide (LASIX) injection 10 | New Bag | 09/03/19 | 10 mg | | | | mg 10 mg, intravenous, ONCE, | | 14 4:54 | | | | | dose, 09/02/13 at 1700 | | PM PDT | | | | + +---------+ +-------+---+---+ +---+---+ | | | +---+---+ + +---------+ +-------+---+---+ | furosemide (LASIX) injection 40 | New Bag | 09/08/19 | 40 mg | | | | mg 40 mg, intravenous, ONCE, 1 | | 14 8:43 | | | | | dose, 09/07/13 at 0815 | | AM PDT | | | | + +---------+ +-------+---+---+ +---+---+ | | | +---+---+ + +-------+ +-------+---+---+ | furosemide (LASIX) tablet 40 mg | Given | 09/06/19 | 40 mg | | | | 40 mg, oral, EVERY 6 HOURS, 2 | | 14 3:46 | | | | | doses, First dose on 09/05/13 | | PM PDT | | | | | at 1245, Last dose on 09/05/13 | | | | | | | at 1700 | | | | | | + +-------+ +-------+---+---+ +-------+ +-------+---+---+ | Given | 09/06/19 | 40 mg | | | | | 14 12:48 | | | | | | PM PDT | | | | +-------+ +-------+---+---+ +---+---+ | | | +---+---+ + +-------+ +-------+---+---+ | furosemide (LASIX) tablet 40 mg | Given | 09/07/19 | 40 mg | | | | 40 mg, oral, TWICE DAILY | | 14 4:06 | | | | | (DIURETIC), First dose on Sun | | PM PDT | | | | | 09/06/13 at 0800, Until | | | | | | | Discontinued | | | | | | + +-------+ +-------+---+---+ +-------+ +-------+---+---+ | Given | 09/07/19 | 40 mg | | | | | 14 8:15 | | | | | | AM PDT | | | | +-------+ +-------+---+---+ +---+---+ | | | +---+---+ + +-------+ +-------+---+---+ | furosemide (LASIX) tablet 40 mg | Given | 09/10/19 | 40 mg | | | | 40 mg, oral, TWICE DAILY | | 14 8:46 | | | | | (DIURETIC), First dose (after | | AM PDT | | | | | last modification) on Sat09/07/13 | | | | | | | at 1500, Until Discontinued | | | | | | + +-------+ +-------+---+---+ +-------+ +-------+---+---+ | Given | 09/09/19 | 40 mg | | | | | 14 4:08 | | | | | | PM PDT | | | | +-------+ +-------+---+---+ | Given | 09/09/19 | 40 mg | | | | | 14 8:32 | | | | | | AM PDT | | | | +-------+ +-------+---+---+ +---+---+ | | | +---+---+ + +---------+ +------+---+---+ | haloperidol lactate (HALDOL) | New Bag | 09/08/19 | 2 mg | | | | injection 2 mg 2 mg, | | 14 11:15 | | | | | intravenous, EVERY 6 HOURS | | AM PDT | | | | | NEEDED, Starting Sat09/07/13 at | | | | | | | 0523, Until Sat09/07/13 at 1422, | | | | | | | agitation | | | | | | + +---------+ +------+---+---+ +---------+ +------+---+---+ | New Bag | 09/08/19 | 2 mg | | | | | 14 5:42 | | | | | | AM PDT | | | | +---------+ +------+---+---+ +---+---+ | | | +---+---+ + +-------+ +------+---+---+ | haloperidol lactate (HALDOL) | Given | 09/09/19 | 5 mg | | | | injection 5 mg 5 mg, | | 14 4:40 | | | | | intramuscular, EVERY 6 HOURS | | AM PDT | | | | | NEEDED, Starting Sat09/07/13 at | | | | | | | 1421, Until Sat09/08/13 at 0854, | | | | | | | agitation | | | | | | + +-------+ +------+---+---+ +-------+ +------+---+---+ | Given | 09/08/19 | 5 mg | | | | | 14 10:26 | | | | | | PM PDT | | | | +-------+ +------+---+---+ | Given | 09/08/19 | 5 mg | | | | | 14 2:26 | | | | | | PM PDT | | | | +-------+ +------+---+---+ +---+---+ | | | +---+---+ + +-------+ +--------+---+---+ | heparin injection 5,000 Units | Given | 09/09/19 | 5,000 | | | | 5,000 Units, subcutaneous, EVERY | | 14 11:34 | Units | | | | 8 HOURS, First dose on Sat | | PM PDT | | | | | 09/05/13 at 1600, Until | | | | | | | Discontinued | | | | | | + +-------+ +--------+---+---+ +-------+ +--------+---+---+ | Given | 09/09/19 | 5,000 | | | | | 14 4:08 | Units | | | | | PM PDT | | | | +-------+ +--------+---+---+ | Given | 09/09/19 | 5,000 | | | | | 14 8:32 | Units | | | | | AM PDT | | | | +-------+ +--------+---+---+ +---+---+ | | | +---+---+ + +---------+ +-------+---+---+ | hydrALAZINE (APRESOLINE) | New Bag | 09/03/19 | 10 mg | | | | injection 10-20 mg 10-20 mg, | | 14 9:40 | | | | | intravenous, EVERY 2 HOURS | | PM PDT | | | | | NEEDED, Starting Sat09/02/13 at | | | | | | | 1207, Until Sat09/04/13 at 1802, | | | | | | | SBP>110 | | | | | | + +---------+ +-------+---+---+ +---------+ +-------+---+---+ | New Bag | 09/03/19 | 20 mg | | | | | 14 5:34 | | | | | | PM PDT | | | | +---------+ +-------+---+---+ | New Bag | 09/03/19 | 20 mg | | | | | 14 2:40 | | | | | | PM PDT | | | | +---------+ +-------+---+---+ +---+---+ | | | +---+---+ + +---------+ +-------+---+---+ | hydrALAZINE (APRESOLINE) | New Bag | 09/07/19 | 20 mg | | | | injection 10-20 mg 10-20 mg, | | 14 2:39 | | | | | intravenous, EVERY 2 HOURS | | AM PDT | | | | | NEEDED, Starting 09/05/13 at | | | | | | | 0300, Until 09/06/13 at 0720, | | | | | | | SBP > 120 | | | | | | + +---------+ +-------+---+---+ +---------+ +-------+---+---+ | New Bag | 09/06/19 | 20 mg | | | | | 14 7:43 | | | | | | PM PDT | | | | +---------+ +-------+---+---+ | New Bag | 09/06/19 | 10 mg | | | | | 14 6:07 | | | | | | PM PDT | | | | +---------+ +-------+---+---+ +---+---+ | | | +---+---+ + +---------+ +-------+---+---+ | hydrALAZINE (APRESOLINE) | New Bag | 09/09/19 | 10 mg | | | | injection 10-20 mg 10-20 mg, | | 14 4:40 | | | | | intravenous, EVERY 4 HOURS | | AM PDT | | | | | NEEDED, Starting Sat09/06/13 at | | | | | | | 2000, Until Sat09/09/13 at 1943, | | | | | | | SBP > 130 | | | | | | + +---------+ +-------+---+---+ +---+---+ | | | +---+---+ + +---------+ +------+---+---+ | hydrALAZINE (APRESOLINE) | New Bag | 09/06/19 | 5 mg | | | | injection 5-10 mg 5-10 mg, | | 14 12:28 | | | | | intravenous, EVERY 6 HOURS | | AM PDT | | | | | NEEDED, Starting Sat09/04/13 at | | | | | | | 2212, Until 09/05/13 at 0254, | | | | | | | SBP > 120 | | | | | | + +---------+ +------+---+---+ +---------+ +------+---+---+ | New Bag | 09/06/19 | 5 mg | | | | | 14 12:21 | | | | | | AM PDT | | | | +---------+ +------+---+---+ +---+---+ | | | +---+---+ + +-------+ +-------+---+---+ | hydrALAZINE (APRESOLINE) tablet | Given | 09/05/19 | 20 mg | | | | 20 mg 20 mg, oral, THREE TIMES | | 14 8:22 | | | | | DAILY, First dose on Sat09/02/13 | | AM PDT | | | | | at 2315, Until Discontinued | | | | | | + +-------+ +-------+---+---+ +-------+ +-------+---+---+ | Given | 09/04/19 | 20 mg | | | | | 14 9:31 | | | | | | PM PDT | | | | +-------+ +-------+---+---+ | Given | 09/04/19 | 20 mg | | | | | 14 4:05 | | | | | | PM PDT | | | | +-------+ +-------+---+---+ +---+---+ | | | +---+---+ + +---------+ +--------+---+---+ | HYDROmorphone (DILAUDID) | New Bag | 09/05/19 | 0.5 mg | | | | injection 0.2-1 mg 0.2-1 mg, | | 14 11:15 | | | | | intravenous, EVERY 2 HOURS | | PM PDT | | | | | NEEDED, Starting 09/04/13 at | | | | | | | 2231, Until 09/05/13 at 0036, | | | | | | | moderate pain | | | | | | + +---------+ +--------+---+---+ +---------+ +--------+---+---+ | New Bag | 09/05/19 | 0.5 mg | | | | | 14 10:55 | | | | | | PM PDT | | | | +---------+ +--------+---+---+ +---+---+ | | | +---+---+ + +---------+ +--------+---+---+ | HYDROmorphone (DILAUDID) | New Bag | 09/06/19 | 0.3 mg | | | | injection 0.2-1 mg 0.2-1 mg, | | 14 10:43 | | | | | intravenous, EVERY 2 HOURS | | PM PDT | | | | | NEEDED, Starting 09/05/13 at | | | | | | | 1230, Until 09/06/13 at 1053, | | | | | | | moderate pain | | | | | | + +---------+ +--------+---+---+ +---------+ +--------+---+---+ | New Bag | 09/06/19 | 0.5 mg | | | | | 14 9:11 | | | | | | PM PDT | | | | +---------+ +--------+---+---+ | New Bag | 09/06/19 | 0.2 mg | | | | | 14 7:53 | | | | | | PM PDT | | | | +---------+ +--------+---+---+ +---+---+ | | | +---+---+ + +---------+ +------+---+---+ | HYDROmorphone (DILAUDID) | New Bag | 09/06/19 | 1 mg | | | | injection 0.2-2 mg 0.2-2 mg, | | 14 6:25 | | | | | intravenous, EVERY 2 HOURS | | AM PDT | | | | | NEEDED, Starting 09/05/13 at | | | | | | | 0036, Until 09/05/13 at 0651, | | | | | | | moderate pain | | | | | | + +---------+ +------+---+---+ +---------+ +------+---+---+ | New Bag | 09/06/19 | 1 mg | | | | | 14 5:24 | | | | | | AM PDT | | | | +---------+ +------+---+---+ | New Bag | 09/06/19 | 1 mg | | | | | 14 4:24 | | | | | | AM PDT | | | | +---------+ +------+---+---+ +---+---+ | | | +---+---+ + +---------+ +------+---+---+ | HYDROmorphone (DILAUDID) | New Bag | 09/06/19 | 1 mg | | | | injection 0.2-2 mg 0.2-2 mg, | | 14 6:59 | | | | | intravenous, EVERY 1 HOUR | | AM PDT | | | | | NEEDED, Starting 09/05/13 at | | | | | | | 0700, Until 09/05/13 at 1232, | | | | | | | moderate pain | | | | | | + +---------+ +------+---+---+ +---+---+ | | | +---+---+ + +-------+ +------+---+---+ | HYDROmorphone (DILAUDID) tablet | Given | 09/09/19 | 4 mg | | | | 2-6 mg 2-6 mg, oral, EVERY 3 | | 14 4:40 | | | | | HOURS NEEDED, Starting Mon | | AM PDT | | | | | 09/07/13 at 0756, Until Wed | | | | | | | 09/09/13 at 1943, moderate pain | | | | | | + +-------+ +------+---+---+ +-------+ +------+---+---+ | Given | 09/08/19 | 4 mg | | | | | 14 8:59 | | | | | | PM PDT | | | | +-------+ +------+---+---+ +---+---+ | | | +---+---+ + +-------+ +---------+---+---+ | insulin lispro (HUMALOG) | Given | 09/09/19 | 6 Units | | | | injection 6 Units 6 Units, | | 14 1:23 | | | | | subcutaneous, THREE TIMES DAILY | | PM PDT | | | | | BEFORE MEALS, First dose on Sun | | | | | | | 09/06/13 at 1245, Until | | | | | | | Discontinued | | | | | | + +-------+ +---------+---+---+ +-------+ +---------+---+---+ | Given | 09/09/19 | 6 Units | | | | | 14 8:45 | | | | | | AM PDT | | | | +-------+ +---------+---+---+ | Given | 09/07/19 | 6 Units | | | | | 14 5:37 | | | | | | PM PDT | | | | +-------+ +---------+---+---+ +---+---+ | | | +---+---+ + +-------+ + +---+---+ | insulin NPH (HUMULIN N) | Given | 09/09/19 | 10 Units | | | | injection 10 Units 10 Units, | | 14 11:34 | | | | | subcutaneous, BEFORE BREAKFAST | | PM PDT | | | | | AND BEDTIME, First dose (after | | | | | | | last reorder) on 09/06/13 at | | | | | | | 2100, Until Discontinued | | | | | | + +-------+ + +---+---+ +-------+ + +---+---+ | Given | 09/09/19 | 10 Units | | | | | 14 8:45 | | | | | | AM PDT | | | | +-------+ + +---+---+ | Given | 09/08/19 | 10 Units | | | | | 14 9:16 | | | | | | PM PDT | | | | +-------+ + +---+---+ +---+---+ | | | +---+---+ + + + + +-------+---+ | insulin regular in NaCl 0.9% IV | Rate/Dos | 09/07/19 | 2.8 | 2.8 | | | infusion 250 units/250 mL (1 | e Change | 14 10:59 | Units/hr | mL/hr | | | unit/mL) 0.1-50 Units/hr | | AM PDT | | | | | (rounded to 0.1-50 mL/hr), | | | | | | | intravenous, CONTINUOUS, Starting | | | | | | | 09/04/13 at 1900, Until Sun | | | | | | | 09/06/13 at 1209 | | | | | | + + + + +-------+---+ + + + +---------+---+ | Rate/Dose Change | 09/07/19 | 5 | 5 mL/hr | | | | 14 10:12 | Units/hr | | | | | AM PDT | | | | + + + +---------+---+ | Rate/Dose Change | 09/07/19 | 1.5 | 1.5 | | | | 14 8:50 | Units/hr | mL/hr | | | | AM PDT | | | | + + + +---------+---+ +---+---+ | | | +---+---+ + +---------+ +-------+---+---+ | labetalol (TRANDATE) IV | New Bag | 09/03/19 | 20 mg | | | | injection 10-20 mg 10-20 mg, | | 14 11:17 | | | | | intravenous, EVERY 1 HOUR | | AM PDT | | | | | NEEDED, Starting Sat09/02/13 at | | | | | | | 0749, Until Sat09/02/13 at 1209, | | | | | | | SBP>110, HR>60 | | | | | | + +---------+ +-------+---+---+ +---------+ +-------+---+---+ | New Bag | 09/03/19 | 10 mg | | | | | 14 8:33 | | | | | | AM PDT | | | | +---------+ +-------+---+---+ +---+---+ | | | +---+---+ + +-------+ +------+---+---+ | LORazepam (ATIVAN) tablet 0.5-3 | Given | 09/08/19 | 1 mg | | | | mg 0.5-3 mg, oral, NEEDED, | | 14 10:53 | | | | | Starting Sat09/07/13 at 0800, | | AM PDT | | | | | Until Sat09/07/13 at 1308, LUIS | | | | | | | protocol | | | | | | + +-------+ +------+---+---+ +-------+ +------+---+---+ | Given | 09/08/19 | 1 mg | | | | | 14 9:00 | | | | | | AM PDT | | | | +-------+ +------+---+---+ +---+---+ | | | +---+---+ + +---------+ +-----+---+---+ | magnesium sulfate IV 2 g 2 g, | New Bag | 09/02/19 | 2 g | | | | intravenous, NEEDED, Starting | | 14 10:56 | | | | | 09/01/13 at 2232, Until Wed | | PM PDT | | | | | 09/02/13 at 1038, Mg <2 and | | | | | | | >1.6 | | | | | | + +---------+ +-----+---+---+ +---+---+ | | | +---+---+ + +---------+ +-----+---+---+ | magnesium sulfate IV 2 g 2 g, | New Bag | 09/05/19 | 2 g | | | | intravenous, NEEDED, Starting | | 14 5:13 | | | | | 09/02/13 at 1038, Until Fri | | AM PDT | | | | | 09/04/13 at 1819, Mg <2 | | | | | | + +---------+ +-----+---+---+ +---------+ +-----+---+---+ | New Bag | 09/04/19 | 2 g | | | | | 14 2:57 | | | | | | AM PDT | | | | +---------+ +-----+---+---+ +---+---+ | | | +---+---+ + +---------+ +-----+---+---+ | magnesium sulfate IV 2 g 2 g, | New Bag | 09/07/19 | 2 g | | | | intravenous, NEEDED, Starting | | 14 5:26 | | | | | 09/04/13 at 1802, Until Sun | | AM PDT | | | | | 09/06/13 at 1202, hypomagnesemia | | | | | | + +---------+ +-----+---+---+ +---+---+ | | | +---+---+ + +---------+ +-------+---+---+ | metoprolol (LOPRESSOR) | New Bag | 09/03/19 | 20 mg | | | | injection 20 mg 20 mg, | | 14 3:32 | | | | | intravenous, ONCE, 1 dose, Wed | | PM PDT | | | | | 09/02/13 at 1530 | | | | | | + +---------+ +-------+---+---+ +---+---+ | | | +---+---+ + +---------+ +------+---+---+ | metoprolol (LOPRESSOR) | New Bag | 09/03/19 | 5 mg | | | | injection 5 mg 5 mg, | | 14 2:40 | | | | | intravenous, EVERY 30 MINUTES | | PM PDT | | | | | NEEDED, Starting Sat09/02/13 at | | | | | | | 1207, Until Sat09/02/13 at 1453, | | | | | | | HR>60, BP>110 | | | | | | + +---------+ +------+---+---+ +---------+ +------+---+---+ | New Bag | 09/03/19 | 5 mg | | | | | 14 1:46 | | | | | | PM PDT | | | | +---------+ +------+---+---+ | New Bag | 09/03/19 | 5 mg | | | | | 14 12:16 | | | | | | PM PDT | | | | +---------+ +------+---+---+ + +---+ | | | + +---+ | metoprolol (LOPRESSOR) | | | injection 1 dose, Starting Wed | | | 09/02/13 at 1214, Until Wed | | | 09/02/13 at 1216 | | + +---+ | | | + +---+ + +-------+ +--------+---+---+ | metoprolol tartrate (LOPRESSOR) | Given | 09/05/19 | 100 mg | | | | tablet 100 mg 100 mg, oral, | | 14 8:53 | | | | | EVERY 6 HOURS, First dose (after | | AM PDT | | | | | last modification) on Sat09/02/13 | | | | | | | at 2200, Until Discontinued | | | | | | + +-------+ +--------+---+---+ +-------+ +--------+---+---+ | Given | 09/05/19 | 100 mg | | | | | 14 4:10 | | | | | | AM PDT | | | | +-------+ +--------+---+---+ | Given | 09/04/19 | 100 mg | | | | | 14 9:32 | | | | | | PM PDT | | | | +-------+ +--------+---+---+ +---+---+ | | | +---+---+ + +-------+ +--------+---+---+ | metoprolol tartrate (LOPRESSOR) | Given | 09/10/19 | 100 mg | | | | tablet 100 mg 100 mg, oral, | | 14 8:46 | | | | | TWICE DAILY, First dose (after | | AM PDT | | | | | last modification) on Sat09/07/13 | | | | | | | at 0900, Until Discontinued | | | | | | + +-------+ +--------+---+---+ +-------+ +--------+---+---+ | Given | 09/09/19 | 100 mg | | | | | 14 8:53 | | | | | | PM PDT | | | | +-------+ +--------+---+---+ | Given | 09/09/19 | 100 mg | | | | | 14 8:32 | | | | | | AM PDT | | | | +-------+ +--------+---+---+ +---+---+ | | | +---+---+ + +-------+ +-------+---+---+ | metoprolol tartrate (LOPRESSOR) | Given | 09/03/19 | 25 mg | | | | tablet 25 mg 25 mg, oral, THREE | | 14 11:05 | | | | | TIMES DAILY, First dose on Sat | | AM PDT | | | | | 09/02/13 at 1045, Until | | | | | | | Discontinued | | | | | | + +-------+ +-------+---+---+ +---+---+ | | | +---+---+ + +-------+ +-------+---+---+ | metoprolol tartrate (LOPRESSOR) | Given | 09/06/19 | 25 mg | | | | tablet 25 mg 25 mg, oral, TWICE | | 14 12:48 | | | | | DAILY, First dose on 09/05/13 | | PM PDT | | | | | at 1245, Until Discontinued | | | | | | + +-------+ +-------+---+---+ +---+---+ | | | +---+---+ + +-------+ +-------+---+---+ | metoprolol tartrate (LOPRESSOR) | Given | 09/07/19 | 50 mg | | | | tablet 50 mg 50 mg, oral, TWICE | | 14 8:15 | | | | | DAILY, First dose (after last | | AM PDT | | | | | modification) on 09/05/13 at | | | | | | | 2100, Until Discontinued | | | | | | + +-------+ +-------+---+---+ +-------+ +-------+---+---+ | Given | 09/06/19 | 50 mg | | | | | 14 10:42 | | | | | | PM PDT | | | | +-------+ +-------+---+---+ +---+---+ | | | +---+---+ + +-------+ +-------+---+---+ | metoprolol tartrate (LOPRESSOR) | Given | 09/03/19 | 75 mg | | | | tablet 75 mg 75 mg, oral, EVERY | | 14 3:31 | | | | | 6 HOURS, First dose (after last | | PM PDT | | | | | modification) on Sat09/02/13 at | | | | | | | 1600, Until Discontinued | | | | | | + +-------+ +-------+---+---+ +---+---+ | | | +---+---+ + +-------+ +-------+---+---+ | metoprolol tartrate (LOPRESSOR) | Given | 09/07/19 | 75 mg | | | | tablet 75 mg 75 mg, oral, TWICE | | 14 8:48 | | | | | DAILY, First dose (after last | | PM PDT | | | | | modification) on Sat09/06/13 at | | | | | | | 2100, Until Discontinued | | | | | | + +-------+ +-------+---+---+ +---+---+ | | | +---+---+ + +---------+ +------+---+---+ | morphine injection 2 mg 2 mg, | New Bag | 09/05/19 | 2 mg | | | | intravenous, EVERY 5 MINUTES | | 14 10:30 | | | | | NEEDED, Starting Sat09/04/13 at | | PM PDT | | | | | 1802, Until Sat09/04/13 at 2231, | | | | | | | moderate pain | | | | | | + +---------+ +------+---+---+ +---------+ +------+---+---+ | New Bag | 09/05/19 | 2 mg | | | | | 14 10:24 | | | | | | PM PDT | | | | +---------+ +------+---+---+ | New Bag | 09/05/19 | 2 mg | | | | | 14 10:18 | | | | | | PM PDT | | | | +---------+ +------+---+---+ +---+---+ | | | +---+---+ + +-------+ +---------+---+---+ | multivitamin 1 capsule 1 | Given | 09/10/19 | 1 | | | | capsule, oral, DAILY, 3 doses, | | 14 8:46 | capsule | | | | First dose on Sat09/07/13 at | | AM PDT | | | | | 0900, Last dose on Sat09/09/13 at | | | | | | | 0900 | | | | | | + +-------+ +---------+---+---+ +-------+ +---------+---+---+ | Given | 09/09/19 | 1 | | | | | 14 8:32 | capsule | | | | | AM PDT | | | | +-------+ +---------+---+---+ | Given | 09/08/19 | 1 | | | | | 14 8:43 | capsule | | | | | AM PDT | | | | +-------+ +---------+---+---+ +---+---+ | | | +---+---+ + +-------+ +---+---+---+ | mupirocin (BACTROBAN) 2 % | Given | 09/05/19 | | | | | ointment nasal, TWICE DAILY, 12 | | 14 8:22 | | | | | doses, First dose on Sat09/03/13 | | AM PDT | | | | | at 2100, Last dose on Sat09/09/13 | | | | | | | at 0900 | | | | | | + +-------+ +---+---+---+ +-------+ +---+---+---+ | Given | 09/04/19 | | | | | | 14 8:11 | | | | | | PM PDT | | | | +-------+ +---+---+---+ +---+---+ | | | +---+---+ + +-------+ +---+---+---+ | mupirocin (BACTROBAN) 2 % | Given | 09/07/19 | | | | | ointment nasal, TWICE DAILY, 6 | | 14 8:15 | | | | | doses, First dose on Sat09/04/13 | | AM PDT | | | | | at 2100, Last dose on Sat09/07/13 | | | | | | | at 0900 | | | | | | + +-------+ +---+---+---+ +-------+ +---+---+---+ | Given | 09/06/19 | | | | | | 14 10:46 | | | | | | PM PDT | | | | +-------+ +---+---+---+ | Given | 09/06/19 | | | | | | 14 8:44 | | | | | | AM PDT | | | | +-------+ +---+---+---+ +---+---+ | | | +---+---+ + + + +---------+ +---+ | niCARdipine in NS IV infusion | Rate/Dos | 09/06/19 | 4 mg/hr | 20 mL/hr | | | 40mg/200mL piggy back 0.5-15 | e Change | 14 3:00 | | | | | mg/hr (rounded to 2.5-75 mL/hr), | | PM PDT | | | | | intravenous, CONTINUOUS, Starting | | | | | | | 09/05/13 at 0445, Until Sun | | | | | | | 4/27/14 at 0813 | | | | | | + + + +---------+ +---+ + + +---------+ +---+ | Rate/Dose Change | 09/06/19 | 6 mg/hr | 30 mL/hr | | | | 14 1:25 | | | | | | PM PDT | | | | + + +---------+ +---+ | Rate/Dose Change | 09/06/19 | 8 mg/hr | 40 mL/hr | | | | 14 12:55 | | | | | | PM PDT | | | | + + +---------+ +---+ +---+---+ | | | +---+---+ + +-------+ +-------+---+---+ | omeprazole (PRILOSEC) capsule | Given | 09/10/19 | 40 mg | | | | 40 mg 40 mg, oral, DAILY, First | | 14 8:46 | | | | | dose on 09/05/13 at 1530, | | AM PDT | | | | | Until Discontinued | | | | | | + +-------+ +-------+---+---+ +-------+ +-------+---+---+ | Given | 09/09/19 | 40 mg | | | | | 14 8:32 | | | | | | AM PDT | | | | +-------+ +-------+---+---+ | Given | 09/08/19 | 40 mg | | | | | 14 8:43 | | | | | | AM PDT | | | | +-------+ +-------+---+---+ +---+---+ | | | +---+---+ + +---------+ +------+---+---+ | ondansetron (ZOFRAN) injection | New Bag | 09/06/19 | 4 mg | | | | 4 mg 4 mg, intravenous, EVERY 12 | | 14 11:31 | | | | | HOURS NEEDED, Starting Fri | | PM PDT | | | | | 09/04/13 at 1802, Until Wed | | | | | | | 09/09/13 at 1943, nausea/vomiting | | | | | | + +---------+ +------+---+---+ +---------+ +------+---+---+ | New Bag | 09/06/19 | 4 mg | | | | | 14 5:20 | | | | | | AM PDT | | | | +---------+ +------+---+---+ +---+---+ | | | +---+---+ + +-------+ +-------+---+---+ | oxyCODONE (immediate release) | Given | 09/04/19 | 10 mg | | | | (ROXICODONE) tablet 5-10 mg 5-10 | | 14 11:48 | | | | | mg, oral, EVERY 3 HOURS | | PM PDT | | | | | NEEDED, Starting Sat09/01/13 at | | | | | | | 2103, Until Sat09/04/13 at 1802, | | | | | | | severe pain | | | | | | + +-------+ +-------+---+---+ +-------+ +-------+---+---+ | Given | 09/04/19 | 10 mg | | | | | 14 6:16 | | | | | | PM PDT | | | | +-------+ +-------+---+---+ | Given | 09/04/19 | 5 mg | | | | | 14 2:24 | | | | | | PM PDT | | | | +-------+ +-------+---+---+ +---+---+ | | | +---+---+ + +-------+ +-------+---+---+ | oxyCODONE (immediate release) | Given | 09/07/19 | 10 mg | | | | (ROXICODONE) tablet 5-15 mg 5-15 | | 14 8:29 | | | | | mg, oral, EVERY 4 HOURS | | PM PDT | | | | | NEEDED, Starting 09/05/13 at | | | | | | | 0139, Until 09/07/13 at 0756, | | | | | | | moderate pain | | | | | | + +-------+ +-------+---+---+ +-------+ +-------+---+---+ | Given | 09/07/19 | 15 mg | | | | | 14 9:45 | | | | | | AM PDT | | | | +-------+ +-------+---+---+ | Given | 09/07/19 | 15 mg | | | | | 14 2:39 | | | | | | AM PDT | | | | +-------+ +-------+---+---+ +---+---+ | | | +---+---+ + +---------+ +--------+---+---+ | perflutren lipid microspheres | New Bag | 09/03/19 | 1.5 mL | | | | (DEFINITY) injection 1.5 mL 1.5 | | 14 9:15 | | | | | mL, intravenous, PROCEDURE ONCE, | | AM PDT | | | | | 1 dose, 09/02/13 at 1100 | | | | | | + +---------+ +--------+---+---+ +---+---+ | | | +---+---+ + +-------+ +--------+---+---+ | potassium chloride (KAOCHLOR) | Given | 09/05/19 | 20 mEq | | | | liquid 10-40 mEq 10-40 mEq, | | 14 5:13 | | | | | oral, NEEDED, Starting Tue | | AM PDT | | | | | 09/01/13 at 2104, Until Fri | | | | | | | 09/04/13 at 1802, hypokalemia per | | | | | | | protocol | | | | | | + +-------+ +--------+---+---+ +-------+ +--------+---+---+ | Given | 09/04/19 | 40 mEq | | | | | 14 2:50 | | | | | | AM PDT | | | | +-------+ +--------+---+---+ | Given | 09/03/19 | 20 mEq | | | | | 14 4:27 | | | | | | AM PDT | | | | +-------+ +--------+---+---+ +---+---+ | | | +---+---+ + +-------+ +--------+---+---+ | potassium chloride (KLOR-CON) | Given | 09/09/19 | 20 mEq | | | | packet 20 mEq 20 mEq, oral, | | 14 8:53 | | | | | TWICE DAILY, First dose on Sun | | PM PDT | | | | | 09/06/13 at 1245, Until | | | | | | | Discontinued | | | | | | + +-------+ +--------+---+---+ +-------+ +--------+---+---+ | Given | 09/09/19 | 20 mEq | | | | | 14 8:33 | | | | | | AM PDT | | | | +-------+ +--------+---+---+ | Given | 09/08/19 | 20 mEq | | | | | 14 9:00 | | | | | | PM PDT | | | | +-------+ +--------+---+---+ +---+---+ | | | +---+---+ + +---------+ +--------+---+---+ | potassium chloride IV | New Bag | 09/08/19 | 20 mEq | | | | (peripheral line) 20 mEq 20 mEq, | | 14 9:52 | | | | | intravenous, ONCE, 1 dose, Mon | | PM PDT | | | | | 09/07/13 at 2000 | | | | | | + +---------+ +--------+---+---+ +---+---+ | | | +---+---+ + +---------+ +--------+---+---+ | potassium chloride IV | New Bag | 09/09/19 | 20 mEq | | | | (peripheral line) 20 mEq 20 mEq, | | 14 5:33 | | | | | intravenous, ONCE, 1 dose, Tue | | PM PDT | | | | | 09/08/13 at 1800 | | | | | | + +---------+ +--------+---+---+ +---+---+ | | | +---+---+ + +---------+ +--------+---+---+ | potassium chloride IV | New Bag | 09/08/19 | 40 mEq | | | | (peripheral line) 40 mEq 40 mEq, | | 14 11:52 | | | | | intravenous, ONCE, 1 dose, Mon | | PM PDT | | | | | 09/07/13 at 1445 | | | | | | + +---------+ +--------+---+---+ +---+---+ | | | +---+---+ + +---------+ +--------+---+---+ | potassium chloride IV | New Bag | 09/09/19 | 40 mEq | | | | (peripheral line) 40 mEq 40 mEq, | | 14 10:20 | | | | | intravenous, ONCE, 1 dose, Tue | | AM PDT | | | | | 09/08/13 at 1100 | | | | | | + +---------+ +--------+---+---+ +---+---+ | | | +---+---+ + +---------+ +--------+---+---+ | potassium chloride IV 20 mEq | New Bag | 09/05/19 | 20 mEq | | | | 20 mEq, intravenous, TWO TIMES | | 14 7:27 | | | | | POST CARDIAC SURGERY PRN, | | PM PDT | | | | | Starting 09/04/13 at 1734, | | | | | | | Until 09/05/13 at 0533 | | | | | | + +---------+ +--------+---+---+ +---------+ +--------+---+---+ | New Bag | 09/05/19 | 20 mEq | | | | | 14 6:50 | | | | | | PM PDT | | | | +---------+ +--------+---+---+ +---+---+ | | | +---+---+ + +---------+ +--------+---+---+ | potassium chloride IV 20 mEq | New Bag | 09/07/19 | 20 mEq | | | | 20 mEq, intravenous, NEEDED, | | 14 8:15 | | | | | Starting 09/04/13 at 1821, | | AM PDT | | | | | Until 09/06/13 at 1053, | | | | | | | hypokalemia | | | | | | + +---------+ +--------+---+---+ +---------+ +--------+---+---+ | New Bag | 09/07/19 | 20 mEq | | | | | 14 6:36 | | | | | | AM PDT | | | | +---------+ +--------+---+---+ | New Bag | 09/07/19 | 20 mEq | | | | | 14 4:07 | | | | | | AM PDT | | | | +---------+ +--------+---+---+ +---+---+ | | | +---+---+ + +-------+ +--------+---+---+ | potassium chloride SR (K-DUR) | Given | 09/07/19 | 20 mEq | | | | tablet 20 mEq 20 mEq, oral, | | 14 10:57 | | | | | ONCE, 1 dose, [place] 09/06/13 at 2215 | | PM PDT | | | | + +-------+ +--------+---+---+ +---+---+ | | | +---+---+ + +-------+ +--------+---+---+ | potassium chloride SR (K-DUR) | Given | 09/08/19 | 20 mEq | | | | tablet 20 mEq 20 mEq, oral, | | 14 12:00 | | | | | ONCE, 1 dose, [facility] 09/07/13 at 0000 | | AM PDT | | | | + +-------+ +--------+---+---+ +---+---+ | | | +---+---+ + +-------+ +--------+---+---+ | potassium chloride SR (K-DUR) | Given | 09/10/19 | 40 mEq | | | | tablet 40 mEq 40 mEq, oral, | | 14 12:16 | | | | | TWICE DAILY, First dose on Sat | | PM PDT | | | | | 09/09/13 at 0900, Until | | | | | | | Discontinued | | | | | | + +-------+ +--------+---+---+ +-------+ +--------+---+---+ | Given | 09/10/19 | 40 mEq | | | | | 14 8:46 | | | | | | AM PDT | | | | +-------+ +--------+---+---+ +---+---+ | | | +---+---+ + + + + +--------+---+ | propofol (DIPRIVAN) injection | Rate/Dos | 09/05/19 | 65 | 37.17 | | | 1-30 mcg/kg/min | e Verify | 14 7:25 | mcg/kg/m | mL/hr | | | 95.3 kg Dosing weight (rounded | | PM PDT | in | | | | to 0.57-17.15 mL/hr), | | | | | | | intravenous, CONTINUOUS, Starting | | | | | | | 09/04/13 at 1815, Until Fri | | | | | | | 09/04/13 at 2030 | | | | | | + + + + +--------+---+ + + + +--------+---+ | New Bag | 09/05/19 | 65 | 37.17 | | | | 14 7:00 | mcg/kg/m | mL/hr | | | | PM PDT | in | | | + + + +--------+---+ | Rate/Dose Change | 09/05/19 | 75 | 42.89 | | | | 14 6:15 | mcg/kg/m | mL/hr | | | | PM PDT | in | | | + + + +--------+---+ +---+---+ | | | +---+---+ + + + + +-------+---+ | propofol (DIPRIVAN) injection | Rate/Dos | 09/05/19 | 15 | 8.58 | | | 1-65 mcg/kg/min | e Change | 14 8:48 | mcg/kg/m | mL/hr | | | 95.3 kg Dosing weight (rounded | | PM PDT | in | | | | to 0.57-37.17 mL/hr), | | | | | | | intravenous, CONTINUOUS, Starting | | | | | | | 09/04/13 at 2045, Until Sat | | | | | | | 09/05/13 at 0918 | | | | | | + + + + +-------+---+ + + + +--------+---+ | Rate/Dose Change | 09/05/19 | 40 | 22.87 | | | | 14 8:41 | mcg/kg/m | mL/hr | | | | PM PDT | in | | | + + + +--------+---+ | Rate/Dose Change | 09/05/19 | 55 | 31.45 | | | | 14 8:30 | mcg/kg/m | mL/hr | | | | PM PDT | in | | | + + + +--------+---+ +---+---+ | | | +---+---+ + +---------+ +-------+---+---+ | protamine injection 50 mg 50 | New Bag | 09/05/19 | 50 mg | | | | mg, intravenous, ONE TIME POST | | 14 7:55 | | | | | CARDIAC SURGERY PRN, Starting Fri | | PM PDT | | | | | 09/04/13 at 1734, Until Sat | | | | | | | 09/05/13 at 0533 | | | | | | + +---------+ +-------+---+---+ +---+---+ | | | +---+---+ + +-------+ +-------+---+---+ | QUEtiapine (SEROQUEL) tablet 25 | Given | 09/04/19 | 25 mg | | | | mg 25 mg, oral, AT BEDTIME | | 14 9:31 | | | | | NEEDED, Starting [place] 09/03/13 at | | PM PDT | | | | | 0324, Until Sat09/04/13 at 1802, | | | | | | | agitation | | | | | | + +-------+ +-------+---+---+ +-------+ +-------+---+---+ | Given | 09/04/19 | 25 mg | | | | | 14 3:35 | | | | | | AM PDT | | | | +-------+ +-------+---+---+ +---+---+ | | | +---+---+ + +-------+ +-------+---+---+ | QUEtiapine (SEROQUEL) tablet 25 | Given | 09/04/19 | 25 mg | | | | mg 25 mg, oral, ONCE, 1 dose, | | 14 11:06 | | | | | [place] 09/03/13 at 2315 | | PM PDT | | | | + +-------+ +-------+---+---+ +---+---+ | | | +---+---+ + +-------+ +-------+---+---+ | QUEtiapine (SEROQUEL) tablet 25 | Given | 09/09/19 | 25 mg | | | | mg 25 mg, oral, THREE TIMES | | 14 8:32 | | | | | DAILY, First dose on 09/07/13 | | AM PDT | | | | | at 1630, Until Discontinued | | | | | | + +-------+ +-------+---+---+ +-------+ +-------+---+---+ | Given | 09/08/19 | 25 mg | | | | | 14 8:59 | | | | | | PM PDT | | | | +-------+ +-------+---+---+ | Given | 09/08/19 | 25 mg | | | | | 14 6:03 | | | | | | PM PDT | | | | +-------+ +-------+---+---+ +---+---+ | | | +---+---+ + +-------+ +-------+---+---+ | QUEtiapine (SEROQUEL) tablet 25 | Given | 09/09/19 | 25 mg | | | | mg 25 mg, oral, AT BEDTIME, | | 14 8:53 | | | | | First dose (after last | | PM PDT | | | | | modification) on Sat09/08/13 at | | | | | | | 2200, Until Discontinued | | | | | | + +-------+ +-------+---+---+ +---+---+ | | | +---+---+ + +-------+ + +---+---+ | senna-docusate (SENOKOT S) | Given | 09/05/19 | 1 tablet | | | | 8.6-50 mg 1 tablet 1 tablet, | | 14 8:22 | | | | | oral, TWICE DAILY, First dose on | | AM PDT | | | | | 09/01/13 at 2300, Until | | | | | | | Discontinued | | | | | | + +-------+ + +---+---+ +-------+ + +---+---+ | Given | 09/04/19 | 1 tablet | | | | | 14 8:11 | | | | | | PM PDT | | | | +-------+ + +---+---+ | Given | 09/03/19 | 1 tablet | | | | | 14 7:58 | | | | | | AM PDT | | | | +-------+ + +---+---+ +---+---+ | | | +---+---+ + +-------+ + +---+---+ | senna-docusate (SENOKOT S) | Given | 09/09/19 | 1 tablet | | | | 8.6-50 mg 1 tablet 1 tablet, | | 14 8:32 | | | | | oral, TWICE DAILY, First dose on | | AM PDT | | | | | 09/04/13 at 2100, Until | | | | | | | Discontinued | | | | | | + +-------+ + +---+---+ +-------+ + +---+---+ | Given | 09/08/19 | 1 tablet | | | | | 14 8:59 | | | | | | PM PDT | | | | +-------+ + +---+---+ | Given | 09/08/19 | 1 tablet | | | | | 14 8:44 | | | | | | AM PDT | | | | +-------+ + +---+---+ +---+---+ | | | +---+---+ + +-------+ +-------+---+---+ | simvastatin (ZOCOR) tablet 20 | Given | 09/09/19 | 20 mg | | | | mg 20 mg, oral, EVERY EVENING, | | 14 8:53 | | | | | First dose on 09/06/13 at | | PM PDT | | | | | 2100, Until Discontinued | | | | | | + +-------+ +-------+---+---+ +-------+ +-------+---+---+ | Given | 09/08/19 | 20 mg | | | | | 14 9:00 | | | | | | PM PDT | | | | +-------+ +-------+---+---+ | Given | 09/07/19 | 20 mg | | | | | 14 8:48 | | | | | | PM PDT | | | | +-------+ +-------+---+---+ +---+---+ | | | +---+---+ + +-------+ + +---+---+ | sodium chloride (OCEAN) 0.65 % | Given | 09/05/19 | 2 sprays | | | | nasal spray 2 spray 2 spray, | | 14 4:10 | | | | | both nostrils, NEEDED, | | AM PDT | | | | | Starting Sat09/04/13 at 0344, | | | | | | | Until Sat09/04/13 at 1802, dry | | | | | | | nose | | | | | | + +-------+ + +---+---+ +---+---+ | | | +---+---+ + +-------+ +--------+---+---+ | tamsulosin (FLOMAX) capsule 0.4 | Given | 09/04/19 | 0.4 mg | | | | mg 0.4 mg, oral, AT BEDTIME, | | 14 9:32 | | | | | First dose on Sat09/02/13 at | | PM PDT | | | | | 2345, Until Discontinued | | | | | | + +-------+ +--------+---+---+ +-------+ +--------+---+---+ | Given | 09/03/19 | 0.4 mg | | | | | 14 10:32 | | | | | | PM PDT | | | | +-------+ +--------+---+---+ +---+---+ | | | +---+---+ + +-------+ +--------+---+---+ | thiamine tablet 100 mg 100 mg, | Given | 09/10/19 | 100 mg | | | | oral, DAILY, 3 doses, First dose | | 14 8:46 | | | | | on Sat09/07/13 at 0900, Last | | AM PDT | | | | | dose on 09/09/13 at 0900 | | | | | | + +-------+ +--------+---+---+ +-------+ +--------+---+---+ | Given | 09/09/19 | 100 mg | | | | | 14 8:32 | | | | | | AM PDT | | | | +-------+ +--------+---+---+ | Given | 09/08/19 | 100 mg | | | | | 14 8:43 | | | | | | AM PDT | | | | +-------+ +--------+---+---+ +---+---+ | | | +---+---+ + +-------+ +------+---+---+ | zolpidem (AMBIEN) tablet 5 mg | Given | 09/08/19 | 5 mg | | | | 5 mg, oral, ONCE, 1 dose, Mon | | 14 12:19 | | | | | 09/07/13 at 0045 | | AM PDT | | | | + +-------+ +------+---+---+ +---+---+ | | | +---+---+ documented in this encounter
--- OUTSIDE RECORDS SUMMARY | ~2019-11-14 | XMS | Encounter Summary ---
Demographics + + + | Address | [address] | | | [place] [address] | + + + | Home Phone | | + + + | Preferred Language | Unknown | + + + | Marital Status | | + + + | Tenriism Affiliation | Unknown | + + + | Race | Unknown | + + + | Ethnic Group | Unknown | + + + Author + + + | Author | [facility] | | | and [place] | + + + | Organization | [facility] | | | and [place] | + + + | Address | Unknown | + + + | Phone | Unavailable | + + + Support + + + + + | Name | Relationship | Address | Phone | + + + + + | Floranjit Escobedo | ECON | [address] | | | | | [place] | | | | | [address] | | + + + + + Care Team Providers + +------+ + | Care Snuff Blender Name | Role | Phone | + +------+ + PCP | Unavailable | + +------+ + Encounter Details +--------+ + + + + | Date | Type | Department | Care Team | Description | +--------+ + + + + | 12/22/ | Hospital | [facility] | Conversion | Ulnar Nerve Lesion | | 2007 | Encounter | [facility] | Transaction, | | | | | CLINICAL DECISION | Provider Unknown | | | | | [address] | | | | | | [place], [place] | (Fax) | | | | | [address] | | | | | | [phone] | | | +--------+ + + + [...] [place] | | | | | | [address] | | | | | | | | +--------+---------+ + + + documented as of this encounter Visit Diagnoses + + | Diagnosis | + + | 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
--- OUTSIDE RECORDS SUMMARY | ~2019-11-14 | XMS | Encounter Summary ---
Demographics + + + | Address | [address] | | | [place] [address] | + + + | Home Phone [...] + + + | Author | [facility] | + + + | Organization | [facility] | + + + | Address | Unknown | + + + | Phone | Unavailable | + + + Support + + + + + | Name | Relationship | Address | Phone | + + + + + | Kim Sigo | ECON | [address] | | | | | [place] | | | | | [address] | | + + + + + | Key Escobedo | ECON | Unknown | | + + + + + | Cathleen Escobedo | ECON | Unknown | | + + + + + Care Team Providers + +------+ + | Care Gastroenterology Nurse Practitioner Name | Role | Phone | + [...] | | | [address] | [facility] [place] | [address] Lung [facility] | | | | Physician's | [phone] | Board) | | | | [place], 2nd floor | [phone] | | | | | [place], [place] | | | | | | [address] | | | | | | [phone] | | | +--------+ + + + [...] Rd | | | | | | [place], [place] | | | | | | [address] | | | | | | [phone] | | | | | | | | +--------+ + + + + documented as of this encounter Visit Diagnoses Not on filedocumented in this encounter"
--- OUTSIDE RECORDS SUMMARY | ~2019-11-14 | XMS | Encounter Summary ---
Demographics + + + | Address | [address] | | | [place] [address] | + + + | Home Phone | | + + + | Preferred Language | Unknown | + + + | Marital Status | | + + + | Faith Affiliation | NRP | + + + [...] [place] | | | | | [address] | | + + + + + | Key Sigo | ECON | Unknown | | + + + + + | Cathleen Sigo | ECON | Unknown | | + + + + + Care Team Providers + +------+ + | Care Endocrinology Teacher Name | Role | Phone | [...] [address] | | | | | | [place] | | | | | | [address] | | | | | | [phone] | | | | | | | | +--------+ + + + + documented as of this encounter Visit Diagnoses Not on filedocumented in this encounter"
--- OUTSIDE RECORDS SUMMARY | ~2019-11-14 | XMS | Encounter Summary ---
Demographics + + + | Address | [address] | | | [place] [address] | + + + | Home Phone | | + + + | Preferred Language | Unknown | + + + | Marital Status | | + + + | Quaker Affiliation | NRP | + + + | Race | or | + + + | Ethnic Group | Not or | + + + Author + + + | Author | [facility] | + + + | Organization | [facility] | + + + | Address | Unknown | + + + | Phone | Unavailable | + + + Support + + + + + | Name | Relationship | Address | Phone | + + + + + | Kim Sigo | ECON | [address] | | | | | [place] | | | | | [address] | | + + + + + | Key Escobedo | ECON | Unknown | | + + + + + | Cathleen Escobedo | ECON | Unknown | | + + + + + Care Team Providers + +------+ + | Care Armored Vehicle Officer Name | Role | Phone | + +------+ + | Anupama Juárez | PCP | | + +------+ + Encounter Details +--------+---------+ + + + | Date | Type | Department | Care Team | Description | +--------+---------+ + + + | 10/21/ | Office | Preoperative | Ai Buenrostro, | Preop examination | | 2020 | Visit | Medicine Clinic at | [facility] [address] [facility] | (Primary Dx); | | | | [facility] | [facility] [address] | 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 An [place] Project Accountant will include a symptom chec k when [...] i nformation in restricted countries visit: https://www.cdc.gov/coronavirus/2019-ncov/traveler s/jmx-pxy-iubaid-notices.html o Diagnosis of COVID-19 o Contact with known or suspected or suspected COVID-19 cases within the last 14 days o Cruise ship travel within the last 30 days. For updated information on cruise ships visit : https://wwwnc.cdc.gov/travel/notices/warning/gbbcyyldmuw-wwvygy-jdio If you have any questions about COVID-19 symptoms and care, please call the [facility] COV ID-19 Hotline at [phone] between 8 a.m. and 8 p.m. 7 days a week. As part of [facility]'s efforts to keep patients and [...] the Main hospital operating room (SOR) and [facility] pre-proc edure area unless needed for their [...] directly. More information can be found here: https://[email or web address]/health/coronavirus-resources. Pre-surgery "homework" * If you have [...] exist, including nicotine patches and gum. The [place] Quit Line can also be reached at [...] it is after office hours, call the [facility] corrugator operator helper at [phone] and ask them to page him or h er. Service animals Not allowed in the following areas: ? 6A ? 11B PCU ? [facility] Pre/Post-op ? [facility] documented in this encounter Progress Notes Ai [...] SEGMENTECTOMY, BRONCHOSCOPY on 10/28/2019 Proposed Procedure Location: [facility] HISTORY OF PRESENT ILLNESS: Richard Escobedo is [...] for DIANELYS based on today's assessment Prior otbin-operative or tobin-anesthesia complications: none Functional Capacity: Moderate [...] aneurysm s/p repair in 2013. F/u with curatorial specialist Dr. 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 Able to walk up 2 flights of [...] based on this patients comorbid conditions and jhx-ko-ykvtnez care coordination needs Medication management recommendations: The [...] patient's care. EDD Benz [facility]OPER[facility] Building [address] [place] [address] (fax) [facility] umented in this encounter Plan [...] Rd | | | | | | [place], [place] | | | | | | [address] | | | | | | [phone] | | | | | | | [...]
--- OUTSIDE RECORDS SUMMARY | ~2019-11-14 | XMS | Encounter Summary ---
Demographics + + + | Address | [address] | | | [place] [address] | + + + | Home Phone [...] + + + | Author | [facility] | + + + | Organization | [facility] | + + + | Address | Unknown | + + + | Phone | Unavailable | + + + Support + + + + + | Name | Relationship | Address | Phone | + + + + + | Kim Sigo | ECON | [address] | | | | | [place] | | | | | [address] | | + + + + + | Key Escobedo | ECON | Unknown | | + + + + + | Cathleen Escobedo | ECON | Unknown | | + + + + + Care Team Providers + +------+ + | Care Director Dental Services Name | Role | Phone | + [...] Perez | | | | | [facility] | [address] | | | | | Hospital Admitting | [place], [place] | | | | | Desk Located on the | [address] | | | | | 9th floor | [phone] | | | | | [place], [place] | | | | | | [address] | KoenigToni MD | | | | | | [address] | | | | | | [facility], | | | | | | [place] [address] | | | | | | [phone] | | | | | | | [...] | No; 17; Right; Forearm; Positive | Treas Crespo RN | Samantha Morales, | | [...] Aiden Coy | | Jasmin | | FLIGHT ENGINEER INSTRUCTOR | | | al | | | [...] RN | Elías Tejeda RN | | [employer] | | | | | al | [...] | 2019 | cyn | | [address] [facility] | | | | | | [address] | | | | | | [place], [place] | | | | | | [address] | | | | | | [phone] | | | | | | | [...]
--- OUTSIDE RECORDS SUMMARY | ~2019-11-14 | XMS | Encounter Summary ---
Demographics + + + | Address | [address] | | | [place] [address] | + + + | Home Phone | | + + + | Preferred Language | Unknown | + + + | Marital Status | | + + + | Worship Affiliation | Unknown | + + + [...] [place] | | | | | [address] | | + + + + + Care Team Providers + +------+ + | Care Imaging Technologist Name | Role | Phone | + +------+ + | Stanley Kinney PA-C | PCP | | + +------+ + Reason for Visit + +--------+ + | Reason | Onset | Comments | | | Date | | + +--------+ + | Appointment | 11/14/ | | | | 2015 | | + +--------+ + Encounter Details +--------+ + + + + | Date | Type | Department | Care Team | Description | +--------+ + + + + | 11/14/ | Telephone | [facility] | Stanley Kinney, | Appointment | | 2015 | | CARDIOLOGY [address] | [place] [address] | | | | | [address], | [address] | | | | | [place] [address] | [place] [address] | | | | | [phone] | [phone] | | | | | | | [...] this encounter Miscellaneous Notes Telephone Encounter - Shira Germain - 11/15/2015 2:58 PM Eloisa at [facility] called and requested that patient's cardiology appointment with Dr. Abarca on 11-28-15 be cancelled . She states that patient has decided to see a local intermodal truck driver at [facility] instead. Appointment was cancelled and referral was closed.Electronically signed by Shira weiss 11/15/2015 3:00 PM PDTdocumented in this encounter Plan of Treatment +--------+---------+ + + + | Date | Type | Specialty | Care Team | Description | +--------+---------+ + + + | 01/26/ | Office | Cardiology | Iris Malone, | | | 2019 | Visit | | MD Erasmo ESCOTO | | | | | | [facility] | | | | | | [address] | | | | | | | | +--------+---------+ + + + documented as of this encounter Visit Diagnoses Not on filedocumented in this encounter"
--- OUTSIDE RECORDS SUMMARY | ~2019-11-14 | XMS | Encounter Summary ---
Demographics + + + | Address | [address] | | | [place] [address] | + + + | Home Phone | | + + + | Preferred Language | Unknown | + + + | Marital Status | | + + + | Jain Affiliation | NRP | + + + | Race | or | + + + | Ethnic Group | Not or | + + + Author + + + | Author | [facility] [employer] [facility] | + + + | Organization | [facility] [employer] [facility] | + [...] [place] | | | | | [address] | | + + + + + | Key Escobedo | ECON | Unknown | | + + + + + | Cathleen Escobedo | ECON | Unknown | | + + + + + Care Team Providers + +------+ + | Care Chain Hooker Name | Role | Phone | + [...] Long | | | | | | ([facility]) | Rd | | | | | | Procedures | [place], [place] | | | | | | CONSULT TO | [address] | | | | | | CARDIAC | Phone: | | | | | | [facility] - [facility] | [phone] | | | | | | | Fax: | | | | | | | [phone] | | +--------+--------+ + + + + [...] + + | 09/01/ | Hospital | [facility] [address] | [place], | | | 2013 - | Encounter | [id number] | [address] | | | | | [facility] | [place] [address] | | | 09/09/ | | [place], [place] | [phone] | | | 2013 | | [address] | | | | | | [phone] | | | +--------+ + + + [...] a 58 yo male was transferred from [facility] on 09/01 for treatment of ne wly diagnosed large ascending aortic aneurysm. He was admitted to the ICU for tight blood pr essure control. He was evaluated by cardiac surgery and consented for aortic aneurysm repair . He was then taken to the OR on 09/04. He did well in surgery and [facility]aned from the ventilator. [...] vital during the first 2 weeks at [facility]. No driving for 1 month or while [...] Maryana Jama PA-C Division of Cardiothoracic Surgery [facility] [employer] [place] Mail Code [id number] [facility] [place] [address] documented in this en counter Discharge Instructions Instructions Bobo Ramsey - 09/09/2013Patient Education Materials: aneurysm repair; p ost-op Additional Instructions: sternal/wound precautions Discharge Nurse: Bobo Ramsey Date: 09/09/2013 Discharge Time: 11:18 AM AttachmentsThe following attachments cannot be sent through Care Everywhere.ANEURYSM: THORA CIC AORTIC : POSTOP (VIETNAMESE)documented in this encounter Medications at Time of [...] non-focal s1-s2 tachy CTA bilateral Soft, non-tender [place], warm, dry Sternal incision is c,d,i Lab [...] x-ray: pending Assessment/Plan: 58 yo man from [facility], admitted for large ascending aortic [...] Deconditioned-- PT/OT (Electronically Signed) Ronald Cook PA-C [facility] Cardiac Surgery onald Cook - 09/07/2013 [...] bilateral s1-s2 RRR Sternal incision is c,d,i [place], warm, dry No peripheral edema Alert and [...] hypoexpanded lungs. Assessment/Plan: 58 yo man from [facility], admitted for large ascending aortic [...] Deconditioned-- PT/OT (Electronically Signed) Ronald Cook PA-C [facility] Cardiac Surgery Chaitanya Cho MD - 4 2:17 PM PDT [facility] DAILY Attending PROGRESS NOTE Attending Pager: [phone] I have personally reviewed history and physical with the [facility] housestaff and have indepe ndently confirmed findings. I agree with the assessment and have participated in plan. Off gtts. No interval concerns of note. Dx: 1)Ascending aortic aneurysm-S/P repair 2)Essemtial hypertension 3)Chronic pain 4)Impaired glucose tolerance by history 5)Agitation-Resolved Plan:Increasing beta alexy, etc. Ongoing management of pain and glucose> Stable for floor Chaitanya Wallace MD Division Pulmonary-Critical Care Medicine Mailcode N-67 Pager [phone]/ [facility] DEPARTMENT: [facility]- [phone] Place of Service: - Date of Service: 09/06/2013 CSN: [id number] Modifiers:GC Resident Involved: yes Suggested CPT: 97540 Subsequent Visit Prob Focused/Low Complexity 15 min Martin Zee PA-C - 09/06/2013 7:44 AM PDT [facility] DAILY PROGRESS NOTE (PA) Team Pager: [phone] Attendin Author: MARTIN HOUSE PA-C Attending Electrical Manufacturing Technician: Operating Surgeon: MD Destin Garcia MD POD# 2 Procedure: Ascending Aortic Reconstruction with 30 mm Dacron ICU day # 6 HPI: Richard Escobedo is a 58 y.o. male with a h/o HTN, HLD who is transferred from outside [facility] after an ascending aortic [...] discussed with Dr. Wallace. CARLITOS Yu PA-C [facility] DEPARTMENT: [facility] ICU CARDIAC [[id number]] Place of Service:- Inpatient Date of Service: 09/06/13 CSN: [id number] Suggested Modifier: None Suggested CPT: TO COPYING MACHINE REPAIRER Zahra Levine MD - 09/05/2013 8:08 PM PDT [facility] ATTENDING TARGET SETTER DAILY PROGRESS NOTE Team Pager: [phone] Attending Pager: [phone] Author: ZAHRA COOL MD Care plan d/w [...] is critically ill. Zahra Cool MD PhD Research Analyst Department of Anesthesiology and Perioperative Medicine [facility] DEPARTMENT: [facility] ICU CARDIAC [[id number]] Place of Service:- Inpatient Date of Service: 09/05/13 CSN: [id number] Suggested Modifier: None Suggested CPT: TO COPYING MACHINE REPAIRER Chaitanya Cho MD - 09/05/2013 3:44 PM PDT [facility] DAILY Attending PROGRESS NOTE Attending Pager: [phone] I have personally reviewed history and physical with the [facility] housestaff and have indepe ndently confimred findings. I agree with the assessment and have participated in plan. No significant events overnight.following extubation. On nicardipine gtt. Dx: 1)Ascending aortic aneurysm-S/P repair 2)Essemtial hypertension 3)Chronic pain 4)Impaired glucose tolerance by history 5)Agitation-Precipitant?-Improved Plan:adding in beta alexy with downward titration of nicadripine as tolerated Chaitanya Wallace MD Division Pulmonary-Critical Care Medicine Mailcode N-67 Pager [phone]/ [facility] DEPARTMENT: [facility]- [phone] Place of Service: - Date of Service: 09/05/2013 CSN: [id number] Modifiers: Resident Involved: yes Suggested CPT: 60898 Subsequent Visit Detailed/High complexity 35 min Martin Zee PA-C - 09/05/2013 9:14 AM PDT [facility] DAILY PROGRESS NOTE (PA) Team Pager: [phone] Attendin Author: MARTIN HOUSE PA-C Attending Electrical Manufacturing Technician: Operating Surgeon: MD Destin Garcia MD POD# 1 Procedure: Ascending Aortic Reconstruction with 30 mm Dacron ICU day # 5 HPI: Richard Escobedo is a 58 y.o. male with a h/o HTN, HLD who is transferred from outside [facility] after an ascending aortic [...] discussed with Dr. Wallace. CARLITOS Yu PA-C [facility] DEPARTMENT: [facility] ICU CARDIAC [[id number]] Place of Service:- Inpatient Date of Service: 09/05/13 CSN: [id number] Suggested Modifier: None Suggested CPT: TO COPYING MACHINE REPAIRER Zahra Levine MD - 09/04/2013 8:48 PM PDT [facility] ATTENDING TARGET SETTER DAILY PROGRESS NOTE Team Pager: [phone] Attending Pager: [phone] Author: ZAHRA COOL MD ATTESTATION: Seen with [...] is critically ill. Zahra Cool MD PhD Research Analyst Department of Anesthesiology and Perioperative Medicine [facility] DEPARTMENT: [facility] ICU CARDIAC [[id number]] Place of Service:- Inpatient Date of Service: 09/04/13 CSN: [id number] Suggested Modifier: None Suggested CPT: TO COPYING MACHINE REPAIRER Martin Zee P A-C - 09/04/2013 9:43 AM PDT [facility] DAILY PROGRESS NOTE (PA) Team Pager: [phone] Attendin Author: MARTIN HOUSE PA-C Attending Electrical Manufacturing Technician: Operating Surgeon: MD Destin Garcia MD ICU day # 4 HPI: Richard Escobedo is a 58 y.o. male with a h/o HTN, HLD who is transferred from outside [facility] after an ascending aortic aneurysm [...] discussed with Dr. Wallace. CARLITOS Yu PA-C [facility] DEPARTMENT: [facility] ICU CARDIAC [[id number]] Place of Service:- Inpatient Date of Service: 09/03/13 CSN: [id number] Suggested Modifier: None Suggested CPT: TO COPYING MACHINE REPAIRER Chaitanya Cho MD - 09/04/2013 8:00 AM PDT [facility] DAILY Attending PROGRESS NOTE Attending Pager: [phone] Date:09/04/2013 Author: CHAITANYA WALLACE MD Primary Service [...] this basename: FIO2, PH, PCO2, PO2, HCO3, OCHAV1OWC, V1MYTVRQ, ABGEXECESS, in the last 72 hours GI: [...] Wallace MD Division Pulmonary-Critical Care Medicine Mailcode [facility]-67 Pager [phone]/ [facility] DEPARTMENT: [facility] [phone] Place of Service: [facility] Date of Service: 09/04/2013 CSN: [id number] Modifiers:GC Resident Involved: No Suggested CPT: 26880 Subsequent Visit Exp Prob Foc/Mod Complexity 25 min Mckayla Snyder MD - 09/03/2013 9:07 PM [id number] NIGHT TARGET SETTER PROGRESS NOTE Team Pager: [phone] Attendin Events of the day, patient condition, and plan reviewed with the day team. Please see their note for details. I have examined the patient and reviewed the relevant data. HPI: 58 yo male with HTN, HL and borderline DM, now with ascending aortic aneurysm diagnosed aft er presenting to referring hospital with dyspnea. Transferred to [facility] on 09/01/13 for further management. Arrived [...] this critically ill patient. Jihan Mendoza MD Cutter Out Department of Anesthesiology and Nicolette-Operative Medicine Critical Care [facility] DEPARTMENT: [facility] ICU CARDIAC [[id number]] Place of Service:- Inpatient Date of Service: 09/03/2013 CSN: [id number] Suggested Modifier: Suggested CPT: TO COPYING MACHINE REPAIRER cGirr, Alex Echols DO - 09/03/2013 7:56 AM PDT [facility] DAILY PROGRESS NOTE (Resident) Team Pager: [phone] Attendin Author: ALEX RIOS DO Attending Electrical Manufacturing Technician: Operating Surgeon: MD Destin Garcia MD ICU day # 3 HPI: Richard Escobedo is a 58 y.o. male with a h/o HTN, HLD who is transferred from outside [facility] after an ascending aortic aneurysm [...] Cho MD - 09/03/2013 7:54 AM PDT [facility] DAILY Attending PROGRESS NOTE Attending Pager: [phone] I have personally reviewed history and physical with the [facility] housestaff and have indepe ndently examined patient. [...] Wallace MD Division Pulmonary-Critical Care Medicine Mailcode [facility]-67 Pager [phone]/ [facility] DEPARTMENT: [facility]- [phone] Place of Service: - Date of Service: 09/03/2013 CSN: [id number] Modifiers:GC Resident Involved: yes Suggested CPT: 36971 Critical Care, Initial 30-74 minutes Total Critical Care Time:32 minutes Mckayla Snyder MD - 09/02/2013 6:42 PM [id number] NIGHT TARGET SETTER PROGRESS NOTE Team Pager: [phone] Attendin Events of the day, patient condition, and plan reviewed with the day team. Please see their note for details. I have examined the patient and reviewed the relevant data. HPI: 58 yo male with HTN, HL and borderline DM, now with ascending aortic aneurysm diagnosed aft er presenting to referring hospital with dyspnea. Transferred to [facility] on 09/01/13 for further management. Arrived [...] risk of aortic ruptur caio Mendoza MD Cutter Out Department of Anesthesiology and Nicolette-Operative Medicine Critical Care [facility] DEPARTMENT: [facility] ICU CARDIAC [[id number]] Place of Service:- Inpatient Date of Service: 09/02/2013 CSN: [id number] Suggested Modifier: Suggested CPT: TO COPYING MACHINE REPAIRER Kemi Damon - 10:45 AM PDTTransthoracic echocardiogram completed. Final report to follow. Chaitanya Cho MD - 2013 7:54 AM PDT 8C DAILY Attending PROGRESS NOTE Attending Pager: [phone] I have personally reviewed history and physical with the [facility] housestaff and have indepe ndently examined patient. I agree with the assessment and have participated in plan. On high dose esmolol. With HR near target. No symptoms referable to dissection Dx: 1)Ascending aortic aneurysm 2)Essemtial hypertension 3)Chronic pain 4)Impaired glucose tolerance by history Plan:Attemptoing to transition onto orals with aggressive beta blockade ,e tc Chaitanya Wallace MD Division Pulmonary-Critical Care Medicine Mailcode [facility]-67 Pager [phone]/ [facility] DEPARTMENT: [facility]- [phone] Place of Service: Date of Service: 09/02/2013 CSN: [id number] Modifiers:GC Resident Involved: yes Suggested CPT: 93565 Subsequent Visit Detailed/High complexity 35 min Alex Johnston DO - 09/02/2013 7:51 AM PDT 8C DAILY PROGRESS NOTE (Resident) Team Pager: [phone] Attendin Author: ALEX RIOS DO Attending Electrical Manufacturing Technician: Operating Surgeon: MD Destin Garcia MD ICU day # 2 HPI: Richard Escobedo is a 58 y.o. male with a h/o HTN, HLD who is transferred from [facility] after an ascending aortic aneurysm was discovered on CTA. He was having chest pain and was hypertensive in PCP office and sent to ED for dissection workup. Large ascending aortic aneurysm (66cm x 7 cm in length) was discovered without e/o dissection. Patient then transf erred here for evaluation by CT surgery. Procedure date TBD. 24 Hour Events: CT reviewed by [facility] radiology. Per verbal report: no involvement [...] | 2019 | cyn | | [address] [facility] | | | | | | [address] | | | | | | [place], [place] | | | | | | [address] | | | | | | [phone] | | | | | | | [...] the | | | | PDT | ([facility]) | results section. | + +--------+ + + + | POTASSIUM, POC | Routin | 09/04/2013 | Aortic aneurysm | Results for this | | | e | 5:09 PM | without rupture | procedure are in the | | | | PDT | ([facility]) | results section. | + +--------+ + + + | GLUCOSE, POC | Routin | 09/04/2013 | Aortic aneurysm | Results for this | | | e | 5:09 PM | without rupture | procedure are in the | | | | PDT | ([facility]) | results section. | + +--------+ + + + | ARTERIAL BLOOD GAS, | Routin | 09/04/2013 | Aortic aneurysm | Results for this | | POC | e | 5:09 PM | without rupture | procedure are in the | | | | PDT | ([facility]) | results section. | + +--------+ + + + | CHLORIDE, POC | Routin | 09/04/2013 | Aortic aneurysm | Results for this | | | e | 5:09 PM | without rupture | procedure are in the | | | | PDT | ([facility]) | results section. | + +--------+ + + + | ALEXANDRA IONIZED CA, POC | Routin | 09/04/2013 | Aortic aneurysm | Results for this | | | e | 5:09 PM | without rupture | procedure are in the | | | | PDT | ([facility]) | results section. | + +--------+ + + + | LACTATE (ART), POC | Routin | 09/04/2013 | Aortic aneurysm | Results for this | | ISTAT | e | 4:45 PM | without rupture | procedure are in the | | | | PDT | ([facility]) | results section. | + +--------+ + + + | HEMOGLOBIN-LACY PEREZ | Routin | 09/04/2013 | Aortic aneurysm | Results for this | | | e | 4:45 PM | without rupture | procedure are in the | | | | PDT | ([facility]) | results section. | + +--------+ + + + | SODIUM POC | Routin | 09/04/2013 | Aortic aneurysm | Results for this | | | e | 4:45 PM | without rupture | procedure are in the | | | | PDT | ([facility]) | results section. | + +--------+ + + + | POTASSIUM POC | Routin | 09/04/2013 | Aortic aneurysm | Results for this | | | e | 4:45 PM | without rupture | procedure are in the | | | | PDT | ([facility]) | results section. | + +--------+ + + + | GLUCOSE POC | Routin | 09/04/2013 | Aortic aneurysm | Results for this | | | e | 4:45 PM | without rupture | procedure are in the | | | | PDT | ([facility]) | results section. | + +--------+ + + + | ARTERIAL BLOOD GAS, | Routin | 09/04/2013 | Aortic aneurysm | Results for this | | POC | e | 4:45 PM | without rupture | procedure are in the | | | | PDT | ([facility]) | results section. | + +--------+ + + + | CHLORIDE, POC | Routin | 09/04/2013 | Aortic aneurysm | Results for this | | | e | 4:45 PM | without rupture | procedure are in the | | | | PDT | ([facility]) | results section. | + +--------+ + + + | ALEXANDRA IONIZED CA, POC | Routin | 09/04/2013 | Aortic aneurysm | Results for this | | | e | 4:45 PM | without rupture | procedure are in the | | | | PDT | ([facility]) | results section. | + +--------+ + + + | BECKY (SERJIO)LACY | Routin | 09/04/2013 | Aortic aneurysm | Results for this | | ISTAT | e | 4:15 PM | without rupture | procedure are in the | | | | PDT | ([facility]) | results section. | + +--------+ + + + | TANIA-ANA POC | Routin | 09/04/2013 | Aortic aneurysm | Results for this | | | e | 4:15 PM | without rupture | procedure are in the | | | | PDT | ([facility]) | results section. | + +--------+ + + + | SODIUM POC | Routin | 09/04/2013 | Aortic aneurysm | Results for this | | | e | 4:15 PM | without rupture | procedure are in the | | | | PDT | ([facility]) | results section. | + +--------+ + + + | POTASSIUM, POC | Routin | 09/04/2013 | Aortic aneurysm | Results for this | | | e | 4:15 PM | without rupture | procedure are in the | | | | PDT | ([facility]) | results section. | + +--------+ + + + | GLUCOSE, POC | Routin | 09/04/2013 | Aortic aneurysm | Results for this | | | e | 4:15 PM | without rupture | procedure are in the | | | | PDT | ([facility]) | results section. | + +--------+ + + + | ARTERIAL BLOOD GAS, | Routin | 09/04/2013 | Aortic aneurysm | Results for this | | POC | e | 4:15 PM | without rupture | procedure are in the | | | | PDT | ([facility]) | results section. | + +--------+ + + + | CHLORIDE, POC | Routin | 09/04/2013 | Aortic aneurysm | Results for this | | | e | 4:15 PM | without rupture | procedure are in the | | | | PDT | ([facility]) | results section. | + +--------+ + + + | ALEXANDRA IONIZED CA, POC | Routin | 09/04/2013 | Aortic aneurysm | Results for this | | | e | 4:15 PM | without rupture | procedure are in the | | | | PDT | ([facility]) | results section. | + +--------+ + + + | LACTATE (ART) POC | Routin | 09/04/2013 | Aortic aneurysm | Results for this | | ISTAT | e | 3:59 PM | without rupture | procedure are in the | | | | PDT | ([facility]) | results section. | + +--------+ + + + | HEMOGLOBIN-MULUGETAOX, POC | Routin | 09/04/2013 | Aortic aneurysm | Results for this | | | e | 3:59 PM | without rupture | procedure are in the | | | | PDT | ([facility]) | results section. | + +--------+ + + + | SODIUM, POC | Routin | 09/04/2013 | Aortic aneurysm | Results for this | | | e | 3:59 PM | without rupture | procedure are in the | | | | PDT | ([facility]) | results section. | + +--------+ + + + | POTASSIUM, POC | Routin | 09/04/2013 | Aortic aneurysm | Results for this | | | e | 3:59 PM | without rupture | procedure are in the | | | | PDT | ([facility]) | results section. | + +--------+ + + + | GLUCOSE, POC | Routin | 09/04/2013 | Aortic aneurysm | Results for this | | | e | 3:59 PM | without rupture | procedure are in the | | | | PDT | ([facility]) | results section. | + +--------+ + + + | ARTERIAL BLOOD GAS, | Routin | 09/04/2013 | Aortic aneurysm | Results for this | | POC | e | 3:59 PM | without rupture | procedure are in the | | | | PDT | ([facility]) | results section. | + +--------+ [...] the | | | | PDT | ([facility]) | results section. | + +--------+ + + + | SODIUM, POC | Routin | 09/04/2013 | Aortic aneurysm | Results for this | | | e | 3:33 PM | without rupture | procedure are in the | | | | PDT | ([facility]) | results section. | + +--------+ [...] the | | | | PDT | ([facility]) | results section. | + +--------+ + + + | ARTERIAL BLOOD GAS, | Routin | 09/04/2013 | Aortic aneurysm | Results for this | | POC | e | 3:33 PM | without rupture | procedure are in the | | | | PDT | ([facility]) | results section. | + +--------+ [...] the | | | | PDT | ([facility]) | results section. | + +--------+ + + + | HEMOGLOBIN-COOX, POC | Routin | 09/04/2013 | Aortic aneurysm | Results for this | | | e | 3:02 PM | without rupture | procedure are in the | | | | PDT | ([facility]) | results section. | + +--------+ + + + | SODIUM, POC | Routin | 09/04/2013 | Aortic aneurysm | Results for this | | | e | 3:02 PM | without rupture | procedure are in the | | | | PDT | ([facility]) | results section. | + +--------+ + + + | POTASSIUM, POC | Routin | 09/04/2013 | Aortic aneurysm | Results for this | | | e | 3:02 PM | without rupture | procedure are in the | | | | PDT | ([facility]) | results section. | + +--------+ + + + | GLUCOSE, POC | Routin | 09/04/2013 | Aortic aneurysm | Results for this | | | e | 3:02 PM | without rupture | procedure are in the | | | | PDT | ([facility]) | results section. | + +--------+ + + + | ARTERIAL BLOOD GAS, | Routin | 09/04/2013 | Aortic aneurysm | Results for this | | POC | e | 3:02 PM | without rupture | procedure are in the | | | | PDT | ([facility]) | results section. | + +--------+ + + + | CHLORIDE, POC | Routin | 09/04/2013 | Aortic aneurysm | Results for this | | | e | 3:02 PM | without rupture | procedure are in the | | | | PDT | ([facility]) | results section. | + +--------+ + + + | ALEXANDRA ROBERT CA POC | Routin | 09/04/2013 | Aortic aneurysm | Results for this | | | e | 3:02 PM | without rupture | procedure are in the | | | | PDT | ([facility]) | results section. | + +--------+ + + + | LACTATE (ART), POC | Routin | 09/04/2013 | Aortic aneurysm | Results for this | | ISTAT | e | 2:07 PM | without rupture | procedure are in the | | | | PDT | ([facility]) | results section. | + +--------+ + + + | HEMOGLOBIN-ANA POC | Routin | 09/04/2013 | Aortic aneurysm | Results for this | | | e | 2:07 PM | without rupture | procedure are in the | | | | PDT | ([facility]) | results section. | + +--------+ + + + | SODIUM, POC | Routin | 09/04/2013 | Aortic aneurysm | Results for this | | | e | 2:07 PM | without rupture | procedure are in the | | | | PDT | ([facility]) | results section. | + +--------+ + + + | POTASSIUM, POC | Routin | 09/04/2013 | Aortic aneurysm | Results for this | | | e | 2:07 PM | without rupture | procedure are in the | | | | PDT | ([facility]) | results section. | + +--------+ + + + | GLUCOSE, POC | Routin | 09/04/2013 | Aortic aneurysm | Results for this | | | e | 2:07 PM | without rupture | procedure are in the | | | | PDT | ([facility]) | results section. | + +--------+ + + + | ARTERIAL BLOOD GAS, | Routin | 09/04/2013 | Aortic aneurysm | Results for this | | POC | e | 2:07 PM | without rupture | procedure are in the | | | | PDT | ([facility]) | results section. | + +--------+ + + + | CHLORIDE, POC | Routin | 09/04/2013 | Aortic aneurysm | Results for this | | | e | 2:07 PM | without rupture | procedure are in the | | | | PDT | ([facility]) | results section. | + +--------+ + + + | ALEXANDRA IONIZED CA, POC | Routin | 09/04/2013 | Aortic aneurysm | Results for this | | | e | 2:07 PM | without rupture | procedure are in the | | | | PDT | ([facility]) | results section. | + +--------+ [...] - [facility] | [address] | [place], [place] | | | [place] [address] | [address] | [address] | | | TESTS | | | [...] + + + | [facility]UMN [facility] | [address] [address] | [place], [place] | | | DOM POINT OF CARE | [address] | [address] | | | TESTS | | | [...] MARQUAM | [address] | [place], [place] | | | DOM POINT OF CARE | [address] | [address] | | | TESTS | | | | + + + + + X-RAY PORTABLE CHEST 1 VIEW (09/08/2013 9:51 AM PDT) + + + + + + | Component | Value | Ref Range | Performed | Pathologist | | | | | At | Signature | + + + + + + | X-RAY | STUDY: KS CHEST 1 VIEW | | | | [...] | | + +---------+ + + | [facility] DEPARTMENT OF | | | | [...] | | | LABORATORY | | | SRI LANKAN | | | SERVICES, | | | [...] | + + + + + | [facility] | [address] | [place] [address] | | | SERVICES, CORE | ANTOINE [...] MARQUAM | [address] | [place], [place] | | | [facility] OF CARE | [address] | [address] | | | TESTS | | | [...] - MARQUAM | [address] | [place], [place] | | | DOM POINT OF CARE | [address] | [address] | | | TESTS | | | [...] + + + | [facility] | [address] | [place], [place] | | | DOM POINT OF CARE | [address] | [address] | | | TESTS | | | [...] view image for the detailed interpretation from [employer] results. | CARDIOLOGY | + + + + + | Procedure Note | + + | Interface, Cardiology Results - 09/10/2013 9:39 AM PDT Please click on view image | | for the detailed interpretation from [employer] results. | + + + + + + + | Performing | Address | City/State/Zipcode | Phone Number | | Organization | | | | + + + + + | [facility] | [address] | [place], [place] | | | CARDIOLOGY | [address] | [address] | | + + + + + [...] MARQUAM | [address] | [place], [place] | | | [facility] | [address] | [address] | | | TESTS | | | [...] | + + + + + | [facility] | [address] | [place] [address] | | | SERVICES, CORE | ANTOINE [...] | | | LABORATORY | | | SRI LANKAN | | | SERVICES, | | | [...] [facility] | [address] | [place] [address] | | | SERVICES, CORE | [address]ARK [...] | + + + + + | [facility] | [address] | [place] [address] | | | SERVICES, CORE | ANTOINE [...] MARQUAM | [address] | [place], [place] | | | DOM POINT OF CARE | [address] | [address] | | | TESTS | | | [...] - MARQUAM | [address] | [place], [place] | | | DOM POINT OF CARE | [address] | [address] | | | TESTS | | | [...] HAMMOND | [address] | [place], [place] | | | [facility] | [address] | [address] | | | TESTS | | | [...] MARQUAM | [address] | [place], [place] | | | DOM POINT OF CARE | [address] | [address] | | | TESTS | | | [...] MARQUAM | [address] | [place], [place] | | | DOM POINT OF CARE | [address] | [address] | | | TESTS | | | [...] + + + | [facility] | [address] | [place], [place] | | | [facility] | [address] | [address] | | | TESTS | | | [...] MARQUAM | [address] | [place], [place] | | | DOM POINT OF CARE | [address] | [address] | | | TESTS | | | [...] LITAAM | [address] | [place], [place] | | | [facility] OF CARE | [address] | [address] | | | TESTS | | | [...] HAMMOND | [address] | [place], [place] | | | [facility] | [facility] | [address] | | | TESTS | | | [...] MARQUAM | [address] | [place], [place] | | | [facility] OF CARE | [address] | [address] | | | TESTS | | | [...] (H) | 60 - 99 mg/dL | [facility] - | | | GLUCOSE, | [...] STEPHANY | [address] | [place], [place] | | | [facility] | [address] | [address] | | | TESTS | | | [...] | + + + + + | [facility] | [address] | [place] [address] | | | SERVICES, CORE | [address] | | | + + + + + MAGNESIUM, PLASMA (09/06/2013 2:23 AM PDT) + +-------+ + + + | Component | Value | Ref Range | Performed | Pathologist | | | | | At | Signature | + +-------+ + + + | MAGNESIUM,P | 1.9 | 1.8 - 2.5 mg/dL | [facility] | | | LASMA | | | [...] | + + + + + | [facility] | [address] | [place] [address] | | | SERVICES, CORE | ANTOINE [...] | | | LABORATORY | | | SRI LANKAN | | | SERVICES, | | | [...] the MDRD equation recommended by the | [facility] | | National Kidney Disease Education [...] | + + + + + | [facility] | [address] | [place] [address] | | | RUDY FELDER | ANTOINE [...] STEPHANY | [address] | [place], [place] | | | [facility] CARE | [address] | [address] | | | TESTS | | | [...] HAMMOND | [address] | [place], [place] | | | [facility] | [address] | [address] | | | TESTS | | | [...] MARQUAM | [address] | [place], [place] | | | DOM POINT OF CARE | [address] | [address] | | | TESTS | | | [...] MARQUAM | [address] | [place], [place] | | | [facility] OF CARE | [facility] | [address] | | | TESTS | | | [...] HAMMOND | [address] | [place], [place] | | | [facility] [place] | [address] | [address] | | | TESTS | | | [...] MARQUAM | [address] | [place], [place] | | | [facility] OF CARE | [address] | [address] | | | TESTS | | | [...] - MARDANIELLAAM | [address] | [place], [place] | | | [facility]DO [facility]ERNAND[facility] OF CARE | [facility] | [address] | | | TESTS | | | [...] HAMMOND | [address] | [place], [place] | | | [facility] OF CARE | [address] | [address] | | | TESTS | | | [...] LITAAM | [address] | [place] | | | [facility] CARE | [address] | [address] | | | TESTS | | | [...] MARQUAM | [address] | [place], [place] | | | [facility] | [address] | [address] | | | TESTS | | | [...] HAMMOND | [address] | [place] | | | [facility] CARE | [address] | [address] | | | TESTS | | | [...] MARQUAM | [address] | [place] | | | [facility] | [address] | [address] | | | TESTS | | | [...] MARQUAM | [address] | [place], [place] | | | [facility]ER[facility]ND[facility] OF CARE | [facility] | [address] | | | TESTS | | | [...] HAMMOND | [address] | [place] | | | [facility] OF CARE | [address] | [address] | | | TESTS | | | [...] MARQUAM | [address] | [place], [place] | | | [facility] CARE | [address] | [address] | | | TESTS | | | [...] and | | | | | | Kamiah-Asher catheter. | | | | | | [...] [facility] | [address] | [place] [address] | | | RUDY FELDER | ANTOINE [...] | + + + + + | [facility] | [address] | [place] [address] | | | SERVICES, CORE | ANTOINE [...] [facility] | [address] | [place] [address] | | | SERVICES, CORE | [address] [...] | | | LABORATORY | | | SRI LANKAN | | | SERVICES, | | | [...] | + + + + + | [facility] | [address] | [place] [address] | | | SERVICES, CORE | [address] [...] | | | | | MICKEY WISE ([id number]) on | | | | | | 09/06/2013 3:26:49 PM | | | | + + + + + + + + | Specimen | + + | | + + + + + | Narrative | Performed At | + + + | Please click | [facility] | | on view image for the detailed interpretation from [employer] results. | CARDIOLOGY | + + + + + | Procedure Note | + + | Interface, Cardiology Results - 09/06/2013 3:26 PM PDT Please click on view image | | for the detailed interpretation from [employer] results. | + + + + + + + | Performing | Address | City/State/Zipcode | Phone Number | | Organization | | | | + + + + + | [facility] | [address] | [place], [place] | | | CARDIOLOGY | [address] | [address] | | + + + + + [...] | | | | | right IJ Kamiah-Asher | | | | | | catheter [...] IJ | | | | | | Kamiah-Asher catheter, ET | | | | | [...] [facility] | [address] | [place] [address] | | | SERVICES, CORE | [address] [...] [facility] | [address] | [place] [address] | | | SERVICES, CORE | [address] [...] + + | [facility] | [address] | [place] [address] | | | SERVICES, RUDY | [address] [...] [facility] | [address] | [place] [address] | | | SERVICES, CORE | [address] [...] [facility] | [address] | [place] [address] | | | SERVICES, CORE | [address] [...] [facility] | [address] | [place] [address] | | | SERVICES, CORE | ANTOINE [...] | | | LABORATORY | | | SRI LANKAN | | | SERVICES, | | | [...] | + + + + + | [facility] | [address] | [place] [address] | | | SERVICES, CORE | [address] [...] STEPHANY | [address] | [place], [place] | | | [facility] | [address] | [address] | | | TESTS | | | [...] | + + + + + | [facility] | [address] | [place] [address] | | | SERVICES, CORE | ANTOINE [...] [facility] | [address] | [place] [address] | | | RUDY FELDER | ANTOINE [...] + + + + | PRODUCT | [id number] | | [facility] | | | UNIT [...] + + + + | BLOOD | [id number] | | [facility] | | | PRODUCT [...] | + + + + + | [facility] | [address] | [place] [address] | | | PATHOLOGY | [address] [...] + + + + | PRODUCT | [id number] | | [facility] | | | UNIT [...] + + + + | BLOOD | [id number] | | [facility] | | | PRODUCT [...] | + + + + + | [facility] | [address] | [place] [address] | | | PATHOLOGY | [address] | | | + + + + + LACTATE (ART), POC (09/04/2013 5:09 PM PDT) + +-------+ + + + | Component | Value | Ref Range | Performed | Pathologist | | | | | At | Signature | + +-------+ + + + | LACTATE | 1.0 | 0.5 - 1.6 | [facility] - | | | ARTERIAL, | [...] MARQUAM | [address] | [place], [place] | | | ED[facility]DO [facility] | [address] | [address] | | | TESTS | | | [...] HAMMOND | [address] | [place], [place] | | | [facility] [place] | [address] | [address] | | | TESTS | | | [...] MARQUAM | [address] | [place] | | | [facility] OF CARE | [facility] | [address] | | | TESTS | | | [...] MARQUAM | [address] | [place], [place] | | | [facility] OF CARE | [address] | [address] | | | TESTS | | | [...] HAMMOND | [address] | [place], [place] | | | DOM POINT OF CARE | [address] | [address] | | | TESTS | | | [...] MARQUAM | [address] | [place], [place] | | | HILL, POINT OF CARE | [facility] | [address] | | | TESTS | | | [...] HAMMOND | [address] | [place] | | | [facility]ER[facility] OF CARE | [address] | [address] | | | TESTS | | | [...] - MARQUAM | [address] | [place], [place] | | | DOM POINT OF CARE | [address] | [address] | | | TESTS | | | [...] HAMMOND | [address] | [place], [place] | | | [facility]DO [facility] | [address] | [address] | | | TESTS | | | [...] MARQUAM | [address] | [place], [place] | | | EDM[facility]DO [facility]ERNA[facility] OF CARE | [address] | [address] | | | TESTS | | | [...] - LITAAM | [address] | [place], [place] | | | DOM POINT OF CARE | [address] | [address] | | | TESTS | | | [...] MARQUAM | | | | | | EMDUNDO FERNANDES | | | | | | [...] HAMMOND | [address] | [place], [place] | | | EDMUNDO FERNANDES OF CARE | [address] | [address] | | | TESTS | | | [...] MARQUAM | [address] | [place] | | | [facility] | [address] | [address] | | | TESTS | | | [...] - MARQUAM | [address] | [place], [place] | | | EDM[facility]DO F[facility] OF [place] | [address] | [address] | | | TESTS | | | [...] STEPHANY | [address] | [place], [place] | | | [facility]ER[facility] OF CARE | [address] | [address] | | | TESTS | | | [...] LITAAM | [address] | [place] | | | DOM POINT OF CARE | [address] | [address] | | | TESTS | | | [...] STEPHANY | [address] | [place] | | | [facility] | [facility] | [address] | | | TESTS | | | [...] MARDANIELLAAM | [address] | [place], [place] | | | [facility] | [facility] | [address] | | | TESTS | | | [...] MARQUAM | [address] | [place] | | | [facility] | [facility] | [address] | | | TESTS | | | [...] HAMMOND | [address] | [place], [place] | | | DOM POINT OF CARE | [address] | [address] | | | TESTS | | | [...] MARQUAM | [address] | [place] | | | EDMUNDO FERNANDES OF CARE | [facility] | [address] | | | TESTS | | | [...] MARQUAM | [address] | [place] | | | [facility] | [address] | [address] | | | TESTS | | | [...] MARQUAM | [address] | [place], [place] | | | DOM POINT OF CARE | [address] | [address] | | | TESTS | | | [...] HAMMOND | [address] | [place] | | | EDM[facility]DO [facility]ERNANDES OF CARE | [address] | [address] | | | TESTS | | | [...] MARDANIELLAAM | [address] | [place], [place] | | | [facility] | [address] | [address] | | | TESTS | | | [...] MARQUAM | [address] | [place] | | | DOM POINT OF CARE | [address] | [address] | | | TESTS | | | [...] HAMMOND | [address] | [place] | | | ED[facility]DO [facility]ES [facility] | [address] | [address] | | | TESTS | | | [...] MARDANIELLAAM | [address] | [place] | | | [facility] | [address] | [address] | | | TESTS | | | [...] MARQUAM | [address] | [place], [place] | | | EDMUNDO FERNANDES OF CARE | [facility] | [address] | | | TESTS | | | [...] HAMMOND | [address] | [place], [place] | | | DOM [facility] | [address] | [address] | | | TESTS | | | [...] - MARQUAM | [address] | [place], [place] | | | DOM POINT OF CARE | [facility] | [address] | | | TESTS | | | [...] | | | POC | | | EDUMNDO FERNANDES | | | | | | [...] [facility] - STEPHANY | [address] | [place], [place] | | | [facility] | [facility] | [address] | | | TESTS | | | [...] STEPHANY | [address] | [place] | | | [facility] | [facility] | [address] | | | TESTS | | | [...] LITAAM | [address] | [place], [place] | | | [facility] | [address] | [address] | | | TESTS | | | [...] HAMMOND | [address] | [place] | | | [facility] | [facility] | [address] | | | TESTS | | | [...] MARDANIELLAAM | [address] | [place] | | | EDMUNDO FERNANDES OF CARE | [facility] | [address] | | | TESTS | | | [...] MARQUAM | [address] | [place] | | | [facility] | [address] | [address] | | | TESTS | | | [...] HAMMOND | [address] | [place] | | | [facility] | [facility] | [address] | | | TESTS | | | [...] MARQUAM | [address] | [place], [place] | | | [facility]ND[facility] OF CARE | [address] | [address] | | | TESTS | | | [...] | | POC | | | EDMUNDO FERNANDSE | | | | | | OF [...] STEPHANY | [address] | [place], [place] | | | EDM[facility]DO [facility]ERNAND[facility] OF CARE | [address] | [address] | | | TESTS | | | [...] STEPHANY | [address] | [place], [place] | | | [facility] CARE | [address] | [address] | | | TESTS | | | [...] HAMMOND | [address] | [place], [place] | | | [facility] CARE | [address] | [address] | | | TESTS | | | [...] STEPHANY | [address] | [place] | | | [facility] | [address] | [address] | | | TESTS | | | [...] - STEPHANY | [address] | [place], [place] | | | [facility]DO [facility]ERNA[facility] OF CARE | [address] | [address] | | | TESTS | | | [...] + + + | [facility] | [address] | [place], [place] | | | [facility]DO [facility] | [address] | [address] | | | TESTS | | | [...] MARQUAM | [address] | [place], [place] | | | ED[facility]DO [facility]ERNAND[facility] OF CARE | [address] | [address] | | | TESTS | | | [...] HAMMOND | [address] | [place], [place] | | | DOM POINT OF CARE | [address] | [address] | | | TESTS | | | [...] MARQUAM | [address] | [place], [place] | | | EDMUNDO FERNANDES OF CARE | [facility] | [address] | | | TESTS | | | [...] STEPHANY | [address] | [place], [place] | | | ANKITA FERNANDES | [facility] | [address] | | | TESTS | | | [...] HAMMOND | [address] | [place] | | | [facility]UNDO [facility] | [address] | [address] | | | TESTS | | | [...] MARQUAM | [address] | [place], [place] | | | DOM POINT OF CARE | [address] | [address] | | | TESTS | | | [...] - MARQUAM | [address] | [place], [place] | | | DOM POINT OF CARE | [address] | [address] | | | TESTS | | | [...] HAMMOND | [address] | [place] | | | [facility] | [address] | [address] | | | TESTS | | | [...] MARQUAM | [address] | [place], [place] | | | EDM[facility]DO [facility]ERNAND[facility] OF CARE | [address] | [address] | | | TESTS | | | [...] HAMMOND | [address] | [place], [place] | | | ED[facility]DO [facility] OF CARE | [address] | [address] | | | TESTS | | | [...] MARQUAM | [address] | [place], [place] | | | DOM POINT OF CARE | [address] | [address] | | | TESTS | | | [...] + + + | [facility] | [address] | [place], [place] | | | EDMUNDO [facility]ERNAND[facility] OF CARE | [address] | [address] | | | TESTS | | | [...] | + + + + + | [facility] | [address] | [place] [address] | | | SERVICES, CORE | ANTOINE [...] [facility] | [address] | [place] [address] | | | SERVICES, CORE | [address] [...] | | | LABORATORY | | | SRI LANKAN | | | SERVICES, | | | [...] | + + + + + | [facility] | [address] | [place] [address] | | | SERVICES, CORE | [address] | | | + + + [...] focallyfibrous. | | | | | | Field Sales Engineer | | | | | | sections [...] | + + + + + | [facility] | [address] | [place] [address] | | | PATHOLOGY | [address] [...] MARQUAM | [address] | [place], [place] | | | ED[facility]DO [facility]ERNA[facility] OF CARE | [address] | [address] | | | TESTS | | | [...] HAMMOND | [address] | [place] | | | EDMUNDO FERNANDES OF CARE | [address] | [address] | | | TESTS | | | [...] + + + + | PRODUCT | [id number] | | [facility] | | | UNIT [...] + + + + | BLOOD | [id number] | | [facility] | | | PRODUCT [...] DEPARTMENT OF | [address] | [place] [address] | | | PATHOLOGY | [address] [...] + + + + | PRODUCT | [id number] | | [facility] | | | UNIT [...] + + + + | BLOOD | [id number] | | [facility] | | | PRODUCT [...] | + + + + + | [facility] | [address] | [place] [address] | | | PATHOLOGY | [address] [...] + + + + | PRODUCT | [id number] | | [facility] | | | UNIT [...] + + + + | BLOOD | [id number] | | [facility] | | | PRODUCT [...] DEPARTMENT OF | [address] | [place] [address] | | | PATHOLOGY | [address] [...] + + + + | PRODUCT | [id number] | | [facility] | | | UNIT [...] + + + + | BLOOD | [id number] | | [facility] | | | PRODUCT [...] | + + + + + | [facility] | [address] | [place] [address] | | | PATHOLOGY | [address] [...] [facility] | [address] | [place], [place] | | | [facility] | [address] | [address] | | | TESTS | | | [...] <1.005 (L) | 1.005 - 1.030 | [facility] | | | GRAVITY | | | [...] | + + + + + | [facility] | [address] | [place] [address] | | | SERVICES, CORE | PARK [...] [facility] | [address] | [place] [address] | | | SERVICES, CORE | ANTOINE [...] | + + + + + | [facility] | [address] | [place] [address] | | | RUDY FELDER | [address] [...] [facility] | [address] | [place], [place] | | | DOM POINT OF CARE | [facility] | [address] | | | TESTS | | | [...] | + + + + + | [facility] | [address] | [place] [address] | | | SERVICES, CORE | PARK [...] | + + + + + | [facility] | [address] | [place] [address] | | | SERVICES, CORE | PARK [...] | | | LABORATORY | | | SRI LANKAN | | | SERVICES, | | | [...] | + + + + + | [facility] | [address] | [place] [address] | | | SERVICES, CORE | ANTOINE [...] [facility] | [address] | [place], [place] | | | [facility] | [address] | [address] | | | TESTS | | | [...] - STEPHANY | [address] | [place], [place] | | | [facility] | [address] | [address] | | | TESTS | | | [...] [facility] | [address] | [place] [address] | | | SERVICES, CORE | ANTOINE [...] [facility] | [address] | [place] [address] | | | SERVICES, CORE | PARK [...] | | | LABORATORY | | | SRI LANKAN | | | SERVICES, | | | [...] | + + + + + | [facility] | [address] | [place] [address] | | | SERVICES, [facility] | [address] | | | + [...] + + + | X-RAY | STUDY: KS CHEST 1 VIEW | | | | [...] | + + + + + | [facility] | [address] | [place] [address] | | | SERVICES, | [address] [...] [facility] | [address] | [place] [address] | | | SERVICES, | [address] [...] [facility] | [address] | [place] [address] | | | SERVICES, CORE | PARK [...] | + + + + + | [facility] | [address] | [place] [address] | | | SERVICES, CORE | ANTOINE [...] | + + + + + | [facility] | [address] | [place] [address] | | | BRADFORD, RUDY | ANTOINE [...] | | | LABORATORY | | | SRI LANKAN | | | SERVICES, | | | [...] | + + + + + | [facility] | [address] | [place] [address] | | | SERVICES, CORE | [address]ARK [...] (H) | 60 - 99 mg/dL | [facility] - | | | GLUCOSE, | [...] H[facility]D | [address] | [place], [place] | | | DOM POINT OF CARE | [address] | [address] | | | TESTS | | | [...] HODGES | | | | | | (2553) on 09/04/2013 | | | | | | 10:06:49 PM | | | | + + + + + + + + | Specimen | + + | | + + + + + | Narrative | Performed At | + + + | Please click | [facility] | | on view image for the detailed interpretation from [facility] results. | CARDIOLOGY | + + + + + | Procedure Note | + + | Interface, Cardiology Results - 09/04/2013 10:07 PM PDT Please click on view image | | for the detailed interpretation from [facility] results. | + + + + + + + | Performing | Address | City/State/Zipcode | Phone Number | | Organization | | | | + + + + + | [facility] | [address] | [place], [place] | | | CARDIOLOGY | [address] | [address] | | + + + + + [...] | | | | | | Starting [facility] 09/03/13 at 0230, | | | | | | | Until [facility] 09/03/13 at 0245 | | | [...] | | | | ONCE, 1 dose, [place] 09/06/13 at 2215 | | PM PDT | | | | + +-------+ +--------+---+---+ +---+---+ | | | +---+---+ + +-------+ +--------+---+---+ | potassium chloride SR (K-DUR) | Given | 09/08/19 | 20 mEq | | | | tablet 20 mEq 20 mEq, oral, | | 14 12:00 | | | | | ONCE, 1 dose, [facility] 09/07/13 at 0000 | | AM PDT [...]
--- OUTSIDE RECORDS SUMMARY | ~2019-11-14 | XMS | Encounter Summary ---
Demographics + + + | Address | [address] | | | [place] [address] | + + + | Home Phone | | + + + | Preferred Language | Unknown | + + + | Marital Status | | + + + | Mormonism Affiliation | NRP | + + + | Race | or | + + + | Ethnic Group | Not or | + + + Author + + + | Author | [facility] [employer] [facility] | + + + | Organization | [facility] [employer] [facility] | + + + | Address | Unknown | + + + | Phone | Unavailable | + + + Support + + + + + | Name | Relationship | Address | Phone | + + + + + | Kim Sigo | ECON | [address] | | | | | [place] | | | | | [address] | | + + + + + | Key Escobedo | ECON | Unknown | | + + + + + | Cathleen Escobedo | ECON | Unknown | | + + + + + Care Team Providers + +------+ + | Care Train Reservation Clerk Name | Role | Phone | + +------+ + | Anupama Juárez | PCP | | + +------+ + Encounter Details +--------+ + + + + | Date | Type | Department | Care Team | Description | +--------+ + + + + | 09/02/ | Results | Stress | Other, Faculty | | | 2013 | Only | Echocardiography | [phone] | | | | | [address] | | | | | | Loop Mailcode: | | | | | | [id number] Outpatient | | | | | | Clinic Building | | | | | | [place], [place] | | | | | | [address] | | | | | | [phone] | | | +--------+ + + + [...] [address] | | | | | | [place], [place] | | | | | | [address] | | | | | | [phone] | | | | | | | [...] | | CARDIOLOGY | [address] | [address] | | + + + + + documented in this encounter Visit Diagnoses Not on filedocumented in this encounter"
--- OUTSIDE RECORDS SUMMARY | ~2019-11-14 | XMS | Clinical Summary ---
Demographics + + + | Address | [address] | | | [place] [address] | + + + | Home Phone | | + + + | Preferred Language | Unknown | + + + | Marital Status | | + + + | Jewish Affiliation | NRP | + + + [...] [place] | | | | | [address] | | + + + + + | Key Escobedo | ECON | Unknown | | + + + + + | Cathleen Escobedo | ECON | Unknown | | + + + + + Care Team Providers + +------+ + | Care Vp Account Director Name | Role | Phone | + +------+ + | Anupama Juárez | PCP | | + +------+ + Source Comments [facility] is [facility] and [facility] InPatient[facility] Allergies + + + + + [...] + + + + | 11/10/ | Grain Origination Specialist | Thoracic Surgery | Slade Cox NP [...] 10/21/ | Anesthesia | Pre-operative | Ai Buenrostro, | | | 2019 | Event | Medicine | SCRATCHER TENDER | | +--------+ + + + + | 10/21/ | Office | Pre-operative | Ai Buenrostro, | Preop examination | | 2019 | Visit | Medicine | SCRATCHER TENDER | (Primary Dx); | | | | [...] | 2019 | cyn | | [address] [facility] | | | | | | [address] | | | | | | [place], [place] | | | | | | [address] | | | | | | [phone] | | | | | | | [...] / Lot | + +------+-------+ +--------+--------+--------+ | Donnellson Pledget Ptfe 2.5cm X | | N/A: | BARD | | 06/12/ | [id number] | | 15cm - [id number]: | | Chest | | | 2019 | / | | Qty: 1 on 09/04/2013 by | | | | | | /[id number] | | Destin Scott MD at [facility] | | | | | | 205 | | INPATIENT REV LOC | | | | | | | + +------+-------+ +--------+--------+--------+ | Graft Hemashield [place] | | N/A: | [employer] | | 01/10/ | [id number] | | Woven Dbl Velour 30 X 30 Cm - | | Chest | MEDICAL | | 2018 | [id number] | | [id number]: Qty: 1 on | | | | | | P0 / | | 09/04/2013 by Tyler, | | | | | | /[id number] | | MD Destin at [facility] INPATIENT | | | | | | 460 | | REV LOC | | | | | | | + +------+-------+ +--------+--------+--------+ | Coseal Surgical Sealant 8ml - | | N/A: | HAIR | | 06/12/ | [id number] | | [id number]: Qty: 1 on | | Chest | HEALTHCARE | | 2014 | / | | 09/04/2013 by Tyler, | | | | | | /[id number] | | MD Destin at [facility] INPATIENT | | | | | | 235 | | REV LOC | | | | | | | + +------+-------+ +--------+--------+--------+ | Plate Sternum Wire Acutie - | | | ACUTE | | | [id number] | | [id number]: Qty: 2 on | | | INNOVATIONS | | | / | | 09/04/2013 at [facility] INPATIENT | | | | | [...] At | + + + | EXAM: MO CHEST 1 VIEW HISTORY: s/p L VATS [...] Note | + + | Service Account, Socratic Res In Interface - 10/31/2019 5:28 PM PDT EXAM: MO CHEST 1 | | VIEW HISTORY: s/p [...] | + + + + + | [facility] | [address] | [place] [address] | | | SERVICES, CORE | ANTOINE [...] | | | LABORATORY | | | SWEDISH | | | SERVICES, | | | [...] | + + + + + | [facility] | [address] [facility] | [place] [address] | | | SERVICES, RUDY | ANTOINE [...] | | | LABORATORY | | | SWEDISH | | | SERVICES, | | | [...] | + + + + + | [facility] | [address] [facility] | [place] [address] | | | SERVICES, RUDY | ANTOINE [...] STEPHANY | [address] | [place], [place] | | | DOM POINT OF CARE | [facility] | [address] | | | TESTS | | | [...] PathologistPathology, | | | | | | [facility] | | | | | [...] | | | | | | number [id number]. Lymph | | | | | | [...] identified. | | | | | | Java Manager sections | | | | | | [...] | | | | | | cassette D1.([id number]) | | | | + + + [...] PathologistPathology, | | | | | | [facility] | | | | | | University5:30 [...] PathologistPathology, | | | | | | [facility] | | | | | | University5:42 [...] PathologistPathology, | | | | | | [facility] | | | | [...] | + + + + + | [facility] | [address] | [place] [address] | | | PATHOLOGY | [address] [...] INTUBATION ATTEMPT | | | 1 Videolaryngoscopy: [facility] Standard geometry curved blade | | | [...] used: | | | Ultrasound guided and [place] technique Ultrasound Image: Not | | | [...] [facility] | [address] | [place] [address] | | | SERVICES, CORE | [address]ARK [...] | + + + + + | [facility] | [address] | [place] [address] | | | SERVICES, | [address] [...] | + + + + + | [facility] | [address] | [place] [address] | | | SERVICES, | [address] [...] + | TESTING | [facility] | | [facility] - | | | LOCATION | HealthComment: [facility] | | ADULT | | | | listed as Resulting lab | | ENDOCRINOLO | | | | d/t One [facility] Health | | GY | [...] - ADULT | [address] | [place] [address] | | | ENDOCRINOLOGY | [address] [...] MEDICARE | MEDICA | xxxxxxxxxxx | | [phone] | [address] | Medica | | | RE A & | | [address]20-[address] | 1 | [address] | re | | | B | | esent | | [place] | | | | | | | | [address] | | + +--------+ +--------+ + +--------+ | [facility] | | xxxxxxxxx | 05/13/19 | | [...] | 1956 | [phone] | [place] [address] | | | aleida | | | 1 (Home) | | + +--------+ +--------+ + + | Richard Escobedo III | Agency | Self | [birth year] | | [address] | | | | | 5 | [phone] | [place] [address] | | | | | | 1 [...]
--- OUTSIDE RECORDS SUMMARY | ~2019-11-14 | XMS | Encounter Summary ---
Demographics + + + | Address | [address] | | | [place] [address] | + + + | Home Phone | | + + + | Preferred Language | Unknown | + + + | Marital Status | | + + + | Hinduism Affiliation | NRP | + + + | Race | or | + + + | Ethnic Group | Not or | + + + Author + + + | Author | [facility] | + + + | Organization | [facility] [employer] [facility] | + + + | Address | Unknown | + + + | Phone | Unavailable | + + + Support + + + + + | Name | Relationship | Address | Phone | + + + + + | Kim Sigo | ECON | [address] | | | | | [place] | | | | | [address] | | + + + + + | Key Escobedo | ECON | Unknown | | + + + + + | Cathleen Escobedo | ECON | Unknown | | + + + + + Care Team Providers + +------+ + | Care Store Receiver Name | Role | Phone | + [...] | | 2020 | | Surgery at [facility] | [address] | left lower lobe of | | | | [address] | [address] | lung (HCC); Neoplasm | | | | Mailcode: Center | [place], [place] | | | | | [facility] and | [address] | | | | | [facility] | [phone] | | | | | [place], [place] | | | | | | [address] | | | | | | [phone] | | | +--------+ + + + [...] | 2019 | chebinaled | | [address] [facility] | | | | | | [address] | | | | | | [place], [place] | | | | | | [address] | | | | | | [phone] | | | | | | | [...] [facility] | [address] | [place] [address] | | | SERVICES, | [address] [...] [facility] | [address] | [place] [address] | | | SERVICES, | [address] [...] + + + + + | [facility] | [address] | [place] [address] | | | SERVICES, CORE | ANTOINE [...]
[~2019-11-14 11:28] MED LIST changes: +CYCLOBENZAPRINE10 MG PO; +IRBESARTAN150 MG PO; +LIPITOR10 MG PO; +METOPROLOL TAR100 MG PO; +POTASSIUM CHLO10 MEQ PO
[2019-11-14] MEDS ORDERED: ZITHROMAX250 MG PO (13:11)
[2019-11-14] MEDS ORDERED: VENTOLIN HFA18 GM INH (13:11)
--- NOTE | 2019-11-14 13:32 | NUR ---
COVID SWAB COLLECTED NO COMPLICATIONS
== END 2019-11-14 13:40 | disposition home or self-care (01) ==
LOC: ED 11:28
DX: J40 Bronchitis, not specified as acute or chronic (principal); I10 Essential (primary) hypertension; Z87.891 Personal history of nicotine dependence; Z88.1 Allergy status to other antibiotic agents; Z79.899 Other long term (current) drug therapy; Z20.828 Contact with and (suspected) exposure to other viral communicable diseases
CPT/HCPCS: 71045; 99284-25; C9803; U0002

== ENCOUNTER 2020-02-02 11:41 | Day surgery (SDC) | payer MEDICARE, OTHER ==
[~2020-02-02] VITALS: Ht 165.1 cm; Wt 91.2 kg
[~2020-02-02 11:41] MED LIST changes: +ROBAXIN-750750 MG PO; +VENTOLIN HFA18 GM INH; +ZITHROMAX250 MG PO
--- NOTE | 2020-02-02 14:46 | NUR ---
02/02/20 1446 [place] 1341 PT ARRIVED IN PACU AWAKE WITH NO C/O'S. ABD SOFT AND PASSING FLATUS. 1350 SITTING UP IN BED SIPPING ON WATER. 1400 DC INSTRUCTIONS GIVEN. ALL QUESTIONS ANSWERED. 1415 SITTING AT BEDSIDE WAITING FOR RIDE.
--- NOTE | 2020-02-03 13:20 | OR ---
[facility] [address] [place], [place] [address] Signed DATE OF OPERATION: 02/02/2020 SURGEON: Danielle Osborn MD PREOPERATIVE DIAGNOSES: Constipation without associated rectal bleeding, no family history of colon cancer. POSTOPERATIVE DIAGNOSES: 1. Internal hemorrhoids. 2. Diminutive polyps of rectum, otherwise normal. PROCEDURE: Total colonoscopy to cecum with cold morcellation polypectomy x2. ANESTHESIA: Intravenous sedation, fentanyl 100 mcg and Versed 5 mg. INDICATION: This 64-year-old Congol[place] man is a patient of Raiza Mena PA-C of [facility]. He is referred for colonoscopy on the basis of constipation issues. He has no blood per rectum and his constipation is not severe. He has no family history of colon cancer. The patient underwent lung resection in the past year and thinks his constipation may have been related to postoperative analgesic medications (Percocet) that he had at that time. He is admitted to undergo colonoscopy. He understands the risks of bleeding, infection and perforation. Notably, patient says that he had colonoscopy a number of years ago and does not believe there are any abnormalities at that time. FINDINGS: The prep was excellent. Complete colonoscopy was undertaken to the cecum without question. He had no sign of diverticular formation or colitis and no stricture. He did have what appeared to be 2 diminutive polyps of the rectum, both were excised with cold morcellation technique. There were internal hemorrhoids as well. DESCRIPTION OF PROCEDURE: The patient was brought to the endoscopy suite and placed in the lateral decubitus position given intravenous sedation to the point of slurred speech and nystagmus. Digital rectal examination was normal. Electronically Signed By: DANIELLE OSBORN MD 02/03/20 1320 PATIENT NAME: MARTITA PARHAM III OPERATIVE REPORT DATE OF : 53 REPORT #: [id number] PHYSICIAN: DANIELLE OSBORN MD PCP: RAIZA MENA REPORT IS CONFIDENTIAL AND NOT TO BE RELEASED WITHOUT AUTHORIZATION [facility] [address] [place], [place] [address] Signed The Olympus video colonoscope was passed in the rectum and manipulated throughout the colon ultimately intubating the cecum itself. The ileocecal valve and appendiceal orifice were normal. Photographs were taken. The scope was withdrawn, examination throughout showed no sign of abnormality upon withdrawal of the scope including no sign of colitis or cancer in the rectum on retroflexed view, internal hemorrhoids were noted as well as 2 very diminutive polyps probably hyperplastic. Both were excised and passed in the same specimen container. The scope was straightened, withdrawn and removed. The patient was taken to the recovery room in good condition. CONCLUDING DIAGNOSIS: Diminutive polyps and internal hemorrhoids. PLAN: If pathology shows no evidence of adenomas, repeat in 7 years, if adenomas in 5 years, sooner if clinically indicated. I would recommend high-fiber diet. The patient will return to the ongoing care of Raiza Mena PA-C. MD TINY Ordonez/JACQUI /[id number] cc: Raiza Mena Copies: RAIZA MENA ~ Electronically Signed By: DANIELLE OSBORN MD 02/03/20 1320 PATIENT NAME: MARTITA PARHAM III OPERATIVE REPORT DATE OF : 53 REPORT #: [id number] PHYSICIAN: DANIELLE OSBORN MD PCP: RAIZA MENA REPORT IS CONFIDENTIAL AND NOT TO BE RELEASED WITHOUT AUTHORIZATION
--- NOTE | 2020-02-04 19:22 | PATH ---
[facility] [address] [place], [place] [address] Signed SPECIMEN(S): A RECTAL POLYP SPECIMEN SOURCE: A. RECTAL POLYP CLINICAL HISTORY: Screening. Small polyp of rectum, internal hemorrhoids. MICROSCOPIC DESCRIPTION: Histologic sections of all submitted blocks are examined by light microscopy. These findings, together with the gross examination, support the pathologic diagnosis. FINAL PATHOLOGIC DIAGNOSIS: Rectum, polyp, polypectomy: - Fragments of rectal mucosa with no histopathologic abnormality. - Negative for dysplasia or malignancy. NAL:caw:C__ GROSS DESCRIPTION: The specimen, labeled "WS, #1," and designated on the requisition "rectum polypectomy," is received in formalin and consists of 3 olivares soft tissue fragment(s) that measure 0.3 up to 0.4 cm in greatest dimension. The specimen is entirely submitted in cassette (A1). AI (under the direct supervision of a pathologist) The Gross Description was prepared using a voice recognition system. The report was reviewed for accuracy; however, sound-alike word errors, addition and/or deletions may occur. If there is any question about this report, please contact Client Services. PERFORMING LABORATORY: The technical component was performed by [employer], [address] [place] [address] (Chemical Unit Operator: Anisa Fuller MD; CLIA# [id number]). [facility], [address] [address] (CLIA# [id number]). Diagnostician: Viky Bhagat MD Pathologist Electronically Signed 02/04/2020 PATIENT NAME: MARTITA PARHAM III PATHOLOGY DATE OF : 53 REPORT #: [id number] PHYSICIAN: BRIANA PATHOLOGY PCP: KEMI MENA REPORT IS CONFIDENTIAL AND NOT TO BE RELEASED WITHOUT AUTHORIZATION [address] [address] Signed Copies: ~ PATIENT NAME: MARTITA PARHAM III PATHOLOGY DATE OF : 53 REPORT #: [id number] PHYSICIAN: BRIANA PATHOLOGY PCP: KEMI MENA REPORT IS CONFIDENTIAL AND NOT TO BE RELEASED WITHOUT AUTHORIZATION
== END 2020-02-02 14:26 | disposition home or self-care (01) ==
LOC: OPS 11:41 → DS 11:46 → OPS 13:00
PROVIDERS: ATTEND Surgery
PROC: 0DBP8ZZ Excision of Rectum, Via Natural or Artificial Opening Endoscopic (ICD-10-PCS; principal; 2020-02-02 13:00)
DX: K62.1 Rectal polyp (principal); K64.8 Other hemorrhoids; I10 Essential (primary) hypertension; Z79.899 Other long term (current) drug therapy; Z85.118 Personal history of other malignant neoplasm of bronchus and lung
CPT/HCPCS: 88305; 99153; G0500; J2250; J3010; J7121

== ENCOUNTER 2021-09-23 15:35 | Emergency (ER) | payer MEDICARE, OTHER ==
[~2021-09-23] VITALS: Ht 165.1 cm; Wt 91.2 kg
== END 2021-09-23 18:09 | disposition home or self-care (01) ==
LOC: ED 15:35
DX: Z20.822 Contact with and (suspected) exposure to COVID-19 (principal); I10 Essential (primary) hypertension; E78.00 Pure hypercholesterolemia, unspecified; R73.03 Prediabetes; Z87.891 Personal history of nicotine dependence; Z88.8 Allergy status to other drugs, medicaments and biological substances; Z88.1 Allergy status to other antibiotic agents; Z79.899 Other long term (current) drug therapy
CPT/HCPCS: 87502; 99283; U0003

== ENCOUNTER 2022-09-28 20:41 | Emergency (ER) | payer MEDICARE, OTHER ==
[~2022-09-28] VITALS: Ht 165.1 cm; Wt 91.2 kg
[~2022-09-28 20:41] MED LIST changes: +AVAPRO300 MG PO; -IRBESARTAN150 MG PO; -LIPITOR10 MG PO; +LIPITOR20 MG PO
[2022-09-28] MEDS ORDERED: INDAPAMIDE2.5 MG PO (21:14)
[2022-09-28] MEDS ORDERED: ZANAFLEX4 M1 PO (21:14)
[2022-09-28 21:34] VITALS: BP 138/72
== END 2022-09-28 22:07 | disposition home or self-care (01) ==
LOC: ED 20:41
DX: Z23 Encounter for immunization (principal); I10 Essential (primary) hypertension; Z87.891 Personal history of nicotine dependence; Z88.1 Allergy status to other antibiotic agents; Z88.8 Allergy status to other drugs, medicaments and biological substances; Z79.899 Other long term (current) drug therapy
CPT/HCPCS: 90471; 90715; 99282-25

== ENCOUNTER 2023-06-17 12:13 | Inpatient (IN) | payer MEDICARE, OTHER ==
[~2023-06-17] VITALS: Ht 165.1 cm; Wt 89.7 kg
[~2023-06-17 12:13] MED LIST changes: +INDAPAMIDE2.5 MG PO; +ZANAFLEX4 MG PO
[2023-06-17] MEDS ORDERED: ondansetron HCL 4 MG/2 ML VIAL IV ONE (12:30)
[2023-06-17 12:33] LABS: BILIRUBIN, URINE NEGATIVE (negative); BLOOD/HGB, URINE NEGATIVE (Negative); KETONE, URINE TRACE (Negative); LEUK ESTERASE, URINE NEGATIVE (negative); NITRITE, URINE NEGATIVE (negative); PH, URINE 6.5 (5-7)
[2023-06-17 12:34] LABS: BASOPHILS 0.2 % (0-2); EOSINOPHILS 0.1 % (0-6); HEMATOCRIT 41.5 % (35.0-50.0); HEMOGLOBIN 13.8 g/dL (12.0-18.0); LYMPHOCYTES 10.9 % (24-44); MCH 31.5 (27-36); MCHC 33.3 g/dl (30-36); MCV 94.6 fl (81-99); MONOCYTES 4.7 % (0-12); NEUTROPHILS 84.1 % (39-80); PLATELET COUNT 198 K/uL (140-440); RBC 4.39 M/ul (4.3-5.7); RDW 13.9 (10.5-15.0)
[2023-06-17 12:42] LABS: ALBUMIN 3.7 g/dL (3.4-5.0); ALBUMIN/GLOBULIN RATIO 1.12 (1.1-2.4); ANION GAP 13.2 (7-21); BILIRUBIN, TOTAL 0.8 ng/dL (0.2-1.0); BUN/CREATININE RATIO 26.76 (6.0-28.6); CALCIUM 8.8 mg/dL (8.5-10.1); CREATININE, SERUM 0.71 mg/dL (0.70-1.30); POTASSIUM 3.2 mmol/L (3.5-5.1)
[2023-06-17] MEDS ORDERED: HYDROmorphone HCL 1 MG/ML SYR IV PRN ×2 (13:15→21:15)
[2023-06-17] MEDS ORDERED: SODIUM CHLORIDE 0.9% 1,000 ML IV ONE (13:15)
[2023-06-17] MEDS ORDERED: CEFEPIME HCL/D5W 2 GM/100 ML PIGGYBACK IV ONE (15:00)
[2023-06-17] MEDS ORDERED: POTASSIUM CHLORIDE 10 MEQ TABCR PO ONE ×2 (20:00)
[2023-06-17] MEDS ORDERED: ondansetron HCL 4 MG/2 ML VIAL ONE (20:33)
[2023-06-17 21:06] VITALS: BP 136/57
[2023-06-17] MEDS ORDERED: DEXTROSE 5% - NACL 0.45% 1,000 ML IV SCH (21:15)
[2023-06-17] MEDS ORDERED: ondansetron HCL 4 MG/2 ML VIAL IV PRN (21:15)
[2023-06-17] MEDS ORDERED: CEFEPIME HCL/D5W 2 GM/100 ML PIGGYBACK IV SCH (22:00)
[2023-06-17] MEDS ORDERED: CEFEPIME HCL 1 GM in DEXTROSE 5% 100 ML IV SCH (23:00)
[2023-06-17] MEDS ORDERED: CEFEPIME HCL 1 GM VIAL ONE (23:08)
[2023-06-18] VITALS (10 sets, daily range): BP systolic 103–128; BP diastolic 47–79
[2023-06-18] MEDS ORDERED: CEFEPIME HCL 1 GM VIAL ONE (04:26)
[2023-06-18 05:33] LABS: BASOPHILS 0.8 % (0-2); EOSINOPHILS 0.1 % (0-6); HEMATOCRIT 33.9 % (35.0-50.0); HEMOGLOBIN 11.9 g/dL (12.0-18.0); LYMPHOCYTES 16.1 % (24-44); MCH 32.5 (27-36); MCHC 35.2 g/dl (30-36); MCV 92.3 fl (81-99); MONOCYTES 4.8 % (0-12); NEUTROPHILS 78.2 % (39-80); PLATELET COUNT 160 K/uL (140-440); RBC 3.67 M/ul (4.3-5.7)
[2023-06-18 05:43] LABS: BILIRUBIN, TOTAL 1.1 ng/dL (0.2-1.0); BUN/CREATININE RATIO 13.63 (6.0-28.6); CREATININE, SERUM 0.66 mg/dL (0.70-1.30)
[2023-06-18] MEDS ORDERED: D5%-NACL 0.9% 20 KCL 1,000 ML IV SCH (06:15)
[2023-06-18] MEDS ORDERED: POTASSIUM CHLORIDE 40 MEQ,LIDOCAINE HCL 1% 40 MG in DEXTROSE 5% 500 ML IV ONE (06:15)
[2023-06-18] MEDS ORDERED: ACETAMINOPHEN 325 MG TAB PO PRN (06:45)
[2023-06-18] MEDS ORDERED: PROCHLORPERAZINE EDISYLATE 10 MG/2 ML VIAL IV PRN (06:45)
[2023-06-18] MEDS ORDERED: HYDROmorphone HCL 1 MG/ML SYR IV PRN (06:45)
[2023-06-18] MEDS ORDERED: ACETAMINOPHEN 650 MG SUPP PR PRN (06:45)
[2023-06-18] MEDS ORDERED: HYDROCODONE/APAP 10/325 1 TAB PO PRN (06:45)
[2023-06-18] MEDS ORDERED: ondansetron HCL 4 MG/2 ML VIAL IV PRN (06:45)
--- NOTE | 2023-06-18 07:16 | CONS ---
[facility] [address] [place], [place] [address] Signed DATE OF CONSULTATION: 06/17/2023 CHIEF COMPLAINT: Right upper quadrant abdominal pain. HISTORY OF PRESENT ILLNESS: Richard is a 68-year-old gentleman, who has undergone a median sternotomy for repair of ascending aortic aneurysm. He also had a thoracotomy and had about 5% of the left lower lobe removed for cancer. That was about three years ago. Last night, he was having some right upper quadrant abdominal pain, by this morning, it was worse. He decided to come to the local emergency room for evaluation. His vital signs are stable. He does not appear systemically ill or toxic, but he is tender in the right upper quadrant. White count is elevated 22,000. A CT scan shows an inflammatory process, probably a mass with a contained perforated hepatic flexure. I had been asked to see as a local general surgeon on-call here in the emergency room. In the meantime, our hospitalist also came to look at his case as well. His and two adult sons are with him. PAST MEDICAL HISTORY: 1. Dyspnea on exertion. 2. Hypertension. 3. Hypercholesterolemia. 4. He is a prediabetic. 5. He has had lung cancer. 6. Sciatica. PAST SURGICAL HISTORY: 1. Includes his ascending thoracic aortic aneurysm repair at [facility]. 2. He had a left thoracotomy for removal of a left lower lobe at [facility] about three years ago. 3. He has had bilateral hand and elbow surgeries. 4. He had a trigger finger repair. 5. Some shoulder surgery. 6. Two colonoscopies with Dr. Leung. His last colonoscopy was just a few years ago in 2019. Apparently, everything was good except for some hemorrhoids. He tells me he cannot specifically remember any colonic polyps. SOCIAL HISTORY: He quit smoking years ago. He quit drinking years ago. He does do edibles for his chronic pain issues. Raiza Mena is primary care provider. His is Kim at [phone]. 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 Electronically Signed By: VITO LAUREANO MD 06/18/23 0716 PATIENT NAME: RICHARD PARHAM III CONSULTATION DATE OF : 53 REPORT #: [id number] PHYSICIAN: VITO LAUREANO MD PCP: RAIZA MENA REPORT IS CONFIDENTIAL AND NOT TO BE RELEASED WITHOUT AUTHORIZATION [facility] [address] [place], [place] [address] Signed FAMILY HISTORY: Told me his dad of asbestosis as a business intelligence director. REVIEW OF SYSTEMS: He had 10-systems reviewed and he was able to fill in some details about his heart. ALLERGIES: 1. Clindamycin. 2. Lisinopril. 3. Cephalexin. MEDICATIONS: 1. Albuterol. 2. Atorvastatin. 3. Metoprolol. 4. Irbesartan. 5. Tizanidine. 6. Indapamide. PHYSICAL EXAMINATION: VITAL SIGNS: His blood pressure is 118/73, his heart rate 84, his respiratory rate 24, he is 97.0 degrees, he is 97% on room air. He is 5 feet 5 inches at 91 kg with a body mass index of 33. GENERAL: Richard is a 68-year-old gentleman, lying supine semi-recumbent in his ER bed. His two adult sons and were in the room. He does not appear systemically ill or toxic. LUNGS: Clear to auscultation bilaterally. HEART: Regular rate and rhythm with a 2/6 systolic ejection murmur. ABDOMEN: Moderately protuberant, but soft. He is tender in the right upper quadrant. LABORATORY DATA: His white blood count 22.5, hemoglobin 13, neutrophils 84. Sodium a little low at 131, potassium a little low at 3.2, BUN good at 19, creatinine 0.71, glucose 168. Urinalysis negative. Liver function tests are negative. Albumin is 3.7. Lipase 32. CEA is not ordered. RADIOGRAPHIC STUDIES: CT scan of abdomen and pelvis is reviewed, both images and report. He clearly has thickened colon with some inflammatory process at the hepatic flexure. ASSESSMENT/PLAN: Richard is a 68-year-old gentleman, who has inflamed colon and probably a contained perforated hepatic flexure. This would be unlikely location for diverticulosis, but it is possible. More than likely it is a mass. I had reviewed all this with Richard and Electronically Signed By: VITO LAUREANO MD 06/18/23 0716 PATIENT NAME: RICHARD PARHAM III CONSULTATION DATE OF : 53 REPORT #: [id number] PHYSICIAN: VITO LAUREANO MD PCP: RAIZA MENA REPORT IS CONFIDENTIAL AND NOT TO BE RELEASED WITHOUT AUTHORIZATION [address] [address] Signed his and two sons in great detail. In the end, he is requesting transfer to a higher level of care. Given that request, I have relayed that to our ER physician. Our ER physician will make some phone calls and see if we can get him transferred to a higher level of care. He and his family expressed understanding and agreed to above plan. Vito Laureano MD ALB/MODL /[id number] cc: MD Raiza [place] Copies: VITO LAUREANO MD, ELIZABETH ~ Electronically Signed By: VITO LAUREANO MD 06/18/23 0716 PATIENT NAME: RICHARD PARHAM III CONSULTATION DATE OF : 53 REPORT #: [id number] PHYSICIAN: VITO LAUREANO MD PCP: RAIZA MENA REPORT IS CONFIDENTIAL AND NOT TO BE RELEASED WITHOUT AUTHORIZATION
[2023-06-18] MEDS ORDERED: PANTOPRAZOLE SODIUM 40 MG/10 ML VIAL IV SCH (09:00)
[2023-06-18] MEDS ORDERED: METOPROLOL TARTRATE 100 MG TAB PO SCH (09:00)
[2023-06-18] MEDS ORDERED: ENOXAPARIN SODIUM 40 MG/0.4 ML SYR SUB-Q SCH (09:00)
[2023-06-18] MEDS ORDERED: LIDODERM1 EACH TOP (09:51)
[2023-06-18] MEDS ORDERED: ZYRTEC10 MG PO (09:52)
[2023-06-18] MEDS ORDERED: LOSARTAN POTASSIUM 100 MG TAB PO SCH (11:28)
[2023-06-18] MEDS ORDERED: TIZANIDINE HCL 4 MG TABLET PO PRN (11:30)
[2023-06-18] MEDS ORDERED: INHALER, ASSIST DEVICES 1 EACH SPACER MISC ONE (11:30)
[2023-06-18] MEDS ORDERED: ALBUTEROL/IPRATROPIUM 3 ML NEB INH SCH (12:00)
[2023-06-18] MEDS ORDERED: LO-DOSE ASPIRIN81 MG PO (12:06)
[2023-06-18] MEDS ORDERED: DAILY VITE1 EAC1 PO (12:07)
[2023-06-18] MEDS ORDERED: PRILOSEC OTC20 MG PO (12:07)
[2023-06-18] MEDS ORDERED: CEFEPIME HCL/D5W 1 GM/100 ML PIGGYBACK IV SCH (14:00)
[2023-06-18] MEDS ORDERED: ALBUTEROL SULFATE 0.083% 3 ML VIAL INH PRN (16:00)
[2023-06-18] MEDS ORDERED: MAGNESIUM SULFATE 2 GM/50 ML BAG IV ONE (18:30)
[2023-06-18 18:43] LABS: CALCIUM 8.3 mg/dL (8.5-10.1); CREATININE, SERUM 0.7 mg/dL (0.70-1.30)
[2023-06-18] MEDS ORDERED: POTASSIUM CHLORIDE 10 MEQ/100 ML BAG IV SCH (19:30)
[2023-06-18] MEDS ORDERED: SODIUM CHLORIDE 0.9% 500 ML IV ONE (19:30)
[2023-06-18] MEDS ORDERED: SODIUM CHLORIDE 0.9% 1,000 ML IV SCH (19:30)
[2023-06-18] MEDS ORDERED: IBLOOD GLUCOSE TEST STRIP 1 EA TEST VI SCH (20:00)
[2023-06-18] MEDS ORDERED: POTASSIUM CHLORIDE 10 MEQ TABCR PO ONE ×2 (21:30→23:45)
[2023-06-18 23:22] LABS: ANION GAP 11.4 (7-21); BUN/CREATININE RATIO 8.69 (6.0-28.6); CALCIUM 7.9 mg/dL (8.5-10.1); CREATININE, SERUM 0.69 mg/dL (0.70-1.30); POTASSIUM 3.4 mmol/L (3.5-5.1)
[2023-06-18] MEDS ORDERED: SODIUM CHLORIDE 0.9% 500 ML IV PRN (23:45)
[2023-06-19] VITALS (22 sets, daily range): BP systolic 110–169; BP diastolic 47–84
[2023-06-19] MEDS ORDERED: Insulin Regular, Human 100 UNIT/ML ML SUB-Q SCH (02:00)
[2023-06-19 05:11] LABS: BASOPHILS 0.3 % (0-2); EOSINOPHILS 0.9 % (0-6); HEMATOCRIT 33.4 % (35.0-50.0); HEMOGLOBIN 11.2 g/dL (12.0-18.0); LYMPHOCYTES 27.4 % (24-44); MCH 31.9 (27-36); MCHC 33.7 g/dl (30-36); MCV 94.8 fl (81-99); MONOCYTES 5.5 % (0-12); NEUTROPHILS 65.9 % (39-80); PLATELET COUNT 127 K/uL (140-440); RBC 3.52 M/ul (4.3-5.7); RDW 14.3 (10.5-15.0)
[2023-06-19 05:22] LABS: ANION GAP 12.5 (7-21); BUN/CREATININE RATIO 11.47 (6.0-28.6); CALCIUM 8.2 mg/dL (8.5-10.1); CREATININE, SERUM 0.61 mg/dL (0.70-1.30); MAGNESIUM 2.2 mg/dL (1.8-2.4); PHOSPHORUS, INORGANIC 2.4 mg/dL (2.5-4.9); POTASSIUM 3.5 mmol/L (3.5-5.1)
[2023-06-19] MEDS ORDERED: ROCURONIUM BROMIDE 50 MG/5 ML SYR ONE (06:31)
[2023-06-19] MEDS ORDERED: MIDAZOLAM HCL 2 MG/2 ML VIAL ONE ×2 (06:31→13:43)
[2023-06-19] MEDS ORDERED: KETOROLAC TROMETHAMINE 30 MG/ML VIAL ONE (06:31)
[2023-06-19] MEDS ORDERED: SUGAMMADEX SODIUM 200 MG/2 ML ML ONE (06:31)
[2023-06-19] MEDS ORDERED: FAMOTIDINE 20 MG/ 2 ML VIAL ONE (06:31)
[2023-06-19] MEDS ORDERED: LIDOCAINE HCL 4% 5 ML AMP ONE (06:31)
[2023-06-19] MEDS ORDERED: propofoL 200 MG/20 ML VIAL ONE (06:31)
[2023-06-19] MEDS ORDERED: SUCCINYLCHOLINE IN 0.9% NACL 200 MG/10 ML SYRINGE ONE ×2 (06:31→12:26)
[2023-06-19] MEDS ORDERED: LACTATED RINGER'S 1,000 ML IV ONE ×4 (06:31→12:01)
[2023-06-19] MEDS ORDERED: DEXAMETHASONE SOD PHOS 4 MG/ML VIAL ONE ×2 (06:31→10:20)
[2023-06-19] MEDS ORDERED: METOCLOPRAMIDE HCL 10 MG/2 ML SDV ONE (06:31)
[2023-06-19] MEDS ORDERED: ondansetron HCL 4 MG/2 ML VIAL ONE (06:31)
[2023-06-19] MEDS ORDERED: fentaNYL citrate 100 MCG/2 ML VIAL ONE (06:31)
[2023-06-19] MEDS ORDERED: POTASSIUM PHOSPHATE 30 MMOL in DEXTROSE 5% 500 ML IV ONE (06:45)
--- NOTE | 2023-06-19 07:45 | EKG ---
[facility] [address] [facility] [place] [address] Signed Sinus rhythm with premature atrial complexes Minimal voltage criteria for LVH, may be normal variant ( R in aVL ) Nonspecific ST and T wave abnormality Abnormal ECG When compared with ECG of 19-JAN-2017 23:27, premature atrial complexes are now present Confirmed by CODY GARRETT MD ([id number]) on 06/19/2023 7:45:35 AM Electronically Signed By: CODY GARRETT 06/19/23 0745 PATIENT NAME: MARTITA PARHAM III Electrocardiogram DATE OF : 53 PHYSICIAN: CODY GARRETT REPORT #: [id number] REPORT IS CONFIDENTIAL AND NOT TO BE RELEASED WITHOUT AUTHORIZATION
[2023-06-19] MEDS ORDERED: PHENYLEPHRINE HCL 10 MG/ML VIAL ONE (10:20)
[2023-06-19] MEDS ORDERED: DIGOXIN 500 MCG/2 ML AMP ONE (10:20)
[2023-06-19] MEDS ORDERED: HYDROCORTISONE SOD SUCCINATE 100 MG/2 ML VIAL ONE (10:20)
[2023-06-19] MEDS ORDERED: ondansetron HCL 4 MG/2 ML VIAL IV PRN (11:30)
[2023-06-19] MEDS ORDERED: fentaNYL citrate 100 MCG/2 ML VIAL IV PRN (11:30)
[2023-06-19] MEDS ORDERED: PROCHLORPERAZINE EDISYLATE 10 MG/2 ML VIAL IV PRN (11:30)
[2023-06-19] MEDS ORDERED: droPERidol 5 MG/2 ML VIAL IV PRN (11:30)
[2023-06-19] MEDS ORDERED: METOCLOPRAMIDE HCL 10 MG/2 ML SDV IV PRN (11:30)
[2023-06-19] MEDS ORDERED: IBLOOD GLUCOSE TEST STRIP 1 EA TEST VI PRN (11:30)
[2023-06-19] MEDS ORDERED: NALOXONE HCL 0.4 MG SYR IV PRN (11:30)
[2023-06-19] MEDS ORDERED: MORPHINE SULFATE 10 MG/ML VIAL IV PRN (11:30)
[2023-06-19] MEDS ORDERED: ESMOLOL HCL 100 MG/10 ML VIAL IV ONE (12:33)
[2023-06-19] MEDS ORDERED: BUPIVACAINE HCL 0.25% 50 ML MDV ONE (12:42)
[2023-06-19] MEDS ORDERED: LIDOCAINE 1% W/ EPI 1:200,000 30 ML SDV ONE (12:43)
[2023-06-19] MEDS ORDERED: FUROSEMIDE 40 MG/4 ML VIAL ONE (13:26)
[2023-06-19 14:03] LABS: BASOPHILS 0.2 % (0-2); EOSINOPHILS 0.3 % (0-6); HEMATOCRIT 34.1 % (35.0-50.0); HEMOGLOBIN 11.3 g/dL (12.0-18.0); LYMPHOCYTES 18.9 % (24-44); MCH 31.8 (27-36); MCHC 33.2 g/dl (30-36); MCV 95.7 fl (81-99); MONOCYTES 2.9 % (0-12); NEUTROPHILS 77.7 % (39-80); PLATELET COUNT 158 K/uL (140-440); RBC 3.56 M/ul (4.3-5.7); RDW 14.5 (10.5-15.0)
[2023-06-19] MEDS ORDERED: MIDAZOLAM HCL 2 MG/2 ML VIAL IV ONE (14:15)
[2023-06-19] MEDS ORDERED: FUROSEMIDE 40 MG/4 ML VIAL IV ONE (14:15)
[2023-06-19 14:30] LABS: ALBUMIN 2.4 g/dL (3.4-5.0); ALBUMIN/GLOBULIN RATIO 0.83 (1.1-2.4); ANION GAP 11.4 (7-21); BILIRUBIN, TOTAL 0.7 ng/dL (0.2-1.0); BUN/CREATININE RATIO 8.86 (6.0-28.6); CALCIUM 7.4 mg/dL (8.5-10.1); CREATININE, SERUM 0.79 mg/dL (0.70-1.30); POTASSIUM 4.4 mmol/L (3.5-5.1); PROTEIN, TOTAL 5.3 g/dL (6.4-8.2)
--- NOTE | 2023-06-19 16:19 | OR ---
[facility] [address], [place] [address] Signed DATE OF OPERATION: 06/19/2023 SURGEON: Vito Laureano MD PREOPERATIVE DIAGNOSIS: Inflammatory mass/diverticulum hepatic flexure of colon. 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 PROCEDURE: Right colectomy with isoperistaltic wneb-tv-ofwq hand-sewn anastomosis in two layers. ESTIMATED BLOOD LOSS: 250 mL. INDICATIONS: Richard is a 68-year-old prediabetic obese gentleman, who actually had to have his aortic arch replaced with a Dacron graft for an aneurysm. He had this done in 2013. He then had the upper segment of his left lower lobe removed for an adenocarcinoma of lung about three years ago. That was performed fluoroscopically. He also has quite a bit of sciatica that bothers him. He had developed pain in his right upper quadrant fairly abruptly over a day or so. He finally came to the emergency room for evaluation. He was tender in the right upper quadrant. White count was elevated at 22.5. CT scan of abdomen and pelvis shows his inflammatory mass contained perforation, possibly a diverticulum and hepatic flexure of the colon. I have been asked to admit him as a general surgeon on-call. I met with Richard and his family initially in the ER and again in the hospital in the morning. We found that his sodium was low along with the potassium, so we had to get that corrected. We did have help from our hospitalist service. I brought a brochure with respect to colon and colon surgery. I circled the sections relevant to him and explained to him the right colectomy and the area of colon that we needed to remove. We reviewed the expected intraop and postop course. There is risk of surgery including, but not limited to bleeding, infection, scarring, change in contour of the skin, damage to bowel, anastomotic leak, incisional hernias and other unforeseen comorbidities. He and his family had expressed understanding and wished to proceed. DESCRIPTION OF PROCEDURE: I met with Richard and his family once again in our preop area. After this, he was taken into the operating room and placed in the supine position under general Electronically Signed By: VITO LAUREANO MD 06/19/23 1619 PATIENT NAME: RICHARD PARHAM III OPERATIVE REPORT DATE OF : 53 REPORT #: [id number] PHYSICIAN: VITO LAUREANO MD PCP: RAIZA MENA REPORT IS CONFIDENTIAL AND NOT TO BE RELEASED WITHOUT AUTHORIZATION [facility] [address], [place] [address] Signed endotracheal tube anesthesia. He was on preoperative antibiotics. He had SCDs in place. Lovenox was held this morning because his platelet count had dropped. Our hospitalist service is going to check with the lab to see if that was clumped. After this, a Null catheter was inserted with return of clear yellow urine without difficulty. He was then prepped and draped in the usual sterile fashion. We used a standard periumbilical incision, carried that into the abdomen with the help of the cautery. It took just a minute to find this inflammatory mass in the hepatic flexure. It was contained on the mesenteric side. As I looked at the colonic wall itself, it seemed quite viable and quite normal in thickness except on the mesenteric side. We then proceeded to place the Bookwalter tractor. The white line of Toldt was taken out of the cautery around the hepatic flexure and over towards the midline of the abdomen. That allowed us to bring the entire right colon out of the abdomen. We divided the colon just to the right of the middle colic artery and also divided the terminal ileum just a few inches in front of the ileocecal valve. The mesentery was taken down between Pean clamps and 0 Vicryl ties. There was just a little bit of bleeding near the head of the pancreas but fortunately it was not into the pancreas itself. We just oversewed that, gave us nice hemostasis. This was venous bleeding. After this, the specimen was passed off the field and opened by our circulating nurse. We could see this diverticulum that was contained into the mesenteric side of the bowel. No obvious tumor. Little bit of induration around the diverticulum. The hole was fairly sizable probably 1.5 cm. After this, we brought the small bowel up to the proximal transverse colon and we performed a ygzn-uq-tdiu anastomosis two layers with Vicryl and silk sutures. It was about 4 cm in length. We closed the mesenteric rent with a running 3-0 Vicryl suture. The abdomen was irrigated and suctioned out until clear. All counts were correct. We then closed the midline fascia with interrupted #1 yalggx-xw-qkoon PDS sutures. We injected local anesthetic into his abdominal wall. The wound was irrigated and suctioned out until clear. We brought the dermis back together with interrupted 3-0 subcuticular and Monocryl sutures. The skin edges were reapproximated with mina. Dry gauze and tape was then applied. Richard was awakened from his anesthesia, extubated in the OR, and taken to the recovery room in stable condition. Vito Laureano MD ALB/MODL /[id number] Electronically Signed By: VITO LAUREANO MD 06/19/23 1619 PATIENT NAME: RICHARD PARHAM III OPERATIVE REPORT DATE OF : 53 REPORT #: [id number] PHYSICIAN: VITO LAUREANO MD PCP: RAIZA MENA REPORT IS CONFIDENTIAL AND NOT TO BE RELEASED WITHOUT AUTHORIZATION [address] [address] Signed cc: MD Raiza Lambert Copies: VITO LAUREANO MD, ELIZABETH ~ Electronically Signed By: VITO LAUREANO MD 06/19/23 1619 PATIENT NAME: RICHARD PARHAM III OPERATIVE REPORT DATE OF : 53 REPORT #: [id number] PHYSICIAN: VITO LAUREANO MD PCP: RAIZA MENA REPORT IS CONFIDENTIAL AND NOT TO BE RELEASED WITHOUT AUTHORIZATION
[2023-06-19] MEDS ORDERED: MIDAZOLAM HCL 2 MG/2 ML VIAL IV PRN (16:45)
[2023-06-20] VITALS (14 sets, daily range): BP systolic 115–159; BP diastolic 54–93
[2023-06-20 05:26] LABS: BASOPHILS 0.2 % (0-2); EOSINOPHILS 0.1 % (0-6); HEMATOCRIT 33.6 % (35.0-50.0); HEMOGLOBIN 11.4 g/dL (12.0-18.0); LYMPHOCYTES 11.2 % (24-44); MCHC 33.8 g/dl (30-36); MCV 94.7 fl (81-99); MONOCYTES 6.3 % (0-12); NEUTROPHILS 82.2 % (39-80); PLATELET COUNT 161 K/uL (140-440); RBC 3.55 M/ul (4.3-5.7)
[2023-06-20 05:48] LABS: ANION GAP 13.8 (7-21); BUN/CREATININE RATIO 13.92 (6.0-28.6); CALCIUM 8.1 mg/dL (8.5-10.1); CREATININE, SERUM 0.79 mg/dL (0.70-1.30); MAGNESIUM 1.7 mg/dL (1.8-2.4); PHOSPHORUS, INORGANIC 3.5 mg/dL (2.5-4.9); POTASSIUM 3.8 mmol/L (3.5-5.1)
[2023-06-20] MEDS ORDERED: MAGNESIUM SULFATE 3 GM in SODIUM CHLORIDE 0.9% 100 ML IV ONE (06:30)
[2023-06-20] MEDS ORDERED: FUROSEMIDE 20 MG/2 ML VIAL IV ONE (06:45)
[2023-06-20] MEDS ORDERED: IBLOOD GLUCOSE TEST STRIP 1 EA TEST XX PRN (14:45)
[2023-06-20] MEDS ORDERED: DEXTROSE 50% 50 ML SYR IV PRN ×2 (14:45)
[2023-06-20] MEDS ORDERED: DEXTROSE 5% 1,000 ML IV PRN (14:45)
[2023-06-20] MEDS ORDERED: GLUCAGON,HUMAN RECOMBINANT 1 MG/ML VIAL SUB-Q PRN (14:45)
[2023-06-20] MEDS ORDERED: IBLOOD GLUCOSE TEST STRIP 1 EA TEST VI SCH ×2 (16:00→17:00)
[2023-06-20] MEDS ORDERED: INSULIN LISPRO 100 UNIT/ML ML SUB-Q SCH (17:00)
[2023-06-20 20:08] LABS: PREALBUMIN 17.1 mg/dL (20.0-40.0)
[2023-06-20 20:24] LABS: CARCINOEMBRYONIC ANTIGEN 1.1 ng/mL (())
[2023-06-20] MEDS ORDERED: MAGNESIUM SULFATE 4 GM/100 ML BAG IV ONE (21:00)
[2023-06-20] MEDS ORDERED: POTASSIUM CHLORIDE 10 MEQ TABCR PO ONE (21:00)
[2023-06-20] MEDS ORDERED: FUROSEMIDE 40 MG/4 ML VIAL IV ONE (21:00)
[2023-06-21] VITALS (10 sets, daily range): BP systolic 114–163; BP diastolic 46–82
[2023-06-21 05:34] LABS: BASOPHILS 0.1 % (0-2); EOSINOPHILS 0.3 % (0-6); HEMATOCRIT 31.3 % (35.0-50.0); HEMOGLOBIN 10.7 g/dL (12.0-18.0); MCHC 34.1 g/dl (30-36); MCV 93.9 fl (81-99); MONOCYTES 8.7 % (0-12); NEUTROPHILS 68.9 % (39-80); PLATELET COUNT 185 K/uL (140-440); RBC 3.33 M/ul (4.3-5.7); RDW 14.1 (10.5-15.0)
[2023-06-21 05:50] LABS: ANION GAP 11.2 (7-21); BUN/CREATININE RATIO 18.18 (6.0-28.6); CALCIUM 7.9 mg/dL (8.5-10.1); CREATININE, SERUM 0.66 mg/dL (0.70-1.30); MAGNESIUM 1.8 mg/dL (1.8-2.4); PHOSPHORUS, INORGANIC 2.4 mg/dL (2.5-4.9); POTASSIUM 3.2 mmol/L (3.5-5.1)
[2023-06-21] MEDS ORDERED: POTASSIUM CHLORIDE 10 MEQ TABCR PO ONE (07:15)
[2023-06-21] MEDS ORDERED: SOD PHOS MONO/SOD PHOS DIBAS 250 MG TAB PO ONE (07:15)
[2023-06-21] MEDS ORDERED: MAGNESIUM OXIDE 400 MG TABLET PO SCH (09:00)
[2023-06-21] MEDS ORDERED: INSULIN GLARGINE-YFGN 100 UNIT/ML ML SUB-Q SCH (09:00)
[2023-06-21] MEDS ORDERED: PANTOPRAZOLE SODIUM 40 MG TABEC PO SCH (09:00)
[2023-06-21] MEDS ORDERED: Perflutren Lipid Microspheres 2.2 MG/2 ML VIAL IV ONE (10:52)
[2023-06-22] VITALS (7 sets, daily range): BP systolic 105–180; BP diastolic 44–79
[2023-06-22 09:53] LABS: BASOPHILS 0.1 % (0-2); EOSINOPHILS 1.2 % (0-6); HEMATOCRIT 32.4 % (35.0-50.0); LYMPHOCYTES 20.3 % (24-44); MCH 31.9 (27-36); MCV 93.6 fl (81-99); MONOCYTES 8.2 % (0-12); NEUTROPHILS 70.2 % (39-80); PLATELET COUNT 222 K/uL (140-440); RBC 3.46 M/ul (4.3-5.7)
[2023-06-22 10:01] LABS: ANION GAP 11.2 (7-21); BUN/CREATININE RATIO 19.04 (6.0-28.6); CALCIUM 8.2 mg/dL (8.5-10.1); CREATININE, SERUM 0.63 mg/dL (0.70-1.30); MAGNESIUM 1.6 mg/dL (1.8-2.4); POTASSIUM 3.2 mmol/L (3.5-5.1)
[2023-06-22] MEDS ORDERED: FUROSEMIDE 40 MG/4 ML VIAL IV SCH (10:05)
[2023-06-22] MEDS ORDERED: POTASSIUM CHLORIDE 10 MEQ TABCR PO ONE ×3 (19:30→23:00)
[2023-06-22] MEDS ORDERED: CIPROFLOXACIN 500 MG TAB PO SCH (21:00)
[2023-06-22] MEDS ORDERED: metroNIDAZOLE 250 MG TAB PO SCH (22:00)
[2023-06-23] VITALS (7 sets, daily range): BP systolic 119–156; BP diastolic 59–80
[2023-06-23 09:10] LABS: BASOPHILS 0.4 % (0-2); EOSINOPHILS 1.6 % (0-6); HEMATOCRIT 32.5 % (35.0-50.0); HEMOGLOBIN 11.1 g/dL (12.0-18.0); LYMPHOCYTES 29.8 % (24-44); MCH 32.1 (27-36); MCHC 33.9 g/dl (30-36); MCV 94.5 fl (81-99); NEUTROPHILS 61.2 % (39-80); PLATELET COUNT 247 K/uL (140-440); RBC 3.45 M/ul (4.3-5.7); RDW 14.1 (10.5-15.0)
[2023-06-23 09:19] LABS: ANION GAP 13.8 (7-21); BUN/CREATININE RATIO 14.28 (6.0-28.6); CALCIUM 8.6 mg/dL (8.5-10.1); CREATININE, SERUM 0.7 mg/dL (0.70-1.30); MAGNESIUM 1.7 mg/dL (1.8-2.4); POTASSIUM 3.8 mmol/L (3.5-5.1)
[2023-06-24 05:59] VITALS: BP 160/66
[2023-06-24] MEDS ORDERED: CIPRO500 MG PO (08:58)
[2023-06-24] MEDS ORDERED: METRONIDAZOLE250 MG PO (08:58)
[2023-06-24] MEDS ORDERED: HYDROCODON-ACE1 EAC8 PO (08:58)
[2023-06-24 09:14] LABS: BASOPHILS 0.4 % (0-2); EOSINOPHILS 2.2 % (0-6); HEMATOCRIT 32.7 % (35.0-50.0); HEMOGLOBIN 11.1 g/dL (12.0-18.0); LYMPHOCYTES 27.3 % (24-44); MCH 31.9 (27-36); NEUTROPHILS 63.1 % (39-80); PLATELET COUNT 293 K/uL (140-440); RBC 3.47 M/ul (4.3-5.7); RDW 14.5 (10.5-15.0)
[2023-06-24 09:23] LABS: ANION GAP 11.9 (7-21); BUN/CREATININE RATIO 17.18 (6.0-28.6); CALCIUM 8.5 mg/dL (8.5-10.1); CREATININE, SERUM 0.64 mg/dL (0.70-1.30); MAGNESIUM 1.8 mg/dL (1.8-2.4); POTASSIUM 3.9 mmol/L (3.5-5.1)
[2023-06-24 09:41] VITALS: BP 159/79
[2023-06-24 09:50] VITALS: BP 159/79
--- NOTE | 2023-06-24 12:55 | PATH ---
[facility] [address], [place] [address] Signed SPECIMEN(S): A HEPATIC FLEXURE COLON SPECIMEN SOURCE: A. HEPATIC FLEXURE COLON CLINICAL HISTORY: Hepatic flexure mass/contained, perforation. FINAL PATHOLOGIC DIAGNOSIS: Colon, right hemicolectomy: - Colonic mucosa with ischemic pattern colitis and associated perforation and serositis - Surgical margins appear viable - Appendix with no significant pathologic changes - Negative for malignancy BRP MICROSCOPIC EXAMINATION: Histologic sections of all submitted blocks are examined by light microscopy. These findings, together with the gross examination, support the pathologic diagnosis. GROSS DESCRIPTION: The specimen, labeled and designated "Sigo, A" and designated on the requisition "hepatic flexure colon inflammatory mass," is received in formalin and consists of a previously opened portion of right colon (terminal ileum: 2.0 cm in length by 3.0 cm in circumference, cecum, ascending and transverse colon (21.5 cm in length by 7.5 cm in circumference) with attached appendix on the cecum that measures 5.7 cm in length by 0.5 cm in diameter, and attached mesenteric fat and omentum that extends up to 16 cm. The serosa is olivares-pink to red-brown and glistening and the mucosa is pink-olivares and proximally unremarkable with distal perforation (1.5 x 1.2 cm) within the transverse colon, located 2.5 cm from the distal bowel margin. The perforation is inked blue. The perforated area extends into the omentum. No discrete mass or lesions are identified. The appendix is sectioned to reveal pink-olivares to red-brown mucosa with soft fecal material within the lumen. Bandage Wrapping Machine Operator sections are submitted. Cassette Summary: PATIENT NAME: MARTITA PARHAM III PATHOLOGY DATE OF : 53 REPORT #: [id number] PHYSICIAN: BRIANA CLEANING PCP: KEMI MENA REPORT IS CONFIDENTIAL AND NOT TO BE RELEASED WITHOUT AUTHORIZATION [facility] [address], [place] [address] Signed (A1-A4) perforated area (A5) distal bowel margin, shaved (A6) ileal margin, shaved (A7) ileum and ileocecal valve (A8) cecum and ascending colon (A9) appendix AC (under the direct supervision of a pathologist) The Gross Description was prepared using a voice recognition system. The report was reviewed for accuracy; however, sound-alike word errors, addition and/or deletions may occur. If there is any question about this report, please contact Client Services. ADDITIONAL NOTES: Immunohistochemical and/or in situ hybridization studies if performed in this case included appropriate positive controls that reacted as expected. This test was developed and its performance characteristics determined by [facility]. It has not been cleared or approved by the U.S. Food and Drug Administration. The FDA has determined that such clearance or approval is not necessary. This test is used for clinical purposes. It should not be regarded as investigational or for research. [facility] is certified under the Clinical Laboratory Improvement Amendments of 1988 (CLIA) as qualified to perform high complexity clinical laboratory testing. PERFORMING LABORATORY: Technical component was performed by [facility], [address] [place] [id number] (CLIA# [id number]). Professional interpretation was performed by [facility] [address] [place] [id number] Diagnostician: Manuelito Pickens MD Pathologist Electronically Signed 06/24/2023 Copies: ~ PATIENT NAME: MARTITA PARHAM III PATHOLOGY DATE OF : 53 REPORT #: [id number] PHYSICIAN: BRIANA PATHOLOGY PCP: KEMI MENA REPORT IS CONFIDENTIAL AND NOT TO BE RELEASED WITHOUT AUTHORIZATION
--- NOTE | 2023-06-25 07:01 | DS ---
[facility] [address], [place] [address] Signed ADMISSION DATE: 06/17/2023 DISCHARGE DATE: FINAL DIAGNOSIS: Infected diverticulum, hepatic flexure of colon. PROCEDURE: Right colectomy with isoperistaltic mypd-vh-tukb hand-sewn anastomosis. HOSPITAL COURSE: Richard is a 68-year-old gentleman, who presented with right upper quadrant abdominal pain for about a day or so. His white count was elevated. He was tender in the right upper quadrant. The CT scan showed an inflamed mass with probably a diverticulum in hepatic flexure. I have been asked to admit him as a general surgeon on-call. He was started on cefepime and Flagyl. We also consult the Medical Service because of his significant past medical history. He went to surgery on 06/19/2023 for his right colectomy with isoperistaltic pinr-lj-xscw hand-sewn anastomosis. In the ED, he appears to have an inflamed diverticulum with infection in the hepatic flexure. He was improving on the cefepime and Flagyl. In my absence, Dr. Leung helped, covered from a surgical standpoint. He has required some Lasix for diuresis. He looks and feels much better today. His echocardiogram is pending. The pathology report is also pending. At this point, he is having a regular diet, had a bowel movement and having lots of flatus. I can see he looks and feels much better. He is certainly less edematous. His abdomen is always protuberant at baseline, but it is now soft, nontender and no tympany. He is having a little serous fluid around his periumbilical incision, but it is not infected. He has been using dry gauze in that regard. He has been asking to go home that certainly seems reasonable with his family. DISCHARGE PLANS AND MEDICATIONS: Richard is going to be discharged to home with Cipro 500 mg one p.o. b.i.d., dispense 10 tablets with no refills. He will have Flagyl 250 mg one p.o. t.i.d., dispense 15 tablets with no refills. He also is going to be given Ethel 10/325 one tablet p.o. q.6 hours p.r.n. for severe postoperative pain, dispensed 15 tablets with no refills. He will use Tylenol p.r.n. for vjjk-du-ogowlnem postoperative pain, which he can purchase zdmj-iob-clftchw. He told me he is a prediabetic, and therefore should probably stay away from NSAIDs. He is going to resume all his chronic medications. He said he is getting low on his albuterol. He needs to talk to his primary care provider to have that refilled. He needs also see his primary care provider here in the next 7-10 days at [facility] for followup on his echocardiogram and his presentation with increasing shortness of breath and dyspnea on exertion one month prior to admission. He probably has some level of heart failure. He is allowed to have a regular diet. He can Electronically Signed By: VITO LAUREANO MD 06/25/23 0701 PATIENT NAME: RICHARD PARHAM III DISCHARGE SUMMARY DATE OF : 53 REPORT #: [id number] PHYSICIAN: VITO LAUREANO MD PCP: RAIZA MENA REPORT IS CONFIDENTIAL AND NOT TO BE RELEASED WITHOUT AUTHORIZATION [facility] [address] [place] [id number] Signed perform his activities of daily living. He should not do any heavy pushing, pulling, or lifting over about 20 pounds. He is welcome to shower and bathe as usual. He has an abdominal binder, which he is going to take home with him. He can use gauze over the incision to collect the serous drainage. We will leave all the mina in place. I am going to have him back in the office in about 7-10 days for followup. I have reviewed this with Richard and the nurse today. He has expressed understanding and agrees with the above plan. Vito Laureano MD ALB/MODL /[id number] cc: Raiza Laureano MD Patient Chart Copies: RAIZA MENA ANDREW L MD ~ Electronically Signed By: VITO LAUREANO MD 06/25/23 0701 PATIENT NAME: RICHARD PARHAM III DISCHARGE SUMMARY DATE OF : 53 REPORT #: [id number] PHYSICIAN: VITO LAUREANO MD PCP: RAIZA MENA REPORT IS CONFIDENTIAL AND NOT TO BE RELEASED WITHOUT AUTHORIZATION
== END 2023-06-24 11:03 | disposition home or self-care (01) | DRG 330 ==
LOC: ED 12:13 → CCU 20:23 → MS 20:23 → CCU 06-19 14:50 → MS 06-20 13:30
PROVIDERS: Emergency Medicine; Internal Medicine; Nurse Anesthetist, Certified Registered; ADMIT Colon & Rectal Surgery; ATTEND Colon & Rectal Surgery
PROC: 0DTF0ZZ Resection of Right Large Intestine, Open Approach (ICD-10-PCS; principal; 2023-06-19 09:45)
DX: K57.20 Diverticulitis of large intestine with perforation and abscess without bleeding (principal); E87.1 Hypo-osmolality and hyponatremia; I10 Essential (primary) hypertension; E78.00 Pure hypercholesterolemia, unspecified; M54.30 Sciatica, unspecified side; E87.6 Hypokalemia; R73.03 Prediabetes; Z98.890 Other specified postprocedural states; Z87.891 Personal history of nicotine dependence; Z86.16 Personal history of COVID-19; Z88.1 Allergy status to other antibiotic agents; Z88.8 Allergy status to other drugs, medicaments and biological substances; Z79.51 Long term (current) use of inhaled steroids; Z79.899 Other long term (current) drug therapy; Z85.118 Personal history of other malignant neoplasm of bronchus and lung
CPT/HCPCS: 00840; 36415; 71045; 74177; 80048; 80053; 81003; 82378; 82803; 83690; 83735; 83880; 84100; 84134; 84300; 85025; 85060; 88307; 93005; 93010; 93306; 94640; 94660; 94760; 96361; 96367; 96375; 99285-25; A9270; C9113; J0330; J0692; J1100; J1160; J1170; J1650; J1720; J1815; J1885; J1940; J2250; J2371; J2405; J2704; J2765; J3010; J3475; J3480; J3490; J7030; J7040; J7042; J7060; J7121; Q9957; Q9967